=== PATIENT | female | born 1965 | race Caucasian/White ===

== ENCOUNTER 2024-07-15 13:50 | Emergency (ER) | payer OTHER, SELFPAY ==
[2024-07-15 14:19] VITALS: BP 167/54; PULSE 87; RESP 18; TEMP 36.5; O2SAT 97; BMI 36.9
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
--- OUTSIDE RECORDS SUMMARY | 2024-07-15 15:35 | XMS_ITS | Continuity of Care Document ---
Author Organization [facility] Address [address] [place] [address]- Care Team Providers Care Director Database Name Role Phone Santi James MD Primary Care Physician Encounter [facility] Date(s): 09/27/22 - 10/27/22 [facility] [address] [place], [place] [address] Allergies, Adverse Reactions, Alerts Substance Reaction Severity Status doxycycline Hives Active nitrofurantoin Pruritus Rash Active morphine Active benzonatate Speech impediment Active Percocet Active Demerol Active Lopid Muscle cramps Myalgia and myositis unspecified Active Biaxin Upset stomach Active Lipitor Myalgia unspecified Muscle cramps Active Levaquin Hives Active Immunizations Given and Recorded Vaccine Date Status Refusal Reason influenza virus vaccine, inactivated 08/01/22 Nitin rded influenza virus vaccine, inactivated 08/09/21 Nitin rded influenza virus vaccine, inactivated 07/11/20 Nitin rded influenza virus vaccine, inactivated 08/01/17 Nitin rded influenza virus vaccine, inactivated 07/23/17 Nitin rded influenza virus vaccine, inactivated 1 06/24/16 Gi cristel influenza virus vaccine, inactivated 2 07/31/15 Re corded influenza virus vaccine, inactivated 3 07/01/14 Gi cristel influenza virus vaccine, inactivated 4 07/02/12 Gi cristel influenza virus vaccine, inactivated 5 08/03/11 Gi cristel influenza virus vaccine, inactivated 6 07/08/10 Gi cristel influenza virus vaccine, inactivated 7 08/22/08 Gi cristel Measles/Mumps/Rubella Virus Vaccine 05/10/22 Recor ded Measles/Mumps/Rubella Virus Vaccine 04/12/22 Recor ded SARS-CoV-2 (COVID-19) mRNA-1273 vaccine 04/15/22 R ecorded SARS-CoV-2 (COVID-19) mRNA-1273 vaccine 06/30/21 R ecorded SARS-CoV-2 (COVID-19) mRNA BNT-162b2 vac 12/11/20 Recorded SARS-CoV-2 (COVID-19) mRNA BNT-162b2 vac 11/13/20 Recorded pneumococcal 13-valent vaccine 07/11/20 Recorded pneumococcal 13-valent vaccine 06/19/19 Recorded pneumococcal 13-valent vaccine 8 06/24/16 Given zoster vaccine, inactivated 08/20/19 Recorded zoster vaccine, inactivated 06/19/19 Recorded Influenza Virus Vaccine (oldterm) 08/03/19 Recorde d Influenza Virus Vaccine (oldterm) 9 07/11/09 Given Influenza Virus Vaccine (oldterm) 10 12/07/07 Give n tetanus/diphtheria/pertussis, acel(Tdap) 11 01/25/19 Given tetanus/diphtheria/pertussis, acel(Tdap) 11/12/17 Recorded pneumococcal 23-valent vaccine 12 08/31/18 Given pneumococcal 23-valent vaccine 13 08/24/15 Given Human Papillomavirus Vaccine 07/05/11 Given influ virus vac, H1N1, inactive(oldterm) 14 12/05/09 Given tetanus-diphtheria toxoids (Td) 15 05/12/07 Given tetanus-diphtheria toxoids (Td) 11/03/99 Given 1Admin Note: done @ [facility],form received 2Result Comment: [07/31/2015] [facility] 3Admin Note: done @ [facility] 4Admin Note: vis sheet given. 5Admin Note: work 6Admin Note: given at [facility] in [place] 7Admin Note: per pt, done at [facility] 8Admin Note: done @ [facility], form received 9Admin Note: given at work 10Admin Note: given in the fall 11Result Comment: [id number] 12Result Comment: [08/31/2018] [id number] 13Result Comment: [08/24/2015] given w/out incident 14Admin Note: per pt 15Admin Note: [facility] [employer] Medications acetaminophen 650 mg oral tablet, extended release 1 tablet, By Mouth, Every 8 hours, PRN NEEDED FOR PAIN, # 90 tablet, 3 Refills, [facility],156, cm, 04/04/22 7:36:00 EDT, Height, 78.9, kg, 04/04/22 7:36:00 EDT, Dry Weight Start Date: 04/08/22 Status: Ordered Albuterol (Eqv-ProAir HFA) 90 mcg/inh inhalation aerosol 2 puffs, Inhalation, Every 6 hours, PRN Wheezing/Shortness of Breath, # 6.7 Gm, 11 Refills, Maintenance, 08/29/22 9:07:00 EDT, [facility]/pharmacy #[id number], Partial fill upon patient request if the prescription is for a schedule II opioid drug., 2 puffs Inhalat... Start Date: 08/29/22 Status: Ordered aspirin 81 mg oral tablet 1 tablet = 81 mg, By Mouth, Daily, # 30 tablet, 10 Refills, Maintenance, 12/09/19 10:24:00 EST, Tablet Start Date: 12/09/19 Stop Date: 11/03/20 Status: Ordered azelastine nasal 0.15% spray 1 sprays, Nares, Both, 2 times a day, PRN for allergy symptoms, # 1 each, 4 Refills, Maintenance, 02/07/22 12:08:00 EDT, [place], [facility]/pharmacy #[id number], Partial fill upon patient request if the prescription is for a schedule II opioid drug., 1 sprays Nares... Start Date: 02/07/22 Stop Date: 07/07/22 Status: Ordered cetirizine 10 mg oral tablet 1 tablet, By Mouth, Daily, # 90 tablet, 3 Refills, [id number], 156, cm, 03/18/22 8:26:00 EDT, Height Start Date: 03/29/22 Status: Ordered CPAP at 8mmHg CPAP at 8mmHg, See Instructions, # 1 each, Refills 0, Tot. Refills 0, Maintenance, DX: sleep apnea length of need 99 months, 01/20/18 15:26:44, Compound Start Date: 01/20/18 Status: Ordered CPAP supplies (Mask, tubing, filter, water, cushion, water chamber) CPAP supplies (Mask, tubing, filter, water, cushion, water chamber), See Instructions, # 1 each, Refills 0, Tot. Refills 0, Maintenance, use with CPAP daily at bedtime for GARCIA G47.33, 04/13/21 11:11:00 EDT, Supply Start Date: 04/13/21 Status: Ordered fluticasone 50 mcg/inh nasal spray See Instructions, USE 1 SPRAY IN EACH NOSTRL 2 TIMES A DAY X 5 DAYS, AND THEN DAILY THEREAFTER, # 16 Gm, 11 Refills, 08/29/22 9:07:00 EDT, [facility]/pharmacy #[id number], USE 1 SPRAY IN EACH NOSTRL 2 TIMES A DAYX 5 DAYS, AND THEN DAILY THEREAFTER, 156.15, cm, 10... Start Date: 08/29/22 Status: Ordered levothyroxine 0.05 mg oral tablet See Instructions, TAKE 1 TABLET BY MOUTH EVERY DAY, # 90 tablet, 1 Refills, 09/01/22 19:54:00 EDT, [facility]/pharmacy #[id number], 156.15, cm, 08/29/22 8:44:00 EDT, Height, 79.5, kg, 06/06/22 11:17:00 EDT, Dry Weight Start Date: 09/01/22 Status: Ordered loratadine 10 mg oral tablet 10 mg, 1, tablet, By Mouth, Daily, # 30 tablet, Refills 11, Tot. Refills 11, Maintenance, 08/29/22 9:07:00 EDT, Route to Pharmacy Electronically, [facility]/pharmacy #[id number], Partial fill upon patient requestif the prescription is for a schedule II opioid lauro... Start Date: 08/29/22 Status: Ordered meloxicam 15 mg oral tablet 1 tablet = 15 mg, By Mouth, Daily, # 30 tablet, 2 Refills, Maintenance, 10/08/22 9:48:00 EST, Tablet, [facility]/pharmacy #[id number], replaces diclofenac, 156.15, cm, 08/29/22 8:44:00 EDT, Height, 79.5, kg, 06/06/22 11:17:00 EDT, Dry Weight Start Date: 10/08/22 Stop Date: 01/06/23 Status: Ordered multivitamin Multiple Vitamins oral tablet, chewable 1 tablet, By Mouth, Daily, # 30 tablet, 0 Refills, Maintenance, 12/09/19 10:30:00 EST Start Date: 12/09/19 Stop Date: 01/08/20 Status: Ordered Nucala Prefilled Autoinjector 100 mg/mL subcutaneous solution = 100 mg, Subcutaneous Infusion, Every 28 days, j45.40, # 1 each, 11 Refills, Maintenance, 03/25/2215:51:00 EDT, Partial fill upon patient request if the prescription is for a schedule II opioid drug. Start Date: 03/25/22 Status: Ordered omeprazole 20 mg oral enteric coated capsule 1 capsule = 20 mg, By Mouth, Daily, # 30 capsule, 6 Refills, Maintenance, 02/07/22 11:49:00 EDT, [facility], Partial fill upon patient request if the prescription is for a schedule II opioid drug. Start Date: 02/07/22 Stop Date: 03/09/22 Status: Ordered Paxlovid 150 mg-100 mg oral tablet See Instructions, 300mg nirmatrelvir (two 150mg tablets) with 100mg ritonavir (one tablet). All three tablets taken together twice daily for 5 days with or without food. Dispense 30 tablets, # 30 tablet, 0 Refills, Maintenance, 06/06/22 11:39:00 EDT,... Start Date: 06/06/22 Status: Ordered Singulair 10 mg oral tablet 10 mg, 1, tablet, By Mouth, Daily, # 30 tablet, Refills 11, Tot. Refills 11, Maintenance, 08/29/22 9:07:00 EDT, Route to Pharmacy Electronically, [facility]/pharmacy #[id number], Partial fill upon patient requestif the prescription is for a schedule II opioid lauro... Start Date: 08/29/22 Status: Ordered Symbicort 160mcg/4.5mcg Inhaler 2, puffs, Inhalation, 2 times a day, in the morning and the evening use with spacer chamber rinse mouth and throat after use, # 1 each, Refills 5, Tot. Refills 5, Maintenance, 10/17/22 10:03:00 EST, Aerosol, Route to Pharmacy Electronically, [id number]... Start Date: 10/17/22 Status: Ordered Vitamin D3 1000 intl units oral tablet 1 tablet = 25 mcg, By Mouth, Daily, 0 Refills, Maintenance, 02/07/22 12:14:00 EDT, Partial fill upon patient request if the prescription is for a schedule II opioid drug. Start Date: 02/07/22 Status: Ordered Problem List Condition Confirmation Course Effective Dates Status Health Status Informant Anxiety disorder Confirmed Active Asthma Confirmed Stable Active COVID-19 1 Confirmed 06/06/22 Active Carpal tunnel syndrome, mild Right Confirmed 06/2007 Active Family history of atrial fibrillation (mom) Confirmed Active FH: Diabetes mellitus Confirmed Active FH: premature coronary heart disease (dad) Confirmed Active Family history of thyroid disease in mother Confirmed Active Fibromyalgia Confirmed Active Fracture of finger of left hand Confirmed 01/16/15 Active Generalized osteoarthritis Confirmed Active History of pulmonary embolism Confirmed 02/14/19 Active Hypercholesterolemia Confirmed Active Hysterectomy - for endometriosis and fibroids Confirmed Active 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 Irritable bowel syndrome (IBS) Confirmed 01/27/12 Active Migraine Confirmed Active Obese class I Confirmed Active Obesity Confirmed Active GARCIA (obstructive sleep apnea) Confirmed 03/16/10 Active Recurrent sinusitis Confirmed Active Repair of hernia of abdominal wall Confirmed Active 1Problem added by Discern Expert Social History Social History Type Response Smoking Status Never smoker entered on: 10/12/14 Sex Patient Care team information Care Team Personnel Name: Justa HARRIS, Geni [place] Position: [facility] Associate Professional Member Role: Primary Care Nurse Address: Address: [address] [place] [address]- Name: Santi James MD Position: [facility] Primary Care Physician Member Role: PCP Address: Address: [address] [place], [place] [address] Care Team Related Persons Name: PITER BAILEY Address: [address] [place] [address] Name: DELMIS ADAMS Address: [place] [address] Name: RUPERT PALMER Address: [address] [place] [address] Name: DESIRAE CHAUDHARY Address: home [address] [place], [place]
--- OUTSIDE RECORDS SUMMARY | 2024-07-15 15:35 | XMS_ITS | Continuity of Care Document ---
Author Organization [facility] Address [address] [place] [address]- Care Team Providers Care Air Bag Buffer Name Role Phone Santi James MD Primary Care Physician [facility] Date[facility]): 05/27/22 - 06/26/22 [facility] [address] [place], [place] [address] Allergies, Adverse Reactions, Alerts Substance Reaction Severity Status doxycycline Hives Active nitrofurantoin Pruritus Rash Active morphine Active benzonatate Speech impediment Active Lopid Muscle cramps Myalgia and myositis unspecified Active Percocet Active Biaxin Upset stomach Active Lipitor Myalgia unspecified Muscle cramps Active Levaquin Hives Active Demerol Active Immunizations Given and Recorded Vaccine Date Status Refusal Reason SARS-CoV-2 (COVID-19) mRNA-1273 vaccine 04/15/22 R ecorded SARS-CoV-2 (COVID-19) mRNA-1273 vaccine 06/30/21 R ecorded influenza virus vaccine, inactivated 08/09/21 Nitin rded [...] virus vaccine, inactivated 7 08/22/08 Gi cristel SARS-CoV-2 (COVID-19) mRNA BNT-162b2 vac 12/11/20 Recorded [...] (Td) 11/03/99 Given 1Admin Note: done @ [facility],form received 2Result Comment: [07/31/2015] [facility] 3Admin Note: done @ [facility] 4Admin Note: vis sheet given. 5Admin Note: work 6Admin Note: given at [facility] in [place] 7Admin Note: per pt, done at [facility] 8Admin Note: done @ [facility], form received 9Admin Note: given at work 10Admin Note: given in the fall 11Result Comment: [id number] 12Result Comment: [08/31/2018] [id number] 13Result Comment: [08/24/2015] given w/out incident 14Admin Note: per pt 15Admin Note: [facility] Medications acetaminophen 650 mg oral tablet, extended release 1 tablet, By Mouth, Every 8 hours, PRN NEEDED FOR PAIN, # 90 tablet, 3 Refills, [facility] [id number],156, cm, 04/04/22 7:36:00 EDT, Height, 78.9, kg, 04/04/22 7:36:00 EDT, Dry Weight Start Date: 04/08/22 Status: Ordered Albuterol (Eqv-ProAir HFA) 90 mcg/inh inhalation aerosol 2 puffs, Inhalation, Every 6 hours, PRN Wheezing/Shortness of Breath, # 6.7 Gm, 11 Refills, Maintenance, 02/26/22 9:18:00 EDT, [facility]/pharmacy #[id number], Partial fill upon patient request if the prescription is for a schedule II opioid drug., 2 puffs Inhalat... Start Date: 02/26/22 Status: Ordered aspirin 81 mg oral tablet 1 tablet = 81 mg, By Mouth, Daily, # 30 tablet, 10 Refills, Maintenance, 12/09/19 10:24:00 EST, Tablet Start Date: 12/09/19 Stop Date: 11/03/20 Status: Ordered azelastine nasal 0.15% spray 1 sprays, Nares, Both, 2 times a day, PRN for allergy symptoms, # 1 each, 4 Refills, Maintenance, 02/07/22 12:08:00 EDT, [place], [facility]/pharmacy #[id number], Partial fill upon patient request if the prescription is for a schedule II opioid drug., 1 sprays Nares... Start Date: 02/07/22 Stop Date: 07/07/22 Status: Ordered cetirizine 10 mg oral tablet 1 tablet, By Mouth, Daily, # 90 tablet, 3 Refills, [facility] [id number], 156, cm, 03/18/22 8:26:00 EDT, Height Start [...] EDT, Supply Start Date: 04/13/21 Status: Ordered Diflucan 150 mg oral tablet 1 tablet = 150 mg, By Mouth, Once, # 1 tablet, 0 Refills, Soft Stop, 06/20/22 13:59:00 EDT, Table[place],[facility]/pharmacy #[id number], Partial fill upon patient request if the prescription is for a schedule II opioid drug., 155, cm, 06/06/22 11:17:00 EDT, Height, 79... Start Date: 06/20/22 Status: Ordered fluticasone 50 mcg/inh nasal spray See Instructions, USE 1 SPRAY IN EACH NOSTRL 2 TIMES A DAY X 5 DAYS, AND THEN DAILY THEREAFTER, # 48 mL, 1 Refills, [id number], 90, USE 1 SPRAY IN EACH NOSTRL 2 TIMES A DAY X 5 DAYS, AND THEN DAILY THEREAFTER, 156, cm, 04/04/22 7:36:00 EDT, Heigh... Start Date: 04/30/22 Status: Ordered levothyroxine 0.05 mg oral tablet See Instructions, TAKE 1 TABLET BY MOUTH EVERY DAY, # 90 tablet, 1 Refills, [id number], 156, cm, 02/07/22 11:31:00 EDT, Height Start Date: 02/19/22 Status: Ordered loratadine 10 mg oral tablet 10 mg, 1, tablet, By Mouth, Daily, # 30 tablet, Refills 11, Tot. Refills 11, Maintenance, 02/26/22 9:18:00 EDT, Route to Pharmacy Electronically, [facility]/pharmacy #[id number], Partial fill upon patient requestif the prescription is for a schedule II opioid lauro... Start Date: 02/26/22 Status: Ordered multivitamin Multiple Vitamins oral tablet, [...] By Mouth, Daily, # 30 tablet, Refills 12, Tot. Refills 12, Maintenance, 02/26/22 9:18:00 EDT, Route to Pharmacy Electronically, [facility]/pharmacy #[id number], Partial fill upon patient requestif the prescription is for a schedule II opioid lauro... Start Date: 02/26/22 Status: Ordered Symbicort 160mcg/4.5mcg Inhaler 2, puffs, Inhalation, 2 times a day, in the morning and the evening use with spacer chamber rinse mouth and throat after use, # 54 Gm, Refills 12, Tot. Refills 12, Maintenance, 02/26/22 9:18:00 EDT, Aerosol, Route to Pharmacy Electronically, [id number]... Start Date: 02/26/22 Status: Ordered Vitamin D3 1000 intl units oral tablet 1 tablet = 25 mcg, By Mouth, Daily, 0 Refills, Maintenance, 02/07/22 12:14:00 EDT, Partial fill upon patient request if the prescription is for a schedule II opioid drug. Start Date: 02/07/22 Status: Ordered Zithromax Z-Tramaine 250 mg oral tablet See Instructions, as directed on package labeling, # 1 pack/packet, 0 Refills, Maintenance, 06/17/22 17:01:00 EDT, [facility]/pharmacy #[id number], Partial fill upon patient request if the prescription is for a schedule II opioid drug., 155, cm, 06/06/22 11:17:00... Start Date: 06/17/22 Status: Ordered Problem List Condition Effective Dates Status Health Status Inform ant Anxiety disorder(Confirmed) Active Asthma(Confirmed)(Stable) Active COVID-19(Confirmed) 1 06/06/22 Active Carpal tunnel syndrome, mild Right(Confirmed) 06/2007 Active Family history of atrial fib rillation (mom)(Confirmed) Active FH: Diabetes mellitus(Confirmed) Active FH: premature coronary heart disease (dad)(Confirmed) Active Family history of thyroid di sease in mother(Confirmed) Active Fibromyalgia(Confirmed) Active Fracture of finger of left hand(Confirmed) 01/16/15 Active Generalized osteoarthritis(Confirmed) Active History of pulmonary embolism(Confirmed) 02/14/19 Active Hypercholesterolemia(Confirmed) Active Hysterectomy - for endometri osis and fibroids(Confirmed) Active IgA deficiency(Confirmed) 08/12/18 Active Irritable bowel syndrome (IBS)(Confirmed) 01/27/12 Active Migraine(Confirmed) Active Obese class I(Confirmed) Active Obesity(Confirmed) Active GARCIA (obstructive sleep apnea)(Confirmed) 03/16/10 Active Recurrent sinusitis(Confirmed) Active Repair of hernia of abdomina l wall(Confirmed) Active 1Problem added by Discern Expert Social History Social History Type Response Smoking Status Never smoker entered on: 10/12/14 Sex
--- OUTSIDE RECORDS SUMMARY | 2024-07-15 15:35 | XMS_ITS | Continuity of Care Document ---
Author Organization [facility] Address [address] [place] [address]- Care Team Providers Care Asphalt Heater Tender Name Role Phone Santi James MD Primary Care Physician [facility] Date[facility]): 10/16[facility]21 - 11/15/21 [facility] [address] [place], [place] [address] Allergies, Adverse Reactions, Alerts Substance Reaction Severity Status doxycycline Hives Active nitrofurantoin Pruritus Rash Active morphine Active benzonatate Speech impediment Active Zithromax gi upset Active Lopid Muscle cramps Myalgia and myositis unspecified Active Percocet Active Biaxin Upset stomach Active Augmentin 1 hives Active Lipitor Myalgia unspecified Muscle cramps Active Levaquin Hives Active Bactrim DS Stomach cramps Active 1may take cephalexin Immunizations Given and Recorded Vaccine Date Status Refusal Reason influenza virus vaccine, inactivated 08/09/21 Nitin rded [...] inactivated 7 08/22/08 Gi cristel SARS-CoV-2 (COVID-19) mRNA-1273 vaccine 06/30/21 R ecorded [...] (Td) 11/03/99 Given 1Admin Note: done @ [facility],form received 2Result Comment: [07/31/2015] [facility] 3Admin Note: done @ [facility] 4Admin Note: vis sheet given. 5Admin Note: work 6Admin Note: given at [facility] in [place] 7Admin Note: per pt, done at [facility] 8Admin Note: done @ [facility], form received 9Admin Note: given at work 10Admin Note: given in the fall 11Result Comment: [id number] 12Result Comment: [08/31/2018] [id number] 13Result Comment: [08/24/2015] given w/out incident 14Admin Note: per pt 15Admin Note: [facility] Medications aspirin 81 mg oral tablet 1 tablet = 81 mg, By Mouth, Daily, # 30 tablet, 10 Refills, Maintenance, 12/09/19 10:24:00 EST, Tablet Start Date: 12/09/19 Stop Date: 11/03/20 Status: Ordered Azelastine Nasal 2 times a day, 0 Refills, Maintenance, 03/13/20 10:33:00 EDT Start Date: 03/13/20 Status: Ordered cetirizine 10 mg oral tablet 1 tablet = 10 mg, By Mouth, Daily, # 90 tablet, 3 Refills, Maintenance, 03/13/21 8:26:00 EDT, Tablet, [facility] #[id number], 156, cm, 03/13/21 8:16:00 EDT, Height, 78.8, kg, 12/20/19 10:35:00 EST, Dry Weight Start Date: 03/13/21 Stop Date: 03/08/22 Status: Ordered CPAP at 8mmHg CPAP at [...] # 1 tablet, 0 Refills, Soft Stop, 10/16/21 9:58:00 EST, Tablet, [facility] #[id number], Partial fill upon patient request if the prescription is for a schedule II opioid drug., 156, cm, 09/04/21 8:41:00 EDT, Height, 78.8... Start Date: 10/16/21 Status: Ordered Flonase 50 mcg/inh nasal spray 1 sprays, Nares, Both, 2 times a day, in each nostril X 5 Days, and then daily thereafter, # 16 Gm,6 Refills, Maintenance, 11/06/21 10:21:00 EST, [place], [id number], Partial fill upon patientrequest if the prescription is for a schedule II op... Start Date: 11/06/21 Status: Ordered FLUoxetine 10 mg oral capsule 1, capsule, By Mouth, Daily, # 30 capsule, Refills 5, Route to Pharmacy Electronically, [id number], 156, cm, 09/04/21 8:41:00 EDT, Height, 78.8, kg, 12/20/19 10:35:00 EST, Dry Weight Start Date: 10/22/21 Status: Ordered ipratropium nasal 21 mcg/inh spray 2 sprays, Nares, Both, 2 times a day, # 30 mL, 0 Refills, Maintenance, 07/25/20 16:52:00 EDT, [place], [facility]/pharmacy #[id number], 2 sprays Nares, Both 2 times a day, 156, cm, 03/13/20 10:31:00 EDT, Height, 78.8, kg, 12/20/19 10:35:00 EST, Dry Weight Start Date: 07/25/20 Status: Ordered levothyroxine 0.05 mg oral tablet 1 tablet = 50 mcg, By Mouth, Daily, # 90 tablet, 3 Refills, Maintenance, 03/13/21 8:24:00 EDT, Tablet, [facility] #[id number], 156, cm, 03/13/21 8:16:00 EDT, Height, 78.8, kg, 12/20/19 10:35:00 EST, Dry Weight Start Date: 03/13/21 Stop Date: 03/08/22 Status: Ordered montelukast 10 mg oral tablet See Instructions, TAKE 1 TABLET BY MOUTH DAILY, # 90 tablet, Refills 1, Instructions Replace Required Details, Route to Pharmacy Electronically, [facility] #[id number], 156, cm, 03/13/21 8:35:00EDT, Height, 78.8, kg, 12/20/19 10:35:00 EST, Dry W... Start Date: 06/26/21 Status: Ordered multivitamin Multiple Vitamins oral tablet, chewable 1 tablet, By Mouth, Daily, # 30 tablet, 0 Refills, Maintenance, 12/09/19 10:30:00 EST Start Date: 12/09/19 Stop Date: 01/08/20 Status: Ordered Omeprazole By Mouth, Daily, 0 Refills, Maintenance, 08/23/19 8:18:58 EDT Start Date: 08/23/19 Status: Ordered ProAir HFA 90 mcg/inh inhalation aerosol with adapter 2, puffs, Inhalation, Every 4 hours, PRN, # 8.5 each, Refills 4, Route to Pharmacy Electronically, [id number], [id number], 156, cm, 09/04/21 8:41:00 EDT, Height, 78.8, kg, 12/20/19 10:35:00 EST, Dry Weight Start Date: 10/08/21 Status: Ordered Symbicort 160mcg/4.5mcg Inhaler 2, puffs, Inhalation, 2 times a day, in the morning and the evening use with spacer chamber rinse mouth and throat after use, # 54 Gm, Refills 12, Tot. Refills 12, Maintenance, 09/04/21 9:38:00 EDT, Aerosol, Route to Pharmacy Electronically, [id number]... Start Date: 09/04/21 Status: Ordered Zithromax Z-Tramaine 250 mg oral tablet See Instructions, as directed on package labeling, # 1 pack/packet, 0 Refills, Maintenance, 10/11/21 17:06:00 EST, [facility]/pharmacy #[id number], Partial fill upon patient request if the prescription is for a schedule II opioid drug., 156, cm, 09/04/21 8:41:00 E... Start Date: 10/11/21 Status: Ordered Problem List Condition Effective Dates Status Health Status Inform ant Anxiety disorder(Confirmed) Active Asthma(Confirmed)(Stable) Active Carpal tunnel syndrome, mild Right(Confirmed) 06/2007 [...] bowel syndrome (IBS)(Confirmed) 01/27/12 Active Migraine(Confirmed) Active Obesity(Confirmed) Active GARCIA (obstructive sleep apnea)(Confirmed) 03/16/10 Active Recurrent sinusitis(Confirmed) Active Repair of hernia of abdomina l wall(Confirmed) Active Social History Social History Type Response Smoking Status Never smoker entered on: 10/12/14 Sex
--- OUTSIDE RECORDS SUMMARY | 2024-07-15 15:35 | XMS_ITS | Continuity of Care Document ---
Author Organization [facility] Address [address] [place] [address]- Care Team Providers Care In Flight Technician Name Role Phone Santi James MD Primary Care Physician [facility] Date[facility]): 02/26[facility]21 - 03/28/21 [facility] [address] [place], [place] [address] Allergies, Adverse Reactions, Alerts Substance Reaction Severity [...] Vaccine Date Status Refusal Reason SARS-CoV-2 (COVID-19) mRNA BNT-162b2 vac 12/11/20 Recorded SARS-CoV-2 (COVID-19) mRNA BNT-162b2 vac 11/13/20 Recorded pneumococcal 13-valent vaccine 07/11/20 Recorded pneumococcal 13-valent vaccine 06/19/19 Recorded pneumococcal 13-valent vaccine 1 06/24/16 Given influenza virus vaccine, inactivated 07/11/20 Nitin rded influenza virus vaccine, inactivated 08/01/17 Nitin rded influenza virus vaccine, inactivated 07/23/17 Nitin rded influenza virus vaccine, inactivated 2 06/24/16 Gi cristel influenza virus vaccine, inactivated 3 07/31/15 Re corded influenza virus vaccine, inactivated 4 07/01/14 Gi cristel influenza virus vaccine, inactivated 5 07/02/12 Gi cristel influenza virus vaccine, inactivated 6 08/03/11 Gi cristel influenza virus vaccine, inactivated 7 07/08/10 Gi cristel influenza virus vaccine, inactivated 8 08/22/08 Gi cristel zoster vaccine, inactivated 08/20/19 Recorded zoster vaccine, [...] (Td) 11/03/99 Given 1Admin Note: done @ [facility], form received 2Admin Note: done @ [facility],form received 3Result Comment: [07/31/2015] [facility] 4Admin Note: done @ [facility] 5Admin Note: vis sheet given. 6Admin Note: work 7Admin Note: given at [facility] in [place] 8Admin Note: per pt, done at [facility] 9Admin Note: given at work 10Admin Note: given in the fall 11Result Comment: [id number] 12Result Comment: [08/31/2018] [id number] 13Result Comment: [08/24/2015] given w/out incident 14Admin Note: per pt 15Admin Note: [facility] Medications acetaminophen 650 mg oral tablet, extended release 1 tablet = 650 mg, By Mouth, Every 8 hours, PRN Pain , Moderate, for 30 days, # 90 tablet, 7 Refills, Acute 10/24/21 12:47:00 EST, 02/26/21 12:47:00 EDT, ER Tablet, [facility] #[id number], 156, cm, 03/13/20 10:31:00 EDT, Height, 78.8, kg, 02/17/2... Start Date: 02/26/21 Stop Date: 10/24/21 Status: Ordered albuterol 0.083% inhalation solution 3 mL = 2.5 mg, Inhalation, Every 6 hours, PRN for wheezing, Dx: asthma, # 100 each, 4 Refills, Maintenance, 12/01/19 12:54:00 EST, Solution, [facility]/pharmacy #[id number], 156, cm, 12/01/19 12:40:00 EST, Height, 79.6, kg, 03/10/19 14:10:00 EDT, Dry Weight Start Date: 12/01/19 Stop Date: 04/29/20 Status: Ordered albuterol CFC free 90 mcg/inh inhalation aerosol 2, puffs, Inhalation, Every 4 hours, PRN, # 1 each, Refills 3, Tot. Refills 3, Maintenance, 03/13/21 8:25:00 EDT, Aerosol, Route to Pharmacy Electronically, [id number], [facility] #[id number], 156, cm, 03/13/21 8:16:00 E... Start Date: 03/13/21 Status: Ordered aspirin 81 mg oral tablet [...] 3 Refills, Maintenance, 03/13/21 8:26:00 EDT, Tablet, [facility] #[id number], 156, cm, 03/13/21 8:16:00 EDT, Height, 78.8, kg, 12/20/19 10:35:00 EST, Dry Weight Start Date: 03/13/21 Stop Date: 03/08/22 Status: Ordered CPAP at 8mmHg CPAP at 8mmHg, See Instructions, # 1 each, Refills 0, Tot. Refills 0, Maintenance, DX: sleep apnea length of need 99 months, 01/20/18 15:26:44, Compound Start Date: 01/20/18 Status: Ordered ipratropium nasal 21 mcg/inh spray 2 sprays, Nares, Both, 2 times a day, # 30 mL, 0 Refills, Maintenance, 07/25/20 16:52:00 EDT, [place], [facility]/pharmacy #[id number], 2 sprays Nares, Both 2 times a day, 156, cm, 03/13/20 10:31:00 EDT, Height, 78.8, kg, 12/20/19 10:35:00 EST, Dry Weight Start Date: 07/25/20 Status: Ordered levothyroxine 0.05 mg oral tablet 1 tablet = 50 mcg, By Mouth, Daily, # 90 tablet, 3 Refills, Maintenance, 03/13/21 8:24:00 EDT, Tablet, [facility] #[id number], 156, cm, 03/13/21 8:16:00 EDT, Height, 78.8, kg, 12/20/19 10:35:00 EST, Dry Weight Start Date: 03/13/21 Stop Date: 03/08/22 Status: Ordered montelukast 10 mg oral tablet 1, tablet, By Mouth, Daily, # 90 tablet, Refills 2, Tot. Refills 0, Maintenance, 10/05/20 15:45:00 EST, Route to Pharmacy Electronically, [id number], 156, cm, 03/13/20 10:31:00 EDT, Height, 78.8, kg, 12/20/19 10:35:00 EST, Dry Weight Start Date: 10/05/20 Status: Ordered multivitamin Multiple Vitamins oral tablet, chewable 1 tablet, By Mouth, Daily, # 30 tablet, 0 Refills, Maintenance, 12/09/19 10:30:00 EST Start Date: 12/09/19 Stop Date: 01/08/20 Status: Ordered Omeprazole By Mouth, Daily, 0 Refills, Maintenance, 08/23/19 8:18:58 EDT Start Date: 08/23/19 Status: Ordered Qvar Redihaler 40 mcg/inh inhalation aerosol 1 puffs, Inhalation, 2 times a day, rinse mouth and throat after use, # 1 each, 0 Refills, Maintenance, 09/14/20 8:47:00 EST, [id number], 1 puffs Inhalation 2 times a day,x30 days,Instr:rinsemouth and throat after use, 156, cm, 03/13/20 10:31... Start Date: 09/14/20 Stop Date: 10/14/20 Status: Ordered Problem List Condition Effective Dates [...]
--- OUTSIDE RECORDS SUMMARY | 2024-07-15 15:35 | XMS_ITS | Continuity of Care Document ---
Author Organization [facility] Address [address] [place] [address]- Care Team Providers Care Manager Control Name Role Phone Santi James MD Primary Care Physician Encounter [facility] Date(s): 06/01/24 - 07/01/24 [facility] [address] [place] [address]- Allergies, Adverse Reactions, Alerts Substance Reaction Severity Status doxycycline Hives Active morphine Active Percocet Active nitrofurantoin Pruritus Rash Active predniSONE Anaphylaxis Active benzonatate Speech impediment Active Lopid Muscle cramps Myalgia and myositis unspecified Active Biaxin Upset stomach Active Topamax Skin rash Active ezetimibe Breast painful Active Lipitor Myalgia unspecified Muscle cramps Active Levaquin Hives Active Demerol Active tiZANidine Anaphylaxis Active Immunizations Given and Recorded Vaccine Date Status Refusal Reason influenza virus vaccine, inactivated 07/24/23 Nitin rded influenza virus vaccine, inactivated 08/01/22 Nitin rded [...] virus vaccine, inactivated 7 08/22/08 Gi cristel pneumococcal 20-valent conjugate vaccine 06/30/23 Recorded Measles/Mumps/Rubella Virus Vaccine 05/10/22 Recor ded Measles/Mumps/Rubella [...] (Td) 11/03/99 Given 1Admin Note: done @ [facility],form received 2Result Comment: [07/31/2015] [facility] 3Admin Note: done @ [facility] 4Admin Note: vis sheet given. 5Admin Note: work 6Admin Note: given at [facility] [place] 7Admin Note: per pt, done at [facility] 8Admin Note: done @ [facility], form received 9Admin Note: given at work 10Admin Note: given in the fall 11Result Comment: [id number] 12Result Comment: [08/31/2018] [id number] 13Result Comment: [08/24/2015] given w/out incident 14Admin Note: per pt 15Admin Note: [facility] Medications RAVINDRA bandage 4 inch width RAVINDRA bandage 4 inch width, See Instructions, # 2 each, Refills 0, Tot. Refills 0, Maintenance, applyas demonstrated once daily Dx: right gastrocnemius strain, 08/12/23 15:25:00 EDT, Supply Start Date: 08/12/23 Status: Ordered acetaminophen 650 mg oral tablet, extended release 1 tablet, By Mouth, Every 8 hours, PRN NEEDED FOR PAIN, # 90 tablet, 3 Refills, Maintenance, 01/17/23 12:44:00 EDT, [id number], 156.15, cm, 11/29/22 14:40:00 EST, Height, 79.5, kg, 06/06/22 11:17:00 EDT, Dry Weight Start Date: 01/17/23 Status: Ordered aspirin 81 mg oral tablet 1 tablet = 81 mg, By Mouth, Daily, # 30 tablet, 10 Refills, Maintenance, 12/09/19 10:24:00 EST, Tablet Start Date: 12/09/19 Stop Date: 11/03/20 Status: Ordered azelastine 137 mcg/inh (0.1%) nasal spray See Instructions, USE 1 SPRAY IN BOTH NOSTRILS 2 TIMES A DAY NEEDED FOR ALLERGIES, # 90 Unknown,1 Refills, Maintenance, 06/10/23 8:18:00 EDT, [id number], 90, USE 1 SPRAY IN BOTH NOSTRILS 2 TIMES A DAY NEEDED FOR ALLERGIES, 155, cm, ... Start Date: 06/10/23 Status: Ordered CPAP Machine See Instructions, # 1 each, Maintenance, AutoCPAP 8-14 cm H20, use Daily when sleeping, 01/16/23 16:48:00 EDT, Supply Start Date: 01/16/23 Status: Ordered Diflucan 150 mg oral tablet See Instructions, 1 tablet By Mouth Once, repeat in 72 hours if no resolution of discharge., # 2 tablet, 0 Refills, Maintenance, 05/20/24 13:48:00 EDT, Tablet, [facility]/pharmacy #[id number], Partial fill upon patient request if the prescription is for a schedule... Start Date: 05/20/24 Status: Ordered EpiPen 2-Tramaine 0.3 mg injectable kit = 0.3 mg, Intramuscular, Once, PRN Anaphylactic Reaction, may repeat if necessary, # 1 each, 11 Refills, Soft Stop, 03/14/23 15:31:00 EDT, [facility]/pharmacy #[id number], Partial fill upon patient request if theprescription is for a schedule II opioid drug., 155... Start Date: 03/14/23 Status: Ordered fexofenadine 180 mg oral tablet 1 tablet = 180 mg, By Mouth, Daily, PRN for allergy symptoms, # 90 tablet, 4 Refills, Maintenance, 09/02/23 11:04:00 EDT, Tablet, [facility]/pharmacy #[id number], Partial fill upon patient request if the prescription is for a schedule II opioid drug., 155, cm, ... Start Date: 09/02/23 Stop Date: 11/25/24 Status: Ordered ibuprofen 800 mg oral tablet See Instructions, PLEASE SEE ATTACHED FOR DETAILED DIRECTIONS, # 90 tablet, Refills 2, Maintenance,06/25/24 16:54:00 EDT, Instructions Replace Required Details, [facility] to Pharm[facility]ically[id number], 155, cm, 05/24/24 13:16:00 EDT, Height... Start Date: 06/25/24 Status: Ordered levothyroxine 0.05 mg oral tablet 1 tablet, By Mouth, Daily, # 90 tablet, 3 Refills, Maintenance, 08/12/23 15:31:00 EDT, [facility]/pharmacy#[id number], 155, cm, 08/12/23 15:09:00 EDT, Height, 83.9, kg, 03/13/23 4:46:00 EDT, Dry Weight Start Date: 08/12/23 Stop Date: 08/06/24 Status: Ordered montelukast 10 mg oral tablet 1, tablet, By Mouth, Daily, # 90 tablet, Refills 3, Maintenance, 11/23/23 8:40:00 EST, Route to Pharmacy Electronically, [id number], 155, cm, 11/18/23 16:29:00 EST, Height, 83.7, kg, 11/06/23 9:08:00 EST, Dry Weight Start Date: 11/23/23 Status: Ordered multivitamin Multiple Vitamins oral tablet, chewable 1 tablet, By Mouth, Daily, # 30 tablet, 0 Refills, Maintenance, 12/09/19 10:30:00 EST Start Date: 12/09/19 Stop Date: 01/08/20 Status: Ordered Ventolin HFA 108 mcg/inh inhalation aerosol with adapter 2 puffs, Inhalation, 4 times a day, PRN for wheezing, # 8.5 Gm, 3 Refills, Maintenance, 05/24/24 13:19:00 EDT, Aerosol, [id number], 155, cm, 05/24/24 13:16:00 EDT, Height, 83.7, kg, 11/06/23 9:08:00 EST, Dry Weight Start Date: 05/24/24 Stop Date: 09/21/24 Status: Ordered Vitamin D3 1000 intl units oral tablet 1 tablet = 25 mcg, By Mouth, Daily, # 90 tablet, 2 Refills, Maintenance, 01/27/24 14:50:00 EDT, Tablet, [id number], may use OTC formulation, 155, cm, 01/23/24 16:41:00 EDT, Height, 83.7, kg, 11/06/23 9:08:00 EST, Dry Weight Start Date: 01/27/24 Stop Date: 10/23/24 Status: Ordered Problem List Condition Confirmation Course Effective Dates Status Health Status Informant Anxiety disorder Confirmed Active Back pain Confirmed Active Carpal tunnel syndrome, mild Right Confirmed 06/2007 Active Family history of atrial fibrillation (mom) Confirmed Active FH: Diabetes mellitus Confirmed Active FH: premature coronary heart disease (dad) Confirmed Active Family history of thyroid disease in mother Confirmed Active Fibromyalgia Confirmed Active Fracture of finger of left hand Confirmed 01/16/15 Active Generalized osteoarthritis Confirmed Active History of pulmonary embolism Confirmed 02/14/19 Active History of COVID-19 1 Confirmed 06/06/22 Active Hyperglycemia Confirmed 04/03/22 Active Hypercholesterolemia Confirmed Active Hypothyroidism Confirmed Active Hysterectomy - for endometriosis and fibroids Confirmed Active 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 Irritable bowel syndrome (IBS) Confirmed 01/27/12 Active Migraine Confirmed Active Asthma, mild intermittent Confirmed Stable Active Obese class I Confirmed Active GARCIA (obstructive sleep apnea) Confirmed 03/16/10 Active Osteoporosis Confirmed 01/10/23 Active Recurrent sinusitis Confirmed Active Repair of hernia of abdominal wall Confirmed Active 1Problem added by Discern Expert Social History Social History Type Response Smoking Status Never smoker entered on: 10/12/14 Sex Patient Care team information Care Team Personnel Name: Justa VULCANIZED FIBER UNIT OPERATOR, Geni Orlando Position: [facility] Associate Professional Member Role: Primary Care Nurse Name: Talia Matute RN Position: [facility] RN Member Role: Primary Care Nurse Name: Darshan Benz RN Position: [facility] Outreach Member Role: Primary Care Nurse Name: Santi James MD Position: [facility] Physician - Primary Care Member Role: PCP Address: Address: [address] [place] [address] Adult [place] [address]- Care Team Related Persons Name: PITER BAILEY Address: home [address] [place] [address] Name: DELMIS ADAMS Address: [place] [address] Name: RUPERT PALMER Address: [address] [place] [address] Name: DESIRAE CHAUDHARY Address: home [address] [place], [place]
--- OUTSIDE RECORDS SUMMARY | 2024-07-15 15:36 | XMS_ITS | Continuity of Care Document ---
Author Organization [facility] Address [address] [place] [address]- Care Team Providers Care Journalism Internship Name Role Phone Santi James MD Primary Care Physician Encounter [facility] Date(s): 08/12/23 - 08/19/23 [facility] [address] [place], [place] [address] Encounter Diagnosis Tightness of right gastrocnemius muscle(Discharge Diagnosis) - 08/12/23 Attending Physician: Santi James MD Allergies, Adverse Reactions, Alerts Substance Reaction Severity Status doxycycline Hives Active nitrofurantoin Pruritus Rash Active morphine Active benzonatate Speech impediment Active Percocet Active Biaxin Upset stomach Active Topamax Skin rash Active Levaquin Hives Active tiZANidine Anaphylaxis Active predniSONE Anaphylaxis Active Lopid Muscle cramps Myalgia and myositis unspecified Active Lipitor Myalgia unspecified Muscle cramps Active Demerol Active Immunizations Given and Recorded [...] (Td) 11/03/99 Given 1Admin Note: done @ [facility],form received 2Result Comment: [07/31/2015] [facility] 3Admin Note: done @ [facility] 4Admin Note: vis sheet given. 5Admin Note: work 6Admin Note: given at [facility] [place] 7Admin Note: per pt, done at [facility] 8Admin Note: done @ [facility], form received 9Admin Note: given at work 10Admin Note: given in the fall 11Result Comment: [id number] 12Result Comment: [08/31/2018] [id number] 13Result Comment: [08/24/2015] given w/out incident 14Admin [...] tablet, 3 Refills, Maintenance, 01/17/23 12:44:00 EDT, [id number], 156.15, cm, 11/29/22 14:40:00 EST, Height, 79.5, [...] 90 Unknown,1 Refills, Maintenance, 06/10/23 8:18:00 EDT, [facility], 90, USE 1 SPRAY IN BOTH NOSTRILS 2 TIMES A DAY NEEDED FOR ALLERGIES, 155, cm, ... Start Date: 06/10/23 Status: Ordered CeleBREX 100 mg oral capsule 1 capsule = 100 mg, By Mouth, 2 times a day, PRN for pain, # 60 capsule, 4 Refills, Maintenance, 08/12/23 15:29:00 EDT, Capsule, [id number], replaces ibuprofen, 155, cm, 08/12/23 15:09:00 EDT, Height, 83.9, kg, 03/13/23 4:46:00 EDT, Dry Weight Start Date: 08/12/23 Stop Date: 01/09/24 Status: Ordered CPAP Machine See Instructions, # 1 each, Maintenance, AutoCPAP 9-12 cm H20, use Daily when sleeping, 01/16/23 16:48:00 EDT, Supply Start Date: 01/16/23 Status: Ordered EpiPen 2-Tramaine 0.3 mg injectable kit = 0.3 mg, Intramuscular, Once, PRN Anaphylactic Reaction, may repeat if necessary, # 1 each, 11 Refills, Soft Stop, 03/14/23 15:31:00 EDT, [facility]/pharmacy #[id number], Partial fill upon patient request if theprescription is for a schedule II opioid drug., 155... Start Date: 03/14/23 Status: Ordered ergocalciferol 88820 iu oral capsule 50,000 International_Units, 1, capsule, By Mouth, Every week, # 12 capsule, Refills 0, Tot. Refills0, Maintenance, 06/12/23 7:24:00 EDT, Route to Pharmacy Electronically, [facility]/pharmacy #[id number], Partialfill upon patient request if the prescription is fo... Start Date: 06/12/23 Stop Date: 09/04/23 Status: Ordered fexofenadine 180 mg oral tablet 1 tablet = 180 mg, By Mouth, Daily, # 30 tablet, 0 Refills, Maintenance, 03/14/23 15:41:00 EDT, Tablet, Partial fill upon patient request if the prescription is for a schedule II opioid drug. Start Date: 03/14/23 Status: Ordered levothyroxine 0.05 mg oral tablet 1 tablet, By Mouth, Daily, # 90 tablet, 3 Refills, Maintenance, 08/12/23 15:31:00 EDT, [facility]/pharmacy#[id number], 155, cm, 08/12/23 15:09:00 EDT, Height, 83.9, kg, 03/13/23 4:46:00 EDT, Dry Weight Start Date: 08/12/23 Stop Date: 08/06/24 Status: Ordered montelukast 10 mg oral tablet 10 mg, 1, tablet, By Mouth, Daily, Refills 0, Maintenance, 03/14/23 15:42:00 EDT, Partial fill uponpatient request if the prescription is for a schedule II opioid drug. Start Date: 03/14/23 Status: Ordered multivitamin Multiple Vitamins oral tablet, chewable 1 tablet, By Mouth, Daily, # 30 tablet, 0 Refills, Maintenance, 12/09/19 10:30:00 EST Start Date: 12/09/19 Stop Date: 01/08/20 Status: Ordered omeprazole 20 mg oral enteric coated capsule 1 capsule = 20 mg, By Mouth, 2 times a day, # 30 capsule, 6 Refills, Maintenance, 02/07/22 11:49:00EDT, [facility], Partial fill upon patient request if the prescription is for a schedule II opioid drug. Start Date: 02/07/22 Stop Date: 03/09/22 Status: Ordered Ventolin HFA 108 mcg/inh inhalation aerosol with adapter 2 puffs, Inhalation, 4 times a day, PRN for wheezing, # 18 Gm, 4 Refills, Maintenance, 03/28/23 13:04:00 EDT, Aerosol, [id number], replaced Proventil that is not available, 155, cm, 03/13/23 11:02:00 EDT, Height, 83.9, kg, 03/13/23 4:46:00 EDT... Start Date: 03/28/23 Stop Date: 08/25/23 Status: Ordered Vitamin D3 50,000 intl units oral capsule 1 capsule = 50,000 International_Units, By Mouth, Every 7 days, # 4 capsule, 3 Refills, Maintenance, 04/21/23 10:20:00 EDT, Capsule, Partial fill upon patient request if the prescription is for a schedule II opioid drug. Start Date: 04/21/23 Stop Date: 08/11/23 Status: Ordered Problem List Condition Confirmation Course [...] Active Asthma, mild intermittent Confirmed Stable Active GARCIA (obstructive sleep apnea) Confirmed 03/16/10 Active Osteoporosis Confirmed 01/10/23 Active Recurrent sinusitis Confirmed Active Repair of hernia of abdominal wall Confirmed Active Severe obesity (BMI 35.0-39.9) with comorbidity Confirmed Active 1Problem added by Discern Expert Diagnosis Diagnosis Type Effective Dates Health Status Clinical Service Informant Tightness of right gastrocnemius muscle Discharge Diagnosis 08/12/23 Vital Signs Most recent to oldest [Reference Range]: 1 Height 155 cm (08/12/23 3:09 PM) Weight 84.9 kg (08/12/23 3:09 PM) Oxygen Saturation [94-100 %] 98 % (08/12/23 3:09 PM) Pulse Rate [55-90 bpm] 98 bpm *H* (08/12/23 3:09 PM) Body Mass Index [18.5-24.99 kg/m2] 35.34 kg/m2 *>HHI* (08/12/23 3:09 PM) Blood Pressure [90-138/55-84 mm Hg] 134/ 72mm Hg (08/12/23 3:09 PM) Mode of Delivery (Oxygen) Room air (08/12/23 3:09 PM) Blood pressure sites Arm, left (08/12/23 3:09 PM) Social History Social History Type Response Smoking Status Never smoker entered on: 10/12/14 Sex Note * Rosanna Hernandez: PERFORM, SIGN, VERIFY Event Display: Patient Education/Instruction Authored Date: [id number] [facility] *[facility] Clinical Summary Name IAN BAILEY Age 58 Years 1965 PCP Jacob DORAN, Santi PCP Visit Date 08/12/2023 14:43:00 Patient Instructions 1. you may apply the RAVINDRA bandage like I demonstrated today 2. I am glad you signed up for physical therapy 3. may apply heat to affected areas 4. use Celebrex 100mg twice a day as needed for inflammation and pain. Additional Instructions: Scheduled Appointments?? Future Appointments ?*[facility] ?[address],??[place],??[address] ?Phone:??--?Fax:??-- ?Appt. Date:??11/07/2023?4:20 PM ?Scheduled Provider:??aSnti James MD ?*[facility] ?[address],??[place],??[address] ?Phone:??--?Fax:??-- ?Appt. Date:??11/10/2023?6:40 PM ?Scheduled Provider:??Santi James MD Follow-Up Instructions ?? Diagnosis Other specified disorders of muscle Medications: Please continue your medications until treatment is completed or stopped by your provider. Discuss any questions related to medications with your provider. New Medications [id number], [address], [place] [id number], [phone] Celecoxib (CeleBREX 100 mg oral capsule) 1 capsule Oral twice a day as needed for pain for 30 Days.Refills: 4. Next Dose: - Durable Medical Equipment (RAVINDRA bandage 4 inch width) apply as demonstrated once daily Dx: right gastrocnemius strain. Refills: 0. Next Dose: Medications to Continue Taking That Have Changed [facility]/pharmacy #[id number], [address], [place] [id number], [phone] - Levothyroxine (levothyroxine 0.05 mg oral tablet) 1 tab(s) Oral Daily for 90 Days. Refills: 3. Next Dose: Medications to Continue with No Changes These medications were not printed or sent to your pharmacy Acetaminophen (acetaminophen 650 mg oral tablet, extended release) 1 tab(s) Oral every 8 hours as needed NEEDED FOR PAIN. Refills: 3. Next Dose: Albuterol (Ventolin HFA 108 mcg/inh inhalation aerosol with adapter) 2 puff(s) Inhalation 4 times aday as needed for wheezing for 30 Days. Refills: 4. Next Dose: Aspirin (aspirin 81 mg oral tablet) 1 tab(s) Oral Daily for 30 Days. Refills: 10. Next Dose: Azelastine Nasal (azelastine 137 mcg/inh (0.1%) nasal spray) USE 1 SPRAY IN BOTH NOSTRILS 2 TIMES ADAY NEEDED FOR ALLERGIES. Refills: 1. Next Dose: Cholecalciferol (Vitamin D3 50,000 intl units oral capsule) 1 capsule Oral every 7 days for 28 Days. Refills: 3. Next Dose: Durable Medical Equipment (CPAP Machine) AutoCPAP 9-12 cm H20, use Daily when sleeping. Refills: 0. Next Dose: EPINEPHrine (EpiPen 2-Tramaine 0.3 mg injectable kit) 0.3 Milligram Intramuscular once as needed Anaphylactic Reaction. may repeat if necessary. Refills: 11. Next Dose: Ergocalciferol (ergocalciferol 88442 iu oral capsule) 1 capsule Oral every week for 12 week(s). Refills: 0. Next Dose: Fexofenadine (fexofenadine 180 mg oral tablet) 1 tab(s) Oral Daily. Next Dose: Montelukast (montelukast 10 mg oral tablet) 1 tab(s) Oral Daily. Next Dose: Multivitamin (multivitamin Multiple Vitamins oral tablet, chewable) 1 tab(s) Oral Daily for 30 Days. Refills: 0. Next Dose: Omeprazole (omeprazole 20 mg oral enteric coated capsule) 1 capsule Oral twice a day for 30 Days. Next Dose: Allergy Info:?? tiZANidine; Demerol; Levaquin; Topamax; Lipitor; Biaxin; Percocet; Lopid; benzonatate; predniSONE; morphine; nitrofurantoin; doxycycline Medications Given This Visit Future Orders ?No future orders Vital Signs Height 155 cm Weight 84.9 kg BMI 35.34 kg/m2 Blood Pressure 134 mm Hg/72 mm Hg Temperature Pulse Rate 98 bpm Respiratory Rate 02 Sat Mode of Delivery 98 %/Room air You can now view a summary of your hospital visit from the comfort of your home through a free online portal called [employer]. [employer] is a website that allows you to securely view your medical information including discharge summary, medications and follow-up visits. ??You can alsosend a secure electronic message to your doctor???s office to request appointments, renew medications or just ask a question. You can enroll at [email or web address] or register during your next office visit. Disclaimer:?? The information provided is of a general nature and is intended to be used in conjunction with the recommendations and advice of your health care practitioner. ??Every effort has been made to ensure that the information provided is accurate and complete at the time it is provided to you however, as your needs change, or, as new ??information becomes available, different or additional instructions may be required. If you have questions, please consult with your primary care provider or pharmacist, as appropriate. ??This information is not intended to serve as substitution for assessment and evaluation by a qualified health care provider. If you do not have a primary care provider, you may find a [facility] provider by calling [facility] [employer] Link at [phone]. [facility], in keeping with [facility] guidance, no longer requires face masks for staff, patientsor visitors in most situations. Similar to time spent indoors at other locations, there is the chance that you were exposed to respiratory viruses during your time with us (such as flu or COVID-19).? If you develop symptoms concerning for a viral respiratory infection, please seek testing (and treatment if indicated) from your medical provider or home test kit. For information about the plan of care including goals and instructions for your diagnosis, please see the patient education orders section of this document. Patient Education Materials?? The content of this educational material or handout may have been modified, supplemented, or adapted from its original content and format to support your individualized medical care. Additional Provider Instructions: 1. you may apply the RAVINDRA bandage like I demonstrated today 2. I am glad you signed up for physical therapy 3. may apply heat to affected areas 4. use Celebrex 100mg twice a day as needed for inflammation and pain. Patient Care team information Care Team Personnel Name: Justa HARRIS, Geni Orlando Position: [facility] Associate Professional Member Role: Primary Care Nurse Address: Address: [address] [place] [address]- [place] Name: Talia Matute RN Position: [facility] RN Member Role: Primary Care Nurse Name: Santi James MD Position: [facility] Physician - Primary Care Member Role: PCP Address: Address: [address] [place] [address]- Care Team Related Persons Name: PITER BAILEY Address: home [address] [place] [address] Name: DELMIS ADAMS Address: [place] [address] Name: RUPERT PALMER Address: [address] [place] [address] Name: DESIRAE CHAUDHARY Address: [address] [place] [address]
--- OUTSIDE RECORDS SUMMARY | 2024-07-15 15:36 | XMS_ITS | Continuity of Care Document ---
Author Organization [facility] Address [address] [place] [address]- Care Team Providers Care Lab Analyst Name Role Phone Santi James MD Primary Care Physician [facility] Date[facility]): 02/09/24 - 03/10/24 [facility] [address] [place], [place] [address] Allergies, Adverse Reactions, Alerts Substance Reaction Severity Status morphine Active Percocet Active doxycycline Hives Active nitrofurantoin Pruritus Rash Active predniSONE Anaphylaxis Active benzonatate Speech impediment Active Lopid Muscle cramps Myalgia and myositis unspecified Active Biaxin Upset stomach Active Levaquin Hives Active Demerol Active ezetimibe Breast painful Active Lipitor Myalgia unspecified Muscle cramps Active Topamax Skin rash Active tiZANidine Anaphylaxis Active Immunizations Given and [...] (Td) 11/03/99 Given 1Admin Note: done @ [facility],form received 2Result Comment: [07/31/2015] [facility] 3Admin Note: done @ [facility] 4Admin Note: vis sheet given. 5Admin Note: work 6Admin Note: given at [facility] in [place] 7Admin Note: per pt, done at [facility] 8Admin Note: done @ [facility], form received 9Admin Note: given at work 10Admin Note: given in the fall 11Result Comment: [id number] 12Result Comment: [08/31/2018] [id number] 13Result Comment: [08/24/2015] given w/out incident 14Admin [...] tablet, 3 Refills, Maintenance, 01/17/23 12:44:00 EDT, [facility] STORE 57157, 156.15, cm, 11/29/22 14:40:00 EST, Height, 79.5, [...] 90 Unknown,1 Refills, Maintenance, 06/10/23 8:18:00 EDT, [facility] STORE 10298, 90, USE 1 SPRAY IN BOTH NOSTRILS [...] discharge., # 2 tablet, 0 Refills, Maintenance, 03/10/24 12:10:00 EDT, Tablet, [id number], Partial fill upon patient request if the prescription is for a schedule... Start Date: 03/10/24 Status: Ordered EpiPen 2-Tramaine 0.3 mg injectable kit = 0.3 mg, Intramuscular, Once, PRN Anaphylactic Reaction, may repeat if necessary, # 1 each, 11 Refills, Soft Stop, 03/14/23 15:31:00 EDT, [facility]/pharmacy #[id number], Partial fill upon patient request if theprescription is for a schedule II opioid drug., 155... Start Date: 03/14/23 Status: Ordered fexofenadine 180 mg oral tablet 1 tablet = 180 mg, By Mouth, Daily, PRN for allergy symptoms, # 90 tablet, 4 Refills, Maintenance, 09/02/23 11:04:00 EDT, Tablet, [facility]/pharmacy #[id number], Partial fill upon patient request if the prescription is for a schedule II opioid drug., 155, cm, ... Start Date: 09/02/23 Stop Date: 11/25/24 Status: Ordered ibuprofen 800 mg oral tablet 1, tablet, By Mouth, 3 times a day, X30 DAYS, STOP ASPIRIN WHILE TAKING THIS., # 90 tablet, Refills1, Maintenance, 12/04/23 7:25:00 EST, Route to Pharmacy Electronically, [facility] STORE 99230, 155, cm, 11/18/23 16:29:00 EST, Height, 83.7, kg, 11/06/23 9:0... Start Date: 12/04/23 Status: Ordered levothyroxine 0.05 mg oral tablet 1 tablet, By Mouth, Daily, # 90 tablet, 3 Refills, Maintenance, 08/12/23 15:31:00 EDT, [facility]/pharmacy#[id number], 155, cm, 08/12/23 15:09:00 EDT, Height, 83.9, kg, 03/13/23 4:46:00 EDT, Dry Weight Start Date: 08/12/23 Stop Date: 08/06/24 Status: Ordered montelukast 10 mg oral tablet 1, tablet, By Mouth, Daily, # 90 tablet, Refills 3, Maintenance, 11/23/23 8:40:00 EST, Route to Pharmacy Electronically, [facility] STORE 67919, 155, cm, 11/18/23 16:29:00 EST, Height, 83.7, [...] Stop Date: 08/25/23 Status: Ordered Vitamin D3 1000 intl units [...] Personnel Name: Justa HARRIS, Geni Orlando Position: [facility] Associate Professional Member Role: Primary Care Nurse Address: Address: [address] [place] [address]- Name: Talia Matute RN Position: [facility] RN Member Role: Primary Care Nurse Name: Darshan Benz RN Position: [facility] Outreach Member Role: Primary Care Nurse Name: Santi James MD Position: [facility] Physician - Primary Care Member Role: PCP Address: Address: [address] [place] [address] Adult [facility] [place] [address]- Care Team Related Persons Name: PITER BAILEY Address: home [address] [place] [address] Name: DELMIS ADAMS Address: home [place], [place] Name: RUPERT PALMER Address: home [address] [place], [place] Name: DESIRAE CHAUDHARY Address: home [address] [place], [place]
--- OUTSIDE RECORDS SUMMARY | 2024-07-15 15:36 | XMS_ITS | Continuity of Care Document ---
Author Organization [facility] Address [address] [place] [address]- Care Team Providers Care Registered Nurse Cardiovascular Icu Name Role Phone Jacob DORAN, Santi Primary Care Physician [facility]): 10[facility]22 - 11/28/22 [facility] [address] [place], [place] [address] Allergies, Adverse Reactions, Alerts Substance Reaction [...] (Td) 11/03/99 Given 1Admin Note: done @ [facility],form received 2Result Comment: [07/31/2015] [facility] 3Admin Note: done @ [facility] 4Admin Note: vis sheet given. 5Admin Note: work 6Admin Note: given at [facility] in [place] 7Admin Note: per pt, done at [facility] 8Admin Note: done @ [facility], form received 9Admin Note: given at work 10Admin Note: given in the fall 11Result Comment: [id number] 12Result Comment: [08/31/2018] [id number] 13Result Comment: [08/24/2015] given w/out incident 14Admin Note: per pt 15Admin Note: [facility] Medications acetaminophen 650 mg oral tablet, extended release 1 tablet, By Mouth, Every 8 hours, PRN NEEDED FOR PAIN, # 90 tablet, 3 Refills, [id number], cm, 04/04/22 7:36:00 EDT, Height, 78.9, kg, 04/04/22 7:36:00 EDT, Dry Weight Start Date: 04/08/22 Status: Ordered Albuterol (Eqv-ProAir HFA) 90 mcg/inh inhalation aerosol 2 puffs, Inhalation, Every 6 hours, PRN Wheezing/Shortness of Breath, # 6.7 Gm, 11 Refills, Maintenance, 08/29/22 9:07:00 EDT, [id number], Partial fill upon patient request if the prescription is for a schedule II opioid drug., 2 puffs Inhalat... Start Date: 08/29/22 Status: Ordered aspirin 81 mg oral tablet 1 tablet = 81 mg, By Mouth, Daily, # 30 tablet, 10 Refills, Maintenance, 12/09/19 10:24:00 EST, Tablet Start Date: 12/09/19 Stop Date: 11/03/20 Status: Ordered azelastine 137 mcg/inh (0.1%) nasal spray 1 sprays, Nares, Both, 2 times a day, PRN Other Allergies, # 1 each, 10 Refills, Maintenance, 11/25/22 15:18:00 EST, [place], [id number], replaces 0.15% dose, 1 sprays Nares, Both 2 times a day,x30 days,PRN:Other Allergies, 156.15, cm, 08/29... Start Date: 11/25/22 Stop Date: 10/21/23 Status: Ordered azelastine nasal 0.15% spray 1 sprays, Nares, Both, 2 times a day, PRN for allergy symptoms, # 1 each, 6 Refills, Maintenance, 11/25/22 13:48:00 EST, [place], [id number], Partial fill upon patient request if the prescription is for a schedule II opioid drug., 1 sprays Nares... Start Date: 11/25/22 Stop Date: 06/23/23 Status: Ordered cetirizine 10 mg oral tablet 1 tablet, By Mouth, Daily, # 90 tablet, 3 Refills, [facility], 156, cm, 03/18/22 8:26:00 EDT, Height Start [...] 16 Gm, 11 Refills, 08/29/22 9:07:00 EDT, [facility]/pharmacy #[id number], USE 1 SPRAY IN EACH NOSTRL 2 TIMES A DAYX 5 DAYS, AND THEN DAILY THEREAFTER, 156.15, cm, 10... Start Date: 08/29/22 Status: Ordered levothyroxine 0.05 mg oral tablet See Instructions, TAKE 1 TABLET BY MOUTH EVERY DAY, # 90 tablet, 1 Refills, 09/01/22 19:54:00 EDT, [facility]/pharmacy #[id number], 156.15, cm, 08/29/22 8:44:00 EDT, Height, 79.5, kg, 06/06/22 11:17:00 EDT, Dry Weight Start Date: 09/01/22 Status: Ordered loratadine 10 mg oral tablet 10 mg, 1, tablet, By Mouth, Daily, # 30 tablet, Refills 11, Tot. Refills 11, Maintenance, 08/29/22 9:07:00 EDT, Route to Pharmacy Electronically, [facility]/pharmacy #[id number], Partial fill upon patient requestif the prescription is for a schedule II opioid lauro... Start Date: 08/29/22 Status: Ordered meloxicam 15 mg oral tablet 1 tablet = 15 mg, By Mouth, Daily, # 30 tablet, 2 Refills, Maintenance, 10/08/22 9:48:00 EST, Tablet, [facility]/pharmacy #[id number], replaces diclofenac, 156.15, cm, 08/29/22 8:44:00 [...] j45.40, # 1 each, 11 Refills, Maintenance, 11/28/2314:07:00 EST, [facility], Partial fill upon patient request if the prescription isfor a schedule II opioid drug., 156.15, cm, ... Start Date: 11/28/22 Status: Ordered omeprazole 20 mg oral enteric coated capsule 1 capsule = 20 mg, By Mouth, Daily, # 30 capsule, 6 Refills, Maintenance, 02/07/22 11:49:00 EDT, [facility], Partial fill upon patient request if the prescription is for a schedule II opioid drug. Start Date: 02/07/22 Stop Date: 03/09/22 Status: Ordered Singulair 10 mg oral tablet 10 mg, 1, tablet, By Mouth, Daily, # 30 tablet, Refills 11, Tot. Refills 11, Maintenance, 08/29/22 9:07:00 EDT, Route to Pharmacy Electronically, [facility]/pharmacy #[id number], Partial fill upon patient requestif [...] 10:03:00 EST, Aerosol, Route to Pharmacy Electronically, [id number]... Start Date: 10/17/22 Status: Ordered Vitamin D3 [...] Personnel Name: Justa HARRIS, Geni Orlando Position: [facility] Associate Professional Member Role: Primary Care Nurse Address: Address: [address] [place], [place] [address] Name: Santi James MD Position: [facility] Primary Care Physician Member Role: PCP Address: Address: [address] [place] [address] Adult & Pediatric [place], [place] [address] Care Team Related Persons Name: PITER BAILEY Address: home [address] [place] [address] Name: DELMIS ADAMS Address: home [place], [place] Name: RUPERT PALMER Address: home [address] [place], [place] Name: DESIRAE CHAUDHARY Address: home [address] [place], [place]
--- OUTSIDE RECORDS SUMMARY | 2024-07-15 15:36 | XMS_ITS | Continuity of Care Document ---
Author Organization [facility] Address [address] [place] [address]- Care Team Providers Care Marketing Communications Leader Name Role Phone Jacob DORAN, Santi Primary Care Physician [facility]): 12[facility]11[facility]23 - 01/10/24 [facility] [address] [place], [place] [address] Allergies, Adverse Reactions, Alerts Substance Reaction Severity Status nitrofurantoin Pruritus Rash Active morphine Active Percocet Active doxycycline Hives Active predniSONE Anaphylaxis Active benzonatate Speech impediment Active Lopid Muscle cramps Myalgia and myositis unspecified Active Biaxin Upset stomach Active Topamax Skin rash Active tiZANidine Anaphylaxis Active Lipitor Myalgia unspecified Muscle cramps Active [...] (Td) 11/03/99 Given 1Admin Note: done @ [facility],form received 2Result Comment: [07/31/2015] [facility] 3Admin Note: [facility] 4Admin Note: vis sheet given. 5Admin Note: work 6Admin Note: given at [facility] in [place] 7Admin Note: per pt, done at [facility] 8Admin Note: done @ [facility], form received 9Admin Note: given at work 10Admin Note: given in the fall 11Result Comment: [id number] 12Result Comment: [08/31/2018] [id number] 13Result Comment: [08/24/2015] given w/out incident 14Admin [...] tablet, 3 Refills, Maintenance, 01/17/23 12:44:00 EDT, [facility] 74730, 156.15, cm, 11/29/22 14:40:00 EST, Height, 79.5, [...] 90 Unknown,1 Refills, Maintenance, 06/10/23 8:18:00 EDT, [facility] STORE 75276, 90, USE 1 SPRAY IN BOTH NOSTRILS 2 TIMES A DAY NEEDED FOR ALLERGIES, 155, cm, 2... Start Date: 06/10/23 Status: Ordered CPAP Machine See Instructions, # 1 each, Maintenance, AutoCPAP 9-12 cm H20, use Daily when sleeping, 01/16/23 16:48:00 EDT, Supply Start Date: 01/16/23 Status: Ordered Diflucan 150 mg oral tablet 1 tablet = 150 mg, By Mouth, Once, # 1 tablet, 0 Refills, Soft Stop, 11/06/23 9:46:00 EST, Tablet, [facility]/pharmacy #[id number], Partial fill upon patient request if the prescription is for a schedule II opioid drug., 155, cm, 11/06/23 9:08:00 EST, Height, 83.7... Start Date: 11/06/23 Status: Ordered EpiPen 2-Tramaine 0.3 mg injectable kit = 0.3 mg, Intramuscular, Once, PRN Anaphylactic Reaction, may repeat if necessary, # 1 each, 11 Refills, Soft Stop, 03/14/23 15:31:00 EDT, [facility]/pharmacy #[id number], Partial fill upon patient request if theprescription is for a schedule II opioid drug., 155... Start Date: 03/14/23 Status: Ordered fexofenadine 180 mg oral tablet 1 tablet = 180 mg, By Mouth, Daily, PRN for allergy symptoms, # 90 tablet, 4 Refills, Maintenance, 09/02/23 11:04:00 EDT, Tablet, [facility]/pharmacy #[id number], Partial fill upon patient request if the prescription is for a schedule II opioid drug., 155, cm, ... Start Date: 09/02/23 Stop Date: 11/25/24 Status: Ordered fluconazole 150 mg oral tablet 1 tablet = 150 mg, By Mouth, Once, repeat dose if still having symptoms in 72 hours, # 2 tablet, 0 Refills, Soft Stop, 12/22/23 13:26:00 EST, Tablet, [facility]/pharmacy #[id number], Partial fill upon patient request if the prescription is for a schedule II opioid... Start Date: 12/22/23 Status: Ordered ibuprofen 800 mg oral tablet 1, tablet, By Mouth, 3 times a day, X30 DAYS, STOP ASPIRIN WHILE TAKING THIS., # 90 tablet, Refills1, Maintenance, 12/04/23 7:25:00 EST, Route to Pharmacy Electronically, [facility] STORE 18439, 155, cm, 11/18/23 16:29:00 EST, Height, 83.7, kg, 11/06/23 9:0... Start Date: 12/04/23 Status: Ordered levothyroxine 0.05 mg oral tablet 1 tablet, By Mouth, Daily, # 90 tablet, 3 Refills, Maintenance, 08/12/23 15:31:00 EDT, [facility]/pharmacy#2476, 155, cm, 08/12/23 15:09:00 EDT, Height, 83.9, kg, 03/13/23 4:46:00 EDT, Dry Weight Start Date: 08/12/23 Stop Date: 08/06/24 Status: Ordered montelukast 10 mg oral tablet 1, tablet, By Mouth, Daily, # 90 tablet, Refills 3, Maintenance, 11/23/23 8:40:00 EST, Route to Pharmacy Electronically, [facility] STORE 17299, 155, cm, 11/18/23 16:29:00 EST, Height, 83.7, [...] 4 Refills, Maintenance, 03/28/23 13:04:00 EDT, Aerosol, [facility]/pharmacy #2476, replaced Proventil that is not available, 155, cm, 03/13/23 11:02:00 EDT, Height, 83.9, kg, 03/13/23 4:46:00 EDT... Start Date: 03/28/23 Stop Date: 08/25/23 Status: Ordered Zetia 10 mg oral tablet 1 tablet = 10 mg, By Mouth, Daily, # 30 tablet, 1 Refills, Maintenance, 10/28/23 10:28:00 EST, Tablet, [facility]/pharmacy #[id number], Partial fill upon patient request if the prescription is for a schedule II opioid drug., 155, cm, 10/28/23 10:07:00 EST, Height,... Start Date: 10/28/23 Stop Date: 12/27/23 Status: Ordered Problem List Condition Confirmation Course [...] Personnel Name: Justa HARRIS, Geni Orlando Position: [facility] Associate Professional Member Role: Primary Care Nurse Address: Address: [address] [place] [id number]- Name: Talia Matute RN Position: [facility] RN Member Role: Primary Care Nurse Name: Santi James MD Position: [facility] Physician - Primary Care Member Role: PCP Address: Address: [address] [place] [address] Adult & [place] [address]- Care Team Related Persons Name: PITER ABILEY Address: home [address] [place] [address] Name: DELMIS ADAMS Address: home [place], [place] Name: RUPERT PALMER Address: home [address] [place], [place] Name: DESIRAE CHAUDHARY Address: home [address] [place], [place]
--- OUTSIDE RECORDS SUMMARY | 2024-07-15 15:36 | XMS_ITS | Continuity of Care Document ---
Author Organization [facility] Address [address] [place] [address]- Care Team Providers Care Senior Portfolio Analyst Name Role Phone Santi James MD Primary Care Physician [facility] 03[facility]12[facility]23 - 04/11/23 [facility] [address] [place], [place] [address] Allergies, Adverse Reactions, Alerts Substance Reaction Severity Status doxycycline Hives Active nitrofurantoin Pruritus Rash Active morphine Active predniSONE Anaphylaxis Active benzonatate Speech impediment Active Lopid Muscle cramps Myalgia and myositis unspecified Active Percocet Active Biaxin Upset stomach Active Lipitor Myalgia unspecified Muscle cramps Active Topamax Skin rash Active Levaquin Hives Active Demerol Active tiZANidine [...] (Td) 11/03/99 Given 1Admin Note: done @ [facility],form received 2Result Comment: [07/31/2015] [facility] 3Admin Note: done @ [facility] 4Admin Note: vis sheet given. 5Admin Note: work 6Admin Note: given at [facility] in [place] 7Admin Note: per pt, done at [facility] 8Admin Note: done @ [facility], form received 9Admin Note: given at work 10Admin Note: given in the fall 11Result Comment: [id number] 12Result Comment: [08/31/2018] [id number] 13Result Comment: [08/24/2015] given w/out incident 14Admin Note: per pt 15Admin Note: [facility] Medications acetaminophen 650 mg oral tablet, extended release 1 tablet, By Mouth, Every 8 hours, PRN NEEDED FOR PAIN, # 90 tablet, 3 Refills, Maintenance, 01/17/23 12:44:00 EDT, [facility], 156.15, cm, 11/29/22 14:40:00 EST, Height, 79.5, [...] each, 10 Refills, Maintenance, 11/25/22 15:18:00 EST, [place], [facility]/pharmacy #2476, replaces 0.15% dose, 1 sprays Nares, Both 2 times a day,x30 days,PRN:Other Allergies, 156.15, cm, 08/29... Start Date: 11/25/22 Stop Date: 10/21/23 Status: Ordered CPAP Machine See Instructions, # 1 each, Maintenance, AutoCPAP 9-12 cm H20, use Daily when sleeping, 01/16/23 16:48:00 EDT, Supply Start Date: 01/16/23 Status: Ordered EpiPen 2-Tramaine 0.3 mg injectable kit = 0.3 mg, Intramuscular, Once, PRN Anaphylactic Reaction, may repeat if necessary, # 1 each, 11 Refills, Soft Stop, 03/14/23 15:31:00 EDT, [facility]/pharmacy #[id number], Partial fill upon patient request if theprescription is for a schedule II opioid drug., 155... Start Date: 03/14/23 Status: Ordered ergocalciferol 32607 iu oral capsule 50,000 International_Units, 1, capsule, By Mouth, Every week, # 12 capsule, Refills 0, Tot. Refills0, Maintenance, 04/10/23 9:13:00 EDT, Route to Pharmacy Electronically, [facility]/pharmacy #[id number], Partialfill upon patient request if the prescription is fo... Start Date: 04/10/23 Stop Date: 07/03/23 Status: Ordered fexofenadine 180 mg oral tablet 1 tablet = 180 mg, By Mouth, Daily, # 30 tablet, 0 Refills, Maintenance, 03/14/23 15:41:00 EDT, Tablet, Partial fill upon patient request if the prescription is for a schedule II opioid drug. Start Date: 03/14/23 Status: Ordered levothyroxine 0.05 mg oral tablet 1 tablet, By Mouth, Daily, # 90 tablet, 1 Refills, Maintenance, 03/01/23 14:21:00 EDT, [facility] STORE 11026, 156.15, cm, 11/29/22 14:40:00 EST, Height, 79.5, kg, 06/06/22 11:17:00 EDT, Dry Weight Start Date: 03/01/23 Status: Ordered montelukast 10 mg oral tablet [...] 4 Refills, Maintenance, 03/28/23 13:04:00 EDT, Aerosol, [facility]/pharmacy #0738, replaced Proventil that is not available, 155, cm, 03/13/23 11:02:00 EDT, Height, 83.9, kg, 03/13/23 4:46:00 EDT... Start Date: 03/28/23 Stop Date: 08/25/23 Status: Ordered Problem List Condition Confirmation Course Effective Dates Status Health Status Informant Anxiety disorder Confirmed Active Back pain Confirmed Active COVID-19 1 Confirmed 06/06/22 Active Carpal [...] History of pulmonary embolism Confirmed 02/14/19 Active Hyperglycemia Confirmed 04/03/22 Active Hypercholesterolemia Confirmed [...] Personnel Name: Justa HARRIS, Geni Orlando Position: [facility] Associate Professional Member Role: Primary Care Nurse Address: Address: [address] [facility] [place] [address]- Name: Talia Matute RN Position: [facility] RN Member Role: Primary Care Nurse Name: Santi James MD Position: [facility] Physician - Primary Care Member Role: PCP Address: Address: [address] [place] [address] Adult & [place] [address]- Care Team Related Persons Name: PITER BAILEY Address: home [address] [place] [address] Name: DELMIS ADAMS Address: home [place], [place] Name: RUPERT PALMER Address: [address] [place], [place] Name: DESIRAE CHAUDHARY Address: home [address] [place], [place]
--- OUTSIDE RECORDS SUMMARY | 2024-07-15 15:36 | XMS_ITS | Continuity of Care Document ---
Author Organization [facility] Address [address] [place] [address]- Care Team Providers Care Sanitary Landfill Operator Name Role Phone Jacob DORAN, Santi Primary Care Physician [facility] Date[facility]): 10/20/23 - 11/19/23 [facility] [address] [place], [place] [address] Allergies, Adverse Reactions, Alerts Substance [...] (Td) 11/03/99 Given 1Admin Note: done @ [facility],form received 2Result Comment: [07/31/2015] [facility] 3Admin Note: [facility] @ [facility] 4Admin Note: vis sheet given. 5Admin Note: work 6Admin Note: given at [facility] in [place] 7Admin Note: per pt, done at [facility] 8Admin Note: done @ [facility], form received 9Admin Note: given at work 10Admin Note: given in the fall 11Result Comment: [id number] 12Result Comment: [08/31/2018] [id number] 13Result Comment: [08/24/2015] given w/out incident 14Admin [...] tablet, 3 Refills, Maintenance, 01/17/23 12:44:00 EDT, [facility] STORE 06241, 156.15, cm, 11/29/22 14:40:00 EST, Height, 79.5, kg, 06/06/22 11:17:00 EDT, Dry Weight Start Date: 01/17/23 Status: Ordered aspirin 81 mg oral tablet 1 tablet = 81 mg, By Mouth, Daily, # 30 tablet, 10 Refills, Maintenance, 12/09/19 10:24:00 EST, Tablet Start Date: 12/09/19 Stop Date: 11/03/20 Status: Ordered Augmentin 875 mg-125 mg oral tablet 1 tablet, By Mouth, 2 times a day, for 10 days, # 20 tablet, 0 Refills, Acute 11/28/23 16:51:00 EST, 11/18/23 16:51:00 EST, [facility]/pharmacy #8127, Partial fill upon patient request if the prescription is for a schedule II opioid drug., 155, cm, 11/18/23... Start Date: 11/18/23 Stop Date: 11/28/23 Status: Ordered azelastine 137 mcg/inh (0.1%) nasal spray See Instructions, USE 1 SPRAY IN BOTH NOSTRILS 2 TIMES A DAY NEEDED FOR ALLERGIES, # 90 Unknown,1 Refills, Maintenance, 06/10/23 8:18:00 EDT, [facility]ORE [facility]2938, 90, USE 1 SPRAY IN BOTH NOSTRILS [...] Refills, Soft Stop, 11/06/23 9:46:00 EST, Tablet, [facility]/pharmacy #2476, Partial fill upon patient request if the prescription is for a schedule II opioid drug., 155, cm, 11/06/23 9:08:00 EST, Height, 83.7... Start Date: 11/06/23 Status: Ordered EpiPen 2-Tramaine 0.3 mg injectable kit = 0.3 mg, Intramuscular, Once, PRN Anaphylactic Reaction, may repeat if necessary, # 1 each, 11 Refills, Soft Stop, 03/14/23 15:31:00 EDT, [facility]/pharmacy #2476, Partial fill upon patient request if theprescription is for a schedule II opioid drug., 155... Start Date: 03/14/23 Status: Ordered fexofenadine 180 mg oral tablet 1 tablet = 180 mg, By Mouth, Daily, PRN for allergy symptoms, # 90 tablet, 4 Refills, Maintenance, 09/02/23 11:04:00 EDT, Tablet, [facility]/pharmacy #2476, Partial fill upon patient request if the prescription is for a schedule II opioid drug., 155, cm, 10... Start Date: 09/02/23 Stop Date: 11/25/24 Status: Ordered levothyroxine 0.05 mg oral tablet 1 tablet, By Mouth, Daily, # 90 tablet, 3 Refills, Maintenance, 08/12/23 15:31:00 EDT, [facility], 155, cm, 08/12/23 15:09:00 EDT, Height, 83.9, [...] 1 Refills, Maintenance, 10/28/23 10:28:00 EST, Tablet, [facility], Partial fill upon [...] team information Care Team Personnel Name: Justa PRINCIPAL SYSTEM SOFTWARE ENGINEER, Geni Orlando Position: [facility] Associate Professional Member Role: Primary Care Nurse Address: Address: [address] [facility] [place] [address]- Name: Talia Matute RN Position: [facility] RN Member Role: Primary Care Nurse Name: Santi James MD Position: [facility] Physician - Primary Care Member Role: PCP Address: Address: [address] [place] [address] Adult & [place] [address]- Care Team Related Persons Name: PITER BAILEY Address: home [address] [place] [address] Name: DELMIS ADAMS Address: [place] [address] Name: RUPERT PALMER Address: home [address] [place], [place] Name: DESIRAE CHAUDHARY Address: home [address] [place], [place]
--- OUTSIDE RECORDS SUMMARY | 2024-07-15 15:36 | XMS_ITS | Continuity of Care Document ---
Author Organization [facility] Address [address] [place] [address]- Care Team Providers Care Property Insurance Agent Name Role Phone Jacob DORAN, Santi Primary Care Physician [facility] Date(s): 03/24/24 - 04/23/24 [facility] [address] [place], [place] [address] Allergies, Adverse Reactions, Alerts Substance Reaction Severity Status doxycycline Hives Active nitrofurantoin Pruritus Rash Active morphine Active predniSONE Anaphylaxis Active benzonatate Speech impediment Active Lopid Muscle cramps Myalgia and myositis unspecified Active Percocet Active Biaxin Upset stomach Active Levaquin Hives [...] (Td) 11/03/99 Given 1Admin Note: done @ [facility],form received 2Result Comment: [07/31/2015] [facility] 3Admin Note: done @ [facility] 4Admin Note: vis sheet given. 5Admin Note: work 6Admin Note: given at [facility] in [place] 7Admin Note: per pt, done at [facility] 8Admin Note: done @ [facility], form received 9Admin Note: given at work 10Admin Note: given in the fall 11Result Comment: [id number] 12Result Comment: [08/31/2018] [id number] 13Result Comment: [08/24/2015] given w/out incident 14Admin [...] tablet, 3 Refills, Maintenance, 01/17/23 12:44:00 EDT, [facility] 46026, 156.15, cm, 11/29/22 14:40:00 EST, Height, 79.5, [...] 90 Unknown,1 Refills, Maintenance, 06/10/23 8:18:00 EDT, [facility] 40197, 90, USE 1 SPRAY IN BOTH NOSTRILS [...] 0 Refills, Maintenance, 03/10/24 12:10:00 EDT, Tablet, [facility]/pharmacy #5689, Partial fill upon patient request if the prescription is for a schedule... Start Date: 03/10/24 Status: Ordered EpiPen 2-Tramaine 0.3 mg injectable kit = 0.3 mg, Intramuscular, Once, PRN Anaphylactic Reaction, may repeat if necessary, # 1 each, 11 Refills, Soft Stop, 03/14/23 15:31:00 EDT, [facility]/pharmacy #2476, Partial fill upon patient request if theprescription is for a schedule II opioid drug., 155... Start Date: 03/14/23 Status: Ordered fexofenadine 180 mg oral tablet 1 tablet = 180 mg, By Mouth, Daily, PRN for allergy symptoms, # 90 tablet, 4 Refills, Maintenance, 09/02/23 11:04:00 EDT, Tablet, [facility]/pharmacy #2476, Partial fill upon patient request if the prescription is for a schedule II opioid drug., 155, cm, ... Start Date: 09/02/23 Stop Date: 11/25/24 Status: Ordered ibuprofen 800 mg oral tablet 1, tablet, By Mouth, 3 times a day, X30 DAYS, STOP ASPIRIN WHILE TAKING THIS., # 90 tablet, Refills1, Maintenance, 12/04/23 7:25:00 EST, Route to Pharmacy Electronically, [facility] STORE [address]4544, 155, cm, 11/18/23 16:29:00 EST, Height, 83.7, kg, 11/06/23 9:0... Start Date: 12/04/23 Status: Ordered ibuprofen 800 mg oral tablet 1, tablet, By Mouth, 3 times a day, PRN, X30 DAYS, STOP ASPIRIN WHILE TAKING THIS. Take with food and/or milk, # 90 tablet, Refills 2, Tot. Refills 2, Maintenance, Pain , Moderate, 04/05/24 15:20:00 EDT, Route to Pharmacy Electronically, [facility]/pharmacy... Start Date: 04/05/24 Stop Date: 07/04/24 Status: Ordered levothyroxine 0.05 mg oral tablet 1 tablet, By Mouth, Daily, # 90 tablet, 3 Refills, Maintenance, 08/12/23 15:31:00 EDT, [facility]/pharmacy#2476, 155, cm, 08/12/23 15:09:00 EDT, Height, 83.9, kg, 03/13/23 4:46:00 EDT, Dry Weight Start Date: 08/12/23 Stop Date: 08/06/24 Status: Ordered montelukast 10 mg oral tablet 1, tablet, By Mouth, Daily, # 90 tablet, Refills 3, Maintenance, 11/23/23 8:40:00 EST, Route to Pharmacy Electronically, [facility] STORE 40175, 155, cm, 11/18/23 16:29:00 EST, Height, 83.7, [...] 4 Refills, Maintenance, 03/28/23 13:04:00 EDT, Aerosol, [facility]/pharmacy #2476, replaced Proventil that is not available, 155, cm, 03/13/23 11:02:00 EDT, Height, 83.9, kg, 03/13/23 4:46:00 EDT... Start Date: 03/28/23 Stop Date: 08/25/23 Status: Ordered Vitamin D3 1000 intl units oral tablet 1 tablet = 25 mcg, By Mouth, Daily, # 90 tablet, 2 Refills, Maintenance, 01/27/24 14:50:00 EDT, Tablet, [facility]/pharmacy #2476, may use OTC formulation, 155, cm, [...] Care Nurse Name: Talia Matute RN Position: [facility] RN Member Role: Primary Care Nurse Name: Darshan Benz RN Position: [facility] Outreach Member Role: Primary Care Nurse Name: Santi James MD Position: [facility] Physician - Primary Care Member Role: PCP Address: Address: [address] [place] [address] Adult & [place] [address]- Care Team Related Persons Name: PITER BAILEY Address: home [address] [place] [address] Name: DELMIS ADAMS Address: [place] [address] Name: RUPERT PALMER Address: [address] [place] [address] Name: DESIRAE CHAUDHARY Address: home [address] [place] [address]
--- OUTSIDE RECORDS SUMMARY | 2024-07-15 15:36 | XMS_ITS | Continuity of Care Document ---
Author Organization [facility] Address [address] [place] [address]- Care Team Providers Care Cinder Crew Worker Name Role Phone Jacob DORAN, Santi Primary Care Physician Encounter [facility] Date(s): 02/27/22 - 03/29/22 [facility] [address] [place] [address]- Attending Physician: Ken Galarza Admitting Physician: AdmKen hwang Referring Physician: AdmtrKen Allergies, Adverse Reactions, Alerts Substance Reaction Severity [...] 11/03/99 Given 1Admin Note: done @ [facility],form received 2Result Comment: [07/31/2015] [facility] 3Admin Note: done @ [facility] 4Admin Note: vis sheet given. 5Admin Note: work 6Admin Note: given at [facility] in [place] 7Admin Note: per pt, done at [facility] 8Admin Note: done @ [facility], form received 9Admin Note: given at work 10Admin Note: given in the fall 11Result Comment: [id number] 12Result Comment: [08/31/2018] [id number] 13Result Comment: [08/24/2015] given w/out incident 14Admin Note: per pt 15Admin Note: [facility] Medications Albuterol (Eqv-ProAir HFA) 90 mcg/inh inhalation aerosol 2 puffs, Inhalation, Every 6 hours, PRN Wheezing/Shortness of Breath, # 6.7 Gm, 11 Refills, Maintenance, 02/26/22 9:18:00 EDT, [facility]/pharmacy #2476, Partial fill upon patient request [...] each, 4 Refills, Maintenance, 02/07/22 12:08:00 EDT, [place], [facility]/pharmacy #2476, Partial fill upon patient request if the prescription is for a schedule II opioid drug., 1 sprays Nares... Start Date: 02/07/22 Stop Date: 07/07/22 Status: Ordered cetirizine 10 mg oral tablet 1 tablet, By Mouth, Daily, # 90 tablet, 3 Refills, [facility] STORE 48455, 156, cm, 03/18/22 8:26:00 EDT, Height Start [...] EDT, Supply Start Date: 04/13/21 Status: Ordered Flonase 50 mcg/inh nasal spray 1 sprays, Nares, Both, 2 times a day, in each nostril X 5 Days, and then daily thereafter, # 16 Gm,6 Refills, Maintenance, 11/06/21 10:21:00 EST, [place], [facility]/pharmacy #2476, Partial fill upon patientrequest if the prescription is for a schedule II op... Start Date: 11/06/21 Status: Ordered levothyroxine 0.05 mg oral tablet See Instructions, TAKE 1 TABLET BY MOUTH EVERY DAY, # 90 tablet, 1 Refills, [facility] STORE 14639, 156, cm, 02/07/22 11:31:00 EDT, Height Start Date: 02/19/22 Status: Ordered loratadine 10 mg oral tablet 10 mg, 1, tablet, By Mouth, Daily, # 30 tablet, Refills 11, Tot. Refills 11, Maintenance, 02/26/22 9:18:00 EDT, Route to Pharmacy Electronically, [facility]/pharmacy #2476, Partial fill upon patient requestif the [...] 02/26/22 9:18:00 EDT, Route to Pharmacy Electronically, [facility]/pharmacy #5816, Partial fill upon patient requestif the prescription is for a schedule II opioid lauro... Start Date: 02/26/22 Status: Ordered Symbicort 160mcg/4.5mcg Inhaler 2, puffs, Inhalation, 2 times a day, in the morning and the evening use with spacer chamber rinse mouth and throat after use, # 54 Gm, Refills 12, Tot. Refills 12, Maintenance, 02/26/22 9:18:00 EDT, Aerosol, Route to Pharmacy Electronically, [id number]... Start Date: 02/26/22 Status: Ordered Vitamin D3 1000 intl units oral tablet 1 tablet = 25 mcg, By Mouth, Daily, 0 Refills, Maintenance, 02/07/22 12:14:00 EDT, Partial fill upon patient request if the prescription is for a schedule II opioid drug. Start Date: 02/07/22 Status: Ordered Problem List Condition Effective Dates [...]
--- OUTSIDE RECORDS SUMMARY | 2024-07-15 15:36 | XMS_ITS | Continuity of Care Document ---
Author Organization [facility] Address [address] [place] [address]- Care Team Providers Care Sales Outfitter Name Role Phone Santi James MD Primary Care Physician [facility] Date(s): 09/02/23 - 10/02/23 [facility] [address] [place], [place] [address] Allergies, Adverse Reactions, Alerts Substance Reaction Severity Status doxycycline Hives Active morphine Active Percocet Active Topamax Skin rash Active Levaquin Hives Active Demerol Active nitrofurantoin Pruritus Rash Active predniSONE Anaphylaxis Active benzonatate Speech impediment Active Lopid Muscle cramps Myalgia and myositis unspecified Active Biaxin Upset stomach Active Lipitor Myalgia unspecified Muscle cramps Active tiZANidine Anaphylaxis Active Immunizations Given and [...] Given 1Admin Note: done @ [facility],form received 2Result Comment: [07/31/2015] [facility] 3Admin Note: done @ [facility] 4Admin Note: vis sheet given. 5Admin Note: work 6Admin Note: given at [facility] 7Admin Note: per pt, done at [facility] 8Admin Note: done @ [facility], form received 9Admin Note: given at work 10Admin Note: given in the fall 11Result Comment: [id number] 12Result Comment: [08/31/2018] [id number] 13Result Comment: [08/24/2015] given w/out incident 14Admin [...] tablet, 3 Refills, Maintenance, 01/17/23 12:44:00 EDT, [facility] STORE 77752, 156.15, cm, 11/29/22 14:40:00 EST, Height, 79.5, [...] 90 Unknown,1 Refills, Maintenance, 06/10/23 8:18:00 EDT, [facility] STORE 87284, 90, USE 1 SPRAY IN BOTH NOSTRILS [...] 11 Refills, Soft Stop, 03/14/23 15:31:00 EDT, [facility]/pharmacy #9992, Partial fill upon patient request if theprescription is for a schedule II opioid drug., 155... Start Date: 03/14/23 Status: Ordered ergocalciferol 69561 iu oral capsule 50,000 International_Units, 1, capsule, By Mouth, Every week, # 12 capsule, Refills 0, Tot. Refills0, Maintenance, 06/12/23 7:24:00 EDT, [facility] Partial[facility] upon patient request if the prescription is fo... Start Date: 06/12/23 Stop Date: 09/04/23 Status: Ordered fexofenadine 180 mg oral tablet 1 tablet = 180 mg, By Mouth, Daily, PRN for allergy symptoms, # 90 tablet, 4 Refills, Maintenance, 09/02/23 11:04:00 EDT, Tablet, [facility] Partial fill upon patient request if the prescription is for a schedule II opioid drug., 155, cm, .. Start Date: 09/02/23 Stop Date: 11/25/24 Status: Ordered levothyroxine 0.05 mg oral tablet 1 tablet, By Mouth, Daily, # 90 tablet, 3 Refills, Maintenance, 08/12/23 15:31:00 EDT, [facility]/pharmacy#2476, 155, cm, 08/12/23 15:09:00 EDT, Height, [...] Date: 04/21/23 Stop Date: 08/11/23 Status: Ordered Zithromax Z-Tramaine 250 mg oral tablet 1 pack/packet, By Mouth, Once, # 6 tablet, 0 Refills, Soft Stop, 09/30/23 11:01:00 EST, Tablet, [facility], pt has taken t his medication in the past without issues, 155, cm, 09/30/23 10:06:00 EST, Height, 83.9, kg, 03/13/23 4:46:00 EDT,... Start Date: 09/30/23 Status: Ordered Problem List Condition Confirmation Course [...] Personnel Name: Justa HARRIS, Geni Orlando Position: [facility] Associate Professional Member Role: Primary Care Nurse Address: Address: [address] [place] [address]- Name: Talia Matute RN Position: [facility] RN Member Role: Primary Care Nurse Name: Santi James MD Position: [facility] Physician - Primary Care Member Role: PCP Address: Address: [address] [place] [address] Adult & [place] [address]- Care Team Related Persons Name: PITER BAILEY Address: home [address] [place] [address] Name: DELMIS ADAMS Address: [address] [place], [place] Name: RUPERT PALMER Address: home [address] [facility] [place] [address] Name: DESIRAE CHAUDHARY Address: home [address] [place], [place]
--- OUTSIDE RECORDS SUMMARY | 2024-07-15 15:36 | XMS_ITS | Continuity of Care Document ---
Author Organization [facility] Address [address] [place] [address]- Care Team Providers Care Head Up Operator Helper Name Role Phone Santi James MD Primary Care Physician [facility] Date[facility]s): 10/31/21 - 11/30/21 [facility] [address] [place], [place] [address] Allergies, Adverse Reactions, Alerts Substance Reaction [...] (Td) 11/03/99 Given 1Admin Note: done @ [facility],form received 2Result Comment: [07/31/2015] [facility] 3Admin Note: done @ [facility] 4Admin Note: vis sheet given. 5Admin Note: work 6Admin Note: given at [facility] in [place] 7Admin Note: per pt, done at [facility] 8Admin Note: done @ [facility], form received 9Admin Note: given at work 10Admin Note: given in the fall 11Result Comment: [id number] 12Result Comment: [08/31/2018] [id number] 13Result Comment: [08/24/2015] given w/out incident 14Admin [...] 3 Refills, Maintenance, 03/13/21 8:26:00 EDT, Tablet, [facility] #11905, 156, cm, 03/13/21 8:16:00 EDT, Height, 78.8, [...] 16 Gm,6 Refills, Maintenance, 11/06/21 10:21:00 EST, [place], [facility], Partial fill upon patientrequest if the prescription is for a schedule II op... Start Date: 11/06/21 Status: Ordered FLUoxetine 10 mg oral capsule 1, capsule, By Mouth, Daily, # 30 capsule, Refills 5, Route to Pharmacy Electronically, [facility] 33312, 156, cm, 09/04/21 8:41:00 EDT, Height, 78.8, kg, 12/20/19 10:35:00 EST, Dry Weight Start Date: 10/22/21 Status: Ordered ipratropium nasal 21 mcg/inh spray 2 sprays, Nares, Both, 2 times a day, # 30 mL, 0 Refills, Maintenance, 07/25/20 16:52:00 EDT, [place], [facility]/pharmacy #2476, 2 sprays Nares, Both 2 times a day, 156, cm, 03/13/20 10:31:00 EDT, Height, 78.8, kg, 12/20/19 10:35:00 EST, Dry Weight Start Date: 07/25/20 Status: Ordered levothyroxine 0.05 mg oral tablet 1 tablet = 50 mcg, By Mouth, Daily, # 90 tablet, 3 Refills, Maintenance, 03/13/21 8:24:00 EDT, Tablet, [facility] #68556, 156, cm, 03/13/21 8:16:00 EDT, Height, 78.8, kg, 12/20/19 10:35:00 EST, Dry Weight Start Date: 03/13/21 Stop Date: 03/08/22 Status: Ordered montelukast 10 mg oral tablet See Instructions, TAKE 1 TABLET BY MOUTH EVERY DAY, # 90 tablet, Refills 1, Instructions Replace Required Details, Route to Pharmacy Electronically, [facility] 29770, 156, cm, 09/04/21 8:41:00 EDT, Height, 78.8, kg, 12/20/19 10:35:00 EST, Dry Weight Start Date: 11/21/21 Status: Ordered multivitamin Multiple Vitamins oral tablet, [...] each, Refills 4, Route to Pharmacy Electronically, [id number], [facility], 156, cm, 09/04/21 8:41:00 EDT, Height, 78.8, kg, 12/20/19 10:35:00 EST, Dry Weight Start Date: 10/08/21 Status: Ordered Symbicort 160mcg/4.5mcg Inhaler 2, puffs, Inhalation, 2 times a day, in the morning and the evening use with spacer chamber rinse mouth and throat after use, # 54 Gm, Refills 12, Tot. Refills 12, Maintenance, 09/04/21 9:38:00 EDT, Aerosol, Route to Pharmacy Electronically, [id number]... Start Date: 09/04/21 Status: Ordered Zithromax Z-Tramaine 250 mg oral tablet See Instructions, as directed on package labeling, # 1 pack/packet, 0 Refills, Maintenance, 10/11/21 17:06:00 EST, [facility]/pharmacy #2476, Partial fill upon patient request [...]
--- OUTSIDE RECORDS SUMMARY | 2024-07-15 15:36 | XMS_ITS | Continuity of Care Document ---
Author Organization [facility] Address [address] [place] [address]- Care Team Providers Care Hot Stone Setter Name Role Phone Jacob DORAN, Santi Primary Care Physician [facility] Date[facility]): 04/13/21 - 05/13/21 [facility] [address] [place], [place] [address] Allergies, Adverse [...] (Td) 11/03/99 Given 1Admin Note: done @ [facility], form received 2Admin Note: done @ [facility],form received 3Result Comment: [07/31/2015] [facility] 4Admin Note: done @ [facility] 5Admin Note: vis sheet given. 6Admin Note: work 7Admin Note: given at [facility] in [place] 8Admin Note: per pt, done at [facility] 9Admin Note: given at work 10Admin Note: given in the fall 11Result Comment: [id number] 12Result Comment: [08/31/2018] [id number] 13Result Comment: [08/24/2015] given w/out incident 14Admin Note: per pt 15Admin Note: [facility] Medications acetaminophen 650 mg oral tablet, extended release 1 tablet = 650 mg, By Mouth, Every 8 hours, PRN Pain , Moderate, for 30 days, # 90 tablet, 7 Refills, Acute 10/24/21 12:47:00 EST, 02/26/21 12:47:00 EDT, ER Tablet, [facility] #71636, 156, cm, 03/13/20 10:31:00 EDT, Height, 78.8, kg, ... Start Date: 02/26/21 Stop Date: 10/24/21 Status: Ordered albuterol 0.083% inhalation solution 3 mL = 2.5 mg, Inhalation, Every 6 hours, PRN for wheezing, Dx: asthma, # 100 each, 4 Refills, Maintenance, 12/01/19 12:54:00 EST, Solution, [facility]/pharmacy #2476, 156, cm, 12/01/19 12:40:00 EST, Height, 79.6, kg, 03/10/19 14:10:00 EDT, Dry Weight Start Date: 12/01/19 Stop Date: 04/29/20 Status: Ordered albuterol CFC free 90 mcg/inh inhalation aerosol 2, puffs, Inhalation, Every 4 hours, PRN, # 1 each, Refills 3, Tot. Refills 3, Maintenance, 03/13/21 8:25:00 EDT, Aerosol, Route to Pharmacy Electronically, [id number], [facility] #49819, 156, cm, 03/13/21 8:16:00 E... Start Date: [...] 3 Refills, Maintenance, 03/13/21 8:26:00 EDT, Tablet, [facility] #85431, 156, cm, 03/13/21 8:16:00 EDT, Height, 78.8, [...] EDT, Supply Start Date: 04/13/21 Status: Ordered ipratropium nasal 21 mcg/inh spray 2 sprays, Nares, Both, 2 times a day, # 30 mL, 0 Refills, Maintenance, 07/25/20 16:52:00 EDT, [place], [facility]/pharmacy #6346, 2 sprays Nares, Both 2 times a day, 156, cm, 03/13/20 10:31:00 EDT, Height, 78.8, kg, 12/20/19 10:35:00 EST, Dry Weight Start Date: 07/25/20 Status: Ordered levothyroxine 0.05 mg oral tablet 1 tablet = 50 mcg, By Mouth, Daily, # 90 tablet, 3 Refills, Maintenance, 03/13/21 8:24:00 EDT, Tablet, [facility] #98550, 156, cm, 03/13/21 8:16:00 EDT, Height, 78.8, kg, 12/20/19 10:35:00 EST, Dry Weight Start Date: 03/13/21 Stop Date: 03/08/22 Status: Ordered montelukast 10 mg oral tablet 1, tablet, By Mouth, Daily, # 90 tablet, Refills 2, Tot. Refills 0, Maintenance, 10/05/20 15:45:00 EST, Route to Pharmacy Electronically, [facility]257, 156, cm, 03/13/20 10:31:00 EDT, Height, 78.8, [...]
--- OUTSIDE RECORDS SUMMARY | 2024-07-15 15:36 | XMS_ITS | Continuity of Care Document ---
Author Organization [facility] Address [address] [place] [address]- Care Team Providers Care Optical Lab Technician Name Role Phone Jacob DORAN, Santi Primary Care Physician [facility]): [facility]20 - 12/17/20 [facility] [address] [place], [place] [address] Allergies, Adverse Reactions, Alerts Substance Reaction Severity Status morphine Active Percocet Active doxycycline Hives Active nitrofurantoin Pruritus Rash Active benzonatate Speech impediment Active Zithromax gi upset Active Lopid Muscle cramps Myalgia and myositis unspecified Active Biaxin Upset stomach Active Augmentin 1 hives Active Lipitor Myalgia unspecified Muscle cramps Active Levaquin Hives Active Bactrim DS Stomach cramps Active 1may take cephalexin Immunizations Given and Recorded Vaccine Date Status Refusal Reason Influenza Virus Vaccine (oldterm) 08/03/19 Recorde d Influenza Virus Vaccine (oldterm) 1 07/11/09 Given Influenza Virus Vaccine (oldterm) 2 12/07/07 Given zoster vaccine, inactivated 06/19/19 Recorded pneumococcal 13-valent vaccine 06/19/19 Recorded pneumococcal 13-valent vaccine 3 06/24/16 Given tetanus/diphtheria/pertussis, acel(Tdap) 4 01/25/19 Given pneumococcal 23-valent vaccine 5 08/31/18 Given pneumococcal 23-valent vaccine 6 08/24/15 Given influenza virus vaccine, inactivated 07/23/17 Nitin rded influenza virus vaccine, inactivated 7 06/24/16 Gi cristel influenza virus vaccine, inactivated 8 07/31/15 Re corded influenza virus vaccine, inactivated 9 8/29/14 Gi cristel influenza virus vaccine, inactivated 10 07/02/12 G iven influenza virus vaccine, inactivated 11 08/03/11 G iven influenza virus vaccine, inactivated 12 07/08/10 G iven influenza virus vaccine, inactivated 13 08/22/08 G iven Human Papillomavirus Vaccine 07/05/11 Given influ virus vac, H1N1, inactive(oldterm) 14 12/05/09 Given tetanus-diphtheria toxoids (Td) 15 05/12/07 Given tetanus-diphtheria toxoids (Td) 11/03/99 Given 1Admin Note: given at work 2Admin Note: given in the fall 3Admin Note: done @ [facility], form received 4Result Comment: [id number] 5Result Comment: [08/31/2018] [id number] 6Result Comment: [08/24/2015] given w/out incident 7Admin Note: done @ [facility],form received 8Result Comment: [07/31/2015] [facility] 9Admin Note: done @ [facility] 10Admin Note: vis sheet given. 11Admin Note: work 12Admin Note: given at [facility] 13Admin Note: per pt, done at [facility] 14Admin Note: per pt 15Admin Note: [facility] Medications albuterol 0.083% inhalation solution 3 mL = 2.5 mg, Inhalation, Every 6 hours, PRN for wheezing, Dx: asthma, # 100 each, 4 Refills, Maintenance, 12/01/19 12:54:00 EST, Solution, [facility]/pharmacy #[id number], 156, cm, 12/01/19 12:40:00 EST, Height, 79.6, kg, 03/10/19 14:10:00 EDT, Dry Weight Start Date: 12/01/19 Stop Date: 04/29/20 Status: Ordered albuterol CFC free 90 mcg/inh inhalation aerosol 2, puffs, Inhalation, Every 4 hours, PRN, # 9 Gm, Refills 0, Tot. Refills 0, Maintenance, 10/28/17 14:12:34, Aerosol, Route to Pharmacy Electronically, [id number], [facility]/pharmacy #[id number], Compound Start Date: 10/28/17 Status: Ordered aspirin 81 mg oral tablet [...] mg, By Mouth, Daily, # 30 tablet, 5 Refills, Maintenance, 10/10/20 12:10:00 EST, Tablet, [facility]/pharmacy #[id number], 156, cm, 03/13/20 10:31:00 EDT, Height, 78.8, kg, 12/20/19 10:35:00 EST, DryWeight Start Date: 10/10/20 Stop Date: 04/08/21 Status: Ordered CPAP at 8mmHg CPAP at 8mmHg, See Instructions, # 1 each, Refills 0, Tot. Refills 0, Maintenance, DX: sleep apnea length of need 99 months, 01/20/18 15:26:44, Compound Start Date: 01/20/18 Status: Ordered FLUoxetine 20 mg oral capsule 1, capsule, By Mouth, Daily, # 90 capsule, Refills 2, Tot. Refills 0, Maintenance, 10/05/20 15:45:00 EST, Route to Pharmacy Electronically, [facility] STORE 61860, 156, cm, 03/13/20 10:31:00 EDT, Height, 78.8, kg, 12/20/19 10:35:00 EST, Dry Weight Start Date: 10/05/20 Status: Ordered ipratropium nasal 21 mcg/inh spray 2 sprays, Nares, Both, 2 times a day, # 30 mL, 0 Refills, Maintenance, 07/25/20 16:52:00 EDT, [place], [facility]/pharmacy #[id number], 2 sprays Nares, Both 2 times a day, 156, cm, 03/13/20 10:31:00 EDT, Height, 78.8, kg, 12/20/19 10:35:00 EST, Dry Weight Start Date: 07/25/20 Status: Ordered levothyroxine 0.05 mg oral tablet 1 tablet = 50 mcg, By Mouth, Daily, # 90 tablet, 3 Refills, Maintenance, 03/13/20 11:08:00 EDT, Tablet, [facility]/pharmacy #[id number], 156, cm, 03/13/20 10:31:00 EDT, Height, 78.8, kg, 12/20/19 10:35:00 EST, Dry Weight Start Date: 03/13/20 Stop Date: 03/08/21 Status: Ordered montelukast 10 mg oral tablet 1, tablet, By Mouth, Daily, # 90 tablet, Refills 2, Tot. Refills 0, Maintenance, 10/05/20 15:45:00 EST, Route to Pharmacy Electronically, [facility] STORE 06027, 156, cm, 03/13/20 10:31:00 EDT, Height, 78.8, kg, 12/20/19 10:35:00 EST, Dry Weight Start Date: 10/05/20 Status: Ordered multivitamin Multiple Vitamins oral tablet, chewable 1 tablet, By Mouth, Daily, # 30 tablet, 0 Refills, Maintenance, 12/09/19 10:30:00 EST Start Date: 12/09/19 Stop Date: 01/08/20 Status: Ordered Omeprazole By Mouth, Daily, 0 Refills, Maintenance, 08/23/19 8:18:58 EDT Start Date: 08/23/19 Status: Ordered predniSONE 10 mg oral tablet See Instructions, 4 tablets by mouth today, then 3 tab/day x 3 days, then 2 tabs/day x 4 day, 1 tab/day x 6d, # 37 tablet, 0 Refills, Soft Stop, 09/14/20 8:46:00 EST, Tablet, [facility]/pharmacy #[id number], 156,cm, 03/13/20 10:31:00 EDT, Height, 78.8, kg, ... Start Date: 09/14/20 Status: Ordered Qvar Redihaler 40 mcg/inh inhalation aerosol 1 puffs, Inhalation, 2 times a day, rinse mouth and throat after use, # 1 each, 0 Refills, Maintenance, 09/14/20 8:47:00 EST, [facility]/pharmacy #[id number], 1 puffs Inhalation 2 times a [...]
--- OUTSIDE RECORDS SUMMARY | 2024-07-15 15:36 | XMS_ITS | Continuity of Care Document ---
Author Organization [facility] Address [address] [place] [address]- Care Team Providers Care Hospital Clinic Assistant Name Role Phone Santi James MD Primary Care Physician [facility] Date[facility]s): 02/10/24 - 02/17/24 [facility] [address] [place], [place] [address] Attending Physician: Santi James MD Allergies, Adverse Reactions, Alerts Substance Reaction Severity Status doxycycline Hives Active nitrofurantoin Pruritus Rash Active morphine Active predniSONE Anaphylaxis Active benzonatate Speech impediment Active Lopid Muscle cramps Myalgia and myositis unspecified Active Percocet Active Biaxin Upset stomach Active Lipitor Myalgia unspecified Muscle cramps Active Topamax Skin rash Active Levaquin Hives Active Demerol Active ezetimibe Breast painful Active tiZANidine Anaphylaxis Active Immunizations Given and [...] influenza virus vaccine, inactivated 5 08/03/11 Gi crsitel influenza virus vaccine, inactivated 6 07/08/10 Gi [...] 5Admin Note: work 6Admin Note: given at [facility] [place] 7Admin Note: per pt, done at [facility] 8Admin Note: done @ [facility], form received 9Admin Note: given at work 10Admin Note: given in the fall 11Result Comment: [id number] 12Result Comment: [08/31/2018] [id number] 13Result Comment: [08/24/2015] given w/out incident 14Admin [...] Refills, Maintenance, 01/17/23 12:44:00 EDT, [facility], 156.15, cm, 11/29/22 14:40:00 EST, Height, 79.5, [...] 90 Unknown,1 Refills, Maintenance, 06/10/23 8:18:00 EDT, [facility] [id number], 90, USE 1 SPRAY IN BOTH NOSTRILS [...] 11 Refills, Soft Stop, 03/14/23 15:31:00 EDT, [facility], Partial fill upon patient request if theprescription is for a schedule II opioid drug., 155... Start Date: 03/14/23 Status: Ordered fexofenadine 180 mg oral tablet 1 tablet = 180 mg, By Mouth, Daily, PRN for allergy symptoms, # 90 tablet, 4 Refills, Maintenance, 09/02/23 11:04:00 EDT, Tablet, [facility]/pharmacy #2476, Partial fill upon patient request if the prescription is for a schedule II opioid drug., 155, cm, ... Start Date: 09/02/23 Stop Date: 11/25/24 Status: Ordered fluconazole 150 mg oral tablet 1 tablet = 150 mg, By Mouth, Once, repeat dose if still having symptoms in 72 hours, # 2 tablet, 0 Refills, Soft Stop, 12/22/23 13:26:00 EST, Tablet, [facility]/pharmacy #2476, Partial fill upon patient request if the prescription is for a schedule II opioid... Start Date: 12/22/23 Status: Ordered ibuprofen 800 mg oral tablet 1, tablet, By Mouth, 3 times a day, X30 DAYS, STOP ASPIRIN WHILE TAKING THIS., # 90 tablet, Refills1, Maintenance, 12/04/23 7:25:00 EST, Route to Pharmacy Electronically, [facility] 69905, 155, cm, 11/18/23 16:29:00 EST, Height, 83.7, kg, 11/06/23 9:0... Start Date: 12/04/23 Status: Ordered levothyroxine 0.05 mg oral tablet 1 tablet, By Mouth, Daily, # 90 tablet, 3 Refills, Maintenance, 08/12/23 15:31:00 EDT, [facility]/pharmacy#2476, 155, cm, 08/12/23 15:09:00 EDT, Height, 83.9, kg, 03/13/23 4:46:00 EDT, Dry Weight Start Date: 08/12/23 Stop Date: 08/06/24 Status: Ordered montelukast 10 mg oral tablet 1, tablet, By Mouth, Daily, # 90 tablet, Refills 3, Maintenance, 11/23/23 8:40:00 EST, Route to Pharmacy Electronically, [facility] 50241, 155, cm, 11/18/23 16:29:00 EST, Height, 83.7, [...] Care team information Care Team Personnel Name: Geni Marr NP Position: [facility] Associate Professional Member Role: Primary Care Nurse Address: Address: [address] [place] [id number]- Name: Talia Matute RN Position: [facility] RN Member Role: Primary Care Nurse Name: Darshan Benz RN Position: [facility] Outreach Member Role: Primary Care Nurse Name: Santi James MD Position: [facility] Physician - Primary Care Member Role: PCP Address: Address: [address] [place] [address] Adult & [place] [address]- Care Team Related Persons Name: PITER BAILEY Address: home [address] [place] [address] Name: DELMIS ADAMS Address: home [address] [place], [place] Name: RUPERT PALMER Address: home [address] [place], [place] Name: DESIRAE CHAUDHARY Address: home [address] [place], [place]
--- OUTSIDE RECORDS SUMMARY | 2024-07-15 15:36 | XMS_ITS | Continuity of Care Document ---
Author Organization [facility] Address [address] [place] [address]- Care Team Providers Care Livestock Feeder Name Role Phone Jacob DORAN, Santi Primary Care Physician [facility]): 02[facility]03[facility]23 - 03/05/23 [facility] [address] [place], [place] [address] Allergies, Adverse Reactions, Alerts Substance [...] influenza virus vaccine, inactivated 3 07/01/14 Gi crisetl influenza virus vaccine, inactivated 4 07/02/12 Gi [...] (Td) 11/03/99 Given 1Admin Note: [facility] 2Result Comment: [07/31/2015] [facility] 3Admin Note: done @ [facility] 4Admin Note: vis sheet given. 5Admin Note: work 6Admin Note: given at [facility] 7Admin Note: per pt, done at [facility] 8Admin Note: done @ [facility], form received 9Admin Note: given at work 10Admin Note: given in the fall 11Result Comment: [id number] 12Result Comment: [08/31/2018] [id number] 13Result Comment: [08/24/2015] given w/out incident 14Admin Note: per pt 15Admin Note: [facility] Medications acetaminophen 650 mg oral tablet, extended release 1 tablet, By Mouth, Every 8 hours, PRN NEEDED FOR PAIN, # 90 tablet, 3 Refills, Maintenance, 01/17/23 12:44:00 EDT, [facility] STORE 66583, 156.15, cm, 11/29/22 14:40:00 EST, Height, 79.5, kg, 06/06/22 11:17:00 EDT, Dry Weight Start Date: 01/17/23 Status: Ordered Albuterol (Eqv-ProAir HFA) 90 mcg/inh inhalation aerosol 2 puffs, Inhalation, Every 6 hours, PRN Wheezing/Shortness of Breath, # 6.7 Gm, 11 Refills, Maintenance, 08/29/22 9:07:00 EDT, [facility]/pharmacy #2476, Partial fill upon patient [...] each, 10 Refills, Maintenance, 11/25/22 15:18:00 EST, [place], [facility]/pharmacy #2476, replaces 0.15% dose, 1 sprays Nares, Both 2 times a day,x30 days,PRN:Other Allergies, 156.15, cm, 08/29... Start Date: 11/25/22 Stop Date: 10/21/23 Status: Ordered CPAP Machine See Instructions, # 1 each, Maintenance, AutoCPAP 9-12 cm H20, use Daily when sleeping, 01/16/23 16:48:00 EDT, Supply Start Date: 01/16/23 Status: Ordered CPAP at 8mmHg CPAP at 8mmHg, See Instructions, # 1 each, Refills 0, Tot. Refills 0, Maintenance, DX: sleep apnea length of need 99 months, 01/20/18 15:26:44, Compound Start Date: 01/20/18 Status: Ordered fluticasone 50 mcg/inh nasal spray See Instructions, USE 1 SPRAY IN EACH NOSTRL 2 TIMES A DAY X 5 DAYS, AND THEN DAILY THEREAFTER, # 16 Gm, 11 Refills, 08/29/22 9:07:00 EDT, [facility]/pharmacy #2476, USE 1 SPRAY IN EACH NOSTRL 2 TIMES A DAYX 5 DAYS, AND THEN DAILY THEREAFTER, 156.15, cm, 10... Start Date: 08/29/22 Status: Ordered levothyroxine 0.05 mg oral tablet 1 tablet, By Mouth, Daily, # 90 tablet, 1 Refills, Maintenance, 03/01/23 14:21:00 EDT, [facility] STORE 85062, 156.15, cm, 11/29/22 14:40:00 EST, Height, 79.5, kg, 06/06/22 11:17:00 EDT, Dry Weight Start Date: 03/01/23 Status: Ordered loratadine 10 mg oral tablet 10 mg, 1, tablet, By Mouth, Daily, # 30 tablet, Refills 11, Tot. Refills 11, Maintenance, 08/29/22 9:07:00 EDT, Route to Pharmacy Electronically, [facility]/pharmacy #2476, Partial fill upon patient requestif the prescription is for a schedule II opioid lauro... Start Date: 08/29/22 Status: Ordered multivitamin Multiple Vitamins oral tablet, chewable 1 tablet, By Mouth, Daily, # 30 tablet, 0 Refills, Maintenance, 12/09/19 10:30:00 EST Start Date: 12/09/19 Stop Date: 01/08/20 Status: Ordered Nucala Prefilled Autoinjector 100 mg/mL subcutaneous solution = 100 mg, Subcutaneous Infusion, Every 28 days, [id number], # 1 each, 11 Refills, Maintenance, 11/28/2314:07:00 EST, [facility], Partial fill upon patient request [...] 08/29/22 9:07:00 EDT, Route to Pharmacy Electronically, [facility]/pharmacy #[id number], Partial fill upon patient requestif the prescription is for a schedule II opioid lauro... Start Date: 08/29/22 Status: Ordered Symbicort 160mcg/4.5mcg Inhaler 2, puffs, Inhalation, 2 times a day, in the morning and the evening use with spacer chamber rinse mouth and throat after use, # 1 each, Refills 5, Tot. Refills 5, Maintenance, 10/17/22 10:03:00 EST, Aerosol, Route to Pharmacy Electronically, [id number]... Start Date: 10/17/22 Status: Ordered Vitamin D3 1000 intl units oral tablet 1 tablet = 25 mcg, By Mouth, Daily, 0 Refills, Maintenance, 02/07/22 12:14:00 EDT, Partial fill upon patient request if the prescription is for a schedule II opioid drug. Start Date: 02/07/22 Status: Ordered Problem List Condition Confirmation Course Effective Dates Status Health Status Informant Anxiety disorder Confirmed Active COVID-19 1 Confirmed 06/06/22 Active [...] Personnel Name: Justa [place], Geni [place] Position: [facility] Associate Professional Member Role: Primary Care Nurse Address: Address: [address] [place] [address]- [place] Name: Santi James MD Position: [facility] Primary Care Physician Member Role: PCP Address: Address: [address] [facility] [place] [address]- Care Team Related Persons Name: PITER BAILEY Address: home [address] [place] [address] Name: DELMIS ADAMS Address: home [address] [place], [place] Name: RUPERT PALMER Address: home [address] [place], [place] Name: DESIRAE CHAUDHARY Address: home [address] [place], [place]
--- OUTSIDE RECORDS SUMMARY | 2024-07-15 15:36 | XMS_ITS | Continuity of Care Document ---
Author Organization [facility] Address [address] [place] [address]- Care Team Providers Care Head Usher Name Role Phone Santi James MD Primary Care Physician [facility]): 07/13/21 - 08/12/21 [facility] [address] [place], [place] [address] Allergies, Adverse Reactions, Alerts Substance Reaction [...] Status Refusal Reason SARS-CoV-2 (COVID-19) mRNA-1273 vaccine 06/30/21 R ecorded [...] 11/03/99 Given 1Admin Note: done @ [facility], form received 2Admin Note: done @ [facility],form received 3Result Comment: [07/31/2015] [facility] 4Admin Note: done @ [facility] 5Admin Note: vis sheet given. 6Admin Note: work 7Admin Note: given at [facility] [place] 8Admin Note: per pt, done at [facility] 9Admin Note: given at work 10Admin Note: given in the fall 11Result Comment: [id number] 12Result Comment: [08/31/2018] [id number] 13Result Comment: [08/24/2015] given w/out incident 14Admin Note: per pt 15Admin Note: [facility] Medications acetaminophen 650 mg oral tablet, extended release 1 tablet = 650 mg, By Mouth, Every 8 hours, PRN Pain , Moderate, for 30 days, # 90 tablet, 7 Refills, Acute 10/24/21 12:47:00 EST, 02/26/21 12:47:00 EDT, ER Tablet, [facility] #[id number], 156, cm, 03/13/20 10:31:00 EDT, Height, 78.8, kg, ... Start Date: 02/26/21 Stop Date: 10/24/21 Status: Ordered albuterol 0.083% inhalation solution 3 mL = 2.5 mg, Inhalation, Every 6 hours, PRN for wheezing, Dx: asthma, # 100 each, 4 Refills, Maintenance, 12/01/19 12:54:00 EST, Solution, [facility]/pharmacy #[id number], 156, cm, 12/01/19 12:40:00 EST, Height, 79.6, kg, 03/10/19 14:10:00 EDT, Dry Weight Start Date: 12/01/19 Stop Date: 04/29/20 Status: Ordered albuterol CFC free 90 mcg/inh inhalation aerosol 2, puffs, Inhalation, Every 4 hours, PRN, # 1 each, Refills 3, Tot. Refills 3, Maintenance, 03/13/21 8:25:00 EDT, Aerosol, Route to Pharmacy Electronically, [id number], [facility] #[id number], 156, cm, 03/13/21 8:16:00 E... Start Date: [...] 3 Refills, Maintenance, 03/13/21 8:26:00 EDT, Tablet, [facility] STORE #[id number], 156, cm, 03/13/21 8:16:00 EDT, Height, 78.8, [...] Days, and then daily thereafter, # 16 Gm,0 Refills, Maintenance, 08/02/21 11:22:00 EDT, [place], [facility] #[id number], Partial fill upon patient request if the prescription is for a sched... Start Date: 08/02/21 Status: Ordered ipratropium nasal 21 mcg/inh spray 2 sprays, Nares, Both, 2 times a day, # 30 mL, 0 Refills, Maintenance, 07/25/20 16:52:00 EDT, [place], [facility]/pharmacy #4366, 2 sprays Nares, Both 2 times a day, 156, cm, 03/13/20 10:31:00 EDT, Height, 78.8, kg, 12/20/19 10:35:00 EST, Dry Weight Start Date: 07/25/20 Status: Ordered levothyroxine 0.05 mg oral tablet 1 tablet = 50 mcg, By Mouth, Daily, # 90 tablet, 3 Refills, Maintenance, 03/13/21 8:24:00 EDT, Tablet, [facility] #[id number], 156, cm, 03/13/21 8:16:00 EDT, Height, 78.8, kg, 12/20/19 10:35:00 EST, Dry Weight Start Date: 03/13/21 Stop Date: 03/08/22 Status: Ordered montelukast 10 mg oral tablet See Instructions, TAKE 1 TABLET BY MOUTH DAILY, # 90 tablet, Refills 1, Instructions Replace Required Details, Route to Pharmacy Electronically, [facility] #[id number], 156, cm, 03/13/21 8:35:00EDT, Height, 78.8, kg, [...] each, 0 Refills, Maintenance, 09/14/20 8:47:00 EST, [facility]/pharmacy #8526, 1 puffs Inhalation 2 times a day,x30 [...] Active Obesity(Confirmed) Active GARCIA (obstructive sleep apnea)(Confirmed) 5/14/10 Active Recurrent sinusitis(Confirmed) Active Repair of hernia of abdomina l wall(Confirmed) Active Social History Social History Type Response Smoking Status Never smoker entered on: 10/12/14 Sex
--- OUTSIDE RECORDS SUMMARY | 2024-07-15 15:36 | XMS_ITS | Continuity of Care Document ---
Author Organization [facility] Address [address] [place] [address]- Care Team Providers Care Technology Resource Teacher Name Role Phone Jacob DORAN, Santi Primary Care Physician [facility] Date[facility]s): 11/06/23 - 12/06/23 [facility] [address] [place], [place] [address] Allergies, Adverse Reactions, Alerts Substance Reaction Severity Status morphine Active Percocet Active doxycycline Hives Active nitrofurantoin Pruritus Rash Active predniSONE Anaphylaxis Active benzonatate Speech impediment Active Lopid Muscle cramps Myalgia and myositis unspecified Active Biaxin Upset stomach Active Topamax Skin rash Active Levaquin Hives Active tiZANidine Anaphylaxis Active Lipitor Myalgia unspecified [...] (Td) 11/03/99 Given 1Admin Note: done @ [facility],form received 2Result Comment: [07/31/2015] [facility] 3Admin Note: [facility] 4Admin Note: vis sheet given. 5Admin Note: work 6Admin Note: given at [facility] [place] 7Admin Note: per pt, done at [facility] 8Admin Note: done @ [facility] [place], form received 9Admin Note: given at work 10Admin Note: given in the fall 11Result Comment: [id number] 12Result Comment: [08/31/2018] [id number] 13Result Comment: [08/24/2015] given w/out incident 14Admin [...] tablet, 3 Refills, Maintenance, 01/17/23 12:44:00 EDT, [facility], 156.15, cm, 11/29/22 14:40:00 EST, Height, 79.5, [...] 90 Unknown,1 Refills, Maintenance, 06/10/23 8:18:00 EDT, [facility], 90, USE 1 SPRAY IN BOTH NOSTRILS [...] Refills, Soft Stop, 11/06/23 9:46:00 EST, Tablet, [facility]/pharmacy #[id number], Partial fill upon patient request if the prescription is for a schedule II opioid drug., 155, cm, 11/06/23 9:08:00 EST, Height, 83.7... Start Date: 11/06/23 Status: Ordered EpiPen 2-Tramaine 0.3 mg injectable kit = 0.3 mg, Intramuscular, Once, PRN Anaphylactic Reaction, may repeat if necessary, # 1 each, 11 Refills, Soft Stop, 03/14/23 15:31:00 EDT, [facility]/pharmacy #2476, Partial fill upon patient request if theprescription is for a schedule II opioid drug., 155... Start Date: 03/14/23 Status: Ordered fexofenadine 180 mg oral tablet 1 tablet = 180 mg, By Mouth, Daily, PRN for allergy symptoms, # 90 tablet, 4 Refills, Maintenance, 09/02/23 11:04:00 EDT, Tablet, [facility]/pharmacy #2476, Partial fill upon patient request if the prescription is for a schedule II opioid drug., 155, cm, ... Start Date: 09/02/23 Stop Date: 11/25/24 Status: Ordered fluconazole 150 mg oral tablet 1 tablet = 150 mg, By Mouth, Once, repeat dose if still having symptoms in 72 hours, # 2 tablet, 0 Refills, Soft Stop, 11/28/23 12:38:00 EST, Tablet, [facility]/pharmacy #[id number], Partial fill upon patient request if the prescription is for a schedule II opioid... Start Date: 11/28/23 Status: Ordered ibuprofen 800 mg oral tablet 1, tablet, By Mouth, 3 times a day, X30 DAYS, STOP ASPIRIN WHILE TAKING THIS., # 90 tablet, Refills1, Maintenance, 12/04/23 7:25:00 EST, Route to Pharmacy Electronically, [facility] STORE 13473, 155, cm, 11/18/23 16:29:00 EST, Height, 83.7, kg, 11/06/23 9:0... Start Date: 12/04/23 Status: Ordered levothyroxine 0.05 mg oral tablet 1 tablet, By Mouth, Daily, # 90 tablet, 3 Refills, Maintenance, 08/12/23 15:31:00 EDT, [facility]/pharmacy#2476, 155, cm, 08/12/23 15:09:00 EDT, Height, 83.9, kg, 03/13/23 4:46:00 EDT, Dry Weight Start Date: 08/12/23 Stop Date: 08/06/24 Status: Ordered montelukast 10 mg oral tablet 1, tablet, By Mouth, Daily, # 90 tablet, Refills 3, Maintenance, 11/23/23 8:40:00 EST, Route to Pharmacy Electronically, [facility] STORE 15624, 155, cm, 11/18/23 16:29:00 EST, Height, 83.7, [...] 4 Refills, Maintenance, 03/28/23 13:04:00 EDT, Aerosol, [facility]/pharmacy #2476, replaced Proventil that is not available, 155, cm, 03/13/23 11:02:00 EDT, Height, 83.9, kg, 03/13/23 4:46:00 EDT... Start Date: 03/28/23 Stop Date: 08/25/23 Status: Ordered Zetia 10 mg oral tablet 1 tablet = 10 mg, By Mouth, Daily, # 30 tablet, 1 Refills, Maintenance, 10/28/23 10:28:00 EST, Tablet, [facility]/pharmacy #2476, Partial fill upon patient request [...] Member Role: Primary Care Nurse Address: Address: [address] [place] [address]- Name: Talia Matute RN Position: [facility] RN Member Role: Primary Care Nurse Name: Santi James MD Position: [facility] Physician - Primary Care Member Role: PCP Address: Address: [address] [place] [address] Adult [facility] [place] [address]- Care Team Related Persons Name: PITER BAILEY Address: home [address] [place] [address] Name: DELMIS ADAMS Address: home [place], [place] Name: RUPERT PALMER Address: home [address] [place], [place] Name: DESIRAE CHAUDHARY Address: home [address] [place], [place]
--- OUTSIDE RECORDS SUMMARY | 2024-07-15 15:37 | XMS_ITS | Continuity of Care Document ---
Author Organization [facility] Address [address] [place] [address]- Care Team Providers Care Glass Vial Bending Conveyor Feeder Name Role Phone Santi James MD Primary Care Physician Encounter [facility] Date(s): 03/13/21 - 03/20/21 [facility] [address] [place], [place] [address] Attending Physician: Santi James MD Allergies, Adverse Reactions, Alerts Substance Reaction Severity Status doxycycline Hives Active nitrofurantoin Pruritus Rash Active morphine Active Zithromax gi upset Active Percocet Active Biaxin Upset stomach Active Augmentin 1 hives Active Bactrim DS Stomach cramps Active Levaquin Hives Active benzonatate Speech impediment Active Lopid Muscle cramps Myalgia and myositis unspecified Active Lipitor Myalgia unspecified Muscle cramps Active 1may take cephalexin Immunizations Given [...] 1Admin Note: done @ [facility], form received 2Admin Note: done @ [facility],form received 3Result Comment: [07/31/2015] [facility] 4Admin Note: done @ [facility] 5Admin Note: vis sheet given. 6Admin Note: work 7Admin Note: given at [facility] [place] 8Admin Note: per pt, done at [facility] 9Admin Note: given at work 10Admin Note: given in the fall 11Result Comment: [id number] 12Result Comment: [08/31/2018] [id number] 13Result Comment: [08/24/2015] given w/out incident 14Admin Note: per pt 15Admin Note: [facility] Medications acetaminophen 650 mg oral tablet, extended release 1 tablet = 650 mg, By Mouth, Every 8 hours, PRN Pain , Moderate, for 30 days, # 90 tablet, 7 Refills, Acute 10/24/21 12:47:00 EST, 02/26/21 12:47:00 EDT, ER Tablet, [facility] #[id number], 156, cm, 03/13/20 10:31:00 EDT, Height, 78.8, kg, 2... Start Date: 02/26/21 Stop Date: 10/24/21 Status: Ordered albuterol 0.083% inhalation solution 3 mL = 2.5 mg, Inhalation, Every 6 hours, PRN for wheezing, Dx: asthma, # 100 each, 4 Refills, Maintenance, 12/01/19 12:54:00 EST, Solution, [facility]/pharmacy #2476, 156, cm, 12/01/19 12:40:00 EST, Height, 79.6, kg, 03/10/19 14:10:00 EDT, Dry Weight Start Date: 12/01/19 Stop Date: 04/29/20 Status: Ordered albuterol CFC free 90 mcg/inh inhalation aerosol 2, puffs, Inhalation, Every 4 hours, PRN, # 1 each, Refills 3, Tot. Refills 3, Maintenance, 03/13/21 8:25:00 EDT, Aerosol, Route to Pharmacy Electronically, [id number], [facility] #[id number], 156, cm, 03/13/21 8:16:00 E... Start Date: [...] 3 Refills, Maintenance, 03/13/21 8:26:00 EDT, Tablet, [facility] #[id number], 156, cm, 03/13/21 8:16:00 EDT, Height, 78.8, [...] mL, 0 Refills, Maintenance, 07/25/20 16:52:00 EDT, [place], [facility]/pharmacy #5706, 2 sprays Nares, Both 2 times a day, 156, cm, 03/13/20 10:31:00 EDT, Height, 78.8, kg, 12/20/19 10:35:00 EST, Dry Weight Start Date: 07/25/20 Status: Ordered levothyroxine 0.05 mg oral tablet 1 tablet = 50 mcg, By Mouth, Daily, # 90 tablet, 3 Refills, Maintenance, 03/13/21 8:24:00 EDT, Tablet, [facility] #[id number], 156, cm, 03/13/21 8:16:00 EDT, Height, 78.8, kg, 12/20/19 10:35:00 EST, Dry Weight Start Date: 03/13/21 Stop Date: 03/08/22 Status: Ordered montelukast 10 mg oral tablet 1, tablet, By Mouth, Daily, # 90 tablet, Refills 2, Tot. Refills 0, Maintenance, 10/05/20 15:45:00 EST, Route to Pharmacy Electronically, [facility], 156, cm, 03/13/20 10:31:00 EDT, Height, 78.8, [...] each, 0 Refills, Maintenance, 09/14/20 8:47:00 EST, [facility]/pharmacy #5756, 1 puffs Inhalation 2 times a day,x30 [...] of hernia of abdomina l wall(Confirmed) Active Vital Signs Most recent to oldest [Reference Range]: 1 2 Height 156 cm (03/13/21 8:35 AM) 156 cm (03/13/21 8:16 AM) Weight 82.2 kg (03/13/21 8:16 AM) Oxygen Saturation [94-100 %] 98 % (03/13/21 8:16 AM) Pulse Rate [55-90 bpm] 64 bpm (03/13/21 8:16 AM) Body Mass Index [18.5-24.99] 33.78 *>HHI* (03/13/21 8:16 AM) Blood Pressure [90-138/55-84 mm Hg] 114/ 60mm Hg (03/13/21 8:35 AM) 132/78mm Hg (03/13/21 8:16 AM) Temperature [96.8-100.4 DegF] 98.3 DegF (03/13/21 8:16 AM) Mode of Delivery (Oxygen) Room air (03/13/21 8:16 AM) Blood pressure sites Arm, left (03/13/21 8:16 AM) Temperature Route Temporal (03/13/21 8:16 AM) Social History Social History Type Response Smoking Status Never smoker entered on: 10/12/14 Sex
--- OUTSIDE RECORDS SUMMARY | 2024-07-15 15:37 | XMS_ITS | Continuity of Care Document ---
Author Organization [facility] Address [address] [place] [address]- Care Team Providers Care Health Safety Specialist Name Role Phone Jacob DORAN, Santi Primary Care Physician [facility] Date[facility]s): 02/03/23 - 03/05/23 [facility] [address] [place], [place] [address] Allergies, Adverse Reactions, Alerts Substance [...] (Td) 11/03/99 Given 1Admin Note: done @ [facility],form received 2Result Comment: [07/31/2015] [facility] 3Admin Note: done @ [facility] 4Admin Note: vis sheet given. 5Admin Note: work 6Admin Note: given at [facility] 7Admin Note: per pt, done at [facility] 8Admin Note: done @ [facility], form received 9Admin Note: given at work 10Admin Note: given in the fall 11Result Comment: [id number] 12Result Comment: [08/31/2018] [id number] 13Result Comment: [08/24/2015] given w/out incident 14Admin Note: per pt 15Admin Note: [facility] Medications acetaminophen 650 mg oral tablet, extended release 1 tablet, By Mouth, Every 8 hours, PRN NEEDED FOR PAIN, # 90 tablet, 3 Refills, Maintenance, 01/17/23 12:44:00 EDT, [facility] STORE 61308, 156.15, cm, 11/29/22 14:40:00 EST, Height, 79.5, kg, 06/06/22 11:17:00 EDT, Dry Weight Start Date: 01/17/23 Status: Ordered Albuterol (Eqv-ProAir HFA) 90 mcg/inh inhalation aerosol 2 puffs, Inhalation, Every 6 hours, PRN Wheezing/Shortness of Breath, # 6.7 Gm, 11 Refills, Maintenance, 08/29/22 9:07:00 EDT, [facility]/pharmacy #[id number], Partial fill [...] each, 10 Refills, Maintenance, 11/25/22 15:18:00 EST, [place], [facility]/pharmacy #2476, replaces 0.15% dose, 1 sprays [...] 16 Gm, 11 Refills, 08/29/22 9:07:00 EDT, [facility]/pharmacy #[id number], USE 1 SPRAY IN EACH NOSTRL 2 TIMES A DAYX 5 DAYS, AND THEN DAILY THEREAFTER, 156.15, cm, 10... Start Date: 08/29/22 Status: Ordered levothyroxine 0.05 mg oral tablet 1 tablet, By Mouth, Daily, # 90 tablet, 1 Refills, Maintenance, 03/01/23 14:21:00 EDT, [facility] ST[facility] 09013, 156.15, cm, 11/29/22 14:40:00 EST, Height, 79.5, kg, 06/06/22 11:17:00 EDT, Dry Weight Start Date: 03/01/23 Status: Ordered loratadine 10 mg oral tablet 10 mg, 1, tablet, By Mouth, Daily, # 30 tablet, Refills 11, Tot. Refills 11, Maintenance, 08/29/22 9:07:00 EDT, Route to Pharmacy Electronically, [facility]/pharmacy #[id number], Partial fill upon patient requestif [...] 1 each, 11 Refills, Maintenance, 11/28/2314:07:00 EST, [facility], Partial fill upon patient [...] 08/29/22 9:07:00 EDT, Route to Pharmacy Electronically, [facility]/pharmacy #[id number], Partial fill upon patient requestif the prescription is for a schedule II opioid lauro... Start Date: 08/29/22 Status: Ordered Symbicort 160mcg/4.5mcg Inhaler 2, puffs, Inhalation, 2 times a day, in the morning and the evening use with spacer chamber rinse mouth and throat after use, # 1 each, Refills 5, Tot. Refills 5, Maintenance, 10/17/22 10:03:00 EST, Aerosol, Route to Pharmacy Electronically, [id number]... Start Date: 10/17/22 Status: Ordered Vitamin D3 [...] Personnel Name: Justa HARRIS, Geni Orlando Position: [facility] Associate Professional Member Role: Primary Care Nurse Address: Address: [address] [place] [address]- [place] Name: Santi James MD Position: [facility] Primary Care Physician Member Role: PCP Address: Address: [address] [facility] [place] [address]- Care Team Related Persons Name: PITER BAILEY Address: home [address] [place] [address] Name: DELMIS ADAMS Address: home [place], [place] Name: RUPERT PALMER Address: home [address] [place], [place] Name: DESIRAE CHAUDHARY Address: home [address] [place], [place]
--- OUTSIDE RECORDS SUMMARY | 2024-07-15 15:37 | XMS_ITS | Continuity of Care Document ---
Author Organization [facility] Address [address] [place] [address]- Care Team Providers Care Surgical Clinical Reviewer Name Role Phone Santi James MD Primary Care Physician [facility] Date[facility]s): 10/03/23 - 11/02/23 [facility] [address] [place], [place] [address] All[facility]ies, Adverse Reactions, Alerts Substance Reaction Severity [...] Given 1Admin Note: done @ [facility],form received 2Result Comment: [07/31/2015] [facility] 3Admin Note: [facility] @ [facility] 4Admin Note: vis sheet given. 5Admin Note: work 6Admin Note: given at [facility] in [place] 7Admin Note: per pt, done at [facility] 8Admin Note: done @ [facility], form received 9Admin Note: given at work 10Admin Note: given in the fall 11Result Comment: [id number] 12Result Comment: [08/31/2018] [id number] 13Result Comment: [08/24/2015] given w/out incident 14Admin [...] Refills, Maintenance, 01/17/23 12:44:00 EDT, [facility], 156.15, cm, 11/29/22 14:40:00 EST, Height, 79.5, [...] 90 Unknown,1 Refills, Maintenance, 06/10/23 8:18:00 EDT, [facility], 90, USE 1 SPRAY IN BOTH NOSTRILS [...] Refills, Soft Stop, 03/14/23 15:31:00 EDT, [facility], Partial fill upon patient request if theprescription is for a schedule II opioid drug., 155... Start Date: 03/14/23 Status: Ordered fexofenadine 180 mg oral tablet 1 tablet = 180 mg, By Mouth, Daily, PRN for allergy symptoms, # 90 tablet, 4 Refills, Maintenance, 09/02/23 11:04:00 EDT, Tablet, [facility]/pharmacy #2476, Partial fill upon [...] Refills, Maintenance, 10/28/23 10:28:00 EST, Tablet, [facility], Partial fill upon patient request if the [...] Personnel Name: Justa HARRIS, Geni Orlando Position: [facility] Associate Professional Member Role: Primary Care Nurse Address: Address: [address] [place] [address]- Name: Talia Matute RN Position: [facility] RN Member Role: Primary Care Nurse Name: Santi James MD Position: [facility] Physician - Primary Care Member Role: PCP Address: Address: [address] [place] [address] Adult & [place] [address]- Care Team Related Persons Name: PITER BAILEY Address: home [address] [place] [address] Name: DELMIS ADAMS Address: home [address] [place], [place] Name: RUPERT PALMER Address: home [address] [place], [place] Name: DESIRAE CHAUDHARY Address: [address] [address]
--- OUTSIDE RECORDS SUMMARY | 2024-07-15 15:37 | XMS_ITS | Continuity of Care Document ---
Author Organization [facility]] [facility] Address [address] [place] [address]- Care Team Providers Care Floor Trader Name Role Phone Santi James MD Primary Care Physician [place] [facility] [place] 06/17/22 - 06/24/22 [facility] [address] [place] [place] [address] Encounter Diagnosis COVID-19 virus infection(Discharge Diagnosis) - 06/17/22 Sinus congestion(Discharge Diagnosis) - 06/17/22 Attending Physician: Billie Hayden DO Allergies, Adverse Reactions, Alerts Substance Reaction Severity Status doxycycline Hives Active nitrofurantoin Pruritus Rash Active morphine Active benzonatate Speech impediment Active Lopid Muscle cramps Myalgia and myositis unspecified Active Percocet Active Biaxin Upset stomach Active Levaquin Hives Active Demerol Active Lipitor Myalgia unspecified Muscle cramps Active Immunizations Given and Recorded Vaccine Date [...] (Td) 11/03/99 Given 1Admin Note: done @ [facility],form received 2Result Comment: [07/31/2015] [facility] 3Admin Note: done @ [facility] 4Admin Note: vis sheet given. 5Admin Note: work 6Admin Note: given at [facility] in [place] 7Admin Note: per pt, done at [facility] 8Admin Note: done @ [facility], form received 9Admin Note: given at work 10Admin Note: given in the fall 11Result Comment: [id number] 12Result Comment: [08/31/2018] [id number] 13Result Comment: [08/24/2015] given w/out incident 14Admin Note: per pt 15Admin Note: [facility] Medications acetaminophen 650 mg oral tablet, extended release 1 tablet, By Mouth, Every 8 hours, PRN NEEDED FOR PAIN, # 90 tablet, 3 Refills, [facility] 22907,156, cm, 04/04/22 7:36:00 EDT, Height, 78.9, kg, 04/04/22 7:36:00 EDT, Dry Weight Start Date: 04/08/22 Status: Ordered Albuterol (Eqv-ProAir HFA) 90 mcg/inh inhalation aerosol 2 puffs, Inhalation, Every 6 hours, PRN Wheezing/Shortness of Breath, # 6.7 Gm, 11 Refills, Maintenance, 02/26/22 9:18:00 EDT, [facility]/pharmacy #[id number], Partial fill upon patient request if [...] each, 4 Refills, Maintenance, 02/07/22 12:08:00 EDT, [place], [facility]/pharmacy #2476, Partial fill upon patient request if the prescription is for a schedule II opioid drug., 1 sprays Nares... Start Date: 02/07/22 Stop Date: 07/07/22 Status: Ordered cetirizine 10 mg oral tablet 1 tablet, By Mouth, Daily, # 90 tablet, 3 Refills, [facility] 87919, 156, cm, 03/18/22 8:26:00 EDT, Height Start [...] 0 Refills, Soft Stop, 06/20/22 13:59:00 EDT, Tablet,[facility]/pharmacy #2476, Partial fill upon patient request if the prescription is for a schedule II opioid drug., 155, cm, 06/06/22 11:17:00 EDT, Height, 79... Start Date: 06/20/22 Status: Ordered fluticasone 50 mcg/inh nasal spray See Instructions, USE 1 SPRAY IN EACH NOSTRL 2 TIMES A DAY X 5 DAYS, AND THEN DAILY THEREAFTER, # 48 mL, 1 Refills, [facility] 23972, 90, USE 1 SPRAY IN EACH NOSTRL 2 TIMES A DAY X 5 DAYS, AND THEN DAILY THEREAFTER, 156, cm, 04/04/22 7:36:00 EDT, Heigh... Start Date: 04/30/22 Status: Ordered levothyroxine 0.05 mg oral tablet See Instructions, TAKE 1 TABLET BY MOUTH EVERY DAY, # 90 tablet, 1 Refills, [facility] 52723, 156, cm, 02/07/22 11:31:00 EDT, Height Start Date: 02/19/22 Status: Ordered loratadine 10 mg oral tablet 10 mg, 1, tablet, By Mouth, Daily, # 30 tablet, Refills 11, Tot. Refills 11, Maintenance, 02/26/22 9:18:00 EDT, Route to Pharmacy Electronically, [facility]/pharmacy #2476, Partial fill upon patient requestif the [...] 02/26/22 9:18:00 EDT, Route to Pharmacy Electronically, [facility]/pharmacy #3436, Partial fill upon patient requestif the prescription is for a schedule II opioid lauro... Start Date: 02/26/22 Status: Ordered Symbicort 160mcg/4.5mcg Inhaler 2, puffs, Inhalation, 2 times a day, in the morning and the evening use with spacer chamber rinse mouth and throat after use, # 54 Gm, Refills 12, Tot. Refills 12, Maintenance, 02/26/22 9:18:00 EDT, Aerosol, Route to Pharmacy Electronically, [id number]... Start Date: 02/26/22 Status: Ordered Vitamin D3 [...] pack/packet, 0 Refills, Maintenance, 06/17/22 17:01:00 EDT, [facility], Partial fill upon patient [...] wall(Confirmed) Active 1Problem added by Discern Expert Diagnosis Diagnosis Type Effective Dates Health Status Clinical Service Informant COVID-19 virus infection Discharge Diagnosis 06/17/22 Sinus congestion Discharge Diagnosis 06/17/22 Social History Social History Type Response Smoking Status Never smoker entered on: 10/12/14 Sex
--- OUTSIDE RECORDS SUMMARY | 2024-07-15 15:37 | XMS_ITS | Continuity of Care Document ---
Author Organization [facility] Address [address] [place] [address]- Care Team Providers Care Local Sales Manager Name Role Phone Jacob DORAN, Santi Primary Care Physician [facility] Date[facility]): 12[facility]23[facility]19 - 01/02/20 [facility] [address] [place] [address]- [facility] Attending Physician: Admtr, Ar8 Allergies, Adverse Reactions, Alerts Substance Reaction Severity Status doxycycline Hives Active nitrofurantoin Pruritus Rash Active morphine Active benzonatate Speech impediment Active Zithromax gi upset Active Lopid Muscle cramps Myalgia and myositis unspecified Active Percocet Active Biaxin Upset stomach Active Augmentin hives Active Lipitor Myalgia unspecified Muscle cramps Active Levaquin Hives Active Bactrim DS Stomach cramps Active Immunizations Given and Recorded Vaccine [...] Re corded influenza virus vaccine, inactivated 9 07/01/14 Gi cristel influenza virus vaccine, inactivated 10 [...] in the fall 3Admin Note: done @ [facility], form received 4Result Comment: [id number] 5Result Comment: [08/31/2018] [id number] 6Result Comment: [08/24/2015] given w/out incident 7Admin Note: done @ [facility],form received 8Result Comment: [07/31/2015] [facility] 9Admin Note: done @ [facility] 10Admin Note: vis sheet given. 11Admin Note: work 12Admin Note: given at [facility] 13Admin Note: per pt, done at [facility] 14Admin Note: per pt 15Admin Note: [facility] Medications acetaminophen 650 mg oral tablet, extended release 1 tablet = 650 mg, By Mouth, Every 8 hours, PRN as needed for pain, for 30 days, # 100 tablet, 1 Refills, Acute 02/01/20 11:16:00 EDT, 12/03/19 11:16:00 EST, ER Tablet, [facility]/pharmacy #[id number], 156, cm, 12/03/19 8:37:00 EST, Height, 79.6, kg, 03/10/19 14:1... Start Date: 12/03/19 Stop Date: 02/01/20 Status: Ordered Aerochamber See Instructions, # 1 units, Refills 0, Tot. Refills 0, Maintenance, use with your inhalers Dx: asthma, 10/28/17 13:45:11, Compound Start Date: 10/28/17 Status: Ordered albuterol 0.083% inhalation solution 3 mL = 2.5 mg, Inhalation, Every 6 hours, PRN for wheezing, Dx: asthma, # 100 each, 4 Refills, Maintenance, 12/01/19 12:54:00 EST, Solution, [facility]/pharmacy #[id number], 156, cm, 12/01/19 12:40:00 EST, Height, 79.6, kg, 03/10/19 14:10:00 EDT, Dry Weight Start Date: 12/01/19 Stop Date: 04/29/20 Status: Ordered albuterol CFC free 90 mcg/inh inhalation aerosol 2, puffs, Inhalation, Every 4 hours, PRN, # 9 Gm, Refills 0, Tot. Refills 0, Maintenance, 10/28/17 14:12:34, Aerosol, Route to Pharmacy Electronically, [id number], [facility]/pharmacy #[id number], Compound Start Date: 10/28/17 Status: Ordered aspirin 81 mg oral tablet 1 tablet = 81 mg, By Mouth, Daily, # 30 tablet, 10 Refills, Maintenance, 12/09/19 10:24:00 EST, Tablet Start Date: 12/09/19 Stop Date: 11/03/20 Status: Ordered cetirizine 10 mg oral tablet 1 tablet = 10 mg, By Mouth, Daily, # 30 tablet, 0 Refills, Maintenance, 08/16/19 14:37:53 EDT, Tablet Start Date: 08/16/19 Stop Date: 09/15/19 Status: Ordered CPAP at 8mmHg CPAP at 8mmHg, See Instructions, # 1 each, Refills 0, Tot. Refills 0, Maintenance, DX: sleep apnea length of need 99 months, 01/20/18 15:26:44, Compound Start Date: 01/20/18 Status: Ordered Excedrin Aspirin Free 500 mg-65 mg oral tablet 1 tablet, By Mouth, Every 6 hours, PRN for pain, # 50 tablet, 0 Refills, Acute 01/07/20 10:26:00 EST, 12/09/19 10:25:00 EST, Tablet Start Date: 12/09/19 Stop Date: 01/07/20 Status: Ordered Flonase 50 mcg/inh nasal spray 2 sprays, Nares, Both, Daily, # 16 Gm, 2 Refills, Maintenance, 12/03/19 8:45:00 EST Start Date: 12/03/19 Status: Ordered FLUoxetine 20 mg oral capsule 20 mg, 1, capsule, By Mouth, Daily, # 30 capsule, Refills 5, Tot. Refills 5, Maintenance, 08/16/19 14:35:23 EDT, Route to Pharmacy Electronically, [id number], [facility]/pharmacy #[id number], increase in dose Start Date: 08/16/19 Stop Date: 02/12/20 Status: Ordered levothyroxine 0.05 mg oral tablet 1 tablet = 50 mcg, By Mouth, Daily, # 30 tablet, 11 Refills, Maintenance, 02/19/19 15:18:33 EDT, Tablet Start Date: 02/19/19 Stop Date: 02/14/20 Status: Ordered mask, tubing,filters, head gear, chin strap and water chamber mask, tubing,filters, head gear, chin strap and water chamber, See Instructions, # 1 each, Refills 11, Tot. Refills 11, Maintenance, DX: sleep apnea length of need 99 months, 08/27/18 7:49:32 EDT, [facility] Start Date: 08/27/18 Status: Ordered Massage Therapy Massage Therapy, See Instructions, # 1 each, Refills 0, Tot. Refills 0, Maintenance, get massages for myalgia and joint pains, 12/09/19 10:31:00 EST, Compound Start Date: 12/09/19 Status: Ordered montelukast 10 mg oral tablet 10 mg, 1, tablet, By Mouth, Daily, # 30 tablet, Refills 7, Tot. Refills 7, Maintenance, 09/13/19 13:49:27 EST, Route to Pharmacy Electronically, [id number], [facility]/pharmacy #[id number] Start Date: 09/13/19 Stop Date: 05/10/20 Status: Ordered Mucinex 600 mg oral tablet, extended release 1 tablet = 600 mg, By Mouth, Every 12 hours, PRN Cough, for 30 days, # 60 tablet, 0 Refills, Acute 01/08/20 10:29:00 EST, 12/09/19 10:29:00 EST, ER Tablet Start Date: 12/09/19 Stop Date: 01/08/20 Status: Ordered multivitamin Multiple Vitamins oral tablet, chewable 1 tablet, By Mouth, Daily, # 30 tablet, 0 Refills, Maintenance, 12/09/19 10:30:00 EST Start Date: 12/09/19 Stop Date: 01/08/20 Status: Ordered nebulizer machine nebulizer machine, See Instructions, # 1 each, Refills 0, Tot. Refills 0, Maintenance, use as directed in home diagnosis: asthmatic bronchitis with bronchospasm and cough urgent, 05/21/18 17:01:06 EDT, urgent, Compound Start Date: 05/21/18 Status: Ordered Omeprazole By Mouth, Daily, 0 Refills, Maintenance, 08/23/19 8:18:58 EDT Start Date: 08/23/19 Status: Ordered Problem List Condition Effective Dates [...] recent to oldest [Reference Range]: 1 Height 157.48 cm (11/18/08 8:51 AM) Weight 74.540 kg (11/18/08 8:51 AM) Pulse Rate [55-90 bpm] 72 bpm (11/18/08 8:51 AM) Body Mass Index [18.50-24.99] 30.06 *>HHI* (11/18/08 8:51 AM) Blood Pressure [90-138/55-84 mm Hg] 132/ 74mm Hg (11/18/08 8:51 AM) Respiratory Rate [16-30 br/min] 16 br/mi n (11/18/08 8:51 AM) Blood pressure sites Arm, right (11/18/08 8:51 AM) Social History Social History Type Response Smoking Status Never smoker entered on: 10/12/14 Sex
--- OUTSIDE RECORDS SUMMARY | 2024-07-15 15:37 | XMS_ITS | Continuity of Care Document ---
Author Organization [facility] ter Address [address] [place] [address]- Care Team Providers Care Coil Repair Technician Name Role Phone Santi James MD Primary Care Physician Encounter [facility] Date(s): 12/10/19 - 12/10/[address] [address]- [place] States Encounter Diagnosis Sinus infection(Final) - 12/10/19 Anxiety(Final) - 12/10/19 Headache(Final) - 12/10/19 Anxiety(Final) - 12/10/19 Sinus infection(Final) - 12/10/19 Headache(Final) - 12/10/19 Discharge Disposition: A-D/C Home Attending Physician: Kiko Orr MD Admitting Physician: Kiko Orr MD Referring Physician: Not on Staff, Referring MD Allergies, Adverse Reactions, Alerts Substance Reaction [...] in the fall 3Admin Note: done @ [facility], form received 4Result Comment: [id number] 5Result Comment: [08/31/2018] [id number] 6Result Comment: [08/24/2015] given w/out incident 7Admin Note: done @ [facility],form received 8Result Comment: [07/31/2015] [facility] 9Admin Note: done @ [facility] 10Admin Note: vis sheet given. 11Admin Note: work 12Admin Note: given at [facility] 13Admin Note: per pt, done at [facility] 14Admin Note: per pt 15Admin Note: [facility] Medications acetaminophen 650 mg oral tablet, extended release 1 tablet = 650 mg, By Mouth, Every 8 hours, PRN as needed for pain, for 30 days, # 100 tablet, 1 Refills, Acute 02/01/20 11:16:00 EDT, 12/03/19 11:16:00 EST, ER Tablet, [facility]/pharmacy #[id number], 156, cm, 12/03/19 8:37:00 EST, Height, 79.6, kg, 03/10/19 14:1... Start Date: 12/03/19 Stop Date: 02/01/20 Status: Ordered Advil Cold & Sinus 200 mg-30 mg oral tablet 1 tablet, By Mouth, Every 4 hours, PRN for cold symptoms, for 30 days, # 40 tablet, 0 Refills, Acute 01/08/20 10:25:00 EST, 12/09/19 10:25:00 EST, Tablet Start Date: 12/09/19 Stop Date: 01/08/20 Status: Ordered Aerochamber See Instructions, # 1 units, Refills 0, Tot. Refills 0, Maintenance, use with your inhalers Dx: asthma, 10/28/17 13:45:11, Compound Start Date: 10/28/17 Status: Ordered albuterol 0.083% inhalation solution 3 mL = 2.5 mg, Inhalation, Every 6 hours, PRN for wheezing, Dx: asthma, # 100 each, 4 Refills, Maintenance, 12/01/19 12:54:00 EST, Solution, [facility]/pharmacy #[id number], 156, cm, 12/01/19 12:40:00 EST, Height, 79.6, kg, 03/10/19 14:10:00 EDT, Dry Weight Start Date: 12/01/19 Stop Date: 04/29/20 Status: Ordered albuterol CFC free 90 mcg/inh inhalation aerosol 2, puffs, Inhalation, Every 4 hours, PRN, # 9 Gm, Refills 0, Tot. Refills 0, Maintenance, 10/28/17 14:12:34, Aerosol, Route to Pharmacy Electronically, [id number], [facility]/pharmacy #1972, Compound Start Date: 10/28/17 Status: [...] Date: 08/16/19 Stop Date: 09/15/19 Status: Ordered Cipro 250 mg oral tablet 1 tablet = 250 mg, By Mouth, Every 12 hours, for 10 days, # 20 tablet, 0 Refills, Acute 12/11/19 12:54:00 EST, 12/01/19 12:54:00 EST, Tablet, [facility]/pharmacy #[id number], replaces doxycycline which gave her hives, 156, cm, 12/01/19 12:40:00 EST, Height, 79.6,... Start Date: 12/01/19 Stop Date: 12/11/19 Status: Ordered CPAP at 8mmHg CPAP at [...] 08/16/19 14:35:23 EDT, Route to Pharmacy Electronically, [id number], [facility]/pharmacy #[id number], increase in dose Start Date: [...] 09/13/19 13:49:27 EST, Route to Pharmacy Electronically, [id number], [facility]/pharmacy #[id number] Start Date: 09/13/19 Stop Date: 05/10/20 Status: [...] of hernia of abdomina l wall(Confirmed) Active Results Radiology Reports * Exam Date Time Procedure Performing Provider Status 12/10/19 9:02 AM Chest 2 Views Frontal and Lat Bobo Chong; Lupe (Verified) Notes: (Chest 2 Views Frontal and Lat) Reason For Exam: chest discomfort;Other: RESULT: Chest 2 Views Frontal and Lat Chest 2 Views Frontal and Lat INDICATION: Chest tightness. COMPARISON: Multiple priors, most recent 02/23/2019. FINDINGS: LINES AND TUBES: None. LUNGS AND PLEURA: Prominent pulmonary vasculature without overt edema. No focal consolidation. No pleural effusion orpneumothorax. HEART, MEDIASTINUM AND OMARI: Heart is normal in size. Normal mediastinal and hilar contour. BONES AND SOFT TISSUES: No acute abnormality. IMPRESSION: Prominent pulmonary vasculature without overt edema. Otherwise, the lungs are clear. I have personally reviewed the images and I agree with this report. WSN: [id number] Dictated By: Caio Raines MD Dictated Date/Time: 12/10/19 9:08 am Reviewed By: Ludin Preciado MD Signed By: Ludin Preciado MD Signed Date/Time: 12/10/19 9:13 am Transcribed By: SARI Transcribed Date/Time: 12/10/19 9:05 am Vital Signs Most recent to oldest [Reference Range]: 1 2 3 Oxygen Saturation [94-100 %] 98 % (12/10/19 10:26 AM) 99 % (12/10/19 8:36 AM) 99 % (12/10/19 7:01 AM) Pulse Rate [55-90 bpm] 60 bpm (12/10/19 10:26 AM) 67 bpm (12/10/19 8:36 AM) 63 bpm (12/10/19 7:01 AM) Blood Pressure [90-138/55-84 mm Hg] 129/47mm Hg (12/10/19 10:26 AM) 127/69mm Hg (12/10/19 8:36 AM) 110/85mm Hg (12/10/19 7:01 AM) Respiratory Rate [16-30 br/min] 18 br/min (12/10/19 10:26 AM) 19 br/min (12/10/19 8:36 AM) 17 br/min (12/10/19 7:01 AM) Temperature [96.8-100.4 DegF] 97.7 DegF (12/10/19 7:01 AM) Mode of Delivery (Oxygen) Room air (12/10/19 10:26 AM) Room air (12/10/19 8:36 AM) Room air (12/10/19 7:01 AM) Blood pressure sites Arm, left (12/10/19 8:36 AM) Temperature Route Oral (12/10/19 7:01 AM) Social History Social History Type Response Smoking Status Never smoker entered on: 10/12/14 Sex
--- OUTSIDE RECORDS SUMMARY | 2024-07-15 15:37 | XMS_ITS | Continuity of Care Document ---
Author Organization [facility] Address [address] [place] [address]- Care Team Providers Care Sand Technician Name Role Phone Santi James MD Primary Care Physician [facility] Date(s): 12/25/22 - 01/24/23 [facility] [address] [place], [place] [address] Allergies, Adverse Reactions, Alerts Substance Reaction Severity Status doxycycline Hives Active nitrofurantoin Pruritus Rash Active morphine Active benzonatate Speech impediment Active Percocet Active Levaquin Hives Active Demerol Active Lopid Muscle cramps Myalgia [...] [facility] 3Admin Note: done @ [facility] 4Admin Note: vis sheet given. 5Admin Note: work 6Admin Note: given at [facility] [place] 7Admin Note: per pt, done at [facility] 8Admin Note: done @ [facility], form received 9Admin Note: given at work 10Admin Note: given in the fall 11Result Comment: [id number] 12Result Comment: [08/31/2018] [id number] 13Result Comment: [08/24/2015] given w/out incident 14Admin Note: per pt 15Admin Note: [facility] Medications acetaminophen 650 mg oral tablet, extended release 1 tablet, By Mouth, Every 8 hours, PRN NEEDED FOR PAIN, # 90 tablet, 3 Refills, Maintenance, 01/17/23 12:44:00 EDT, [facility], 156.15, cm, 11/29/22 14:40:00 EST, Height, 79.5, kg, 06/06/22 11:17:00 EDT, Dry Weight Start Date: 01/17/23 Status: Ordered Albuterol (Eqv-ProAir HFA) 90 mcg/inh inhalation aerosol 2 puffs, Inhalation, Every 6 hours, PRN Wheezing/Shortness of Breath, # 6.7 Gm, 11 Refills, Maintenance, 08/29/22 9:07:00 EDT, [facility]/pharmacy #[id number], Partial fill upon patient request if [...] each, 10 Refills, Maintenance, 11/25/22 15:18:00 EST, [place], [facility]/pharmacy #[id number], replaces 0.15% dose, 1 sprays Nares, [...] 16 Gm, 11 Refills, 08/29/22 9:07:00 EDT, [facility]/pharmacy #[id number], USE 1 SPRAY IN EACH NOSTRL 2 TIMES A DAYX 5 DAYS, AND THEN DAILY THEREAFTER, 156.15, cm, 10... Start Date: 08/29/22 Status: Ordered levothyroxine 0.05 mg oral tablet See Instructions, TAKE 1 TABLET BY MOUTH EVERY DAY, # 90 tablet, 1 Refills, 09/01/22 19:54:00 EDT, [facility]/pharmacy #[id number], 156.15, cm, 08/29/22 8:44:00 EDT, Height, 79.5, kg, 06/06/22 11:17:00 EDT, Dry Weight Start Date: 09/01/22 Status: Ordered loratadine 10 mg oral tablet 10 mg, 1, tablet, By Mouth, Daily, # 30 tablet, Refills 11, Tot. Refills 11, Maintenance, 08/29/22 9:07:00 EDT, Route to Pharmacy Electronically, [facility]/pharmacy #[id number], Partial fill upon patient requestif the [...] 1 each, 11 Refills, Maintenance, 11/28/2314:07:00 EST, [facility], Partial fill upon patient request if the prescription isfor a schedule II opioid drug., 156.15, cm, 2... Start Date: 11/28/22 Status: Ordered omeprazole 20 [...] 08/29/22 9:07:00 EDT, Route to Pharmacy Electronically, [facility]/pharmacy #[id number], Partial fill upon patient requestif the prescription is for a schedule II opioid lauro... Start Date: 08/29/22 Status: Ordered Symbicort 160mcg/4.5mcg Inhaler 2, puffs, Inhalation, 2 times a day, in the morning and the evening use with spacer chamber rinse mouth and throat after use, # 1 each, Refills 5, Tot. Refills 5, Maintenance, 10/17/22 10:03:00 EST, Aerosol, Route to Pharmacy Electronically, [id number]... Start Date: 10/17/22 Status: Ordered Vitamin D3 [...] Response Smoking Status Never smoker entered on: 12/10/14 Sex Patient Care team information Care Team Personnel Name: Justa HARRIS, Geni Orlando Position: [facility] Associate Professional Member Role: Primary Care Nurse Address: Address: [address] [place] [address]- Name: Santi James MD Position: [facility] Primary Care Physician Member Role: PCP Address: Address: [address] [place] [address]- Care Team Related Persons Name: PITER BAILEY Address: home [address] [place] [address] Name: DELMIS ADAMS Address: [place] [address] Name: RUPERT PALMER Address: [address] [place] [address] Name: DESIRAE CHAUDHARY Address: home [address] [place], [place]
--- OUTSIDE RECORDS SUMMARY | 2024-07-15 15:37 | XMS_ITS | Continuity of Care Document ---
Author Organization [facility] Address [address] [place] [address]- Care Team Providers Care Student Name Role Phone Santi James MD Primary Care Physician [facility] 06[facility]23 - 07/05/23 [facility] [address] [place], [place] [address] Attending Physician: Admtr, Ar8 Allergies, Adverse Reactions, [...] 5Admin Note: work 6Admin Note: given at [facility] in [place] 7Admin Note: per pt, done at [facility] 8Admin Note: done @ [facility], form received 9Admin Note: given at work 10Admin Note: given in the fall 11Result Comment: [id number] 12Result Comment: [08/31/2018] [id number] 13Result Comment: [08/24/2015] given w/out incident 14Admin Note: per pt 15Admin Note: [facility] Medications acetaminophen 650 mg oral tablet, extended release 1 tablet, By Mouth, Every 8 hours, PRN NEEDED FOR PAIN, # 90 tablet, 3 Refills, Maintenance, 01/17/23 12:44:00 EDT, [facility], 156.15, cm, 11/29/22 14:40:00 EST, Height, 79.5, [...] 90 Unknown,1 Refills, Maintenance, 06/10/23 8:18:00 EDT, [facility], 90, USE 1 SPRAY IN BOTH NOSTRILS [...] 11 Refills, Soft Stop, 03/14/23 15:31:00 EDT, [facility]/pharmacy #[id number], Partial fill upon patient request if theprescription is for a schedule II opioid drug., 155... Start Date: 03/14/23 Status: Ordered ergocalciferol 51965 iu oral capsule 50,000 International_Units, 1, capsule, By Mouth, Every week, # 12 capsule, Refills 0, Tot. Refills0, Maintenance, 06/12/23 7:24:00 EDT, Route to Pharmacy Electronically, [facility]/pharmacy #[id number], Partialfill upon patient request if the [...] tablet, 1 Refills, Maintenance, 03/01/23 14:21:00 EDT, [facility] STORE [facility], 156.15, cm, 11/29/22 14:40:00 EST, Height, 79.5, [...] 4 Refills, Maintenance, 03/28/23 13:04:00 EDT, Aerosol, [facility]/pharmacy #7381, replaced Proventil that is not available, 155, [...] Confirmed Active 1Problem added by Discern Expert Procedures Procedure Date Related Diagnosis Body Site Status Colonoscopy 1 06/17/23 Completed 1repeat in 5 -10 years Vital Signs Most recent to oldest [Reference [...] Status Never smoker entered on: 10/12/14 Sex Laboratory * Event Display: Non BH Lab Results Authored Date: * Event Display: Non BH Lab Results Authored Date: * Event Display: Non BH Lab Results Authored Date: * Event Display: Non BH Lab Results Authored Date: * Event Display: RESIDENTIAL LIVING ASSISTANT Pap Test, Non-BH Authored Date: EKG study * Event Display: EKG Authored Date: Cardiology * Colon , Lhea: PERFORM Event Display: Cardiovascular Results Scanned Authored Date: [id number] Radiology * Cristine Alvarado: PERFORM Event Display: Radiology Results Scanned Authored Date: * Syeda Morton: PERFORM Event Display: Radiology Results Scanned Authored Date: [id number] * Colon , Lhea: PERFORM Event Display: Radiology Results Scanned Authored Date: Patient Care team information Care Team Personnel Name: Justa CARROTING MACHINE OPERATOR, Geni Orlando Position: [facility] Associate Professional Member Role: Primary Care Nurse Address: Address: [address] [place] [id number]- Name: Talia Matute RN Position: [facility] RN Member Role: Primary Care Nurse Name: Santi James MD Position: [facility] Physician - Primary Care Member Role: PCP Address: Address: [address] [place] [address] Adult & [place] [address]- Care Team Related Persons Name: PITER BAILEY Address: home [address] [place] [address] Name: DELMIS [place]ADMS Address: [place] [address] Name: RUPERT PALMER Address: [address] [place] [address] Name: DESIRAE CHAUDHARY Address: home [address] [place] [address]
--- OUTSIDE RECORDS SUMMARY | 2024-07-15 15:37 | XMS_ITS | Continuity of Care Document ---
Author Organization [facility] Address [address] [place] [address]- Care Team Providers Care Information Technology Analyst Name Role Phone Santi James MD Primary Care Physician [facility]counter [facility] Date(s): 05/09/23 - 06/08/23 [facility] [address] [place], [place] [address] Allergies, Adverse Reactions, Alerts Substance Reaction Severity Status doxycycline Hives Active morphine Active predniSONE Anaphylaxis Active Percocet Active Lipitor Myalgia unspecified Muscle cramps Active nitrofurantoin Pruritus Rash Active benzonatate Speech impediment Active Lopid Muscle cramps Myalgia and myositis unspecified Active Biaxin Upset stomach Active Topamax Skin rash Active tiZANidine Anaphylaxis Active Levaquin Hives Active Demerol Active Immunizations [...] (Td) 11/03/99 Given 1Admin Note: done @ [facility],form received 2Result Comment: [07/31/2015] [facility] 3Admin Note: done @ [facility] 4Admin Note: vis sheet given. 5Admin Note: work 6Admin Note: given at [facility] in [place] 7Admin Note: per pt, done at [facility] 8Admin Note: done @ [facility], form received 9Admin Note: given at work 10Admin Note: given in the fall 11Result Comment: [id number] 12Result Comment: [08/31/2018] [id number] 13Result Comment: [08/24/2015] given w/out incident 14Admin Note: per pt 15Admin Note: [facility] Medications acetaminophen 650 mg oral tablet, extended release 1 tablet, By Mouth, Every 8 hours, PRN NEEDED FOR PAIN, # 90 tablet, 3 Refills, Maintenance, 01/17/23 12:44:00 EDT, [facility], 156.15, cm, 11/29/22 14:40:00 EST, Height, 79.5, [...] each, 10 Refills, Maintenance, 11/25/22 15:18:00 EST, [place], [facility]/pharmacy #[id number], replaces 0.15% dose, 1 sprays Nares, [...] 11 Refills, Soft Stop, 03/14/23 15:31:00 EDT, [facility]/pharmacy #[id number], Partial fill upon patient request if theprescription is for a schedule II opioid drug., 155... Start Date: 03/14/23 Status: Ordered ergocalciferol 95346 iu oral capsule 50,000 International_Units, 1, capsule, By Mouth, Every week, # 12 capsule, Refills 0, Tot. Refills0, Maintenance, 04/10/23 9:13:00 EDT, Route to Pharmacy Electronically, [facility]/pharmacy #[id number], Partialfill upon patient request if the [...] tablet, 1 Refills, Maintenance, 03/01/23 14:21:00 EDT, [facility], 156.15, cm, 11/29/22 14:40:00 EST, Height, 79.5, [...] 4 Refills, Maintenance, 03/28/23 13:04:00 EDT, Aerosol, [facility]/pharmacy #[id number], replaced Proventil that is not available, [...] Personnel Name: Justa HARRIS, Geni Orlando Position: [facility] Associate Professional Member Role: Primary Care Nurse Address: Address: [address] [place] [address]- [place] Name: Talia Matute RN Position: [facility] RN Member Role: Primary Care Nurse Name: Santi James MD Position: [facility] Physician - Primary Care Member Role: PCP Address: Address: [address] [place] [address] Adult [facility] [place] [address]- Care Team Related Persons Name: PITER BAILEY Address: home [address] [place] [id number] Name: DELMIS ADAMS Address: home [address] [place], [place] Name: RUPERT PALMER Address: home [address] [place], [place] Name: DESIRAE CHAUDHARY Address: home [address] [place], [place]
--- OUTSIDE RECORDS SUMMARY | 2024-07-15 15:37 | XMS_ITS | Continuity of Care Document ---
Author Organization [facility] Address [address] [place] [address]- Care Team Providers Care Oil Analyst Name Role Phone Santi James MD Primary Care Physician Encounter [facility] Date(s): 10/02/20 - 11/01/20 [facility] [address] [place], [place] [address] Attending Physician: Admtr, Ar8 Allergies, Adverse Reactions, Alerts Substance Reaction Severity Status doxycycline Hives Active morphine Active benzonatate Speech impediment Active Percocet Active Levaquin Hives Active Bactrim DS Stomach cramps Active nitrofurantoin Pruritus Rash Active Zithromax gi upset Active Lopid Muscle [...] in the fall 3Admin Note: done @ [facility], form received 4Result Comment: [id number] 5Result Comment: [08/31/2018] [id number] 6Result Comment: [08/24/2015] given w/out incident 7Admin Note: done @ [facility],form received 8Result Comment: [07/31/2015] [facility] 9Admin Note: done @ [facility] 10Admin Note: vis sheet given. 11Admin Note: work 12Admin Note: given at [facility] 13Admin Note: per pt, done at [facility] 14Admin Note: per pt 15Admin Note: [facility] Medications acetaminophen 650 mg oral tablet, extended release 1 tablet = 650 mg, By Mouth, Every 8 hours, PRN Pain , Moderate, for 30 days, # 90 tablet, 7 Refills, Acute 11/08/20 11:12:00 EST, 03/13/20 11:12:00 EDT, ER Tablet, [facility]/pharmacy #[id number], 156, cm, 03/13/20 10:31:00 EDT, Height, 78.8, kg, 12/20/19 10:35:0... Start Date: 03/13/20 Stop Date: 11/08/20 Status: Ordered albuterol 0.083% inhalation solution 3 [...] 10/28/17 14:12:34, Aerosol, Route to Pharmacy Electronically, [id number], [facility]/pharmacy #1972, Compound Start Date: 10/28/17 Status: Ordered [...] 5 Refills, Maintenance, 10/10/20 12:10:00 EST, Tablet, [facility]/pharmacy #2476, 156, cm, 03/13/20 10:31:00 EDT, Height, [...] Electronically, [facility] STORE 12324, 156, cm, 03/13/20 10:31:00 EDT, Height, 78.8, kg, 12/20/19 10:35:00 EST, Dry Weight Start Date: 10/05/20 Status: Ordered ipratropium nasal 21 mcg/inh spray 2 sprays, Nares, Both, 2 times a day, # 30 mL, 0 Refills, Maintenance, 07/25/20 16:52:00 EDT, [place], [facility]/pharmacy #[id number], 2 sprays Nares, Both 2 times a day, 156, cm, 03/13/20 10:31:00 EDT, Height, 78.8, kg, 12/20/19 10:35:00 EST, Dry Weight Start Date: 07/25/20 Status: Ordered levothyroxine 0.05 mg oral tablet 1 tablet = 50 mcg, By Mouth, Daily, # 90 tablet, 3 Refills, Maintenance, 03/13/20 11:08:00 EDT, [facility], cm, 03/13/20 10:31:00 EDT, Height, 78.8, kg, 12/20/19 10:35:00 EST, Dry Weight Start Date: 03/13/20 Stop Date: 03/08/21 Status: Ordered montelukast 10 mg oral tablet 1, tablet, By Mouth, Daily, # 90 tablet, Refills 2, Tot. Refills 0, Maintenance, 10/05/20 15:45:00 EST, Route to Pharmacy Electronically, [facility] STORE 85114, 156, cm, 03/13/20 10:31:00 EDT, Height, 78.8, [...] Refills, Soft Stop, 09/14/20 8:46:00 EST, Tablet, [facility]/pharmacy #2476, 156,cm, 03/13/20 10:31:00 EDT, Height, 78.8, kg, 12/20/... Start Date: 09/14/20 Status: Ordered Qvar Redihaler 40 mcg/inh inhalation aerosol 1 puffs, Inhalation, 2 times a day, rinse mouth and throat after use, # 1 each, 0 Refills, Maintenance, 09/14/20 8:47:00 EST, [facility]/pharmacy #[id number], 1 puffs Inhalation 2 times a [...]
--- OUTSIDE RECORDS SUMMARY | 2024-07-15 15:37 | XMS_ITS | Continuity of Care Document ---
Author Organization [facility] Address [address] [place] [address]- Care Team Providers Care Representative Personal Service Name Role Phone Santi James MD Primary Care Physician Encounter [facility] Date(s): 10/17/22 - 10/24/22 [facility] [address] [place] [address]- Encounter Diagnosis Sinusitis(Discharge Diagnosis) - 10/17/22 Irritation of eyelid(Discharge Diagnosis) - 10/17/22 Attending Physician: Malik Santos Referring Physician: Santi James MD Allergies, Adverse Reactions, Alerts Substance Reaction Severity Status doxycycline Hives Active morphine Active Percocet Active Levaquin Hives Active Demerol Active nitrofurantoin Pruritus Rash Active benzonatate Speech [...] (Td) 11/03/99 Given 1Admin Note: [facility] 2Result Comment: [07/31/2015] [facility] 3Admin Note: [facility] 4Admin Note: vis sheet given. 5Admin Note: work 6Admin Note: given at [facility] in [place] 7Admin Note: per pt, done at [facility] 8Admin Note: done @ [facility], form received 9Admin Note: given at work 10Admin Note: given in the fall 11Result Comment: [id number] 12Result Comment: [08/31/2018] [id number] 13Result Comment: [08/24/2015] given w/out incident 14Admin Note: per pt 15Admin Note: [facility] Medications acetaminophen 650 mg oral tablet, extended release 1 tablet, By Mouth, Every 8 hours, PRN NEEDED FOR PAIN, # 90 tablet, 3 Refills, [facility],156, cm, 04/04/22 7:36:00 EDT, Height, 78.9, kg, [...] each, 4 Refills, Maintenance, 02/07/22 12:08:00 EDT, [place], Partial fill upon patient request if the prescription is for a schedule II opioid drug., 1 sprays Nares... Start Date: 02/07/22 Stop Date: 07/07/22 Status: Ordered cetirizine 10 mg oral tablet 1 tablet, By Mouth, Daily, # 90 tablet, 3 Refills, [facility], 156, cm, 03/18/22 8:26:00 EDT, Height Start [...] Gm, 11 Refills, 08/29/22 9:07:00 EDT, [facility]/pharmacy #2476, USE 1 SPRAY IN EACH NOSTRL 2 TIMES A DAYX 5 DAYS, AND THEN DAILY THEREAFTER, 156.15, cm, 10... Start Date: 08/29/22 Status: Ordered levothyroxine 0.05 mg oral tablet See Instructions, TAKE 1 TABLET BY MOUTH EVERY DAY, # 90 tablet, 1 Refills, 09/01/22 19:54:00 EDT, [facility]/pharmacy #2476, 156.15, cm, 08/29/22 8:44:00 EDT, Height, 79.5, kg, 06/06/22 11:17:00 EDT, Dry Weight Start Date: 09/01/22 Status: Ordered loratadine 10 mg oral tablet 10 mg, 1, tablet, By Mouth, Daily, # 30 tablet, Refills 11, Tot. Refills 11, Maintenance, 08/29/22 9:07:00 EDT, Route to Pharmacy Electronically, [facility]/pharmacy #2476, Partial fill upon patient requestif the prescription is for a schedule II opioid lauro... Start Date: 08/29/22 Status: Ordered meloxicam 15 mg oral tablet 1 tablet = 15 mg, By Mouth, Daily, # 30 tablet, 2 Refills, Maintenance, 10/08/22 9:48:00 EST, Tablet, [facility]/pharmacy #2476, replaces diclofenac, 156.15, cm, 08/29/22 8:44:00 [...] 9:07:00 EDT, Route to Pharmacy Electronically, [facility]/pharmacy #[id number], Partial fill upon patient requestif the prescription is for a schedule II opioid lauro... Start Date: 08/29/22 Status: Ordered Symbicort 160mcg/4.5mcg Inhaler 2, puffs, Inhalation, 2 times a day, in the morning and the evening use with spacer chamber rinse mouth and throat after use, # 1 each, Refills 5, Tot. Refills 5, Maintenance, 10/17/22 10:03:00 EST, Aerosol, Route to Pharmacy Electronically, [id number]... Start Date: 10/17/22 Status: Ordered Vitamin D3 [...] Effective Dates Health Status Clinical Service Informant Sinusitis Discharge Diagnosis 10/17/22 Irritation of eyelid Discharge Diagnosis 10/17/22 Social History Social History Type Response Smoking Status Never smoker entered on: 10/12/14 Sex Patient Care team information Care Team Personnel Name: Justa HARRIS, Geni Orlando Position: [facility] Associate Professional Member Role: Primary Care Nurse Address: Address: [address] [place] [address]- Name: Santi James MD Position: [facility] Primary Care Physician Member Role: PCP Address: Address: [address] [place], [place] [address] Care Team Related Persons Name: PITER BAILEY Address: home [address] [place] [address] Name: DELMIS ADAMS Address: [place] [address] Name: RUPERT PALMER Address: [address] [place] [address] Name: DESIRAE CHAUDHARY Address: [address] [place] [address]
--- OUTSIDE RECORDS SUMMARY | 2024-07-15 15:37 | XMS_ITS | Continuity of Care Document ---
Author Organization [facility] Address [address] [place] [address]- Care Team Providers Care Fish Inspector Name Role Phone Jacob DORAN, Santi Primary Care Physician [facility]counter [facility] Date(s): 01/26/24 - 02/25/24 [facility] [address] [place], [place] [address] Allergies, Adverse Reactions, Alerts Substance Reaction Severity Status doxycycline Hives Active nitrofurantoin Pruritus Rash Active morphine Active predniSONE Anaphylaxis Active Percocet Active Biaxin Upset stomach Active benzonatate Speech impediment Active Lopid Muscle cramps Myalgia and myositis unspecified Active Levaquin Hives Active Demerol Active ezetimibe [...] (Td) 11/03/99 Given 1Admin Note: done @ [facility],form received 2Result Comment: [07/31/2015] [facility] 3Admin Note: done @ [facility] 4Admin Note: vis sheet given. 5Admin Note: work 6Admin Note: given at [facility] in [place] 7Admin Note: per pt, done at [facility] 8Admin Note: done @ [facility], form received 9Admin Note: given at work 10Admin Note: given in the fall 11Result Comment: [id number] 12Result Comment: [08/31/2018] [id number] 13Result Comment: [08/24/2015] given w/out incident 14Admin [...] tablet, 3 Refills, Maintenance, 01/17/23 12:44:00 EDT, [facility], 156.15, cm, 11/29/22 14:40:00 EST, Height, 79.5, [...] 90 Unknown,1 Refills, Maintenance, 06/10/23 8:18:00 EDT, [facility], 90, USE 1 SPRAY IN BOTH NOSTRILS [...] Refills, Soft Stop, 03/14/23 15:31:00 EDT, [facility], Partial fill upon patient request if theprescription is for a schedule II opioid drug., 155... Start Date: 03/14/23 Status: Ordered fexofenadine 180 mg oral tablet 1 tablet = 180 mg, By Mouth, Daily, PRN for allergy symptoms, # 90 tablet, 4 Refills, Maintenance, 09/02/23 11:04:00 EDT, Tablet, [facility]/pharmacy #2476, Partial fill upon patient request if the prescription is for a schedule II opioid drug., 155, cm, ... Start Date: 09/02/23 Stop Date: 11/25/24 Status: Ordered fluconazole 150 mg oral tablet 1 tablet = 150 mg, By Mouth, Once, repeat dose if still having symptoms in 72 hours, # 2 tablet, 0 Refills, Soft Stop, 12/22/23 13:26:00 EST, Tablet, [facility]/pharmacy #2476, Partial fill upon patient request if the prescription is for a schedule II opioid... Start Date: 12/22/23 Status: Ordered ibuprofen 800 mg oral tablet 1, tablet, By Mouth, 3 times a day, X30 DAYS, STOP ASPIRIN WHILE TAKING THIS., # 90 tablet, Refills1, Maintenance, 12/04/23 7:25:00 EST, Route to Pharmacy Electronically, [facility], 155, cm, 11/18/23 16:29:00 EST, Height, 83.7, kg, 11/06/23 9:0... Start Date: 12/04/23 Status: Ordered levothyroxine 0.05 mg oral tablet 1 tablet, By Mouth, Daily, # 90 tablet, 3 Refills, Maintenance, 08/12/23 15:31:00 EDT, [facility]/pharmacy#2476, 155, cm, 08/12/23 15:09:00 EDT, Height, 83.9, kg, 03/13/23 4:46:00 EDT, Dry Weight Start Date: 08/12/23 Stop Date: 08/06/24 Status: Ordered montelukast 10 mg oral tablet 1, tablet, By Mouth, Daily, # 90 tablet, Refills 3, Maintenance, 11/23/23 8:40:00 EST, Route to Pharmacy Electronically, [facility], 155, cm, 11/18/23 16:29:00 EST, Height, 83.7, [...] 4 Refills, Maintenance, 03/28/23 13:04:00 EDT, Aerosol, [facility]/pharmacy #2476, replaced Proventil that is not [...] Personnel Name: Justa HARRIS, Geni Orlando Position: [facility] Associate Professional Member Role: Primary Care Nurse Address: Address: [address] [facility] [place] [address]- Name: Talia Matute RN Position: [facility] RN Member Role: Primary Care Nurse Name: Darshan Benz RN Position: [facility] Outreach Member Role: Primary Care Nurse Name: Santi James MD Position: [facility] Physician - Primary Care Member Role: PCP Address: Address: [address] [place] [address] Adult [place] [address]- Care Team Related Persons Name: PITER BAILEY Address: home [address] [place] [address] Name: DELMIS ADAMS Address: [place], [place] Name: RUPERT PALMER Address: home [address] [place], [place] Name: DESIRAE CHAUDHARY Address: home [address] [place], [place]
--- OUTSIDE RECORDS SUMMARY | 2024-07-15 15:37 | XMS_ITS | Continuity of Care Document ---
Author Organization [facility] Address [address] [place] [address]- Care Team Providers Care Arc Trimmer Name Role Phone Santi James MD Primary Care Physician Encounter [facility] Date(s): 01/09/21 - 02/08/21 [facility] [address] [place], [place] [address] Attending Physician: Admtr, Ar8 Allergies, Adverse Reactions, Alerts Substance Reaction Severity Status morphine Active Percocet Active Bactrim DS Stomach cramps Active doxycycline Hives Active nitrofurantoin Pruritus Rash Active benzonatate Speech impediment Active Zithromax gi upset Active Lopid Muscle cramps Myalgia and myositis unspecified Active Biaxin Upset stomach Active Augmentin 1 hives Active Lipitor Myalgia unspecified Muscle cramps Active Levaquin Hives Active 1may take cephalexin Immunizations Given and Recorded Vaccine Date Status Refusal Reason SARS-CoV-2 (COVID-19) mRNA BNT-162b2 vac 12/11/20 Recorded SARS-CoV-2 (COVID-19) mRNA BNT-162b2 vac 11/13/20 Recorded Influenza Virus Vaccine (oldterm) 08/03/19 Recorde d Influenza Virus Vaccine (oldterm) 1 07/11/09 Given Influenza Virus Vaccine (oldterm) 2 12/07/07 Given zoster vaccine, inactivated 06/19/19 Recorded pneumococcal 13-valent vaccine 06/19/19 Recorded pneumococcal 13-valent vaccine 3 06/24/16 Given tetanus/diphtheria/pertussis, acel(Tdap) 4 01/25/19 Given pneumococcal 23-valent vaccine 5 10/29/18 Given pneumococcal 23-valent vaccine 6 08/24/15 Given [...] in the fall 3Admin Note: [facility], [facility] 4Result Comment: [id number] 5Result Comment: [08/31/2018] [id number] 6Result Comment: [08/24/2015] given w/out incident 7Admin Note: [facility],form received 8Result Comment: [07/31/2015] [facility] 9Admin Note: [facility] 10Admin Note: vis sheet given. 11Admin Note: work 12Admin Note: given at [facility] 13Admin Note: per pt, done at [facility] 14Admin Note: per pt 15Admin Note: [facility] Medications albuterol 0.083% inhalation solution 3 mL = 2.5 mg, Inhalation, Every 6 hours, PRN for wheezing, Dx: asthma, # 100 each, 4 Refills, Maintenance, 12/01/19 12:54:00 EST, Solution, [facility]/pharmacy #2476, 156, cm, 12/01/19 12:40:00 EST, Height, 79.6, kg, 03/10/19 14:10:00 EDT, Dry Weight Start Date: 12/01/19 Stop Date: 04/29/20 Status: Ordered albuterol CFC free 90 mcg/inh inhalation aerosol 2, puffs, Inhalation, Every 4 hours, PRN, # 9 Gm, Refills 0, Tot. Refills 0, Maintenance, 10/28/17 14:12:34, Aerosol, Route to Pharmacy Electronically, [id number], [facility]/pharmacy #1972, Compound Start Date: 10/28/17 Status: [...] 5 Refills, Maintenance, 10/10/20 12:10:00 EST, Tablet, [facility]/pharmacy #2476, 156, cm, 03/13/20 10:31:00 EDT, [...] 10/05/20 15:45:00 EST, Route to Pharmacy Electronically, [facility] ST[facility] 50027, 156, cm, 03/13/20 10:31:00 EDT, Height, 78.8, kg, 12/20/19 10:35:00 EST, Dry Weight Start Date: 10/05/20 Status: Ordered ipratropium nasal 21 mcg/inh spray 2 sprays, Nares, Both, 2 times a day, # 30 mL, 0 Refills, Maintenance, 07/25/20 16:52:00 EDT, [place], [facility]/pharmacy #2476, 2 sprays Nares, Both 2 times a day, 156, cm, 03/13/20 10:31:00 EDT, Height, 78.8, kg, 12/20/19 10:35:00 EST, Dry Weight Start Date: 07/25/20 Status: Ordered levothyroxine 0.05 mg oral tablet 1 tablet = 50 mcg, By Mouth, Daily, # 90 tablet, 3 Refills, Maintenance, 03/13/20 11:08:00 EDT, Tablet, [facility]/pharmacy #2476, 156, cm, 03/13/20 10:31:00 EDT, Height, 78.8, kg, 12/20/19 10:35:00 EST, Dry Weight Start Date: 03/13/20 Stop Date: 03/08/21 Status: Ordered montelukast 10 mg oral tablet 1, tablet, By Mouth, Daily, # 90 tablet, Refills 2, Tot. Refills 0, Maintenance, 10/05/20 15:45:00 EST, Route to Pharmacy Electronically, [facility] 15477, 156, cm, 03/13/20 10:31:00 EDT, Height, 78.8, [...] each, 0 Refills, Maintenance, 09/14/20 8:47:00 EST, [facility]/pharmacy #2476, 1 puffs Inhalation 2 times a [...]
--- OUTSIDE RECORDS SUMMARY | 2024-07-15 15:37 | XMS_ITS | Continuity of Care Document ---
Author Organization [facility] Address [address] [place] [address]- Care Team Providers Care Ironworker Foreman Name Role Phone Santi James MD Primary Care Physician [place] [facility] [place] [facility] [address] [place], [place] [address] Attending Physician: Billie Hayden DO Allergies, Adverse [...] (Td) 11/03/99 Given 1Admin Note: done @ [facility],form received 2Result Comment: [07/31/2015] [facility] 3Admin Note: done @ [facility] 4Admin Note: vis sheet given. 5Admin Note: work 6Admin Note: given at [facility] 7Admin Note: per pt, done at [facility] 8Admin Note: done @ [facility], form received 9Admin Note: given at work 10Admin Note: given in the fall 11Result Comment: [id number] 12Result Comment: [08/31/2018] [id number] 13Result Comment: [08/24/2015] given w/out incident 14Admin Note: per pt 15Admin Note: [facility] Medications acetaminophen 650 mg oral tablet, extended release 1 tablet, By Mouth, Every 8 hours, PRN NEEDED FOR PAIN, # 90 tablet, 3 Refills, [facility] 59252,156, cm, 04/04/22 7:36:00 EDT, Height, 78.9, kg, 04/04/22 7:36:00 EDT, Dry Weight Start Date: 04/08/22 Status: Ordered Albuterol (Eqv-ProAir HFA) 90 mcg/inh inhalation aerosol 2 puffs, Inhalation, Every 6 hours, PRN Wheezing/Shortness of Breath, # 6.7 Gm, 11 Refills, Maintenance, 02/26/22 9:18:00 EDT, [facility]/pharmacy #[id number], Partial fill upon patient [...] each, 4 Refills, Maintenance, 02/07/22 12:08:00 EDT, [place], [facility]/pharmacy #[id number], Partial fill upon patient request if the prescription is for a schedule II opioid drug., 1 sprays Nares... Start Date: 02/07/22 Stop Date: 07/07/22 Status: Ordered cetirizine 10 mg oral tablet 1 tablet, By Mouth, Daily, # 90 tablet, 3 Refills, [facility] 73145, 156, cm, 03/18/22 8:26:00 EDT, Height Start [...] 0 Refills, Soft Stop, 06/20/22 13:59:00 EDT, Tablet,[facility]/pharmacy #[id number], Partial fill upon patient request if the prescription is for a schedule II opioid drug., 155, cm, 06/06/22 11:17:00 EDT, Height, 79... Start Date: 06/20/22 Status: Ordered fluticasone 50 mcg/inh nasal spray See Instructions, USE 1 SPRAY IN EACH NOSTRL 2 TIMES A DAY X 5 DAYS, AND THEN DAILY THEREAFTER, # 48 mL, 1 Refills, [facility] 04693, 90, USE 1 SPRAY IN EACH NOSTRL 2 TIMES A DAY X 5 DAYS, AND THEN DAILY THEREAFTER, 156, cm, 04/04/22 7:36:00 EDT, Heigh... Start Date: 04/30/22 Status: Ordered levothyroxine 0.05 mg oral tablet See Instructions, TAKE 1 TABLET BY MOUTH EVERY DAY, # 90 tablet, 1 Refills, [facility] 37251, 156, cm, 02/07/22 11:31:00 EDT, Height Start Date: 02/19/22 Status: Ordered loratadine 10 mg oral tablet 10 mg, 1, tablet, By Mouth, Daily, # 30 tablet, Refills 11, Tot. Refills 11, Maintenance, 02/26/22 9:18:00 EDT, Route to Pharmacy Electronically, [facility]/pharmacy #[id number], Partial fill upon patient requestif [...] 02/26/22 9:18:00 EDT, Route to Pharmacy Electronically, [facility]/pharmacy #[id number], Partial fill upon patient requestif [...] 9:18:00 EDT, Aerosol, Route to Pharmacy Electronically, [id number]... Start Date: 02/26/22 Status: Ordered Vitamin D3 [...] pack/packet, 0 Refills, Maintenance, 06/17/22 17:01:00 EDT, [facility]/pharmacy #[id number], Partial fill upon patient [...] Status Never smoker entered on: 10/12/14 Sex Care Team Personnel Name: Santi James MD Address: [address] [place] [address] Adult & Pediatric Medicine [address]
--- OUTSIDE RECORDS SUMMARY | 2024-07-15 15:37 | XMS_ITS | Continuity of Care Document ---
Author Organization [facility] Address [address] [place] [address]- Care Team Providers Care Body Mechanic Apprentice Name Role Phone Santi James MD Primary Care Physician Encounter [facility] Date(s): 05/28/24 - 06/27/24 [facility] [address] [place] [address]- Allergies, Adverse Reactions, Alerts Substance Reaction Severity [...] Refusal Reason influenza virus vaccine, inactivated 07/24/23 Intin rded influenza virus vaccine, inactivated 08/01/22 Nitin [...] (Td) 11/03/99 Given 1Admin Note: done @ [facility],form received 2Result Comment: [07/31/2015] [facility] 3Admin Note: done @ [facility] 4Admin Note: vis sheet given. 5Admin Note: work 6Admin Note: given at [facility] [place] 7Admin Note: per pt, done at [facility] 8Admin Note: done @ [facility], form received 9Admin Note: given at work 10Admin Note: given in the fall 11Result Comment: [id number] 12Result Comment: [08/31/2018] [id number] 13Result Comment: [08/24/2015] given w/out incident 14Admin [...] tablet, 3 Refills, Maintenance, 01/17/23 12:44:00 EDT, [facility] 69153, 156.15, cm, 11/29/22 14:40:00 EST, Height, 79.5, [...] 90 Unknown,1 Refills, Maintenance, 06/10/23 8:18:00 EDT, [facility] 50272, 90, USE 1 SPRAY IN BOTH NOSTRILS [...] 0 Refills, Maintenance, 05/20/24 13:48:00 EDT, Tablet, [facility]/pharmacy #[id number], Partial fill upon patient request if the prescription is for a schedule... Start Date: 05/20/24 Status: Ordered EpiPen 2-Tramaine 0.3 mg injectable kit = 0.3 mg, Intramuscular, Once, PRN Anaphylactic Reaction, may repeat if necessary, # 1 each, 11 Refills, Soft Stop, 03/14/23 15:31:00 EDT, [facility]/pharmacy #[id number], Partial fill upon patient request if theprescription is for a schedule II opioid drug., 155... Start Date: 03/14/23 Status: Ordered fexofenadine 180 mg oral tablet 1 tablet = 180 mg, By Mouth, Daily, PRN for allergy symptoms, # 90 tablet, 4 Refills, Maintenance, 09/02/23 11:04:00 EDT, Tablet, [facility]/pharmacy #2476, Partial fill upon patient request if the prescription is for a schedule II opioid drug., 155, cm, ... Start Date: 09/02/23 Stop Date: 11/25/24 Status: Ordered ibuprofen 800 mg oral tablet See Instructions, PLEASE SEE ATTACHED FOR DETAILED DIRECTIONS, # 90 tablet, Refills 2, Maintenance,06/25/24 16:54:00 EDT, Instructions Replace Required Details, [facility], 155, cm, 05/24/24 13:16:00 EDT, Height... Start Date: 06/25/24 Status: Ordered levothyroxine 0.05 mg oral tablet 1 tablet, By Mouth, Daily, # 90 tablet, 3 Refills, Maintenance, 08/12/23 15:31:00 EDT, [facility]/pharmacy#2476, 155, cm, 08/12/23 15:09:00 EDT, Height, 83.9, kg, 03/13/23 4:46:00 EDT, Dry Weight Start Date: 08/12/23 Stop Date: 08/06/24 Status: Ordered montelukast 10 mg oral tablet 1, tablet, By Mouth, Daily, # 90 tablet, Refills 3, Maintenance, 11/23/23 8:40:00 EST, Route to Pharmacy Electronically, [facility], 155, cm, 11/18/23 16:29:00 EST, Height, 83.7, [...] team information Care Team Personnel Name: Justa RECEIVING OPERATOR, Geni Orlando Position: [facility] Associate Professional Member Role: Primary Care Nurse Name: Talia Matute RN Position: [facility] RN Member Role: Primary Care Nurse Name: Darshan Benz RN Position: [facility] Outreach Member Role: Primary Care Nurse Name: Santi James MD Position: [facility] Physician - Primary Care Member Role: PCP Address: Address: [address] [place] [address] Adult & [place] [address]- Care Team Related Persons Name: PITER BAILEY Address: home [address] [place] [address] Name: DELMIS ADAMS Address: [place] [address] Name: RUPERT PALMER Address: [address] [place] [address] Name: DESIRAE CHAUDHARY Address: home [address] [place], [place]
--- OUTSIDE RECORDS SUMMARY | 2024-07-15 15:37 | XMS_ITS | Continuity of Care Document ---
Author Organization [facility] Address [address] [place] [address]- Care Team Providers Care Animal Breeder Name Role Phone Santi James MD Primary Care Physician [place] [facility] [place] 04[place]04/22 [facility] [address] [place] [id number] Allergies, Adverse Reactions, Alerts Substance Reaction [...] (Td) 11/03/99 Given 1Admin Note: done @ [facility],form received 2Result Comment: [07/31/2015] [facility] 3Admin Note: done @ [facility] 4Admin Note: vis sheet given. 5Admin Note: work 6Admin Note: given at [facility] [place] 7Admin Note: per pt, done at [facility] 8Admin Note: done @ [facility], form received 9Admin Note: given at work 10Admin Note: given in the fall 11Result Comment: [id number] 12Result Comment: [08/31/2018] [id number] 13Result Comment: [08/24/2015] given w/out incident 14Admin Note: per pt 15Admin Note: [facility] Medications Albuterol (Eqv-ProAir HFA) 90 mcg/inh inhalation aerosol 2 puffs, Inhalation, Every 6 hours, PRN Wheezing/Shortness of Breath, # 6.7 Gm, 11 Refills, Maintenance, 02/26/22 9:18:00 EDT, [facility]/pharmacy #[id number], Partial fill upon patient request if the [...] each, 4 Refills, Maintenance, 02/07/22 12:08:00 EDT, [place], [facility]/pharmacy #2476, Partial fill upon patient request if the prescription is for a schedule II opioid drug., 1 sprays Nares... Start Date: 02/07/22 Stop Date: 07/07/22 Status: Ordered cetirizine 10 mg oral tablet 1 tablet, By Mouth, Daily, # 90 tablet, 3 Refills, [facility], 156, cm, 03/18/22 8:26:00 EDT, Height Start [...] 16 Gm,6 Refills, Maintenance, 11/06/21 10:21:00 EST, [place], [facility], Partial fill upon patientrequest if the prescription is for a schedule II op... Start Date: 11/06/21 Status: Ordered levothyroxine 0.05 mg oral tablet See Instructions, TAKE 1 TABLET BY MOUTH EVERY DAY, # 90 tablet, 1 Refills, [facility] 26122, 156, cm, 02/07/22 11:31:00 EDT, Height Start Date: 02/19/22 Status: Ordered loratadine 10 mg oral tablet 10 mg, 1, tablet, By Mouth, Daily, # 30 tablet, Refills 11, Tot. Refills 11, Maintenance, 02/26/22 9:18:00 EDT, Route to Pharmacy Electronically, [facility]/pharmacy #2476, Partial fill upon patient [...] 02/26/22 9:18:00 EDT, Route to Pharmacy Electronically, [facility]/pharmacy #[id number], Partial fill upon patient requestif the prescription is for a schedule II opioid lauro... Start Date: 02/26/22 Status: Ordered Symbicort 160mcg/4.5mcg Inhaler 2, puffs, Inhalation, 2 times a day, in the morning and the evening use with spacer chamber rinse mouth and throat after use, # 54 Gm, Refills 12, Tot. Refills 12, Maintenance, 02/26/22 9:18:00 EDT, Aerosol, Route to Pharmacy Electronically, [id number]... Start Date: 02/26/22 Status: Ordered Vitamin D3 [...]
--- OUTSIDE RECORDS SUMMARY | 2024-07-15 15:38 | XMS_ITS | Continuity of Care Document ---
Author Organization [facility] Address [address] [place] [address]- Care Team Providers Care Mold Shifter Name Role Phone Santi James MD Primary Care Physician Encounter [facility] Date(s): 06/20/22 - 07/20/22 [facility] [address] [place], [place] [address] Allergies, Adverse Reactions, Alerts Substance [...] (Td) 11/03/99 Given 1Admin Note: done @ [facility],form received 2Result Comment: [07/31/2015] [facility] 3Admin Note: done @ [facility] 4Admin Note: vis sheet given. 5Admin Note: work 6Admin Note: given at [facility] [place] 7Admin Note: per pt, done at [facility] 8Admin Note: done @ [facility], form received 9Admin Note: given at work 10Admin Note: given in the fall 11Result Comment: [id number] 12Result Comment: [08/31/2018] [id number] 13Result Comment: [08/24/2015] given w/out incident 14Admin Note: per pt 15Admin Note: [facility] Medications acetaminophen 650 mg oral tablet, extended release 1 tablet, By Mouth, Every 8 hours, PRN NEEDED FOR PAIN, # 90 tablet, 3 Refills, [facility] ST[facility] 03184,156, cm, 04/04/22 7:36:00 EDT, Height, 78.9, kg, 04/04/22 7:36:00 EDT, Dry Weight Start Date: 04/08/22 Status: Ordered Albuterol (Eqv-ProAir HFA) 90 mcg/inh inhalation aerosol 2 puffs, Inhalation, Every 6 hours, PRN Wheezing/Shortness of Breath, # 6.7 Gm, 11 Refills, Maintenance, 02/26/22 9:18:00 EDT, [facility]/pharmacy #2476, Partial fill upon patient [...] each, 4 Refills, Maintenance, 02/07/22 12:08:00 EDT, [place], [facility]/pharmacy #2476, Partial fill upon patient request if the prescription is for a schedule II opioid drug., 1 sprays Nares... Start Date: 02/07/22 Stop Date: 07/07/22 Status: Ordered cetirizine 10 mg oral tablet 1 tablet, By Mouth, Daily, # 90 tablet, 3 Refills, [facility] 41905, 156, cm, 03/18/22 8:26:00 EDT, Height Start [...] 0 Refills, Soft Stop, 06/20/22 13:59:00 EDT, Tablet,[facility]/pharmacy #2066, Partial fill upon patient request if the prescription is for a schedule II opioid drug., 155, cm, 06/06/22 11:17:00 EDT, Height, 79... Start Date: 06/20/22 Status: Ordered fluticasone 50 mcg/inh nasal spray See Instructions, USE 1 SPRAY IN EACH NOSTRL 2 TIMES A DAY X 5 DAYS, AND THEN DAILY THEREAFTER, # 48 mL, 1 Refills, [facility] 05590, 90, USE 1 SPRAY IN EACH NOSTRL 2 TIMES A DAY X 5 DAYS, AND THEN DAILY THEREAFTER, 156, cm, 04/04/22 7:36:00 EDT, Heigh... Start Date: 04/30/22 Status: Ordered levothyroxine 0.05 mg oral tablet See Instructions, TAKE 1 TABLET BY MOUTH EVERY DAY, # 90 tablet, 1 Refills, [facility] 77599, 156, cm, 02/07/22 11:31:00 EDT, Height Start Date: 02/19/22 Status: Ordered loratadine 10 mg oral tablet 10 mg, 1, tablet, By Mouth, Daily, # 30 tablet, Refills 11, Tot. Refills 11, Maintenance, 02/26/22 9:18:00 EDT, Route to Pharmacy Electronically, [facility]/pharmacy #2476, Partial fill upon patient [...] 02/26/22 9:18:00 EDT, Route to Pharmacy Electronically, [facility]/pharmacy #2476, Partial fill upon patient [...] 9:18:00 EDT, Aerosol, Route to Pharmacy Electronically, [id number]... Start Date: 02/26/22 Status: Ordered Vitamin D3 [...] Team Personnel Name: Santi James MD Address: [address] [place] [address] Adult & Pediatric Medicine [address]
--- OUTSIDE RECORDS SUMMARY | 2024-07-15 15:38 | XMS_ITS | Continuity of Care Document ---
Author Organization [facility] Address [address] [place] [address]- Care Team Providers Care Customer Support Specialist Name Role Phone Santi James MD Primary Care Physician [facility]counter [facility] Date(s): 06/15/21 - 06/22/21 [facility] [address] [place], [place] [address] Attending Physician: Santi James MD Allergies, Adverse [...] (Td) 11/03/99 Given 1Admin Note: done @ [facility], form received 2Admin Note: done @ [facility],form received 3Result Comment: [07/31/2015] [facility] 4Admin Note: done @ [facility] 5Admin Note: vis sheet given. 6Admin Note: work 7Admin Note: given at [facility] in [place] 8Admin Note: per pt, done at [facility] 9Admin Note: given at work 10Admin Note: given in the fall 11Result Comment: [id number] 12Result Comment: [08/31/2018] [id number] 13Result Comment: [08/24/2015] given w/out incident 14Admin Note: per pt 15Admin Note: [facility] Medications acetaminophen 650 mg oral tablet, extended release 1 tablet = 650 mg, By Mouth, Every 8 hours, PRN Pain , Moderate, for 30 days, # 90 tablet, 7 Refills, Acute 10/24/21 12:47:00 EST, 02/26/21 12:47:00 EDT, ER Tablet, [facility] #[id number], 156, cm, 03/13/20 10:31:00 EDT, Height, 78.8, kg, ... Start Date: 02/26/21 Stop Date: 10/24/21 Status: Ordered albuterol 0.083% inhalation solution 3 mL = 2.5 mg, Inhalation, Every 6 hours, PRN for wheezing, Dx: asthma, # 100 each, 4 Refills, Maintenance, 12/01/19 12:54:00 EST, Solution, [facility]/pharmacy #2476, 156, cm, 12/01/19 12:40:00 EST, Height, 79.6, kg, 03/10/19 14:10:00 EDT, Dry Weight Start Date: 12/01/19 Stop Date: 04/29/20 Status: Ordered albuterol CFC free 90 mcg/inh inhalation aerosol 2, puffs, Inhalation, Every 4 hours, PRN, # 1 each, Refills 3, Tot. Refills 3, Maintenance, 03/13/21 8:25:00 EDT, Aerosol, Route to Pharmacy Electronically, [id number], [facility] #[id number], 156, cm, 03/13/21 8:16:00 E... Start Date: [...] 3 Refills, Maintenance, 03/13/21 8:26:00 EDT, Tablet, [facility] #[id number], 156, cm, 03/13/21 8:16:00 EDT, Height, 78.8, [...] mL, 0 Refills, Maintenance, 07/25/20 16:52:00 EDT, [place], [facility]/pharmacy #2306, 2 sprays Nares, Both 2 times a day, 156, cm, 03/13/20 10:31:00 EDT, Height, 78.8, kg, 12/20/19 10:35:00 EST, Dry Weight Start Date: 07/25/20 Status: Ordered levothyroxine 0.05 mg oral tablet 1 tablet = 50 mcg, By Mouth, Daily, # 90 tablet, 3 Refills, Maintenance, 03/13/21 8:24:00 EDT, Tablet, [facility] #55727, 156, cm, 03/13/21 8:16:00 EDT, Height, 78.8, kg, 12/20/19 10:35:00 EST, Dry Weight Start Date: 03/13/21 Stop Date: 03/08/22 Status: Ordered montelukast 10 mg oral tablet 1, tablet, By Mouth, Daily, # 90 tablet, Refills 2, Tot. Refills 0, Maintenance, 10/05/20 15:45:00 EST, Route to Pharmacy Electronically, [facility] 20075, 156, cm, 03/13/20 10:31:00 EDT, Height, 78.8, [...]
--- OUTSIDE RECORDS SUMMARY | 2024-07-15 15:38 | XMS_ITS | Continuity of Care Document ---
Author Organization [facility] Address [address] [place] [address]- Care Team Providers Care Hardboard Press Operator Name Role Phone Jacob DORAN, Santi Primary Care Physician [facility]counter [facility] Date(s): 11/25/22 - 12/25/22 [facility] [address] [place], [place] [address] Allergies, [...] 11/03/99 Given 1Admin Note: done @ [facility],form received 2Result Comment: [07/31/2015] [facility] 3Admin Note: done @ [facility] 4Admin Note: vis sheet given. 5Admin Note: work 6Admin Note: given at [facility] [place] 7Admin Note: per pt, done at [facility] 8Admin Note: done @ [facility], form received 9Admin Note: given at work 10Admin Note: given in the fall 11Result Comment: [id number] 12Result Comment: [08/31/2018] [id number] 13Result Comment: [08/24/2015] given w/out incident 14Admin Note: per pt 15Admin Note: [facility] Medications acetaminophen 650 mg oral tablet, extended release 1 tablet, By Mouth, Every 8 hours, PRN NEEDED FOR PAIN, # 90 tablet, 3 Refills, [facility]ORE 91898,156, cm, 04/04/22 7:36:00 EDT, Height, 78.9, kg, 04/04/22 7:36:00 EDT, Dry Weight Start Date: 04/08/22 Status: Ordered Albuterol (Eqv-ProAir HFA) 90 mcg/inh inhalation aerosol 2 puffs, Inhalation, Every 6 hours, PRN Wheezing/Shortness of Breath, # 6.7 Gm, 11 Refills, Maintenance, 08/29/22 9:07:00 EDT, [facility]/pharmacy #[id number], Partial fill upon patient [...] each, 10 Refills, Maintenance, 11/25/22 15:18:00 EST, [place], [facility]/pharmacy #[id number], replaces 0.15% dose, 1 sprays Nares, Both 2 times a day,x30 days,PRN:Other Allergies, 156.15, cm, 08/29... Start Date: 11/25/22 Stop Date: 10/21/23 Status: Ordered CPAP at 8mmHg CPAP at [...] 16 Gm, 11 Refills, 08/29/22 9:07:00 EDT, [facility]/pharmacy #[id number], USE 1 SPRAY IN EACH NOSTRL 2 TIMES A DAYX 5 DAYS, AND THEN DAILY THEREAFTER, 156.15, cm, 10... Start Date: 08/29/22 Status: Ordered levothyroxine 0.05 mg oral tablet See Instructions, TAKE 1 TABLET BY MOUTH EVERY DAY, # 90 tablet, 1 Refills, 09/01/22 19:54:00 EDT, [facility]/pharmacy #2476, 156.15, cm, 08/29/22 8:44:00 EDT, Height, 79.5, kg, 06/06/22 11:17:00 EDT, Dry Weight Start Date: 09/01/22 Status: Ordered loratadine 10 mg oral tablet 10 mg, 1, tablet, By Mouth, Daily, # 30 tablet, Refills 11, Tot. Refills 11, Maintenance, 08/29/22 9:07:00 EDT, Route to Pharmacy Electronically, [facility]/pharmacy #[id number], Partial fill upon patient [...] 1 each, 11 Refills, Maintenance, 11/28/2314:07:00 EST, [facility], Partial fill upon patient [...] 08/29/22 9:07:00 EDT, Route to Pharmacy Electronically, [facility]/pharmacy #[id number], Partial fill upon patient requestif the prescription is for a schedule II opioid lauro... Start Date: 08/29/22 Status: Ordered Symbicort 160mcg/4.5mcg Inhaler 2, puffs, Inhalation, 2 times a day, in the morning and the evening use with spacer chamber rinse mouth and throat after use, # 1 each, Refills 5, Tot. Refills 5, Maintenance, 10/17/22 10:03:00 EST, Aerosol, Route to Pharmacy Electronically, [id number]... Start Date: 10/17/22 Status: Ordered Vitamin D3 [...] Hyperglycemia Confirmed 04/03/22 Active Hypercholesterolemia Confirmed Active Hysterectomy - for [...] Team Personnel Name: Geni Marr NP Position: [facility] Associate Professional Member Role: Primary Care Nurse Address: Address: [address] [place] [address]- Name: Santi James MD Position: [facility] Primary Care Physician Member Role: PCP Address: Address: [address] [place] [address]- Care Team Related Persons Name: PITER BAILEY Address: home [address] [place] [address] Name: DELMIS ADAMS Address: [address] [place], [place] Name: RUPERT PALMER Address: home [address] [place], [place] Name: DESIRAE CHAUDHARY Address: home [address] [place], [place]
--- OUTSIDE RECORDS SUMMARY | 2024-07-15 15:38 | XMS_ITS | Continuity of Care Document ---
Author Organization [facility][1] Adult and Pedi Address [address] [place] [address]- Care Team Providers Care Internal Medicine Hospitalist Name Role Phone Santi James MD Primary Care Physician Encounter [facility] Date(s): 02/05/22 - 03/07/22 [facility][1] Adult and Pedi [address] [place], [place] [address] Attending Physician: George Luong MD Referring Physician: Santi James MD Allergies, Adverse [...] 11/03/99 Given 1Admin Note: done @ [facility],form received 2Result Comment: [07/31/2015] [facility] 3Admin Note: done @ [facility] 4Admin Note: vis sheet given. 5Admin Note: work 6Admin Note: given at [facility] in [place] 7Admin Note: per pt, done at [facility] 8Admin Note: done @ [facility], form received 9Admin Note: given at work 10Admin Note: given in the fall 11Result Comment: [id number] 12Result Comment: [08/31/2018] [id number] 13Result Comment: [08/24/2015] given w/out incident 14Admin Note: per pt 15Admin Note: [facility] Medications Albuterol (Eqv-ProAir HFA) 90 mcg/inh inhalation aerosol 2 puffs, Inhalation, Every 6 hours, PRN Wheezing/Shortness of Breath, # 6.7 Gm, 11 Refills, Maintenance, 02/26/22 9:18:00 EDT, [facility]/pharmacy #[id number], Partial fill upon patient request if the [...] each, 4 Refills, Maintenance, 02/07/22 12:08:00 EDT, [place], [facility]/pharmacy #[id number], Partial fill upon patient request if the prescription is for a schedule II opioid drug., 1 sprays Nares... Start Date: 02/07/22 Stop Date: 07/07/22 Status: Ordered CPAP at 8mmHg CPAP at [...] 16 Gm,6 Refills, Maintenance, 11/06/21 10:21:00 EST, [place], [facility]/pharmacy #[id number], Partial fill upon patientrequest if the prescription is for a schedule II op... Start Date: 11/06/21 Status: Ordered levothyroxine 0.05 mg oral tablet See Instructions, TAKE 1 TABLET BY MOUTH EVERY DAY, # 90 tablet, 1 Refills, [facility] STORE 47860, 156, cm, 02/07/22 11:31:00 EDT, Height Start Date: 02/19/22 Status: Ordered loratadine 10 mg oral tablet 10 mg, 1, tablet, By Mouth, Daily, # 30 tablet, Refills 11, Tot. Refills 11, Maintenance, 02/26/22 9:18:00 EDT, Route to Pharmacy Electronically, [facility]/pharmacy #[id number], Partial fill upon patient requestif the prescription is for a schedule II opioid lauro... Start Date: 02/26/22 Status: Ordered mepolizumab 100 mg subcutaneous injection See Instructions, 100 mg Subcutaneous Infusion. Once monthly, # 1 each, 11 Refills, Maintenance, 03/05/22 14:06:00 EDT, [facility], Partial fill upon patient request if the prescription is for a schedule II opioid drug., 156, cm, .. Start Date: 03/05/22 Status: Ordered multivitamin Multiple Vitamins oral tablet, [...] Date: 02/07/22 Stop Date: 03/09/22 Status: Ordered ProAir HFA 90 mcg/inh inhalation aerosol with adapter 2, puffs, Inhalation, Every 4 hours, PRN, # 8.5 each, Refills 4, Route to Pharmacy Electronically, [id number], [facility] STORE 52085, 156, cm, 09/04/21 8:41:00 EDT, Height, 78.8, kg, 12/20/19 10:35:00 EST, Dry Weight Start Date: 10/08/21 Status: Ordered Singulair 10 mg oral tablet 10 mg, 1, tablet, By Mouth, Daily, # 30 tablet, Refills 12, Tot. Refills 12, Maintenance, 02/26/22 9:18:00 EDT, Route to Pharmacy Electronically, [facility]/pharmacy #[id number], Partial fill upon patient requestif the prescription is for a schedule II opioid lauro... Start Date: 02/26/22 Status: Ordered Symbicort 160mcg/4.5mcg Inhaler 2, puffs, Inhalation, 2 times a day, in the morning and the evening use with spacer chamber rinse mouth and throat after use, # 54 Gm, Refills 12, Tot. Refills 12, Maintenance, 02/26/22 9:18:00 EDT, Aerosol, Route to Pharmacy Electronically, [id number]... Start Date: 02/26/22 Status: Ordered Vitamin D3 [...]
--- OUTSIDE RECORDS SUMMARY | 2024-07-15 15:38 | XMS_ITS | Continuity of Care Document ---
Author Organization [facility] Adult and Ped[facility] Address [address] [place] [address]- Care Team Providers Care Remelt Worker Name Role Phone Santi James MD Primary Care Physician Encounter [facility] Date(s): 04/05/22 - 05/05/22 [facility] [address] [place], [place] [address] Allergies, Adverse Reactions, Alerts Substance Reaction Severity Status morphine Active Lopid Muscle cramps Myalgia and myositis unspecified Active Percocet Active Lipitor Myalgia unspecified Muscle cramps Active Levaquin Hives Active Demerol Active doxycycline Hives Active nitrofurantoin Pruritus Rash Active benzonatate Speech impediment Active Biaxin Upset stomach Active Immunizations Given and Recorded Vaccine Date Status Refusal Reason SARS-CoV-2 (COVID-19) mRNA-1273 vaccine 04/15/22 R ecorded SARS-CoV-2 (COVID-19) mRNA-1273 vaccine 06/30/21 R ecorded influenza virus vaccine, inactivated 08/09/21 Niitn rded influenza virus vaccine, inactivated 07/11/20 Nitin [...] (Td) 11/03/99 Given 1Admin Note: done @ [facility],form received 2Result Comment: [07/31/2015] [facility] 3Admin Note: done @ [facility] 4Admin Note: vis sheet given. 5Admin Note: work 6Admin Note: given at [facility] [place] 7Admin Note: per pt, done at [facility] 8Admin Note: done @ [facility], form received 9Admin Note: given at work 10Admin Note: given in the fall 11Result Comment: [id number] 12Result Comment: [08/31/2018] [id number] 13Result Comment: [08/24/2015] given w/out incident 14Admin Note: per pt 15Admin Note: [facility] Medications acetaminophen 650 mg oral tablet, extended release 1 tablet, By Mouth, Every 8 hours, PRN NEEDED FOR PAIN, # 90 tablet, 3 Refills, [facility] STORE 52124,156, cm, 04/04/22 7:36:00 EDT, Height, 78.9, kg, 04/04/22 7:36:00 EDT, Dry Weight Start Date: 04/08/22 Status: Ordered Albuterol (Eqv-ProAir HFA) 90 mcg/inh inhalation aerosol 2 puffs, Inhalation, Every 6 hours, PRN Wheezing/Shortness of Breath, # 6.7 Gm, 11 Refills, Maintenance, 02/26/22 9:18:00 EDT, [facility]/pharmacy #[id number], Partial fill upon patient request [...] each, 4 Refills, Maintenance, 02/07/22 12:08:00 EDT, [place], [facility]/pharmacy #2476, Partial fill upon patient request if the prescription is for a schedule II opioid drug., 1 sprays Nares... Start Date: 02/07/22 Stop Date: 07/07/22 Status: Ordered cetirizine 10 mg oral tablet 1 tablet, By Mouth, Daily, # 90 tablet, 3 Refills, [facility] STORE 54555, 156, cm, 03/18/22 8:26:00 EDT, Height Start [...] # 1 tablet, 0 Refills, Soft Stop, 04/08/22 13:39:00 EDT, Tablet,[facility]/pharmacy #[id number], Partial fill upon patient request if the prescription is for a schedule II opioid drug., 156, cm, 04/04/22 7:36:00 EDT, Height, 78.... Start Date: 04/08/22 Status: Ordered fluticasone 50 mcg/inh nasal spray See Instructions, USE 1 SPRAY IN EACH NOSTRL 2 TIMES A DAY X 5 DAYS, AND THEN DAILY THEREAFTER, # 48 mL, 1 Refills, [facility] STORE 46649, 90, USE 1 SPRAY IN EACH NOSTRL 2 TIMES A DAY X 5 DAYS, AND THEN DAILY THEREAFTER, 156, cm, 04/04/22 7:36:00 EDT, Heigh... Start Date: 04/30/22 Status: Ordered levothyroxine 0.05 mg oral tablet See Instructions, TAKE 1 TABLET BY MOUTH EVERY DAY, # 90 tablet, 1 Refills, [facility] STORE 32025, 156, cm, 02/07/22 11:31:00 EDT, Height Start Date: 02/19/22 Status: Ordered loratadine 10 mg oral tablet 10 mg, 1, tablet, By Mouth, Daily, # 30 tablet, Refills 11, Tot. Refills 11, Maintenance, 02/26/22 9:18:00 EDT, Route to Pharmacy Electronically, [facility]/pharmacy #[id number], Partial fill upon patient requestif [...] 02/26/22 9:18:00 EDT, Route to Pharmacy Electronically, [facility]/pharmacy #[id number], Partial fill upon patient requestif [...] 9:18:00 EDT, Aerosol, Route to Pharmacy Electronically, [id number]... Start Date: 02/26/22 Status: Ordered Vitamin D3 [...] labeling, # 1 pack/packet, 0 Refills, Maintenance, 04/08/22 12:19:00 EDT, [facility]/pharmacy #[id number], Partial fill upon patient request if the prescription is for a schedule II opioid drug., 156, cm, 04/04/22 7:36:00 E... Start Date: 04/08/22 Status: Ordered Problem List Condition Effective Dates [...]
--- OUTSIDE RECORDS SUMMARY | 2024-07-15 15:38 | XMS_ITS | Continuity of Care Document ---
Author Organization [facility] Adult and Pedi Address [address] [place] [address]- Care Team Providers Care Radiopharmacist Name Role Phone Jacob DORAN, Santi Primary Care Physician [place] [facility] [place] 05/20/24 - 05/27/24 [facility] [address] [place], [place] [address] Encounter Diagnosis Sinusitis(Discharge Diagnosis) - 05/20/24 Attending Physician: Refugio Rider MD Allergies, Adverse Reactions, Alerts Substance Reaction [...] Note: given at [facility] in [place] 7Admin Note: per pt, done at [facility] 8Admin Note: done @ [facility], form received 9Admin Note: given at work 10Admin Note: given in the fall 11Result Comment: [id number] 12Result Comment: [08/31/2018] [id number] 13Result Comment: [08/24/2015] given w/out incident 14Admin [...] Refills, Maintenance, 01/17/23 12:44:00 EDT, [facility], 156.15, cm, 11/29/22 14:40:00 EST, Height, 79.5, [...] By Mouth, 2 times a day, for 7 days, with food or milk, # 14 tablet, 0 Refills, Acute 05/31/24 13:35:00 EDT, 05/24/24 13:35:00 EDT, [facility]/pharmacy #2425, Partial fill upon patient request if the prescription is for a schedule II opioid drug.,... Start Date: 05/24/24 Stop Date: 05/31/24 Status: Ordered azelastine 137 mcg/inh (0.1%) nasal spray See Instructions, USE 1 SPRAY IN BOTH NOSTRILS 2 TIMES A DAY NEEDED FOR ALLERGIES, # 90 Unknown,1 Refills, Maintenance, 06/10/23 8:18:00 EDT, [facility] STORE 24829, 90, USE 1 SPRAY IN BOTH NOSTRILS [...] 0 Refills, Maintenance, 05/20/24 13:48:00 EDT, Tablet, [id number], Partial fill upon patient request if the prescription is for a schedule... Start Date: 05/20/24 Status: Ordered EpiPen 2-Tramaine 0.3 mg injectable kit = 0.3 mg, Intramuscular, Once, PRN Anaphylactic Reaction, may repeat if necessary, # 1 each, 11 Refills, Soft Stop, 03/14/23 15:31:00 EDT, [id number], Partial fill upon patient request if theprescription is for a schedule II opioid drug., 155... Start Date: 03/14/23 Status: Ordered fexofenadine 180 mg oral tablet 1 tablet = 180 mg, By Mouth, Daily, PRN for allergy symptoms, # 90 tablet, 4 Refills, Maintenance, 09/02/23 11:04:00 EDT, Tablet, [id number], Partial fill upon patient [...] 04/05/24 15:20:00 EDT, [facility] to Pharmacy Electronically, [facility] Start Date: 04/05/24 Stop Date: 07/04/24 Status: [...] 11/23/23 8:40:00 EST, Route to Pharmacy Electronically, [facility] STORE 19407, 155, cm, 11/18/23 16:29:00 EST, Height, 83.7, [...] 3 Refills, Maintenance, 05/24/24 13:19:00 EDT, Aerosol, [facility]/pharmacy #2476, 155, cm, 05/24/24 13:16:00 EDT, Height, 83.7, kg, 11/06/23 9:08:00 EST, Dry Weight Start Date: 05/24/24 Stop Date: 09/21/24 Status: Ordered Vitamin D3 1000 intl units oral tablet 1 tablet = 25 mcg, By Mouth, Daily, # 90 tablet, 2 Refills, Maintenance, 01/27/24 14:50:00 EDT, Tablet, [facility]/pharmacy #2476, may use OTC formulation, 155, cm, [...] Diagnosis Diagnosis Type Effective Dates Health Status Clini sophia Service Informant Sinusitis Discharge Diagnosis 05/20/24 Social History Social History Type Response Smoking Status Never smoker entered on: 10/12/14 Sex Patient Care team information Care Team Personnel Name: Justa HARRIS, Geni [place] Position: [facility] Associate Professional Member Role: Primary Care Nurse Name: Talia Matute RN Position: [facility] RN Member Role: Primary Care Nurse Name: Darshan Benz RN Position: [facility] Outreach Member Role: Primary Care Nurse Name: Santi James MD Position: [facility] Physician - Primary Care Member Role: PCP Address: Address: [address] [place] [address] Adult [place] [address]- Care Team Related Persons Name: PITER BAILEY Address: home [address] [place] [address] Name: DELMIS ADAMS Address: [place] [address] Name: RUPERT PALMER Address: [address] [place] [address] Name: DESIRAE CHAUDHARY Address: home [address] [place], [place]
--- OUTSIDE RECORDS SUMMARY | 2024-07-15 15:38 | XMS_ITS | Continuity of Care Document ---
Author Organization [facility] Address [address] [place] [address]- Care Team Providers Care Organizational Effectiveness Consultant Name Role Phone Jacob DORAN, Santi Primary Care Physician Encounter [facility] Date(s): 08/01/23 - 08/31/23 [facility] [address] [place], [place] [address] Allergies, Adverse Reactions, Alerts Substance Reaction Severity Status morphine Active predniSONE Anaphylaxis Active Percocet Active Biaxin Upset stomach Active doxycycline Hives Active nitrofurantoin Pruritus Rash Active benzonatate Speech impediment Active Lopid Muscle cramps Myalgia and myositis unspecified Active tiZANidine Anaphylaxis Active Lipitor Myalgia unspecified Muscle cramps Active Topamax Skin rash Active Levaquin Hives Active Demerol Active Immunizations [...] 11/03/99 Given 1Admin Note: done @ [facility],form received 2Result Comment: [07/31/2015] [facility] 3Admin Note: done @ [facility] 4Admin Note: vis sheet given. 5Admin Note: work 6Admin Note: given at [facility] in [place] 7Admin Note: per pt, done at [facility] 8Admin Note: done @ [facility], form received 9Admin Note: given at work 10Admin Note: given in the fall 11Result Comment: [id number] 12Result Comment: [08/31/2018] [id number] 13Result Comment: [08/24/2015] given w/out incident 14Admin [...] Refills, Maintenance, 01/17/23 12:44:00 EDT, [facility], 156.15, cm, 11/29/22 14:40:00 EST, Height, 79.5, [...] Refills, Maintenance, 06/10/23 8:18:00 EDT, [facility], 90, USE 1 SPRAY IN BOTH NOSTRILS 2 TIMES A DAY NEEDED FOR ALLERGIES, 155, cm, ... Start Date: 06/10/23 Status: Ordered CeleBREX 100 mg oral capsule 1 capsule = 100 mg, By Mouth, 2 times a day, PRN for pain, # 60 capsule, 4 Refills, Maintenance, 08/12/23 15:29:00 EDT, Capsule, [facility]/pharmacy #6106, replaces ibuprofen, 155, cm, 08/12/23 15:09:00 EDT, [...] 11 Refills, Soft Stop, 03/14/23 15:31:00 EDT, [facility]/pharmacy #2476, Partial fill upon patient request if theprescription is for a schedule II opioid drug., 155... Start Date: 03/14/23 Status: Ordered ergocalciferol 51604 iu oral capsule 50,000 International_Units, 1, capsule, By Mouth, Every week, # 12 capsule, Refills 0, Tot. Refills0, Maintenance, 06/12/23 7:24:00 EDT, Route to Pharmacy Electronically, [facility]/pharmacy #[id number], Partialfill upon patient request [...] tablet, 3 Refills, Maintenance, 08/12/23 15:31:00 EDT, [facility]/pharmacy#2476, 155, cm, 08/12/23 15:09:00 EDT, [...] Personnel Name: Justa HARRIS, Geni [place] Position: [facility] Associate Professional Member Role: Primary Care Nurse Address: Address: [address] [place] [address] [address]- Name: Juju QIU, Talia Position: [facility] RN Member Role: Primary Care Nurse Name: Santi James MD Position: [facility] Physician - Primary Care Member Role: PCP Address: Address: [address] [place] [address] Adult & [place] [address]- Care Team Related Persons Name: PITER BAILEY Address: home [address] [place] [address] Name: DELMIS ADAMS Address: [place] [address] Name: RUPERT PALMER Address: home [address] [place] [address] Name: DESIRAE CHAUDHARY Address: home [address] [place] [address]
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
--- OUTSIDE RECORDS SUMMARY | 2024-07-15 15:38 | XMS_ITS | Continuity of Care Document ---
Author Organization [facility] Address [address] [place] [address]- Care Team Providers Care Buffer Operator Name Role Phone Santi James MD Primary Care Physician [facility] Date[facility]): 05/12/23 - 06/11/23 [facility] [address] [place], [place] [address] Allergies, Adverse Reactions, Alerts Substance Reaction Severity Status nitrofurantoin Pruritus Rash Active morphine Active Percocet Active Biaxin Upset stomach Active doxycycline Hives Active predniSONE Anaphylaxis Active benzonatate Speech impediment Active Lopid Muscle cramps Myalgia and myositis unspecified Active Topamax Skin rash Active tiZANidine Anaphylaxis [...] 11/03/99 Given 1Admin Note: done @ [facility],form received 2Result Comment: [07/31/2015] [facility] 3Admin Note: done @ [facility] 4Admin Note: vis sheet given. 5Admin Note: work 6Admin Note: given at [facility] [place] 7Admin Note: per pt, done at [facility] 8Admin Note: done @ [facility], form received 9Admin Note: given at work 10Admin Note: given in the fall 11Result Comment: [id number] 12Result Comment: [08/31/2018] [id number] 13Result Comment: [08/24/2015] given w/out incident 14Admin Note: per pt 15Admin Note: [facility] Medications acetaminophen 650 mg oral tablet, extended release 1 tablet, By Mouth, Every 8 hours, PRN NEEDED FOR PAIN, # 90 tablet, 3 Refills, Maintenance, 01/17/23 12:44:00 EDT, [facility], 156.15, cm, 11/29/22 14:40:00 EST, Height, 79.5, [...] Refills, Maintenance, 06/10/23 8:18:00 EDT, [facility], 90, USE 1 SPRAY IN BOTH NOSTRILS [...] 11 Refills, Soft Stop, 03/14/23 15:31:00 EDT, [facility]/pharmacy #2476, Partial fill upon patient request if theprescription is for a schedule II opioid drug., 155... Start Date: 03/14/23 Status: Ordered ergocalciferol 24516 iu oral capsule 50,000 International_Units, 1, capsule, By Mouth, Every week, # 12 capsule, Refills 0, Tot. Refills0, Maintenance, 04/10/23 9:13:00 EDT, Route to Pharmacy Electronically, [facility]/pharmacy #2476, Partialfill upon patient request if [...] tablet, 1 Refills, Maintenance, 03/01/23 14:21:00 EDT, [facility] STORE 76912, 156.15, cm, 11/29/22 14:40:00 EST, Height, 79.5, [...] 4 Refills, Maintenance, 03/28/23 13:04:00 EDT, Aerosol, [facility]/pharmacy #5539, replaced Proventil that is not available, 155, [...] Role: Primary Care Nurse Address: Address: [address] [place] [address]- [place] Name: Talia Matute RN Position: [facility] RN Member Role: Primary Care Nurse Name: Santi James MD Position: [facility] Physician - Primary Care Member Role: PCP Address: Address: [address] [place] [address] Adult & [place] [address]- Care Team Related Persons Name: LEO PITER Address: home [address] [place] [id number] Name: DELMIS ADAMS Address: [place] [address] Name: RUPERT PALMER Address: home [address] [place] [address] Name: DESIRAE CHAUDHARY Address: [address] [place] [address]
--- OUTSIDE RECORDS SUMMARY | 2024-07-15 15:38 | XMS_ITS | Continuity of Care Document ---
Author Organization [facility] Address [address] [place] [address]- Care Team Providers Care Field Staff Manager Name Role Phone Santi James MD Primary Care Physician [facility] Date[facility]s): 10/11/21 - 11/10/21 [facility] [address] [place], [place] [address] Allergies, Adverse Reactions, Alerts Substance [...] (Td) 11/03/99 Given 1Admin Note: done @ [facility],form received 2Result Comment: [07/31/2015] [facility] 3Admin Note: done @ [facility] 4Admin Note: vis sheet given. 5Admin Note: work 6Admin Note: given at [facility] in [place] 7Admin Note: per pt, done at [facility] 8Admin Note: done @ [facility], form received 9Admin Note: given at work 10Admin Note: given in the fall 11Result Comment: [id number] 12Result Comment: [08/31/2018] [id number] 13Result Comment: [08/24/2015] given w/out incident 14Admin [...] 3 Refills, Maintenance, 03/13/21 8:26:00 EDT, Tablet, [facility][id number], 156, cm, 03/13/21 8:16:00 EDT, Height, 78.8, [...] 16 Gm,6 Refills, Maintenance, 11/06/21 10:21:00 EST, [place], [facility], Partial fill upon patientrequest if the prescription is for a schedule II op... Start Date: 11/06/21 Status: Ordered FLUoxetine 10 mg oral capsule 1, capsule, By Mouth, Daily, # 30 capsule, Refills 5, Route to Pharmacy Electronically, [facility], 156, cm, 09/04/21 8:41:00 EDT, Height, 78.8, kg, 12/20/19 10:35:00 EST, Dry Weight Start Date: 10/22/21 Status: Ordered ipratropium nasal 21 mcg/inh spray 2 sprays, Nares, Both, 2 times a day, # 30 mL, 0 Refills, Maintenance, 07/25/20 16:52:00 EDT, [place], [facility]/pharmacy #2476, 2 sprays Nares, Both 2 times a day, 156, cm, 03/13/20 10:31:00 EDT, Height, 78.8, kg, 12/20/19 10:35:00 EST, Dry Weight Start Date: 07/25/20 Status: Ordered levothyroxine 0.05 mg oral tablet 1 tablet = 50 mcg, By Mouth, Daily, # 90 tablet, 3 Refills, Maintenance, 03/13/21 8:24:00 EDT, Tablet, [facility] #92377, 156, cm, 03/13/21 8:16:00 EDT, Height, 78.8, kg, 12/20/19 10:35:00 EST, Dry Weight Start Date: 03/13/21 Stop Date: 03/08/22 Status: Ordered montelukast 10 mg oral tablet See Instructions, TAKE 1 TABLET BY MOUTH DAILY, # 90 tablet, Refills 1, Instructions Replace Required Details, Route to Pharmacy Electronically, [facility] #36513, 156, cm, 03/13/21 8:35:00EDT, Height, 78.8, kg, [...] each, Refills 4, Route to Pharmacy Electronically, [id number], [facility], 156, cm, 09/04/21 8:41:00 EDT, Height, 78.8, kg, 12/20/19 10:35:00 EST, Dry Weight Start Date: 10/08/21 Status: Ordered Symbicort 160mcg/4.5mcg Inhaler 2, puffs, Inhalation, 2 times a day, in the morning and the evening use with spacer chamber rinse mouth and throat after use, # 54 Gm, Refills 12, Tot. Refills 12, Maintenance, 09/04/21 9:38:00 EDT, Aerosol, Route to Pharmacy Electronically, [id number]... Start Date: 09/04/21 Status: Ordered Zithromax Z-Tramaine 250 mg oral tablet See Instructions, as directed on package labeling, # 1 pack/packet, 0 Refills, Maintenance, 10/11/21 17:06:00 EST, [facility]/pharmacy #2476, Partial fill upon patient request if [...]
--- OUTSIDE RECORDS SUMMARY | 2024-07-15 15:38 | XMS_ITS | Continuity of Care Document ---
Author Organization [facility] Address [address] [place] [address]- Care Team Providers Care Picking Supervisor Name Role Phone Santi James MD Primary Care Physician [facility] Date[facility]s): 04/05/22 - 05/05/22 [facility] [address] [place], [place] [address] Attending Physician: Admtr, Ar8 Allergies, [...] 11/03/99 Given 1Admin Note: done @ [facility],form received 2Result Comment: [07/31/2015] [facility] 3Admin Note: done @ [facility] 4Admin Note: vis sheet given. 5Admin Note: work 6Admin Note: given at [facility] 7Admin Note: per pt, done at [facility] 8Admin Note: done @ [facility], form received 9Admin Note: given at work 10Admin Note: given in the fall 11Result Comment: [id number] 12Result Comment: [08/31/2018] [id number] 13Result Comment: [08/24/2015] given w/out incident 14Admin Note: per pt 15Admin Note: [facility] Medications acetaminophen 650 mg oral tablet, extended release 1 tablet, By Mouth, Every 8 hours, PRN NEEDED FOR PAIN, # 90 tablet, 3 Refills, [facility] 90626,156, cm, 04/04/22 7:36:00 EDT, Height, 78.9, kg, 04/04/22 7:36:00 EDT, Dry Weight Start Date: 04/08/22 Status: Ordered Albuterol (Eqv-ProAir HFA) 90 mcg/inh inhalation aerosol 2 puffs, Inhalation, Every 6 hours, PRN Wheezing/Shortness of Breath, # 6.7 Gm, 11 Refills, Maintenance, 02/26/22 9:18:00 EDT, [facility]/pharmacy #2476, Partial fill upon patient request if [...] each, 4 Refills, Maintenance, 02/07/22 12:08:00 EDT, [place], [facility]/pharmacy #2476, Partial fill upon patient request if the prescription is for a schedule II opioid drug., 1 sprays Nares... Start Date: 02/07/22 Stop Date: 07/07/22 Status: Ordered cetirizine 10 mg oral tablet 1 tablet, By Mouth, Daily, # 90 tablet, 3 Refills, [facility] 10956, 156, cm, 03/18/22 8:26:00 EDT, Height Start [...] 0 Refills, Soft Stop, 04/08/22 13:39:00 EDT, Tablet,[facility]/pharmacy #2476, Partial fill upon patient request if the prescription is for a schedule II opioid drug., 156, cm, 04/04/22 7:36:00 EDT, Height, 78.... Start Date: 04/08/22 Status: Ordered fluticasone 50 mcg/inh nasal spray See Instructions, USE 1 SPRAY IN EACH NOSTRL 2 TIMES A DAY X 5 DAYS, AND THEN DAILY THEREAFTER, # 48 mL, 1 Refills, [facility] 67844, 90, USE 1 SPRAY IN EACH NOSTRL 2 TIMES A DAY X 5 DAYS, AND THEN DAILY THEREAFTER, 156, cm, 04/04/22 7:36:00 EDT, [place]... Start Date: 04/30/22 Status: Ordered levothyroxine 0.05 mg oral tablet See Instructions, TAKE 1 TABLET BY MOUTH EVERY DAY, # 90 tablet, 1 Refills, [facility] 38383, 156, cm, 02/07/22 11:31:00 EDT, Height Start Date: 02/19/22 Status: Ordered loratadine 10 mg oral tablet 10 mg, 1, tablet, By Mouth, Daily, # 30 tablet, Refills 11, Tot. Refills 11, Maintenance, 02/26/22 9:18:00 EDT, Route to Pharmacy Electronically, [facility]/pharmacy #2476, Partial fill upon patient requestif the [...] 9:18:00 EDT, Route to Pharmacy Electronically, [facility]/pharmacy #2476, Partial fill upon patient requestif the prescription is for a schedule II opioid lauro... Start Date: 02/26/22 Status: Ordered Symbicort 160mcg/4.5mcg Inhaler 2, puffs, Inhalation, 2 times a day, in the morning and the evening use with spacer chamber rinse mouth and throat after use, # 54 Gm, Refills 12, Tot. Refills 12, Maintenance, 02/26/22 9:18:00 EDT, Aerosol, Route to Pharmacy Electronically, [id number]... Start Date: 02/26/22 Status: Ordered Vitamin D3 [...] pack/packet, 0 Refills, Maintenance, 04/08/22 12:19:00 EDT, [facility]/pharmacy #2476, Partial fill upon patient request if [...]
--- OUTSIDE RECORDS SUMMARY | 2024-07-15 15:38 | XMS_ITS | Continuity of Care Document ---
Author Organization [facility] Address [address] [place] [address] [address] [place] [address]- Care Team Providers Care Business Services Clerk Name Role Phone Santi James MD Primary Care Physician [facility]counter [facility] Date(s): 01/01/23 - 03/29/[address] [place] [address]- Attending Physician: Samir Ledezma MD Referring Physician: Santi James MD Allergies, [...] 11/03/99 Given 1Admin Note: done @ [facility],form received 2Result Comment: [07/31/2015] [facility] 3Admin Note: done @ [facility] 4Admin Note: vis sheet given. 5Admin Note: work 6Admin Note: given at [facility] in [place] 7Admin Note: per pt, done at [facility] 8Admin Note: done @ [facility], form received 9Admin Note: given at work 10Admin Note: given in the fall 11Result Comment: [id number] 12Result Comment: [08/31/2018] [id number] 13Result Comment: [08/24/2015] given w/out incident 14Admin Note: per pt 15Admin Note: [facility] Medications acetaminophen 650 mg oral tablet, extended release 1 tablet, By Mouth, Every 8 hours, PRN NEEDED FOR PAIN, # 90 tablet, 3 Refills, Maintenance, 01/17/23 12:44:00 EDT, [facility], 156.15, cm, 11/29/22 14:40:00 EST, Height, 79.5, [...] each, 10 Refills, Maintenance, 11/25/22 15:18:00 EST, [place], [facility]/pharmacy #2476, replaces 0.15% dose, 1 sprays [...] tablet, 1 Refills, Maintenance, 03/01/23 14:21:00 EDT, [facility] STORE 24430, 156.15, cm, 11/29/22 14:40:00 EST, Height, 79.5, [...] 4 Refills, Maintenance, 03/28/23 13:04:00 EDT, Aeros[place], [facility]/pharmacy #9106, replaced Proventil that is not available, 155, [...] Personnel Name: Justa HARRIS, Geni Orlando Position: [facility] Associate Professional Member Role: Primary Care Nurse Address: Address: [address] [place] [address] [place] [address]- Name: Talia Matute RN Position: [facility] ED RN W/OE and Tasks Member Role: Primary Care Nurse Name: Santi James MD Position: [facility] Physician - Primary Care Member Role: PCP Address: Address: [address] [place] [address] Adult & [place] [address]- Care Team Related Persons Name: PITER BAILEY Address: home [address] [place] [address] Name: DELMIS ADAMS Address: home [place], [place] Name: RUPERT PALMER Address: home [address] [place], [place] Name: DESIRAE CHAUDHARY Address: home [address] [place], [place]
--- OUTSIDE RECORDS SUMMARY | 2024-07-15 15:38 | XMS_ITS | Continuity of Care Document ---
Author Organization [facility] Address [address] [place] [address]- Care Team Providers Care Insolvency Consultant Name Role Phone Jacob DORAN, Santi Primary Care Physician Encounter [facility] Date(s): 03/11/22 - 04/10/22 [facility] [address] [place], [place] [address] Allergies, Adverse Reactions, Alerts Substance Reaction [...] 11/03/99 Given 1Admin Note: done @ [facility],form received 2Result Comment: [07/31/2015] [facility] 3Admin Note: done @ [facility] 4Admin Note: vis sheet given. 5Admin Note: work 6Admin Note: given at [facility] in [place] 7Admin Note: per pt, done at [facility] 8Admin Note: done @ [facility], form received 9Admin Note: given at work 10Admin Note: given in the fall 11Result Comment: [id number] 12Result Comment: [08/31/2018] [id number] 13Result Comment: [08/24/2015] given w/out incident 14Admin Note: per pt 15Admin Note: mass [employer] Medications acetaminophen 650 mg oral tablet, extended release 1 tablet, By Mouth, Every 8 hours, PRN NEEDED FOR PAIN, # 90 tablet, 3 Refills, [facility] 36460,156, cm, 04/04/22 7:36:00 EDT, Height, 78.9, kg, 04/04/22 7:36:00 EDT, Dry Weight Start Date: 04/08/22 Status: Ordered Albuterol (Eqv-ProAir HFA) 90 mcg/inh inhalation aerosol 2 puffs, Inhalation, Every 6 hours, PRN Wheezing/Shortness of Breath, # 6.7 Gm, 11 Refills, Maintenance, 02/26/22 9:18:00 EDT, [facility]/pharmacy #2476, Partial fill upon patient request if [...] each, 4 Refills, Maintenance, 02/07/22 12:08:00 EDT, [place], [facility]/pharmacy #2476, Partial fill upon patient request if the prescription is for a schedule II opioid drug., 1 sprays Nares... Start Date: 02/07/22 Stop Date: 07/07/22 Status: Ordered cetirizine 10 mg oral tablet 1 tablet, By Mouth, Daily, # 90 tablet, 3 Refills, [facility] 66175, 156, cm, 03/18/22 8:26:00 EDT, Height Start [...] 0 Refills, Soft Stop, 04/08/22 13:39:00 EDT, Tablet,[facility]/pharmacy #2476, Partial fill upon patient request if the prescription is for a schedule II opioid drug., 156, cm, 04/04/22 7:36:00 EDT, Height, 78.... Start Date: 04/08/22 Status: Ordered Flonase 50 mcg/inh nasal spray 1 sprays, Nares, Both, 2 times a day, in each nostril X 5 Days, and then daily thereafter, # 16 Gm,6 Refills, Maintenance, 11/06/21 10:21:00 EST, [place], [facility]/pharmacy #2476, Partial fill upon patientrequest if the prescription is for a schedule II op... Start Date: 11/06/21 Status: Ordered levothyroxine 0.05 mg oral tablet See Instructions, TAKE 1 TABLET BY MOUTH EVERY DAY, # 90 tablet, 1 Refills, [facility], 156, cm, 02/07/22 11:31:00 EDT, Height Start Date: 02/19/22 Status: Ordered loratadine 10 mg oral tablet 10 mg, 1, tablet, By Mouth, Daily, # 30 tablet, Refills 11, Tot. Refills 11, Maintenance, 02/26/22 9:18:00 EDT, Route to Pharmacy Electronically, [facility]/pharmacy #2476, Partial fill upon patient requestif the [...] 02/26/22 9:18:00 EDT, Route to Pharmacy Electronically, [facility]/pharmacy #2476, Partial fill upon patient requestif the prescription is for a schedule II opioid lauro... Start Date: 02/26/22 Status: Ordered Symbicort 160mcg/4.5mcg Inhaler 2, puffs, Inhalation, 2 times a day, in the morning and the evening use with spacer chamber rinse mouth and throat after use, # 54 Gm, Refills 12, Tot. Refills 12, Maintenance, 02/26/22 9:18:00 EDT, Aeros[place], Route to Pharmacy Electronically, [id number]... Start Date: 02/26/22 Status: Ordered Vitamin D3 [...] pack/packet, 0 Refills, Maintenance, 04/08/22 12:19:00 EDT, [facility], Partial fill upon patient [...] Active Fracture of finger of left hand(Confirmed) 3/16/15 Active Generalized osteoarthritis(Confirmed) Active History of pulmonary [...]
--- OUTSIDE RECORDS SUMMARY | 2024-07-15 15:38 | XMS_ITS | Continuity of Care Document ---
Author Organization [facility] Address [address] [place] [address]- Care Team Providers Care Mental Health Practitioner Name Role Phone Santi James MD Primary Care Physician Encounter [facility] Date(s): 11/05/19 - 02/19/[address] [facility] [address] [address]- [facility] Attending Physician: Oz Arriaga MD Admitting Physician: Oz Arriaga MD Referring Physician: Santi James MD Allergies, [...] in the fall 3Admin Note: done @ [facility], form received 4Result Comment: [id number] 5Result Comment: [08/31/2018] [id number] 6Result Comment: [08/24/2015] given w/out incident 7Admin Note: done @ [facility],form received 8Result Comment: [07/31/2015] [facility] 9Admin Note: done @ [facility] 10Admin Note: vis sheet given. 11Admin Note: work 12Admin Note: given at [facility] 13Admin Note: per pt, done at [facility] 14Admin Note: per pt 15Admin Note: [facility] Medications Aerochamber See Instructions, # 1 units, Refills 0, Tot. Refills 0, Maintenance, use with your inhalers Dx: asthma, 10/28/17 13:45:11, Compound Start Date: 10/28/17 Status: Ordered albuterol 0.083% inhalation solution 3 mL = 2.5 mg, Inhalation, Every 6 hours, PRN for wheezing, Dx: asthma, # 100 each, 4 Refills, Maintenance, 12/01/19 12:54:00 EST, [place], 156, cm, 12/01/19 12:40:00 EST, Height, 79.6, kg, 03/10/19 14:10:00 EDT, Dry Weight Start Date: 12/01/19 Stop Date: 04/29/20 Status: Ordered albuterol CFC free 90 mcg/inh inhalation aerosol 2, puffs, Inhalation, Every 4 hours, PRN, # 9 Gm, Refills 0, Tot. Refills 0, Maintenance, 10/28/17 14:12:34, Aerosol, Route to Pharmacy Electronically, [id number], [facility]/pharmacy #1972, Compound Start Date: 10/28/17 [...] 15:26:44, Compound Start Date: 01/20/18 Status: Ordered Flonase 50 mcg/inh nasal spray 2 sprays, Nares, Both, Daily, # 16 Gm, 2 Refills, Maintenance, 12/03/19 8:45:00 EST Start Date: 12/03/19 Status: Ordered FLUoxetine 20 mg oral capsule 20 mg, 1, capsule, By Mouth, Daily, # 90 capsule, Refills 1, Tot. Refills 1, Maintenance, 02/14/20 8:39:00 EDT, Route to Pharmacy Electronically, [facility]/pharmacy #[id number], increase in dose, 156, cm, 12/23/19 13:03:00 EST, Height, 78.8, kg, 12/20/19 10:35:00... Start Date: 02/14/20 Stop Date: 04/14/20 Status: Ordered levothyroxine 0.05 mg oral tablet [...] 09/13/19 13:49:27 EST, Route to Pharmacy Electronically, [id number], [facility]/pharmacy #2476 Start Date: 09/13/19 Stop Date: 05/10/20 Status: Ordered multivitamin Multiple Vitamins oral tablet, [...]
--- OUTSIDE RECORDS SUMMARY | 2024-07-15 15:38 | XMS_ITS | Continuity of Care Document ---
Author Organization [facility] Address [address] [place] [address]- Care Team Providers Care Door Hanger Name Role Phone Santi James MD Primary Care Physician [facility] Date[facility]s): 04/21/23 - 05/21/23 [facility] [address] [place], [place] [address] Allergies, Adverse Reactions, Alerts Substance [...] (Td) 11/03/99 Given 1Admin Note: done @ [facility],form received 2Result Comment: [07/31/2015] [facility] 3Admin Note: done @ [facility] 4Admin Note: vis sheet given. 5Admin Note: work 6Admin Note: given at [facility] [place] 7Admin Note: per pt, done at [facility] 8Admin Note: done @ [facility], form received 9Admin Note: given at work 10Admin Note: given in the fall 11Result Comment: [id number] 12Result Comment: [08/31/2018] [id number] 13Result Comment: [08/24/2015] given w/out incident 14Admin Note: per pt 15Admin Note: [facility] Medications acetaminophen 650 mg oral tablet, extended release 1 tablet, By Mouth, Every 8 hours, PRN NEEDED FOR PAIN, # 90 tablet, 3 Refills, Maintenance, 01/17/23 12:44:00 EDT, [facility], 156.15, cm, 11/29/22 14:40:00 EST, Height, 79.5, [...] each, 10 Refills, Maintenance, 11/25/22 15:18:00 EST, [place], [facility]/pharmacy #2476, replaces 0.15% dose, 1 sprays Nares, [...] Refills, Soft Stop, 03/14/23 15:31:00 EDT, [facility]/pharmacy #2476, Partial fill upon patient request if theprescription is for a schedule II opioid drug., 155... Start Date: 03/14/23 Status: Ordered ergocalciferol 84212 iu oral capsule 50,000 International_Units, 1, capsule, By Mouth, Every week, # 12 capsule, Refills 0, Tot. Refills0, Maintenance, 04/10/23 9:13:00 EDT, Route to Pharmacy Electronically, [facility]/pharmacy #2476, Partialfill upon patient request if the [...] Refills, Maintenance, 03/01/23 14:21:00 EDT, [facility], 156.15, cm, 11/29/22 14:40:00 EST, Height, 79.5, [...] 4 Refills, Maintenance, 03/28/23 13:04:00 EDT, Aerosol, [facility]/pharmacy #2476, replaced Proventil that is not available, [...] Member Role: Primary Care Nurse Address: Address: [address] [place] [address]- [place] Name: Talia Matute RN Position: [facility] RN Member Role: Primary Care Nurse Name: Santi James MD Position: [facility] Physician - Primary Care Member Role: PCP Address: Address: [address] [place] [address] Adult & [place] [address]- Care Team Related Persons Name: PITER BAILEY Address: home [address] [place] [address] Name: DELMIS ADAMS Address: home [place], [place] Name: RUPERT PALMER Address: home [address] [place], [place] Name: DESIRAE CHAUDHARY Address: home [address] [place], [place]
--- OUTSIDE RECORDS SUMMARY | 2024-07-15 15:39 | XMS_ITS | Continuity of Care Document ---
Author Organization [facility] Address [address] [place] [address]- Care Team Providers Care Sole Painter Name Role Phone Santi James MD Primary Care Physician [place] [facility] [place] 07/01/20 - 07/31/20 [facility] [address] [place] [address]- [facility] Allergies, Adverse Reactions, Alerts Substance Reaction Severity Status doxycycline Hives Active nitrofurantoin Pruritus Rash Active morphine Active benzonatate Speech impediment Active Zithromax gi upset Active Lopid Muscle cramps Myalgia and myositis unspecified Active Percocet Active Biaxin Upset stomach Active Lipitor Myalgia unspecified Muscle cramps Active Bactrim DS Stomach cramps Active Levaquin Hives Active Augmentin hives Active Immunizations Given and Recorded Vaccine Date [...] in the fall 3Admin Note: done @ [facility], form received 4Result Comment: [id number] 5Result Comment: [08/31/2018] [id number] 6Result Comment: [08/24/2015] given w/out incident 7Admin Note: done @ [facility],form received 8Result Comment: [07/31/2015] [facility] 9Admin Note: done @ [facility] 10Admin Note: vis sheet given. 11Admin [...] 11:12:00 EST, 03/13/20 11:12:00 EDT, ER Tablet, [facility]/pharmacy #[id number], 156, cm, 03/13/20 10:31:00 EDT, Height, 78.8, kg, 12/20/19 10:35:0... Start Date: 03/13/20 Stop Date: 11/08/20 Status: Ordered albuterol 0.083% inhalation solution 3 mL = 2.5 mg, Inhalation, Every 6 hours, PRN for wheezing, Dx: asthma, # 100 each, 4 Refills, Maintenance, 12/01/19 12:54:00 EST, Solution, [facility]/pharmacy #[id number], 156, cm, 12/01/19 12:40:00 EST, Height, 79.6, kg, 03/10/19 14:10:00 EDT, Dry Weight Start Date: 12/01/19 Stop Date: 04/29/20 Status: Ordered albuterol CFC free 90 mcg/inh inhalation aerosol 2, puffs, Inhalation, Every 4 hours, PRN, # 9 Gm, Refills 0, Tot. Refills 0, Maintenance, 10/28/17 14:12:34, Aerosol, Route to Pharmacy Electronically, [id number], [facility]/pharmacy #1972, Compound Start Date: 10/28/17 [...] 02/14/20 8:39:00 EDT, Route to Pharmacy Electronically, [facility]/pharmacy #[id number], increase in dose, 156, cm, 12/23/19 13:03:00 EST, Height, 78.8, kg, 12/20/19 10:35:00... Start Date: 02/14/20 Stop Date: 04/14/20 Status: Ordered ipratropium nasal 21 mcg/inh spray 2 sprays, Nares, Both, 2 times a day, # 30 mL, 0 Refills, Maintenance, 07/25/20 16:52:00 EDT, [place], [facility]/pharmacy #[id number], 2 sprays Nares, Both 2 times a day, 156, cm, 03/13/20 10:31:00 EDT, Height, 78.8, kg, 12/20/19 10:35:00 EST, Dry Weight Start Date: 07/25/20 Status: Ordered levothyroxine 0.05 mg oral tablet 1 tablet = 50 mcg, By Mouth, Daily, # 90 tablet, 3 Refills, Maintenance, 03/13/20 11:08:00 EDT, Tablet, [facility]/pharmacy #[id number], 156, cm, 03/13/20 10:31:00 EDT, Height, 78.8, kg, 12/20/19 10:35:00 EST, Dry Weight Start Date: 03/13/20 Stop Date: 03/08/21 Status: Ordered montelukast 10 mg oral tablet 10 mg, 1, tablet, By Mouth, Daily, # 90 tablet, Refills 1, Tot. Refills 1, Maintenance, 03/08/20 9:54:00 EDT, Route to Pharmacy Electronically, [facility]/pharmacy #[id number], 156, cm, 12/23/19 13:03:00 EST, Height, 78.8, kg, 12/20/19 10:35:00 EST, Dry Weight Start Date: 03/08/20 Stop Date: 11/03/20 Status: Ordered multivitamin Multiple Vitamins oral tablet, [...]
--- OUTSIDE RECORDS SUMMARY | 2024-07-15 15:39 | XMS_ITS | Continuity of Care Document ---
Author Organization [facility] Address [address] [place] [address]- Care Team Providers Care Contract Runner Name Role Phone Santi James MD Primary Care Physician Encounter [facility] Date(s): 12/02/23 - 01/01/24 [facility] [address] [place], [place] [address] [place] Allergies, Adverse Reactions, Alerts Substance Reaction Severity [...] (Td) 11/03/99 Given 1Admin Note: done @ [facility],form received 2Result Comment: [07/31/2015] [facility] 3Admin Note: done @ [facility] 4Admin Note: vis sheet given. 5Admin Note: work 6Admin Note: given at [facility] [place] 7Admin Note: per pt, done at [facility] 8Admin Note: done @ [facility], form received 9Admin Note: given at work 10Admin Note: given in the fall 11Result Comment: [id number] 12Result Comment: [08/31/2018] [id number] 13Result Comment: [08/24/2015] given w/out incident 14Admin [...] tablet, 3 Refills, Maintenance, 01/17/23 12:44:00 EDT, [facility], 156.15, cm, 11/29/22 14:40:00 EST, Height, 79.5, [...] 90 Unknown,1 Refills, Maintenance, 06/10/23 8:18:00 EDT, [facility] 89898, 90, USE 1 SPRAY IN BOTH NOSTRILS [...] Refills, Soft Stop, 11/06/23 9:46:00 EST, Tablet, [facility]/pharmacy #[id number], Partial fill upon patient request if the prescription is for a schedule II opioid drug., 155, cm, 11/06/23 9:08:00 EST, Height, 83.7... Start Date: 11/06/23 Status: Ordered EpiPen 2-Tramaine 0.3 mg injectable kit = 0.3 mg, Intramuscular, Once, PRN Anaphylactic Reaction, may repeat if necessary, # 1 each, 11 Refills, Soft Stop, 03/14/23 15:31:00 EDT, [facility]/pharmacy #2476, Partial fill upon patient request if theprescription is for a schedule II opioid drug., 155... Start Date: 03/14/23 Status: Ordered fexofenadine 180 mg oral tablet 1 tablet = 180 mg, By Mouth, Daily, PRN for allergy symptoms, # 90 tablet, 4 Refills, Maintenance, 09/02/23 11:04:00 EDT, Tablet, [facility]/pharmacy #[id number], Partial fill upon patient request if the prescription is for a schedule II opioid drug., 155, cm, ... Start Date: 09/02/23 Stop Date: 11/25/24 Status: Ordered fluconazole 150 mg oral tablet 1 tablet = 150 mg, By Mouth, Once, repeat dose if still having symptoms in 72 hours, # 2 tablet, 0 Refills, Soft Stop, 12/22/23 13:26:00 EST, Tablet, [facility]/pharmacy #[id number], Partial fill upon patient request if the prescription is for a schedule II opioid... Start Date: 12/22/23 Status: Ordered ibuprofen 800 mg oral tablet 1, tablet, By Mouth, 3 times a day, X30 DAYS, STOP ASPIRIN WHILE TAKING THIS., # 90 tablet, Refills1, Maintenance, 12/04/23 7:25:00 EST, Route to Pharmacy Electronically, [facility] STORE 39656, 155, cm, 11/18/23 16:29:00 EST, Height, 83.7, kg, 11/06/23 9:0... Start Date: 12/04/23 Status: Ordered levothyroxine 0.05 mg oral tablet 1 tablet, By Mouth, Daily, # 90 tablet, 3 Refills, Maintenance, 08/12/23 15:31:00 EDT, [facility]/pharmacy#2476, 155, cm, 08/12/23 15:09:00 EDT, Height, 83.9, kg, 03/13/23 4:46:00 EDT, Dry Weight Start Date: 08/12/23 Stop Date: 08/06/24 Status: Ordered montelukast 10 mg oral tablet 1, tablet, By Mouth, Daily, # 90 tablet, Refills 3, Maintenance, 11/23/23 8:40:00 EST, Route to Pharmacy Electronically, [facility] STORE 55962, 155, cm, 11/18/23 16:29:00 EST, Height, 83.7, [...] Refills, Maintenance, 03/28/23 13:04:00 EDT, Aerosol, [facility]/pharmacy #2476, replaced Proventil that is not available, 155, cm, 03/13/23 11:02:00 EDT, Height, 83.9, kg, 03/13/23 4:46:00 EDT... Start Date: 03/28/23 Stop Date: 08/25/23 Status: Ordered Zetia 10 mg oral tablet 1 tablet = 10 mg, By Mouth, Daily, # 30 tablet, 1 Refills, Maintenance, 10/28/23 10:28:00 EST, Tablet, [facility]/pharmacy #[id number], Partial fill upon patient request [...] Member Role: Primary Care Nurse Address: Address: [address] [place] [address]- Name: Talia Matute RN Position: [facility] RN Member Role: Primary Care Nurse Name: Santi James MD Position: [facility] Physician - Primary Care Member Role: PCP Address: Address: [address] [place] [address] Adult & [place] [address]- Care Team Related Persons Name: PITER BAILEY Address: home [address] [place] [address] Name: DELMIS ADAMS Address: home [place], [place] Name: RUPERT PALMER Address: home [address] [place], [place] Name: DESIRAE CHAUDHARY Address: home [address] [place], [place]
--- OUTSIDE RECORDS SUMMARY | 2024-07-15 15:39 | XMS_ITS | Continuity of Care Document ---
Author Organization [facility] Address [address] [place] [address]- Care Team Providers Care Corporate Travel Coordinator Name Role Phone Santi James MD Primary Care Physician Encounter [facility] [place] Date(s): 01/23/24 - 01/30/24 [facility] [address] [place], [place] [address] Attending Physician: Santi James MD Allergies, Adverse Reactions, Alerts Substance Reaction Severity Status morphine Active Percocet Active doxycycline Hives Active nitrofurantoin Pruritus Rash Active predniSONE Anaphylaxis Active benzonatate Speech impediment Active Lopid Muscle cramps Myalgia and myositis unspecified Active Biaxin Upset stomach Active tiZANidine Anaphylaxis Active Lipitor Myalgia unspecified [...] influenza virus vaccine, inactivated 7 08/22/08 Gi crsitel pneumococcal 20-valent conjugate vaccine 8/28/23 Recorded Measles/Mumps/Rubella Virus Vaccine 05/10/22 Recor ded [...] 5Admin Note: work 6Admin Note: given at [facility] in [place] 7Admin Note: per pt, done at [facility] 8Admin Note: done @ [facility], form received 9Admin Note: given at work 10Admin Note: given in the fall 11Result Comment: [id number] 12Result Comment: [08/31/2018] [id number] 13Result Comment: [08/24/2015] given w/out incident 14Admin [...] tablet, 3 Refills, Maintenance, 01/17/23 12:44:00 EDT, [facility] 26[facility], 156.15, cm, 11/29/22 14:40:00 EST, Height, 79.5, [...] 90 Unknown,1 Refills, Maintenance, 06/10/23 8:18:00 EDT, [facility], 90, USE 1 SPRAY IN BOTH NOSTRILS [...] Refills, Soft Stop, 11/06/23 9:46:00 EST, Tablet, [facility]/pharmacy #9962, Partial fill upon patient request if the prescription is for a schedule II opioid drug., 155, cm, 11/06/23 9:08:00 EST, Height, 83.7... Start Date: 11/06/23 Status: Ordered EpiPen 2-Tramaine 0.3 mg injectable kit = 0.3 mg, Intramuscular, Once, PRN Anaphylactic Reaction, may repeat if necessary, # 1 each, 11 Refills, Soft Stop, 03/14/23 15:31:00 EDT, [facility]/pharmacy #[id number], Partial fill upon patient request if theprescription is for a schedule II opioid drug., 155... Start Date: 03/14/23 Status: Ordered fexofenadine 180 mg oral tablet 1 tablet = 180 mg, By Mouth, Daily, PRN for allergy symptoms, # 90 tablet, 4 Refills, Maintenance, 09/02/23 11:04:00 EDT, Tablet, [facility]/pharmacy #[id number], Partial fill upon patient request if the prescription is for a schedule II opioid drug., 155, cm, ... Start Date: 09/02/23 Stop Date: 11/25/24 Status: Ordered fluconazole 150 mg oral tablet 1 tablet = 150 mg, By Mouth, Once, repeat dose if still having symptoms in 72 hours, # 2 tablet, 0 Refills, Soft Stop, 12/22/23 13:26:00 EST, Tablet, [facility]/pharmacy #[id number], Partial fill upon patient request if the prescription is for a schedule II opioid... Start Date: 12/22/23 Status: Ordered ibuprofen 800 mg oral tablet 1, tablet, By Mouth, 3 times a day, X30 DAYS, STOP ASPIRIN WHILE TAKING THIS., # 90 tablet, Refills1, Maintenance, 12/04/23 7:25:00 EST, Route to Pharmacy Electronically, [facility] STORE 52182, 155, cm, 11/18/23 16:29:00 EST, Height, 83.7, kg, 11/06/23 9:0... Start Date: 12/04/23 Status: Ordered levothyroxine 0.05 mg oral tablet 1 tablet, By Mouth, Daily, # 90 tablet, 3 Refills, Maintenance, 08/12/23 15:31:00 EDT, [facility]/pharmacy#2476, 155, cm, 08/12/23 15:09:00 EDT, Height, 83.9, kg, 03/13/23 4:46:00 EDT, Dry Weight Start Date: 08/12/23 Stop Date: 08/06/24 Status: Ordered montelukast 10 mg oral tablet 1, tablet, By Mouth, Daily, # 90 tablet, Refills 3, Maintenance, 11/23/23 8:40:00 EST, Route to Pharmacy Electronically, [facility] STORE 72355, 155, cm, 11/18/23 16:29:00 EST, Height, 83.7, [...] 4 Refills, Maintenance, 03/28/23 13:04:00 EDT, Aerosol, [facility]/pharmacy #2476, replaced Proventil that is not available, 155, cm, 03/13/23 11:02:00 EDT, Height, 83.9, kg, 03/13/23 4:46:00 EDT... Start Date: 03/28/23 Stop Date: 08/25/23 Status: Ordered Vitamin D3 1000 intl units oral tablet 1 tablet = 25 mcg, By Mouth, Daily, # 90 tablet, 2 Refills, Maintenance, 01/27/24 14:50:00 EDT, Tablet, [facility]/pharmacy #2476, may use OTC formulation, 155, cm, 01/23/24 16:41:00 EDT, Height, 83.7, kg, 11/06/23 9:08:00 EST, Dry Weight Start Date: 01/27/24 Stop Date: 10/23/24 Status: Ordered Zetia 10 mg oral tablet 1 tablet = 10 mg, By Mouth, Daily, # 30 tablet, 1 Refills, Maintenance, 10/28/23 10:28:00 EST, Tablet, [facility]/pharmacy #[id number], Partial fill upon patient request [...] Confirmed Active 1Problem added by Discern Expert Vital Signs Most recent to oldest [Reference Range]: 1 2 Height 155 cm (01/23/24 4:41 PM) 155 cm (01/23/24 4:06 PM) Weight 83 kg (01/23/24 4:06 PM) Oxygen Saturation [94-100 %] 98 % (01/23/24 4:06 PM) Pulse Rate [55-90 bpm] 64 bpm (01/23/24 4:06 PM) Body Mass Index [18.5-24.99 kg/m2] 34.55 kg/m2 *>HHI* (01/23/24 4:06 PM) Blood Pressure [90-138/55-84 mm Hg] 152/ 80mm Hg *H* (01/23/24 4:41 PM) 133/66mm Hg (01/23/24 4:06 PM) Temperature [96.8-100.4 DegF] 99.1 DegF (01/23/24 4:06 PM) Mode of Delivery (Oxygen) Room air (01/23/24 4:06 PM) Blood pressure sites Arm, left (01/23/24 4:41 PM) Arm, left (01/23/24 4:06 PM) Temperature Route Temporal (3/22/24 4:06 PM) Weight Obtained Via Standing scale (01/23/24 4:06 PM) Social History Social History Type Response Smoking Status Never smoker entered on: 10/12/14 Sex Note * Mallorie Santillan: PERFORM, SIGN, VERIFY Event Display: Patient Education/Instruction Authored Date: [id number] [facility] *No [facility] Adult Ped Clinical Summary Name INA BAILEY Age 58 Years 1965 PCP Jacob DORAN, Santi PCP Visit Date 01/23/2024 16:01:00 Additional Instructions: Scheduled Appointments?? Future Appointments ?No Future Appointments Scheduled Follow-Up Instructions ?? Diagnosis Obstructive sleep apnea (adult) (pediatric); Mild intermittent asthma, uncomplicated Medications: Please continue your medications until treatment is completed or stopped by your provider. Discuss any questions related to medications with your provider. Medications to Continue Taking That Have Changed These medications were not printed or sent to your pharmacy - Durable Medical Equipment (RAVINDRA bandage 4 inch width) apply as demonstrated once daily Dx: right gastrocnemius strain. Refills: 0. Next Dose: - Durable Medical Equipment (CPAP Machine) AutoCPAP 8-14 cm H20, use Daily when sleeping. Refills: 0. Next Dose: Medications to Continue with No [...] NEEDED FOR ALLERGIES. Refills: 1. Next Dose: EPINEPHrine (EpiPen 2-Tramaine 0.3 mg injectable kit) 0.3 Milligram Intramuscular once as needed Anaphylactic Reaction. may repeat if necessary. Refills: 11. Next Dose: Ezetimibe (Zetia 10 mg oral tablet) 1 tab(s) Oral Daily for 30 Days. Refills: 1. Next Dose: Fexofenadine (fexofenadine 180 mg oral tablet) 1 tab(s) Oral Daily as needed for allergy symptoms for 90 Days. Refills: 4. Next Dose: Fluconazole (Diflucan 150 mg oral tablet) 1 tab(s) Oral once. Refills: 0. Next Dose: Fluconazole (fluconazole 150 mg oral tablet) 1 tab(s) Oral once. repeat dose if still having symptoms in 72 hours. Refills: 0. Next Dose: Ibuprofen (ibuprofen 800 mg oral tablet) 1 tab(s) Oral 3 times a day. X30 DAYS, STOP ASPIRIN WHILE TAKING THIS.. Refills: 1. Next Dose: Levothyroxine (levothyroxine 0.05 mg oral tablet) 1 tab(s) Oral Daily for 90 Days. Refills: 3. Next Dose: Montelukast (montelukast 10 mg oral tablet) 1 tab(s) Oral Daily. Refills: 3. Next Dose: Multivitamin (multivitamin Multiple Vitamins oral tablet, chewable) 1 tab(s) Oral Daily for 30 Days. Refills: 0. Next Dose: Allergy Info:?? tiZANidine; Demerol; Levaquin; Topamax; Lipitor; Biaxin; Percocet; Lopid; benzonatate; predniSONE; morphine; nitrofurantoin; doxycycline Medications Given This Visit Future Orders ?No future orders Future Orders ?Lipid Panel? Order Date:01/23/24?- Complete within?ALT? Order Date:01/23/24?- Complete within?AST? Order Date:01/23/24?- Complete within?Thyroid Panel? Order Date:01/23/24?- Complete within?Hemoglobin A1C (Monitoring)? Order Date:01/23/24?- Complete within?Basic Metabolic Panel? Order Date:01/23/24?- Complete within?Vitamin D 25 Hydroxy Level? Order Date:01/23/24?- Complete within? Vital Signs Height 155 cm Weight 83 kg BMI 34.55 kg/m2 Blood Pressure 152 mm Hg/80 mm Hg Temperature 99.1 DegF Pulse Rate 64 bpm Respiratory Rate 02 Sat Mode of Delivery 98 %/Room air You can now view a summary of your hospital visit from the comfort of your home through a free online portal called Th[employer]ve. [employer]ve is a website that allows you to securely view your medical information including discharge summary, medications and follow-up visits. ??You can alsosend a secure electronic message to your doctor???s office to request appointments, renew medications or just ask a question. You can enroll at [email or web address] or register during your next office [...] primary care provider, you may find a [facility] provider by calling [facility] Link at [phone]. [facility], in keeping with [facility] guidance, no longer requires face [...] individualized medical care. Additional Provider Instructions: 1. monitor your BP to make sure it is less than 120/80. 2. limit your salt consumption also. 3. keep well hydrated 4. since you continue not sleep well, even with the increased pressures, then call the sleep clinicagain. 5. Patient Care team information Care Team Personnel Name: Justa HARRIS, Geni Orlando Position: [facility] Associate Professional Member Role: Primary Care Nurse Address: Address: [address] [facility] [place] [address]- [place] Name: Talia Matute RN Position: [facility] RN Member Role: Primary Care Nurse Name: Darshan Benz RN Position: [facility] Outreach Member Role: Primary Care Nurse Name: Santi James MD Position: [facility] Physician - Primary Care Member Role: PCP Address: Address: [address] [place] [address]- [place] Care Team Related Persons Name: PITER BAILEY Address: home [address] [place] [address] Name: DELMIS ADAMS Address: [place] [address] Name: RUPERT PALMER Address: [address] [place] [address] Name: DESIRAE CHAUDHARY Address: home [address] [place], [place]
--- OUTSIDE RECORDS SUMMARY | 2024-07-15 15:39 | XMS_ITS | Continuity of Care Document ---
Author Organization [facility] Address [address] [place] [address]- Care Team Providers Care Wildland Fire Fighter Name Role Phone Santi James MD Primary Care Physician [place] [facility] [place] - 08/04/20 [facility] [address] [place] [address]- [facility] Allergies, Adverse Reactions, Alerts Substance Reaction Severity Status doxycycline Hives Active nitrofurantoin Pruritus Rash Active morphine Active benzonatate Speech impediment Active Lopid Muscle cramps Myalgia and myositis unspecified Active Percocet Active Biaxin Upset stomach Active Augmentin hives Active Levaquin Hives Active Bactrim DS Stomach cramps Active Lipitor Myalgia unspecified Muscle cramps Active Zithromax gi upset Active Immunizations Given and Recorded Vaccine Date [...] in the fall 3Admin Note: done @ [facility], form received 4Result Comment: [id number] 5Result Comment: [08/31/2018] [id number] 6Result Comment: [08/24/2015] given w/out incident 7Admin Note: done @ [facility],form received 8Result Comment: [07/31/2015] [facility] 9Admin Note: done @ [facility] 10Admin Note: vis sheet given. 11Admin Note: work 12Admin Note: given at [facility] 13Admin Note: per pt, done at [facility] 14Admin Note: per pt 15Admin Note: [employer] Medications acetaminophen 650 mg oral tablet, extended release 1 tablet = 650 mg, By Mouth, Every 8 hours, PRN Pain , Moderate, for 30 days, # 90 tablet, 7 Refills, Acute 11/08/20 11:12:00 EST, 03/13/20 11:12:00 EDT, ER Tablet, [facility]/pharmacy #[id number], 156, cm, 03/13/20 10:31:00 EDT, Height, 78.8, kg, 12/20/19 10:35:0... Start Date: 03/13/20 Stop Date: 11/08/20 Status: Ordered albuterol 0.083% inhalation solution 3 mL = 2.5 mg, Inhalation, Every 6 hours, PRN for wheezing, Dx: asthma, # 100 each, 4 Refills, Maintenance, 12/01/19 12:54:00 EST, Solution, [facility]/pharmacy #[id number], 156, cm, 12/01/19 12:40:00 EST, Height, 79.6, kg, 03/10/19 14:10:00 EDT, Dry Weight Start Date: 12/01/19 Stop Date: 04/29/20 Status: Ordered albuterol CFC free 90 mcg/inh inhalation aerosol 2, puffs, Inhalation, Every 4 hours, PRN, # 9 Gm, Refills 0, Tot. Refills 0, Maintenance, 10/28/17 14:12:34, Aerosol, Route to Pharmacy Electronically, [id number], [facility]/pharmacy #1972, Compound Start Date: 10/28/17 [...] 02/14/20 8:39:00 EDT, Route to Pharmacy Electronically, [facility]/pharmacy #[id number], increase in dose, 156, cm, 12/23/19 13:03:00 EST, Height, 78.8, kg, 12/20/19 10:35:00... Start Date: 02/14/20 Stop Date: 04/14/20 Status: Ordered ipratropium nasal 21 mcg/inh spray 2 sprays, Nares, Both, 2 times a day, # 30 mL, 0 Refills, Maintenance, 07/25/20 16:52:00 EDT, [facility], [facility]/pharmacy #[id number], 2 sprays Nares, Both 2 times a day, 156, cm, 03/13/20 10:31:00 EDT, Height, 78.8, kg, 12/20/19 10:35:00 EST, Dry Weight Start Date: 07/25/20 Status: Ordered levothyroxine 0.05 mg oral tablet 1 tablet = 50 mcg, By Mouth, Daily, # 90 tablet, 3 Refills, Maintenance, 03/13/20 11:08:00 EDT, Tablet, [facility]/pharmacy #[id number], 156, cm, 03/13/20 10:31:00 EDT, Height, 78.8, kg, 12/20/19 10:35:00 EST, Dry Weight Start Date: 03/13/20 Stop Date: 03/08/21 Status: Ordered montelukast 10 mg oral tablet 10 mg, 1, tablet, By Mouth, Daily, # 90 tablet, Refills 1, Tot. Refills 1, Maintenance, 03/08/20 9:54:00 EDT, Route to Pharmacy Electronically, [facility]/pharmacy #[id number], 156, cm, 12/23/19 13:03:00 EST, Height, [...]
--- OUTSIDE RECORDS SUMMARY | 2024-07-15 15:39 | XMS_ITS | Continuity of Care Document ---
Author Organization [facility] Address [address] [place] [address]- Care Team Providers Care Field Seismologist Name Role Phone Santi James MD Primary Care Physician Encounter [facility] Date(s): 03/18/22 - 03/25/22 [facility] [address] [place], [place] [address] Encounter Diagnosis GARCIA (obstructive sleep apnea)(Discharge Diagnosis) - 03/18/22 Obese class I(Discharge Diagnosis) - 03/18/22 Recurrent sinusitis(Discharge Diagnosis) - 03/18/22 IgA deficiency(Discharge Diagnosis) - 03/18/22 Hypercholesterolemia(Discharge Diagnosis) - 03/18/22 Asthma(Discharge Diagnosis) - 03/18/22 Attending Physician: Santi James MD Allergies, Adverse Reactions, Alerts Substance Reaction Severity Status morphine Active Percocet Active Lipitor Myalgia unspecified Muscle cramps Active doxycycline Hives Active nitrofurantoin Pruritus Rash Active benzonatate Speech impediment Active Lopid Muscle cramps Myalgia and myositis unspecified Active Biaxin Upset stomach Active Levaquin Hives Active Immunizations Given and [...] 5Admin Note: work 6Admin Note: given at [facility] 7Admin Note: per pt, done at [facility] 8Admin Note: done @ [facility], form received 9Admin Note: given at work 10Admin Note: given in the fall 11Result Comment: [id number] 12Result Comment: [08/31/2018] [id number] 13Result Comment: [08/24/2015] given w/out incident 14Admin Note: per pt 15Admin Note: [facility] Medications Albuterol (Eqv-ProAir HFA) 90 mcg/inh inhalation aerosol 2 puffs, Inhalation, Every 6 hours, PRN Wheezing/Shortness of Breath, # 6.7 Gm, 11 Refills, Maintenance, 02/26/22 9:18:00 EDT, [facility]/pharmacy #[id number], Partial fill upon patient [...] each, 4 Refills, Maintenance, 02/07/22 12:08:00 EDT, [place], [facility]/pharmacy #[id number], Partial fill upon patient [...] 16 Gm,6 Refills, Maintenance, 11/06/21 10:21:00 EST, [place], [facility]/pharmacy #[id number], Partial fill upon patientrequest if the prescription is for a schedule II op... Start Date: 11/06/21 Status: Ordered levothyroxine 0.05 mg oral tablet See Instructions, TAKE 1 TABLET BY MOUTH EVERY DAY, # 90 tablet, 1 Refills, [facility] STORE [id number], 156, cm, 02/07/22 11:31:00 EDT, Height Start Date: 02/19/22 Status: Ordered loratadine 10 mg oral tablet 10 mg, 1, tablet, By Mouth, Daily, # 30 tablet, Refills 11, Tot. Refills 11, Maintenance, 02/26/22 9:18:00 EDT, Route to Pharmacy Electronically, [facility]/pharmacy #[id number], Partial fill upon patient [...] 9:18:00 EDT, Route to Pharmacy Electronically, [facility]/pharmacy #[id number], Partial fill upon patient requestif the prescription is for a schedule II opioid lauro... Start Date: 02/26/22 Status: Ordered Symbicort 160mcg/4.5mcg Inhaler 2, puffs, Inhalation, 2 times a day, in the morning and the evening use with spacer chamber rinse mouth and throat after use, # 54 Gm, Refills 12, Tot. Refills 12, Maintenance, 02/26/22 9:18:00 EDT, Aerosol, Route to Pharmacy Electronically, [id number]... Start Date: 02/26/22 Status: Ordered Vitamin D3 [...] of hernia of abdomina l wall(Confirmed) Active Diagnosis Diagnosis Type Effective Dates Health Status Clinical Service Informant GARCIA (obstructive sleep apnea) Discharge Diagnosis 03/18/22 Obese class I Discharge Diagnosis 03/18/22 Recurrent sinusitis Discharge Diagnosis 03/18/22 IgA deficiency Discharge Diagnosis 03/18/22 Hypercholesterolemia Discharge Diagnosis 03/18/22 Asthma Discharge Diagnosis 03/18/22 Vital Signs Most recent to oldest [Reference Range]: 1 2 Height 156 cm (03/18/22 8:26 AM) 156 cm (03/18/22 8:12 AM) Weight 78.1 kg (03/18/22 8:12 AM) Oxygen Saturation [94-100 %] 98 % (03/18/22 8:12 AM) Pulse Rate [55-90 bpm] 78 bpm (03/18/22 8:12 AM) Body Mass Index [18.5-24.99] 32.09 *>HHI* (03/18/22 8:12 AM) Blood Pressure [90-138/55-84 mm Hg] 126/ 62mm Hg (03/18/22 8:26 AM) 132/74mm Hg (03/18/22 8:12 AM) Mode of Delivery (Oxygen) Room air (03/18/22 8:12 AM) Blood pressure sites Arm, left (03/18/22 8:12 AM) Social History Social History Type Response Smoking Status Never smoker entered on: 10/12/14 Sex
--- OUTSIDE RECORDS SUMMARY | 2024-07-15 15:39 | XMS_ITS | Continuity of Care Document ---
Author Organization [facility] Address [address] [place] [address]- Care Team Providers Care Front End Developer Name Role Phone Santi James MD Primary Care Physician Encounter [facility] Date(s): 06/13/22 - 07/13/22 [facility] [address] [place], [place] [address] Allergies, Adverse Reactions, Alerts Substance Reaction [...] (Td) 11/03/99 Given 1Admin Note: done @ [facility],form received 2Result Comment: [07/31/2015] [facility] 3Admin Note: done @ [facility] 4Admin Note: vis sheet given. 5Admin Note: work 6Admin Note: given at [facility] in [place] 7Admin Note: per pt, done at [facility] 8Admin Note: done @ [facility], form received 9Admin Note: given at work 10Admin Note: given in the fall 11Result Comment: [id number] 12Result Comment: [08/31/2018] [id number] 13Result Comment: [08/24/2015] given w/out incident 14Admin Note: per pt 15Admin Note: [facility] Medications acetaminophen 650 mg oral tablet, extended release 1 tablet, By Mouth, Every 8 hours, PRN NEEDED FOR PAIN, # 90 tablet, 3 Refills, [facility] STORE 82510,156, cm, 04/04/22 7:36:00 EDT, Height, 78.9, kg, 04/04/22 7:36:00 EDT, Dry Weight Start Date: 04/08/22 Status: Ordered Albuterol (Eqv-ProAir HFA) 90 mcg/inh inhalation aerosol 2 puffs, Inhalation, Every 6 hours, PRN Wheezing/Shortness of Breath, # 6.7 Gm, 11 Refills, Maintenance, 02/26/22 9:18:00 EDT, [facility]/pharmacy #[id number], Partial fill upon patient request [...] each, 4 Refills, Maintenance, 02/07/22 12:08:00 EDT, [place], [facility]/pharmacy #[id number], Partial fill upon patient request if the prescription is for a schedule II opioid drug., 1 sprays Nares... Start Date: 02/07/22 Stop Date: 07/07/22 Status: Ordered cetirizine 10 mg oral tablet 1 tablet, By Mouth, Daily, # 90 tablet, 3 Refills, [facility] 09101, 156, cm, 03/18/22 8:26:00 EDT, Height Start [...] 0 Refills, Soft Stop, 06/20/22 13:59:00 EDT, Tablet,[facility]/pharmacy #[id number], Partial fill upon patient request if the prescription is for a schedule II opioid drug., 155, cm, 06/06/22 11:17:00 EDT, Height, 79... Start Date: 06/20/22 Status: Ordered fluticasone 50 mcg/inh nasal spray See Instructions, USE 1 SPRAY IN EACH NOSTRL 2 TIMES A DAY X 5 DAYS, AND THEN DAILY THEREAFTER, # 48 mL, 1 Refills, [facility] STORE 40864, 90, USE 1 SPRAY IN EACH NOSTRL 2 TIMES A DAY X 5 DAYS, AND THEN DAILY THEREAFTER, 156, cm, 04/04/22 7:36:00 EDT, Heigh... Start Date: 04/30/22 Status: Ordered levothyroxine 0.05 mg oral tablet See Instructions, TAKE 1 TABLET BY MOUTH EVERY DAY, # 90 tablet, 1 Refills, [facility] 80627, 156, cm, 02/07/22 11:31:00 EDT, Height Start Date: 02/19/22 Status: Ordered loratadine 10 mg oral tablet 10 mg, 1, tablet, By Mouth, Daily, # 30 tablet, Refills 11, Tot. Refills 11, Maintenance, 02/26/22 9:18:00 EDT, Route to Pharmacy Electronically, [facility]/pharmacy #[id number], Partial fill upon patient requestif [...] 9:18:00 EDT, Route to Pharmacy Electronically, [facility]/pharmacy #[id number], Partial fill upon patient requestif [...] 9:18:00 EDT, Aerosol, Route to Pharmacy Electronically, [id number]... Start Date: 02/26/22 Status: Ordered Vitamin D3 [...] pack/packet, 0 Refills, Maintenance, 06/17/22 17:01:00 EDT, [facility]/pharmacy #[id number], Partial fill upon patient request [...] Team Personnel Name: Santi James MD Address: [address] [place] [address] [facility] [address]
--- OUTSIDE RECORDS SUMMARY | 2024-07-15 15:39 | XMS_ITS | Continuity of Care Document ---
Author Organization [facility] Address [address] [place] [address]- Care Team Providers Care Distribution Technician Name Role Phone Santi James MD Primary Care Physician Encounter [facility] Date(s): 06/06/22 - 07/06/22 [facility] [address] [place], [place] [address] Allergies, Adverse Reactions, Alerts Substance Reaction [...] (Td) 11/03/99 Given 1Admin Note: done @ [facility],form received 2Result Comment: [07/31/2015] [facility] 3Admin Note: done @ [facility] 4Admin Note: vis sheet given. 5Admin Note: work 6Admin Note: given at [facility] in [place] 7Admin Note: per pt, done at [facility] 8Admin Note: done @ [facility], form received 9Admin Note: given at work 10Admin Note: given in the fall 11Result Comment: [id number] 12Result Comment: [08/31/2018] [id number] 13Result Comment: [08/24/2015] given w/out incident 14Admin Note: per pt 15Admin Note: [facility] Medications acetaminophen 650 mg oral tablet, extended release 1 tablet, By Mouth, Every 8 hours, PRN NEEDED FOR PAIN, # 90 tablet, 3 Refills, [facility] STORE 17094,156, cm, 04/04/22 7:36:00 EDT, Height, 78.9, kg, 04/04/22 7:36:00 EDT, Dry Weight Start Date: 04/08/22 Status: Ordered Albuterol (Eqv-ProAir HFA) 90 mcg/inh inhalation aerosol 2 puffs, Inhalation, Every 6 hours, PRN Wheezing/Shortness of Breath, # 6.7 Gm, 11 Refills, Maintenance, 02/26/22 9:18:00 EDT, [facility]/pharmacy #[id number], Partial [...] each, 4 Refills, Maintenance, 02/07/22 12:08:00 EDT, [place], [facility]/pharmacy #[id number], Partial fill upon patient request if the prescription is for a schedule II opioid drug., 1 sprays Nares... Start Date: 02/07/22 Stop Date: 07/07/22 Status: Ordered cetirizine 10 mg oral tablet 1 tablet, By Mouth, Daily, # 90 tablet, 3 Refills, [facility] ST[facility] 14655, 156, cm, 03/18/22 8:26:00 EDT, Height Start [...] 0 Refills, Soft Stop, 06/20/22 13:59:00 EDT, Tablet,[facility]/pharmacy #[id number], Partial fill upon patient request if the prescription is for a schedule II opioid drug., 155, cm, 06/06/22 11:17:00 EDT, Height, 79... Start Date: 06/20/22 Status: Ordered fluticasone 50 mcg/inh nasal spray See Instructions, USE 1 SPRAY IN EACH NOSTRL 2 TIMES A DAY X 5 DAYS, AND THEN DAILY THEREAFTER, # 48 mL, 1 Refills, [facility] STORE 77854, 90, USE 1 SPRAY IN EACH NOSTRL 2 TIMES A DAY X 5 DAYS, AND THEN DAILY THEREAFTER, 156, cm, 04/04/22 7:36:00 EDT, Heigh... Start Date: 04/30/22 Status: Ordered levothyroxine 0.05 mg oral tablet See Instructions, TAKE 1 TABLET BY MOUTH EVERY DAY, # 90 tablet, 1 Refills, [facility] ST[facility] 35976, 156, cm, 02/07/22 11:31:00 EDT, Height Start Date: 02/19/22 Status: Ordered loratadine 10 mg oral tablet 10 mg, 1, tablet, By Mouth, Daily, # 30 tablet, Refills 11, Tot. Refills 11, Maintenance, 02/26/22 9:18:00 EDT, Route to Pharmacy Electronically, [facility]/pharmacy #[id number], Partial fill upon patient requestif [...] 02/26/22 9:18:00 EDT, Route to Pharmacy Electronically, [facility]/pharmacy #[id number], Partial fill upon patient requestif [...] 9:18:00 EDT, Aerosol, Route to Pharmacy Electronically, [id number]... Start Date: 02/26/22 Status: Ordered Vitamin D3 [...] pack/packet, 0 Refills, Maintenance, 06/17/22 17:01:00 EDT, [facility]/pharmacy #[id number], Partial [...] Team Personnel Name: Santi James MD Address: [address] [place] [address] [facility] [address]
--- OUTSIDE RECORDS SUMMARY | 2024-07-15 15:39 | XMS_ITS | Continuity of Care Document ---
Author Organization [facility] Address [address] [place] [address]- Care Team Providers Care Molder Hand Name Role Phone Santi James MD Primary Care Physician Encounter [facility] Date(s): 08/12/23 - 12/10/23 [facility] [address] [place], [place] [address] Attending Physician: Santi James MD Allergies, Adverse [...] Nitin rded influenza virus vaccine, inactivated 07/23/17 Nitni rded influenza virus vaccine, inactivated 1 06/24/16 [...] 11/03/99 Given 1Admin Note: done @ [facility],form received 2Result Comment: [07/31/2015] [facility] 3Admin Note: done @ [facility] 4Admin Note: vis sheet given. 5Admin Note: work 6Admin Note: given at [facility] in [place] 7Admin Note: per pt, done at [facility] 8Admin Note: done @ [facility], form received 9Admin Note: given at work 10Admin Note: given in the fall 11Result Comment: [id number] 12Result Comment: [08/31/2018] [id number] 13Result Comment: [08/24/2015] given w/out incident 14Admin [...] tablet, 3 Refills, Maintenance, 01/17/23 12:44:00 EDT, [facility] 81927, 156.15, cm, 11/29/22 14:40:00 EST, Height, 79.5, [...] 90 Unknown,1 Refills, Maintenance, 06/10/23 8:18:00 EDT, [facility] 20881, 90, USE 1 SPRAY IN BOTH NOSTRILS [...] Refills, Soft Stop, 11/06/23 9:46:00 EST, Tablet, [facility]/pharmacy #[id number], Partial fill upon patient request if the prescription is for a schedule II opioid drug., 155, cm, 11/06/23 9:08:00 EST, Height, 83.7... Start Date: 11/06/23 Status: Ordered EpiPen 2-Tramaine 0.3 mg injectable kit = 0.3 mg, Intramuscular, Once, PRN Anaphylactic Reaction, may repeat if necessary, # 1 each, 11 Refills, Soft Stop, 03/14/23 15:31:00 EDT, [facility]/pharmacy #[id number], Partial fill upon patient request if theprescription is for a schedule II opioid drug., 155... Start Date: 03/14/23 Status: Ordered fexofenadine 180 mg oral tablet 1 tablet = 180 mg, By Mouth, Daily, PRN for allergy symptoms, # 90 tablet, 4 Refills, Maintenance, 09/02/23 11:04:00 EDT, Tablet, [facility]/pharmacy #[id number], Partial [...] Refills, Soft Stop, 11/28/23 12:38:00 EST, Tablet, [facility]/pharmacy #[id number], Partial fill upon patient request if the prescription is for a schedule II opioid... Start Date: 11/28/23 Status: Ordered ibuprofen 800 mg oral tablet 1, tablet, By Mouth, 3 times a day, X30 DAYS, STOP ASPIRIN WHILE TAKING THIS., # 90 tablet, Refills1, Maintenance, 12/04/23 7:25:00 EST, Route to Pharmacy Electronically, [facility] ST[facility] 08133, 155, cm, 11/18/23 16:29:00 EST, Height, 83.7, kg, 11/06/23 9:0... Start Date: 12/04/23 Status: Ordered levothyroxine 0.05 mg oral tablet 1 tablet, By Mouth, Daily, # 90 tablet, 3 Refills, Maintenance, 08/12/23 15:31:00 EDT, [facility]/pharmacy#2476, 155, cm, 08/12/23 15:09:00 EDT, Height, 83.9, kg, 03/13/23 4:46:00 EDT, Dry Weight Start Date: 08/12/23 Stop Date: 08/06/24 Status: Ordered montelukast 10 mg oral tablet 1, tablet, By Mouth, Daily, # 90 tablet, Refills 3, Maintenance, 11/23/23 8:40:00 EST, Route to Pharmacy Electronically, [facility] ST[facility] 32269, 155, cm, 11/18/23 16:29:00 EST, Height, 83.7, [...] Refills, Maintenance, 03/28/23 13:04:00 EDT, Aerosol, [facility]/pharmacy #[id number], replaced Proventil that is not available, 155, cm, 03/13/23 11:02:00 EDT, Height, 83.9, kg, 03/13/23 4:46:00 EDT... Start Date: 03/28/23 Stop Date: 08/25/23 Status: Ordered Zetia 10 mg oral tablet 1 tablet = 10 mg, By Mouth, Daily, # 30 tablet, 1 Refills, Maintenance, 10/28/23 10:28:00 EST, Tablet, [facility]/pharmacy #[id number], Partial [...] Personnel Name: Justa HARRIS, Geni [place] Position: [facility] Associate Professional Member Role: Primary Care Nurse Address: Address: [address] [place] [address]- Name: Talia Matute RN Position: [facility] RN Member Role: Primary Care Nurse Name: Santi James MD Position: [facility] Physician - Primary Care Member Role: PCP Address: Address: [address] [place] [address] Adult [place] [address]- Care Team Related Persons Name: PITER BAILEY Address: home [address] [place] [address] Name: DELMIS ADAMS Address: [place] [address] Name: RUPERT PALMER Address: [address] [place] [address] Name: DESIRAE CHAUDHARY Address: home [address] [place], [place]
--- OUTSIDE RECORDS SUMMARY | 2024-07-15 15:39 | XMS_ITS | Continuity of Care Document ---
Author Organization [facility] Address [address] [place] [address]- Care Team Providers Care Narcotics Detective Name Role Phone Santi James MD Primary Care Physician Encounter [facility] Date(s): 11/30/20 - 12/30/20 [facility] [address] [place], [place] [address] Allergies, Adverse Reactions, Alerts Substance Reaction Severity Status doxycycline Hives Active morphine Active Percocet Active Lipitor Myalgia unspecified Muscle cramps Active Levaquin Hives Active nitrofurantoin Pruritus Rash Active benzonatate Speech impediment Active Zithromax gi upset Active Lopid Muscle cramps Myalgia and myositis unspecified Active Biaxin Upset stomach Active Augmentin 1 hives Active Bactrim DS Stomach cramps Active 1may [...] the fall 3Admin Note: done @ [facility], form received 4Result Comment: [id number] 5Result Comment: [08/31/2018] [id number] 6Result Comment: [08/24/2015] given w/out incident 7Admin Note: done @ [facility],form received 8Result Comment: [07/31/2015] [facility] 9Admin Note: done @ [facility] 10Admin Note: vis sheet given. 11Admin Note: work 12Admin Note: given at [facility] in [place] 13Admin Note: per pt, done at [facility] 14Admin Note: per pt 15Admin Note: [facility] Medications albuterol 0.083% inhalation solution 3 mL = 2.5 mg, Inhalation, Every 6 hours, PRN for wheezing, Dx: asthma, # 100 each, 4 Refills, Maintenance, 12/01/19 12:54:00 EST, Solution, [facility]/pharmacy #[id number], 156, cm, 12/01/19 12:40:00 EST, Height, 79.6, kg, 03/10/19 14:10:00 EDT, Dry Weight Start Date: 12/01/19 Stop Date: 04/29/20 Status: Ordered albuterol CFC free 90 mcg/inh inhalation aerosol 2, puffs, Inhalation, Every 4 hours, PRN, # 9 Gm, Refills 0, Tot. Refills 0, Maintenance, 10/28/17 14:12:34, Aerosol, Route to Pharmacy Electronically, [id number], [facility]/pharmacy #[id number], Compound Start Date: 10/28/17 Status: Ordered [...] 5 Refills, Maintenance, 10/10/20 12:10:00 EST, Tablet, [facility]/pharmacy #[id number], 156, cm, 03/13/20 10:31:00 EDT, Height, [...] 10/05/20 15:45:00 EST, Route to Pharmacy Electronically, [facility] STORE [id number], 156, cm, 03/13/20 10:31:00 EDT, Height, 78.8, kg, 12/20/19 10:35:00 EST, Dry Weight Start Date: 10/05/20 Status: Ordered ipratropium nasal 21 mcg/inh spray 2 sprays, Nares, Both, 2 times a day, # 30 mL, 0 Refills, Maintenance, 07/25/20 16:52:00 EDT, [place], [facility]/pharmacy #[id number], 2 sprays Nares, Both 2 times a day, 156, cm, 03/13/20 10:31:00 EDT, Height, 78.8, kg, 12/20/19 10:35:00 EST, Dry Weight Start Date: 07/25/20 Status: Ordered levothyroxine 0.05 mg oral tablet 1 tablet = 50 mcg, By Mouth, Daily, # 90 tablet, 3 Refills, Maintenance, 03/13/20 11:08:00 EDT, Tablet, [facility]/pharmacy #[id number], 156, cm, 03/13/20 10:31:00 EDT, Height, 78.8, kg, 12/20/19 10:35:00 EST, Dry Weight Start Date: 03/13/20 Stop Date: 03/08/21 Status: Ordered montelukast 10 mg oral tablet 1, tablet, By Mouth, Daily, # 90 tablet, Refills 2, Tot. Refills 0, Maintenance, 10/05/20 15:45:00 EST, Route to Pharmacy Electronically, [facility] STORE 04640, 156, cm, 03/13/20 10:31:00 EDT, Height, 78.8, [...] Refills, Soft Stop, 09/14/20 8:46:00 EST, Tablet, [facility]/pharmacy #[id number], 156,cm, 03/13/20 10:31:00 EDT, Height, 78.8, kg, 12/20/... Start Date: 09/14/20 Status: Ordered Qvar Redihaler 40 mcg/inh inhalation aerosol 1 puffs, Inhalation, 2 times a day, rinse mouth and throat after use, # 1 each, 0 Refills, Maintenance, 09/14/20 8:47:00 EST, [facility]/pharmacy #[id number], 1 puffs Inhalation 2 times a [...]
--- OUTSIDE RECORDS SUMMARY | 2024-07-15 15:39 | XMS_ITS | Continuity of Care Document ---
Author Organization [facility] Address [address] [place] [address]- Care Team Providers Care Modeler Name Role Phone Jacob DORAN, Santi Primary Care Physician [facility] Date[facility]): 03/18/22 - 05/05/22 [facility] [address] [place], [place] [address] Attending Physician: Gary Adrian MD Allergies, Adverse Reactions, Alerts Substance Reaction Severity Status morphine Active Percocet Active doxycycline Hives Active nitrofurantoin Pruritus Rash Active benzonatate Speech impediment Active Lopid Muscle cramps Myalgia and myositis unspecified Active Biaxin Upset stomach Active Levaquin Hives Active Lipitor Myalgia unspecified Muscle cramps Active [...] (Td) 11/03/99 Given 1Admin Note: done @ [facility],form received 2Result Comment: [07/31/2015] [facility] 3Admin Note: done @ [facility] 4Admin Note: vis sheet given. 5Admin Note: work 6Admin Note: given at [facility] 7Admin Note: per pt, done at [facility] 8Admin Note: done @ [facility], form received 9Admin Note: given at work 10Admin Note: given in the fall 11Result Comment: [id number] 12Result Comment: [08/31/2018] [id number] 13Result Comment: [08/24/2015] given w/out incident 14Admin Note: per pt 15Admin Note: [facility] Medications acetaminophen 650 mg oral tablet, extended release 1 tablet, By Mouth, Every 8 hours, PRN NEEDED FOR PAIN, # 90 tablet, 3 Refills, [facility] STORE 95506,156, cm, 04/04/22 7:36:00 EDT, Height, 78.9, kg, 04/04/22 7:36:00 EDT, Dry Weight Start Date: 04/08/22 Status: Ordered Albuterol (Eqv-ProAir HFA) 90 mcg/inh inhalation aerosol 2 puffs, Inhalation, Every 6 hours, PRN Wheezing/Shortness of Breath, # 6.7 Gm, 11 Refills, Maintenance, 02/26/22 9:18:00 EDT, [facility]/pharmacy #[id number], Partial fill upon patient [...] each, 4 Refills, Maintenance, 02/07/22 12:08:00 EDT, [place], [facility]/pharmacy #[id number], Partial fill upon patient request if the prescription is for a schedule II opioid drug., 1 sprays Nares... Start Date: 02/07/22 Stop Date: 07/07/22 Status: Ordered cetirizine 10 mg oral tablet 1 tablet, By Mouth, Daily, # 90 tablet, 3 Refills, [facility] STORE [id number], 156, cm, 03/18/22 8:26:00 EDT, Height Start [...] Refills, Soft Stop, 04/08/22 13:39:00 EDT, Tablet,[facility]/pharmacy #[id number], Partial fill upon patient request if the prescription is for a schedule II opioid drug., 156, cm, 04/04/22 7:36:00 EDT, Height, 78.... Start Date: 04/08/22 Status: Ordered fluticasone 50 mcg/inh nasal spray See Instructions, USE 1 SPRAY IN EACH NOSTRL 2 TIMES A DAY X 5 DAYS, AND THEN DAILY THEREAFTER, # 48 mL, 1 Refills, [facility] STORE 37433, 90, USE 1 SPRAY IN EACH NOSTRL 2 TIMES A DAY X 5 DAYS, AND THEN DAILY THEREAFTER, 156, cm, 04/04/22 7:36:00 EDT, Heigh... Start Date: 04/30/22 Status: Ordered levothyroxine 0.05 mg oral tablet See Instructions, TAKE 1 TABLET BY MOUTH EVERY DAY, # 90 tablet, 1 Refills, [facility] STORE 85665, 156, cm, 02/07/22 11:31:00 EDT, Height Start Date: 02/19/22 Status: Ordered loratadine 10 mg oral tablet 10 mg, 1, tablet, By Mouth, Daily, # 30 tablet, Refills 11, Tot. Refills 11, Maintenance, 02/26/22 9:18:00 EDT, Route to Pharmacy Electronically, [facility]/pharmacy #[id number], Partial fill upon patient [...] 9:18:00 EDT, Route to Pharmacy Electronically, [facility]/pharmacy #[id number], Partial fill upon patient [...] 9:18:00 EDT, Aerosol, Route to Pharmacy Electronically, [id number]... Start Date: 02/26/22 Status: Ordered Vitamin D3 [...] 0 Refills, Maintenance, 04/08/22 12:19:00 EDT, [facility]/pharmacy #[id number], Partial fill upon patient [...]
--- OUTSIDE RECORDS SUMMARY | 2024-07-15 15:39 | XMS_ITS | Continuity of Care Document ---
Author Organization [facility] Address [address] [place] [address]- Care Team Providers Care Packing Inspector Name Role Phone Santi James MD Primary Care Physician [facility] Date(s): 12/02/22 - 01/01/23 [facility] [address] [place], [place] [address] All[facility]ies, Adverse Reactions, Alerts [...] given at [facility] 7Admin Note: per pt, done at [facility] 8Admin Note: done @ [facility], form received 9Admin Note: given at work 10Admin Note: given in the fall 11Result Comment: [id number] 12Result Comment: [08/31/2018] [id number] 13Result Comment: [08/24/2015] given w/out incident 14Admin Note: per pt 15Admin Note: [facility] Medications acetaminophen 650 mg oral tablet, extended release 1 tablet, By Mouth, Every 8 hours, PRN NEEDED FOR PAIN, # 90 tablet, 3 Refills, [facility] 20619,156, cm, 04/04/22 7:36:00 EDT, Height, 78.9, kg, 04/04/22 7:36:00 EDT, Dry Weight Start Date: 04/08/22 Status: Ordered Albuterol (Eqv-ProAir HFA) 90 mcg/inh inhalation aerosol 2 puffs, Inhalation, Every 6 hours, PRN Wheezing/Shortness of Breath, # 6.7 Gm, 11 Refills, Maintenance, 08/29/22 9:07:00 EDT, [facility]/pharmacy #[id number], Partial fill upon patient request if [...] each, 10 Refills, Maintenance, 11/25/22 15:18:00 EST, [place], [facility]/pharmacy #[id number], replaces 0.15% dose, 1 sprays Nares, [...] Gm, 11 Refills, 08/29/22 9:07:00 EDT, [facility]/pharmacy #[id number], USE 1 SPRAY IN EACH NOSTRL 2 TIMES A DAYX 5 DAYS, AND THEN DAILY THEREAFTER, 156.15, cm, 10... Start Date: 08/29/22 Status: Ordered levothyroxine 0.05 mg oral tablet See Instructions, TAKE 1 TABLET BY MOUTH EVERY DAY, # 90 tablet, 1 Refills, 09/01/22 19:54:00 EDT, [facility]/pharmacy #[id number], 156.15, cm, 08/29/22 8:44:00 EDT, Height, 79.5, kg, 06/06/22 11:17:00 EDT, Dry Weight Start Date: 09/01/22 Status: Ordered loratadine 10 mg oral tablet 10 mg, 1, tablet, By Mouth, Daily, # 30 tablet, Refills 11, Tot. Refills 11, Maintenance, 08/29/22 9:07:00 EDT, Route to Pharmacy Electronically, [facility]/pharmacy #[id number], Partial fill upon patient requestif the [...] 1 each, 11 Refills, Maintenance, 11/28/2314:07:00 EST, [facility], Partial fill upon [...] 9:07:00 EDT, Route to Pharmacy Electronically, [facility]/pharmacy #[id number], Partial fill upon patient requestif the prescription is for a schedule II opioid lauro... Start Date: 08/29/22 Status: Ordered Symbicort 160mcg/4.5mcg Inhaler 2, puffs, Inhalation, 2 times a day, in the morning and the evening use with spacer chamber rinse mouth and throat after use, # 1 each, Refills 5, Tot. Refills 5, Maintenance, 10/17/22 10:03:00 EST, Aerosol, Route to Pharmacy Electronically, [id number]... Start Date: 10/17/22 Status: Ordered Vitamin D3 [...] Personnel Name: Justa HARRIS, Geni Orlando Position: [facility] Associate Professional Member Role: Primary Care Nurse Address: Address: [address] [place] [address]- Name: Santi James MD Position: [facility] Primary Care Physician Member Role: PCP Address: Address: [address] [place] [address]- Care Team Related Persons Name: PITER BAILEY Address: home [address] [place] [address] Name: DELMIS ADAMS Address: home [address] [place], [place] Name: RUPERT PALMER Address: home [address] [place], [place] Name: DESIRAE CHAUDHARY Address: home [address] [place], [place]
--- OUTSIDE RECORDS SUMMARY | 2024-07-15 15:39 | XMS_ITS | Continuity of Care Document ---
Author Organization [facility] Address [address] [place] [address]- Care Team Providers Care Credit Historian Name Role Phone Jacob DORAN, Santi Primary Care Physician [facility] Date[facility]s): 11/15/22 - 12/15/22 [facility] [address] [place], [place] [address] Allergies, Adverse Reactions, Alerts Substance Reaction Severity Status doxycycline Hives Active nitrofurantoin Pruritus Rash Active morphine Active Percocet Active Lipitor Myalgia unspecified Muscle cramps Active Levaquin Hives Active Demerol Active benzonatate Speech impediment Active Lopid Muscle cramps Myalgia and myositis unspecified Active Biaxin Upset stomach Active Immunizations Given [...] (Td) 11/03/99 Given 1Admin Note: done @ [facility],form received 2Result Comment: [07/31/2015] [facility] 3Admin Note: done @ [facility] 4Admin Note: vis sheet given. 5Admin Note: work 6Admin Note: given at [facility] 7Admin Note: per pt, done at [facility] 8Admin Note: done @ [facility], form received 9Admin Note: given at work 10Admin Note: given in the fall 11Result Comment: [id number] 12Result Comment: [08/31/2018] [id number] 13Result Comment: [08/24/2015] given w/out incident 14Admin Note: per pt 15Admin Note: [facility] Medications acetaminophen 650 mg oral tablet, extended release 1 tablet, By Mouth, Every 8 hours, PRN NEEDED FOR PAIN, # 90 tablet, 3 Refills, [facility],156, cm, 04/04/22 7:36:00 EDT, Height, 78.9, kg, 04/04/22 7:36:00 EDT, Dry Weight Start Date: 04/08/22 Status: Ordered Albuterol (Eqv-ProAir HFA) 90 mcg/inh inhalation aerosol 2 puffs, Inhalation, Every 6 hours, PRN Wheezing/Shortness of Breath, # 6.7 Gm, 11 Refills, Maintenance, 08/29/22 9:07:00 EDT, [facility]/pharmacy #[id number], Partial fill upon patient request if [...] each, 10 Refills, Maintenance, 11/25/22 15:18:00 EST, [place], [facility]/pharmacy #2476, replaces 0.15% dose, 1 sprays Nares, [...] 16 Gm, 11 Refills, 08/29/22 9:07:00 EDT, [facility]/pharmacy #[id number], USE 1 SPRAY IN EACH NOSTRL 2 TIMES A DAYX 5 DAYS, AND THEN DAILY THEREAFTER, 156.15, cm, 10... Start Date: 08/29/22 Status: Ordered levothyroxine 0.05 mg oral tablet See Instructions, TAKE 1 TABLET BY MOUTH EVERY DAY, # 90 tablet, 1 Refills, 09/01/22 19:54:00 EDT, [facility]/pharmacy #2476, 156.15, cm, 08/29/22 8:44:00 EDT, Height, 79.5, kg, 06/06/22 11:17:00 EDT, Dry Weight Start Date: 09/01/22 Status: Ordered loratadine 10 mg oral tablet 10 mg, 1, tablet, By Mouth, Daily, # 30 tablet, Refills 11, Tot. Refills 11, Maintenance, 08/29/22 9:07:00 EDT, Route to Pharmacy Electronically, [facility]/pharmacy #[id number], Partial fill upon patient requestif the [...] 1 each, 11 Refills, Maintenance, 11/28/2314:07:00 EST, [facility], Partial fill upon patient [...] 08/29/22 9:07:00 EDT, Route to Pharmacy Electronically, [facility]/pharmacy #2926, Partial fill upon patient requestif the prescription is for a schedule II opioid lauro... Start Date: 08/29/22 Status: Ordered Symbicort 160mcg/4.5mcg Inhaler 2, puffs, Inhalation, 2 times a day, in the morning and the evening use with spacer chamber rinse mouth and throat after use, # 1 each, Refills 5, Tot. Refills 5, Maintenance, 10/17/22 10:03:00 EST, Aerosol, Route to Pharmacy Electronically, [id number]... Start Date: 10/17/22 Status: Ordered Vitamin D3 [...] Personnel Name: Justa HARRIS, Geni Orlando Position: [facility] Associate Professional Member Role: Primary Care Nurse Address: Address: [address] [place] [address]- Name: Santi James MD Position: [facility] Primary Care Physician Member Role: PCP Address: Address: [address] [place] [address]- Care Team Related Persons Name: PITER BAILEY Address: home [address] [place] [address] Name: DELMIS ADAMS Address: home [address] [place], [place] Name: RUPERT PALMER Address: home [address] [place], [place] Name: DESIRAE CHAUDHARY Address: home [address] [place], [place]
--- OUTSIDE RECORDS SUMMARY | 2024-07-15 15:39 | XMS_ITS | Continuity of Care Document ---
Author Organization [facility] Address [address] [place] [address]- Care Team Providers Care Creative Services Director Name Role Phone Jacob DORAN, Santi Primary Care Physician Encounter [facility] [place] [place] Date(s): 03/10/23 - 04/09/23 [facility] [address] [place], [place] [address] Attending Physician: Jair Chandra MD Referring Physician: Santi James MD Allergies, [...] Given 1Admin Note: done @ [facility],form received 2Result Comment: [07/31/2015] [facility] 3Admin Note: done @ [facility] 4Admin Note: vis sheet given. 5Admin Note: work 6Admin Note: given at [facility] 7Admin Note: per pt, done at [facility] 8Admin Note: done @ [facility], form received 9Admin Note: given at work 10Admin Note: given in the fall 11Result Comment: [id number] 12Result Comment: [08/31/2018] [id number] 13Result Comment: [08/24/2015] given w/out incident 14Admin Note: per pt 15Admin Note: [facility] Medications acetaminophen 650 mg oral tablet, extended release 1 tablet, By Mouth, Every 8 hours, PRN NEEDED FOR PAIN, # 90 tablet, 3 Refills, Maintenance, 01/17/23 12:44:00 EDT, [facility], 156.15, cm, 11/29/22 14:40:00 EST, Height, 79.5, [...] each, 10 Refills, Maintenance, 11/25/22 15:18:00 EST, [place], [facility]/pharmacy #2476, replaces 0.15% dose, [...] tablet, 1 Refills, Maintenance, 03/01/23 14:21:00 EDT, [facility] ST[facility] 78925, 156.15, cm, 11/29/22 14:40:00 EST, Height, 79.5, [...] 4 Refills, Maintenance, 03/28/23 13:04:00 EDT, Aerosol, [facility]/pharmacy #2176, replaced Proventil that is not available, 155, [...] Personnel Name: Justa HARRIS, Geni Orlando Position: [facility] Associate Professional Member Role: Primary Care Nurse Address: Address: [address] [place] [address]- Name: Talia Matute RN Position: [facility] RN Member Role: Primary Care Nurse Name: Santi James MD Position: [facility] Physician - Primary Care Member Role: PCP Address: Address: [address] [place] [address] Adult & [place] [address]- Care Team Related Persons Name: PITER BAILEY Address: home [address] [place] [address] Name: DELMIS ADAMS Address: home [address] [place], [place] Name: RUPERT PALMER Address: [address] [place] [address] Name: DESIRAE CHAUDHARY Address: home [address] [place], [place]
--- OUTSIDE RECORDS SUMMARY | 2024-07-15 15:39 | XMS_ITS | Continuity of Care Document ---
Author Organization [facility] Address [address] [place] [address]- Care Team Providers Care Broadcast Operations Director Name Role Phone Jacob DORAN, Santi Primary Care Physician [facility] Date[facility]s): 11/18/23 - 11/25/23 [facility] [address] [place], [place] [address] Attending Physician: eGorge Luong MD Allergies, Adverse Reactions, Alerts Substance Reaction [...] influenza virus vaccine, inactivated 3 07/01/14 Gi crsitel influenza virus vaccine, inactivated 4 07/02/12 Gi [...] 6Admin Note: given at [facility] [place] 7Admin Note: per pt, done at [facility] 8Admin Note: done @ [facility], form received 9Admin Note: given at work 10Admin Note: given in the fall 11Result Comment: [id number] 12Result Comment: [08/31/2018] [id number] 13Result Comment: [08/24/2015] given w/out incident 14Admin [...] Refills, Maintenance, 01/17/23 12:44:00 EDT, [facility], 156.15, cm, 11/29/22 14:40:00 EST, Height, 79.5, [...] Acute 11/28/23 16:51:00 EST, 11/18/23 16:51:00 EST, [facility]/pharmacy #5749, Partial fill upon patient request if the prescription is for a schedule II opioid drug., 155, cm, 11/18/23... Start Date: 11/18/23 Stop Date: 11/28/23 Status: Ordered azelastine 137 mcg/inh (0.1%) nasal spray See Instructions, USE 1 SPRAY IN BOTH NOSTRILS 2 TIMES A DAY NEEDED FOR ALLERGIES, # 90 Unknown,1 Refills, Maintenance, 06/10/23 8:18:00 EDT, [facility], 90, USE 1 SPRAY IN BOTH NOSTRILS [...] Refills, Soft Stop, 11/06/23 9:46:00 EST, Tablet, [facility]/pharmacy #2476, Partial fill upon patient request if the prescription is for a schedule II opioid drug., 155, cm, 11/06/23 9:08:00 EST, Height, 83.7... Start Date: 11/06/23 Status: Ordered EpiPen 2-Tramaine 0.3 mg injectable kit = 0.3 mg, Intramuscular, Once, PRN Anaphylactic Reaction, may repeat if necessary, # 1 each, 11 Refills, Soft Stop, 03/14/23 15:31:00 EDT, [facility]/pharmacy #2476, Partial fill upon patient request if theprescription is for a schedule II opioid drug., 155... Start Date: 03/14/23 Status: Ordered fexofenadine 180 mg oral tablet 1 tablet = 180 mg, By Mouth, Daily, PRN for allergy symptoms, # 90 tablet, 4 Refills, Maintenance, 09/02/23 11:04:00 EDT, Tablet, [facility]/pharmacy #2476, Partial fill upon patient request if the prescription is for a schedule II opioid drug., 155, cm, 10/... Start Date: 09/02/23 Stop Date: 11/25/24 Status: Ordered levothyroxine 0.05 mg oral tablet 1 tablet, By Mouth, Daily, # 90 tablet, 3 Refills, Maintenance, 08/12/23 15:31:00 EDT, [facility]/pharmacy#2476, 155, cm, 08/12/23 15:09:00 EDT, Height, 83.9, kg, 03/13/23 4:46:00 EDT, Dry Weight Start Date: 08/12/23 Stop Date: 08/06/24 Status: Ordered montelukast 10 mg oral tablet 1, tablet, By Mouth, Daily, # 90 tablet, Refills 3, Maintenance, 11/23/23 8:40:00 EST, Route to Pharmacy Electronically, [facility] STORE 24380, 155, cm, 11/18/23 16:29:00 EST, Height, 83.7, [...] oldest [Reference Range]: 1 Height 155 cm (11/18/23 4:29 PM) Weight 83.2 kg (11/18/23 4:29 PM) Oxygen Saturation [94-100 %] 97 % (11/18/23 4:29 PM) Pulse Rate [55-90 bpm] 68 bpm (11/18/23 4:29 PM) Body Mass Index [18.5-24.99 kg/m2] 34.63 kg/m2 *>HHI* (11/18/23 4:29 PM) Blood Pressure [90-138/55-84 mm Hg] 156/ 72mm Hg *H* (11/18/23 4:29 PM) Temperature [96.8-100.4 DegF] 97.0 DegF (11/18/23 4:29 PM) Mode of Delivery (Oxygen) Room air (11/18/23 4:29 PM) Blood pressure sites Arm, left (11/18/23 4:29 PM) Temperature Route Temporal (11/18/23 4:29 PM) Weight Obtained Via Standing scale (11/18/23 4:29 PM) Social History Social History Type Response Smoking Status Never smoker entered on: 10/12/14 Sex Patient Care team information Care Team Personnel Name: Justa HARRIS, Geni Orlando Position: [facility] Associate Professional Member Role: Primary Care Nurse Address: Address: [address] [facility] [place] [address]- Name: Talia Matute RN Position: [facility] RN Member Role: Primary Care Nurse Name: Santi James MD Position: [facility] Physician - Primary Care Member Role: PCP Address: Address: [address] [place] [address]- Care Team Related Persons Name: PITER BAILEY Address: home [address] [place] [address] Name: DELMIS ADAMS Address: home [address] [place], [place] Name: RUPERT PALMER Address: home [address] [place], [place] Name: JET, DESIRAE Address: home [address] [place] [id number]
--- OUTSIDE RECORDS SUMMARY | 2024-07-15 15:39 | XMS_ITS | Continuity of Care Document ---
Author Organization [facility] Address [address] [place] [address]- Care Team Providers Care Manager Mission Name Role Phone Santi James MD Primary Care Physician [place] [facility] [place]21 [place] 08/23/21 [facility] [address] [place] [address]- Encounter Diagnosis Acute asthma exacerbation(Discharge Diagnosis) - 08/16/21 Attending Physician: Santi James MD Allergies, Adverse Reactions, Alerts Substance Reaction Severity Status morphine Active Percocet Active Biaxin Upset stomach Active Levaquin Hives Active doxycycline Hives Active nitrofurantoin Pruritus Rash Active benzonatate Speech impediment Active Zithromax gi upset Active Lopid Muscle cramps Myalgia and myositis unspecified Active Augmentin 1 hives Active Lipitor Myalgia unspecified Muscle cramps Active Bactrim DS Stomach cramps Active 1may [...] (Td) 11/03/99 Given 1Admin Note: done @ [facility],form received 2Result Comment: [07/31/2015] [facility] 3Admin Note: done @ [facility] 4Admin Note: vis sheet given. 5Admin Note: work 6Admin Note: given at [facility] 7Admin Note: per pt, done at [facility] 8Admin Note: done @ [facility], form received 9Admin Note: given at work 10Admin Note: given in the fall 11Result Comment: [id number] 12Result Comment: [08/31/2018] [id number] 13Result Comment: [08/24/2015] given w/out incident 14Admin Note: per pt 15Admin Note: [facility] Medications acetaminophen 650 mg oral tablet, extended release 1 tablet = 650 mg, By Mouth, Every 8 hours, PRN Pain , Moderate, for 30 days, # 90 tablet, 7 Refills, Acute 10/24/21 12:47:00 EST, 02/26/21 12:47:00 EDT, ER Tablet, [facility] #[id number], 156, cm, 03/13/20 10:31:00 EDT, Height, 78.8, kg, ... Start Date: 02/26/21 Stop Date: 10/24/21 Status: Ordered albuterol 0.083% inhalation solution 3 mL = 2.5 mg, Inhalation, Every 6 hours, PRN for wheezing, Dx: asthma, # 100 each, 4 Refills, Maintenance, 12/01/19 12:54:00 EST, Solution, [facility]/pharmacy #[id number], 156, cm, 12/01/19 12:40:00 EST, Height, 79.6, kg, 03/10/19 14:10:00 EDT, Dry Weight Start Date: 12/01/19 Stop Date: 04/29/20 Status: Ordered albuterol CFC free 90 mcg/inh inhalation aerosol 2, puffs, Inhalation, Every 4 hours, PRN, # 1 each, Refills 3, Tot. Refills 3, Maintenance, 03/13/21 8:25:00 EDT, Aerosol, Route to Pharmacy Electronically, [id number], [facility] #[id number], 156, cm, 03/13/21 8:16:00 E... Start Date: [...] 3 Refills, Maintenance, 03/13/21 8:26:00 EDT, Tablet, [facility] #[id number], 156, cm, 03/13/21 8:16:00 EDT, Height, 78.8, [...] 16 Gm,0 Refills, Maintenance, 08/02/21 11:22:00 EDT, [place], [facility] #[id number], Partial fill upon patient request if the prescription is for a sched... Start Date: 08/02/21 Status: Ordered ipratropium nasal 21 mcg/inh spray 2 sprays, Nares, Both, 2 times a day, # 30 mL, 0 Refills, Maintenance, 07/25/20 16:52:00 EDT, [place], [facility]/pharmacy #[id number], 2 sprays Nares, Both 2 times a day, 156, cm, 03/13/20 10:31:00 EDT, Height, 78.8, kg, 12/20/19 10:35:00 EST, Dry Weight Start Date: 07/25/20 Status: Ordered levothyroxine 0.05 mg oral tablet 1 tablet = 50 mcg, By Mouth, Daily, # 90 tablet, 3 Refills, Maintenance, 03/13/21 8:24:00 EDT, Tablet, [facility] #[id number], 156, cm, 03/13/21 8:16:00 EDT, Height, 78.8, kg, 12/20/19 10:35:00 EST, Dry Weight Start Date: 03/13/21 Stop Date: 03/08/22 Status: Ordered montelukast 10 mg oral tablet See Instructions, TAKE 1 TABLET BY MOUTH DAILY, # 90 tablet, Refills 1, Instructions Replace Required Details, [id number], 156, cm, 03/13/21 8:35:00EDT, Height, 78.8, kg, [...] # 37 tablet, 0 Refills, Soft Stop, 08/16/21 16:24:00 EDT, Tablet, [facility]/pharmacy #[id number], 156, cm, 08/16/21 15:58:00 EDT, Height, 78.8, kg, 12/20... Start Date: 08/16/21 Status: Ordered Qvar Redihaler 40 mcg/inh inhalation aerosol 1 puffs, Inhalation, 2 times a day, rinse mouth and throat after use, # 1 each, 0 Refills, Maintenance, 09/14/20 8:47:00 EST, [id number], 1 puffs Inhalation 2 times a day,x30 days,Instr:rinsemouth and throat after use, 156, cm, 03/13/20 10:31... Start Date: 09/14/20 Stop Date: 10/14/20 Status: Ordered Zithromax Z-Tramaine 250 mg oral tablet See Instructions, as directed on package labeling, # 1 pack/packet, 0 Refills, Maintenance, 08/16/21 16:24:00 EDT, [id number], Partial fill upon patient request if the prescription is for a schedule II opioid drug., 156, cm, 08/16/21 15:58:00... Start Date: 08/16/21 Status: Ordered Problem List Condition Effective Dates [...] Effective Dates Health Status Clinical Service Informant Acute asthma exacerbation Discharge Diagnosis 08/16/21 Vital Signs Most recent to oldest [Reference Range]: 1 Height 156 cm (08/16/21 3:58 PM) Weight 75.9 kg (08/16/21 3:58 PM) Oxygen Saturation [94-100 %] 98 % (08/16/21 3:58 PM) Pulse Rate [55-90 bpm] 74 bpm (08/16/21 3:58 PM) Body Mass Index [18.5-24.99] 31.19 *>HHI* (08/16/21 3:58 PM) Blood Pressure [90-138/55-84 mm Hg] 138/ 82mm Hg (08/16/21 3:58 PM) Temperature [96.8-100.4 DegF] 98.7 DegF (08/16/21 3:58 PM) Mode of Delivery (Oxygen) Room air (08/16/21 3:58 PM) Blood pressure sites Arm, left (08/16/21 3:58 PM) Temperature Route Temporal (08/16/21 3:58 PM) Social History Social History Type Response Smoking Status Never smoker entered on: 10/12/14 Sex
--- OUTSIDE RECORDS SUMMARY | 2024-07-15 15:40 | XMS_ITS | Continuity of Care Document ---
Author Organization [facility] Address [address] [place] [address]- Care Team Providers Care Elevator Constructor Name Role Phone Santi James MD Primary Care Physician Encounter [facility] [place] Date(s): 08/08/22 - 08/15/22 [facility] [address] [place], [place] [address] Encounter Diagnosis Recurrent sinusitis(Discharge Diagnosis) - 08/08/22 Attending Physician: Santi James MD Allergies, Adverse Reactions, Alerts Substance Reaction Severity Status morphine Active Percocet Active Levaquin Hives Active Demerol Active doxycycline [...] (Td) 11/03/99 Given 1Admin Note: done @ [facility],form received 2Result Comment: [07/31/2015] [facility] 3Admin Note: done @ [facility] 4Admin Note: vis sheet given. 5Admin Note: work 6Admin Note: given at [facility] [place] 7Admin Note: per pt, done at [facility] 8Admin Note: done @ [facility], form received 9Admin Note: given at work 10Admin Note: given in the fall 11Result Comment: [id number] 12Result Comment: [08/31/2018] [id number] 13Result Comment: [08/24/2015] given w/out incident 14Admin Note: per pt 15Admin Note: [facility] Medications acetaminophen 650 mg oral tablet, extended release 1 tablet, By Mouth, Every 8 hours, PRN NEEDED FOR PAIN, # 90 tablet, 3 Refills, [facility],156, cm, 04/04/22 7:36:00 EDT, Height, 78.9, kg, 04/04/22 7:36:00 EDT, Dry Weight Start Date: 04/08/22 Status: Ordered Albuterol (Eqv-ProAir HFA) 90 mcg/inh inhalation aerosol 2 puffs, Inhalation, Every 6 hours, PRN Wheezing/Shortness of Breath, # 6.7 Gm, 11 Refills, Maintenance, 02/26/22 9:18:00 EDT, [facility]/pharmacy #[id number], [...] each, 4 Refills, Maintenance, 02/07/22 12:08:00 EDT, [place], [facility]/pharmacy #[id number], Partial fill upon patient request if the prescription is for a schedule II opioid drug., 1 sprays Nares... Start Date: 02/07/22 Stop Date: 07/07/22 Status: Ordered cetirizine 10 mg oral tablet 1 tablet, By Mouth, Daily, # 90 tablet, 3 Refills, [id number], 156, cm, 03/18/22 8:26:00 EDT, Height Start [...] use with CPAP daily at bedtime for GARCAI G47.33, 04/13/21 11:11:00 EDT, Supply Start Date: 04/13/21 Status: Ordered Diflucan 150 mg oral tablet 1 tablet = 150 mg, By Mouth, Once, # 1 tablet, 0 Refills, Soft Stop, 08/08/22 13:22:00 EDT, Tablet,[facility]/pharmacy #4496, Partial fill upon patient request if the prescription is for a schedule II opioid drug., 155, cm, 06/06/22 11:17:00 EDT, Height, 79... Start Date: 08/08/22 Status: Ordered fluticasone 50 mcg/inh nasal spray See Instructions, USE 1 SPRAY IN EACH NOSTRL 2 TIMES A DAY X 5 DAYS, AND THEN DAILY THEREAFTER, # 48 mL, 1 Refills, [facility] STORE 05410, 90, USE 1 SPRAY IN EACH NOSTRL 2 TIMES A DAY X 5 DAYS, AND THEN DAILY THEREAFTER, 156, cm, 04/04/22 7:36:00 EDT, Heigh... Start Date: 04/30/22 Status: Ordered levothyroxine 0.05 mg oral tablet See Instructions, TAKE 1 TABLET BY MOUTH EVERY DAY, # 90 tablet, 1 Refills, [facility] 03491, 156, cm, 02/07/22 11:31:00 EDT, Height Start Date: 02/19/22 Status: Ordered loratadine 10 mg oral tablet 10 mg, 1, tablet, By Mouth, Daily, # 30 tablet, Refills 11, Tot. Refills 11, Maintenance, 02/26/22 9:18:00 EDT, Route to Pharmacy Electronically, [facility]/pharmacy #[id number], Partial fill upon patient requestif the prescription [...] 02/26/22 9:18:00 EDT, Route to Pharmacy Electronically, [facility]/pharmacy #[id number], Partial fill upon patient requestif the prescription is for a schedule II opioid lauro... Start Date: 02/26/22 Status: Ordered Symbicort 160mcg/4.5mcg Inhaler 2, puffs, Inhalation, 2 times a day, in the morning and the evening use with spacer chamber rinse mouth and throat after use, # 54 Gm, Refills 12, Tot. Refills 12, Maintenance, 02/26/22 9:18:00 EDT, Aerosol, Route to Pharmacy Electronically, [id number]... Start Date: 02/26/22 Status: Ordered Vitamin D3 [...] labeling, # 1 pack/packet, 0 Refills, Maintenance, 08/08/22 13:22:00 EDT, [facility]/pharmacy #[id number], Partial fill upon patient request if the prescription is for a schedule II opioid drug., 155, cm, 06/06/22 11:17:00... Start Date: 08/08/22 Status: Ordered Problem List Condition Confirmation Course [...] Dates Health Status Cl inical Service Informant Recurrent sinusitis Discharge Diagnosis 08/08/22 Social History Social History Type Response Smoking Status Never smoker entered on: 10/12/14 Sex Patient Care team information Personnel Name: Santi James MD Address: Address: [address] [place] [address] [facility] [address]
--- OUTSIDE RECORDS SUMMARY | 2024-07-15 15:40 | XMS_ITS | Continuity of Care Document ---
Author Organization [facility] Address [address] [place] [address]- Care Team Providers Care Printer Slotter Helper Name Role Phone Santi James MD Primary Care Physician Encounter [facility] Date(s): 07/31/23 - 08/30/23 [facility] [address] [place], [place] [address] Allergies, Adverse Reactions, Alerts Substance Reaction Severity Status morphine Active predniSONE Anaphylaxis Active Percocet Active Lipitor Myalgia unspecified Muscle cramps Active doxycycline Hives Active nitrofurantoin Pruritus Rash Active benzonatate Speech impediment Active Lopid Muscle cramps Myalgia and myositis unspecified Active Biaxin Upset stomach Active tiZANidine Anaphylaxis Active Topamax Skin rash Active Levaquin Hives [...] (Td) 11/03/99 Given 1Admin Note: done @ [facility],form received 2Result Comment: [07/31/2015] [facility] 3Admin Note: done @ [facility] 4Admin Note: vis sheet given. 5Admin Note: work 6Admin Note: given at [facility] [place] 7Admin Note: per pt, done at [facility] 8Admin Note: done @ [facility], form received 9Admin Note: given at work 10Admin Note: given in the fall 11Result Comment: [id number] 12Result Comment: [08/31/2018] [id number] 13Result Comment: [08/24/2015] given w/out incident 14Admin [...] Refills, Maintenance, 01/17/23 12:44:00 EDT, [facility], 156.15, cm, 11/29/22 14:40:00 EST, Height, 79.5, [...] Refills, Maintenance, 06/10/23 8:18:00 EDT, [facility], 90, USE 1 SPRAY IN BOTH NOSTRILS 2 TIMES A DAY NEEDED FOR ALLERGIES, 155, cm, ... Start Date: 06/10/23 Status: Ordered CeleBREX 100 mg oral capsule 1 capsule = 100 mg, By Mouth, 2 times a day, PRN for pain, # 60 capsule, 4 Refills, Maintenance, 08/12/23 15:29:00 EDT, Capsule, [facility]/pharmacy #[id number], replaces ibuprofen, 155, cm, 08/12/23 15:09:00 EDT, [...] 11 Refills, Soft Stop, 03/14/23 15:31:00 EDT, [facility]/pharmacy #[id number], Partial fill upon patient request if theprescription is for a schedule II opioid drug., 155... Start Date: 03/14/23 Status: Ordered ergocalciferol 01342 iu oral capsule 50,000 International_Units, 1, capsule, By Mouth, Every week, # 12 capsule, Refills 0, Tot. Refills0, Maintenance, 06/12/23 7:24:00 EDT, Route to Pharmacy Electronically, [facility]/pharmacy #[id number], Partialfill upon patient request [...] tablet, 3 Refills, Maintenance, 08/12/23 15:31:00 EDT, [facility]/pharmacy#[id number], 155, cm, 08/12/23 15:09:00 EDT, [...] Personnel Name: Justa HARRIS, Geni Orlando [facility]: [facility] Associate Professional Member Role: Primary Care Nurse Address: Address: [address] [place] [address] [address]- Name: Juju QIU, Talia Position: [facility] RN Member Role: Primary Care Nurse Name: Santi James MD Position: [facility] Physician - Primary Care Member Role: PCP Address: Address: [address] [place] [address] Adult & [place] [address]- Care Team Related Persons Name: PITER BAILEY Address: home [address] [place] [address] Name: DELMIS ADAMS Address: [place] [address] Name: RUPERT PALMER Address: [address] [place] [address] Name: DESIRAE CHAUDHARY Address: [address] [place] [address]
--- OUTSIDE RECORDS SUMMARY | 2024-07-15 15:40 | XMS_ITS | Continuity of Care Document ---
Author Organization [facility] Address [address] [place] [address]- Care Team Providers Care Clinical Documentation Improvement Specialist Name Role Phone Santi James MD Primary Care Physician Encounter [facility] Date(s): 07/02/21 - 08/01/21 [facility] [address] [place], [place] [address] Allergies, Adverse Reactions, Alerts [...] Given 1Admin Note: done @ [facility], form received 2Admin Note: done @ [facility],form received 3Result Comment: [07/31/2015] [facility] 4Admin Note: done @ [facility] 5Admin Note: vis sheet given. 6Admin Note: work 7Admin Note: given at [facility] in [place] 8Admin Note: per pt, done at [facility] 9Admin Note: given at work 10Admin Note: given in the fall 11Result Comment: [id number] 12Result Comment: [08/31/2018] [id number] 13Result Comment: [08/24/2015] given w/out incident 14Admin Note: per pt 15Admin Note: [facility] Medications acetaminophen 650 mg oral tablet, extended release 1 tablet = 650 mg, By Mouth, Every 8 hours, PRN Pain , Moderate, for 30 days, # 90 tablet, 7 Refills, Acute 10/24/21 12:47:00 EST, 02/26/21 12:47:00 EDT, ER Tablet, [facility] #[id number], 156, cm, 03/13/20 10:31:00 EDT, Height, 78.8, kg, ... Start Date: 02/26/21 Stop Date: 10/24/21 Status: Ordered albuterol 0.083% inhalation solution 3 mL = 2.5 mg, Inhalation, Every 6 hours, PRN for wheezing, Dx: asthma, # 100 each, 4 Refills, Maintenance, 12/01/19 12:54:00 EST, Solution, [facility]/pharmacy #2476, 156, cm, 12/01/19 12:40:00 EST, Height, 79.6, kg, 03/10/19 14:10:00 EDT, Dry Weight Start Date: 12/01/19 Stop Date: 04/29/20 Status: Ordered albuterol CFC free 90 mcg/inh inhalation aerosol 2, puffs, Inhalation, Every 4 hours, PRN, # 1 each, Refills 3, Tot. Refills 3, Maintenance, 03/13/21 8:25:00 EDT, Aerosol, Route to Pharmacy Electronically, [id number], [facility] #[id number], 156, cm, 03/13/21 8:16:00 E... Start Date: [...] 3 Refills, Maintenance, 03/13/21 8:26:00 EDT, Tablet, [facility] #[id number], 156, cm, 03/13/21 8:16:00 EDT, Height, 78.8, [...] mL, 0 Refills, Maintenance, 07/25/20 16:52:00 EDT, [place], [facility]/pharmacy #8736, 2 sprays Nares, Both 2 times a day, 156, cm, 03/13/20 10:31:00 EDT, Height, 78.8, kg, 12/20/19 10:35:00 EST, Dry Weight Start Date: 07/25/20 Status: Ordered levothyroxine 0.05 mg oral tablet 1 tablet = 50 mcg, By Mouth, Daily, # 90 tablet, 3 Refills, Maintenance, 03/13/21 8:24:00 EDT, Tablet, [facility] #[id number], 156, cm, 03/13/21 8:16:00 EDT, Height, 78.8, kg, 12/20/19 10:35:00 EST, Dry Weight Start Date: 03/13/21 Stop Date: 03/08/22 Status: Ordered montelukast 10 mg oral tablet See Instructions, TAKE 1 TABLET BY MOUTH DAILY, # 90 tablet, Refills 1, Instructions Replace Required Details, Route to Pharmacy Electronically, [facility] #[id number], 156, cm, 03/13/21 8:35:00EDT, Height, 78.8, kg, [...]
--- OUTSIDE RECORDS SUMMARY | 2024-07-15 15:40 | XMS_ITS | Continuity of Care Document ---
Author Organization [facility] Address [address] [place] [address]- Care Team Providers Care Launching Pad Mechanic Name Role Phone Santi James MD Primary Care Physician Encounter [facility] Date(s): 06/20/22 - 07/20/22 [facility] [address] [place], [place] [address] Attending Physician: Admtr, Ar8 [...] 5Admin Note: work 6Admin Note: given at [facility] 7Admin Note: per pt, done at [facility] 8Admin Note: done @ [facility], form received 9Admin Note: given at work 10Admin Note: given in the fall 11Result Comment: [id number] 12Result Comment: [08/31/2018] [id number] 13Result Comment: [08/24/2015] given w/out incident 14Admin Note: per pt 15Admin Note: [facility] Medications acetaminophen 650 mg oral tablet, extended release 1 tablet, By Mouth, Every 8 hours, PRN NEEDED FOR PAIN, # 90 tablet, 3 Refills, [facility]ORE 43651,156, cm, 04/04/22 7:36:00 EDT, Height, 78.9, kg, 04/04/22 7:36:00 EDT, Dry Weight Start Date: 04/08/22 Status: Ordered Albuterol (Eqv-ProAir HFA) 90 mcg/inh inhalation aerosol 2 puffs, Inhalation, Every 6 hours, PRN Wheezing/Shortness of Breath, # 6.7 Gm, 11 Refills, Maintenance, 02/26/22 9:18:00 EDT, [facility]/pharmacy #[id number], Partial fill upon patient [...] each, 4 Refills, Maintenance, 02/07/22 12:08:00 EDT, [place], [facility]/pharmacy #[id number], Partial fill upon patient request if the prescription is for a schedule II opioid drug., 1 sprays Nares... Start Date: 02/07/22 Stop Date: 07/07/22 Status: Ordered cetirizine 10 mg oral tablet 1 tablet, By Mouth, Daily, # 90 tablet, 3 Refills, [facility] 38316, 156, cm, 03/18/22 8:26:00 EDT, Height Start [...] 0 Refills, Soft Stop, 06/20/22 13:59:00 EDT, Tablet,[facility]/pharmacy #[id number], Partial fill upon patient request if the prescription is for a schedule II opioid drug., 155, cm, 06/06/22 11:17:00 EDT, Height, 79... Start Date: 06/20/22 Status: Ordered fluticasone 50 mcg/inh nasal spray See Instructions, USE 1 SPRAY IN EACH NOSTRL 2 TIMES A DAY X 5 DAYS, AND THEN DAILY THEREAFTER, # 48 mL, 1 Refills, [facility] 49623, 90, USE 1 SPRAY IN EACH NOSTRL 2 TIMES A DAY X 5 DAYS, AND THEN DAILY THEREAFTER, 156, cm, 04/04/22 7:36:00 EDT, Heigh... Start Date: 04/30/22 Status: Ordered levothyroxine 0.05 mg oral tablet See Instructions, TAKE 1 TABLET BY MOUTH EVERY DAY, # 90 tablet, 1 Refills, [facility] 91855, 156, cm, 02/07/22 11:31:00 EDT, Height Start Date: 02/19/22 Status: Ordered loratadine 10 mg oral tablet 10 mg, 1, tablet, By Mouth, Daily, # 30 tablet, Refills 11, Tot. Refills 11, Maintenance, 02/26/22 9:18:00 EDT, Route to Pharmacy Electronically, [facility]/pharmacy #[id number], Partial fill upon patient [...] 02/26/22 9:18:00 EDT, Route to Pharmacy Electronically, [facility]/pharmacy #[id number], Partial fill upon patient [...] 9:18:00 EDT, Aerosol, Route to Pharmacy Electronically, [id number]... Start Date: 02/26/22 Status: Ordered Vitamin D3 [...] pack/packet, 0 Refills, Maintenance, 06/17/22 17:01:00 EDT, [facility]/pharmacy #[id number], Partial fill upon patient [...] wall(Confirmed) Active 1Problem added by Discern Expert Vital [...] Team Personnel Name: Santi James MD Address: [address] [facility] [place] [address]- [place]
--- OUTSIDE RECORDS SUMMARY | 2024-07-15 15:40 | XMS_ITS | Continuity of Care Document ---
Author Organization [facility] Address [address] [place] [address]- Care Team Providers Care Lcpc Name Role Phone Jacob DORAN, Santi Primary Care Physician [facility]): 10[facility]22 - 11/30/22 [facility] [address] [place], [place] [address] Allergies, Adverse Reactions, Alerts Substance Reaction Severity Status morphine Active Percocet Active Lipitor Myalgia unspecified Muscle cramps Active doxycycline Hives Active nitrofurantoin Pruritus Rash Active benzonatate Speech impediment Active Lopid Muscle cramps Myalgia and myositis unspecified Active Biaxin Upset stomach Active Demerol Active Levaquin Hives Active Immunizations Given and [...] 11/03/99 Given 1Admin Note: done @ [facility],form received 2Result Comment: [07/31/2015] [facility] 3Admin Note: done @ [facility] 4Admin Note: vis sheet given. 5Admin Note: work 6Admin Note: given at [facility] [place] 7Admin Note: per pt, done at [facility] 8Admin Note: done @ [facility], form received 9Admin Note: given at work 10Admin Note: given in the fall 11Result Comment: [id number] 12Result Comment: [08/31/2018] [id number] 13Result Comment: [08/24/2015] given w/out incident 14Admin Note: per pt 15Admin Note: [facility] Medications acetaminophen 650 mg oral tablet, extended release 1 tablet, By Mouth, Every 8 hours, PRN NEEDED FOR PAIN, # 90 tablet, 3 Refills, [facility], cm, 04/04/22 7:36:00 EDT, Height, 78.9, kg, 04/04/22 7:36:00 EDT, Dry Weight Start Date: 04/08/22 Status: Ordered Albuterol (Eqv-ProAir HFA) 90 mcg/inh inhalation aerosol 2 puffs, Inhalation, Every 6 hours, PRN Wheezing/Shortness of Breath, # 6.7 Gm, 11 Refills, Maintenance, 08/29/22 9:07:00 EDT, [facility]/pharmacy [...] each, 10 Refills, Maintenance, 11/25/22 15:18:00 EST, [place], [facility]/pharmacy #[id number], replaces 0.15% dose, 1 sprays [...] 16 Gm, 11 Refills, 08/29/22 9:07:00 EDT, [facility]/pharmacy #[id number], USE 1 SPRAY IN EACH NOSTRL 2 TIMES A DAYX 5 DAYS, AND THEN DAILY THEREAFTER, 156.15, cm, 10... Start Date: 08/29/22 Status: Ordered levothyroxine 0.05 mg oral tablet See Instructions, TAKE 1 TABLET BY MOUTH EVERY DAY, # 90 tablet, 1 Refills, 09/01/22 19:54:00 EDT, [facility]/pharmacy #[id number], 156.15, cm, 08/29/22 8:44:00 EDT, Height, 79.5, kg, 06/06/22 11:17:00 EDT, Dry Weight Start Date: 09/01/22 Status: Ordered loratadine 10 mg oral tablet 10 mg, 1, tablet, By Mouth, Daily, # 30 tablet, Refills 11, Tot. Refills 11, Maintenance, 08/29/22 9:07:00 EDT, Route to Pharmacy Electronically, [facility]/pharmacy #[id number], Partial fill upon patient requestif [...] 1 each, 11 Refills, Maintenance, 11/28/2314:07:00 EST, [facility], Partial fill upon patient [...] 08/29/22 9:07:00 EDT, Route to Pharmacy Electronically, [facility]/pharmacy #[id number], Partial fill upon patient requestif the prescription is for a schedule II opioid lauro... Start Date: 08/29/22 Status: Ordered Symbicort 160mcg/4.5mcg Inhaler 2, puffs, Inhalation, 2 times a day, in the morning and the evening use with spacer chamber rinse mouth and throat after use, # 1 each, Refills 5, Tot. Refills 5, Maintenance, 10/17/22 10:03:00 EST, Aerosol, Route to Pharmacy Electronically, [id number]... Start Date: 10/17/22 Status: Ordered Vitamin D3 [...] Personnel Name: Justa HARRIS, Geni Orlando Position: [facility] Associate Professional Member Role: Primary Care Nurse Address: Address: [address] [place] [address]- Name: Santi James MD Position: [facility] Primary Care Physician Member Role: PCP Address: Address: [address] [place] [address]- Care Team Related Persons Name: PITER BAILEY Address: home [address] [place] [address] Name: DELMIS ADAMS Address: home [place], [place] Name: RUPERT PALMER Address: home [address] [place], [place] Name: DESIRAE CHAUDHARY Address: home [address] [employer], [place]
--- OUTSIDE RECORDS SUMMARY | 2024-07-15 15:40 | XMS_ITS | Continuity of Care Document ---
Author Organization [facility] Address [address] [place] [address]- Care Team Providers Care Technical Education Teacher Name Role Phone Jacob DORAN, Santi Primary Care Physician [facility] Date[facility]s): 02/04/23 - 03/06/23 [facility] [address] [place], [place] [address] Allergies, Adverse Reactions, Alerts Substance Reaction Severity Status morphine Active Lopid Muscle cramps Myalgia and myositis unspecified Active Percocet Active doxycycline Hives Active nitrofurantoin Pruritus Rash Active benzonatate Speech impediment Active Biaxin Upset stomach Active Lipitor Myalgia [...] 11/03/99 Given 1Admin Note: done @ [facility],form received 2Result Comment: [07/31/2015] [facility] 3Admin Note: done @ [facility] 4Admin Note: vis sheet given. 5Admin Note: work 6Admin Note: given at [facility] 7Admin Note: per pt, done at [facility] 8Admin Note: done @ [facility], form received 9Admin Note: given at work 10Admin Note: given in the fall 11Result Comment: [id number] 12Result Comment: [08/31/2018] [id number] 13Result Comment: [08/24/2015] given w/out incident 14Admin Note: per pt 15Admin Note: [facility] Medications acetaminophen 650 mg oral tablet, extended release 1 tablet, By Mouth, Every 8 hours, PRN NEEDED FOR PAIN, # 90 tablet, 3 Refills, Maintenance, 01/17/23 12:44:00 EDT, [facility] STORE 63694, 156.15, cm, 11/29/22 14:40:00 EST, Height, 79.5, kg, 06/06/22 11:17:00 EDT, Dry Weight Start Date: 01/17/23 Status: Ordered Albuterol (Eqv-ProAir HFA) 90 mcg/inh inhalation aerosol 2 puffs, Inhalation, Every 6 hours, PRN Wheezing/Shortness of Breath, # 6.7 Gm, 11 Refills, Maintenance, 08/29/22 9:07:00 EDT, [facility]/pharmacy #[id number], Partial fill upon patient [...] each, 10 Refills, Maintenance, 11/25/22 15:18:00 EST, [place], [facility]/pharmacy #[id number], replaces 0.15% dose, 1 sprays [...] 16 Gm, 11 Refills, 08/29/22 9:07:00 EDT, [facility]/pharmacy #[id number], USE 1 SPRAY IN EACH NOSTRL 2 TIMES A DAYX 5 DAYS, AND THEN DAILY THEREAFTER, 156.15, cm, 10... Start Date: 08/29/22 Status: Ordered levothyroxine 0.05 mg oral tablet 1 tablet, By Mouth, Daily, # 90 tablet, 1 Refills, Maintenance, 03/01/23 14:21:00 EDT, [facility] STORE 69426, 156.15, cm, 11/29/22 14:40:00 EST, Height, 79.5, kg, 06/06/22 11:17:00 EDT, Dry Weight Start Date: 03/01/23 Status: Ordered loratadine 10 mg oral tablet 10 mg, 1, tablet, By Mouth, Daily, # 30 tablet, Refills 11, Tot. Refills 11, Maintenance, 08/29/22 9:07:00 EDT, Route to Pharmacy Electronically, [facility]/pharmacy #[id number], Partial fill upon patient [...] 1 each, 11 Refills, Maintenance, 11/28/2314:07:00 EST, [facility], Partial fill upon patient request [...] 08/29/22 9:07:00 EDT, Route to Pharmacy Electronically, [facility]/pharmacy #[id number], Partial fill upon patient requestif the prescription is for a schedule II opioid lauro... Start Date: 08/29/22 Status: Ordered Symbicort 160mcg/4.5mcg Inhaler 2, puffs, Inhalation, 2 times a day, in the morning and the evening use with spacer chamber rinse mouth and throat after use, # 1 each, Refills 5, Tot. Refills 5, Maintenance, 10/17/22 10:03:00 EST, Aerosol, Route to Pharmacy Electronically, [id number]... Start Date: 10/17/22 Status: Ordered Vitamin D3 [...] Role: Primary Care Nurse Address: Address: [address] [place] [address]- [place] Name: Santi James MD Position: [facility] Primary Care Physician Member Role: PCP Address: Address: [address] [facility] [place] [address]- Care Team Related Persons Name: PITER BAILEY Address: home [address] [place] [address] Name: DELMIS ADAMS Address: home [place] [place], [place] Name: RUPERT PALMER Address: home [address] [place], [place] Name: DESIRAE CHAUDHARY Address: home [address] [place], [place]
--- OUTSIDE RECORDS SUMMARY | 2024-07-15 15:40 | XMS_ITS | Continuity of Care Document ---
Author Organization [facility] Address [address] [place] [address]- Care Team Providers Care Sales Representative [employer] Name Role Phone Jacob DORAN, Santi Primary Care Physician [facility] Date[facility]s): 01/28/24 - 02/27/24 [facility] [address] [place], [place] [address] Allergies, Adverse Reactions, Alerts Substance Reaction Severity Status morphine Active Percocet Active doxycycline Hives Active nitrofurantoin Pruritus Rash Active predniSONE Anaphylaxis Active benzonatate Speech impediment Active Lopid Muscle cramps Myalgia and myositis unspecified Active Biaxin Upset stomach Active Topamax Skin rash Active Demerol Active ezetimibe Breast painful Active Lipitor Myalgia unspecified Muscle cramps Active Levaquin Hives Active tiZANidine Anaphylaxis Active Immunizations Given and [...] 08/22/08 Gi cristel pneumococcal 20-valent conjugate vaccine 8/28/23 Recorded Measles/Mumps/Rubella [...] 11/03/99 Given 1Admin Note: done @ [facility],form received 2Result Comment: [07/31/2015] [facility] 3Admin Note: done @ [facility] 4Admin Note: vis sheet given. 5Admin Note: work 6Admin Note: given at [facility] [place] 7Admin Note: per pt, done at [facility] 8Admin Note: done @ [facility], form received 9Admin Note: given at work 10Admin Note: given in the fall 11Result Comment: [id number] 12Result Comment: [08/31/2018] [id number] 13Result Comment: [08/24/2015] given w/out incident 14Admin [...] tablet, 3 Refills, Maintenance, 01/17/23 12:44:00 EDT, [facility], 156.15, cm, 11/29/22 14:40:00 EST, Height, 79.5, [...] 90 Unknown,1 Refills, Maintenance, 06/10/23 8:18:00 EDT, [facility] 384[facility], 90, USE 1 SPRAY IN BOTH NOSTRILS [...] Refills, Soft Stop, 03/14/23 15:31:00 EDT, [id number], Partial fill upon patient request if theprescription is for a schedule II opioid drug., 155... Start Date: 03/14/23 Status: Ordered fexofenadine 180 mg oral tablet 1 tablet = 180 mg, By Mouth, Daily, PRN for allergy symptoms, # 90 tablet, 4 Refills, Maintenance, 09/02/23 11:04:00 EDT, Tablet, [facility]/pharmacy #[id number], Partial fill upon patient request if the prescription is for a schedule II opioid drug., 155, cm, ... Start Date: 09/02/23 Stop Date: 11/25/24 Status: Ordered fluconazole 150 mg oral tablet 1 tablet = 150 mg, By Mouth, Once, repeat dose if still having symptoms in 72 hours, # 2 tablet, 0 Refills, Soft Stop, 12/22/23 13:26:00 EST, Tablet, [facility]/pharmacy #[id number], Partial fill upon patient request if the prescription is for a schedule II opioid... Start Date: 12/22/23 Status: Ordered ibuprofen 800 mg oral tablet 1, tablet, By Mouth, 3 times a day, X30 DAYS, STOP ASPIRIN WHILE TAKING THIS., # 90 tablet, Refills1, Maintenance, 12/04/23 7:25:00 EST, Route to Pharmacy Electronically, [facility], 155, cm, 11/18/23 16:29:00 EST, Height, 83.7, kg, 11/06/23 9:0... Start Date: 12/04/23 Status: Ordered levothyroxine 0.05 mg oral tablet 1 tablet, By Mouth, Daily, # 90 tablet, 3 Refills, Maintenance, 08/12/23 15:31:00 EDT, [facility]/pharmacy#[id number], 155, cm, 08/12/23 15:09:00 EDT, Height, 83.9, kg, 03/13/23 4:46:00 EDT, Dry Weight Start Date: 08/12/23 Stop Date: 08/06/24 Status: Ordered montelukast 10 mg oral tablet 1, tablet, By Mouth, Daily, # 90 tablet, Refills 3, Maintenance, 11/23/23 8:40:00 EST, Route to Pharmacy Electronically, [facility], 155, cm, 11/18/23 16:29:00 EST, Height, 83.7, [...] Member Role: Primary Care Nurse Address: Address: [address] [place] [address] [address]- Name: Talia Matute RN Position: [facility] RN Member Role: Primary Care Nurse Name: Darshan Benz RN Position: [facility] Outreach Member Role: Primary Care Nurse Name: Santi James MD Position: [facility] Physician - Primary Care Member Role: PCP Address: Address: [address] [place] [address] Adult & [place] [address]- Care Team Related Persons Name: PITER BAILEY Address: home [address] [place] [address] Name: DELMIS ADAMS Address: home [place] [place], [place] Name: RUPERT PALMER Address: home [address] [place], [place] Name: DESIRAE CHAUDHARY Address: home [address] [place], [place]
--- OUTSIDE RECORDS SUMMARY | 2024-07-15 15:40 | XMS_ITS | Continuity of Care Document ---
Author Organization [facility] Address [address] [place] [address]- Care Team Providers Care Manager Consumer Insights Name Role Phone Jacob DORAN, Santi Primary Care Physician [facility] Date[facility]s): 04/08/22 - 05/08/22 [facility] [address] [place], [place] [address] [place] Allergies, Adverse Reactions, Alerts [...] (Td) 11/03/99 Given 1Admin Note: done @ [facility],form received 2Result Comment: [07/31/2015] [facility] 3Admin Note: done @ [facility] 4Admin Note: vis sheet given. 5Admin Note: work 6Admin Note: given at [facility] [place] 7Admin Note: per pt, done at [facility] 8Admin Note: done @ [facility], form received 9Admin Note: given at work 10Admin Note: given in the fall 11Result Comment: [id number] 12Result Comment: [08/31/2018] [id number] 13Result Comment: [08/24/2015] given w/out incident 14Admin Note: per pt 15Admin Note: [facility] Medications acetaminophen 650 mg oral tablet, extended release 1 tablet, By Mouth, Every 8 hours, PRN NEEDED FOR PAIN, # 90 tablet, 3 Refills, [facility] STORE 98474,156, cm, 04/04/22 7:36:00 EDT, Height, 78.9, kg, 04/04/22 7:36:00 EDT, Dry Weight Start Date: 04/08/22 Status: Ordered Albuterol (Eqv-ProAir HFA) 90 mcg/inh inhalation aerosol 2 puffs, Inhalation, Every 6 hours, PRN Wheezing/Shortness of Breath, # 6.7 Gm, 11 Refills, Maintenance, 02/26/22 9:18:00 EDT, [facility]/pharmacy #[id number], Partial fill upon patient [...] each, 4 Refills, Maintenance, 02/07/22 12:08:00 EDT, [place], [facility]/pharmacy #2476, Partial fill upon patient request if the prescription is for a schedule II opioid drug., 1 sprays Nares... Start Date: 02/07/22 Stop Date: 07/07/22 Status: Ordered cetirizine 10 mg oral tablet 1 tablet, By Mouth, Daily, # 90 tablet, 3 Refills, [facility] STORE 21820, 156, cm, 03/18/22 8:26:00 EDT, Height Start [...] 0 Refills, Soft Stop, 04/08/22 13:39:00 EDT, Tablet,[facility]/pharmacy #2956, Partial fill upon patient request if the prescription is for a schedule II opioid drug., 156, cm, 04/04/22 7:36:00 EDT, Height, 78.... Start Date: 04/08/22 Status: Ordered fluticasone 50 mcg/inh nasal spray See Instructions, USE 1 SPRAY IN EACH NOSTRL 2 TIMES A DAY X 5 DAYS, AND THEN DAILY THEREAFTER, # 48 mL, 1 Refills, [facility] STORE 42565, 90, USE 1 SPRAY IN EACH NOSTRL 2 TIMES A DAY X 5 DAYS, AND THEN DAILY THEREAFTER, 156, cm, 04/04/22 7:36:00 EDT, [place]... Start Date: 04/30/22 Status: Ordered levothyroxine 0.05 mg oral tablet See Instructions, TAKE 1 TABLET BY MOUTH EVERY DAY, # 90 tablet, 1 Refills, [facility] STORE 27885, 156, cm, 02/07/22 11:31:00 EDT, Height Start Date: 02/19/22 Status: Ordered loratadine 10 mg oral tablet 10 mg, 1, tablet, By Mouth, Daily, # 30 tablet, Refills 11, Tot. Refills 11, Maintenance, 02/26/22 9:18:00 EDT, Route to Pharmacy Electronically, [facility]/pharmacy #[id number], Partial fill upon patient [...] EDT, Route to Pharmacy Electronically, [facility]/pharmacy #[id number], Partial fill upon patient [...] 9:18:00 EDT, Aerosol, Route to Pharmacy Electronically, [id number]... Start Date: 02/26/22 Status: Ordered Vitamin D3 [...] pack/packet, 0 Refills, Maintenance, 04/08/22 12:19:00 EDT, [facility]/pharmacy #[id number], Partial fill upon patient [...]
--- OUTSIDE RECORDS SUMMARY | 2024-07-15 15:40 | XMS_ITS | Continuity of Care Document ---
Author Organization [facility] Address [address] [place] [address]- Care Team Providers Care Sand Bobber Name Role Phone Santi James MD Primary Care Physician [place] [facility]s): 08/02/21 - 08/09/21 [facility] [address] [place] [address]- Encounter Diagnosis Sinus congestion(Discharge Diagnosis) - 08/02/21 Attending Physician: Gabby PROPERTY FIELD INSPECTOR, Jo Ann Allergies, Adverse Reactions, Alerts Substance Reaction Severity Status morphine Active Percocet Active Levaquin Hives Active doxycycline Hives Active [...] 11/03/99 Given 1Admin Note: done @ [facility], form received 2Admin Note: done @ [facility],form received 3Result Comment: [07/31/2015] [facility] 4Admin Note: done @ [facility] 5Admin Note: vis sheet given. 6Admin Note: work 7Admin Note: given at [facility] [place] 8Admin Note: per pt, done at [facility] 9Admin Note: given at work 10Admin Note: given in the fall 11Result Comment: [id number] 12Result Comment: [08/31/2018] [id number] 13Result Comment: [08/24/2015] given w/out incident 14Admin Note: per pt 15Admin Note: [facility] Medications acetaminophen 650 mg oral tablet, extended release 1 tablet = 650 mg, By Mouth, Every 8 hours, PRN Pain , Moderate, for 30 days, # 90 tablet, 7 Refills, Acute 10/24/21 12:47:00 EST, 02/26/21 12:47:00 EDT, ER Tablet, [facility] #[id number], 156, cm, 03/13/20 10:31:00 EDT, Height, 78.8, kg, ... Start Date: 02/26/21 Stop Date: 10/24/21 Status: Ordered albuterol 0.083% inhalation solution 3 mL = 2.5 mg, Inhalation, Every 6 hours, PRN for wheezing, Dx: asthma, # 100 each, 4 Refills, Maintenance, 12/01/19 12:54:00 EST, Solution, [facility]/pharmacy #[id number], 156, cm, 12/01/19 12:40:00 EST, Height, 79.6, kg, 03/10/19 14:10:00 EDT, Dry Weight Start Date: 12/01/19 Stop Date: 04/29/20 Status: Ordered albuterol CFC free 90 mcg/inh inhalation aerosol 2, puffs, Inhalation, Every 4 hours, PRN, # 1 each, Refills 3, Tot. Refills 3, Maintenance, 03/13/21 8:25:00 EDT, Aerosol, Route to Pharmacy Electronically, [id number], [facility] #[id number], 156, cm, 03/13/21 8:16:00 E... Start Date: [...] 3 Refills, Maintenance, 03/13/21 8:26:00 EDT, Tablet, [facility] #[id number], 156, cm, 03/13/21 8:16:00 EDT, Height, 78.8, [...] use with CPAP daily at bedtime for GRACIA G47.33, 04/13/21 11:11:00 EDT, Supply Start Date: 04/13/21 Status: Ordered Flonase 50 mcg/inh nasal spray 1 sprays, Nares, Both, 2 times a day, in each nostril X 5 Days, and then daily thereafter, # 16 Gm,0 Refills, Maintenance, 08/02/21 11:22:00 EDT, [place], [facility] #[id number], Partial fill upon patient request if the prescription is for a sched... Start Date: 08/02/21 Status: Ordered ipratropium nasal 21 mcg/inh spray 2 sprays, Nares, Both, 2 times a day, # 30 mL, 0 Refills, Maintenance, 07/25/20 16:52:00 EDT, [place], [facility]/pharmacy #7516, 2 sprays Nares, Both 2 times a day, 156, cm, 03/13/20 10:31:00 EDT, Height, 78.8, kg, 12/20/19 10:35:00 EST, Dry Weight Start Date: 07/25/20 Status: Ordered levothyroxine 0.05 mg oral tablet 1 tablet = 50 mcg, By Mouth, Daily, # 90 tablet, 3 Refills, Maintenance, 03/13/21 8:24:00 EDT, Tablet, [facility] #[id number], 156, cm, 03/13/21 8:16:00 EDT, Height, 78.8, kg, 12/20/19 10:35:00 EST, Dry Weight Start Date: 03/13/21 Stop Date: 03/08/22 Status: Ordered montelukast 10 mg oral tablet See Instructions, TAKE 1 TABLET BY MOUTH DAILY, # 90 tablet, Refills 1, Instructions Replace Required Details, [id number] 156, cm, 03/13/21 8:35:00EDT, Height, 78.8, kg, [...] 0 Refills, Maintenance, 09/14/20 8:47:00 EST, [facility], 1 puffs Inhalation 2 times a day,x30 [...] Effective Dates Health Status Clinical Service Informant Sinus congestion Discharge Diagnosis 08/02/21 Social History Social History Type Response Smoking Status Never smoker entered on: 10/12/14 Sex
--- OUTSIDE RECORDS SUMMARY | 2024-07-15 15:40 | XMS_ITS | Continuity of Care Document ---
Author Organization [facility] Address [address] [place] [address]- Care Team Providers Care Dust Puller Name Role Phone Santi James MD Primary Care Physician [facility]): 05/26/24 - 06/25/24 [facility] [address] [place] [address]- Allergies, Adverse Reactions, Alerts Substance Reaction Severity [...] (Td) 11/03/99 Given 1Admin Note: done @ [facility],form received 2Result Comment: [07/31/2015] [facility] 3Admin Note: done @ [facility] 4Admin Note: vis sheet given. 5Admin Note: work 6Admin Note: given at [facility] in [place] 7Admin Note: per pt, done at [facility] 8Admin Note: done @ [facility], form received 9Admin Note: given at work 10Admin Note: given in the fall 11Result Comment: [id number] 12Result Comment: [08/31/2018] [id number] 13Result Comment: [08/24/2015] given w/out incident 14Admin [...] tablet, 3 Refills, Maintenance, 01/17/23 12:44:00 EDT, [facility], 156.15, cm, 11/29/22 14:40:00 EST, Height, 79.5, [...] 90 Unknown,1 Refills, Maintenance, 06/10/23 8:18:00 EDT, [facility], 90, USE 1 SPRAY IN BOTH NOSTRILS [...] 0 Refills, Maintenance, 05/20/24 13:48:00 EDT, Tablet, [facility]/pharmacy #[id number], Partial fill upon patient request if the prescription is for a schedule... Start Date: 05/20/24 Status: Ordered EpiPen 2-Tramaine 0.3 mg injectable kit = 0.3 mg, Intramuscular, Once, PRN Anaphylactic Reaction, may repeat if necessary, # 1 each, 11 Refills, Soft Stop, 03/14/23 15:31:00 EDT, [facility]/pharmacy #[id number], Partial fill upon patient request if theprescription is for a schedule II opioid drug., 155... Start Date: 03/14/23 Status: Ordered fexofenadine 180 mg oral tablet 1 tablet = 180 mg, By Mouth, Daily, PRN for allergy symptoms, # 90 tablet, 4 Refills, Maintenance, 09/02/23 11:04:00 EDT, Tablet, [facility]/pharmacy #[id number], Partial fill upon patient request if the prescription is for a schedule II opioid drug., 155, cm, ... Start Date: 09/02/23 Stop Date: 11/25/24 Status: Ordered ibuprofen 800 mg oral tablet See Instructions, PLEASE SEE ATTACHED FOR DETAILED DIRECTIONS, # 90 tablet, Refills 2, Maintenance,06/25/24 16:54:00 EDT, Instructions Replace Required Details, [facility]ically[facility], 155, cm, 05/24/24 13:16:00 EDT, Height... Start Date: 06/25/24 Status: Ordered levothyroxine 0.05 mg oral tablet 1 tablet, By Mouth, Daily, # 90 tablet, 3 Refills, Maintenance, 08/12/23 15:31:00 EDT, [facility]/pharmacy#[id number], 155, cm, 08/12/23 15:09:00 EDT, Height, 83.9, kg, 03/13/23 4:46:00 EDT, Dry Weight Start Date: 08/12/23 Stop Date: 08/06/24 Status: Ordered montelukast 10 mg oral tablet 1, tablet, By Mouth, Daily, # 90 tablet, Refills 3, Maintenance, 11/23/23 8:40:00 EST, Route to Pharmacy Electronically, [facility], 155, cm, 11/18/23 16:29:00 EST, Height, 83.7, [...] team information Care Team Personnel Name: Justa PIPE ROLLER, Geni Orlando Position: [facility] Associate Professional Member Role: Primary Care Nurse Name: Talia Matute RN Position: [facility] RN Member Role: Primary Care Nurse Name: Darshan Benz RN Position: [facility] Outreach Member Role: Primary Care Nurse Name: Santi James MD Position: [facility] Physician - Primary Care Member Role: PCP Address: Address: [address] [place] [address] Adult [place] [address]- Care Team Related Persons Name: PITER BAILEY Address: home [address] [place] [address] Name: DELMIS ADAMS Address: [place] [address] Name: RUPERT PALMER Address: [address] [place] [address] Name: DESIRAE CHAUDHARY Address: home [address] [place], [place]
--- OUTSIDE RECORDS SUMMARY | 2024-07-15 15:40 | XMS_ITS | Continuity of Care Document ---
Author Organization [facility] Address [address] [place] [address]- Care Team Providers Care Cell Coverer Name Role Phone Santi James MD Primary Care Physician [facility] Date[facility]s): 11/[facility]/22 - 12/05/22 [facility] [address] [place], [place] [address] [...] 1Admin Note: done @ [facility],form received 2Result Comment: [07/31/2015] [facility] 3Admin Note: done @ [facility] 4Admin Note: vis sheet given. 5Admin Note: work 6Admin Note: given at [facility] in [place] 7Admin Note: per pt, done at [facility] 8Admin Note: done @ [facility], form received 9Admin Note: given at work 10Admin Note: given in the fall 11Result Comment: [id number] 12Result Comment: [08/31/2018] [id number] 13Result Comment: [08/24/2015] given w/out incident 14Admin Note: per pt 15Admin Note: [facility] Medications acetaminophen 650 mg oral tablet, extended release 1 tablet, By Mouth, Every 8 hours, PRN NEEDED FOR PAIN, # 90 tablet, 3 Refills, [facility],156, cm, 04/04/22 7:36:00 EDT, Height, 78.9, kg, 04/04/22 7:36:00 EDT, Dry Weight Start Date: 04/08/22 Status: Ordered Albuterol (Eqv-ProAir HFA) 90 mcg/inh inhalation aerosol 2 puffs, Inhalation, Every 6 hours, PRN Wheezing/Shortness of Breath, # 6.7 Gm, 11 Refills, Maintenance, 08/29/22 9:07:00 EDT, [facility]/pharmacy #[id number], Partial fill upon patient [...] each, 10 Refills, Maintenance, 11/25/22 15:18:00 EST, [place], [facility]/pharmacy #[id number], replaces 0.15% dose, 1 [...] 16 Gm, 11 Refills, 08/29/22 9:07:00 EDT, [facility]/pharmacy #[id number], USE 1 SPRAY IN EACH NOSTRL 2 TIMES A DAYX 5 DAYS, AND THEN DAILY THEREAFTER, 156.15, cm, 10... Start Date: 08/29/22 Status: Ordered levothyroxine 0.05 mg oral tablet See Instructions, TAKE 1 TABLET BY MOUTH EVERY DAY, # 90 tablet, 1 Refills, 09/01/22 19:54:00 EDT, [facility]/pharmacy #[id number], 156.15, cm, 08/29/22 8:44:00 EDT, Height, 79.5, kg, 06/06/22 11:17:00 EDT, Dry Weight Start Date: 09/01/22 Status: Ordered loratadine 10 mg oral tablet 10 mg, 1, tablet, By Mouth, Daily, # 30 tablet, Refills 11, Tot. Refills 11, Maintenance, 08/29/22 9:07:00 EDT, Route to Pharmacy Electronically, [facility]/pharmacy #[id number], Partial fill upon patient [...] 1 each, 11 Refills, Maintenance, 11/28/2314:07:00 EST, [facility], Partial fill upon patient [...] 08/29/22 9:07:00 EDT, Route to Pharmacy Electronically, [facility]/pharmacy #[id number], Partial fill upon patient requestif the prescription is for a schedule II opioid lauro... Start Date: 08/29/22 Status: Ordered Symbicort 160mcg/4.5mcg Inhaler 2, puffs, Inhalation, 2 times a day, in the morning and the evening use with spacer chamber rinse mouth and throat after use, # 1 each, Refills 5, Tot. Refills 5, Maintenance, 10/17/22 10:03:00 EST, Aerosol, Route to Pharmacy Electronically, [id number]... Start Date: 10/17/22 Status: Ordered Vitamin D3 [...] Personnel Name: Justa HARRIS, Geni Orlando Position: [facility] Associate Professional Member Role: Primary Care Nurse Address: Address: [address] [place] [address]- Name: Santi James MD Position: [facility] Primary Care Physician Member Role: PCP Address: Address: [address] [place] [address]- Care Team Related Persons Name: PITER BAILEY Address: home [address] [place] [address] Name: DELMIS ADAMS Address: home [place], [place] Name: RUPERT PALMER Address: home [address] [place], [place] Name: DESIRAE CHAUDHARY Address: home [address] [place], [place]
--- OUTSIDE RECORDS SUMMARY | 2024-07-15 15:40 | XMS_ITS | Continuity of Care Document ---
Author Organization [facility] Address [address] [place] [address]- Care Team Providers Care Home Health Provider Name Role Phone Jacob DORAN, Santi Primary Care Physician [facility]): 08/16/21 - 09/15/21 [facility] [address] [place], [place] [address] Allergies, Adverse Reactions, Alerts Substance [...] 5Admin Note: work 6Admin Note: given at [facility] in [place] 7Admin Note: per pt, done at [facility] 8Admin Note: done @ [facility], form received 9Admin Note: given at work 10Admin Note: given in the fall 11Result Comment: [id number] 12Result Comment: [08/31/2018] [id number] 13Result Comment: [08/24/2015] given w/out incident 14Admin Note: per pt 15Admin Note: [facility] Medications acetaminophen 650 mg oral tablet, extended release 1 tablet = 650 mg, By Mouth, Every 8 hours, PRN Pain , Moderate, for 30 days, # 90 tablet, 7 Refills, Acute 10/24/21 12:47:00 EST, 02/26/21 12:47:00 EDT, ER Tablet, [facility] #[id number], 156, cm, 03/13/20 10:31:00 EDT, Height, 78.8, kg, ... Start Date: 02/26/21 Stop Date: 10/24/21 Status: Ordered albuterol 0.083% inhalation solution 3 mL = 2.5 mg, Inhalation, Every 6 hours, PRN for wheezing, Dx: asthma, # 100 each, 4 Refills, Maintenance, 12/01/19 12:54:00 EST, Solution, [facility]/pharmacy #2476, 156, cm, 12/01/19 12:40:00 EST, Height, 79.6, kg, 03/10/19 14:10:00 EDT, Dry Weight Start Date: 12/01/19 Stop Date: 04/29/20 Status: Ordered albuterol CFC free 90 mcg/inh inhalation aerosol 2, puffs, Inhalation, Every 4 hours, PRN, # 1 each, Refills 3, Tot. Refills 3, Maintenance, 03/13/21 8:25:00 EDT, Aerosol, Route to Pharmacy Electronically, [id number], [facility] #[id number], 156, cm, 03/13/21 8:16:00 E... Start Date: [...] 3 Refills, Maintenance, 03/13/21 8:26:00 EDT, Tablet, [facility] #[id number], 156, cm, 03/13/21 8:16:00 EDT, Height, 78.8, [...] 16 Gm,0 Refills, Maintenance, 08/02/21 11:22:00 EDT, [place], [facility] #[id number], Partial fill upon patient request if the prescription is for a sched... Start Date: 08/02/21 Status: Ordered ipratropium nasal 21 mcg/inh spray 2 sprays, Nares, Both, 2 times a day, # 30 mL, 0 Refills, Maintenance, 07/25/20 16:52:00 EDT, [place], [facility]/pharmacy #[id number], 2 sprays Nares, Both 2 times a day, 156, cm, 03/13/20 10:31:00 EDT, Height, 78.8, kg, 12/20/19 10:35:00 EST, Dry Weight Start Date: 07/25/20 Status: Ordered levothyroxine 0.05 mg oral tablet 1 tablet = 50 mcg, By Mouth, Daily, # 90 tablet, 3 Refills, Maintenance, 03/13/21 8:24:00 EDT, Tablet, [facility] #66092, 156, cm, 03/13/21 8:16:00 EDT, Height, 78.8, kg, 12/20/19 10:35:00 EST, Dry Weight Start Date: 03/13/21 Stop Date: 03/08/22 Status: Ordered montelukast 10 mg oral tablet See Instructions, TAKE 1 TABLET BY MOUTH DAILY, # 90 tablet, Refills 1, Instructions Replace Required Details, Route to Pharmacy Electronically, [facility] #[id number], 156, cm, 03/13/21 8:35:00EDT, Height, 78.8, kg, 12/20/19 10:35:00 EST, Dry W... Start Date: 06/26/21 Status: Ordered multivitamin Multiple Vitamins oral tablet, chewable 1 tablet, By Mouth, Daily, # 30 tablet, 0 Refills, Maintenance, 12/09/19 10:30:00 EST Start Date: 12/09/19 Stop Date: 01/08/20 Status: Ordered Omeprazole By Mouth, Daily, 0 Refills, Maintenance, 08/23/19 8:18:58 EDT Start Date: 08/23/19 Status: Ordered Symbicort 160mcg/4.5mcg Inhaler 2, puffs, Inhalation, 2 times a day, in the morning and the evening use with spacer chamber rinse mouth and throat after use, # 54 Gm, Refills 12, Tot. Refills 12, Maintenance, 09/04/21 9:38:00 EDT, Aerosol, Route to Pharmacy Electronically, [id number]... Start Date: 09/04/21 Status: Ordered Zithromax Z-Tramaine 250 mg oral tablet See Instructions, as directed on package labeling, # 1 pack/packet, 0 Refills, Maintenance, 08/16/21 16:24:00 EDT, [facility]/pharmacy #[id number], Partial fill upon patient request if the [...]
--- OUTSIDE RECORDS SUMMARY | 2024-07-15 15:40 | XMS_ITS | Continuity of Care Document ---
Author Organization [facility] Address [address] [place] [address]- Care Team Providers Care Price Analyst Name Role Phone Santi James MD Primary Care Physician [facility]s): 06/06/22 - 07/06/22 [facility] [address] [place], [place] [address] Allergies, Adverse Reactions, Alerts [...] (Td) 11/03/99 Given 1Admin Note: done @ [facility],form received 2Result Comment: [07/31/2015] [facility] 3Admin Note: done @ [facility] 4Admin Note: vis sheet given. 5Admin Note: work 6Admin Note: given at [facility] in [place] 7Admin Note: per pt, done at [facility] 8Admin Note: done @ [facility], form received 9Admin Note: given at work 10Admin Note: given in the fall 11Result Comment: [id number] 12Result Comment: [08/31/2018] [id number] 13Result Comment: [08/24/2015] given w/out incident 14Admin Note: per pt 15Admin Note: [facility] Medications acetaminophen 650 mg oral tablet, extended release 1 tablet, By Mouth, Every 8 hours, PRN NEEDED FOR PAIN, # 90 tablet, 3 Refills, [facility] 614[facility],156, cm, 04/04/22 7:36:00 EDT, Height, 78.9, kg, 04/04/22 7:36:00 EDT, Dry Weight Start Date: 04/08/22 Status: Ordered Albuterol (Eqv-ProAir HFA) 90 mcg/inh inhalation aerosol 2 puffs, Inhalation, Every 6 hours, PRN Wheezing/Shortness of Breath, # 6.7 Gm, 11 Refills, Maintenance, 02/26/22 9:18:00 EDT, [facility]/pharmacy #[id number], Partial fill upon patient request [...] each, 4 Refills, Maintenance, 02/07/22 12:08:00 EDT, [place], [facility]/pharmacy #[id number], Partial fill upon patient request if the prescription is for a schedule II opioid drug., 1 sprays Nares... Start Date: 02/07/22 Stop Date: 07/07/22 Status: Ordered cetirizine 10 mg oral tablet 1 tablet, By Mouth, Daily, # 90 tablet, 3 Refills, [facility], 156, cm, 03/18/22 8:26:00 EDT, Height Start [...] 0 Refills, Soft Stop, 06/20/22 13:59:00 EDT, Tablet,[facility]/pharmacy #3536, Partial fill upon patient request if the prescription is for a schedule II opioid drug., 155, cm, 06/06/22 11:17:00 EDT, Height, 79... Start Date: 06/20/22 Status: Ordered fluticasone 50 mcg/inh nasal spray See Instructions, USE 1 SPRAY IN EACH NOSTRL 2 TIMES A DAY X 5 DAYS, AND THEN DAILY THEREAFTER, # 48 mL, 1 Refills, [facility] 23319, 90, USE 1 SPRAY IN EACH NOSTRL 2 TIMES A DAY X 5 DAYS, AND THEN DAILY THEREAFTER, 156, cm, 04/04/22 7:36:00 EDT, [place]... Start Date: 04/30/22 Status: Ordered levothyroxine 0.05 mg oral tablet See Instructions, TAKE 1 TABLET BY MOUTH EVERY DAY, # 90 tablet, 1 Refills, [facility]26, 156, cm, 02/07/22 11:31:00 EDT, Height Start Date: 02/19/22 Status: Ordered loratadine 10 mg oral tablet 10 mg, 1, tablet, By Mouth, Daily, # 30 tablet, Refills 11, Tot. Refills 11, Maintenance, 02/26/22 9:18:00 EDT, Route to Pharmacy Electronically, [facility]/pharmacy #[id number], Partial fill upon patient requestif [...] 02/26/22 9:18:00 EDT, Route to Pharmacy Electronically, [facility]/pharmacy #[id number], Partial fill upon patient requestif [...] 9:18:00 EDT, Aerosol, Route to Pharmacy Electronically, [id number]... Start Date: 02/26/22 Status: Ordered Vitamin D3 [...] pack/packet, 0 Refills, Maintenance, 06/17/22 17:01:00 EDT, [facility]/pharmacy #[id number], Partial fill upon patient request [...] Team Personnel Name: Santi James MD Address: [address] [place] [address] Adult & Pediatric Medicine [address]
--- OUTSIDE RECORDS SUMMARY | 2024-07-15 15:40 | XMS_ITS | Continuity of Care Document ---
Author Organization [facility] Address [address] [place] [address]- Care Team Providers Care Artificial Stone Setter Name Role Phone Santi James MD Primary Care Physician [facility] - 12/06/22 [facility] [address] [place], [place] [address] Attending Physician: Santi James MD Allergies, [...] (Td) 11/03/99 Given 1Admin Note: done @ [facility],form received 2Result Comment: [07/31/2015] [facility] 3Admin Note: done @ [facility] 4Admin Note: vis sheet given. 5Admin Note: work 6Admin Note: given at [facility] in [place] 7Admin Note: per pt, done at [facility] 8Admin Note: done @ [facility], form received 9Admin Note: given at work 10Admin Note: given in the fall 11Result Comment: [id number] 12Result Comment: [08/31/2018] [id number] 13Result Comment: [08/24/2015] given w/out incident 14Admin Note: per pt 15Admin Note: [facility] Medications acetaminophen 650 mg oral tablet, extended release 1 tablet, By Mouth, Every 8 hours, PRN NEEDED FOR PAIN, # 90 tablet, 3 Refills, [facility] STORE 10458,156, cm, 04/04/22 7:36:00 EDT, Height, 78.9, kg, 04/04/22 7:36:00 EDT, Dry Weight Start Date: 04/08/22 Status: Ordered Albuterol (Eqv-ProAir HFA) 90 mcg/inh inhalation aerosol 2 puffs, Inhalation, Every 6 hours, PRN Wheezing/Shortness of Breath, # 6.7 Gm, 11 Refills, Maintenance, 08/29/22 9:07:00 EDT, [facility]/pharmacy #[id number], Partial fill upon patient request [...] each, 10 Refills, Maintenance, 11/25/22 15:18:00 EST, Trade, [facility]/pharmacy #[id number], replaces 0.15% dose, 1 sprays [...] 16 Gm, 11 Refills, 08/29/22 9:07:00 EDT, [facility]/pharmacy #[id number], USE 1 SPRAY IN EACH NOSTRL 2 TIMES A DAYX 5 DAYS, AND THEN DAILY THEREAFTER, 156.15, cm, 10... Start Date: 08/29/22 Status: Ordered levothyroxine 0.05 mg oral tablet See Instructions, TAKE 1 TABLET BY MOUTH EVERY DAY, # 90 tablet, 1 Refills, 09/01/22 19:54:00 EDT, [facility]/pharmacy #[id number], 156.15, cm, 08/29/22 8:44:00 EDT, Height, 79.5, kg, 06/06/22 11:17:00 EDT, Dry Weight Start Date: 09/01/22 Status: Ordered loratadine 10 mg oral tablet 10 mg, 1, tablet, By Mouth, Daily, # 30 tablet, Refills 11, Tot. Refills 11, Maintenance, 08/29/22 9:07:00 EDT, Route to Pharmacy Electronically, [facility]/pharmacy #[id number], Partial fill upon patient requestif [...] each, 11 Refills, Maintenance, 11/28/2314:07:00 EST, [facility], Partial fill upon patient request [...] 08/29/22 9:07:00 EDT, Route to Pharmacy Electronically, [facility]/pharmacy #[id number], Partial fill upon patient requestif the prescription is for a schedule II opioid lauro... Start Date: 08/29/22 Status: Ordered Symbicort 160mcg/4.5mcg Inhaler 2, puffs, Inhalation, 2 times a day, in the morning and the evening use with spacer chamber rinse mouth and throat after use, # 1 each, Refills 5, Tot. Refills 5, Maintenance, 10/17/22 10:03:00 EST, Aerosol, Route to Pharmacy Electronically, [id number]... Start Date: 10/17/22 Status: Ordered Vitamin D3 [...] to oldest [Reference Range]: 1 2 Height 156.15 cm (11/29/22 2:40 PM) 156.15 cm (11/29/22 2:26 PM) Weight 83.1 kg (11/29/22 2:26 PM) Oxygen Saturation [94-100 %] 99 % (11/29/22 2:26 PM) Pulse Rate [55-90 bpm] 74 bpm (11/29/22 2:26 PM) Body Mass Index [18.5-24.99 kg/m2] 34.08 kg/m2 *>HHI* (11/29/22 2:26 PM) Blood Pressure [90-138/55-84 mm Hg] 122/ 64mm Hg (11/29/22 2:40 PM) 132/74mm Hg (11/29/22 2:26 PM) Mode of Delivery (Oxygen) Room air (11/29/22 2:26 PM) Blood pressure sites Arm, left (11/29/22 2:40 PM) Arm, left (11/29/22 2:26 PM) Social History Social History Type Response Smoking Status Never smoker entered on: 10/12/14 Sex Note * Mary Porter: PERFORM, SIGN, VERIFY Event Display: Patient Education/Instruction Authored Date: [id number] [facility] Clinical Summary Name IAN BAILEY Age 57 Years 1965 PCP Jacob DORAN, Santi PCP Visit Date 11/29/2022 14:12:00 Patient Instructions 1. repeat fasting lab work 2. you may start by cutting out your sugars and starches (e.g. cookies, chips, potatoes etc.) 3. regular exercise is also important.?? 4. please call Dr. Lai to get your colonoscopy 5. discuss with your lung specialist your recent symptoms of numbness at the injection sites for Nucala to see if they see it often with other patients they have on this med. Additional Instructions: Scheduled Appointments?? Future Appointments ?[facility] ?[address]??[place],??[place],??[address] ?Phone:??[phone]?Fax:??-- ?Appt. Date:??04/07/2023?4:15 PM ?Scheduled Provider:??[facility] 3D Mammo Rm 2 Follow-Up Instructions ?? 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 Discuss any questions related to medications with your provider. Medications to Continue Taking That Have Changed These medications were not printed or sent to your pharmacy - Azelastine Nasal (azelastine 137 mcg/inh (0.1%) nasal spray) 1 spray(s) Nares, Both twice a day as needed Other Allergies for 30 Days. Refills: 10. Next Dose: Medications to Continue with No Changes These medications were not printed or sent to your pharmacy Acetaminophen (acetaminophen 650 mg oral tablet, extended release) 1 tab(s) Oral every 8 hours as needed NEEDED FOR PAIN. Refills: 3. Next Dose: Albuterol (Albuterol (Eqv-ProAir HFA) 90 mcg/inh inhalation aerosol) 2 puff(s) Inhalation every 6 hours as needed Wheezing/Shortness of Breath. Refills: 11. Next Dose: Aspirin (aspirin 81 mg oral tablet) 1 tab(s) Oral Daily for 30 Days. Refills: 10. Next Dose: Budesonide-Formoterol (Symbicort 160mcg/4.5mcg Inhaler) 2 puff(s) Inhalation twice a day. in the morning and the evening use with spacer chamber rinse mouth and throat after use. Refills: 5. Next Dose: Cholecalciferol (Vitamin D3 1000 intl units oral tablet) 1 tab(s) Oral Daily. Next Dose: Durable Medical Equipment (CPAP supplies (Mask, tubing, filter, water, cushion, water chamber)) usewith CPAP daily at bedtime for GARCIA G47.33. Refills: 0. Next Dose: Fluticasone Nasal (fluticasone 50 mcg/inh nasal spray) USE 1 SPRAY IN EACH NOSTRL 2 TIMES A DAY X 5DAYS, AND THEN DAILY THEREAFTER. Refills: 11. Next Dose: Levothyroxine (levothyroxine 0.05 mg oral tablet) TAKE 1 TABLET BY MOUTH EVERY DAY. Refills: 1. Next Dose: Loratadine (loratadine 10 mg oral tablet) 1 tab(s) Oral Daily. Refills: 11. Next Dose: Mepolizumab (Nucala Prefilled Autoinjector 100 mg/mL subcutaneous solution) 100 Milligram Subcutaneous Infusion Every 28 days. j45.40. Refills: 11. Next Dose: Miscellaneous Rx (CPAP at 8mmHg) DX: sleep apnea length of need 99 months. Refills: 0. Next Dose: Montelukast (Singulair 10 mg oral tablet) 1 tab(s) Oral Daily. Refills: 11. Next Dose: Multivitamin (multivitamin Multiple Vitamins oral tablet, chewable) 1 tab(s) Oral Daily for 30 Days. Refills: 0. Next Dose: Omeprazole (omeprazole 20 mg oral enteric coated capsule) 1 capsule Oral Daily for 30 Days. Next Dose: Allergy Info:?? Demerol; Levaquin; Lipitor; Biaxin; Percocet; Lopid; benzonatate; morphine; nitrofurantoin; doxycycline Medications Given This Visit Future Orders ?Hemoglobin A1C (Monitoring)? Order Date:11/29/22?- Complete on or after?11/29/22 ?Lipid Panel? Order Date:11/29/22?- Complete on or after?11/29/22 ?Glucose Level? Order Date:11/29/22?- Complete on or after?11/29/22 ?Thyroid Panel? Order Date:11/29/22?- Complete on or after?11/29/22 ?Vitamin D 25 Hydroxy Level? Order Date:11/29/22?- Complete on or after?11/29/22 ?Iron + Iron Binding Capacity? Order Date:11/29/22?- Complete on or after?11/29/22 ?Vitamin B12 Level? Order Date:11/29/22?- Complete on or after?11/29/22 Vital Signs Height 156.15 cm Weight 83.1 kg BMI 34.08 kg/m2 Blood Pressure 122 mm Hg/64 mm Hg Temperature Pulse Rate 74 bpm Respiratory Rate 02 Sat Mode of Delivery 99 %/Room air You can now view a summary of your hospital visit from the comfort of your home through a free online portal called [employer]. [employer] is a website that allows you to securely view your medical information including discharge summary, medications and follow-up visits. ??You can alsosend a secure electronic message to your doctor???s office to request appointments, renew medications or just ask a question. You can enroll at [email or web address] or register during your next office visit. [...] primary care provider, you may find a [facility] provider by calling [facility] Link at [phone]. For information about the plan of care including goals and instructions for your diagnosis, please see the patient education orders section of this document. Patient Education Materials?? The content of this educational material or handout may have been modified, supplemented, or adapted from its original content and format to support your individualized medical care. Additional Provider Instructions: 1. repeat fasting lab work 2. you may start by cutting out your sugars and starches (e.g. cookies, chips, potatoes etc.) 3. regular exercise is also important. 4. please call Dr. Lai to get your colonoscopy 5. discuss with your lung specialist your recent symptoms of numbness at the injection sites for Nucala to see if they see it often with other patients they have on this med. Patient Care team information Care Team Personnel Name: Justa HARRIS, Geni Orlando Position: [facility] Associate Professional Member Role: Primary Care Nurse Address: Address: [address] [place] [address]- Name: Santi James MD Position: [facility] Primary Care Physician Member Role: PCP Address: Address: [address] [facility] [place] [address]- Care Team Related Persons Name: LEOPITER Address: home [address] [place] [address] Name: DELMIS ADAMS Address: home [place], [place] Name: RUPERT PALMER Address: home [address] [place], [place] Name: DESIREA CHAUDHARY Address: home [address] [place], [place]
--- OUTSIDE RECORDS SUMMARY | 2024-07-15 15:40 | XMS_ITS | Continuity of Care Document ---
Author Organization [facility] Address [address] [place] [address]- Care Team Providers Care Circus Rider Name Role Phone Jacob DORAN, Santi Primary Care Physician [facility]): 01[facility]24 - 02/29/24 [facility] [address] [place], [place] [address] Allergies, Adverse Reactions, Alerts [...] (Td) 11/03/99 Given 1Admin Note: done @ [facility],form received 2Result Comment: [07/31/2015] [facility] 3Admin Note: done @ [facility] 4Admin Note: vis sheet given. 5Admin Note: work 6Admin Note: given at [facility] in [place] 7Admin Note: per pt, done at [facility] 8Admin Note: done @ [facility], form received 9Admin Note: given at work 10Admin Note: given in the fall 11Result Comment: [id number] 12Result Comment: [08/31/2018] [id number] 13Result Comment: [08/24/2015] given w/out incident 14Admin [...] tablet, 3 Refills, Maintenance, 01/17/23 12:44:00 EDT, [facility] 04841, 156.15, cm, 11/29/22 14:40:00 EST, Height, 79.5, [...] 90 Unknown,1 Refills, Maintenance, 06/10/23 8:18:00 EDT, [facility]ORE 05604, 90, USE 1 SPRAY IN BOTH NOSTRILS [...] Refills, Soft Stop, 03/14/23 15:31:00 EDT, [facility], Partial fill upon patient request if theprescription is for a schedule II opioid drug., 155... Start Date: 03/14/23 Status: Ordered fexofenadine 180 mg oral tablet 1 tablet = 180 mg, By Mouth, Daily, PRN for allergy symptoms, # 90 tablet, 4 Refills, Maintenance, 09/02/23 11:04:00 EDT, Tablet, [facility]/pharmacy #2476, Partial fill upon patient request if the prescription is for a schedule II opioid drug., 155, cm, ... Start Date: 09/02/23 Stop Date: 11/25/24 Status: Ordered fluconazole 150 mg oral tablet 1 tablet = 150 mg, By Mouth, Once, repeat dose if still having symptoms in 72 hours, # 2 tablet, 0 Refills, Soft Stop, 12/22/23 13:26:00 EST, Tablet, [facility]/pharmacy #2476, Partial fill upon patient request if the prescription is for a schedule II opioid... Start Date: 12/22/23 Status: Ordered ibuprofen 800 mg oral tablet 1, tablet, By Mouth, 3 times a day, X30 DAYS, STOP ASPIRIN WHILE TAKING THIS., # 90 tablet, Refills1, Maintenance, 12/04/23 7:25:00 EST, Route to Pharmacy Electronically, [facility], 155, cm, 11/18/23 16:29:00 EST, Height, 83.7, kg, 11/06/23 9:0... Start Date: 12/04/23 Status: Ordered levothyroxine 0.05 mg oral tablet 1 tablet, By Mouth, Daily, # 90 tablet, 3 Refills, Maintenance, 08/12/23 15:31:00 EDT, [facility]/pharmacy#2476, 155, cm, 08/12/23 15:09:00 EDT, Height, 83.9, kg, 03/13/23 4:46:00 EDT, Dry Weight Start Date: 08/12/23 Stop Date: 08/06/24 Status: Ordered montelukast 10 mg oral tablet 1, tablet, By Mouth, Daily, # 90 tablet, Refills 3, Maintenance, 11/23/23 8:40:00 EST, Route to Pharmacy Electronically, [facility] 601[facility], 155, cm, 11/18/23 16:29:00 EST, Height, 83.7, [...] 4 Refills, Maintenance, 03/28/23 13:04:00 EDT, Aerosol, [facility]/pharmacy #2476, replaced Proventil that is not [...] Role: Primary Care Nurse Address: Address: [address] [facility] [place] [address]- Name: Talia Matute RN [facility] RN Member Role: Primary Care Nurse Name: Darshan Benz RN Position: [facility] Outreach Member Role: Primary Care Nurse Name: Santi James MD Position: [facility] Physician - Primary Care Member Role: PCP Address: Address: [address] [place] [address] Adult & [place] [address]- Care Team Related Persons Name: PITER BAILEY Address: home [address] [place] [address] Name: DELMIS ADAMS Address: home [place] [place], [place] Name: RUPERT PALMER Address: home [address] [place], [place] Name: DESIRAE CHAUDHARY Address: home [address] [place], [place]
--- OUTSIDE RECORDS SUMMARY | 2024-07-15 15:41 | XMS_ITS | Continuity of Care Document ---
Author Organization [facility] Address [address] [place] [address]- Care Team Providers Care Sole Splitter Name Role Phone Santi James MD Primary Care Physician [facility] 03[facility]04[facility]23 - 07/02/23 [facility] [address] [place], [place] [address] Attending Physician: Santi James MD Allergies, Adverse Reactions, Alerts Substance Reaction Severity Status doxycycline Hives Active morphine Active predniSONE Anaphylaxis Active Percocet Active nitrofurantoin Pruritus Rash Active benzonatate Speech [...] (Td) 11/03/99 Given 1Admin Note: done @ [facility],form received 2Result Comment: [07/31/2015] [facility] 3Admin Note: done @ [facility] 4Admin Note: vis sheet given. 5Admin Note: work 6Admin Note: given at [facility] in [place] 7Admin Note: per pt, done at [facility] 8Admin Note: done @ [facility], form received 9Admin Note: given at work 10Admin Note: given in the fall 11Result Comment: [id number] 12Result Comment: [08/31/2018] [id number] 13Result Comment: [08/24/2015] given w/out incident 14Admin Note: per pt 15Admin Note: [facility] Medications acetaminophen 650 mg oral tablet, extended release 1 tablet, By Mouth, Every 8 hours, PRN NEEDED FOR PAIN, # 90 tablet, 3 Refills, Maintenance, 01/17/23 12:44:00 EDT, [facility], 156.15, cm, 11/29/22 14:40:00 EST, Height, 79.5, [...] Refills, Maintenance, 06/10/23 8:18:00 EDT, [facility], 90, USE 1 SPRAY IN BOTH NOSTRILS [...] 155... Start Date: 03/14/23 Status: Ordered ergocalciferol 71583 iu oral capsule 50,000 International_Units, 1, capsule, By Mouth, Every week, # 12 capsule, Refills 0, Tot. Refills0, Maintenance, 06/12/23 7:24:00 EDT, Route to Pharmacy Electronically, [facility]/pharmacy #2476, Partialfill upon patient request if [...] tablet, 1 Refills, Maintenance, 03/01/23 14:21:00 EDT, [facility] STORE 20558, 156.15, cm, 11/29/22 14:40:00 EST, Height, 79.5, [...] 4 Refills, Maintenance, 03/28/23 13:04:00 EDT, Aerosol, [facility]/pharmacy #1499, replaced Proventil that is not available, 155, [...] Personnel Name: Justa HARRIS, Geni Orlando Position: [facility] Associate Professional Member Role: Primary Care Nurse Address: Address: [address] [place] [address]- [place] Name: Talia Matute RN Position: [facility] RN Member Role: Primary Care Nurse Name: Santi James MD Position: [facility] Physician - Primary Care Member Role: PCP Address: Address: [address] [place] [address] Adult & [place] [address]- Care Team Related Persons Name: LEO PITER Address: home [address] [place] [address] Name: DELMIS ADAMS Address: [place] [address] Name: RUPERT PALMER Address: [address] [place] [address] Name: DESIRAE CHAUDHARY Address: [address] [place] [address]
--- OUTSIDE RECORDS SUMMARY | 2024-07-15 15:41 | XMS_ITS | Continuity of Care Document ---
Author Organization [facility] Address [address] [place] [address]- Care Team Providers Care Channel Man Name Role Phone Jacob DORAN, Santi Primary Care Physician [facility]): [facility] - 07/09/23 [facility] [address] [place] [address] [...] work 6Admin Note: given at [facility] 7Admin Note: per pt, done at [facility] 8Admin Note: done @ [facility], form received 9Admin Note: given at work 10Admin Note: given in the fall 11Result Comment: [id number] 12Result Comment: [08/31/2018] [id number] 13Result Comment: [08/24/2015] given w/out incident 14Admin Note: per pt 15Admin Note: [facility] Medications acetaminophen 650 mg oral tablet, extended release 1 tablet, By Mouth, Every 8 hours, PRN NEEDED FOR PAIN, # 90 tablet, 3 Refills, Maintenance, 01/17/23 12:44:00 EDT, [facility], 156.15, cm, 11/29/22 14:40:00 EST, Height, 79.5, [...] Refills, Maintenance, 06/10/23 8:18:00 EDT, [facility], 90, USE 1 SPRAY IN BOTH NOSTRILS [...] 11 Refills, Soft Stop, 03/14/23 15:31:00 EDT, [facility]/pharmacy #2476, Partial fill upon patient request if theprescription is for a schedule II opioid drug., 155... Start Date: 03/14/23 Status: Ordered ergocalciferol 21553 iu oral capsule 50,000 International_Units, 1, capsule, By Mouth, Every week, # 12 capsule, Refills 0, Tot. Refills0, Maintenance, 06/12/23 7:24:00 EDT, Route to Pharmacy Electronically, [facility]/pharmacy #2476, Partialfill upon patient request if the [...] tablet, 1 Refills, Maintenance, 03/01/23 14:21:00 EDT, [facility] STORE 00004, 156.15, cm, 11/29/22 14:40:00 EST, Height, 79.5, [...] 4 Refills, Maintenance, 03/28/23 13:04:00 EDT, Aerosol, [facility]/pharmacy #2560, replaced Proventil that is not available, 155, [...] Personnel Name: Justa HARRIS, Geni Orlando Position: [facility] Associate Professional Member Role: Primary Care Nurse Address: Address: [address] [facility] [place] [address]- [place] Name: Talia Matute RN Position: [facility] RN Member Role: Primary Care Nurse Name: Santi James MD Position: [facility] Physician - Primary Care Member Role: PCP Address: Address: [address] & [place] [address]- Care Team Related Persons Name: PITER BAILEY Address: home [address] [place] [address] Name: DELMIS ADAMS Address: [place] [address] Name: RUPERT PALMER Address: [address] [place] [address] Name: DESIRAE CHAUDHARY Address: [address] [place] [address]
--- OUTSIDE RECORDS SUMMARY | 2024-07-15 15:41 | XMS_ITS | Continuity of Care Document ---
Author Organization [facility] Address [address] [place] [address] [address] [place] [address]- Care Team Providers Care Grounds And Nursery Specialist Name Role Phone Santi James MD Primary Care Physician [facility]s): 02/27/23 - 03/29/[address] [place] [address]- Attending Physician: Admjaiden, Ken Admitting Physician: AdmtrKen Referring Physician: Admtr, Ar8 Allergies, Adverse Reactions, Alerts [...] (Td) 11/03/99 Given 1Admin Note: done @ [facility],form received 2Result Comment: [07/31/2015] [facility] 3Admin Note: done @ [facility] 4Admin Note: vis sheet given. 5Admin Note: work 6Admin Note: given at [facility] in [place] 7Admin Note: per pt, done at [facility] 8Admin Note: done @ [facility], form received 9Admin Note: given at work 10Admin Note: given in the fall 11Result Comment: [id number] 12Result Comment: [08/31/2018] [id number] 13Result Comment: [08/24/2015] given w/out incident 14Admin Note: per pt 15Admin Note: [facility] Medications acetaminophen 650 mg oral tablet, extended release 1 tablet, By Mouth, Every 8 hours, PRN NEEDED FOR PAIN, # 90 tablet, 3 Refills, Maintenance, 01/17/23 12:44:00 EDT, [facility], 156.15, cm, 11/29/22 14:40:00 EST, Height, 79.5, [...] each, 10 Refills, Maintenance, 11/25/22 15:18:00 EST, [place], [facility]/pharmacy #2476, replaces 0.15% dose, 1 [...] Refills, Maintenance, 03/01/23 14:21:00 EDT, [facility], 156.15, cm, 11/29/22 14:40:00 EST, Height, 79.5, [...] 4 Refills, Maintenance, 03/28/23 13:04:00 EDT, Aerosol, [facility]/pharmacy #5246, replaced Proventil that is not available, 155, [...] Personnel Name: Justa HARRIS, Geni Orlando Position: [facility] Associate Professional Member Role: Primary Care Nurse Address: Address: [address] [place] [address]- Name: Talia Matute RN Position: [facility] ED RN W/OE and Tasks Member Role: Primary Care Nurse Name: Santi James MD Position: [facility] Physician - Primary Care Member Role: PCP Address: Address: [address] [place] [address] Adult & [place] [address]- Care Team Related Persons Name: PITER BAILEY Address: home [address] [place] [address] Name: DELMIS ADAMS Address: home [place], [place] Name: RUPERT PALMER Address: home [address] [place], [place] Name: DESIRAE CHAUDHARY Address: home [address] [place], [place]
--- OUTSIDE RECORDS SUMMARY | 2024-07-15 15:41 | XMS_ITS | Continuity of Care Document ---
Author Organization [facility] Address [address] [place] [address]- Care Team Providers Care Is Analyst Name Role Phone Santi James MD Primary Care Physician [facility]): [facility]22 - 01/26/23 [facility] [address] [place], [place] [address] Attending Physician: Admtr, Ar8 Allergies, Adverse [...] (Td) 11/03/99 Given 1Admin Note: done @ [facility],form received 2Result Comment: [07/31/2015] [facility] 3Admin Note: done @ [facility] 4Admin Note: vis sheet given. 5Admin Note: work 6Admin Note: given at [facility] [place] 7Admin Note: per pt, done at [facility] 8Admin Note: done @ [facility], form received 9Admin Note: given at work 10Admin Note: given in the fall 11Result Comment: [id number] 12Result Comment: [08/31/2018] [id number] 13Result Comment: [08/24/2015] given w/out incident 14Admin Note: per pt 15Admin Note: [facility] Medications acetaminophen 650 mg oral tablet, extended release 1 tablet, By Mouth, Every 8 hours, PRN NEEDED FOR PAIN, # 90 tablet, 3 Refills, Maintenance, 01/17/23 12:44:00 EDT, [facility] STORE 76834, 156.15, cm, 11/29/22 14:40:00 EST, Height, 79.5, kg, 06/06/22 11:17:00 EDT, Dry Weight Start Date: 01/17/23 Status: Ordered Albuterol (Eqv-ProAir HFA) 90 mcg/inh inhalation aerosol 2 puffs, Inhalation, Every 6 hours, PRN Wheezing/Shortness of Breath, # 6.7 Gm, 11 Refills, Maintenance, 08/29/22 9:07:00 EDT, [facility]/pharmacy #[id number], Partial fill upon patient [...] each, 10 Refills, Maintenance, 11/25/22 15:18:00 EST, [place], [facility]/pharmacy #[id number], replaces 0.15% dose, 1 [...] 16 Gm, 11 Refills, 08/29/22 9:07:00 EDT, [facility]/pharmacy #[id number], USE 1 SPRAY IN EACH NOSTRL 2 TIMES A DAYX 5 DAYS, AND THEN DAILY THEREAFTER, 156.15, cm, 10... Start Date: 08/29/22 Status: Ordered levothyroxine 0.05 mg oral tablet See Instructions, TAKE 1 TABLET BY MOUTH EVERY DAY, # 90 tablet, 1 Refills, 09/01/22 19:54:00 EDT, [facility]/pharmacy #[id number], 156.15, cm, 08/29/22 8:44:00 EDT, Height, 79.5, kg, 06/06/22 11:17:00 EDT, Dry Weight Start Date: 09/01/22 Status: Ordered loratadine 10 mg oral tablet 10 mg, 1, tablet, By Mouth, Daily, # 30 tablet, Refills 11, Tot. Refills 11, Maintenance, 08/29/22 9:07:00 EDT, Route to Pharmacy Electronically, [facility]/pharmacy #[id number], Partial fill upon patient [...] 1 each, 11 Refills, Maintenance, 11/28/2314:07:00 EST, [facility], Partial fill upon patient [...] 08/29/22 9:07:00 EDT, Route to Pharmacy Electronically, [facility]/pharmacy #2946, Partial fill upon patient requestif the prescription is for a schedule II opioid lauro... Start Date: 08/29/22 Status: Ordered Symbicort 160mcg/4.5mcg Inhaler 2, puffs, Inhalation, 2 times a day, in the morning and the evening use with spacer chamber rinse mouth and throat after use, # 1 each, Refills 5, Tot. Refills 5, Maintenance, 10/17/22 10:03:00 EST, Aerosol, Route to Pharmacy Electronically, [id number]... Start Date: 10/17/22 Status: Ordered Vitamin D3 [...] Status Never smoker entered on: 10/12/14 Sex Cytology report of Cervical or vaginal smear or scraping Cyto stain * Event Display: ENVIRONMENTAL MARKETING REPRESENTATIVE Pap Test, Non-BH Authored Date: EKG study * Event Display: EKG Authored Date: Note * Event Display: Non BH Lab Results Authored Date: * Event Display: Non BH Lab Results Authored Date: * Event Display: Non BH Lab Results Authored Date: * Event Display: Non BH Lab Results Authored Date: * Cristine Alvarado: PERFORM Event Display: Radiology Results Scanned Authored Date: [id number] * Syeda [facility]: PERFORM Event Display: Radiology Results Scanned Authored Date: [id number] * Colon , Lhea: PERFORM Event Display: Radiology Results Scanned Authored Date: * Colon , Lhea: PERFORM Event Display: Cardiovascular Results Scanned Authored Date: [id number] Patient Care team information Care Team Personnel Name: Justa HARRIS, Geni Orlando Position: [facility] Associate Professional Member Role: Primary Care Nurse Address: Address: [address] [place] [address]- [place] Name: Santi James MD Position: [facility] Primary Care Physician Member Role: PCP Address: Address: [address] [place] [address] Adult [facility] [place] [address]- Care Team Related Persons Name: DONNAMECHEPITER NASH Address: home [address] [place] [address] Name: DELMIS ADAMS Address: [place] [address] Name: RUPERT PALMER Address: home [address] [place], [place] Name: DESIRAE CHAUDHARY Address: home [address] [place], [place]
--- OUTSIDE RECORDS SUMMARY | 2024-07-15 15:41 | XMS_ITS | Continuity of Care Document ---
Author Organization [facility] Address [address] [place] [address]- Care Team Providers Care Serologist Name Role Phone Santi James MD Primary Care Physician [facility] 12/20/19 - 12/27/19 [facility] [address] [place] [address]- [facility] Attending Physician: Marisol Cowan MD Referring Physician: Santi James MD Allergies, [...] in the fall 3Admin Note: done @ [facility], form received 4Result Comment: [id number] 5Result Comment: [08/31/2018] [id number] 6Result Comment: [08/24/2015] given w/out incident 7Admin Note: done @ [facility],form received 8Result Comment: [07/31/2015] [facility] 9Admin Note: done @ [facility] 10Admin Note: vis sheet given. 11Admin Note: work 12Admin Note: given at [facility] in [place] 13Admin Note: per pt, done at [facility] 14Admin Note: per pt 15Admin Note: [facility] Medications acetaminophen 650 mg oral tablet, extended release 1 tablet = 650 mg, By Mouth, Every 8 hours, PRN as needed for pain, for 30 days, # 100 tablet, 1 Refills, Acute 02/01/20 11:16:00 EDT, 12/03/19 11:16:00 EST, ER Tablet, [facility]/pharmacy #2476, 156, cm, 12/03/19 8:37:00 EST, Height, [...] 4 Refills, Maintenance, 12/01/19 12:54:00 EST, Solution, [facility]/pharmacy #2476, 156, cm, 12/01/19 12:40:00 EST, Height, 79.6, kg, 03/10/19 14:10:00 EDT, Dry Weight Start Date: 12/01/19 Stop Date: 04/29/20 Status: Ordered albuterol CFC free 90 mcg/inh inhalation aerosol 2, puffs, Inhalation, Every 4 hours, PRN, # 9 Gm, Refills 0, Tot. Refills 0, Maintenance, 10/28/17 14:12:34, Aerosol, Route to Pharmacy Electronically, [id number], [facility]/pharmacy #1972, Compound Start Date: 10/28/17 Status: Ordered [...] 08/16/19 14:35:23 EDT, Route to Pharmacy Electronically, [id number], [facility]/pharmacy #2476, increase in dose Start Date: 08/16/19 [...] 09/13/19 13:49:27 EST, Route to Pharmacy Electronically, [id number], [facility]/pharmacy #2476 Start Date: 09/13/19 Stop Date: 05/10/20 [...] oldest [Reference Range]: 1 Height 156 cm (12/20/19 10:35 AM) Weight 78.8 kg (12/20/19 10:35 AM) Oxygen Saturation [94-100 %] 99 % (12/20/19 10:35 AM) Pulse Rate [55-90 bpm] 59 bpm (12/20/19 10:35 AM) Body Mass Index [18.5-24.99] 32.38 *>HHI* (12/20/19 10:35 AM) Blood Pressure [90-138/55-84 mm Hg] 129/ 63mm Hg (12/20/19 10:35 AM) Respiratory Rate [16-30 br/min] 18 br/mi n (12/20/19 10:35 AM) Temperature [96.8-100.4 DegF] 98.9 DegF (12/20/19 10:35 AM) Mode of Delivery (Oxygen) Room air (12/20/19 10:35 AM) Blood pressure sites Arm, right (12/20/19 10:35 AM) Temperature Route Oral (12/20/19 10:35 AM) Dry Weight 78.8 kg (12/20/19 10:35 AM) Weight Obtained Via Standing scale (12/20/19 10:35 AM) Dry Weight Obtained Via Standing scale (12/20/19 10:35 AM) Social History Social History Type Response Smoking Status Never smoker entered on: 10/12/14 Sex
--- OUTSIDE RECORDS SUMMARY | 2024-07-15 15:41 | XMS_ITS | Continuity of Care Document ---
Author Organization [facility] Address [address] [place] [address]- Care Team Providers Care Sign Hanger Name Role Phone Santi James MD Primary Care Physician [facility] 10[facility]12[facility]23 - 11/11/23 [facility] [address] [place], [place] [address] Allergies, Adverse Reactions, Alerts Substance Reaction Severity Status morphine Active Percocet Active doxycycline Hives Active nitrofurantoin Pruritus Rash Active predniSONE Anaphylaxis Active benzonatate Speech impediment Active Lopid Muscle cramps Myalgia and myositis unspecified Active Biaxin Upset stomach Active Demerol Active tiZANidine Anaphylaxis Active Lipitor Myalgia unspecified Muscle cramps Active Topamax Skin rash Active Levaquin Hives Active Immunizations Given and [...] (Td) 11/03/99 Given 1Admin Note: done @ [facility],form received 2Result Comment: [07/31/2015] [facility] 3Admin Note: [facility] @ [facility] 4Admin Note: vis sheet given. 5Admin Note: work 6Admin Note: given at [facility] in [place] 7Admin Note: per pt, done at [facility] 8Admin Note: done @ [facility], form received 9Admin Note: given at work 10Admin Note: given in the fall 11Result Comment: [id number] 12Result Comment: [08/31/2018] [id number] 13Result Comment: [08/24/2015] given w/out incident 14Admin [...] tablet, 3 Refills, Maintenance, 01/17/23 12:44:00 EDT, [facility] 55225, 156.15, cm, 11/29/22 14:40:00 EST, Height, 79.5, [...] 90 Unknown,1 Refills, Maintenance, 06/10/23 8:18:00 EDT, [facility] 28043, 90, USE 1 SPRAY IN BOTH NOSTRILS [...] Refills, Soft Stop, 11/06/23 9:46:00 EST, Tablet, [facility]/pharmacy #4158, Partial fill upon patient request if the prescription is for a schedule II opioid drug., 155, cm, 11/06/23 9:08:00 EST, Height, 83.7... Start Date: 11/06/23 Status: Ordered EpiPen 2-Tramaine 0.3 mg injectable kit = 0.3 mg, Intramuscular, Once, PRN Anaphylactic Reaction, may repeat if necessary, # 1 each, 11 Refills, Soft Stop, 03/14/23 15:31:00 EDT, [facility]/pharmacy #2476, Partial fill upon patient request if theprescription is for a schedule II opioid drug., 155... Start Date: 03/14/23 Status: Ordered fexofenadine 180 mg oral tablet 1 tablet = 180 mg, By Mouth, Daily, PRN for allergy symptoms, # 90 tablet, 4 Refills, Maintenance, 09/02/23 11:04:00 EDT, Tablet, [facility]/pharmacy #2476, Partial fill upon patient request if the prescription is for a schedule II opioid drug., 155, cm, ... Start Date: 09/02/23 Stop Date: 11/25/24 Status: Ordered gentamicin 0.3% ophthalmic solution 1 drops, Eyes, Both, 4 times a day, for 7 days, # 5 mL, 0 Refills, Acute 11/18/23 17:15:00 EST, 11/11/23 17:15:00 EST, Solution, [facility]/pharmacy #2476, Partial fill upon patient request if the prescription is for a schedule II opioid drug., 1 drops Eyes,... Start Date: 11/11/23 Stop Date: 11/18/23 Status: Ordered levothyroxine 0.05 mg oral tablet 1 tablet, By Mouth, Daily, # 90 tablet, 3 Refills, Maintenance, 08/12/23 15:31:00 EDT, [facility]/pharmacy#2476, 155, cm, 08/12/23 15:09:00 [...] Date: 12/09/19 Stop Date: 01/08/20 Status: Ordered polymyxin B-trimethoprim ophthalmic 43104 u-1 mg/ml solution 1 drops, Eyes, Both, 4 times a day, for 7 days, # 10 mL, 0 Refills, Acute 11/13/23 9:46:00 EST, 11/06/23 9:46:00 EST, Solution, [facility]acy [facility], genatmicin not effective, 1 drops Eyes, Both 4 times a day,x7 days, 155, cm, 11/06/23 9:08:00 EST, [facility]... Start Date: 11/06/23 Stop Date: 11/13/23 Status: Ordered Ventolin HFA 108 mcg/inh inhalation [...] Personnel Name: Justa HARRIS, Geni Orlando Position: [facility] Associate Professional Member Role: Primary Care Nurse Address: Address: [address] [place] [address]- Name: Talia Matute RN Position: [facility] RN Member Role: Primary Care Nurse Name: Santi James MD Position: [facility] Physician - Primary Care Member Role: PCP Address: Address: [address] [place] [address] Adult & [place] [address]- Care Team Related Persons Name: PITER BAILEY Address: home [address] [place] [address] Name: DELMIS ADAMS Address: home [place], [place] Name: RUPERT PALMER Address: home [address] [place], [place] Name: DESIRAE CHAUDHARY Address: home [address] [place], [place]
--- OUTSIDE RECORDS SUMMARY | 2024-07-15 15:41 | XMS_ITS | Continuity of Care Document ---
Author Organization [facility] Address [address] [place] [address]- Care Team Providers Care Construction Sales Representative Name Role Phone Jacob DORAN, Santi Primary Care Physician [facility] 12[facility]11[facility]23 - 01/10/24 [facility] [address] [place], [place] [address] Allergies, Adverse Reactions, Alerts Substance [...] (Td) 11/03/99 Given 1Admin Note: done @ [facility],form received 2Result Comment: [07/31/2015] [facility] 3[facility] Note: [facility] 4Admin Note: vis sheet given. 5Admin Note: work 6Admin Note: given at [facility] in [place] 7Admin Note: per pt, done at [facility] 8Admin Note: done @ [facility], form received 9Admin Note: given at work 10Admin Note: given in the fall 11Result Comment: [id number] 12Result Comment: [08/31/2018] [id number] 13Result Comment: [08/24/2015] given w/out incident 14Admin [...] tablet, 3 Refills, Maintenance, 01/17/23 12:44:00 EDT, [facility] [address]97, 156.15, cm, 11/29/22 14:40:00 EST, Height, 79.5, [...] 90 Unknown,1 Refills, Maintenance, 06/10/23 8:18:00 EDT, [facility] ST[facility] [address]409, 90, USE 1 SPRAY IN BOTH NOSTRILS [...] Refills, Soft Stop, 11/06/23 9:46:00 EST, Tablet, [facility]/pharmacy #5569, Partial fill upon patient request if the [...] Refills, Soft Stop, 12/22/23 13:26:00 EST, Tablet, [facility]/pharmacy #2476, Partial fill upon patient request if the prescription is for a schedule II opioid... Start Date: 12/22/23 Status: Ordered ibuprofen 800 mg oral tablet 1, tablet, By Mouth, 3 times a day, X30 DAYS, STOP ASPIRIN WHILE TAKING THIS., # 90 tablet, Refills1, Maintenance, 12/04/23 7:25:00 EST, Route to Pharmacy Electronically, [facility] ST[facility] [address]32, 155, cm, 11/18/23 16:29:00 EST, Height, 83.7, [...] 11/23/23 8:40:00 EST, Route to Pharmacy Electronically, [facility] STORE [address]8264, 155, cm, 11/18/23 16:29:00 EST, Height, 83.7, [...] 4 Refills, Maintenance, 03/28/23 13:04:00 EDT, Aerosol, [facility]/pharmacy #2476, replaced Proventil that is not available, 155, cm, 03/13/23 11:02:00 EDT, Height, 83.9, kg, 03/13/23 4:46:00 EDT... Start Date: 03/28/23 Stop Date: 08/25/23 Status: Ordered Zetia 10 mg oral tablet 1 tablet = 10 mg, By Mouth, Daily, # 30 tablet, 1 Refills, Maintenance, 10/28/23 10:28:00 EST, Tablet, [facility]/pharmacy #2476, Partial [...] Personnel Name: Justa HARRIS, Geni Orlando Position: [facility] Associate Professional Member Role: Primary Care Nurse Address: Address: [address] [place] [address]- Name: Talia Matute RN Position: [facility] RN Member Role: Primary Care Nurse Name: Santi James MD Position: [facility] Physician - Primary Care Member Role: PCP Address: Address: [address] [place] [address] Adult & [place] [address]- Care Team Related Persons Name: PITER BAILEY Address: home [address] [place] [address] Name: DELMIS ADAMS Address: home [place], [place] Name: RUPERT PALMER Address: home [address] [place], [place] Name: DESIRAE CHAUDHARY Address: home [address] [place], [place]
--- OUTSIDE RECORDS SUMMARY | 2024-07-15 15:41 | XMS_ITS | Continuity of Care Document ---
Author Organization [facility] Address [address] [place] [address]- Care Team Providers Care Technical Support Internship Name Role Phone Santi James MD Primary Care Physician [facility] 07/19/23 - 08/18/23 [facility] [address] [place], [place] [address] Allergies, Adverse Reactions, Alerts Substance Reaction Severity Status doxycycline Hives Active nitrofurantoin Pruritus Rash Active morphine Active benzonatate Speech impediment Active Percocet Active Biaxin Upset stomach Active Levaquin Hives Active Demerol Active predniSONE Anaphylaxis Active Lopid Muscle cramps [...] (Td) 11/03/99 Given 1Admin Note: done @ [facility],form received 2Result Comment: [07/31/2015] [facility] 3Admin Note: done @ [facility] 4Admin Note: vis sheet given. 5Admin Note: work 6Admin Note: given at [facility] in [place] 7Admin Note: per pt, done at [facility] 8Admin Note: done @ [facility], form received 9Admin Note: given at work 10Admin Note: given in the fall 11Result Comment: [id number] 12Result Comment: [08/31/2018] [id number] 13Result Comment: [08/24/2015] given w/out incident 14Admin [...] tablet, 3 Refills, Maintenance, 01/17/23 12:44:00 EDT, [facility] 66306, 156.15, cm, 11/29/22 14:40:00 EST, Height, 79.5, [...] 90 Unknown,1 Refills, Maintenance, 06/10/23 8:18:00 EDT, [facility] ST[facility] 54795, 90, USE 1 SPRAY IN BOTH NOSTRILS 2 TIMES A DAY NEEDED FOR ALLERGIES, 155, cm, ... Start Date: 06/10/23 Status: Ordered CeleBREX 100 mg oral capsule 1 capsule = 100 mg, By Mouth, 2 times a day, PRN for pain, # 60 capsule, 4 Refills, Maintenance, 08/12/23 15:29:00 EDT, Capsule, [facility]/pharmacy #1626, replaces ibuprofen, 155, cm, 08/12/23 15:09:00 EDT, [...] 155... Start Date: 03/14/23 Status: Ordered ergocalciferol 13056 iu oral capsule 50,000 International_[employer]its, 1, capsule, By Mouth, Every week, # 12 capsule, Refills 0, Tot. Refills0, Maintenance, 06/12/23 7:24:00 EDT, Route to Pharmacy Electronically, [facility]/pharmacy #2476, Partialfill upon patient request if [...] Justa HARRIS, Geni Orlando Position: [facility] Associate Professional Member Role: Primary Care Nurse Address: Address: [address] [place] [address] [address]- Name: Juju QIU, Talia Position: [facility] RN Member Role: Primary Care Nurse Name: Santi James MD Position: [facility] Physician - Primary Care Member Role: PCP Address: Address: [address] [place] [address] Adult & [place] [address]- Care Team Related Persons Name: PITER BAILEY Address: home [address] [place] [address] Name: DELMIS ADAMS Address: [place] [address] Name: RUPERT PALMER Address: [address] [place] [address] Name: DESIRAE CHAUDHARY Address: home [address] [place], [place]
--- OUTSIDE RECORDS SUMMARY | 2024-07-15 15:41 | XMS_ITS | Continuity of Care Document ---
Author Organization [facility] Address [address] [place] [address]- Care Team Providers Care Oil Recovery Unit Operator Name Role Phone Jacob DORAN, Santi Primary Care Physician [facility] 04[facility]13[facility]21 - 05/13/21 [facility] [address] [place], [place] [address] Allergies, Adverse Reactions, Alerts [...] 11/03/99 Given 1Admin Note: done @ [facility], form received 2Admin Note: done @ [facility],form received 3Result Comment: [07/31/2015] [facility] 4Admin Note: done @ [facility] 5Admin Note: vis sheet given. 6Admin Note: work 7Admin Note: given at [facility] in [place] 8Admin Note: per pt, done at [facility] 9Admin Note: given at work 10Admin Note: given in the fall 11Result Comment: [id number] 12Result Comment: [08/31/2018] [id number] 13Result Comment: [08/24/2015] given w/out incident 14Admin Note: per pt 15Admin Note: [facility] Medications acetaminophen 650 mg oral tablet, extended release 1 tablet = 650 mg, By Mouth, Every 8 hours, PRN Pain , Moderate, for 30 days, # 90 tablet, 7 Refills, Acute 10/24/21 12:47:00 EST, 02/26/21 12:47:00 EDT, ER Tablet, [facility] #[id number], 156, cm, 03/13/20 10:31:00 EDT, Height, 78.8, kg, ... Start Date: 02/26/21 Stop Date: 10/24/21 Status: Ordered albuterol 0.083% inhalation solution 3 mL = 2.5 mg, Inhalation, Every 6 hours, PRN for wheezing, Dx: asthma, # 100 each, 4 Refills, Maintenance, 12/01/19 12:54:00 EST, Solution, [facility]/pharmacy #2476, 156, cm, 12/01/19 12:40:00 EST, Height, 79.6, kg, 03/10/19 14:10:00 EDT, Dry Weight Start Date: 12/01/19 Stop Date: 04/29/20 Status: Ordered albuterol CFC free 90 mcg/inh inhalation aerosol 2, puffs, Inhalation, Every 4 hours, PRN, # 1 each, Refills 3, Tot. Refills 3, Maintenance, 03/13/21 8:25:00 EDT, Aerosol, Route to Pharmacy Electronically, [id number], [facility] #[id number], 156, cm, 03/13/21 8:16:00 E... Start Date: [...] 3 Refills, Maintenance, 03/13/21 8:26:00 EDT, Tablet, [facility] #81329, 156, cm, 03/13/21 8:16:00 EDT, Height, 78.8, [...] mL, 0 Refills, Maintenance, 07/25/20 16:52:00 EDT, [place], [facility]/pharmacy #0716, 2 sprays Nares, Both 2 times a day, 156, cm, 03/13/20 10:31:00 EDT, Height, 78.8, kg, 12/20/19 10:35:00 EST, Dry Weight Start Date: 07/25/20 Status: Ordered levothyroxine 0.05 mg oral tablet 1 tablet = 50 mcg, By Mouth, Daily, # 90 tablet, 3 Refills, Maintenance, 03/13/21 8:24:00 EDT, Tablet, [facility] #28341, 156, cm, 03/13/21 8:16:00 EDT, Height, 78.8, kg, 12/20/19 10:35:00 EST, Dry Weight Start Date: 03/13/21 Stop Date: 03/08/22 Status: Ordered montelukast 10 mg oral tablet 1, tablet, By Mouth, Daily, # 90 tablet, Refills 2, Tot. Refills 0, Maintenance, 10/05/20 15:45:00 EST, Route to Pharmacy Electronically, [facility]85, 156, cm, 03/13/20 10:31:00 EDT, Height, 78.8, [...]
--- OUTSIDE RECORDS SUMMARY | 2024-07-15 15:41 | XMS_ITS | Continuity of Care Document ---
Author Organization [facility] Address [address] [place] [address]- Care Team Providers Care Training And Development Rep Name Role Phone Santi James MD Primary Care Physician [facility]counter [facility] Date(s): 01/16/23 - 02/15/23 [facility] [address] [place] [address]- Attending Physician: Kne Galarza Admitting Physician: Ken Galarza Referring Physician: AdmtrKen Allergies, Adverse Reactions, Alerts [...] 11/03/99 Given 1Admin Note: done @ [facility],form received 2Result Comment: [07/31/2015] [facility] 3Admin Note: done @ [facility] 4Admin Note: vis sheet given. 5Admin Note: work 6Admin Note: given at [facility] [place] 7Admin Note: per pt, done at [facility] 8Admin Note: done @ [facility], form received 9Admin Note: given at work 10Admin Note: given in the fall 11Result Comment: [id number] 12Result Comment: [08/31/2018] [id number] 13Result Comment: [08/24/2015] given w/out incident 14Admin Note: per pt 15Admin Note: [facility] Medications acetaminophen 650 mg oral tablet, extended release 1 tablet, By Mouth, Every 8 hours, PRN NEEDED FOR PAIN, # 90 tablet, 3 Refills, Maintenance, 01/17/23 12:44:00 EDT, [facility] STORE 76943, 156.15, cm, 11/29/22 14:40:00 EST, Height, 79.5, kg, 06/06/22 11:17:00 EDT, Dry Weight Start Date: 01/17/23 Status: Ordered Albuterol (Eqv-ProAir HFA) 90 mcg/inh inhalation aerosol 2 puffs, Inhalation, Every 6 hours, PRN Wheezing/Shortness of Breath, # 6.7 Gm, 11 Refills, Maintenance, 08/29/22 9:07:00 EDT, [facility]/pharmacy #2476, [...] each, 10 Refills, Maintenance, 11/25/22 15:18:00 EST, Center, [facility]/pharmacy #2476, replaces 0.15% dose, 1 [...] 16 Gm, 11 Refills, 08/29/22 9:07:00 EDT, [facility]/pharmacy #2476, USE 1 SPRAY IN EACH NOSTRL 2 TIMES A DAYX 5 DAYS, AND THEN DAILY THEREAFTER, 156.15, cm, 10... Start Date: 08/29/22 Status: Ordered levothyroxine 0.05 mg oral tablet See Instructions, TAKE 1 TABLET BY MOUTH EVERY DAY, # 90 tablet, 1 Refills, 09/01/22 19:54:00 EDT, [facility]/pharmacy #2476, 156.15, cm, 08/29/22 8:44:00 EDT, Height, 79.5, kg, 06/06/22 11:17:00 EDT, Dry Weight Start Date: 09/01/22 Status: Ordered loratadine 10 mg oral tablet 10 mg, 1, tablet, By Mouth, Daily, # 30 tablet, Refills 11, Tot. Refills 11, Maintenance, 08/29/22 9:07:00 EDT, [place] Pharm[facility] [place], [facility] 1 each, 11 Refills, Maintenance, 11/28/2314:07:00 EST, [facility], Partial fill upon patient [...] 08/29/22 9:07:00 EDT, Route to Pharmacy Electronically, [facility]/pharmacy #9406, Partial fill upon patient requestif the prescription is for a schedule II opioid lauro... Start Date: 08/29/22 Status: Ordered Symbicort 160mcg/4.5mcg Inhaler 2, puffs, Inhalation, 2 times a day, in the morning and the evening use with spacer chamber rinse mouth and throat after use, # 1 each, Refills 5, Tot. Refills 5, Maintenance, 10/17/22 10:03:00 EST, Aerosol, Route to Pharmacy Electronically, [id number]... Start Date: 10/17/22 Status: Ordered Vitamin D3 [...] smoker entered on: 10/12/14 Sex Note * Event Display: X-Ray Chest, Non- Authored Date: Patient Care team information Care Team Personnel Name: Justa HARRIS, Geni [place] Position: [facility] Associate Professional Member Role: Primary Care Nurse Address: Address: [address] [place] [address]- Name: Santi James MD Position: [facility] Primary Care Physician Member Role: PCP Address: Address: [address] [place] [address] Adult & Pediatric [place], [place] [address] Care Team Related Persons Name: PITER BAILEY Address: home [address] [place] [address] Name: DELMIS ADAMS Address: home [address] [place], [place] Name: RUPERT PALMER Address: home [address] [place], [place] Name: DESIRAE CHAUDHARY Address: home [address] [place], [place]
--- OUTSIDE RECORDS SUMMARY | 2024-07-15 15:41 | XMS_ITS | Continuity of Care Document ---
Author Organization [facility] Address [address] [place] [address]- Care Team Providers Care Jig Fitter Name Role Phone Santi James MD Primary Care Physician [facility]counter [facility] Date[facility]s): 04/03/23 - 05/03/23 [facility] [address] [place], [place] [address] Allergies, Adverse Reactions, Alerts Substance Reaction [...] Given 1Admin Note: done @ [facility],form received 2Result Comment: [07/31/2015] [facility] 3Admin Note: done @ [facility] 4Admin Note: vis sheet given. 5Admin Note: work 6Admin Note: given at [facility] in [place] 7Admin Note: per pt, done at [facility] 8Admin Note: done @ [facility], form received 9Admin Note: given at work 10Admin Note: given in the fall 11Result Comment: [id number] 12Result Comment: [08/31/2018] [id number] 13Result Comment: [08/24/2015] given w/out incident 14Admin Note: per pt 15Admin Note: [facility] Medications acetaminophen 650 mg oral tablet, extended release 1 tablet, By Mouth, Every 8 hours, PRN NEEDED FOR PAIN, # 90 tablet, 3 Refills, Maintenance, 01/17/23 12:44:00 EDT, [facility], 156.15, cm, 11/29/22 14:40:00 EST, Height, 79.5, [...] each, 10 Refills, Maintenance, 11/25/22 15:18:00 EST, [place], [facility]/pharmacy #2476, replaces 0.15% dose, 1 [...] Soft Stop, 03/14/23 15:31:00 EDT, [facility]/pharmacy #2476, Partial fill upon patient request if theprescription is for a schedule II opioid drug., 155... Start Date: 03/14/23 Status: Ordered ergocalciferol 96639 iu oral capsule 50,000 International_Units, 1, capsule, By Mouth, Every week, # 12 capsule, Refills 0, Tot. Refills0, Maintenance, 04/10/23 9:13:00 EDT, Route to Pharmacy Electronically, [facility]/pharmacy #2476, Partialfill upon patient request if [...] Refills, Maintenance, 03/01/23 14:21:00 EDT, [facility], 156.15, cm, 11/29/22 14:40:00 EST, Height, 79.5, [...] Refills, Maintenance, 03/28/23 13:04:00 EDT, Aerosol, [facility]/pharmacy #2476, replaced Proventil that is [...] Personnel Name: Justa HARRIS, Geni [place] Position: [facility] Associate Professional Member Role: Primary Care Nurse Address: Address: [address] [place] [address]- [place] Name: Talia Matute RN Position: [facility] RN Member Role: Primary Care Nurse Name: Santi James MD Position: [facility] Physician - Primary Care Member Role: PCP Address: Address: [address] [place] [address] Adult [place] [address]- Care Team Related Persons Name: PITER BAILEY Address: home [address] [place] [address] Name: DELMIS ADAMS Address: home [place] [place], [place] Name: RUPERT PALMER Address: home [address] [place], [place] Name: DESIRAE CHAUDHARY Address: home [address] [place], [place]
--- OUTSIDE RECORDS SUMMARY | 2024-07-15 15:41 | XMS_ITS | Continuity of Care Document ---
Author Organization [facility] Address [address] [place] [address]- Care Team Providers Care Dredge Pipeman Name Role Phone Santi James MD Primary Care Physician [facility]counter [facility] Date(s): 02/11/24 - 03/12/24 [facility] [address] [place], [place] [address] [...] (Td) 11/03/99 Given 1Admin Note: done @ [facility],form received 2Result Comment: [07/31/2015] [facility] 3Admin Note: done @ [facility] 4Admin Note: vis sheet given. 5Admin Note: work 6Admin Note: given at [facility] in [place] 7Admin Note: per pt, done at [facility] 8Admin Note: done @ [facility], form received 9Admin Note: given at work 10Admin Note: given in the fall 11Result Comment: [id number] 12Result Comment: [08/31/2018] [id number] 13Result Comment: [08/24/2015] given w/out incident 14Admin [...] tablet, 3 Refills, Maintenance, 01/17/23 12:44:00 EDT, [facility]20, 156.15, cm, 11/29/22 14:40:00 EST, Height, 79.5, [...] 90 Unknown,1 Refills, Maintenance, 06/10/23 8:18:00 EDT, [facility] STORE 15817, 90, USE 1 SPRAY IN BOTH NOSTRILS [...] Refills, Maintenance, 03/10/24 12:10:00 EDT, Tablet, [facility], Partial fill upon patient request if the [...] 4 Refills, Maintenance, 09/02/23 11:04:00 EDT, Tablet, [facility] [...] 12/04/23 7:25:00 EST, Route to Pharmacy Electronically, [facility] STORE 02038, 155, cm, 11/18/23 16:29:00 EST, Height, 83.7, kg, 11/06/23 9:0... Start Date: 12/04/23 Status: Ordered levothyroxine 0.05 mg oral tablet 1 tablet, By Mouth, Daily, # 90 tablet, 3 Refills, Maintenance, 08/12/23 15:31:00 EDT, [facility]/pharmacy#2476, 155, cm, 08/12/23 15:09:00 EDT, Height, 83.9, kg, 03/13/23 4:46:00 EDT, Dry Weight Start Date: 08/12/23 Stop Date: 08/06/24 Status: Ordered montelukast 10 mg oral tablet 1, tablet, By Mouth, Daily, # 90 tablet, Refills 3, Maintenance, 11/23/23 8:40:00 EST, Route to Pharmacy Electronically, [facility] 130[facility], 155, cm, 11/18/23 16:29:00 EST, Height, 83.7, [...] Professional Member Role: Primary Care Nurse Name: Juju QIU, Talia Position: [facility] RN Member Role: Primary Care Nurse Name: Darshan Benz RN Position: [facility] Outreach Member Role: Primary Care Nurse Name: Santi James MD Position: [facility] Physician - Primary Care Member Role: PCP Address: Address: [address] [place] [address] Adult & [place] [address]- Care Team Related Persons Name: PITER BAILEY Address: home [address] [place] [address] Name: DELMIS ADAMS Address: home [address] [place], [place] Name: RUPERT PALMER Address: home [address] [place], [place] Name: DESIRAE CHAUDHARY Address: home [address] [place], [place]
--- OUTSIDE RECORDS SUMMARY | 2024-07-15 15:41 | XMS_ITS | Continuity of Care Document ---
Author Organization [facility] Address [address] [place] [address]- Care Team Providers Care University Administrator Name Role Phone Santi James MD Primary Care Physician Encounter [facility] Date(s): 01/06/24 - 02/05/[address] [address]- Allergies, Adverse Reactions, Alerts Substance Reaction Severity Status doxycycline Hives Active nitrofurantoin Pruritus Rash Active morphine Active predniSONE Anaphylaxis Active benzonatate Speech impediment Active Lopid Muscle cramps Myalgia and myositis unspecified Active Percocet Active Biaxin Upset stomach Active Lipitor Myalgia unspecified Muscle cramps Active Topamax Skin rash Active Levaquin Hives Active Demerol Active ezetimibe-simvastatin Active tiZANidine Anaphylaxis Active Immunizations Given and [...] 5Admin Note: work 6Admin Note: given at [facility] in [place] 7Admin Note: per pt, done at [facility] 8Admin Note: done @ [facility], form received 9Admin Note: given at work 10Admin Note: given in the fall 11Result Comment: [id number] 12Result Comment: [08/31/2018] [id number] 13Result Comment: [08/24/2015] given w/out incident 14Admin [...] tablet, 3 Refills, Maintenance, 01/17/23 12:44:00 EDT, [facility] STORE [address]6669, 156.15, cm, 11/29/22 14:40:00 EST, Height, 79.5, [...] 90 Unknown,1 Refills, Maintenance, 06/10/23 8:18:00 EDT, [facility] STORE 49734, 90, USE 1 SPRAY IN BOTH NOSTRILS 2 TIMES A DAY NEEDED FOR ALLERGIES, 155, cm, ... Start Date: 06/10/23 Status: Ordered azithromycin 250 mg oral tablet 1 tablet = 250 mg, By Mouth, Daily, 2 tablets on first day, then one tablet daily for 4 days, # 6 tablet, 0 Refills, Acute 02/26/24 9:19:00 EDT, 02/05/24 9:19:00 EDT, Tablet, [facility]/pharmacy #6548, Partial fill upon patient request if the prescription is... Start Date: 02/05/24 Stop Date: 02/26/24 Status: Ordered CPAP Machine See Instructions, # 1 each, Maintenance, AutoCPAP 8-14 cm H20, use Daily when sleeping, 01/16/23 16:48:00 EDT, Supply Start Date: 01/16/23 Status: Ordered Diflucan 150 mg oral tablet 1 tablet = 150 mg, By Mouth, Once, # 1 tablet, 0 Refills, Soft Stop, 11/06/23 9:46:00 EST, Tablet, [facility]/pharmacy #2476, Partial fill upon patient request if the prescription is for a schedule II opioid drug., 155, cm, 11/06/23 9:08:00 EST, Height, 83.7... Start Date: 11/06/23 Status: Ordered EpiPen 2-Tramaine 0.3 mg injectable kit = 0.3 mg, Intramuscular, Once, PRN Anaphylactic Reaction, may repeat if necessary, # 1 each, 11 Refills, Soft Stop, 03/14/23 15:31:00 EDT, [facility]/pharmacy #2476, Partial fill upon patient [...] 12/04/23 7:25:00 EST, Route to Pharmacy Electronically, [facility] STORE 49403, 155, cm, 11/18/23 16:29:00 EST, Height, 83.7, [...] 11/23/23 8:40:00 EST, Route to Pharmacy Electronically, [facility] STORE 06717, 155, cm, 11/18/23 16:29:00 EST, Height, 83.7, [...] 4 Refills, Maintenance, 03/28/23 13:04:00 EDT, Aerosol, [facility]/pharmacy #2476, replaced Proventil that is not [...] Refills, Maintenance, 10/28/23 10:28:00 EST, Tablet, [facility], Partial fill upon patient request if the [...] Personnel Name: Justa HARRIS, Geni [place] Position: [facility] Associate Professional Member Role: Primary Care Nurse Address: Address: [address] [facility] [place] [address]- Name: Talia Matute RN Position: [facility] RN Member Role: Primary Care Nurse Name: Darshan Benz RN Position: [facility] Outreach Member Role: Primary Care Nurse Name: Santi James MD Position: [facility] Physician - Primary Care Member Role: PCP Address: Address: [address] [place] [address] Adult & [place] [address]- Care Team Related Persons Name: ALISSONPITER NASH Address: home [address] [place] [address] Name: DELMIS ADAMS Address: home [place], [place] Name: RUPERT PALMER Address: home [address] [place], [place] Name: DESIRAE CHAUDHARY Address: home [address] [place], [place]
--- OUTSIDE RECORDS SUMMARY | 2024-07-15 15:41 | XMS_ITS | Continuity of Care Document ---
Author Organization [facility] Address [address] [place] [address]- Care Team Providers Care Knitting Machine Operator Automatic Name Role Phone Santi James MD Primary Care Physician [facility] [facility] Date(s): 07/14/20 - 08/13/20 [facility] [address] [place] [address]- [facility] Allergies, Adverse Reactions, Alerts Substance Reaction Severity Status doxycycline Hives Active nitrofurantoin Pruritus Rash Active morphine Active benzonatate Speech impediment Active Lopid Muscle cramps Myalgia and myositis unspecified Active Percocet Active Biaxin Upset stomach Active Levaquin Hives Active Bactrim DS Stomach cramps Active Lipitor Myalgia unspecified Muscle cramps Active Zithromax gi upset Active Augmentin hives Active Immunizations Given and [...] the fall 3Admin Note: done @ [facility], form received 4Result Comment: [id number] 5Result Comment: [08/31/2018] [id number] 6Result Comment: [08/24/2015] given w/out incident 7Admin Note: done @ [facility],form received 8Result Comment: [07/31/2015] [facility] 9Admin Note: done @ [facility] 10Admin Note: vis sheet given. 11Admin Note: work 12Admin Note: given at [facility] in [place] 13Admin Note: per pt, done at [facility] 14Admin Note: per pt 15Admin Note: [facility] Medications acetaminophen 650 mg oral tablet, extended release 1 tablet = 650 mg, By Mouth, Every 8 hours, PRN Pain , Moderate, for 30 days, # 90 tablet, 7 Refills, Acute 11/08/20 11:12:00 EST, 03/13/20 11:12:00 EDT, ER Tablet, [facility]/pharmacy #2476, 156, cm, 03/13/20 10:31:00 EDT, Height, 78.8, kg, 12/20/19 10:35:0... Start Date: 03/13/20 Stop Date: 11/08/20 Status: Ordered albuterol 0.083% inhalation solution 3 mL = 2.5 mg, Inhalation, Every 6 hours, PRN for wheezing, Dx: asthma, # 100 each, 4 Refills, Maintenance, 12/01/19 12:54:00 EST, Solution, [facility]/pharmacy #2476, 156, cm, 12/01/19 12:40:00 EST, Height, 79.6, kg, 03/10/19 14:10:00 EDT, Dry Weight Start Date: 12/01/19 Stop Date: 04/29/20 Status: Ordered albuterol CFC free 90 mcg/inh inhalation aerosol 2, puffs, Inhalation, Every 4 hours, PRN, # 9 Gm, Refills 0, Tot. Refills 0, Maintenance, 10/28/17 14:12:34, Aerosol, Route to Pharmacy Electronically, [id number], [facility]/pharmacy #1972, Compound Start Date: 10/28/17 Status: [...] 02/14/20 8:39:00 EDT, Route to Pharmacy Electronically, [facility]/pharmacy #7446, increase in dose, 156, cm, 12/23/19 13:03:00 EST, Height, 78.8, kg, 12/20/19 10:35:00... Start Date: 02/14/20 Stop Date: 04/14/20 Status: Ordered ipratropium nasal 21 mcg/inh spray 2 sprays, Nares, Both, 2 times a day, # 30 mL, 0 Refills, Maintenance, 07/25/20 16:52:00 EDT, [place], [facility]/pharmacy #2476, 2 sprays Nares, Both 2 times a day, 156, cm, 03/13/20 10:31:00 EDT, Height, 78.8, kg, 12/20/19 10:35:00 EST, Dry Weight Start Date: 07/25/20 Status: Ordered levothyroxine 0.05 mg oral tablet 1 tablet = 50 mcg, By Mouth, Daily, # 90 tablet, 3 Refills, Maintenance, 03/13/20 11:08:00 EDT, Tablet, [facility]/pharmacy #2476, 156, cm, 03/13/20 10:31:00 EDT, Height, 78.8, kg, 12/20/19 10:35:00 EST, Dry Weight Start Date: 03/13/20 Stop Date: 03/08/21 Status: Ordered montelukast 10 mg oral tablet 10 mg, 1, tablet, By Mouth, Daily, # 90 tablet, Refills 1, Tot. Refills 1, Maintenance, 03/08/20 9:54:00 EDT, Route to Pharmacy Electronically, [facility]/pharmacy #2476, 156, cm, 12/23/19 13:03:00 EST, Height, [...]
[2024-07-15 15:42] VITALS: BP 134/87; PULSE 89; RESP 16; TEMP 36.9; O2SAT 98
--- OUTSIDE RECORDS SUMMARY | 2024-07-15 15:42 | XMS_ITS | Continuity of Care Document ---
Author Organization [facility] Address [address] [place] [address]- Care Team Providers Care Electronic Engineering Draftsperson Name Role Phone Santi James MD Primary Care Physician Encounter [facility] Date(s): 07/25/20 - 08/24/20 [facility] [address] [place] [address]- [facility] Attending Physician: Admtr, Ar8 Allergies, Adverse Reactions, [...] 07/02/12 G iven influenza virus vaccine, inactivated 08/03/11 G iven influenza virus vaccine, inactivated 12 07/08/10 G iven influenza virus vaccine, inactivated 13 08/22/08 G iven Human Papillomavirus Vaccine 07/05/11 Given influ virus vac, H1N1, inactive(oldterm) 14 12/05/09 Given tetanus-diphtheria toxoids (Td) 15 05/12/07 Given tetanus-diphtheria toxoids (Td) 11/03/99 Given 1Admin Note: given at work 2Admin Note: given in the fall 3Admin Note: done @ [facility], form received 4Result Comment: [id number] 5Result Comment: [08/31/2018] [id number] 6Result Comment: [08/24/2015] given w/out incident 7Admin Note: done @ [facility],form received 8Result Comment: [07/31/2015] [facility] 9Admin Note: done @ [facility] 10Admin Note: vis sheet given. 11Admin Note: work 12Admin Note: given at [facility] 13Admin Note: per pt, done at [facility] 14Admin Note: per pt 15Admin Note: [facility] Medications acetaminophen 650 mg oral tablet, extended release 1 tablet = 650 mg, By Mouth, Every 8 hours, PRN Pain , Moderate, for 30 days, # 90 tablet, 7 Refills, Acute 11/08/20 11:12:00 EST, 03/13/20 11:12:00 EDT, ER Tablet, [facility]/pharmacy #2476, 156, cm, 03/13/20 10:31:00 EDT, Height, 78.8, kg, 12/20/19 10:35:0... Start Date: 03/13/20 Stop Date: 11/08/20 Status: Ordered albuterol 0.083% inhalation solution 3 mL = 2.5 mg, Inhalation, Every 6 hours, PRN for wheezing, Dx: asthma, # 100 each, 4 Refills, Maintenance, 12/01/19 12:54:00 EST, Solution, [facility]/pharmacy #2476, 156, cm, 12/01/19 12:40:00 EST, Height, 79.6, kg, 03/10/19 14:10:00 EDT, Dry Weight Start Date: 12/01/19 Stop Date: 04/29/20 Status: Ordered albuterol CFC free 90 mcg/inh inhalation aerosol 2, puffs, Inhalation, Every 4 hours, PRN, # 9 Gm, Refills 0, Tot. Refills 0, Maintenance, 10/28/17 14:12:34, Aerosol, Route to Pharmacy Electronically, [id number], [facility]/pharmacy #1972, Compound Start Date: 10/28/17 Status: [...] 02/14/20 8:39:00 EDT, Route to Pharmacy Electronically, [facility]/pharmacy #9876, increase in dose, 156, cm, 12/23/19 13:03:00 EST, Height, 78.8, kg, 12/20/19 10:35:00... Start Date: 02/14/20 Stop Date: 04/14/20 Status: Ordered ipratropium nasal 21 mcg/inh spray 2 sprays, Nares, Both, 2 times a day, # 30 mL, 0 Refills, Maintenance, 07/25/20 16:52:00 EDT, [place], [facility]/pharmacy #2476, 2 sprays Nares, Both 2 times a day, 156, cm, 03/13/20 10:31:00 EDT, Height, 78.8, kg, 12/20/19 10:35:00 EST, Dry Weight Start Date: 07/25/20 Status: Ordered levothyroxine 0.05 mg oral tablet 1 tablet = 50 mcg, By Mouth, Daily, # 90 tablet, 3 Refills, Maintenance, 03/13/20 11:08:00 EDT, Tablet, [facility]/pharmacy #2476, 156, cm, 03/13/20 10:31:00 EDT, Height, 78.8, kg, 12/20/19 10:35:00 EST, Dry Weight Start Date: 03/13/20 Stop Date: 03/08/21 Status: Ordered montelukast 10 mg oral tablet 10 mg, 1, tablet, By Mouth, Daily, # 90 tablet, Refills 1, Tot. Refills 1, Maintenance, 03/08/20 9:54:00 EDT, Route to Pharmacy Electronically, [facility]/pharmacy #2476, 156, cm, 12/23/19 13:03:00 EST, [...]
--- OUTSIDE RECORDS SUMMARY | 2024-07-15 15:42 | XMS_ITS | Continuity of Care Document ---
Author Organization [facility] Address [address] [place] [address]- Care Team Providers Care Shirt Operator Name Role Phone Jacob DORAN, Santi Primary Care Physician [facility] Date(s): 11/26/21 - 12/26/21 [facility] [address] [place], [place] [address] Allergies, Adverse Reactions, Alerts Substance [...] (Td) 11/03/99 Given 1Admin Note: done @ [facility],form received 2Result Comment: [07/31/2015] [facility] 3Admin Note: done @ [facility] 4Admin Note: vis sheet given. 5Admin Note: work 6Admin Note: given at [facility] in [place] 7Admin Note: per pt, done at [facility] 8Admin Note: done @ [facility], form received 9Admin Note: given at work 10Admin Note: given in the fall 11Result Comment: [id number] 12Result Comment: [08/31/2018] [id number] 13Result Comment: [08/24/2015] given w/out incident 14Admin [...] 3 Refills, Maintenance, 03/13/21 8:26:00 EDT, Tablet, [id number], 156, cm, 03/13/21 8:16:00 EDT, Height, 78.8, [...] 16 Gm,6 Refills, Maintenance, 11/06/21 10:21:00 EST, [place], [id number], Partial fill upon patientrequest if the prescription is for a schedule II op... Start Date: 11/06/21 Status: Ordered FLUoxetine 10 mg oral capsule 1, capsule, By Mouth, Daily, # 30 capsule, Refills 5, Route to Pharmacy Electronically, [facility], 156, cm, 09/04/21 8:41:00 EDT, Height, 78.8, kg, 12/20/19 10:35:00 EST, Dry Weight Start Date: 10/22/21 Status: Ordered ipratropium nasal 21 mcg/inh spray 2 sprays, Nares, Both, 2 times a day, # 30 mL, 0 Refills, Maintenance, 07/25/20 16:52:00 EDT, [place], [facility]/pharm[facility] #[id number], 2 sprays Nares, Both 2 times a day, 156, cm, 03/13/20 10:31:00 EDT, Height, 78.8, kg, 12/20/19 10:35:00 EST, Dry Weight Start Date: 07/25/20 Status: Ordered levothyroxine 0.05 mg oral tablet 1 tablet = 50 mcg, By Mouth, Daily, # 90 tablet, 3 Refills, Maintenance, 03/13/21 8:24:00 EDT, Tablet, [facility] #[id number], 156, cm, 03/13/21 8:16:00 EDT, Height, 78.8, kg, 12/20/19 10:35:00 EST, Dry Weight Start Date: 03/13/21 Stop Date: 03/08/22 Status: Ordered montelukast 10 mg oral tablet See Instructions, TAKE 1 TABLET BY MOUTH EVERY DAY, # 90 tablet, Refills 1, Instructions Replace Required Details, Route to Pharmacy Electronically, [facility], 156, cm, 09/04/21 8:41:00 EDT, Height, 78.8, [...] each, Refills 4, Route to Pharmacy Electronically, [id number], [facility] 10835, 156, cm, 09/04/21 8:41:00 EDT, Height, 78.8, kg, 12/20/19 10:35:00 EST, Dry Weight Start Date: 10/08/21 Status: Ordered Symbicort 160mcg/4.5mcg Inhaler 2, puffs, Inhalation, 2 times a day, in the morning and the evening use with spacer chamber rinse mouth and throat after use, # 54 Gm, Refills 12, Tot. Refills 12, Maintenance, 09/04/21 9:38:00 EDT, Aerosol, Route to Pharmacy Electronically, [id number]... Start Date: 09/04/21 Status: Ordered Zithromax Z-Tramaine 250 mg oral tablet See Instructions, as directed on package labeling, # 1 pack/packet, 0 Refills, Maintenance, 10/11/21 17:06:00 EST, [facility]/pharmacy #[id number], Partial fill upon patient request if the [...]
--- OUTSIDE RECORDS SUMMARY | 2024-07-15 15:42 | XMS_ITS | Continuity of Care Document ---
Author Organization [facility] Address [address] [place] [address]- Care Team Providers Care Financial Services Technician Name Role Phone Jacob DORAN, Santi Primary Care Physician [facility] Date(s): 01/27/24 - 02/26/24 [facility] [address] [place], [place] [address] Allergies, Adverse Reactions, Alerts Substance Reaction Severity Status doxycycline Hives Active nitrofurantoin Pruritus Rash Active morphine Active Percocet Active Biaxin Upset stomach Active predniSONE Anaphylaxis Active benzonatate Speech impediment Active Lopid Muscle cramps Myalgia and myositis unspecified Active ezetimibe Breast painful Active Lipitor Myalgia [...] (Td) 11/03/99 Given 1Admin Note: done @ [facility],form received 2Result Comment: [07/31/2015] [facility] 3Admin Note: done @ [facility] 4Admin Note: vis sheet given. 5Admin Note: work 6Admin Note: given at [facility] in [place] 7Admin Note: per pt, done at [facility] 8Admin Note: done @ [facility], form received 9Admin Note: given at work 10Admin Note: given in the fall 11Result Comment: [id number] 12Result Comment: [08/31/2018] [id number] 13Result Comment: [08/24/2015] given w/out incident 14Admin [...] tablet, 3 Refills, Maintenance, 01/17/23 12:44:00 EDT, [facility] 559[facility], 156.15, cm, 11/29/22 14:40:00 EST, Height, 79.5, [...] 90 Unknown,1 Refills, Maintenance, 06/10/23 8:18:00 EDT, [facility], 90, USE 1 SPRAY IN BOTH NOSTRILS [...] Refills, Soft Stop, 03/14/23 15:31:00 EDT, [id number], Partial fill upon patient request if theprescription is for a schedule II opioid drug., 155... Start Date: 03/14/23 Status: Ordered fexofenadine 180 mg oral tablet 1 tablet = 180 mg, By Mouth, Daily, PRN for allergy symptoms, # 90 tablet, 4 Refills, Maintenance, 09/02/23 11:04:00 EDT, Tablet, [facility]/pharmacy #2476, Partial fill upon patient request if the prescription is for a schedule II opioid drug., 155, cm, ... Start Date: 09/02/23 Stop Date: 11/25/24 Status: Ordered fluconazole 150 mg oral tablet 1 tablet = 150 mg, By Mouth, Once, repeat dose if still having symptoms in 72 hours, # 2 tablet, 0 Refills, Soft Stop, 12/22/23 13:26:00 EST, Tablet, [facility]/pharmacy #2476, Partial fill upon patient request if the prescription is for a schedule II opioid... Start Date: 12/22/23 Status: Ordered ibuprofen 800 mg oral tablet 1, tablet, By Mouth, 3 times a day, X30 DAYS, STOP ASPIRIN WHILE TAKING THIS., # 90 tablet, Refills1, Maintenance, 12/04/23 7:25:00 EST, [facility], 155, cm, 11/18/23 16:29:00 EST, Height, 83.7, kg, 11/06/23 9:0... Start Date: 12/04/23 Status: Ordered levothyroxine 0.05 mg oral tablet 1 tablet, By Mouth, Daily, # 90 tablet, 3 Refills, Maintenance, 08/12/23 15:31:00 EDT, [facility]/pharmacy#2476, 155, cm, 08/12/23 15:09:00 EDT, Height, 83.9, kg, 03/13/23 4:46:00 EDT, Dry Weight Start Date: 08/12/23 Stop Date: 08/06/24 Status: Ordered montelukast 10 mg oral tablet 1, tablet, By Mouth, Daily, # 90 tablet, Refills 3, Maintenance, 11/23/23 8:40:00 EST, Route to Pharmacy Electronically, [facility], 155, cm, 11/18/23 16:29:00 EST, Height, 83.7, [...] 4 Refills, Maintenance, 03/28/23 13:04:00 EDT, Aerosol, [facility]/pharmacy #2476, replaced Proventil that is [...] Personnel Name: Justa HARRIS, Geni Orlando Position: [facility] Associate Professional Member Role: Primary Care Nurse Address: Address: [address] [place] [address]- Name: Talia Matute RN Position: [facility] RN Member Role: Primary Care Nurse Name: Darshan Benz RN Position: [facility] Outreach Member Role: Primary Care Nurse Name: Santi James MD Position: [facility] Physician - Primary Care Member Role: PCP Address: Address: [address] [place] [address] Adult [place] [address]- Care Team Related Persons Name: PITER BAILEY Address: home [address] [place] [address] Name: DELMIS ADAMS Address: home [address] [place], [place] Name: RUPERT PALMER Address: home [address] [place], [place] Name: DESIRAE CHAUDHARY Address: home [address] [place], [place]
--- OUTSIDE RECORDS SUMMARY | 2024-07-15 15:42 | XMS_ITS | Continuity of Care Document ---
Author Organization [facility] Address [address] [place] [address]- Care Team Providers Care American Indian Policy Specialist Name Role Phone Santi James MD Primary Care Physician Encounter [facility] Date(s): 05/24/24 - 05/31/24 [facility] [address] [place] [address]- Encounter Diagnosis Sinusitis(Discharge Diagnosis) - 05/24/24 Attending Physician: Santi James MD Allergies, Adverse Reactions, Alerts Substance Reaction Severity Status morphine Active Percocet Active doxycycline Hives Active nitrofurantoin Pruritus Rash Active predniSONE Anaphylaxis Active benzonatate Speech impediment Active Lopid Muscle cramps Myalgia and myositis unspecified Active Biaxin Upset stomach Active ezetimibe Breast painful Active Lipitor Myalgia [...] Note: given at [facility] in [place] 7Admin Note: per pt, done at [facility] 8Admin Note: [facility], form received 9Admin Note: given at work 10Admin Note: given in the fall 11Result Comment: [id number] 12Result Comment: [08/31/2018] [id number] 13Result Comment: [08/24/2015] given w/out incident 14Admin [...] tablet, 3 Refills, Maintenance, 01/17/23 12:44:00 EDT, [facility], 156.15, cm, 11/29/22 14:40:00 EST, Height, 79.5, [...] 90 Unknown,1 Refills, Maintenance, 06/10/23 8:18:00 EDT, [facility], 90, USE 1 SPRAY IN BOTH NOSTRILS [...] Refills, Maintenance, 05/20/24 13:48:00 EDT, Tablet, [facility], Partial fill upon patient request if the prescription is for a schedule... Start Date: 05/20/24 Status: Ordered EpiPen 2-Tramaine 0.3 mg injectable kit = 0.3 mg, Intramuscular, Once, PRN Anaphylactic Reaction, may repeat if necessary, # 1 each, 11 Refills, Soft Stop, 03/14/23 15:31:00 EDT, [facility]/pharmacy #2476, Partial fill [...] 04/05/24 15:20:00 EDT, Route to Pharmacy Electronically, [facility]/pharmacy... Start Date: 04/05/24 Stop Date: 07/04/24 Status: [...] 11/23/23 8:40:00 EST, Route to Pharmacy Electronically, [facility] 45478, 155, cm, 11/18/23 16:29:00 EST, Height, 83.7, [...] 3 Refills, Maintenance, 05/24/24 13:19:00 EDT, Aerosol, [facility]/pharmacy #2476, 155, cm, 05/24/24 13:16:00 EDT, Height, 83.7, kg, 11/06/23 9:08:00 EST, Dry Weight Start Date: 05/24/24 Stop Date: 09/21/24 Status: Ordered Vitamin D3 1000 intl units oral tablet 1 tablet = 25 mcg, By Mouth, Daily, # 90 tablet, 2 Refills, Maintenance, 01/27/24 14:50:00 EDT, Tablet, [facility]/pharmacy #2476, may use OTC formulation, 155, [...] Clini sophia Service Informant Sinusitis Discharge Diagnosis 05/24/24 Vital Signs Most recent to oldest [Reference Range]: 1 Height 155 cm (05/24/24 1:16 PM) Weight 84.0 kg (05/24/24 1:16 PM) Oxygen Saturation [94-100 %] 96 % (05/24/24 1:16 PM) Pulse Rate [55-90 bpm] 85 bpm (05/24/24 1:16 PM) Body Mass Index [18.5-24.99 kg/m2] 34.96 kg/m2 *>HHI* (05/24/24 1:16 PM) Blood Pressure [90-138/55-84 mm Hg] 132/ 74mm Hg (05/24/24 1:16 PM) Temperature [96.8-100.4 DegF] 99.8 DegF (05/24/24 1:16 PM) Mode of Delivery (Oxygen) Room air (05/24/24 1:16 PM) Blood pressure sites Arm, left (05/24/24 1:16 PM) Temperature Route Temporal (05/24/24 1:16 PM) Social History Social History Type Response Smoking Status Never smoker entered on: 10/12/14 Sex Note * Courtney Almendarez: PERFORM Event Display: Patient Education/Instruction Authored Date: [id number] Ambulatory Adult Visit Summary [facility] [address] [place] [address] Name: IAN THOMPSONKEVWILBERT : 1965?? Visit: 05/24/2024 13:03?? Ambulatory Visit Instructions ?? Your Care Team Primary Care Provider Santi James MD? This Visit Provider Santi James MD Your Diagnosis Colicky RUQ abdominal pain Sinusitis Vitals Signs Temperature: 99.8 DegF Height: 155 cm Pulse Rate: 85 bpm Weight: 84 kg Systolic Blood Pressure: 132 mm Hg Body Mass Index:??34.96 kg/m2??Critical Diastolic Blood Pressure: 74 mm Hg Body surface area: 1.9 Oxygen Saturation: 96 % ?? What to do next Instructions From Your Provider 1. get lab work to check your liver today. 2. will also arrange for ultrasound of the right upper quadrant of your abdomen 3. I renewed your albuterol inhaler as the one you have may already be . 4. may use OTC Coricidin HBP for nasal congestion. 5. replace azithromycin with Augmentin. Take this twice a day for 1 week only 6. keep well hydrated. Scheduled Follow-Up Appointments Friday 12:15 PM EDT ?? [facility] [address] [place] [address]- Status: Pending Friday 4:20 PM EDT ?? With: Santi James MD Where: [facility] [address] [place] [address]- Status: Pending Friday 1:00 PM EDT ?? With: Lucho DORAN, Jonna Valencia Where: [facility] [address] [address]- Status: Pending Future Orders US RUQ, Routine, Reason for Exam: Cholecystitis, Once, *Est. 06/01/24 Hepatic Function Panel (Liver Function Panel) - Routine, Once, 05/24/24 13:28:00 EDT, Future Order,[facility], Blood?? CBC - Routine, Once, 05/24/24 13:28:00 EDT, Future Order, [facility], Blood?? Lipase - Routine, Once, 05/24/24 13:33:00 EDT, Future Order, [facility], Blood?? Medications The list below reflects the information in our records and provided by you today along with any changes made during this visit. Please continue your medications until treatment is completed or stopped by your provider. If this is different from the information you have or there are other questions,please contact the prescribing provider. What How Much When Why Instructions New Amoxicillin-Clavulanate (Augmentin 875 mg-125 mg oral tablet) 1 tab(s) Oral Twice a day Duration: 7 Days with food or milk ?? Pickup at [facility]/pharmacy #[id number] Changed Ibuprofen (ibuprofen 800 mg oral tablet) 1 tab(s) Oral 3 times a day as needed for Pain , Moderate Duration: 30 Days X30 DAYS, STOP ASPIRIN WHILE TAKING THIS. Take with food and/ or milk ?? Unchanged Acetaminophen (acetaminophen 650 mg oral tablet, extended release) 1 tab(s) Oral Every 8 hours as needed for NEEDED FOR PAIN Unchanged Albuterol (Ventolin HFA 108 mcg/ inh inhalation aerosol with adapter) 2 puff(s) Inhalation 4 times a day as needed for for wheezing Duration: 30 Days Pickup at [facility]/pharmacy #8043 Unchanged Aspirin (aspirin 81 mg oral tablet) 1 tab(s) Oral Daily Duration: 30 Days Unchanged Azelastine Nasal (azelastine 137 mcg/ inh (0.1%) nasal spray) See instructions USE 1 SPRAY IN BOTH NOSTRILS 2 TIMES A DAY NEEDED FOR ALLERGIES ?? Unchanged Cholecalciferol (Vitamin D3 1000 intl units oral tablet) 1 tab(s) Oral Daily Duration: 90 Days Unchanged Durable Medical Equipment (RAVINDRA bandage 4 inch width) See instructions apply as demonstrated once daily Dx: right gastrocnemius strain ?? Unchanged Durable Medical Equipment (CPAP Machine) See instructions AutoCPAP 8-14 cm H20, use Daily when sleeping ?? Unchanged EPINEPHrine (EpiPen 2-Tramaine 0.3 mg injectable kit) 0.3 Milligram Intramuscular Once as needed for Anaphylactic Reaction Anaphylaxis may repeat if necessary ?? Unchanged Fexofenadine (fexofenadine 180 mg oral tablet) 1 tab(s) Oral Daily as needed for for allergy symptoms Duration: 90 Days Unchanged Fluconazole (Diflucan 150 mg oral tablet) See instructions 1 tablet By Mouth Once, repeat in 72 hours if no resolution of discharge. ?? Unchanged Levothyroxine (levothyroxine 0.05 mg oral tablet) 1 tab(s) Oral Daily Duration: 90 Days Unchanged Montelukast (montelukast 10 mg oral tablet) 1 tab(s) Oral Daily Unchanged Multivitamin (multivitamin Multiple Vitamins oral tablet, chewable) 1 tab(s) Oral Daily Duration: 30 Days Pharmacy Information [facility]/pharmacy #[id number]: [address], [place] [id number] [phone] Test Performed Below is a partial list of the tests performed during your Visit. You may have had other tests and procedures not included in this list. Please discuss all test results with your provider. CBC?-- Results Pending -- Lipase?-- Results Pending -- Liver Function Panel?-- Results Pending -- You will be contacted within 72 hours with your results. Medications and Immunizations Administered Medications Given During Visit No medications given during this visit.?? Allergies (NKA means No Known Allergies) Biaxin??(Upset stomach) Demerol Levaquin??(Hives) Lipitor??(Myalgia unspecified, Muscle cramps) Lopid??(Muscle cramps, Myalgia and myositis unspecified) Percocet Topamax??(Skin rash) benzonatate??(Speech impediment) doxycycline??(Hives) ezetimibe??(Breast painful) morphine nitrofurantoin??(Pruritus, Rash) predniSONE??(Anaphylaxis) tiZANidine??(Anaphylaxis) Common Emergency Awareness Tips IS IT A STROKE? Act FAST and Check for these signs: FACE Does the face look uneven? ARM Does one arm drift down? SPEECH Does their speech sound strange? TIME Call at any sign of stroke ?? Heart Attack Signs Chest discomfort: Most heart attacks involve discomfort in the center of the chest and lasts more than a few minutes, or goes away and comes back. It can feel like uncomfortable pressure, squeezing, fullness or pain. Discomfort in upper body: Symptoms can include pain or discomfort in one or both arms, back, neck, jaw or stomach. Shortness of breath: With or without discomfort. Other signs: Breaking out in a cold sweat, nausea, or lightheaded. Remember, MINUTES DO MATTER. If you experience any of these heart attack warning signs, call to get immediate medical attention! ?? Smoking can increase your chances of developing chronic health problems and can cause harmful effects to other family members in your house. If you smoke, you are strongly encouraged to quit. Please call [employer] Link at [phone] or 3-618-879Browsercast.com (7442) or log in to [email or web address] for referrals to smoking cessation programs. ?? The National Suicide Prevention Hotline is available 26/05 if you or someone you know needs to find a reason to keep living. By calling 3-397-962422-528-hknd (4295) you'll be connected to a skilled, trained counselor at a crisis center in your area. [facility] You can view and manage your care through the patient portal or by using a health care oleg of your choosing. [employer] is a website that allows you to securely view your medical information including your hospital discharge summary, office visit summaries, medications and follow-up visits. You can also request appointments, renew medications, and request access to your medical information using a health care oleg of your choosing, or just ask a question. You can enroll at [email or web address] or register during your next office visit. [facility], in keeping with [facility] guidance, no longer requires face masks for staff, patientsor visitors in most situations. Similiar to time spent indoors at other locations, there is the chance that you were exposed to repiratory viruses during your time with us (such as flu or COVID-19). If you develop symptoms concerning for a viral respiratory infection, please seek testing (and treatment if indicated) from your medical provider or home test kit. ?? Disclaimer: The information provided is of a general nature and is intended to be used in conjunction with the recommendations and advice of your health care practitioner. Every effort has been made to ensure that the information provided is accurate and complete at the time it is provided to you however, as your needs change, or, as new information becomes available, different or additional instructions may be required. ?? If you have questions, please consult with your primary care provider or pharmacist, as appropriate. This information is not intended to serve as substitution for assessment and evaluation by a qualified health care provider. If you do not have a primary care provider, you may find a [facility] provider by calling [facility] at [phone]. Patient Care team information Care Team Personnel Name: Geni Marr NP Position: [facility] Associate Professional Member Role: Primary Care Nurse Name: Talia Matute RN Position: [facility] RN Member Role: Primary Care Nurse Name: Darshan Benz RN Position: [facility] Outreach Member Role: Primary Care Nurse Name: Santi James MD Position: [facility] Physician - Primary Care Member Role: PCP Address: Address: [address] [place] [address] Adult [facility] Pediatric Medicine [address] Care Team Related Persons Name: ALISSONPITER NASH Address: home [address] [place] [address] Name: DELMIS ADAMS Address: home [address] [place], [place] Name: RUPERT PALMER Address: home [address] [place], [place] Name: DESIRAE CHAUDHARY Address: home [address] [place], [place]
--- OUTSIDE RECORDS SUMMARY | 2024-07-15 15:42 | XMS_ITS | Continuity of Care Document ---
Author Organization [facility] Address [address] [place] [address]- Care Team Providers Care Trestle Mainternance Laborer Name Role Phone Santi James MD Primary Care Physician [facility] Date(s): 07/18/23 - 08/17/23 [facility] [address] [place], [place] [address] Allergies, Adverse Reactions, Alerts Substance Reaction Severity Status nitrofurantoin Pruritus Rash Active morphine Active predniSONE Anaphylaxis Active Percocet Active doxycycline Hives Active benzonatate Speech impediment Active Lopid [...] (Td) 11/03/99 Given 1Admin Note: done @ [facility],form received 2Result Comment: [07/31/2015] [facility] 3Admin Note: done @ [facility] 4Admin Note: vis sheet given. 5Admin Note: work 6Admin Note: given at [facility] [place] 7Admin Note: per pt, done at [facility] 8Admin Note: done @ [facility], form received 9Admin Note: given at work 10Admin Note: given in the fall 11Result Comment: [id number] 12Result Comment: [08/31/2018] [id number] 13Result Comment: [08/24/2015] given w/out incident 14Admin [...] tablet, 3 Refills, Maintenance, 01/17/23 12:44:00 EDT, [facility], 156.15, cm, 11/29/22 14:40:00 EST, Height, 79.5, [...] 90 Unknown,1 Refills, Maintenance, 06/10/23 8:18:00 EDT, [facility], 90, USE 1 SPRAY IN BOTH NOSTRILS 2 TIMES A DAY NEEDED FOR ALLERGIES, 155, cm, ... Start Date: 06/10/23 Status: Ordered CeleBREX 100 mg oral capsule 1 capsule = 100 mg, By Mouth, 2 times a day, PRN for pain, # 60 capsule, 4 Refills, Maintenance, 08/12/23 15:29:00 EDT, Capsule, [facility]/pharmacy #[id number], replaces ibuprofen, 155, cm, 08/12/23 15:09:00 EDT, [...] 155... Start Date: 03/14/23 Status: Ordered ergocalciferol 90246 iu oral capsule 50,000 International_Units, 1, capsule, [...] HARRIS, Geni Orlando Position: [facility] Associate Professional Member Role: Primary Care Nurse Address: Address: [address] [place] [address] [address]- Name: Juju QIU, Talia Position: [facility] RN Member Role: Primary Care Nurse Name: Santi James MD Position: [facility] Physician - Primary Care Member Role: PCP Address: Address: [address] [place] [address] Adult & [place] [address]- Care Team Related Persons Name: PITER BAILEY Address: home [address] [place] [address] Name: DELMIS ADAMS Address: [place] [address] Name: RUPERT PALMER Address: [address] [place] [address] Name: DESIRAE CHAUDHARY Address: home [address] [place], [place]
--- OUTSIDE RECORDS SUMMARY | 2024-07-15 15:42 | XMS_ITS | Continuity of Care Document ---
Author Organization [facility] Address [address] [place] [address]- Care Team Providers Care Power Driven Brush Maker Name Role Phone Santi James MD Primary Care Physician [place] [facility] [place]): [place] 08/17/23 [facility] [address] [place], [place] [address] Attending Physician: Ken Galarza Admitting Physician: AdmKen [...] Given 1Admin Note: done @ [facility],form received 2Result Comment: [07/31/2015] [facility] 3Admin Note: done @ [facility] 4Admin Note: vis sheet given. 5Admin Note: work 6Admin Note: given at [facility] [place] 7Admin Note: per pt, done at [facility] 8Admin Note: done @ [facility], form received 9Admin Note: given at work 10Admin Note: given in the fall 11Result Comment: [id number] 12Result Comment: [08/31/2018] [id number] 13Result Comment: [08/24/2015] given w/out incident 14Admin [...] tablet, 3 Refills, Maintenance, 01/17/23 12:44:00 EDT, [facility] [id number], 156.15, cm, 11/29/22 14:40:00 EST, Height, 79.5, [...] 90 Unknown,1 Refills, Maintenance, 06/10/23 8:18:00 EDT, [facility] [id number], 90, USE 1 SPRAY IN BOTH NOSTRILS 2 TIMES A DAY NEEDED FOR ALLERGIES, 155, cm, ... Start Date: 06/10/23 Status: Ordered CeleBREX 100 mg oral capsule 1 capsule = 100 mg, By Mouth, 2 times a day, PRN for pain, # 60 capsule, 4 Refills, Maintenance, 08/12/23 15:29:00 EDT, Capsule, [id number], replaces ibuprofen, 155, cm, 08/12/23 15:09:00 EDT, [...] 155... Start Date: 03/14/23 Status: Ordered ergocalciferol 79679 iu oral capsule 50,000 International_Units, 1, capsule, [...] Personnel Name: Justa HARRIS, Geni Orlando Position: [facility] Associate Professional Member Role: Primary Care Nurse Address: Address: [address] [place] [address]- Name: Juju QIU, Talia Position: [facility] RN Member Role: Primary Care Nurse Name: Jacob DORAN, Santi Position: [facility] Physician - Primary Care Member Role: PCP Address: Address: [address] [place] [address] Adult [facility] [place] [address]- Care Team Related Persons Name: PITER BAILEY Address: home [address] [place] [address] Name: DELMIS ADAMS Address: home [place], [place] Name: RUPERT PALMER Address: home [address] [place], [place] Name: DESIRAE CHAUDHARY Address: home [address] [place], [place]
--- OUTSIDE RECORDS SUMMARY | 2024-07-15 15:42 | XMS_ITS | Continuity of Care Document ---
Author Organization [facility] Address [address] [place] [address]- Care Team Providers Care Engineering Design Manager Name Role Phone Santi James MD Primary Care Physician [facility]): [facility]22 - 04/24/23 [facility] [address] [place] [address] Attending Physician: Raffy Mayo MD Admitting Physician: Raffy Mayo MD Referring Physician: Santi James MD Allergies, [...] [facility] [place] 7Admin Note: per pt, done at [facility] 8Admin Note: done @ [facility], form received 9Admin Note: given at work 10Admin Note: given in the fall 11Result Comment: [id number] 12Result Comment: [08/31/2018] [id number] 13Result Comment: [08/24/2015] given w/out incident 14Admin Note: per pt 15Admin Note: [facility] Medications acetaminophen 650 mg oral tablet, extended release 1 tablet, By Mouth, Every 8 hours, PRN NEEDED FOR PAIN, # 90 tablet, 3 Refills, Maintenance, 01/17/23 12:44:00 EDT, [facility], 156.15, cm, 11/29/22 14:40:00 EST, Height, 79.5, [...] 10 Refills, Maintenance, 11/25/22 15:18:00 EST, [place], [facility]/pharmacy #2476, replaces 0.15% dose, 1 sprays Nares, [...] 155... Start Date: 03/14/23 Status: Ordered ergocalciferol 05825 iu oral capsule 50,000 International_Units, 1, capsule, By Mouth, Every week, # 12 capsule, Refills 0, Tot. Refills0, Maintenance, 04/10/23 9:13:00 EDT, Route to Pharmacy Electronically, [facility]/pharmacy #2476, Partialfill upon patient request [...] Refills, Maintenance, 03/01/23 14:21:00 EDT, [facility], 156.15, cm, 11/29/22 14:40:00 EST, Height, 79.5, [...] Refills, Maintenance, 03/28/23 13:04:00 EDT, Aerosol, [facility]/pharmacy #2476, replaced Proventil that is not available, [...] Team Personnel Name: Geni Marr NP Position: [facility] Associate Professional Member Role: Primary Care Nurse Address: Address: [address] [place] [address] [place] [address]- Name: Talia Matute RN Position: [facility] RN Member Role: Primary Care Nurse Name: Santi James MD Position: S Physician - Primary Care Member Role: PCP Address: Address: [address] [place] [address] Adult & [place] [address]- Care Team Related Persons Name: PITER BAILEY Address: home [address] [place] [address] Name: DELMIS ADAMS Address: home [place], [place] Name: RUPERT PALMER Address: home [address] [place], [place] Name: DESIRAE CHAUDHARY Address: home [address] [place], [place]
--- OUTSIDE RECORDS SUMMARY | 2024-07-15 15:42 | XMS_ITS | Continuity of Care Document ---
Author Organization [facility] Address [address] [place] [address]- Care Team Providers Care Wardrobe Mistress Name Role Phone Santi James MD Primary Care Physician [facility] Date[facility]s): 08/09/23 - 12/07/23 [facility] [address] [place], [place] [address] Attending Physician: Santi James MD Allergies, [...] 6Admin Note: given at [facility] in [place] 7Admin Note: per pt, done at [facility] 8Admin Note: done @ [facility], form received 9Admin Note: given at work 10Admin Note: given in the fall 11Result Comment: [id number] 12Result Comment: [08/31/2018] [id number] 13Result Comment: [08/24/2015] given w/out incident 14Admin [...] tablet, 3 Refills, Maintenance, 01/17/23 12:44:00 EDT, [facility] 06643, 156.15, cm, 11/29/22 14:40:00 EST, Height, 79.5, [...] 90 Unknown,1 Refills, Maintenance, 06/10/23 8:18:00 EDT, [facility] 35596, 90, USE 1 SPRAY IN BOTH NOSTRILS [...] Soft Stop, 11/06/23 9:46:00 EST, Tablet, [facility]/pharmacy #8581, Partial fill upon patient request if the prescription is for a schedule II opioid drug., 155, cm, 11/06/23 9:08:00 EST, Height, 83.7... Start Date: 11/06/23 Status: Ordered EpiPen 2-Tramaine 0.3 mg injectable kit = 0.3 mg, Intramuscular, Once, PRN Anaphylactic Reaction, may repeat if necessary, # 1 each, 11 Refills, Soft Stop, 03/14/23 15:31:00 EDT, [facility]/pharmacy #2476, Partial fill upon patient request if theprescription is for a schedule II opioid drug., 155... Start Date: 03/14/23 Status: Ordered fexofenadine 180 mg oral tablet 1 tablet = 180 mg, By Mouth, Daily, PRN for allergy symptoms, # 90 tablet, 4 Refills, Maintenance, 09/02/23 11:04:00 EDT, Tablet, [facility]/pharmacy #2476, Partial fill upon patient request if the prescription is for a schedule II opioid drug., 155, cm, ... Start Date: 09/02/23 Stop Date: 11/25/24 Status: Ordered fluconazole 150 mg oral tablet 1 tablet = 150 mg, By Mouth, Once, repeat dose if still having symptoms in 72 hours, # 2 tablet, 0 Refills, Soft Stop, 11/28/23 12:38:00 EST, Tablet, [facility]/pharmacy #2476, Partial fill upon patient request if the prescription is for a schedule II opioid... Start Date: 11/28/23 Status: Ordered ibuprofen 800 mg oral tablet 1, tablet, By Mouth, 3 times a day, X30 DAYS, STOP ASPIRIN WHILE TAKING THIS., # 90 tablet, Refills1, Maintenance, 12/04/23 7:25:00 EST, Route to Pharmacy Electronically, [facility] STORE 05128, 155, cm, 11/18/23 16:29:00 EST, Height, 83.7, kg, 11/06/23 9:0... Start Date: 12/04/23 Status: Ordered levothyroxine 0.05 mg oral tablet 1 tablet, By Mouth, Daily, # 90 tablet, 3 Refills, Maintenance, 08/12/23 15:31:00 EDT, [facility]/pharmacy#2476, 155, cm, 08/12/23 15:09:00 EDT, Height, 83.9, kg, 03/13/23 4:46:00 EDT, Dry Weight Start Date: 08/12/23 Stop Date: 08/06/24 Status: Ordered montelukast 10 mg oral tablet 1, tablet, By Mouth, Daily, # 90 tablet, Refills 3, Maintenance, 11/23/23 8:40:00 EST, Route to Pharmacy Electronically, [facility] STORE [id number], 155, cm, 11/18/23 16:29:00 EST, Height, 83.7, [...] Refills, Maintenance, 03/28/23 13:04:00 EDT, Aerosol, [facility]/pharmacy #2476, replaced Proventil that is not available, 155, cm, 03/13/23 11:02:00 EDT, Height, 83.9, kg, 03/13/23 4:46:00 EDT... Start Date: 03/28/23 Stop Date: 08/25/23 Status: Ordered Zetia 10 mg oral tablet 1 tablet = 10 mg, By Mouth, Daily, # 30 tablet, 1 Refills, Maintenance, 10/28/23 10:28:00 EST, Tablet, [facility]/pharmacy #2476, Partial fill upon patient request [...] Personnel Name: Justa HARRIS, Geni Orlando Position: [facility] Associate Professional Member Role: Primary Care Nurse Address: Address: [address] [place] [address]- Name: Talia Matute RN Position: [facility] RN Member Role: Primary Care Nurse Name: Santi James MD Position: [facility] Physician - Primary Care Member Role: PCP Address: Address: [address] [place] [address] Adult & [place] [address]- Care Team Related Persons Name: PITER BAILEY Address: home [address] [place] [address] Name: DELMIS ADAMS Address: [place] [address] Name: RUPERT PALMER Address: home [address] [place] [address] Name: DESIRAE CHAUDHARY Address: home [address] [place], [place]
--- OUTSIDE RECORDS SUMMARY | 2024-07-15 15:42 | XMS_ITS | Continuity of Care Document ---
Author Organization [facility] Address [address] [place] [address]- Care Team Providers Care Infant Toddler Lead Teacher Name Role Phone Jacob DORAN, Santi Primary Care Physician [facility] Date[facility]s): 03[facility]22 - 04/04/22 [facility] [address] [place], [place] [address] Allergies, Adverse [...] (Td) 11/03/99 Given 1Admin Note: done @ [facility],form received 2Result Comment: [07/31/2015] [facility] 3Admin Note: done @ [facility] 4Admin Note: vis sheet given. 5Admin Note: work 6Admin Note: given at [facility] in [place] 7Admin Note: per pt, done at [facility] 8Admin Note: done @ [facility], form received 9Admin Note: given at work 10Admin Note: given in the fall 11Result Comment: [id number] 12Result Comment: [08/31/2018] [id number] 13Result Comment: [08/24/2015] given w/out incident 14Admin Note: per pt 15Admin Note: [facility] Medic[facility] Albuterol (Eqv-ProAir HFA) 90 mcg/inh inhalation aerosol 2 puffs, Inhalation, Every 6 hours, PRN Wheezing/Shortness of Breath, # 6.7 Gm, 11 Refills, Maintenance, 02/26/22 9:18:00 EDT, [facility]/pharmacy #8297, Partial fill upon patient request if the [...] each, 4 Refills, Maintenance, 02/07/22 12:08:00 EDT, [place], [facility]/pharmacy #2476, Partial fill upon patient request if the prescription is for a schedule II opioid drug., 1 sprays Nares... Start Date: 02/07/22 Stop Date: 07/07/22 Status: Ordered cetirizine 10 mg oral tablet 1 tablet, By Mouth, Daily, # 90 tablet, 3 [facility]ills, [facility], 156, cm, 03/18/22 8:26:00 EDT, Height Start [...] 16 Gm,6 Refills, Maintenance, 11/06/21 10:21:00 EST, [place], [facility], Partial fill upon patientrequest if the prescription is for a schedule II op... Start Date: 11/06/21 Status: Ordered levothyroxine 0.05 mg oral tablet See Instructions, TAKE 1 TABLET BY MOUTH EVERY DAY, # 90 tablet, 1 Refills, [facility] STORE 37318, 156, cm, 02/07/22 11:31:00 EDT, Height Start Date: 02/19/22 Status: Ordered loratadine 10 mg oral tablet 10 mg, 1, tablet, By Mouth, Daily, # 30 tablet, Refills 11, Tot. Refills 11, Maintenance, 02/26/22 9:18:00 EDT, Route to Pharmacy Electronically, [facility]/pharmacy #2476, Partial fill [...] 02/26/22 9:18:00 EDT, Route to Pharmacy Electronically, [facility]/pharmacy #0556, Partial fill upon patient requestif the prescription is for a schedule II opioid lauro... Start Date: 02/26/22 Status: Ordered Symbicort 160mcg/4.5mcg Inhaler 2, puffs, Inhalation, 2 times a day, in the morning and the evening use with spacer chamber rinse mouth and throat after use, # 54 Gm, Refills 12, Tot. Refills 12, Maintenance, 02/26/22 9:18:00 EDT, Aerosol, Route to Pharmacy Electronically, [id number]... Start Date: 02/26/22 Status: Ordered Vitamin D3 [...]
--- OUTSIDE RECORDS SUMMARY | 2024-07-15 15:42 | XMS_ITS | Continuity of Care Document ---
Author Organization [facility] Address [address] [place] [address]- Care Team Providers Care Innersole Maker Name Role Phone Santi James MD Primary Care Physician [facility]): 04/11/23 - 05/11/23 [facility] [address] [place], [place] [address] Allergies, Adverse Reactions, Alerts Substance Reaction [...] 6Admin Note: given at [facility] in [place] 7Admin Note: per pt, done at [facility] 8Admin Note: done @ [facility], form received 9Admin Note: given at work 10Admin Note: given in the fall 11Result Comment: [id number] 12Result Comment: [08/31/2018] [id number] 13Result Comment: [08/24/2015] given w/out incident 14Admin Note: per pt 15Admin Note: [facility] Medications acetaminophen 650 mg oral tablet, extended release 1 tablet, By Mouth, Every 8 hours, PRN NEEDED FOR PAIN, # 90 tablet, 3 Refills, Maintenance, 01/17/23 12:44:00 EDT, [facility], 156.15, cm, 11/29/22 14:40:00 EST, Height, 79.5, [...] each, 10 Refills, Maintenance, 11/25/22 15:18:00 EST, [place], [facility]/pharmacy #2476, replaces 0.15% dose, [...] 11 Refills, Soft Stop, 03/14/23 15:31:00 EDT, [facility]/pharmacy #2476, Partial fill upon patient request if theprescription is for a schedule II opioid drug., 155... Start Date: 03/14/23 Status: Ordered ergocalciferol 90239 iu oral capsule 50,000 International_Units, 1, capsule, By Mouth, Every week, # 12 capsule, Refills 0, Tot. Refills0, Maintenance, 04/10/23 9:13:00 EDT, Route to Pharmacy Electronically, [facility]/pharmacy #2476, Partialfill upon patient [...] Refills, Maintenance, 03/01/23 14:21:00 EDT, [facility], 156.15, cm, 11/29/22 14:40:00 EST, Height, 79.5, [...] 4 Refills, Maintenance, 03/28/23 13:04:00 EDT, Aerosol, [facility]/pharmacy #2476, replaced Proventil that [...] Name: Justa HARRIS, Geni Orlando Position: [facility] Associate Professional Member Role: Primary Care Nurse Address: Address: [address] [place] [address]- [place] Name: Talia Matute RN Position: [facility] RN Member Role: Primary Care Nurse Name: Santi James MD Position: [facility] Physician - Primary Care Member Role: PCP Address: Address: [address] [place] [address] Adult [place] [address]- Care Team Related Persons Name: PITER BAILEY Address: home [address] [place] [address] Name: DELMIS ADAMS Address: home [place] [place], [place] Name: RUPERT PALMER Address: home [address] [place], [place] Name: DESIRAE CHAUDHARY Address: home [address] [place] [employer], [place]
--- OUTSIDE RECORDS SUMMARY | 2024-07-15 15:42 | XMS_ITS | Continuity of Care Document ---
Author Organization [facility] Address [address] [place] [address]- Care Team Providers Care Operating Room Specialist Name Role Phone Santi James MD Primary Care Physician [facility]): 02/27/23 - 03/29/23 [facility] [address] [place], [place] [address] Allergies, Adverse Reactions, Alerts Substance Reaction [...] at [facility] [place] 7Admin Note: per pt, done at [facility] 8Admin Note: done @ [facility], form received 9Admin Note: given at work 10Admin Note: given in the fall 11Result Comment: [id number] 12Result Comment: [08/31/2018] [id number] 13Result Comment: [08/24/2015] given w/out incident 14Admin Note: per pt 15Admin Note: [facility] Medications acetaminophen 650 mg oral tablet, extended release 1 tablet, By Mouth, Every 8 hours, PRN NEEDED FOR PAIN, # 90 tablet, 3 Refills, Maintenance, 01/17/23 12:44:00 EDT, [facility], 156.15, cm, 11/29/22 14:40:00 EST, Height, 79.5, [...] each, 10 Refills, Maintenance, 11/25/22 15:18:00 EST, [place], [facility]/pharmacy #2476, replaces 0.15% dose, 1 [...] tablet, 1 Refills, Maintenance, 03/01/23 14:21:00 EDT, [facility] STORE 03336, 156.15, cm, 11/29/22 14:40:00 EST, Height, 79.5, [...] 4 Refills, Maintenance, 03/28/23 13:04:00 EDT, Aerosol, [facility]/pharmacy #4736, replaced Proventil that is not available, 155, [...] Role: Primary Care Nurse Address: Address: [address] [place] [address]- Name: Talia Matute RN Position: [facility] ED RN W/OE and Tasks Member Role: Primary Care Nurse Name: Santi James MD Position: [facility] Physician - Primary Care Member Role: PCP Address: Address: [address] [place] [address] Adult & [place] [address]- Care Team Related Persons Name: PITER BAILEY Address: home [address] [place] [address] Name: DELMIS ADAMS Address: home [place], [place] Name: RUPERT PALMER Address: home [address] [place], [place] Name: DESIRAE CHAUDHARY Address: home [address] [place], [place]
--- OUTSIDE RECORDS SUMMARY | 2024-07-15 15:42 | XMS_ITS | Continuity of Care Document ---
Author Organization [facility] Address [address] [place] [address]- Care Team Providers Care Automotive Technician Instructor Name Role Phone Jacob DORAN, Santi Primary Care Physician [facility]): 07[facility]24[facility]22 - 08/23/22 [facility] [address] [place], [place] [address] Allergies, Adverse Reactions, Alerts Substance [...] (Td) 11/03/99 Given 1Admin Note: done @ [facility],form received 2Result Comment: [07/31/2015] [facility] 3Admin Note: done @ [facility] 4Admin Note: vis sheet given. 5Admin Note: work 6Admin Note: given at [facility] in [place] 7Admin Note: per pt, done at [facility] 8Admin Note: done @ [facility], form received 9Admin Note: given at work 10Admin Note: given in the fall 11Result Comment: [id number] 12Result Comment: [08/31/2018] [id number] 13Result Comment: [08/24/2015] given w/out incident 14Admin Note: per pt 15Admin Note: [facility] Medications acetaminophen 650 mg oral tablet, extended release 1 tablet, By Mouth, Every 8 hours, PRN NEEDED FOR PAIN, # 90 tablet, 3 Refills, [facility] STORE 66102,156, cm, 04/04/22 7:36:00 EDT, Height, 78.9, kg, [...] each, 4 Refills, Maintenance, 02/07/22 12:08:00 EDT, [place], [facility]/pharmacy #2476, Partial fill upon patient request if the prescription is for a schedule II opioid drug., 1 sprays Nares... Start Date: 02/07/22 Stop Date: 07/07/22 Status: Ordered cetirizine 10 mg oral tablet 1 tablet, By Mouth, Daily, # 90 tablet, 3 Refills, [facility] STORE 87470, 156, cm, 03/18/22 8:26:00 EDT, Height Start [...] 0 Refills, Soft Stop, 08/08/22 13:22:00 EDT, Tablet,[facility]/pharmacy #2476, Partial fill [...] mL, 1 Refills, [facility] STORE 67244, 90, USE 1 SPRAY IN EACH NOSTRL 2 TIMES A DAY X 5 DAYS, AND THEN DAILY THEREAFTER, 156, cm, 04/04/22 7:36:00 EDT, [place]... Start Date: 04/30/22 Status: Ordered levothyroxine 0.05 mg oral tablet See Instructions, TAKE 1 TABLET BY MOUTH EVERY DAY, # 90 tablet, 1 Refills, [facility] STORE 58520, 156, cm, 02/07/22 11:31:00 EDT, Height Start [...] Route to Pharmacy Electronically, [facility]/pharmacy #3666, Partial fill upon patient requestif the prescription is for a schedule II opioid lauro... Start Date: 02/26/22 Status: Ordered Symbicort 160mcg/4.5mcg Inhaler 2, puffs, Inhalation, 2 times a day, in the morning and the evening use with spacer chamber rinse mouth and throat after use, # 54 Gm, Refills 12, Tot. Refills 12, Maintenance, 02/26/22 9:18:00 EDT, Aerosol, Route to Pharmacy Electronically, [id number]... Start Date: 02/26/22 Status: Ordered Vitamin D3 [...] pack/packet, 0 Refills, Maintenance, 08/08/22 13:22:00 EDT, [facility]/pharmacy #2196, Partial fill upon patient request if the [...] Personnel Name: Santi James MD Address: Address: [address] [place] [address] Adult & Pediatric Medicine [address]
--- OUTSIDE RECORDS SUMMARY | 2024-07-15 15:42 | XMS_ITS | Continuity of Care Document ---
Author Organization [facility] Address [address] [place] [address]- Care Team Providers Care Principal Clerk Typist Name Role Phone Santi James MD Primary Care Physician [facility]): [facility]23 - 12/11/23 [facility] [address] [place], [place] [address] Allergies, Adverse Reactions, Alerts Substance Reaction Severity [...] given at [facility] in [place] 7Admin Note: per pt, done at [facility] 8Admin Note: [facility], [facility] 9Admin Note: given at work 10Admin Note: given in the fall 11Result Comment: [id number] 12Result Comment: [08/31/2018] [id number] 13Result Comment: [08/24/2015] given w/out incident 14Admin [...] tablet, 3 Refills, Maintenance, 01/17/23 12:44:00 EDT, [facility] STORE 84387, 156.15, cm, 11/29/22 14:40:00 EST, Height, 79.5, [...] 90 Unknown,1 Refills, Maintenance, 06/10/23 8:18:00 EDT, [facility] STORE 16959, 90, USE 1 SPRAY IN BOTH NOSTRILS [...] Refills, Soft Stop, 11/06/23 9:46:00 EST, Tablet, [facility]/pharmacy #7400, Partial fill upon patient request if the prescription is for a schedule II opioid drug., 155, cm, 11/06/23 9:08:00 EST, Height, 83.7... Start Date: 11/06/23 Status: Ordered EpiPen 2-Tramaine 0.3 mg injectable kit = 0.3 mg, Intramuscular, Once, PRN Anaphylactic Reaction, may repeat if necessary, # 1 each, 11 Refills, Soft Stop, 03/14/23 15:31:00 EDT, [facility]/pharmacy #[id number], Partial fill upon patient request if theprescription is for a schedule II opioid drug., 155... Start Date: 03/14/23 Status: Ordered fexofenadine 180 mg oral tablet 1 tablet = 180 mg, By Mouth, Daily, PRN for allergy symptoms, # 90 tablet, 4 Refills, Maintenance, 09/02/23 11:04:00 EDT, Tablet, [facility]/pharmacy #2476, Partial fill upon patient request if the prescription is for a schedule II opioid drug., 155, cm, ... Start Date: 09/02/23 Stop Date: 11/25/24 Status: Ordered fluconazole 150 mg oral tablet 1 tablet = 150 mg, By Mouth, Once, repeat dose if still having symptoms in 72 hours, # 2 tablet, 0 Refills, Soft Stop, 11/28/23 12:38:00 EST, Tablet, [facility]/pharmacy #2476, Partial fill upon patient request if the prescription is for a schedule II opioid... Start Date: 11/28/23 Status: Ordered ibuprofen 800 mg oral tablet 1, tablet, By Mouth, 3 times a day, X30 DAYS, STOP ASPIRIN WHILE TAKING THIS., # 90 tablet, Refills1, Maintenance, 12/04/23 7:25:00 EST, Route to Pharmacy Electronically, [facility] STORE 08154, 155, cm, 11/18/23 16:29:00 EST, Height, 83.7, kg, 11/06/23 9:0... Start Date: 12/04/23 Status: Ordered levothyroxine 0.05 mg oral tablet 1 tablet, By Mouth, Daily, # 90 tablet, 3 Refills, Maintenance, 08/12/23 15:31:00 EDT, [facility]/pharmacy#2476, 155, cm, 08/12/23 15:09:00 EDT, Height, 83.9, kg, 03/13/23 4:46:00 EDT, Dry Weight Start Date: 08/12/23 Stop Date: 08/06/24 Status: Ordered montelukast 10 mg oral tablet 1, tablet, By Mouth, Daily, # 90 tablet, Refills 3, Maintenance, 11/23/23 8:40:00 EST, Route to Pharmacy Electronically, [facility], 155, cm, 11/18/23 16:29:00 EST, Height, 83.7, [...] 4 Refills, Maintenance, 03/28/23 13:04:00 EDT, Aerosol, [facility]/pharmacy #2476, replaced Proventil that is not available, 155, cm, 03/13/23 11:02:00 EDT, Height, 83.9, kg, 03/13/23 4:46:00 EDT... Start Date: 03/28/23 Stop Date: 08/25/23 Status: Ordered Zetia 10 mg oral tablet 1 tablet = 10 mg, By Mouth, Daily, # 30 tablet, 1 Refills, Maintenance, 10/28/23 10:28:00 EST, Tablet, [facility]/pharmacy #2476, Partial fill upon patient request [...] Member Role: Primary Care Nurse Address: Address: [address] [place] [address]- Name: Talia Matute RN Position: [facility] RN Member Role: Primary Care Nurse Name: Santi James MD Position: [facility] Physician - Primary Care Member Role: PCP Address: Address: [address] [place] [address] Adult [place] [address]- Care Team Related Persons Name: PITER BAILEY Address: home [address] [place] [address] Name: DELMIS ADAMS Address: home [place], [place] Name: RUPERT PALMER Address: home [address] [facility], [place] Name: DESIRAE CHAUDHARY Address: home [address] [place], [place]
--- OUTSIDE RECORDS SUMMARY | 2024-07-15 15:42 | XMS_ITS | Continuity of Care Document ---
Author Organization [facility] Address [address] [place] [address]- Care Team Providers Care Truck Service Technician Name Role Phone Santi James MD Primary Care Physician Encounter [facility] Date(s): 05/09/22 - 06/08/22 [facility] [address] [address] Attending Physician: Ken Galarza Admitting Physician: AdmKen hwang Referring Physician: AdmtrKen Allergies, Adverse Reactions, Alerts Substance Reaction Severity Status nitrofurantoin Pruritus Rash Active morphine Active Lopid Muscle cramps Myalgia and myositis unspecified Active Percocet Active Lipitor Myalgia unspecified Muscle cramps Active doxycycline Hives Active benzonatate Speech impediment Active Biaxin Upset stomach Active Demerol Active [...] (Td) 11/03/99 Given 1Admin Note: done @ [facility],form received 2Result Comment: [07/31/2015] [facility] 3Admin Note: done @ [facility] 4Admin Note: vis sheet given. 5Admin Note: work 6Admin Note: given at [facility] 7Admin Note: per pt, done at [facility] 8Admin Note: done @ [facility], form received 9Admin Note: given at work 10Admin Note: given in the fall 11Result Comment: [id number] 12Result Comment: [08/31/2018] [id number] 13Result Comment: [08/24/2015] given w/out incident 14Admin Note: per pt 15Admin Note: [facility] Medications acetaminophen 650 mg oral tablet, extended release 1 tablet, By Mouth, Every 8 hours, PRN NEEDED FOR PAIN, # 90 tablet, 3 Refills, [facility] STORE 31375,156, cm, 04/04/22 7:36:00 EDT, Height, 78.9, kg, 04/04/22 7:36:00 EDT, Dry Weight Start Date: 04/08/22 Status: Ordered Albuterol (Eqv-ProAir HFA) 90 mcg/inh inhalation aerosol 2 puffs, Inhalation, Every 6 hours, PRN Wheezing/Shortness of Breath, # 6.7 Gm, 11 Refills, Maintenance, 02/26/22 9:18:00 EDT, [facility]/pharmacy #2476, Partial fill upon [...] each, 4 Refills, Maintenance, 02/07/22 12:08:00 EDT, [place], [facility]/pharmacy #2476, Partial fill upon patient request if the prescription is for a schedule II opioid drug., 1 sprays Nares... Start Date: 02/07/22 Stop Date: 07/07/22 Status: Ordered cetirizine 10 mg oral tablet 1 tablet, By Mouth, Daily, # 90 tablet, 3 Refills, [facility] STORE 92051, 156, cm, 03/18/22 8:26:00 EDT, Height Start [...] 0 Refills, Soft Stop, 04/08/22 13:39:00 EDT, Tablet,[facility]/pharmacy #2476, Partial fill upon patient request if the prescription is for a schedule II opioid drug., 156, cm, 04/04/22 7:36:00 EDT, Height, 78.... Start Date: 04/08/22 Status: Ordered fluticasone 50 mcg/inh nasal spray See Instructions, USE 1 SPRAY IN EACH NOSTRL 2 TIMES A DAY X 5 DAYS, AND THEN DAILY THEREAFTER, # 48 mL, 1 Refills, [facility] STORE 81597, 90, USE 1 SPRAY IN EACH NOSTRL 2 TIMES A DAY X 5 DAYS, AND THEN DAILY THEREAFTER, 156, cm, 04/04/22 7:36:00 EDT, Heigh... Start Date: 04/30/22 Status: Ordered levothyroxine 0.05 mg oral tablet See Instructions, TAKE 1 TABLET BY MOUTH EVERY DAY, # 90 tablet, 1 Refills, [facility] STORE 73542, 156, cm, 02/07/22 11:31:00 EDT, Height Start Date: 02/19/22 Status: Ordered loratadine 10 mg oral tablet 10 mg, 1, tablet, By Mouth, Daily, # 30 tablet, Refills 11, Tot. Refills 11, Maintenance, 02/26/22 9:18:00 EDT, Route to Pharmacy Electronically, [facility]/pharmacy #5346, Partial fill upon patient requestif the prescription [...] 02/26/22 9:18:00 EDT, Route to Pharmacy Electronically, [facility]/pharmacy #8256, Partial fill upon patient requestif the prescription is for a schedule II opioid lauro... Start Date: 02/26/22 Status: Ordered Symbicort 160mcg/4.5mcg Inhaler 2, puffs, Inhalation, 2 times a day, in the morning and the evening use with spacer chamber rinse mouth and throat after use, # 54 Gm, Refills 12, Tot. Refills 12, Maintenance, 02/26/22 9:18:00 EDT, Aerosol, Route to Pharmacy Electronically, [id number]... Start Date: 02/26/22 Status: Ordered Vitamin D3 [...] 0 Refills, Maintenance, 04/08/22 12:19:00 EDT, [facility], Partial fill upon patient request if the [...]
--- OUTSIDE RECORDS SUMMARY | 2024-07-15 15:43 | XMS_ITS | Continuity of Care Document ---
Author Organization [facility] Address [address] [place] [address]- Care Team Providers Care Licensed Sales Assistant Name Role Phone Santi James MD Primary Care Physician [facility] Date[facility]): 06/10/22 - 07/10/22 [facility] [address] [place], [place] [email or web address] Allergies, Adverse Reactions, Alerts Substance Reaction Severity [...] 6Admin Note: given at [facility] in [place] 7Admin Note: per pt, done at [facility] 8Admin Note: done @ [facility], form received 9Admin Note: given at work 10Admin Note: given in the fall 11Result Comment: [id number] 12Result Comment: [08/31/2018] [id number] 13Result Comment: [08/24/2015] given w/out incident 14Admin Note: per pt 15Admin Note: [facility] Medications acetaminophen 650 mg oral tablet, extended release 1 tablet, By Mouth, Every 8 hours, PRN NEEDED FOR PAIN, # 90 tablet, 3 Refills, [facility] STORE 39379,156, cm, 04/04/22 7:36:00 EDT, Height, 78.9, kg, 04/04/22 7:36:00 EDT, Dry Weight Start Date: 04/08/22 Status: Ordered Albuterol (Eqv-ProAir HFA) 90 mcg/inh inhalation aerosol 2 puffs, Inhalation, Every 6 hours, PRN Wheezing/Shortness of Breath, # 6.7 Gm, 11 Refills, Maintenance, 02/26/22 9:18:00 EDT, [facility]/pharmacy #2476, Partial fill upon patient [...] each, 4 Refills, Maintenance, 02/07/22 12:08:00 EDT, [place], [facility]/pharmacy #2476, Partial fill upon patient request if the prescription is for a schedule II opioid drug., 1 sprays Nares... Start Date: 02/07/22 Stop Date: 07/07/22 Status: Ordered cetirizine 10 mg oral tablet 1 tablet, By Mouth, Daily, # 90 tablet, 3 Refills, [facility] STORE 05179, 156, cm, 03/18/22 8:26:00 EDT, Height Start [...] 0 Refills, Soft Stop, 06/20/22 13:59:00 EDT, Tablet,[facility]/pharmacy #2276, Partial fill upon patient request if the prescription is for a schedule II opioid drug., 155, cm, 06/06/22 11:17:00 EDT, Height, 79... Start Date: 06/20/22 Status: Ordered fluticasone 50 mcg/inh nasal spray See Instructions, USE 1 SPRAY IN EACH NOSTRL 2 TIMES A DAY X 5 DAYS, AND THEN DAILY THEREAFTER, # 48 mL, 1 Refills, [facility] STORE 90583, 90, USE 1 SPRAY IN EACH NOSTRL 2 TIMES A DAY X 5 DAYS, AND THEN DAILY THEREAFTER, 156, cm, 04/04/22 7:36:00 EDT, Heigh... Start Date: 04/30/22 Status: Ordered levothyroxine 0.05 mg oral tablet See Instructions, TAKE 1 TABLET BY MOUTH EVERY DAY, # 90 tablet, 1 Refills, [facility] STORE 08155, 156, cm, 02/07/22 11:31:00 EDT, Height Start Date: 02/19/22 Status: Ordered loratadine 10 mg oral tablet 10 mg, 1, tablet, By Mouth, Daily, # 30 tablet, Refills 11, Tot. Refills 11, Maintenance, 02/26/22 9:18:00 EDT, Route to Pharmacy Electronically, [facility]/pharmacy #[id number], Partial fill upon patient [...] 02/26/22 9:18:00 EDT, Route to Pharmacy Electronically, [facility]/pharmacy #2476, Partial fill upon patient [...] 9:18:00 EDT, Aerosol, Route to Pharmacy Electronically, [id number]... Start Date: 02/26/22 Status: Ordered Vitamin D3 [...] pack/packet, 0 Refills, Maintenance, 06/17/22 17:01:00 EDT, [facility]/pharmacy #2476, Partial fill upon patient [...] Team Personnel Name: Santi James MD Address: [address] [place] [address] Adult & Pediatric Medicine [address]
--- OUTSIDE RECORDS SUMMARY | 2024-07-15 15:43 | XMS_ITS | Continuity of Care Document ---
Author Organization [facility] Address [address] [place] [address]- Care Team Providers Care Animal Park Code Enforcement Officer Name Role Phone Jacob DORAN, Santi Primary Care Physician [facility] Date(s): 01/20/23 - 02/19/23 [facility] [address] [place], [place] [address] Allergies, Adverse Reactions, Alerts Substance Reaction [...] (Td) 11/03/99 Given 1Admin Note: done @ [facility],form received 2Result Comment: [07/31/2015] [facility] 3Admin Note: done @ [facility] 4Admin Note: vis sheet given. 5Admin Note: work 6Admin Note: given at [facility] 7Admin Note: per pt, done at [facility] 8Admin Note: done @ [facility], form received 9Admin Note: given at work 10Admin Note: given in the fall 11Result Comment: [id number] 12Result Comment: [08/31/2018] [id number] 13Result Comment: [08/24/2015] given w/out incident 14Admin Note: per pt 15Admin Note: [facility] Medications acetaminophen 650 mg oral tablet, extended release 1 tablet, By Mouth, Every 8 hours, PRN NEEDED FOR PAIN, # 90 tablet, 3 Refills, Maintenance, 01/17/23 12:44:00 EDT, [facility] STORE 81712, 156.15, cm, 11/29/22 14:40:00 EST, Height, 79.5, kg, 06/06/22 11:17:00 EDT, Dry Weight Start Date: 01/17/23 Status: Ordered Albuterol (Eqv-ProAir HFA) 90 mcg/inh inhalation aerosol 2 puffs, Inhalation, Every 6 hours, PRN Wheezing/Shortness of Breath, # 6.7 Gm, 11 Refills, Maintenance, 08/29/22 9:07:00 EDT, [facility]/pharmacy #2476, Partial fill upon patient [...] each, 10 Refills, Maintenance, 11/25/22 15:18:00 EST, [place], [facility]/pharmacy #2476, replaces 0.15% dose, 1 [...] 16 Gm, 11 Refills, 08/29/22 9:07:00 EDT, [facility]/pharmacy #2476, USE 1 SPRAY IN EACH NOSTRL 2 TIMES A DAYX 5 DAYS, AND THEN DAILY THEREAFTER, 156.15, cm, 10... Start Date: 08/29/22 Status: Ordered levothyroxine 0.05 mg oral tablet See Instructions, TAKE 1 TABLET BY MOUTH EVERY DAY, # 90 tablet, 1 Refills, 09/01/22 19:54:00 EDT, [facility]/pharmacy #2476, 156.15, cm, 08/29/22 8:44:00 EDT, Height, 79.5, kg, 06/06/22 11:17:00 EDT, Dry Weight Start Date: 09/01/22 Status: Ordered loratadine 10 mg oral tablet 10 mg, 1, tablet, By Mouth, Daily, # 30 tablet, Refills 11, Tot. Refills 11, Maintenance, 08/29/22 9:07:00 EDT, Route to Pharmacy Electronically, [facility]/pharmacy #2476, Partial fill upon patient [...] 08/29/22 9:07:00 EDT, Route to Pharmacy Electronically, [facility]/pharmacy #7796, Partial fill upon patient requestif the prescription is for a schedule II opioid lauro... Start Date: 08/29/22 Status: Ordered Symbicort 160mcg/4.5mcg Inhaler 2, puffs, Inhalation, 2 times a day, in the morning and the evening use with spacer chamber rinse mouth and throat after use, # 1 each, Refills 5, Tot. Refills 5, Maintenance, 10/17/22 10:03:00 EST, Aerosol, Route to Pharmacy Electronically, [id number]... Start Date: 10/17/22 Status: Ordered Vitamin D3 [...] Role: Primary Care Nurse Address: Address: [address] [place] [address]- Name: Santi James MD Position: [facility] Primary Care Physician Member Role: PCP Address: Address: [address] [place] [address]- Care Team Related Persons Name: PITER BAILEY Address: home [address] [place] [address] Name: DELMIS ADAMS Address: home [place], [place] Name: RUPERT PALMER Address: home [address] [place], [place] Name: DESIRAE CHAUDHARY Address: home [address] [place], [place]
--- OUTSIDE RECORDS SUMMARY | 2024-07-15 15:43 | XMS_ITS | Continuity of Care Document ---
Author Organization [facility] Address [address] [place] [address]- Care Team Providers Care Banker Mason Name Role Phone Santi James MD Primary Care Physician [facility]): 04[facility]11/23 - 05/11/23 [facility] [address] [place], [place] [address] Allergies, Adverse Reactions, Alerts Substance [...] Note: given at [facility] in [place] 7Admin Note: per pt, done at [facility] 8Admin Note: done @ [facility], form received 9Admin Note: given at work 10Admin Note: given in the fall 11Result Comment: [id number] 12Result Comment: [08/31/2018] [id number] 13Result Comment: [08/24/2015] given w/out incident 14Admin Note: per pt 15Admin Note: [facility] Medications acetaminophen 650 mg oral tablet, extended release 1 tablet, By Mouth, Every 8 hours, PRN NEEDED FOR PAIN, # 90 tablet, 3 Refills, Maintenance, 01/17/23 12:44:00 EDT, [facility], 156.15, cm, 11/29/22 14:40:00 EST, Height, 79.5, [...] each, 10 Refills, Maintenance, 11/25/22 15:18:00 EST, [place], [facility]/pharmacy #2476, replaces 0.15% dose, [...] 11 Refills, Soft Stop, 03/14/23 15:31:00 EDT, [facility]/pharmacy #2476, Partial fill upon patient request if theprescription is for a schedule II opioid drug., 155... Start Date: 03/14/23 Status: Ordered ergocalciferol 66764 iu oral capsule 50,000 International_Units, 1, capsule, By Mouth, Every week, # 12 capsule, Refills 0, Tot. Refills0, Maintenance, 04/10/23 9:13:00 EDT, Route to Pharmacy Electronically, [facility]/pharmacy #2476, Partialfill upon patient request [...] Refills, Maintenance, 03/01/23 14:21:00 EDT, [facility], 156.15, cm, 11/29/22 14:40:00 EST, Height, 79.5, [...] 4 Refills, Maintenance, 03/28/23 13:04:00 EDT, Aerosol, [facility]/pharmacy #2476, replaced Proventil that is [...] Role: Primary Care Nurse Address: Address: [address] [place] [address]- [place] Name: Talia Matute RN Position: [facility] RN Member Role: Primary Care Nurse Name: Santi James MD Position: [facility] Physician - Primary Care Member Role: PCP Address: Address: [address] [place] [address] Adult & [place] [address]- Care Team Related Persons Name: PITER BAILEY Address: home [address] [place] [id number] Name: DELMIS DAAMS Address: [place], [place] Name: RUPERT PALMER Address: home [address] [place], [place] Name: DESIRAE CHAUDHARY Address: home [address] [place], [place]
--- OUTSIDE RECORDS SUMMARY | 2024-07-15 15:43 | XMS_ITS | Continuity of Care Document ---
Author Organization [facility] Address [address] [place] [address]- Care Team Providers Care Tobacco Prevention Health Educator Name Role Phone Jacob DORAN, Santi Primary Care Physician [facility]): 12[facility]03[facility]19 - 12/10/19 [facility] [address] [place] [address]- [facility] Attending Physician: George Luong MD Allergies, Adverse Reactions, Alerts Substance [...] in the fall 3Admin Note: done @ [facility], form received 4Result Comment: [id number] 5Result Comment: [08/31/2018] [id number] 6Result Comment: [08/24/2015] given w/out incident 7Admin Note: done @ [facility],form received 8Result Comment: [07/31/2015] [facility] 9Admin Note: done @ [facility] 10Admin Note: vis sheet given. 11Admin [...] 11:16:00 EDT, 12/03/19 11:16:00 EST, ER Tablet, [facility]/pharmacy #2476, 156, cm, 12/03/19 8:37:00 EST, Height, [...] 4 Refills, Maintenance, 12/01/19 12:54:00 EST, [place], [facility]/pharmacy #2476, 156, cm, 12/01/19 12:40:00 EST, Height, 79.6, kg, 03/10/19 14:10:00 EDT, Dry Weight Start Date: 12/01/19 Stop Date: 04/29/20 Status: Ordered albuterol CFC free 90 mcg/inh inhalation aerosol 2, puffs, Inhalation, Every 4 hours, PRN, # 9 Gm, Refills 0, Tot. Refills 0, Maintenance, 10/28/17 14:12:34, Aerosol, Route to Pharmacy Electronically, [id number], [facility]/pharmacy #1972, Compound Start Date: 10/28/17 Status: Ordered [...] 12/11/19 12:54:00 EST, 12/01/19 12:54:00 EST, Tablet, [facility]/pharmacy #2476, replaces doxycycline which gave her hives, 156, [...] 08/16/19 14:35:23 EDT, Route to Pharmacy Electronically, [id number], [facility]/pharmacy #0716, increase in dose Start Date: 08/16/19 Stop [...] 09/13/19 13:49:27 EST, Route to Pharmacy Electronically, [id number], [facility]/pharmacy #2476 Start Date: 09/13/19 Stop Date: 05/10/20 [...] oldest [Reference Range]: 1 Height 156 cm (12/03/19 8:37 AM) Weight 79.0 kg (12/03/19 8:37 AM) Oxygen Saturation [94-100 %] 99 % (12/03/19 8:37 AM) Pulse Rate [55-90 bpm] 84 bpm (12/03/19 8:37 AM) Body Mass Index [18.5-24.99] 32.46 *>HHI* (12/03/19 8:37 AM) Blood Pressure [90-138/55-84 mm Hg] 122/ 78mm Hg (12/03/19 8:37 AM) Temperature [96.8-100.4 DegF] 98.1 DegF (12/03/19 8:37 AM) Mode of Delivery (Oxygen) Room air (12/03/19 8:37 AM) Blood pressure sites Arm, left (12/03/19 8:37 AM) Temperature Route Oral (12/03/19 8:37 AM) Social History Social History Type Response Smoking Status Never smoker entered on: 10/12/14 Sex
--- OUTSIDE RECORDS SUMMARY | 2024-07-15 15:43 | XMS_ITS | Continuity of Care Document ---
Author Organization [facility] Address [address] [place] [address]- Care Team Providers Care Manager Grocery Name Role Phone Santi James MD Primary Care Physician [facility]): [facility]21 - 08/29/21 [facility] [address] [place], [place] [address] Allergies, Adverse Reactions, [...] (Td) 11/03/99 Given 1Admin Note: done @ [facility],form received 2Result Comment: [07/31/2015] [facility] 3Admin Note: done @ [facility] 4Admin Note: vis sheet given. 5Admin Note: work 6Admin Note: given at [facility] in [place] 7Admin Note: per pt, done at [facility] 8Admin Note: done @ [facility], form received 9Admin Note: given at work 10Admin Note: given in the fall 11Result Comment: [id number] 12Result Comment: [08/31/2018] [id number] 13Result Comment: [08/24/2015] given w/out incident 14Admin Note: per pt 15Admin Note: [facility] Medications acetaminophen 650 mg oral tablet, extended release 1 tablet = 650 mg, By Mouth, Every 8 hours, PRN Pain , Moderate, for 30 days, # 90 tablet, 7 Refills, Acute 10/24/21 12:47:00 EST, 02/26/21 12:47:00 EDT, ER Tablet, [facility] #[id number], 156, cm, 03/13/20 10:31:00 EDT, Height, 78.8, kg, ... Start Date: 02/26/21 Stop Date: 10/24/21 Status: Ordered albuterol 0.083% inhalation solution 3 mL = 2.5 mg, Inhalation, Every 6 hours, PRN for wheezing, Dx: asthma, # 100 each, 4 Refills, Maintenance, 12/01/19 12:54:00 EST, Solution, [facility]/pharmacy #[id number], 156, cm, 12/01/19 12:40:00 EST, Height, 79.6, kg, 03/10/19 14:10:00 EDT, Dry Weight Start Date: 12/01/19 Stop Date: 04/29/20 Status: Ordered albuterol CFC free 90 mcg/inh inhalation aerosol 2, puffs, Inhalation, Every 4 hours, PRN, # 1 each, Refills 3, Tot. Refills 3, Maintenance, 03/13/21 8:25:00 EDT, Aerosol, Route to Pharmacy Electronically, [id number], [facility] #[id number], 156, cm, 03/13/21 8:16:00 E... Start Date: [...] 3 Refills, Maintenance, 03/13/21 8:26:00 EDT, Tablet, [facility] #[id number], 156, cm, 03/13/21 8:16:00 EDT, Height, 78.8, [...] 16 Gm,0 Refills, Maintenance, 08/02/21 11:22:00 EDT, [place], [facility] #[id number], Partial fill upon patient request if the prescription is for a sched... Start Date: 08/02/21 Status: Ordered ipratropium nasal 21 mcg/inh spray 2 sprays, Nares, Both, 2 times a day, # 30 mL, 0 Refills, Maintenance, 07/25/20 16:52:00 EDT, [place], [facility]/pharmacy #[id number], 2 sprays Nares, Both 2 times a day, 156, cm, 03/13/20 10:31:00 EDT, Height, 78.8, kg, 12/20/19 10:35:00 EST, Dry Weight Start Date: 07/25/20 Status: Ordered levothyroxine 0.05 mg oral tablet 1 tablet = 50 mcg, By Mouth, Daily, # 90 tablet, 3 Refills, Maintenance, 03/13/21 8:24:00 EDT, Tablet, [facility] #[id number], 156, cm, 03/13/21 8:16:00 EDT, Height, 78.8, kg, 12/20/19 10:35:00 EST, Dry Weight Start Date: 03/13/21 Stop Date: 03/08/22 Status: Ordered montelukast 10 mg oral tablet See Instructions, TAKE 1 TABLET BY MOUTH DAILY, # 90 tablet, Refills 1, Instructions Replace Required Details, [facility][id number], 156, cm, 03/13/21 8:35:00EDT, Height, 78.8, kg, [...] Refills, Soft Stop, 08/16/21 16:24:00 EDT, Tablet, [facility]/pharmacy #[id number], 156, cm, 08/16/21 15:58:00 EDT, Height, 78.8, kg, 12/20... Start Date: 08/16/21 Status: Ordered Qvar Redihaler 40 mcg/inh inhalation aerosol 1 puffs, Inhalation, 2 times a day, rinse mouth and throat after use, # 1 each, 0 Refills, Maintenance, 09/14/20 8:47:00 EST, [facility]/pharmacy #[id number], 1 puffs Inhalation 2 times a day,x30 days,Instr:rinsemouth and throat after use, 156, cm, 03/13/20 10:31... Start Date: 09/14/20 Stop Date: 10/14/20 Status: Ordered Zithromax Z-Tramaine 250 mg oral tablet See Instructions, as directed on package labeling, # 1 pack/packet, 0 Refills, Maintenance, 08/16/21 16:24:00 EDT, [id number], Partial fill upon patient [...]
--- OUTSIDE RECORDS SUMMARY | 2024-07-15 15:43 | XMS_ITS | Continuity of Care Document ---
Author Organization [facility] Address [address] [place] [address]- Care Team Providers Care Silk Brusher Name Role Phone Santi James MD Primary Care Physician [facility] Date[facility]s): 06/17/22 - 07/17/22 [facility] [address] [place], [place] [address] Allergies, Adverse Reactions, Alerts Substance [...] (Td) 11/03/99 Given 1Admin Note: done @ [facility],form received 2Result Comment: [07/31/2015] [facility] 3Admin Note: done @ [facility] 4Admin Note: vis sheet given. 5Admin Note: work 6Admin Note: given at [facility] in [place] 7Admin Note: per pt, done at [facility] 8Admin Note: done @ [facility], form received 9Admin Note: given at work 10Admin Note: given in the fall 11Result Comment: [id number] 12Result Comment: [08/31/2018] [id number] 13Result Comment: [08/24/2015] given w/out incident 14Admin Note: per pt 15Admin Note: [facility] Medications acetaminophen 650 mg oral tablet, extended release 1 tablet, By Mouth, Every 8 hours, PRN NEEDED FOR PAIN, # 90 tablet, 3 Refills, [facility] STORE 72045,156, cm, 04/04/22 7:36:00 EDT, Height, 78.9, kg, 04/04/22 7:36:00 EDT, Dry Weight Start Date: 04/08/22 Status: Ordered Albuterol (Eqv-ProAir HFA) 90 mcg/inh inhalation aerosol 2 puffs, Inhalation, Every 6 hours, PRN Wheezing/Shortness of Breath, # 6.7 Gm, 11 Refills, Maintenance, 02/26/22 9:18:00 EDT, [facility]/pharmacy #[id number], Partial fill upon patient [...] each, 4 Refills, Maintenance, 02/07/22 12:08:00 EDT, [place], [facility]/pharmacy #[id number], Partial fill upon patient request if the prescription is for a schedule II opioid drug., 1 sprays Nares... Start Date: 02/07/22 Stop Date: 07/07/22 Status: Ordered cetirizine 10 mg oral tablet 1 tablet, By Mouth, Daily, # 90 tablet, 3 Refills, [facility] ST[facility] 70730, 156, cm, 03/18/22 8:26:00 EDT, Height Start [...] 0 Refills, Soft Stop, 06/20/22 13:59:00 EDT, Tablet,[facility]/pharmacy #4476, Partial fill upon patient request if the prescription is for a schedule II opioid drug., 155, cm, 06/06/22 11:17:00 EDT, Height, 79... Start Date: 06/20/22 Status: Ordered fluticasone 50 mcg/inh nasal spray See Instructions, USE 1 SPRAY IN EACH NOSTRL 2 TIMES A DAY X 5 DAYS, AND THEN DAILY THEREAFTER, # 48 mL, 1 Refills, [facility] STORE 24665, 90, USE 1 SPRAY IN EACH NOSTRL 2 TIMES A DAY X 5 DAYS, AND THEN DAILY THEREAFTER, 156, cm, 04/04/22 7:36:00 EDT, [place]... Start Date: 04/30/22 Status: Ordered levothyroxine 0.05 mg oral tablet See Instructions, TAKE 1 TABLET BY MOUTH EVERY DAY, # 90 tablet, 1 Refills, [facility]ORE 36779, 156, cm, 02/07/22 11:31:00 EDT, Height Start Date: 02/19/22 Status: Ordered loratadine 10 mg oral tablet 10 mg, 1, tablet, By Mouth, Daily, # 30 tablet, Refills 11, Tot. Refills 11, Maintenance, 02/26/22 9:18:00 EDT, Route to Pharmacy Electronically, [facility]/pharmacy #[id number], Partial fill upon patient [...] 02/26/22 9:18:00 EDT, Route to Pharmacy Electronically, [facility]/pharmacy #2476, Partial fill upon patient [...] 9:18:00 EDT, Aerosol, Route to Pharmacy Electronically, [id number]... Start Date: 02/26/22 Status: Ordered Vitamin D3 [...] pack/packet, 0 Refills, Maintenance, 06/17/22 17:01:00 EDT, [facility]/pharmacy #2476, Partial fill upon patient [...] Team Personnel Name: Santi James MD Address: [address] [place] [address] Adult & Pediatric Medicine [address]
--- OUTSIDE RECORDS SUMMARY | 2024-07-15 15:43 | XMS_ITS | Continuity of Care Document ---
Author Organization [facility] Address [address] [place] [address]- Care Team Providers Care Payroll Benefits Clerk Name Role Phone Jacob DORAN, Santi Primary Care Physician [facility]): 10/28/23 - 11/27/23 [facility] [address] [place], [place] [address] Allergies, Adverse Reactions, Alerts Substance Reaction Severity Status morphine Active Percocet Active doxycycline Hives Active nitrofurantoin Pruritus Rash Active predniSONE Anaphylaxis Active benzonatate Speech impediment Active Lopid Muscle cramps Myalgia and myositis unspecified Active Biaxin Upset stomach Active Levaquin Hives Active Lipitor Myalgia unspecified Muscle cramps Active Topamax Skin rash Active Demerol Active tiZANidine Anaphylaxis Active Immunizations [...] (Td) 11/03/99 Given 1Admin Note: done @ [facility],form received 2Result Comment: [07/31/2015] [facility] 3Admin Note: done @ [facility] 4Admin Note: vis sheet given. 5Admin Note: work 6Admin Note: given at [facility] in [place] 7Admin Note: per pt, done at [facility] 8Admin Note: done @ [facility], form received 9Admin Note: given at work 10Admin Note: given in the fall 11Result Comment: [id number] 12Result Comment: [08/31/2018] [id number] 13Result Comment: [08/24/2015] given w/out incident 14Admin [...] tablet, 3 Refills, Maintenance, 01/17/23 12:44:00 EDT, [facility] 95559, 156.15, cm, 11/29/22 14:40:00 EST, Height, 79.5, [...] Acute 11/28/23 16:51:00 EST, 11/18/23 16:51:00 EST, [facility]/pharmacy #4560, Partial fill upon patient request if the prescription is for a schedule II opioid drug., 155, cm, 11/18/23... Start Date: 11/18/23 Stop Date: 11/28/23 Status: Ordered azelastine 137 mcg/inh (0.1%) nasal spray See Instructions, USE 1 SPRAY IN BOTH NOSTRILS 2 TIMES A DAY NEEDED FOR ALLERGIES, # 90 Unknown,1 Refills, Maintenance, 06/10/23 8:18:00 EDT, [facility] 47465, 90, USE 1 SPRAY IN BOTH NOSTRILS [...] Refills, Soft Stop, 11/06/23 9:46:00 EST, Tablet, [facility]/pharmacy #2476, Partial fill upon patient request if the prescription is for a schedule II opioid drug., 155, cm, 11/06/23 9:08:00 EST, Height, 83.7... Start Date: 11/06/23 Status: Ordered EpiPen 2-Tramaine 0.3 mg injectable kit = 0.3 mg, Intramuscular, Once, PRN Anaphylactic Reaction, may repeat if necessary, # 1 each, 11 Refills, Soft Stop, 03/14/23 15:31:00 EDT, [facility]/pharmacy #2476, Partial fill upon patient request if theprescription is for a schedule II opioid drug., 155... Start Date: 03/14/23 Status: Ordered fexofenadine 180 mg oral tablet 1 tablet = 180 mg, By Mouth, Daily, PRN for allergy symptoms, # 90 tablet, 4 Refills, Maintenance, 09/02/23 11:04:00 EDT, Tablet, [facility]/pharmacy #2476, Partial fill upon patient request if the prescription is for a schedule II opioid drug., 155, cm, ... Start Date: 09/02/23 Stop Date: 11/25/24 Status: Ordered levothyroxine 0.05 mg oral tablet 1 tablet, By Mouth, Daily, # 90 tablet, 3 Refills, Maintenance, 08/12/23 15:31:00 EDT, [facility]/pharmacy#2476, 155, cm, 08/12/23 15:09:00 EDT, Height, 83.9, kg, 03/13/23 4:46:00 EDT, Dry Weight Start Date: 08/12/23 Stop Date: 08/06/24 Status: Ordered montelukast 10 mg oral tablet 1, tablet, By Mouth, Daily, # 90 tablet, Refills 3, Maintenance, 11/23/23 8:40:00 EST, Route to Pharmacy Electronically, [facility] 30916, 155, cm, 11/18/23 16:29:00 EST, Height, 83.7, [...] 4 Refills, Maintenance, 03/28/23 13:04:00 EDT, [place]eros[place], [facility]/pharmacy #2476, replaced Proventil that is not available, 155, cm, 03/13/23 11:02:00 EDT, Height, 83.9, kg, 03/13/23 4:46:00 EDT... Start Date: 03/28/23 Stop Date: 08/25/23 Status: Ordered Zetia 10 mg oral tablet 1 tablet = 10 mg, By Mouth, Daily, # 30 tablet, 1 Refills, Maintenance, 10/28/23 10:28:00 EST, Tablet, [facility]/pharmacy #2476, Partial fill upon patient request if [...] Personnel Name: Justa HARRIS, Geni Orlando Position: [facility] Associate Professional Member Role: Primary Care Nurse Address: Address: [address] [place] [address]- Name: Talia Matute RN Position: [facility] RN Member Role: Primary Care Nurse Name: Santi James MD Position: [facility] Physician - Primary Care Member Role: PCP Address: Address: [address] [place] [address] Adult & [place] [address]- Care Team Related Persons Name: PITER BAILYE Address: home [address] [place] [address] Name: DELMIS ADAMS Address: [place] [address] Name: RUPERT PALMER Address: home [address] [place], [place] Name: DESIRAE CHAUDHARY Address: home [address] [place], [place]
--- OUTSIDE RECORDS SUMMARY | 2024-07-15 15:43 | XMS_ITS | Continuity of Care Document ---
Author Organization [facility] Address [address] [place] [address]- Care Team Providers Care Auto Damage Insurance Appraiser Name Role Phone Santi James MD Primary Care Physician [facility]23 - 04/12/23 [facility] [address] [place], [place] [address] Allergies, Adverse Reactions, Alerts [...] given at [facility] in [place] 7Admin Note: per pt, done at [facility] 8Admin Note: done @ [facility], form received 9Admin Note: given at work 10Admin Note: given in the fall 11Result Comment: [id number] 12Result Comment: [08/31/2018] [id number] 13Result Comment: [08/24/2015] given w/out incident 14Admin Note: per pt 15Admin Note: [facility] Medications acetaminophen 650 mg oral tablet, extended release 1 tablet, By Mouth, Every 8 hours, PRN NEEDED FOR PAIN, # 90 tablet, 3 Refills, Maintenance, 01/17/23 12:44:00 EDT, [facility], 156.15, cm, 11/29/22 14:40:00 EST, Height, 79.5, [...] each, 10 Refills, Maintenance, 11/25/22 15:18:00 EST, [place], [facility]/pharmacy #2476, replaces 0.15% dose, [...] 155... Start Date: 03/14/23 Status: Ordered ergocalciferol 94835 iu oral capsule 50,000 International_Units, 1, capsule, By Mouth, Every week, # 12 capsule, Refills 0, Tot. Refills0, Maintenance, 04/10/23 9:13:00 EDT, Route to Pharmacy Electronically, [facility] [...] tablet, 1 Refills, Maintenance, 03/01/23 14:21:00 EDT, [facility] STORE 94849, 156.15, cm, 11/29/22 14:40:00 EST, Height, 79.5, [...] 4 Refills, Maintenance, 03/28/23 13:04:00 EDT, [place], [facility]/pharmacy #5330, replaced Proventil that is not available, 155, [...] Personnel Name: Justa HARRIS, Geni Orlando Position: [facility] Associate Professional Member Role: Primary Care Nurse Address: Address: [address] [place] [address]- Name: Talia Mtaute RN Position: [facility] RN Member Role: Primary Care Nurse Name: Santi James MD Position: [facility] Physician - Primary Care Member Role: PCP Address: Address: [address] [place] [address] Adult [place] [address]- Care Team Related Persons Name: PITER BAILEY Address: home [address] [place] [address] Name: DELMIS ADAMS Address: home [place], [place] Name: RUPERT PALMER Address: home [address] [place], [place] Name: DESIRAE CHAUDHARY Address: home [address] [place], [place]
--- OUTSIDE RECORDS SUMMARY | 2024-07-15 15:43 | XMS_ITS | Continuity of Care Document ---
Author Organization [facility] Address [address] [place] [address]- Care Team Providers Care Accounts Receivable Associate Name Role Phone Santi James MD Primary Care Physician [place] [facility]07[place]22 - 02/14/22 [facility] [address] [place] [address]- Encounter Diagnosis Asthma(Discharge Diagnosis) - 02/07/22 Anxiety disorder(Discharge Diagnosis) - 02/07/22 IgA deficiency(Discharge Diagnosis) - 02/07/22 Obese class I(Discharge Diagnosis) - 02/07/22 GARCIA (obstructive sleep apnea)(Discharge Diagnosis) - 02/07/22 Attending Physician: Santi James MD Allergies, Adverse Reactions, Alerts Substance Reaction Severity Status nitrofurantoin Pruritus Rash Active morphine Active benzonatate Speech impediment Active Percocet Active Levaquin Hives Active doxycycline Hives Active Lopid Muscle cramps Myalgia and myositis [...] (Td) 11/03/99 Given 1Admin Note: done @ [facility],form received 2Result Comment: [07/31/2015] [facility] 3Admin Note: done @ [facility] 4Admin Note: vis sheet given. 5Admin Note: work 6Admin Note: given at [facility] in [place] 7Admin Note: per pt, done at [facility] 8Admin Note: done @ [facility], form received 9Admin Note: given at work 10Admin Note: given in the fall 11Result Comment: [id number] 12Result Comment: [08/31/2018] [id number] 13Result Comment: [08/24/2015] given w/out incident 14Admin Note: per pt 15Admin Note: [facility] Medications aspirin 81 mg oral tablet 1 tablet = 81 mg, By Mouth, Daily, # 30 tablet, 10 Refills, Maintenance, 12/09/19 10:24:00 EST, Tablet Start Date: 12/09/19 Stop Date: 11/03/20 Status: Ordered Augmentin 875 mg-125 mg oral tablet 1 tablet, By Mouth, Every 12 hours, for 10 days, with food or milk, # 20 tablet, 0 Refills, Acute 02/17/22 12:10:00 EDT, 02/07/22 12:10:00 EDT, Tablet, [facility]/pharmacy #1766, Partial fill upon patient request if the prescription is for a schedule II opio... Start Date: 02/07/22 Stop Date: 02/17/22 Status: Ordered azelastine nasal 0.15% spray 1 sprays, Nares, Both, 2 times a day, PRN for allergy symptoms, # 1 each, 4 Refills, Maintenance, 02/07/22 12:08:00 EDT, [place], [facility], Partial fill upon patient request if the prescription is for a schedule II opioid drug., 1 sprays Nares... Start Date: 02/07/22 Stop Date: 07/07/22 Status: Ordered cetirizine 10 mg oral tablet 1 tablet = 10 mg, By Mouth, Daily, # 90 tablet, 3 Refills, Maintenance, 03/13/21 8:26:00 EDT, Tablet, [facility] #[id number], 156, cm, 03/13/21 8:16:00 EDT, Height, 78.8, [...] 16 Gm,6 Refills, Maintenance, 11/06/21 10:21:00 EST, [place], [facility]/pharmacy #2476, Partial fill upon patientrequest if the prescription is for a schedule II op... Start Date: 11/06/21 Status: Ordered levothyroxine 0.05 mg oral tablet 1 tablet = 50 mcg, By Mouth, Daily, # 90 tablet, 3 Refills, Maintenance, 03/13/21 8:24:00 EDT, Tablet, [facility] #96397, 156, cm, 03/13/21 8:16:00 EDT, Height, 78.8, kg, 12/20/19 10:35:00 EST, Dry Weight Start Date: 03/13/21 Stop Date: 03/08/22 Status: Ordered montelukast 10 mg oral tablet See Instructions, TAKE 1 TABLET BY MOUTH EVERY DAY, # 90 tablet, Refills 1, Instructions Replace Required Details, Route to Pharmacy Electronically, [facility], 156, cm, 09/04/21 8:41:00 EDT, Height, 78.8, [...] each, Refills 4, Route to Pharmacy Electronically, [id number], [facility], 156, cm, 09/04/21 8:41:00 EDT, Height, 78.8, kg, 12/20/19 10:35:00 EST, Dry Weight Start Date: 10/08/21 Status: Ordered Symbicort 160mcg/4.5mcg Inhaler 2, puffs, Inhalation, 2 times a day, in the morning and the evening use with spacer chamber rinse mouth and throat after use, # 54 Gm, Refills 12, Tot. Refills 12, Maintenance, 09/04/21 9:38:00 EDT, Aerosol, Route to Pharmacy Electronically, [id number]... Start Date: 09/04/21 Status: Ordered Vitamin D3 1000 intl units [...] Effective Dates Health Status Clinical Service Informant Asthma Discharge Diagnosis 02/07/22 Anxiety disorder Discharge Diagnosis 02/07/22 IgA deficiency Discharge Diagnosis 02/07/22 Obese class I Discharge Diagnosis 02/07/22 GARCIA (obstructive sleep apnea) Discharge Diagnosis 02/07/22 Vital Signs Most recent to oldest [Reference Range]: 1 Height 156 cm (02/07/22 11:31 AM) Weight 77.7 kg (02/07/22 11:31 AM) Oxygen Saturation [94-100 %] 68 % *L* (02/07/22 11:31 AM) Pulse Rate [55-90 bpm] 68 bpm (02/07/22 11:31 AM) Body Mass Index [18.5-24.99] 31.93 *>HHI* (02/07/22 11:31 AM) Blood Pressure [90-138/55-84 mm Hg] 120/ 60mm Hg (02/07/22 11:31 AM) Mode of Delivery (Oxygen) Room air (02/07/22 11:31 AM) Blood pressure sites Arm, left (02/07/22 11:31 AM) Weight Obtained Via Standing scale (02/07/22 11:31 AM) Social History Social History Type Response Smoking Status Never smoker entered on: 10/12/14 Sex
--- OUTSIDE RECORDS SUMMARY | 2024-07-15 15:43 | XMS_ITS | Continuity of Care Document ---
Author Organization [facility] Address [address] [place] [address]- Care Team Providers Care Bench Inspector Name Role Phone Santi James MD Primary Care Physician [facility]): 02/27[facility]23 - 05/07/23 [facility] [address] [place], [place] [address] Attending Physician: Santi James MD Allergies, Adverse Reactions, Alerts Substance Reaction Severity Status doxycycline Hives Active morphine Active predniSONE Anaphylaxis Active benzonatate Speech impediment Active Percocet Active Lipitor Myalgia unspecified Muscle cramps Active nitrofurantoin Pruritus Rash Active Lopid Muscle cramps Myalgia and myositis [...] at [facility] in [place] 7Admin Note: per pt, done at [facility] 8Admin Note: done @ [facility], form received 9Admin Note: given at work 10Admin Note: given in the fall 11Result Comment: [id number] 12Result Comment: [08/31/2018] [id number] 13Result Comment: [08/24/2015] given w/out incident 14Admin Note: per pt 15Admin Note: [facility] Medications acetaminophen 650 mg oral tablet, extended release 1 tablet, By Mouth, Every 8 hours, PRN NEEDED FOR PAIN, # 90 tablet, 3 Refills, Maintenance, 01/17/23 12:44:00 EDT, [facility], 156.15, cm, 11/29/22 14:40:00 EST, Height, 79.5, [...] each, 10 Refills, Maintenance, 11/25/22 15:18:00 EST, [place], [facility]/pharmacy #2476, replaces 0.15% dose, 1 sprays Nares, [...] 155... Start Date: 03/14/23 Status: Ordered ergocalciferol 41417 iu oral capsule 50,000 International_Units, 1, capsule, By Mouth, Every week, # 12 capsule, Refills 0, Tot. Refills0, Maintenance, 04/10/23 9:13:00 EDT, Route to Pharmacy Electronically, [facility]/pharmacy #2476, Partialfill upon patient request if the [...] Refills, Maintenance, 03/01/23 14:21:00 EDT, [facility], 156.15, cm, 11/29/22 14:40:00 EST, Height, 79.5, [...] 4 Refills, Maintenance, 03/28/23 13:04:00 EDT, [place], [facility]/pharmacy #2476, replaced Proventil that is not available, [...] Personnel Name: Justa HARRIS, Geni Orlando Position: [facility] Associate Professional Member Role: Primary Care Nurse Address: Address: [address] [place] [address] [place] [address]- Name: Talia Matute RN Position: [facility] RN Member Role: Primary Care Nurse Name: Santi James MD Position: [facility] Physician - Primary Care Member Role: PCP Address: Address: [address] [place] [address] Adult & [place] [address]- Care Team Related Persons Name: PITER BAILEY Address: home [address] [place] [address] Name: DELMIS ADAMS Address: home [place], [place] Name: RUPERT PALMER Address: home [address] [place], [place] Name: DESIRAE CHAUDHARY Address: home [address] [place], [place]
--- OUTSIDE RECORDS SUMMARY | 2024-07-15 15:43 | XMS_ITS | Continuity of Care Document ---
Author Organization [facility] Address [address] [place] [address]- Care Team Providers Care Drilling Assistant Name Role Phone Santi James MD Primary Care Physician [facility]22 - 12/05/22 [facility] [address] [place], [place] [address] Allergies, Adverse Reactions, Alerts Substance [...] 6Admin Note: given at [facility] [place] 7Admin Note: per pt, done at [facility] 8Admin Note: done @ [facility], form received 9Admin Note: given at work 10Admin Note: given in the fall 11Result Comment: [id number] 12Result Comment: [08/31/2018] [id number] 13Result Comment: [08/24/2015] given w/out incident 14Admin Note: per pt 15Admin Note: [facility] Medications acetaminophen 650 mg oral tablet, extended release 1 tablet, By Mouth, Every 8 hours, PRN NEEDED FOR PAIN, # 90 tablet, 3 Refills, [facility], cm, 04/04/22 7:36:00 EDT, Height, 78.9, kg, 04/04/22 7:36:00 EDT, Dry Weight Start Date: 04/08/22 Status: Ordered Albuterol (Eqv-ProAir HFA) 90 mcg/inh inhalation aerosol 2 puffs, Inhalation, Every 6 hours, PRN Wheezing/Shortness of Breath, # 6.7 Gm, 11 Refills, Maintenance, 08/29/22 9:07:00 EDT, [facility]/pharmacy #2476, [...] each, 10 Refills, Maintenance, 11/25/22 15:18:00 EST, [place], [facility]/pharmacy #2476, replaces 0.15% dose, 1 sprays Nares, [...] 16 Gm, 11 Refills, 08/29/22 9:07:00 EDT, [facility]/pharmacy #[id number], USE 1 SPRAY IN EACH NOSTRL 2 TIMES A DAYX 5 DAYS, AND THEN DAILY THEREAFTER, 156.15, cm, 10... Start Date: 08/29/22 Status: Ordered levothyroxine 0.05 mg oral tablet See Instructions, TAKE 1 TABLET BY MOUTH EVERY DAY, # 90 tablet, 1 Refills, 09/01/22 19:54:00 EDT, [facility]/pharmacy #2476, 156.15, cm, 08/29/22 8:44:00 EDT, Height, 79.5, kg, 06/06/22 11:17:00 EDT, Dry Weight Start Date: 09/01/22 Status: Ordered loratadine 10 mg oral tablet 10 mg, 1, tablet, By Mouth, Daily, # 30 tablet, Refills 11, Tot. Refills 11, Maintenance, 08/29/22 9:07:00 EDT, [facility], [facility] each, 11 Refills, Maintenance, 11/28/2314:07:00 EST, [facility], Partial fill upon patient [...] 08/29/22 9:07:00 EDT, Route to Pharmacy Electronically, [facility]/pharmacy #0096, Partial fill upon patient requestif the prescription is for a schedule II opioid lauro... Start Date: 08/29/22 Status: Ordered Symbicort 160mcg/4.5mcg Inhaler 2, puffs, Inhalation, 2 times a day, in the morning and the evening use with spacer chamber rinse mouth and throat after use, # 1 each, Refills 5, Tot. Refills 5, Maintenance, 10/17/22 10:03:00 EST, Aerosol, Route to Pharmacy Electronically, [id number]... Start Date: 10/17/22 Status: Ordered Vitamin D3 [...] Personnel Name: Justa HARRIS, Geni Orlando Position: [facility] Associate Professional Member Role: Primary Care Nurse Address: Address: [address] [place] [address]- Name: Santi James MD Position: [facility] Primary Care Physician Member Role: PCP Address: Address: [address] [place] [address]- Care Team Related Persons Name: PITER BAILEY Address: home [address] [place] [address] Name: DELMIS ADAMS Address: home [address] [place], [place] Name: RUPERT PALMER Address: home [address] [place], [place] Name: DESIRAE CHAUDHARY Address: home [address] [place], [place]
--- OUTSIDE RECORDS SUMMARY | 2024-07-15 15:43 | XMS_ITS | Continuity of Care Document ---
Author Organization [facility] Address [address] [place] [address]- Care Team Providers Care Chiller Operator Name Role Phone Santi James MD Primary Care Physician [facility]): 06/20/22 - 07/20/22 [facility] [address] [place], [place] [address] Allergies, Adverse Reactions, Alerts Substance [...] 6Admin Note: given at [facility] [place] 7Admin Note: per pt, done at [facility] 8Admin Note: done @ [facility], form received 9Admin Note: given at work 10Admin Note: given in the fall 11Result Comment: [id number] 12Result Comment: [08/31/2018] [id number] 13Result Comment: [08/24/2015] given w/out incident 14Admin Note: per pt 15Admin Note: [facility] [employer] Medications acetaminophen 650 mg oral tablet, extended release 1 tablet, By Mouth, Every 8 hours, PRN NEEDED FOR PAIN, # 90 tablet, 3 Refills, [facility] 154[facility],156, cm, 04/04/22 7:36:00 EDT, Height, 78.9, kg, 04/04/22 7:36:00 EDT, Dry Weight Start Date: 04/08/22 Status: Ordered Albuterol (Eqv-ProAir HFA) 90 mcg/inh inhalation aerosol 2 puffs, Inhalation, Every 6 hours, PRN Wheezing/Shortness of Breath, # 6.7 Gm, 11 Refills, Maintenance, 02/26/22 9:18:00 EDT, [facility]/pharmacy #2476, Partial fill upon patient request [...] each, 4 Refills, Maintenance, 02/07/22 12:08:00 EDT, [place], [facility]/pharmacy #2476, Partial fill upon patient request if the prescription is for a schedule II opioid drug., 1 sprays Nares... Start Date: 02/07/22 Stop Date: 07/07/22 Status: Ordered cetirizine 10 mg oral tablet 1 tablet, By Mouth, Daily, # 90 tablet, 3 Refills, [facility] 156[facility], 156, cm, 03/18/22 8:26:00 EDT, Height Start [...] 0 Refills, Soft Stop, 06/20/22 13:59:00 EDT, [place],[facility]/pharmacy #5746, Partial fill upon patient request if the prescription is for a schedule II opioid drug., 155, cm, 06/06/22 11:17:00 EDT, Height, 79... Start Date: 06/20/22 Status: Ordered fluticasone 50 mcg/inh nasal spray See Instructions, USE 1 SPRAY IN EACH NOSTRL 2 TIMES A DAY X 5 DAYS, AND THEN DAILY THEREAFTER, # 48 mL, 1 Refills, [facility] 59275, 90, USE 1 SPRAY IN EACH NOSTRL 2 TIMES A DAY X 5 DAYS, AND THEN DAILY THEREAFTER, 156, cm, 04/04/22 7:36:00 EDT, [place]... Start Date: 04/30/22 Status: Ordered levothyroxine 0.05 mg oral tablet See Instructions, TAKE 1 TABLET BY MOUTH EVERY DAY, # 90 tablet, 1 Refills, [facility], 156, cm, 02/07/22 11:31:00 EDT, Height Start Date: 02/19/22 Status: Ordered loratadine 10 mg oral tablet 10 mg, 1, tablet, By Mouth, Daily, # 30 tablet, Refills 11, Tot. Refills 11, Maintenance, 02/26/22 9:18:00 EDT, Route to Pharmacy Electronically, [facility]/pharmacy #2476, Partial fill upon patient requestif [...] 02/26/22 9:18:00 EDT, Route to Pharmacy Electronically, [facility]/pharmacy #2476, Partial fill upon patient requestif [...] 9:18:00 EDT, Aerosol, Route to Pharmacy Electronically, [id number]... Start Date: 02/26/22 Status: Ordered Vitamin D3 [...] Team Personnel Name: Santi James MD Address: [address] [place] [address] Adult & Pediatric Medicine [address]
--- OUTSIDE RECORDS SUMMARY | 2024-07-15 15:43 | XMS_ITS | Continuity of Care Document ---
Author Organization [facility] Address [address] [place] [address]- Care Team Providers Care Postal Service Clerk Name Role Phone aJcob DORAN, Santi Primary Care Physician [facility]): 09/17/21 - 10/17/21 [facility] [address] [place], [place] [address] Allergies, Adverse Reactions, Alerts Substance [...] R ecorded SARS-CoV-2 (COVID-19) mRNA BNT-162b2 vac 2/8/21 Recorded SARS-CoV-2 (COVID-19) mRNA BNT-162b2 vac 11/13/20 [...] 11/03/99 Given 1Admin Note: done @ [facility],form received 2Result Comment: [07/31/2015] [facility] 3Admin Note: done @ [facility] 4Admin Note: vis sheet given. 5Admin Note: work 6Admin Note: given at [facility] [place] 7Admin Note: per pt, done at [facility] 8Admin Note: done @ [facility], form received 9Admin Note: given at work 10Admin Note: given in the fall 11Result Comment: [id number] 12Result Comment: [08/31/2018] [id number] 13Result Comment: [08/24/2015] given w/out incident 14Admin Note: per pt 15Admin Note: [facility] [employer] Medications acetaminophen 650 mg oral tablet, extended release 1 tablet = 650 mg, By Mouth, Every 8 hours, PRN Pain , Moderate, for 30 days, # 90 tablet, 7 Refills, Acute 10/24/21 12:47:00 EST, 02/26/21 12:47:00 EDT, ER Tablet, [facility] #[id number], 156, cm, 03/13/20 10:31:00 EDT, Height, 78.8, kg, ... Start Date: 02/26/21 Stop Date: 10/24/21 Status: Ordered aspirin 81 mg oral tablet [...] 3 Refills, Maintenance, 03/13/21 8:26:00 EDT, [facility], 156, cm, 03/13/21 8:16:00 EDT, Height, 78.8, [...] Refills, Soft Stop, 10/16/21 9:58:00 EST, Tablet, [facility]/pharmacy #1790, Partial fill upon patient request if the prescription is for a schedule II opioid drug., 156, cm, 09/04/21 8:41:00 EDT, Height, 78.8... Start Date: 10/16/21 Status: Ordered Flonase 50 mcg/inh nasal spray 1 sprays, Nares, Both, 2 times a day, in each nostril X 5 Days, and then daily thereafter, # 16 Gm,0 Refills, Maintenance, 08/02/21 11:22:00 EDT, [place], [facility] #03161, Partial fill upon patient request if the prescription is for a sched... Start Date: 08/02/21 Status: Ordered FLUoxetine 10 mg oral capsule 10 mg, 1, capsule, By Mouth, Daily, # 30 capsule, Refills 0, Tot. Refills 0, Maintenance, 09/20/21 14:58:00 EST, [facility] Partial fill upon patient request if the prescription is for a schedule II opioid dr... Start Date: 09/20/21 Stop Date: 10/20/21 Status: Ordered ipratropium nasal 21 mcg/inh spray 2 sprays, Nares, Both, 2 times a day, # 30 mL, 0 Refills, Maintenance, 07/25/20 16:52:00 EDT, [place], [facility]/pharmacy #2476, 2 sprays Nares, Both 2 times a day, 156, cm, 03/13/20 10:31:00 EDT, Height, 78.8, kg, 12/20/19 10:35:00 EST, Dry Weight Start Date: 07/25/20 Status: Ordered levothyroxine 0.05 mg oral tablet 1 tablet = 50 mcg, By Mouth, Daily, # 90 tablet, 3 Refills, Maintenance, 03/13/21 8:24:00 EDT, Tablet, [facility] #64043, 156, cm, 03/13/21 8:16:00 EDT, Height, 78.8, kg, 12/20/19 10:35:00 EST, Dry Weight Start Date: 03/13/21 Stop Date: 03/08/22 Status: Ordered montelukast 10 mg oral tablet See Instructions, TAKE 1 TABLET BY MOUTH DAILY, # 90 tablet, Refills 1, Instructions Replace Required Details, Route to Pharmacy Electronically, [facility] #[id number], 156, cm, 03/13/21 8:35:00EDT, Height, 78.8, kg, [...] each, Refills 4, Route to Pharmacy Electronically, [id number], [facility] 527[facility], 156, cm, 09/04/21 8:41:00 EDT, Height, 78.8, kg, 12/20/19 10:35:00 EST, Dry Weight Start Date: 10/08/21 Status: Ordered Symbicort 160mcg/4.5mcg Inhaler 2, puffs, Inhalation, 2 times a day, in the morning and the evening use with spacer chamber rinse mouth and throat after use, # 54 Gm, Refills 12, Tot. Refills 12, Maintenance, 09/04/21 9:38:00 EDT, Aerosol, Route to Pharmacy Electronically, [id number]... Start Date: 09/04/21 Status: Ordered Zithromax Z-Tramaine 250 mg oral tablet See Instructions, as directed on package labeling, # 1 pack/packet, 0 Refills, Maintenance, 10/11/21 17:06:00 EST, [facility]/pharmacy #7056, Partial fill upon patient request if the [...]
--- OUTSIDE RECORDS SUMMARY | 2024-07-15 15:43 | XMS_ITS | Continuity of Care Document ---
Author Organization [facility] Address [address] [place] [address]- Care Team Providers Care Wet Machine Operator Name Role Phone Jacob DORAN, Santi Primary Care Physician [facility]): 06/08/21 - 07/08/21 [facility] [address] [place], [place] [address] Allergies, Adverse Reactions, Alerts [...] Given 1Admin Note: done @ [facility], form received 2Admin Note: done @ [facility],form received 3Result Comment: [07/31/2015] [facility] 4Admin Note: done @ [facility] 5Admin Note: vis sheet given. 6Admin Note: work 7Admin Note: given at [facility] in [place] 8Admin Note: per pt, done at [facility] 9Admin Note: given at work 10Admin Note: given in the fall 11Result Comment: [id number] 12Result Comment: [08/31/2018] [id number] 13Result Comment: [08/24/2015] given w/out incident 14Admin Note: per pt 15Admin Note: [facility] Medications acetaminophen 650 mg oral tablet, extended release 1 tablet = 650 mg, By Mouth, Every 8 hours, PRN Pain , Moderate, for 30 days, # 90 tablet, 7 Refills, Acute 10/24/21 12:47:00 EST, 02/26/21 12:47:00 EDT, ER Tablet, [facility] #59813, 156, cm, 03/13/20 10:31:00 EDT, Height, 78.8, kg, 2... Start Date: 02/26/21 Stop Date: 10/24/21 Status: Ordered albuterol 0.083% inhalation solution 3 mL = 2.5 mg, Inhalation, Every 6 hours, PRN for wheezing, Dx: asthma, # 100 each, 4 Refills, Maintenance, 12/01/19 12:54:00 EST, Solution, [facility]/pharmacy #2476, 156, cm, 12/01/19 12:40:00 EST, Height, 79.6, kg, 03/10/19 14:10:00 EDT, Dry Weight Start Date: 12/01/19 Stop Date: 04/29/20 Status: Ordered albuterol CFC free 90 mcg/inh inhalation aerosol 2, puffs, Inhalation, Every 4 hours, PRN, # 1 each, Refills 3, Tot. Refills 3, Maintenance, 03/13/21 8:25:00 EDT, Aerosol, Route to Pharmacy Electronically, [id number], [facility] #85706, 156, cm, 03/13/21 8:16:00 E... Start Date: [...] 3 Refills, Maintenance, 03/13/21 8:26:00 EDT, Tablet, [facility] #84894, 156, cm, 03/13/21 8:16:00 EDT, Height, 78.8, [...] mL, 0 Refills, Maintenance, 07/25/20 16:52:00 EDT, [place], [facility]/pharmacy #3296, 2 sprays Nares, Both 2 times a day, 156, cm, 03/13/20 10:31:00 EDT, Height, 78.8, kg, 12/20/19 10:35:00 EST, Dry Weight Start Date: 07/25/20 Status: Ordered levothyroxine 0.05 mg oral tablet 1 tablet = 50 mcg, By Mouth, Daily, # 90 tablet, 3 Refills, Maintenance, 03/13/21 8:24:00 EDT, Tablet, [facility] #19653, 156, cm, 03/13/21 8:16:00 EDT, Height, 78.8, kg, 12/20/19 10:35:00 EST, Dry Weight Start Date: 03/13/21 Stop Date: 03/08/22 Status: Ordered montelukast 10 mg oral tablet See Instructions, TAKE 1 TABLET BY MOUTH DAILY, # 90 tablet, Refills 1, Instructions Replace Required Details, Route to Pharmacy Electronically, [facility] #[id number], 156, cm, 03/13/21 8:35:00EDT, Height, 78.8, kg, [...]
--- OUTSIDE RECORDS SUMMARY | 2024-07-15 15:43 | XMS_ITS | Continuity of Care Document ---
Author Organization [facility] Address [address] [place] [address]- Care Team Providers Care Container Finisher Name Role Phone Jacob DORAN, Santi Primary Care Physician [facility]): 04/01/24 - 05/01/24 [facility] [address] [place], [place] [address] Allergies, Adverse Reactions, Alerts Substance Reaction Severity Status doxycycline Hives Active nitrofurantoin Pruritus Rash Active morphine Active Percocet Active predniSONE Anaphylaxis Active benzonatate Speech impediment [...] Note: given at [facility] in [place] 7Admin Note: per pt, done at [facility] 8Admin Note: done @ [facility], form received 9Admin Note: given at work 10Admin Note: given in the fall 11Result Comment: [id number] 12Result Comment: [08/31/2018] [id number] 13Result Comment: [08/24/2015] given w/out incident 14Admin [...] tablet, 3 Refills, Maintenance, 01/17/23 12:44:00 EDT, [facility] 522[facility], 156.15, cm, 11/29/22 14:40:00 EST, Height, 79.5, [...] 90 Unknown,1 Refills, Maintenance, 06/10/23 8:18:00 EDT, [facility] 06[facility], 90, USE 1 SPRAY IN BOTH NOSTRILS [...] 0 Refills, Maintenance, 03/10/24 12:10:00 EDT, Tablet, [facility]/pharmacy #2960, Partial fill upon patient request if the prescription is for a schedule... Start Date: 03/10/24 Status: Ordered EpiPen 2-Tramaine 0.3 mg injectable kit = 0.3 mg, Intramuscular, Once, PRN Anaphylactic Reaction, may repeat if necessary, # 1 each, 11 Refills, Soft Stop, 03/14/23 15:31:00 EDT, [facility]/pharmacy #2476, Partial fill upon patient request if theprescription is for a schedule II opioid drug., 155... Start Date: 03/14/23 Status: Ordered fexofenadine 180 mg oral tablet 1 tablet = 180 mg, By Mouth, Daily, PRN for allergy symptoms, # 90 tablet, 4 Refills, Maintenance, 09/02/23 11:04:00 EDT, Tablet, [facility]/pharmacy #2476, Partial fill upon patient request if the prescription is for a schedule II opioid drug., 155, cm, ... Start Date: 09/02/23 Stop Date: 11/25/24 Status: Ordered ibuprofen 800 mg oral tablet 1, tablet, By Mouth, 3 times a day, X30 DAYS, STOP ASPIRIN WHILE TAKING THIS., # 90 tablet, Refills1, Maintenance, 12/04/23 7:25:00 EST, Route to Pharmacy Electronically, [facility] STORE 13186, 155, cm, 11/18/23 16:29:00 EST, Height, 83.7, kg, 11/06/23 9:0... Start Date: 12/04/23 Status: Ordered ibuprofen 800 mg oral tablet 1, tablet, By Mouth, 3 times a day, PRN, X30 DAYS, STOP ASPIRIN WHILE TAKING THIS. Take with food and/or milk, # 90 tablet, Refills 2, Tot. Refills 2, Maintenance, Pain , Moderate, 04/05/24 15:20:00 EDT, Route to Pharmacy Electronically, [facility]/pharmacy... Start Date: 04/05/24 Stop Date: 07/04/24 Status: Ordered levothyroxine 0.05 mg oral tablet 1 tablet, By Mouth, Daily, # 90 tablet, 3 Refills, Maintenance, 08/12/23 15:31:00 EDT, [facility]/pharmacy#2476, 155, cm, 08/12/23 15:09:00 EDT, Height, 83.9, kg, 03/13/23 4:46:00 EDT, Dry Weight Start Date: 08/12/23 Stop Date: 08/06/24 Status: Ordered montelukast 10 mg oral tablet 1, tablet, By Mouth, Daily, # 90 tablet, Refills 3, Maintenance, 11/23/23 8:40:00 EST, Route to Pharmacy Electronically, [facility] 24463, 155, cm, 11/18/23 16:29:00 EST, Height, 83.7, [...] 4 Refills, Maintenance, 03/28/23 13:04:00 EDT, Aerosol, [facility]/pharmacy #2476, replaced Proventil that is not available, 155, cm, 03/13/23 11:02:00 EDT, Height, 83.9, kg, 03/13/23 4:46:00 EDT... Start Date: 03/28/23 Stop Date: 08/25/23 Status: Ordered Vitamin D3 1000 intl units oral tablet 1 tablet = 25 mcg, By Mouth, Daily, # 90 tablet, 2 Refills, Maintenance, 01/27/24 14:50:00 EDT, Tablet, [facility]/pharmacy #2476, may use OTC formulation, [...] Personnel Name: Justa HARRIS, Geni Orlando Position: [facility] Associate Professional Member Role: Primary Care Nurse Name: Talia Matute RN Position: [facility] RN Member Role: Primary Care Nurse Name: Darshan Benz RN Position: [facility] Outreach Member Role: Primary Care Nurse Name: Santi James MD Position: [facility] Physician - Primary Care Member Role: PCP Address: Address: [address] [place] [address] Adult [place] [address]- Care Team Related Persons Name: PITER BAILEY Address: home [address] [place] [address] Name: DELMIS ADAMS Address: [place] [address] Name: RUPERT PALMER Address: home [address] [place] [address] Name: DESIRAE CHAUDHARY Address: home [address] [place] [address]
--- OUTSIDE RECORDS SUMMARY | 2024-07-15 15:43 | XMS_ITS | Continuity of Care Document ---
Author Organization [facility] Address [address] [place] [address]- Care Team Providers Care Auto Bumper Mechanic Name Role Phone Santi James MD Primary Care Physician Encounter [facility] Date(s): 01/04/21 - 02/03/21 [facility] [address] [place], [place] [address] Allergies, Adverse Reactions, Alerts Substance Reaction Severity Status doxycycline Hives Active nitrofurantoin Pruritus Rash Active morphine Active benzonatate Speech impediment Active Zithromax gi upset Active Lopid Muscle cramps Myalgia and myositis unspecified Active Percocet Active Biaxin Upset stomach Active Augmentin 1 hives Active Levaquin Hives Active Bactrim DS [...] 5 08/31/18 Given pneumococcal 23-valent vaccine 6 10/22/15 Given influenza virus vaccine, inactivated 07/23/17 Nitin [...] [facility], [facility] 4Result Comment: [id number] 5Result Comment: [08/31/2018] [id number] 6Result Comment: [08/24/2015] given w/out incident 7Admin Note: done @ [facility],form received 8Result Comment: [07/31/2015] [facility] 9Admin Note: done @ [facility] 10Admin Note: vis sheet given. 11Admin Note: work 12Admin Note: given at [facility] in [place] 13Admin Note: per pt, done at [facility] 14Admin Note: per pt 15Admin Note: [facility] Medications albuterol 0.083% inhalation solution 3 mL = 2.5 mg, Inhalation, Every 6 hours, PRN for wheezing, Dx: asthma, # 100 each, 4 Refills, Maintenance, 12/01/19 12:54:00 EST, Solution, [facility]/pharmacy #2476, 156, cm, 12/01/19 12:40:00 EST, Height, 79.6, kg, 03/10/19 14:10:00 EDT, Dry Weight Start Date: 12/01/19 Stop Date: 04/29/20 Status: Ordered albuterol CFC free 90 mcg/inh inhalation aerosol 2, puffs, Inhalation, Every 4 hours, PRN, # 9 Gm, Refills 0, Tot. Refills 0, Maintenance, 10/28/17 14:12:34, Aerosol, Route to Pharmacy Electronically, [id number], [facility]/pharmacy #1972, Compound Start Date: 10/28/17 Status: [...] 5 Refills, Maintenance, 10/10/20 12:10:00 EST, Tablet, [facility]/pharmacy #2476, 156, cm, 03/13/20 10:31:00 EDT, [...] 10/05/20 15:45:00 EST, Route to Pharmacy Electronically, [facility] 70290, 156, cm, 03/13/20 10:31:00 EDT, Height, 78.8, kg, 12/20/19 10:35:00 EST, Dry Weight Start Date: 10/05/20 Status: Ordered ipratropium nasal 21 mcg/inh spray 2 sprays, Nares, Both, 2 times a day, # 30 mL, 0 Refills, Maintenance, 07/25/20 16:52:00 EDT, [place], [facility]/pharmacy #2476, 2 sprays Nares, Both 2 times a day, 156, cm, 03/13/20 10:31:00 EDT, Height, 78.8, kg, 12/20/19 10:35:00 EST, Dry Weight Start Date: 07/25/20 Status: Ordered levothyroxine 0.05 mg oral tablet 1 tablet = 50 mcg, By Mouth, Daily, # 90 tablet, 3 Refills, Maintenance, 03/13/20 11:08:00 EDT, Tablet, [facility]/pharmacy #2476, 156, cm, 03/13/20 10:31:00 EDT, Height, 78.8, kg, 12/20/19 10:35:00 EST, Dry Weight Start Date: 03/13/20 Stop Date: 03/08/21 Status: Ordered montelukast 10 mg oral tablet 1, tablet, By Mouth, Daily, # 90 tablet, Refills 2, Tot. Refills 0, Maintenance, 10/05/20 15:45:00 EST, Route to Pharmacy Electronically, [facility]ORE 76533, 156, cm, 03/13/20 10:31:00 EDT, Height, 78.8, [...] each, 0 Refills, Maintenance, 09/14/20 8:47:00 EST, [facility]/pharmacy #2476, 1 puffs Inhalation 2 times [...]
--- OUTSIDE RECORDS SUMMARY | 2024-07-15 15:44 | XMS_ITS | Continuity of Care Document ---
Author Organization [facility] Address [address] [place] [address]- Care Team Providers Care Rail Car Repairman Name Role Phone Santi James MD Primary Care Physician [facility] Date(s): 05/27/24 - 06/26/24 [facility] [address] [place] [address]- Allergies, Adverse Reactions, Alerts Substance Reaction Severity [...] at [facility] [place] 7Admin Note: per pt, done at [facility] 8Admin Note: done @ [facility], form received 9Admin Note: given at work 10Admin Note: given in the fall 11Result Comment: [id number] 12Result Comment: [08/31/2018] [id number] 13Result Comment: [08/24/2015] given w/out incident 14Admin [...] tablet, 3 Refills, Maintenance, 01/17/23 12:44:00 EDT, [facility] ST[facility] 62294, 156.15, cm, 11/29/22 14:40:00 EST, Height, 79.5, [...] 90 Unknown,1 Refills, Maintenance, 06/10/23 8:18:00 EDT, [facility] ST[facility] 57513, 90, USE 1 SPRAY IN BOTH NOSTRILS [...] 0 Refills, Maintenance, 05/20/24 13:48:00 EDT, Tablet, [facility]/pharmacy #1813, Partial fill upon patient request if the prescription is for a schedule... Start Date: 05/20/24 Status: Ordered EpiPen 2-Tramaine 0.3 mg injectable kit = 0.3 mg, Intramuscular, Once, PRN Anaphylactic Reaction, may repeat if necessary, # 1 each, 11 Refills, Soft Stop, 03/14/23 15:31:00 EDT, [facility]/pharmacy #2476, Partial fill upon [...] Replace Required Details, [facility], 155, cm, 05/24/24 13:16:00 EDT, Height... Start [...] EST, Route to Pharmacy Electronically, [facility], 155, cm, 11/18/23 16:29:00 EST, Height, 83.7, [...] team information Care Team Personnel Name: Justa PLASTIC ROLLER, Geni Orlando Position: [facility] Associate Professional Member Role: Primary Care Nurse Name: Talia Matute RN Position: [facility] RN Member Role: Primary Care Nurse Name: Darshan Benz RN Position: [facility] Outreach Member Role: Primary Care Nurse Name: Santi aJmes MD Position: [facility] Physician - Primary Care Member Role: PCP Address: Address: [address] [place] [address] Adult [facility] [place] [address]- Care Team Related Persons Name: PITER BAILEY Address: home [address] [place] [address] Name: DELMIS ADAMS Address: [place] [address] Name: RUPERT PALMER Address: home [address] [place] [address] Name: DESIRAE CHAUDHARY Address: home [address] [place], [place]
--- OUTSIDE RECORDS SUMMARY | 2024-07-15 15:44 | XMS_ITS | Continuity of Care Document ---
Author Organization [facility] Address [address] [place] [address]- Care Team Providers Care Digestion Operator Name Role Phone Jacob DORAN, Santi Primary Care Physician [facility] Date[facility]s): 03/11/22 - 04/10/22 [facility] [address] [place], [place] [address] Allergies, Adverse Reactions, Alerts Substance [...] (Td) 11/03/99 Given 1Admin Note: done @ [facility],form received 2Result Comment: [07/31/2015] [facility] 3Admin Note: done @ [facility] 4Admin Note: vis sheet given. 5Admin Note: work 6Admin Note: given at [facility] [place] 7Admin Note: per pt, done at [facility] 8Admin Note: done @ [facility], form received 9Admin Note: given at work 10Admin Note: given in the fall 11Result Comment: [id number] 12Result Comment: [08/31/2018] [id number] 13Result Comment: [08/24/2015] given w/out incident 14Admin Note: per pt 15Admin Note: [facility] Medications acetaminophen 650 mg oral tablet, extended release 1 tablet, By Mouth, Every 8 hours, PRN NEEDED FOR PAIN, # 90 tablet, 3 Refills, [facility] STORE 25213,156, cm, 04/04/22 7:36:00 EDT, Height, 78.9, kg, 04/04/22 7:36:00 EDT, Dry Weight Start Date: 04/08/22 Status: Ordered Albuterol (Eqv-ProAir HFA) 90 mcg/inh inhalation aerosol 2 puffs, Inhalation, Every 6 hours, PRN Wheezing/Shortness of Breath, # 6.7 Gm, 11 Refills, Maintenance, 02/26/22 9:18:00 EDT, [facility]/pharmacy #2476, Partial [...] each, 4 Refills, Maintenance, 02/07/22 12:08:00 EDT, [place], [facility]/pharmacy #2476, Partial fill upon patient request if the prescription is for a schedule II opioid drug., 1 sprays Nares... Start Date: 02/07/22 Stop Date: 07/07/22 Status: Ordered cetirizine 10 mg oral tablet 1 tablet, By Mouth, Daily, # 90 tablet, 3 Refills, [facility] STORE 94423, 156, cm, 03/18/22 8:26:00 EDT, Height Start [...] Refills, Soft Stop, 04/08/22 13:39:00 EDT, Tablet,[facility]/pharmacy #2476, Partial fill upon patient request if the prescription is for a schedule II opioid drug., 156, cm, 04/04/22 7:36:00 EDT, Height, 78.... Start Date: 04/08/22 Status: Ordered Flonase 50 mcg/inh nasal spray 1 sprays, Nares, Both, 2 times a day, in each nostril X 5 Days, and then daily thereafter, # 16 Gm,6 Refills, Maintenance, 11/06/21 10:21:00 EST, [place], [facility]/pharmacy #2476, Partial fill upon patientrequest if the prescription is for a schedule II op... Start Date: 11/06/21 Status: Ordered levothyroxine 0.05 mg oral tablet See Instructions, TAKE 1 TABLET BY MOUTH EVERY DAY, # 90 tablet, 1 Refills, [facility] STORE 99670, 156, cm, 02/07/22 11:31:00 EDT, Height Start Date: 02/19/22 Status: Ordered loratadine 10 mg oral tablet 10 mg, 1, tablet, By Mouth, Daily, # 30 tablet, Refills 11, Tot. Refills 11, Maintenance, 02/26/22 9:18:00 EDT, Route to Pharmacy Electronically, [facility]/pharmacy #2476, Partial fill upon patient requestif the [...] 9:18:00 EDT, Route to Pharmacy Electronically, [facility]/pharmacy #2476, Partial fill upon patient requestif the prescription is for a schedule II opioid lauro... Start Date: 02/26/22 Status: Ordered Symbicort 160mcg/4.5mcg Inhaler 2, puffs, Inhalation, 2 times a day, in the morning and the evening use with spacer chamber rinse mouth and throat after use, # 54 Gm, Refills 12, Tot. Refills 12, Maintenance, 02/26/22 9:18:00 EDT, Aerosol, Route to Pharmacy Electronically, [id number]... Start Date: 02/26/22 Status: Ordered Vitamin D3 [...] Active Obese class I(Confirmed) Active Obesity(Confirmed) Active GARCAI (obstructive sleep apnea)(Confirmed) 03/16/10 Active Recurrent sinusitis(Confirmed) Active Repair of hernia of abdomina l wall(Confirmed) Active Social History Social History Type Response Smoking Status Never smoker entered on: 10/12/14 Sex
--- OUTSIDE RECORDS SUMMARY | 2024-07-15 15:44 | XMS_ITS | Continuity of Care Document ---
Author Organization [facility] Address [address] [place] [address]- Care Team Providers Care Trial Consultant Name Role Phone Santi James MD Primary Care Physician Encounter [facility] Date(s): 10/05/20 - 11/04/20 [facility] [address] [place], [place] [address] Allergies, Adverse Reactions, Alerts Substance [...] in the fall 3Admin Note: done @ [facility], form received 4Result Comment: [id number] 5Result Comment: [08/31/2018] [id number] 6Result Comment: [08/24/2015] given w/out incident 7Admin Note: done @ [facility],form received 8Result Comment: [07/31/2015] [facility] 9Admin Note: done @ [facility] 10Admin Note: vis sheet given. 11Admin Note: work 12Admin Note: given at [facility] [place] 13Admin Note: per pt, done at [facility] 14Admin Note: per pt 15Admin Note: [facility] Medications acetaminophen 650 mg oral tablet, extended release 1 tablet = 650 mg, By Mouth, Every 8 hours, PRN Pain , Moderate, for 30 days, # 90 tablet, 7 Refills, Acute 11/08/20 11:12:00 EST, 03/13/20 11:12:00 EDT, ER Tablet, [facility]/pharmacy #2476, 156, cm, 03/13/20 10:31:00 EDT, Height, 78.8, kg, 12/20/19 10:35:0... Start Date: 03/13/20 Stop Date: 11/08/20 Status: Ordered albuterol 0.083% inhalation solution 3 mL = 2.5 mg, Inhalation, Every 6 hours, PRN for wheezing, Dx: asthma, # 100 each, 4 Refills, Maintenance, 12/01/19 12:54:00 EST, Solution, [facility]/pharmacy #2476, 156, cm, 12/01/19 12:40:00 EST, Height, 79.6, kg, 03/10/19 14:10:00 EDT, Dry Weight Start Date: 12/01/19 Stop Date: 04/29/20 Status: Ordered albuterol CFC free 90 mcg/inh inhalation aerosol 2, puffs, Inhalation, Every 4 hours, PRN, # 9 Gm, Refills 0, Tot. Refills 0, Maintenance, 10/28/17 14:12:34, Aerosol, Route to Pharmacy Electronically, [id number], [facility]/pharmacy #1972, Compound Start Date: 10/28/17 Status: [...] 5 Refills, Maintenance, 10/10/20 12:10:00 EST, Tablet, [facility]/pharmacy #2476, 156, cm, 03/13/20 10:31:00 EDT, [...] 10/05/20 15:45:00 EST, Route to Pharmacy Electronically, [facility] STORE 57403, 156, cm, 03/13/20 10:31:00 EDT, Height, 78.8, kg, 12/20/19 10:35:00 EST, Dry Weight Start Date: 10/05/20 Status: Ordered ipratropium nasal 21 mcg/inh spray 2 sprays, Nares, Both, 2 times a day, # 30 mL, 0 Refills, Maintenance, 07/25/20 16:52:00 EDT, [place], [facility]/pharmacy #2476, 2 sprays Nares, Both 2 times a day, 156, cm, 03/13/20 10:31:00 EDT, Height, 78.8, kg, 12/20/19 10:35:00 EST, Dry Weight Start Date: 07/25/20 Status: Ordered levothyroxine 0.05 mg oral tablet 1 tablet = 50 mcg, By Mouth, Daily, # 90 tablet, 3 Refills, Maintenance, 03/13/20 11:08:00 EDT, Tablet, [facility], cm, 03/13/20 10:31:00 EDT, Height, 78.8, kg, 12/20/19 10:35:00 EST, Dry Weight Start Date: 03/13/20 Stop Date: 03/08/21 Status: Ordered montelukast 10 mg oral tablet 1, tablet, By Mouth, Daily, # 90 tablet, Refills 2, Tot. Refills 0, Maintenance, 10/05/20 15:45:00 EST, Route to Pharmacy Electronically, [facility] STORE 45800, 156, cm, 03/13/20 10:31:00 EDT, Height, 78.8, [...] Refills, Soft Stop, 09/14/20 8:46:00 EST, Tablet, [facility]pharmacy #2476, 156,cm, 03/13/20 10:31:00 EDT, Height, 78.8, [...]
--- OUTSIDE RECORDS SUMMARY | 2024-07-15 15:44 | XMS_ITS | Continuity of Care Document ---
Author Organization [facility] Address [address] [place] [address]- Care Team Providers Care Code Enforcement Officer Name Role Phone Jacob DORAN, Santi Primary Care Physician [facility] Date(s): 10/20/23 - 11/19/23 [facility] [address] [place], [place] [address] Allergies, Adverse Reactions, [...] influenza virus vaccine, inactivated 3 07/01/14 Gi critsel influenza virus vaccine, inactivated 4 07/02/12 Gi [...] 11/03/99 Given 1Admin Note: done @ [facility],form received 2Result Comment: [07/31/2015] [facility] 3Admin Note: [facility] 4Admin Note: vis sheet given. 5Admin Note: work 6Admin Note: given at [facility] in [place] 7Admin Note: per pt, done at [facility] 8Admin Note: done @ [facility], form received 9Admin Note: given at work 10Admin Note: given in the fall 11Result Comment: [id number] 12Result Comment: [08/31/2018] [id number] 13Result Comment: [08/24/2015] given w/out incident 14Admin [...] tablet, 3 Refills, Maintenance, 01/17/23 12:44:00 EDT, [facility] 04905, 156.15, cm, 11/29/22 14:40:00 EST, Height, 79.5, [...] Acute 11/28/23 16:51:00 EST, 11/18/23 16:51:00 EST, [facility]/pharmacy #1187, Partial fill upon patient request if the prescription is for a schedule II opioid drug., 155, cm, 11/18/23... Start Date: 11/18/23 Stop Date: 11/28/23 Status: Ordered azelastine 137 mcg/inh (0.1%) nasal spray See Instructions, USE 1 SPRAY IN BOTH NOSTRILS 2 TIMES A DAY NEEDED FOR ALLERGIES, # 90 Unknown,1 Refills, Maintenance, 06/10/23 8:18:00 EDT, [facility] 08169, 90, USE 1 SPRAY IN BOTH NOSTRILS [...] Refills, Soft Stop, 11/06/23 9:46:00 EST, Tablet, [facility]/pharmacy #2476, Partial fill upon patient request if the prescription is for a schedule II opioid drug., 155, cm, 11/06/23 9:08:00 EST, Height, 83.7... Start Date: 11/06/23 Status: Ordered EpiPen 2-Tramaine 0.3 mg injectable kit = 0.3 mg, Intramuscular, Once, PRN Anaphylactic Reaction, may repeat if necessary, # 1 each, 11 Refills, Soft Stop, 03/14/23 15:31:00 EDT, [facility]/pharmacy #2476, Partial fill upon patient request if theprescription is for a schedule II opioid drug., 155... Start Date: 03/14/23 Status: Ordered fexofenadine 180 mg oral tablet 1 tablet = 180 mg, By Mouth, Daily, PRN for allergy symptoms, # 90 tablet, 4 Refills, Maintenance, 09/02/23 11:04:00 EDT, Tablet, [facility]/pharmacy #2476, Partial fill upon patient request [...] Team Personnel Name: Geni Marr NP Position: [facility] Associate Professional Member Role: Primary Care Nurse Address: Address: [address] [facility] [place] [address]- Name: Talia Matute RN Position: [facility] RN Member Role: Primary Care Nurse Name: Santi James MD Position: [facility] Physician - Primary Care Member Role: PCP Address: Address: [address] [place] [address] Adult & [place] [address]- Care Team Related Persons Name: PITER BAILEY Address: home [address] [place] [address] Name: DELMIS ADAMS Address: [place] [address] Name: RUPERT PALMER Address: home [address] [place], [place] Name: DESIRAE CHAUDHARY Address: home [address] [place], [place]
--- OUTSIDE RECORDS SUMMARY | 2024-07-15 15:44 | XMS_ITS | Continuity of Care Document ---
Author Organization [facility] Address [address] [place] [address]- Care Team Providers Care Jewelry Store Manager Name Role Phone Santi James MD Primary Care Physician [facility] Date[facility]s): 07/16/23 - 08/15/23 [facility] [address] [place], [place] [address] Allergies, Adverse Reactions, Alerts Substance Reaction Severity Status morphine Active Percocet Active Lipitor Myalgia unspecified Muscle cramps Active doxycycline Hives Active nitrofurantoin Pruritus Rash Active predniSONE Anaphylaxis Active benzonatate Speech impediment Active Lopid Muscle cramps Myalgia and myositis unspecified Active Biaxin Upset stomach Active Topamax Skin rash Active Demerol Active tiZANidine Anaphylaxis Active Levaquin Hives Active Immunizations Given and [...] 6Admin Note: given at [facility] [place] 7Admin Note: per pt, done at [facility] 8Admin Note: done @ [facility], form received 9Admin Note: given at work 10Admin Note: given in the fall 11Result Comment: [id number] 12Result Comment: [08/31/2018] [id number] 13Result Comment: [08/24/2015] given w/out incident 14Admin [...] tablet, 3 Refills, Maintenance, 01/17/23 12:44:00 EDT, [facility] STORE 68133, 156.15, cm, 11/29/22 14:40:00 EST, Height, 79.5, [...] 90 Unknown,1 Refills, Maintenance, 06/10/23 8:18:00 EDT, [facility] STORE 91029, 90, USE 1 SPRAY IN BOTH NOSTRILS 2 TIMES A DAY NEEDED FOR ALLERGIES, 155, cm, ... Start Date: 06/10/23 Status: Ordered CeleBREX 100 mg oral capsule 1 capsule = 100 mg, By Mouth, 2 times a day, PRN for pain, # 60 capsule, 4 Refills, Maintenance, 08/12/23 15:29:00 EDT, [place], [facility]/pharmacy #4846, replaces ibuprofen, 155, cm, 08/12/23 15:09:00 EDT, [...] 11 Refills, Soft Stop, 03/14/23 15:31:00 EDT, [facility]/pharmacy #2476, Partial fill upon patient request if theprescription is for a schedule II opioid drug., 155... Start Date: 03/14/23 Status: Ordered ergocalciferol 10214 iu oral capsule 50,000 International_Units, 1, capsule, By Mouth, Every week, # 12 capsule, Refills 0, Tot. Refills0, Maintenance, 06/12/23 7:24:00 EDT, Route to Pharmacy Electronically, [facility]/pharmacy #2476, Partialfill upon patient request if [...] tablet, 3 Refills, Maintenance, 08/12/23 15:31:00 EDT, [facility]/pharmacy#2476, 155, cm, 08/12/23 15:09:00 EDT, Height, 83.9, [...] Name: Justa HARRIS, Geni Orlando Position: [facility] Associate Professional Member Role: Primary Care Nurse Address: Address: [address] [place] [address] [address]- Name: Juju QIU, Talia Position: [facility] RN Member Role: Primary Care Nurse Name: Santi James MD Position: [facility] Physician - Primary Care Member Role: PCP Address: Address: [address] [place] [address] Adult [place] [address]- Care Team Related Persons Name: PITER BAILEY Address: home [address] [place] [address] Name: DELMIS ADAMS Address: [place] [address] Name: RUPERT PALMER Address: home [address] [place] [address] Name: DESIRAE CHAUDHARY Address: home [address] [place], [place]
--- OUTSIDE RECORDS SUMMARY | 2024-07-15 15:44 | XMS_ITS | Continuity of Care Document ---
Author Organization [facility] Address [address] [place] [address]- Care Team Providers Care Customer Service Specialist Name Role Phone Jacob DORAN, Santi Primary Care Physician [facility]): 02/20/22 - 03/22/22 [facility] [address] [place], [place] [address] Allergies, Adverse Reactions, Alerts Substance [...] 5Admin Note: work 6Admin Note: given at [facility] 7Admin Note: per pt, done at [facility] 8Admin Note: done @ [facility], form received 9Admin Note: given at work 10Admin Note: given in the fall 11Result Comment: [id number] 12Result Comment: [08/31/2018] [id number] 13Result Comment: [08/24/2015] given w/out incident 14Admin Note: per pt 15Admin Note: [facility] Medications Albuterol (Eqv-ProAir HFA) 90 mcg/inh inhalation aerosol 2 puffs, Inhalation, Every 6 hours, PRN Wheezing/Shortness of Breath, # 6.7 Gm, 11 Refills, Maintenance, 02/26/22 9:18:00 EDT, [facility]/pharmacy #9577, Partial fill upon patient request if the [...] each, 4 Refills, Maintenance, 02/07/22 12:08:00 EDT, [place], [facility]/pharmacy #2476, Partial fill upon [...] 16 Gm,6 Refills, Maintenance, 11/06/21 10:21:00 EST, [place], [facility]/pharmacy #2476, Partial fill upon patientrequest if the prescription is for a schedule II op... Start Date: 11/06/21 Status: Ordered levothyroxine 0.05 mg oral tablet See Instructions, TAKE 1 TABLET BY MOUTH EVERY DAY, # 90 tablet, 1 Refills, [facility] STORE 40156, 156, cm, 02/07/22 11:31:00 EDT, Height Start Date: 02/19/22 Status: Ordered loratadine 10 mg oral tablet 10 mg, 1, tablet, By Mouth, Daily, # 30 tablet, Refills 11, Tot. Refills 11, Maintenance, 02/26/22 9:18:00 EDT, Route to Pharmacy Electronically, [facility]/pharmacy #0416, Partial fill upon patient requestif the prescription is for a schedule II opioid lauro... Start Date: 02/26/22 Status: Ordered multivitamin Multiple Vitamins oral tablet, chewable 1 tablet, By Mouth, Daily, # 30 tablet, 0 Refills, Maintenance, 12/09/19 10:30:00 EST Start Date: 12/09/19 Stop Date: 01/08/20 Status: Ordered Nucala Prefilled Autoinjector 100 mg/mL subcutaneous solution = 100 mg, Subcutaneous Infusion, Every 28 days, # 1 each, 11 Refills, Maintenance, 03/21/22 15:54:00 EDT, Partial fill upon patient request if the prescription is for a schedule II opioid drug., 156,cm, 03/18/22 8:26:00 EDT, Height Start Date: 03/21/22 Status: Ordered omeprazole 20 mg oral enteric [...] 9:18:00 EDT, Aerosol, Route to Pharmacy Electronically, [id number]... Start Date: 02/26/22 Status: Ordered Vitamin D3 [...]
--- OUTSIDE RECORDS SUMMARY | 2024-07-15 15:44 | XMS_ITS | Continuity of Care Document ---
Author Organization [facility] Address [address] [place] [address]- Care Team Providers Care Leaf Conditioner Name Role Phone Santi James MD Primary Care Physician [facility] 02[facility]26[facility]23 - 03/28/23 [facility] [address] [place], [place] [address] Allergies, Adverse Reactions, Alerts Substance Reaction Severity Status doxycycline Hives Active morphine Active predniSONE Anaphylaxis Active benzonatate Speech impediment Active Percocet Active Topamax Skin rash Active nitrofurantoin Pruritus Rash Active Lopid Muscle [...] 11/03/99 Given 1Admin Note: done @ [facility],form received 2Result Comment: [07/31/2015] [facility] 3Admin Note: done @ [facility] 4Admin Note: vis sheet given. 5Admin Note: work 6Admin Note: given at [facility] [place] 7Admin Note: per pt, done at [facility] 8Admin Note: done @ [facility], form received 9Admin Note: given at work 10Admin Note: given in the fall 11Result Comment: [id number] 12Result Comment: [08/31/2018] [id number] 13Result Comment: [08/24/2015] given w/out incident 14Admin Note: per pt 15Admin Note: [facility] Medications acetaminophen 650 mg oral tablet, extended release 1 tablet, By Mouth, Every 8 hours, PRN NEEDED FOR PAIN, # 90 tablet, 3 Refills, Maintenance, 01/17/23 12:44:00 EDT, [facility], 156.15, cm, 11/29/22 14:40:00 EST, Height, 79.5, [...] each, 10 Refills, Maintenance, 11/25/22 15:18:00 EST, [place], [facility]/pharmacy #2476, replaces 0.15% dose, 1 sprays Nares, [...] tablet, 1 Refills, Maintenance, 03/01/23 14:21:00 EDT, [facility] STORE 25435, 156.15, cm, 11/29/22 14:40:00 EST, Height, 79.5, [...] 4 Refills, Maintenance, 03/28/23 13:04:00 EDT, Aerosol, [facility]/pharmacy #3906, replaced Proventil that is not available, 155, [...] Role: Primary Care Nurse Address: Address: [address] [place] [address]- Name: Talia Matute RN Position: [facility] ED RN W/OE and Tasks Member Role: Primary Care Nurse Name: Santi James MD Position: [facility] Physician - Primary Care Member Role: PCP Address: Address: [address] [place] [address] Adult & [place] [address]- Care Team Related Persons Name: PITER BAILEY Address: home [address] [place] [address] Name: DELMIS ADAMS Address: home [address] [place], [place] Name: RUPERT PALMER Address: [address] [place], [place] Name: DESIRAE CHAUDHARY Address: home [address] [place], [place]
--- OUTSIDE RECORDS SUMMARY | 2024-07-15 15:44 | XMS_ITS | Continuity of Care Document ---
Author Organization [facility] Address [address] [place] [address]- Care Team Providers Care Manager Strategic Partnerships Name Role Phone Jacob DORAN, Santi Primary Care Physician [facility] Date(s): 01/22/22 - 02/21/22 [facility] [address] [place], [place] [address] Allergies, Adverse Reactions, [...] influenza virus vaccine, inactivated 5 08/03/11 Gi crisetl influenza virus vaccine, inactivated 6 07/08/10 Gi [...] 11/03/99 Given 1Admin Note: done @ [facility],form received 2Result Comment: [07/31/2015] [facility] 3Admin Note: done @ [facility] 4Admin Note: vis sheet given. 5Admin Note: work 6Admin Note: given at [facility] 7Admin Note: per pt, done at [facility] 8Admin Note: done @ [facility], form received 9Admin Note: given at work 10Admin Note: given in the fall 11Result Comment: [id number] 12Result Comment: [08/31/2018] [id number] 13Result Comment: [08/24/2015] given w/out incident 14Admin [...] each, 4 Refills, Maintenance, 02/07/22 12:08:00 EDT, [place], [facility]/pharmacy #7596, Partial fill upon patient request if the prescription is for a schedule II opioid drug., 1 sprays Nares... Start Date: 02/07/22 Stop Date: 07/07/22 Status: Ordered cetirizine 10 mg oral tablet 1 tablet = 10 mg, By Mouth, Daily, # 90 tablet, 3 Refills, Maintenance, 03/13/21 8:26:00 EDT, Tablet, [facility] #[id number], 156, cm, 03/13/21 8:16:00 EDT, Height, 78.8, [...] 16 Gm,6 Refills, Maintenance, 11/06/21 10:21:00 EST, [place], [facility]/pharmacy #[id number], Partial fill upon patientrequest if the prescription is for a schedule II op... Start Date: 11/06/21 Status: Ordered fluconazole 100 mg oral tablet 1 tablet, By Mouth, Daily, for 3 days, # 3 tablet, 0 Refills, Physician Stop, [facility], 156,cm, 02/07/22 11:31:00 EDT, Height Start Date: 02/21/22 Stop Date: 02/24/22 Status: Ordered levothyroxine 0.05 mg oral tablet See Instructions, TAKE 1 TABLET BY MOUTH EVERY DAY, # 90 tablet, 1 Refills, [facility], 156, cm, 02/07/22 11:31:00 EDT, Height Start Date: 02/19/22 Status: Ordered montelukast 10 mg oral tablet See Instructions, TAKE 1 TABLET BY MOUTH EVERY DAY, # 90 tablet, Refills 1, Instructions Replace Required Details, Route to Pharmacy Electronically, [facility], 156, cm, 09/04/21 8:41:00 EDT, Height, 78.8, [...] each, Refills 4, Route to Pharmacy Electronically, [id number], [facility] 00693, 156, cm, 09/04/21 8:41:00 EDT, Height, 78.8, kg, 12/20/19 10:35:00 EST, Dry Weight Start Date: 10/08/21 Status: Ordered Symbicort 160mcg/4.5mcg Inhaler 2, puffs, Inhalation, 2 times a day, in the morning and the evening use with spacer chamber rinse mouth and throat after use, # 54 Gm, Refills 12, Tot. Refills 12, Maintenance, 09/04/21 9:38:00 EDT, Aerosol, Route to Pharmacy Electronically, [id number]... Start Date: 09/04/21 Status: Ordered Vitamin D3 [...]
--- OUTSIDE RECORDS SUMMARY | 2024-07-15 15:44 | XMS_ITS | Continuity of Care Document ---
Author Organization [facility] Address [address] [place] [address]- Care Team Providers Care Complaints Coordinator Name Role Phone Santi James MD Primary Care Physician [facility] Date[facility]s): 12/20/19 - 12/30/19 [facility] [address] [place] [address]- [facility] Attending Physician: Ken Galarza Admitting Physician: Ken Galarza Referring Physician: [...] in the fall 3Admin Note: done @ [facility], form received 4Result Comment: [id number] 5Result Comment: [08/31/2018] [id number] 6Result Comment: [08/24/2015] given w/out incident 7Admin Note: done @ [facility],form received 8Result Comment: [07/31/2015] [facility] 9Admin Note: done @ [facility] 10Admin Note: vis sheet given. 11Admin Note: [...] 11:16:00 EDT, 12/03/19 11:16:00 EST, ER Tablet, [facility]/pharmacy #[id number], 156, cm, 12/03/19 8:37:00 EST, Height, [...] 4 Refills, Maintenance, 12/01/19 12:54:00 EST, Solution, [facility]/pharmacy #2476, 156, cm, 12/01/19 12:40:00 EST, Height, 79.6, kg, 03/10/19 14:10:00 EDT, Dry Weight Start Date: 12/01/19 Stop Date: 04/29/20 Status: Ordered albuterol CFC free 90 mcg/inh inhalation aerosol 2, puffs, Inhalation, Every 4 hours, PRN, # 9 Gm, Refills 0, Tot. Refills 0, Maintenance, 10/28/17 14:12:34, Aerosol, Route to Pharmacy Electronically, [id number], [facility]/pharmacy #1972, Compound Start Date: 10/28/17 [...] 08/16/19 14:35:23 EDT, Route to Pharmacy Electronically, [id number], [facility]/pharmacy #2476, increase in dose Start Date: 08/16/19 [...] 09/13/19 13:49:27 EST, Route to Pharmacy Electronically, [id number], [facility]/pharmacy #2476 Start Date: 09/13/19 Stop Date: 05/10/20 [...]
--- OUTSIDE RECORDS SUMMARY | 2024-07-15 15:44 | XMS_ITS | Continuity of Care Document ---
Author Organization [facility] Address [address] [place] [address]- Care Team Providers Care Machinist Name Role Phone Jacob DORAN, Santi Primary Care Physician [facility] Date(s): 01/27/24 - 02/26/24 [facility] [address] [place], [place] [address] Allergies, Adverse Reactions, Alerts Substance Reaction Severity [...] (Td) 11/03/99 Given 1Admin Note: done @ [facility],form received 2Result Comment: [07/31/2015] [facility] 3Admin Note: done @ [facility] 4Admin Note: vis sheet given. 5Admin Note: work 6Admin Note: given at [facility] [place] 7Admin Note: per pt, done at [facility] 8Admin Note: done @ [facility], form received 9Admin Note: given at work 10Admin Note: given in the fall 11Result Comment: [id number] 12Result Comment: [08/31/2018] [id number] 13Result Comment: [08/24/2015] given w/out incident 14Admin [...] tablet, 3 Refills, Maintenance, 01/17/23 12:44:00 EDT, [facility], 156.15, cm, 11/29/22 14:40:00 EST, Height, 79.5, [...] 90 Unknown,1 Refills, Maintenance, 06/10/23 8:18:00 EDT, [facility], 90, USE 1 SPRAY IN BOTH NOSTRILS [...] Refills, Soft Stop, 03/14/23 15:31:00 EDT, [facility], Partial fill upon patient request if theprescription is for a schedule II opioid drug., 155... Start Date: 03/14/23 Status: Ordered fexofenadine 180 mg oral tablet 1 tablet = 180 mg, By Mouth, Daily, PRN for allergy symptoms, # 90 tablet, 4 Refills, Maintenance, 09/02/23 11:04:00 EDT, Tablet, [facility]/pharmacy #2476, Partial fill upon patient request if the prescription is for a schedule II opioid drug., 155, cm, ... Start Date: 09/02/23 Stop Date: 11/25/24 Status: Ordered fluconazole 150 mg oral tablet 1 tablet = 150 mg, By Mouth, Once, repeat dose if still having symptoms in 72 hours, # 2 tablet, 0 Refills, Soft Stop, 12/22/23 13:26:00 EST, Tablet, [facility]/pharmacy #2476, Partial fill upon patient request if the prescription is for a schedule II opioid... Start Date: 12/22/23 Status: Ordered ibuprofen 800 mg oral tablet 1, tablet, By Mouth, 3 times a day, X30 DAYS, STOP ASPIRIN WHILE TAKING THIS., # 90 tablet, Refills1, Maintenance, 12/04/23 7:25:00 EST, Route to Pharmacy Electronically, [facility], 155, cm, 11/18/23 16:29:00 EST, Height, 83.7, kg, 11/06/23 9:0... Start Date: 12/04/23 Status: Ordered levothyroxine 0.05 mg oral tablet 1 tablet, By Mouth, Daily, # 90 tablet, 3 Refills, Maintenance, 08/12/23 15:31:00 EDT, [facility]/pharmacy#2476, 155, cm, 08/12/23 15:09:00 EDT, Height, 83.9, kg, 03/13/23 4:46:00 EDT, Dry Weight Start Date: 08/12/23 Stop Date: 08/06/24 Status: Ordered montelukast 10 mg oral tablet 1, tablet, By Mouth, Daily, # 90 tablet, Refills 3, Maintenance, 11/23/23 8:40:00 EST, Route to Pharmacy Electronically, [facility], 155, cm, 11/18/23 16:29:00 EST, Height, 83.7, [...] Personnel Name: Justa HARRIS, Geni Orlando Position: [facility] Associate Professional Member Role: Primary Care Nurse Address: Address: [address] [place] [address] [address]- Name: Talia Matute RN Position: [facility] RN Member Role: Primary Care Nurse Name: Darshan Benz RN Position: [facility] Outreach Member Role: Primary Care Nurse Name: Santi James MD Position: [facility] Physician - Primary Care Member Role: PCP Address: Address: [address] [place] [address] Adult [facility] [place] [address]- Care Team Related Persons Name: PITER BAILEY Address: home [address] [place] [address] Name: DELMIS ADAMS Address: home [place], [place] Name: RUPERT PALMER Address: home [address] [place], [place] Name: DESIRAE CHAUDHARY Address: home [address] [place], [place]
--- OUTSIDE RECORDS SUMMARY | 2024-07-15 15:44 | XMS_ITS | Continuity of Care Document ---
Author Organization [facility] Address [address] [place] [address]- Care Team Providers Care Tuckpointer Cleaner Caulker Name Role Phone Jacob DORAN, Santi Primary Care Physician [facility] Date[facility]s): 11/05/23 - 12/05/23 [facility] [address] [place], [place] [address] Allergies, Adverse Reactions, [...] 6Admin Note: given at [facility] [place] 7Admin Note: per pt, done at [facility] 8Admin Note: done @ [facility], form received 9Admin Note: given at work 10Admin Note: given in the fall 11Result Comment: [id number] 12Result Comment: [08/31/2018] [id number] 13Result Comment: [08/24/2015] given w/out incident 14Admin [...] tablet, 3 Refills, Maintenance, 01/17/23 12:44:00 EDT, [facility] 78[facility], 156.15, cm, 11/29/22 14:40:00 EST, Height, 79.5, [...] 90 Unknown,1 Refills, Maintenance, 06/10/23 8:18:00 EDT, [facility] 00[facility], 90, USE 1 SPRAY IN BOTH NOSTRILS [...] Refills, Soft Stop, 11/06/23 9:46:00 EST, Tablet, [facility]/pharmacy #0735, Partial fill upon patient request if the prescription is for a schedule II opioid drug., 155, cm, 11/06/23 9:08:00 EST, Height, 83.7... Start Date: 11/06/23 Status: Ordered EpiPen 2-Tramaine 0.3 mg injectable kit = 0.3 mg, Intramuscular, Once, PRN Anaphylactic Reaction, may repeat if necessary, # 1 each, 11 Refills, Soft Stop, 03/14/23 15:31:00 EDT, [facility]/pharmacy #2476, Partial fill upon patient request if theprescription is for a schedule II opioid drug., 155... Start Date: 03/14/23 Status: Ordered fexofenadine 180 mg oral tablet 1 tablet = 180 mg, By Mouth, Daily, PRN for allergy symptoms, # 90 tablet, 4 Refills, Maintenance, 09/02/23 11:04:00 EDT, Tablet, [facility]/pharmacy #2476, Partial fill upon patient request if the prescription is for a schedule II opioid drug., 155, cm, ... Start Date: 09/02/23 Stop Date: 11/25/24 Status: Ordered fluconazole 150 mg oral tablet 1 tablet = 150 mg, By Mouth, Once, repeat dose if still having symptoms in 72 hours, # 2 tablet, 0 Refills, Soft Stop, 11/28/23 12:38:00 EST, Tablet, [facility]/pharmacy #2476, Partial fill upon patient request if the prescription is for a schedule II opioid... Start Date: 11/28/23 Status: Ordered ibuprofen 800 mg oral tablet 1, tablet, By Mouth, 3 times a day, X30 DAYS, STOP ASPIRIN WHILE TAKING THIS., # 90 tablet, Refills1, Maintenance, 12/04/23 7:25:00 EST, Route to Pharmacy Electronically, [facility] ST[facility] 07581, 155, cm, 11/18/23 16:29:00 EST, Height, 83.7, kg, 11/06/23 9:0... Start Date: 12/04/23 Status: Ordered levothyroxine 0.05 mg oral tablet 1 tablet, By Mouth, Daily, # 90 tablet, 3 Refills, Maintenance, 08/12/23 15:31:00 EDT, [facility]/pharmacy#2476, 155, cm, 08/12/23 15:09:00 EDT, Height, 83.9, kg, 03/13/23 4:46:00 EDT, Dry Weight Start Date: 08/12/23 Stop Date: 08/06/24 Status: Ordered montelukast 10 mg oral tablet 1, tablet, By Mouth, Daily, # 90 tablet, Refills 3, Maintenance, 11/23/23 8:40:00 EST, Route to Pharmacy Electronically, [facility] STORE 93114, 155, cm, 11/18/23 16:29:00 EST, Height, 83.7, [...] 4 Refills, Maintenance, 03/28/23 13:04:00 EDT, Aerosol, [facility]/pharmacy #2476, replaced Proventil that is not available, 155, cm, 03/13/23 11:02:00 EDT, Height, 83.9, kg, 03/13/23 4:46:00 EDT... Start Date: 03/28/23 Stop Date: 08/25/23 Status: Ordered Zetia 10 mg oral tablet 1 tablet = 10 mg, By Mouth, Daily, # 30 tablet, 1 Refills, Maintenance, 10/28/23 10:28:00 EST, Tablet, [facility]/pharmacy #2476, Partial fill upon patient request if [...] Personnel Name: Justa HARRIS, Geni Orlando Position: [facility] Associate Professional Member Role: Primary Care Nurse Address: Address: [address] [place] [address]- Name: Talia Matute RN Position: [facility] RN Member Role: Primary Care Nurse Name: Santi James MD Position: [facility] Physician - Primary Care Member Role: PCP Address: Address: [address] [place] [address] Adult [place] [address]- Care Team Related Persons Name: PITER BAILEY Address: home [address] [place] [address] Name: DELMIS ADAMS Address: home [place], [place] Name: RUPERT PALMER Address: home [address] [place], [place] Name: DESIRAE CHAUDHARY Address: home [address] [place], [place]
--- OUTSIDE RECORDS SUMMARY | 2024-07-15 15:44 | XMS_ITS | Continuity of Care Document ---
Author Organization [facility] Address [address] [place] [address]- Care Team Providers Care Aircrewman Name Role Phone Santi James MD Primary Care Physician Encounter [facility] Date(s): 08/05/23 - 08/12/23 [facility] [address] [place], [place] [address] Encounter Diagnosis Pain of right calf(Discharge Diagnosis) - 08/05/23 Attending Physician: Santi James MD Allergies, Adverse [...] (Td) 11/03/99 Given 1Admin Note: done @ [facility],form received 2Result Comment: [07/31/2015] [facility] 3Admin Note: done @ [facility] 4Admin Note: vis sheet given. 5Admin Note: work 6Admin Note: given at [facility] in [place] 7Admin Note: per pt, done at [facility] 8Admin Note: done @ [facility], form received 9Admin Note: given at work 10Admin Note: given in the fall 11Result Comment: [id number] 12Result Comment: [08/31/2018] [id number] 13Result Comment: [08/24/2015] given w/out incident 14Admin [...] tablet, 3 Refills, Maintenance, 01/17/23 12:44:00 EDT, [facility] 73[facility], 156.15, cm, 11/29/22 14:40:00 EST, Height, 79.5, [...] 90 Unknown,1 Refills, Maintenance, 06/10/23 8:18:00 EDT, [facility] 30[facility], 90, USE 1 SPRAY IN BOTH NOSTRILS 2 TIMES A DAY NEEDED FOR ALLERGIES, 155, cm, ... Start Date: 06/10/23 Status: Ordered CeleBREX 100 mg oral capsule 1 capsule = 100 mg, By Mouth, 2 times a day, PRN for pain, # 60 capsule, 4 Refills, Maintenance, 08/12/23 15:29:00 EDT, Caps[facility], [facility], replaces ibuprofen, 155, cm, 08/12/23 15:09:00 EDT, [...] 155... Start Date: 03/14/23 Status: Ordered ergocalciferol 72652 iu oral capsule 50,000 International_Units, 1, capsule, By Mouth, Every week, # 12 capsule, Refills 0, Tot. Refills0, Maintenance, 06/12/23 7:24:00 EDT, Route to Pharmacy Electronically, [facility]/pharmacy #2476, Partialfill upon patient [...] Daily, # 30 tablet, 0 Refills, Maintenance, 02/06/20 10:30:00 EST Start Date: 12/09/19 Stop Date: [...] Dates Health Status Cl inical Service Informant Pain of right calf Discharge Diagnosis 08/05/23 Social History Social History Type Response Smoking Status Never smoker entered on: 10/12/14 Sex Patient Care team information Care Team Personnel Name: Justa HARRIS, Geni Orlando Position: [facility] Associate Professional Member Role: Primary Care Nurse Address: Address: [address] [place] [address]- Name: Juju QIU, Talia Position: [facility] RN Member Role: Primary Care Nurse Name: Santi James MD Position: [facility] Physician - Primary Care Member Role: PCP Address: Address: [address] [place] [address] Adult [place] [address]- Care Team Related Persons Name: PITER BAILEY Address: home [address] [place] [address] Name: DELMIS ADAMS Address: home [place] [place], [place] Name: RUPERT PALMER Address: home [address] [place], [place] Name: DESIRAE CHAUDHARY Address: home [address] [place], [place]
--- OUTSIDE RECORDS SUMMARY | 2024-07-15 15:44 | XMS_ITS | Continuity of Care Document ---
Author Organization [facility] Address [address] [place] [address]- Care Team Providers Care Health Counselor Name Role Phone Santi James MD Primary Care Physician Encounter [facility] Date(s): 07/17/20 - 08/16/20 [facility] [address] [place] [address] Allergies, Adverse Reactions, Alerts Substance Reaction Severity [...] in the fall 3Admin Note: done @ [facility], form received 4Result Comment: [id number] 5Result Comment: [08/31/2018] [id number] 6Result Comment: [08/24/2015] given w/out incident 7Admin Note: done @ [facility],form received 8Result Comment: [07/31/2015] [facility] 9Admin Note: done @ [facility] 10Admin Note: vis sheet given. 11Admin Note: work 12Admin Note: given at [facility] 13Admin Note: per pt, done at [facility] 14Admin Note: per pt 15Admin Note: [employer] Medications acetaminophen 650 mg oral tablet, extended release 1 tablet = 650 mg, By Mouth, Every 8 hours, PRN Pain , Moderate, for 30 days, # 90 tablet, 7 Refills, Acute 11/08/20 11:12:00 EST, 03/13/20 11:12:00 EDT, ER Tablet, [facility]/pharmacy #2476, 156, cm, 03/13/20 10:31:00 EDT, Height, 78.8, kg, 12/20/19 10:35:0... Start Date: 03/13/20 Stop Date: 11/08/20 Status: Ordered albuterol 0.083% inhalation solution 3 mL = 2.5 mg, Inhalation, Every 6 hours, PRN for wheezing, Dx: asthma, # 100 each, 4 Refills, Maintenance, 12/01/19 12:54:00 EST, Solution, [facility]/pharmacy #2476, 156, cm, 12/01/19 12:40:00 EST, Height, 79.6, kg, 03/10/19 14:10:00 EDT, Dry Weight Start Date: 12/01/19 Stop Date: 04/29/20 Status: Ordered albuterol CFC free 90 mcg/inh inhalation aerosol 2, puffs, Inhalation, Every 4 hours, PRN, # 9 Gm, Refills 0, Tot. Refills 0, Maintenance, 10/28/17 14:12:34, Aerosol, Route to Pharmacy Electronically, [id number], [facility]/pharmacy #1972, Compound Start [...] 02/14/20 8:39:00 EDT, Route to Pharmacy Electronically, [facility]/pharmacy #5605, increase in dose, 156, cm, 12/23/19 13:03:00 EST, Height, 78.8, kg, 12/20/19 10:35:00... Start Date: 02/14/20 Stop Date: 04/14/20 Status: Ordered ipratropium nasal 21 mcg/inh spray 2 sprays, Nares, Both, 2 times a day, # 30 mL, 0 Refills, Maintenance, 07/25/20 16:52:00 EDT, [place], [facility]/pharmacy #2476, 2 sprays Nares, Both 2 times a day, 156, cm, 03/13/20 10:31:00 EDT, Height, 78.8, kg, 12/20/19 10:35:00 EST, Dry Weight Start Date: 07/25/20 Status: Ordered levothyroxine 0.05 mg oral tablet 1 tablet = 50 mcg, By Mouth, Daily, # 90 tablet, 3 Refills, Maintenance, 03/13/20 11:08:00 EDT, Tablet, [facility]/pharmacy #2476, 156, cm, 03/13/20 10:31:00 EDT, Height, 78.8, kg, 12/20/19 10:35:00 EST, Dry Weight Start Date: 03/13/20 Stop Date: 03/08/21 Status: Ordered montelukast 10 mg oral tablet 10 mg, 1, tablet, By Mouth, Daily, # 90 tablet, Refills 1, Tot. Refills 1, Maintenance, 03/08/20 9:54:00 EDT, Route to Pharmacy Electronically, [facility]/pharmacy #2476, 156, cm, 12/23/19 13:03:00 EST, [...]
--- OUTSIDE RECORDS SUMMARY | 2024-07-15 15:44 | XMS_ITS | Continuity of Care Document ---
Author Organization [facility] Address [address] [place] [address]- Care Team Providers Care Molded Grid And Parts Inspector Name Role Phone Santi James MD Primary Care Physician [facility] Date[facility]s): 09/11/23 - 10/12/23 [facility] [address] [place], [place] [address] Attending Physician: Santi James [...] 11/03/99 Given 1Admin Note: done @ [facility],form received 2Result Comment: [07/31/2015] [facility] 3Admin Note: done @ [facility] 4Admin Note: vis sheet given. 5Admin Note: work 6Admin Note: given at [facility] in [place] 7Admin Note: per pt, done at [facility] 8Admin Note: done @ [facility], form received 9Admin Note: given at work 10Admin Note: given in the fall 11Result Comment: [id number] 12Result Comment: [08/31/2018] [id number] 13Result Comment: [08/24/2015] given w/out incident 14Admin [...] tablet, 3 Refills, Maintenance, 01/17/23 12:44:00 EDT, [facility] 768[facility], 156.15, cm, 11/29/22 14:40:00 EST, Height, 79.5, [...] 90 Unknown,1 Refills, Maintenance, 06/10/23 8:18:00 EDT, [facility] 317[facility], 90, USE 1 SPRAY IN BOTH NOSTRILS [...] 11 Refills, Soft Stop, 03/14/23 15:31:00 EDT, [facility]/pharmacy #9983, Partial fill upon patient request if theprescription is for a schedule II opioid drug., 155... Start Date: 03/14/23 Status: Ordered ergocalciferol 13347 iu oral capsule 50,000 International_Units, 1, capsule, By Mouth, Every week, # 12 capsule, Refills 0, Tot. Refills0, Maintenance, 06/12/23 7:24:00 EDT, [facility], Partialfill upon patient request if the prescription is fo... Start Date: 06/12/23 Stop Date: 09/04/23 Status: Ordered fexofenadine 180 mg oral tablet 1 tablet = 180 mg, By Mouth, Daily, PRN for allergy symptoms, # 90 tablet, 4 Refills, Maintenance, 09/02/23 11:04:00 EDT, Tablet, [facility]/pharmacy #2476, Partial fill upon patient request if the prescription is for a schedule II opioid drug., 155, cm, ... Start Date: 09/02/23 Stop Date: 11/25/24 Status: Ordered fluconazole 150 mg oral tablet 1 tablet = 150 mg, By Mouth, Once, repeat dose if still having symptoms in 72 hours, # 2 tablet, 0 Refills, Soft Stop, 10/03/23 16:14:00 EST, Tablet, [facility]/pharmacy #2476, Partial fill upon patient request if the prescription is for a schedule II opioid... Start Date: 10/03/23 Status: Ordered levothyroxine 0.05 mg oral tablet 1 tablet, By Mouth, Daily, # 90 tablet, 3 Refills, Maintenance, 08/12/23 15:31:00 EDT, [facility]/pharmacy#2476, 155, cm, 08/12/23 15:09:00 EDT, Height, [...] Fracture of finger of left hand Confirmed 3/16/15 Active Generalized osteoarthritis Confirmed Active History of [...] Role: Primary Care Nurse Address: Address: [address] [place] [address]- Name: Talia Matute RN Position: [facility] RN Member Role: Primary Care Nurse Name: Santi James MD Position: [facility] Physician - Primary Care Member Role: PCP Address: Address: [address] [place] [address] Adult & [place] [address]- Care Team Related Persons Name: PITER BAILEY Address: home [address] [place] [address] Name: DELMIS ADAMS Address: home [place] [place], [place] Name: RUPERT PALMER Address: home [address] [place], [place] Name: DESIRAE CHAUDHARY Address: home [address] [place], [place]
--- OUTSIDE RECORDS SUMMARY | 2024-07-15 15:44 | XMS_ITS | Continuity of Care Document ---
Author Organization [facility] Address [address] [place] [address]- Care Team Providers Care Door Core Assembler Name Role Phone Santi James MD Primary Care Physician [facility]23 - 04/11/23 [facility] [address] [place], [place] [address] Allergies, Adverse Reactions, Alerts Substance [...] 11/03/99 Given 1Admin Note: done @ [facility],form received 2Result Comment: [07/31/2015] [facility] 3Admin Note: done @ [facility] 4Admin Note: vis sheet given. 5Admin Note: work 6Admin Note: given at [facility] in [place] 7Admin Note: per pt, done at [facility] 8Admin Note: done @ [facility], form received 9Admin Note: given at work 10Admin Note: given in the fall 11Result Comment: [id number] 12Result Comment: [08/31/2018] [id number] 13Result Comment: [08/24/2015] given w/out incident 14Admin Note: per pt 15Admin Note: [facility] Medications acetaminophen 650 mg oral tablet, extended release 1 tablet, By Mouth, Every 8 hours, PRN NEEDED FOR PAIN, # 90 tablet, 3 Refills, Maintenance, 01/17/23 12:44:00 EDT, [facility], 156.15, cm, 11/29/22 14:40:00 EST, Height, 79.5, [...] each, 10 Refills, Maintenance, 11/25/22 15:18:00 EST, [place], [facility]/pharmacy #2476, replaces 0.15% dose, [...] 11 Refills, Soft Stop, 03/14/23 15:31:00 EDT, [facility]/pharmacy #[id number], Partial fill upon patient request if theprescription is for a schedule II opioid drug., 155... Start Date: 03/14/23 Status: Ordered ergocalciferol 11643 iu oral capsule 50,000 International_Units, 1, capsule, By Mouth, Every week, # 12 capsule, Refills 0, Tot. Refills0, Maintenance, 04/10/23 9:13:00 EDT, Route to Pharmacy Electronically, [facility]/pharmacy #[id number], Partialfill upon patient [...] Refills, Maintenance, 03/01/23 14:21:00 EDT, [facility] STORE 06303, 156.15, cm, 11/29/22 14:40:00 EST, Height, 79.5, [...] Maintenance, 03/28/23 13:04:00 EDT, Aerosol, [facility]/pharmacy #3263, replaced Proventil that is not available, 155, [...] Personnel Name: Justa HARRIS, Geni [place] Position: [facility] Associate Professional Member Role: Primary Care Nurse Address: Address: [address] [place] [address]- Name: Talia Matute RN Position: [facility] RN Member Role: Primary Care Nurse Name: Santi James MD Position: [facility] Physician - Primary Care Member Role: PCP Address: Address: [address] [place] [address] Adult & [place] [address]- Care Team Related Persons Name: PITER BAILEY Address: home [address] [place] [address] Name: DELMIS ADAMS Address: home [place], [place] Name: RUPERT PALMER Address: home [address] [place], [place] Name: DESIRAE CHAUDHARY Address: home [address] [place], [place]
--- OUTSIDE RECORDS SUMMARY | 2024-07-15 15:44 | XMS_ITS | Continuity of Care Document ---
Author Organization [facility] Address [address] [place] [address]- Care Team Providers Care Injection Molding Operator Name Role Phone Jacob DORAN, Santi Primary Care Physician [facility]): 03[facility]10/23 - 04/09/23 [facility] [address] [place], [place] [address] Allergies, Adverse Reactions, Alerts Substance Reaction [...] 6Admin Note: given at [facility] 7Admin Note: per pt, done at [facility] 8Admin Note: done @ [facility], form received 9Admin Note: given at work 10Admin Note: given in the fall 11Result Comment: [id number] 12Result Comment: [08/31/2018] [id number] 13Result Comment: [08/24/2015] given w/out incident 14Admin Note: per pt 15Admin Note: [facility] Medications acetaminophen 650 mg oral tablet, extended release 1 tablet, By Mouth, Every 8 hours, PRN NEEDED FOR PAIN, # 90 tablet, 3 Refills, Maintenance, 01/17/23 12:44:00 EDT, [facility], 156.15, cm, 11/29/22 14:40:00 EST, Height, 79.5, [...] each, 10 Refills, Maintenance, 11/25/22 15:18:00 EST, [place], [facility]/pharmacy #2476, replaces 0.15% dose, 1 sprays [...] Refills, Maintenance, 03/01/23 14:21:00 EDT, [facility], 156.15, cm, 11/29/22 14:40:00 EST, Height, 79.5, [...] 4 Refills, Maintenance, 03/28/23 13:04:00 EDT, Aerosol, [facility]/pharmacy #7986, replaced Proventil that is not available, 155, [...] Member Role: Primary Care Nurse Address: Address: [address] [place] [address]- Name: Talia Matute RN Position: [facility] RN Member Role: Primary Care Nurse Name: Santi James MD Position: [facility] Physician - Primary Care Member Role: PCP Address: Address: [address] [place] [address] Adult [place] [address]- Care Team Related Persons Name: PITER BAILEY Address: home [address] [place] [address] Name: DELMIS ADAMS Address: [place] [address] Name: RUPERT PALMER Address: [address] [place] [address] Name: DESIRAE CHAUDHARY Address: home [address] [place], [place]
--- OUTSIDE RECORDS SUMMARY | 2024-07-15 15:45 | XMS_ITS | Continuity of Care Document ---
Author Organization [facility] Address [address] [place] [address]- Care Team Providers Care Cage Supervisor Name Role Phone Santi James MD Primary Care Physician [facility] 11/26/23 - 12/26/23 [facility] [address] [place], [place] [address] Allergies, Adverse Reactions, Alerts Substance [...] 11/03/99 Given 1Admin Note: done @ [facility],form received 2Result Comment: [07/31/2015] [facility] 3Admin Note: done @ [facility] 4Admin Note: vis sheet given. 5Admin Note: work 6Admin Note: given at [facility] in [place] 7Admin Note: per pt, done at [facility] 8Admin Note: done @ [facility], form received 9Admin Note: given at work 10Admin Note: given in the fall 11Result Comment: [id number] 12Result Comment: [08/31/2018] [id number] 13Result Comment: [08/24/2015] given w/out incident 14Admin [...] tablet, 3 Refills, Maintenance, 01/17/23 12:44:00 EDT, [facility]8413, 156.15, cm, 11/29/22 14:40:00 EST, Height, 79.5, [...] 90 Unknown,1 Refills, Maintenance, 06/10/23 8:18:00 EDT, [facility], 90, USE 1 SPRAY IN BOTH NOSTRILS [...] Refills, Soft Stop, 11/06/23 9:46:00 EST, Tablet, [facility]/pharmacy #9932, Partial fill upon patient request if the prescription is for a schedule II opioid drug., 155, cm, 11/06/23 9:08:00 EST, Height, 83.7... Start Date: 11/06/23 Status: Ordered EpiPen 2-Tramaine 0.3 mg injectable kit = 0.3 mg, Intramuscular, Once, PRN Anaphylactic Reaction, may repeat if necessary, # 1 each, 11 Refills, Soft Stop, 03/14/23 15:31:00 EDT, [facility]/pharmacy #2476, Partial fill upon patient request if theprescription is for a schedule II opioid drug., 155... Start Date: 03/14/23 Status: Ordered fexofenadine 180 mg oral tablet 1 tablet = 180 mg, By Mouth, Daily, PRN for allergy symptoms, # 90 tablet, 4 Refills, Maintenance, 09/02/23 11:04:00 EDT, Tablet, [facility]/pharmacy #2476, Partial fill upon patient request if the prescription is for a schedule II opioid drug., 155, cm, ... Start Date: 09/02/23 Stop Date: 11/25/24 Status: Ordered fluconazole 150 mg oral tablet 1 tablet = 150 mg, By Mouth, Once, repeat dose if still having symptoms in 72 hours, # 2 tablet, 0 Refills, Soft Stop, 12/22/23 13:26:00 EST, Tablet, [facility]/pharmacy #2476, Partial fill upon patient request if the prescription is for a schedule II opioid... Start Date: 12/22/23 Status: Ordered ibuprofen 800 mg oral tablet 1, tablet, By Mouth, 3 times a day, X30 DAYS, STOP ASPIRIN WHILE TAKING THIS., # 90 tablet, Refills1, Maintenance, 12/04/23 7:25:00 EST, Route to Pharmacy Electronically, [facility] ST[facility] 39840, 155, cm, 11/18/23 16:29:00 EST, Height, 83.7, kg, 11/06/23 9:0... Start Date: 12/04/23 Status: Ordered levothyroxine 0.05 mg oral tablet 1 tablet, By Mouth, Daily, # 90 tablet, 3 Refills, Maintenance, 08/12/23 15:31:00 EDT, [facility]/pharmacy#2476, 155, cm, 08/12/23 15:09:00 EDT, Height, 83.9, kg, 03/13/23 4:46:00 EDT, Dry Weight Start Date: 08/12/23 Stop Date: 08/06/24 Status: Ordered montelukast 10 mg oral tablet 1, tablet, By Mouth, Daily, # 90 tablet, Refills 3, Maintenance, 11/23/23 8:40:00 EST, Route to Pharmacy Electronically, [facility], 155, cm, 11/18/23 16:29:00 EST, Height, 83.7, [...] 4 Refills, Maintenance, 03/28/23 13:04:00 EDT, Aerosol, [facility]/pharmacy #2476, replaced Proventil that is not available, 155, cm, 03/13/23 11:02:00 EDT, Height, 83.9, kg, 03/13/23 4:46:00 EDT... Start Date: 03/28/23 Stop Date: 08/25/23 Status: Ordered Zetia 10 mg oral tablet 1 tablet = 10 mg, By Mouth, Daily, # 30 tablet, 1 Refills, Maintenance, 10/28/23 10:28:00 EST, Tablet, [facility]/pharmacy #2476, Partial fill upon patient request if [...] Name: Justa HARRIS, Geni Orlando Position: [facility] Associate Professional Member Role: Primary Care Nurse Address: Address: [address] [place] [address]- Name: Talia Matute RN Position: [facility] RN Member Role: Primary Care Nurse Name: Santi James MD Position: [facility] Physician - Primary Care Member Role: PCP Address: Address: [address] [place] [address] Adult [place] [address]- Care Team Related Persons Name: PITER BAILEY Address: home [address] [place] [address] Name: DELMIS ADAMS Address: home [place], [place] Name: RUPERT PALMER Address: home [address] [facility], [place] Name: DESIRAE CHAUDHARY Address: home [address] [place], [place]
--- OUTSIDE RECORDS SUMMARY | 2024-07-15 15:45 | XMS_ITS | Continuity of Care Document ---
Author Organization [facility] Address [address] [place] [address]- Care Team Providers Care Bus Analyst Name Role Phone Santi James MD Primary Care Physician [facility] 07[facility]29[facility]23 - 08/28/23 [facility] [address] [place], [place] [address] Allergies, Adverse Reactions, Alerts Substance Reaction Severity Status morphine Active predniSONE Anaphylaxis Active benzonatate Speech impediment Active Percocet Active Levaquin Hives Active doxycycline Hives Active nitrofurantoin Pruritus Rash Active Lopid Muscle cramps Myalgia and myositis unspecified Active Biaxin Upset stomach Active Lipitor Myalgia unspecified Muscle cramps Active Topamax Skin rash Active tiZANidine Anaphylaxis Active Demerol Active Immunizations Given and Recorded [...] CENTER 3Admin Note: done @ [facility] 4Admin Note: vis sheet given. 5Admin Note: work 6Admin Note: given at [facility] in [place] 7Admin Note: per pt, done at [facility] 8Admin Note: done @ [facility], form received 9Admin Note: given at work 10Admin Note: given in the fall 11Result Comment: [id number] 12Result Comment: [08/31/2018] [id number] 13Result Comment: [08/24/2015] given w/out incident 14Admin [...] tablet, 3 Refills, Maintenance, 01/17/23 12:44:00 EDT, [facility] 01171, 156.15, cm, 11/29/22 14:40:00 EST, Height, 79.5, [...] 90 Unknown,1 Refills, Maintenance, 06/10/23 8:18:00 EDT, [facility] ST[facility] 34709, 90, USE 1 SPRAY IN BOTH NOSTRILS 2 TIMES A DAY NEEDED FOR ALLERGIES, 155, cm, ... Start Date: 06/10/23 Status: Ordered CeleBREX 100 mg oral capsule 1 capsule = 100 mg, By Mouth, 2 times a day, PRN for pain, # 60 capsule, 4 Refills, Maintenance, 08/12/23 15:29:00 EDT, Capsule, [facility]/pharmacy #0556, replaces ibuprofen, 155, cm, 08/12/23 15:09:00 EDT, [...] 11 Refills, Soft Stop, 03/14/23 15:31:00 EDT, [facility]/pharmacy #2476, Partial fill upon patient request if theprescription is for a schedule II opioid drug., 155... Start Date: 03/14/23 Status: Ordered ergocalciferol 87814 iu oral capsule 50,000 International_Units, 1, capsule, By Mouth, Every week, # 12 capsule, Refills 0, Tot. Refills0, Maintenance, 06/12/23 7:24:00 EDT, Route to Pharmacy Electronically, [facility]/pharmacy #2476, Partialfill upon patient request if [...] tablet, 3 Refills, Maintenance, 08/12/23 15:31:00 EDT, [facility]/pharmacy#2476, 155, cm, 08/12/23 15:09:00 EDT, Height, [...] Member Role: Primary Care Nurse Address: Address: [address] [place] [address] [address]- Name: Juju QIU, Talia Position: [facility] RN Member Role: Primary Care Nurse Name: Santi James MD Position: [facility] Physician - Primary Care Member Role: PCP Address: Address: [address] [place] [address] Adult & [place] [address]- Care Team Related Persons Name: PITER BAILEY Address: home [address] [place] [address] Name: DELMIS [place] Address: [place] [address] Name: RUPERT PALMER Address: home [address] [place] [address] Name: DESIRAE CHAUDHARY Address: home [address] [place], [place]
--- OUTSIDE RECORDS SUMMARY | 2024-07-15 15:45 | XMS_ITS | Continuity of Care Document ---
Author Organization [facility] Address [address] [place] [address]- Care Team Providers Care Cutter Hot Knife Name Role Phone Santi James MD Primary Care Physician [facility]): [facility]20 - 09/12/20 [facility] [address] [place], [place] [address] Attending Physician: Santi James MD Allergies, [...] in the fall 3Admin Note: done @ [facility], form received 4Result Comment: [id number] 5Result Comment: [08/31/2018] [id number] 6Result Comment: [08/24/2015] given w/out incident 7Admin Note: done @ [facility],form received 8Result Comment: [07/31/2015] [facility] 9Admin Note: done @ [facility] 10Admin Note: vis sheet given. 11Admin Note: work 12Admin Note: given at [facility] in [place] 13Admin Note: per pt, done at [facility] 14Admin Note: per pt 15Admin Note: [facility] Medications acetaminophen 650 mg oral tablet, extended release 1 tablet = 650 mg, By Mouth, Every 8 hours, PRN Pain , Moderate, for 30 days, # 90 tablet, 7 Refills, Acute 11/08/20 11:12:00 EST, 03/13/20 11:12:00 EDT, ER Tablet, [facility]/pharmacy #[id number], 156, cm, 03/13/20 10:31:00 EDT, Height, 78.8, kg, 12/20/19 10:35:0... Start Date: 03/13/20 Stop Date: 11/08/20 Status: Ordered albuterol 0.083% inhalation solution 3 mL = 2.5 mg, Inhalation, Every 6 hours, PRN for wheezing, Dx: asthma, # 100 each, 4 Refills, Maintenance, 12/01/19 12:54:00 EST, Solution, [facility]/pharmacy #[id number], 156, cm, 12/01/19 12:40:00 EST, Height, 79.6, kg, 03/10/19 14:10:00 EDT, Dry Weight Start Date: 12/01/19 Stop Date: 04/29/20 Status: Ordered albuterol CFC free 90 mcg/inh inhalation aerosol 2, puffs, Inhalation, Every 4 hours, PRN, # 9 Gm, Refills 0, Tot. Refills 0, Maintenance, 10/28/17 14:12:34, Aerosol, Route to Pharmacy Electronically, [id number], [facility]/pharmacy #1972, Compound Start Date: [...] days, # 20 tablet, 0 Refills, Acute 09/15/20 8:55:00 EST, 09/05/20 8:55:00 EST, Tablet, [facility]/pharmacy #[id number], 156, cm, 03/13/20 10:31:00 EDT, Height,78.8, kg, 12/20/19 10:35:00 EST, Dry Weight Start Date: 09/05/20 Stop Date: 09/15/20 Status: Ordered CPAP at 8mmHg CPAP at 8mmHg, See Instructions, # 1 each, Refills 0, Tot. Refills 0, Maintenance, DX: sleep apnea length of need 99 months, 01/20/18 15:26:44, Compound Start Date: 01/20/18 Status: Ordered FLUoxetine 20 mg oral capsule 20 mg, 1, capsule, By Mouth, Daily, # 90 capsule, Refills 1, Tot. Refills 1, Maintenance, 02/14/20 8:39:00 EDT, [id number] increase in dose, 156, cm, 12/23/19 13:03:00 EST, Height, 78.8, kg, 12/20/19 10:35:00... Start Date: 02/14/20 Stop Date: 04/14/20 Status: Ordered ipratropium nasal 21 mcg/inh spray 2 sprays, Nares, Both, 2 times a day, # 30 mL, 0 Refills, Maintenance, 07/25/20 16:52:00 EDT, [place], [facility]/pharmacy #2476, 2 sprays Nares, Both 2 times a day, 156, cm, 03/13/20 10:31:00 EDT, Height, 78.8, kg, 12/20/19 10:35:00 EST, Dry Weight Start Date: 07/25/20 Status: Ordered levothyroxine 0.05 mg oral tablet 1 tablet = 50 mcg, By Mouth, Daily, # 90 tablet, 3 Refills, Maintenance, 03/13/20 11:08:00 EDT, Tablet, [facility]/pharmacy #2476, 156, cm, 03/13/20 10:31:00 EDT, Height, 78.8, kg, 12/20/19 10:35:00 EST, Dry Weight Start Date: 03/13/20 Stop Date: 03/08/21 Status: Ordered montelukast 10 mg oral tablet 10 mg, 1, tablet, By Mouth, Daily, # 90 tablet, Refills 1, Tot. Refills 1, Maintenance, 03/08/20 9:54:00 EDT, Route to Pharmacy Electronically, [facility]/pharmacy #[id number], 156, cm, 12/23/19 13:03:00 EST, [...]
--- OUTSIDE RECORDS SUMMARY | 2024-07-15 15:45 | XMS_ITS | Continuity of Care Document ---
Author Organization [facility] Address [address] [place] [address]- Care Team Providers Care Gravel Truck Driver Name Role Phone Santi James MD Primary Care Physician [facility] 02[facility]16[facility]24 - 03/17/24 [facility] [address] [place], [place] [address] Allergies, Adverse Reactions, Alerts Substance Reaction Severity Status doxycycline Hives Active nitrofurantoin Pruritus Rash Active morphine Active Percocet Active predniSONE Anaphylaxis Active benzonatate Speech impediment Active Lopid Muscle cramps Myalgia and myositis unspecified Active Biaxin Upset stomach Active Demerol Active ezetimibe Breast painful Active [...] Note: given at [facility] in [place] 7Admin Note: per pt, done at [facility] 8Admin Note: done @ [facility], form received 9Admin Note: given at work 10Admin Note: given in the fall 11Result Comment: [id number] 12Result Comment: [08/31/2018] [id number] 13Result Comment: [08/24/2015] given w/out incident 14Admin [...] tablet, 3 Refills, Maintenance, 01/17/23 12:44:00 EDT, [facility] 95817, 156.15, cm, 11/29/22 14:40:00 EST, Height, 79.5, [...] 90 Unknown,1 Refills, Maintenance, 06/10/23 8:18:00 EDT, [facility] 56192, 90, USE 1 SPRAY IN BOTH NOSTRILS [...] Refills, Maintenance, 03/10/24 12:10:00 EDT, Tablet, [facility], Partial fill upon patient request if the prescription is for a schedule... Start Date: 03/10/24 Status: Ordered EpiPen 2-Tramaine 0.3 mg injectable kit = 0.3 mg, Intramuscular, Once, PRN Anaphylactic Reaction, may repeat if necessary, # 1 each, 11 Refills, Soft Stop, 03/14/23 15:31:00 EDT, [facility]/pharmacy #2476, Partial fill upon patient request if theprescription is for a schedule II opioid drug., 155... Start Date: 03/14/23 Status: Ordered fexofenadine 180 mg oral tablet 1 tablet = 180 mg, By Mouth, Daily, PRN for allergy symptoms, # 90 tablet, 4 Refills, Maintenance, 09/02/23 11:04:00 EDT, Tablet, [facility]/pharmacy #2476, Partial fill upon patient request if the prescription is for a schedule II opioid drug., 155, cm, ... Start Date: 09/02/23 Stop Date: 11/25/24 Status: Ordered ibuprofen 800 mg oral tablet 1, tablet, By Mouth, 3 times a day, X30 DAYS, STOP ASPIRIN WHILE TAKING THIS., # 90 tablet, Refills1, Maintenance, 12/04/23 7:25:00 EST, Route to Pharmacy Electronically, [facility] 37[facility], 155, cm, 11/18/23 16:29:00 EST, Height, 83.7, kg, 11/06/23 9:0... Start Date: 12/04/23 Status: Ordered levothyroxine 0.05 mg oral tablet 1 tablet, By Mouth, Daily, # 90 tablet, 3 Refills, Maintenance, 08/12/23 15:31:00 EDT, [facility]/pharmacy#2476, 155, cm, 08/12/23 15:09:00 EDT, Height, 83.9, kg, 03/13/23 4:46:00 EDT, Dry Weight Start Date: 08/12/23 Stop Date: 08/06/24 Status: Ordered montelukast 10 mg oral tablet 1, tablet, By Mouth, Daily, # 90 tablet, Refills 3, Maintenance, 11/23/23 8:40:00 EST, Route to Pharmacy Electronically, [facility] 24916, 155, cm, 11/18/23 16:29:00 EST, Height, 83.7, [...] Care Nurse Name: Juju QIU, Talia Position: [facility] RN Member Role: Primary Care Nurse Name: Darshan Benz RN Position: [facility] Outreach Member Role: Primary Care Nurse Name: Santi James MD Position: [facility] Physician - Primary Care Member Role: PCP Address: Address: [address] [place] [address] Adult & [place] [address]- Care Team Related Persons Name: PITER BAILEY Address: home [address] [place] [address] Name: DELMIS ADAMS Address: [address] [place], [place] Name: RUPERT PALMER Address: [address] [place], [place] Name: DESIRAE CHAUDHARY Address: home [address] [place], [place]
--- OUTSIDE RECORDS SUMMARY | 2024-07-15 15:45 | XMS_ITS | Continuity of Care Document ---
Author Organization [facility] Address [address] [place] [address]- Care Team Providers Care Excelsior Cutter Name Role Phone Santi James MD Primary Care Physician [facility] Date[facility] 06/[facility]/22 - 07/20/22 [facility] [address] [place], [place] [address] Allergies, Adverse Reactions, [...] Note: given at [facility] [place] 7Admin Note: per pt, done at [facility] 8Admin Note: done @ [facility], form received 9Admin Note: given at work 10Admin Note: given in the fall 11Result Comment: [id number] 12Result Comment: [08/31/2018] [id number] 13Result Comment: [08/24/2015] given w/out incident 14Admin Note: per pt 15Admin Note: [facility] Medications acetaminophen 650 mg oral tablet, extended release 1 tablet, By Mouth, Every 8 hours, PRN NEEDED FOR PAIN, # 90 tablet, 3 Refills, [facility] STORE 90528,156, cm, 04/04/22 7:36:00 EDT, Height, 78.9, kg, 04/04/22 7:36:00 EDT, Dry Weight Start Date: 04/08/22 Status: Ordered Albuterol (Eqv-ProAir HFA) 90 mcg/inh inhalation aerosol 2 puffs, Inhalation, Every 6 hours, PRN Wheezing/Shortness of Breath, # 6.7 Gm, 11 Refills, Maintenance, 02/26/22 9:18:00 EDT, [facility]/pharmacy #2476, Partial fill upon patient [...] each, 4 Refills, Maintenance, 02/07/22 12:08:00 EDT, [place], [facility]/pharmacy #2476, Partial fill upon patient request if the prescription is for a schedule II opioid drug., 1 sprays Nares... Start Date: 02/07/22 Stop Date: 07/07/22 Status: Ordered cetirizine 10 mg oral tablet 1 tablet, By Mouth, Daily, # 90 tablet, 3 Refills, [facility] STORE 32178, 156, cm, 03/18/22 8:26:00 EDT, Height Start [...] 0 Refills, Soft Stop, 06/20/22 13:59:00 EDT, Tablet,[facility]/pharmacy #0976, Partial fill upon patient request if the prescription is for a schedule II opioid drug., 155, cm, 06/06/22 11:17:00 EDT, Height, 79... Start Date: 06/20/22 Status: Ordered fluticasone 50 mcg/inh nasal spray See Instructions, USE 1 SPRAY IN EACH NOSTRL 2 TIMES A DAY X 5 DAYS, AND THEN DAILY THEREAFTER, # 48 mL, 1 Refills, [facility] STORE 80750, 90, USE 1 SPRAY IN EACH NOSTRL 2 TIMES A DAY X 5 DAYS, AND THEN DAILY THEREAFTER, 156, cm, 04/04/22 7:36:00 EDT, Heigh... Start Date: 04/30/22 Status: Ordered levothyroxine 0.05 mg oral tablet See Instructions, TAKE 1 TABLET BY MOUTH EVERY DAY, # 90 tablet, 1 Refills, [facility] STORE 44927, 156, cm, 02/07/22 11:31:00 EDT, Height Start Date: 02/19/22 Status: Ordered loratadine 10 mg oral tablet 10 mg, 1, tablet, By Mouth, Daily, # 30 tablet, Refills 11, Tot. Refills 11, Maintenance, 02/26/22 9:18:00 EDT, Route to Pharmacy Electronically, [facility]/pharmacy #[id number], Partial fill upon patient requestif [...] 9:18:00 EDT, Route to Pharmacy Electronically, [facility]/pharmacy #2476, Partial fill upon patient requestif [...] 9:18:00 EDT, Aerosol, Route to Pharmacy Electronically, [id number]... Start Date: 02/26/22 Status: Ordered Vitamin D3 [...] pack/packet, 0 Refills, Maintenance, 06/17/22 17:01:00 EDT, [facility]/pharmacy #2476, Partial fill upon patient [...] Personnel Name: Santi James MD Address: [address] [place] [address] [facility] [address]
--- OUTSIDE RECORDS SUMMARY | 2024-07-15 15:45 | XMS_ITS | Continuity of Care Document ---
Author Organization [facility] Address [address] [place] [address]- Care Team Providers Care Supervisor Insulation Name Role Phone Santi James MD Primary Care Physician [facility] Date[facility]s): 08/16/21 - 09/15/21 [facility] [address] [place], [place] [address] Attending Physician: Admtr, [...] 11/03/99 Given 1Admin Note: done @ [facility],form received 2Result Comment: [07/31/2015] [facility] 3Admin Note: done @ [facility] 4Admin Note: vis sheet given. 5Admin Note: work 6Admin Note: given at [facility] in [place] 7Admin Note: per pt, done at [facility] 8Admin Note: done @ [facility], form received 9Admin Note: given at work 10Admin Note: given in the fall 11Result Comment: [id number] 12Result Comment: [08/31/2018] [id number] 13Result Comment: [08/24/2015] given w/out incident 14Admin Note: per pt 15Admin Note: [facility] Medications acetaminophen 650 mg oral tablet, extended release 1 tablet = 650 mg, By Mouth, Every 8 hours, PRN Pain , Moderate, for 30 days, # 90 tablet, 7 Refills, Acute 10/24/21 12:47:00 EST, 02/26/21 12:47:00 EDT, ER Tablet, [facility] #[id number], 156, cm, 03/13/20 10:31:00 EDT, Height, 78.8, kg, ... Start Date: 02/26/21 Stop Date: 10/24/21 Status: Ordered albuterol 0.083% inhalation solution 3 mL = 2.5 mg, Inhalation, Every 6 hours, PRN for wheezing, Dx: asthma, # 100 each, 4 Refills, Maintenance, 12/01/19 12:54:00 EST, Solution, [facility]/pharmacy #2476, 156, cm, 12/01/19 12:40:00 EST, Height, 79.6, kg, 03/10/19 14:10:00 EDT, Dry Weight Start Date: 12/01/19 Stop Date: 04/29/20 Status: Ordered albuterol CFC free 90 mcg/inh inhalation aerosol 2, puffs, Inhalation, Every 4 hours, PRN, # 1 each, Refills 3, Tot. Refills 3, Maintenance, 03/13/21 8:25:00 EDT, Aerosol, Route to Pharmacy Electronically, [id number], [facility] #[id number], 156, cm, 03/13/21 8:16:00 E... Start Date: [...] 3 Refills, Maintenance, 03/13/21 8:26:00 EDT, Tablet, [facility] #25744, 156, cm, 03/13/21 8:16:00 EDT, Height, 78.8, [...] 16 Gm,0 Refills, Maintenance, 08/02/21 11:22:00 EDT, [place], [facility] #46995, Partial fill upon patient request if the prescription is for a sched... Start Date: 08/02/21 Status: Ordered ipratropium nasal 21 mcg/inh spray 2 sprays, Nares, Both, 2 times a day, # 30 mL, 0 Refills, Maintenance, 07/25/20 16:52:00 EDT, [place], [facility]/pharmacy #3876, 2 sprays Nares, Both 2 times a day, 156, cm, 03/13/20 10:31:00 EDT, Height, 78.8, kg, 12/20/19 10:35:00 EST, Dry Weight Start Date: 07/25/20 Status: Ordered levothyroxine 0.05 mg oral tablet 1 tablet = 50 mcg, By Mouth, Daily, # 90 tablet, 3 Refills, Maintenance, 03/13/21 8:24:00 EDT, Tablet, [facility] #24168, 156, cm, 03/13/21 8:16:00 EDT, Height, 78.8, kg, 12/20/19 10:35:00 EST, Dry Weight Start Date: 03/13/21 Stop Date: 03/08/22 Status: Ordered montelukast 10 mg oral tablet See Instructions, TAKE 1 TABLET BY MOUTH DAILY, # 90 tablet, Refills 1, Instructions Replace Required Details, Route to Pharmacy Electronically, [facility] #25356, 156, cm, 03/13/21 8:35:00EDT, Height, 78.8, kg, [...] 9:38:00 EDT, Aerosol, Route to Pharmacy Electronically, [id number]... Start Date: 09/04/21 Status: Ordered Zithromax Z-Tramaine 250 mg oral tablet See Instructions, as directed on package labeling, # 1 pack/packet, 0 Refills, Maintenance, 08/16/21 16:24:00 EDT, [facility]/pharmacy #3296, Partial fill upon patient request if the [...]
--- OUTSIDE RECORDS SUMMARY | 2024-07-15 15:45 | XMS_ITS | Continuity of Care Document ---
Author Organization [facility] Address [address] [place] [address]- Care Team Providers Care Cooper Apprentice Name Role Phone Jacob DORAN, Santi Primary Care Physician [facility] Date[facility]s): 06/06/23 - 07/06/23 [facility] [address] [place], [place] [address] Allergies, Adverse Reactions, [...] 6Admin Note: given at [facility] 7Admin Note: per pt, done at [facility] 8Admin Note: done @ [facility], form received 9Admin Note: given at work 10Admin Note: given in the fall 11Result Comment: [id number] 12Result Comment: [08/31/2018] [id number] 13Result Comment: [08/24/2015] given w/out incident 14Admin Note: per pt 15Admin Note: [facility] Medications acetaminophen 650 mg oral tablet, extended release 1 tablet, By Mouth, Every 8 hours, PRN NEEDED FOR PAIN, # 90 tablet, 3 Refills, Maintenance, 01/17/23 12:44:00 EDT, [facility], 156.15, cm, 11/29/22 14:40:00 EST, Height, 79.5, [...] Refills, Maintenance, 06/10/23 8:18:00 EDT, [facility], 90, USE 1 SPRAY IN BOTH NOSTRILS [...] Refills, Soft Stop, 03/14/23 15:31:00 EDT, [facility]/pharmacy #2476, Partial fill upon patient request if theprescription is for a schedule II opioid drug., 155... Start Date: 03/14/23 Status: Ordered ergocalciferol 90839 iu oral capsule 50,000 International_Units, 1, capsule, By Mouth, Every week, # 12 capsule, Refills 0, Tot. Refills0, Maintenance, 06/12/23 7:24:00 EDT, Route to Pharmacy Electronically, [facility]/pharmacy #2476, Partialfill upon patient request if the [...] tablet, 1 Refills, Maintenance, 03/01/23 14:21:00 EDT, [facility] STORE 95309, 156.15, cm, 11/29/22 14:40:00 EST, Height, 79.5, [...] 4 Refills, Maintenance, 03/28/23 13:04:00 EDT, Aerosol, [facility]/pharmacy #0718, replaced Proventil that is not available, 155, [...] Personnel Name: Justa HARRIS, Geni Orlando Position: [facility] Associate Professional Member Role: Primary Care Nurse Address: Address: [address] [facility] [place] [address]- [place] Name: Talia Matute RN Position: [facility] RN Member Role: Primary Care Nurse Name: Santi James MD Position: [facility] Physician - Primary Care Member Role: PCP Address: Address: [address] [place] [address]- Care Team Related Persons Name: PITER BAILEY Address: home [address] [place] [address] Name: DELMIS ADAMS Address: [place] [address] Name: RUPERT PALMER Address: [address] [place] [address] Name: DESIRAE CHAUDHARY Address: [address] [place] [address]
--- OUTSIDE RECORDS SUMMARY | 2024-07-15 15:45 | XMS_ITS | Continuity of Care Document ---
Author Organization [facility] Address [address] [place] [address]- Care Team Providers Care Police Cadet Name Role Phone Santi James MD Primary Care Physician Encounter [facility] Date(s): 03/10/20 - 04/09/20 [facility] [address] [place] [address]- [facility] Attending Physician: Ken Galarza Admitting Physician: Ken Galarza Referring Physician: AdmKen hwang Allergies, Adverse Reactions, Alerts Substance Reaction Severity [...] in the fall 3Admin Note: done @ [facility], form received 4Result Comment: [id number] 5Result Comment: [08/31/2018] [id number] 6Result Comment: [08/24/2015] given w/out incident 7Admin Note: done @ [facility],form received 8Result Comment: [07/31/2015] [facility] 9Admin Note: done @ [facility] 10Admin Note: vis sheet given. 11Admin Note: work 12Admin Note: given at [facility] in [place] 13Admin Note: per pt, done at [facility] 14Admin Note: per pt 15Admin Note: [facility] Medications acetaminophen 650 mg oral tablet, extended release 1 tablet = 650 mg, By Mouth, Every 8 hours, PRN Pain , Moderate, for 30 days, # 90 tablet, 7 Refills, Acute 11/08/20 11:12:00 EST, 03/13/20 11:12:00 EDT, ER Tablet, [facility]/pharmacy #2476, 156, cm, 03/13/20 10:31:00 EDT, Height, 78.8, kg, 12/20/19 10:35:0... Start Date: 03/13/20 Stop Date: 11/08/20 Status: Ordered Aerochamber See Instructions, # 1 units, Refills 0, Tot. Refills 0, Maintenance, use with your inhalers Dx: asthma, 10/28/17 13:45:11, Compound Start Date: 10/28/17 Status: Ordered albuterol 0.083% inhalation solution 3 mL = 2.5 mg, Inhalation, Every 6 hours, PRN for wheezing, Dx: asthma, # 100 each, 4 Refills, Maintenance, 12/01/19 12:54:00 EST, Solution, [facility]/pharmacy #2476, 156, cm, 12/01/19 12:40:00 EST, Height, 79.6, kg, 03/10/19 14:10:00 EDT, Dry Weight Start Date: 12/01/19 Stop Date: 04/29/20 Status: Ordered albuterol CFC free 90 mcg/inh inhalation aerosol 2, puffs, Inhalation, Every 4 hours, PRN, # 9 Gm, Refills 0, Tot. Refills 0, Maintenance, 10/28/17 14:12:34, Aerosol, Route to Pharmacy Electronically, [id number], [facility]/pharmacy #1972, Compound Start Date: 10/28/17 Status: [...] 02/14/20 8:39:00 EDT, Route to Pharmacy Electronically, [facility]/pharmacy #2476, increase in dose, 156, cm, 12/23/19 13:03:00 EST, Height, 78.8, kg, 12/20/19 10:35:00... Start Date: 02/14/20 Stop Date: 04/14/20 Status: Ordered levothyroxine 0.05 mg oral tablet 1 tablet = 50 mcg, By Mouth, Daily, # 90 tablet, 3 Refills, Maintenance, 03/13/20 11:08:00 EDT, Tablet, [facility]/pharmacy #2476, 156, cm, 03/13/20 10:31:00 EDT, Height, 78.8, kg, 12/20/19 10:35:00 EST, Dry Weight Start Date: 03/13/20 Stop Date: 03/08/21 Status: Ordered mask, tubing,filters, head gear, chin [...] 03/08/20 9:54:00 EDT, Route to Pharmacy Electronically, [facility]/pharmacy #2476, 156, cm, 12/23/19 13:03:00 EST, [...]
--- OUTSIDE RECORDS SUMMARY | 2024-07-15 15:45 | XMS_ITS | Continuity of Care Document ---
Author Organization [facility] Address [address] [place] [address]- Care Team Providers Care Dock Associate Name Role Phone Santi James MD Primary Care Physician Encounter [facility] Date(s): 12/28/20 - 01/27/21 [facility] [address] [place], [place] [address] Allergies, Adverse Reactions, Alerts Substance [...] in the fall 3Admin Note: done @ [facility], form received 4Result Comment: [id number] 5Result Comment: [08/31/2018] [id number] 6Result Comment: [08/24/2015] given w/out incident 7Admin Note: done @ [facility],form received 8Result Comment: [07/31/2015] [facility] 9Admin Note: done @ [facility] 10Admin Note: vis sheet given. 11Admin Note: work 12Admin Note: given at [facility] in [place] 13Admin Note: per pt, done at [facility] [...] 10/28/17 14:12:34, Aerosol, Route to Pharmacy Electronically, [id number], [facility]/pharmacy #1972, Compound Start Date: 10/28/17 Status: [...] 5 Refills, Maintenance, 10/10/20 12:10:00 EST, Tablet, [facility]/pharmacy #2476, 156, cm, 03/13/20 10:31:00 EDT, [...] 10/05/20 15:45:00 EST, Route to Pharmacy Electronically, [facility] STORE 24054, 156, cm, 03/13/20 10:31:00 EDT, Height, 78.8, kg, 12/20/19 10:35:00 EST, Dry Weight Start Date: 10/05/20 Status: Ordered ipratropium nasal 21 mcg/inh spray 2 sprays, Nares, Both, 2 times a day, # 30 mL, 0 Refills, Maintenance, 07/25/20 16:52:00 EDT, [place], [facility]/pharmacy #2476, 2 sprays Nares, Both 2 times a day, 156, cm, 03/13/20 10:31:00 EDT, Height, 78.8, kg, 12/20/19 10:35:00 EST, Dry Weight Start Date: 07/25/20 Status: Ordered levothyroxine 0.05 mg oral tablet 1 tablet = 50 mcg, By Mouth, Daily, # 90 tablet, 3 Refills, Maintenance, 03/13/20 11:08:00 EDT, Tablet, [facility]/pharmacy #2476, 156, cm, 03/13/20 10:31:00 EDT, Height, 78.8, kg, 12/20/19 10:35:00 EST, Dry Weight Start Date: 03/13/20 Stop Date: 03/08/21 Status: Ordered montelukast 10 mg oral tablet 1, tablet, By Mouth, Daily, # 90 tablet, Refills 2, Tot. Refills 0, Maintenance, 10/05/20 15:45:00 EST, Route to Pharmacy Electronically, [facility] STORE 70887, 156, cm, 03/13/20 10:31:00 EDT, Height, 78.8, [...] each, 0 Refills, Maintenance, 09/14/20 8:47:00 EST, [facility]/pharmacy #2476, 1 puffs Inhalation 2 times [...]
--- OUTSIDE RECORDS SUMMARY | 2024-07-15 15:45 | XMS_ITS | Continuity of Care Document ---
Author Organization [facility] Address [address] [place] [address]- Care Team Providers Care Furnace Maintenance Name Role Phone Santi James MD Primary Care Physician [facility] Date[facility]s): 12/09/19 - 12/09/[address] [address]- [facility] Attending Physician: Santi James MD Allergies, Adverse [...] in the fall 3Admin Note: done @ [facility], form received 4Result Comment: [id number] 5Result Comment: [08/31/2018] [id number] 6Result Comment: [08/24/2015] given w/out incident 7Admin Note: done @ [facility],form received 8Result Comment: [07/31/2015] [facility] 9Admin Note: done @ [facility] 10Admin Note: vis sheet given. 11Admin Note: work 12Admin Note: given at [facility] 13Admin Note: per pt, done at [facility] 14Admin Note: per pt 15Admin Note: [facility] Medications acetaminophen 650 mg oral tablet, extended release 1 tablet = 650 mg, By Mouth, Every 8 hours, PRN as needed for pain, for 30 days, # 100 tablet, 1 Refills, Acute 02/01/20 11:16:00 EDT, 12/03/19 11:16:00 EST, ER Tablet, [facility]/pharmacy #2476, 156, cm, 12/03/19 [...] 4 Refills, Maintenance, 12/01/19 12:54:00 EST, Solution, [facility]/pharmacy #2476, 156, cm, 12/01/19 12:40:00 EST, Height, 79.6, kg, 03/10/19 14:10:00 EDT, Dry Weight Start Date: 12/01/19 Stop Date: 04/29/20 Status: Ordered albuterol CFC free 90 mcg/inh inhalation aerosol 2, puffs, Inhalation, Every 4 hours, PRN, # 9 Gm, Refills 0, Tot. Refills 0, Maintenance, 10/28/17 14:12:34, Aerosol, Route to Pharmacy Electronically, [id number], [facility]/pharmacy #1972, Compound Start Date: [...] 12/11/19 12:54:00 EST, 12/01/19 12:54:00 EST, Tablet, [facility]/pharmacy #2476, replaces doxycycline which gave her hives, [...] 08/16/19 14:35:23 EDT, Route to Pharmacy Electronically, [id number], [facility]/pharmacy #0626, increase in dose Start Date: 08/16/19 Stop [...] 09/13/19 13:49:27 EST, Route to Pharmacy Electronically, [id number], [facility]/pharmacy #2476 Start Date: 09/13/19 [...]
--- OUTSIDE RECORDS SUMMARY | 2024-07-15 15:45 | XMS_ITS | Continuity of Care Document ---
Author Organization [facility] Address [address] [place] [address]- Care Team Providers Care Dry Man Name Role Phone Santi James MD Primary Care Physician [facility] Date[facility]s): 10/03/23 - 11/02/23 [facility] [address] [place], [place] [address] Allergies, Adverse Reactions, Alerts Substance [...] 6Admin Note: given at [facility] in [place] 7Admin Note: per pt, done at [facility] 8Admin Note: done @ [facility], form received 9Admin Note: given at work 10Admin Note: given in the fall 11Result Comment: [id number] 12Result Comment: [08/31/2018] [id number] 13Result Comment: [08/24/2015] given w/out incident 14Admin [...] Refills, Maintenance, 01/17/23 12:44:00 EDT, [facility], 156.15, cm, 11/29/22 14:40:00 EST, Height, 79.5, [...] 90 Unknown,1 Refills, Maintenance, 06/10/23 8:18:00 EDT, [facility] 601[facility], 90, USE 1 SPRAY IN BOTH NOSTRILS [...] Refills, Soft Stop, 03/14/23 15:31:00 EDT, [facility], Partial fill upon patient request if theprescription [...] Refills, Maintenance, 10/28/23 10:28:00 EST, Tablet, [facility], Partial fill upon patient request if the [...] Personnel Name: Justa HARRIS, Geni Orlando Position: [facility] Associate Professional Member Role: Primary Care Nurse Address: Address: [address] [place] [address]- Name: Talia Matute RN Position: [facility] RN Member Role: Primary Care Nurse Name: Santi James MD Position: [facility] Physician - Primary Care Member Role: PCP Address: Address: [address] [place] [address] Adult [facility] [place] [address]- Care Team Related Persons Name: PITER BAILEY Address: home [address] [place] [address] Name: DELMIS ADAMS Address: home [address] [place], [place] Name: RUPERT PALMER Address: home [address] [place], [place] Name: DESIRAE CHAUDHARY Address: [address] [address]
--- OUTSIDE RECORDS SUMMARY | 2024-07-15 15:45 | XMS_ITS | Continuity of Care Document ---
Author Organization [facility] Address [address] [place] [address]- Care Team Providers Care Marketing Officer Name Role Phone Santi James MD Primary Care Physician [facility] Date[facility]): 08/08/22 - 09/07/22 [facility] [address] [place], [place] [address] Attending Physician: Admtr, Ar8 Allergies, Adverse Reactions, Alerts Substance Reaction Severity Status doxycycline Hives Active morphine Active benzonatate Speech impediment Active Percocet Active Biaxin Upset stomach Active Lipitor Myalgia unspecified Muscle cramps Active nitrofurantoin Pruritus Rash Active Lopid Muscle cramps Myalgia and myositis unspecified Active Levaquin Hives Active Demerol Active Immunizations [...] 07/01/14 Gi cristel influenza virus vaccine, inactivated 07/02/12 Gi cristel influenza virus vaccine, inactivated [...] @ [facility],form received 2Result Comment: [07/31/2015] [facility] 3Admin Note: done @ [facility] 4Admin Note: vis sheet given. 5Admin Note: work 6Admin Note: given at [facility] 7Admin Note: per pt, done at [facility] 8Admin Note: done @ [facility], form received 9Admin Note: given at work 10Admin Note: given in the fall 11Result Comment: [id number] 12Result Comment: [08/31/2018] [id number] 13Result Comment: [08/24/2015] given w/out incident 14Admin Note: per pt 15Admin Note: [facility] Medications acetaminophen 650 mg oral tablet, extended release 1 tablet, By Mouth, Every 8 hours, PRN NEEDED FOR PAIN, # 90 tablet, 3 Refills, [facility], cm, 04/04/22 7:36:00 EDT, Height, 78.9, kg, [...] each, 4 Refills, Maintenance, 02/07/22 12:08:00 EDT, [place], [id number], Partial fill upon patient request if the prescription is for a schedule II opioid drug., 1 sprays Nares... Start Date: 02/07/22 Stop Date: 07/07/22 Status: Ordered cephalexin monohydrate 250 mg oral capsule 1 capsule = 250 mg, By Mouth, 3 times a day, for 7 days, # 21 capsule, 0 Refills, Acute 09/12/22 11:18:00 EST, 09/05/22 11:18:00 EDT, Capsule, [id number], Partial fill upon patient request ifthe prescription is for a schedule II opioid drug.,... Start Date: 09/05/22 Stop Date: 09/12/22 Status: Ordered cetirizine 10 mg oral tablet 1 tablet, By Mouth, Daily, # 90 tablet, 3 Refills, [facility], 156, cm, 03/18/22 8:26:00 EDT, Height Start [...] 0 Refills, Soft Stop, 08/08/22 13:22:00 EDT, Tablet,[facility]/pharm[facility] #[id number], Partial fill upon patient request if the prescription is for a schedule II opioid drug., 155, cm, 06/06/22 11:17:00 EDT, Height, 79... Start Date: 08/08/22 Status: Ordered fluticasone 50 mcg/inh nasal spray See Instructions, USE 1 SPRAY IN EACH NOSTRL 2 TIMES A DAY X 5 DAYS, AND THEN DAILY THEREAFTER, # 16 Gm, 11 Refills, 08/29/22 9:07:00 EDT, [id number], USE 1 SPRAY IN EACH NOSTRL 2 TIMES A DAYX 5 DAYS, AND THEN DAILY THEREAFTER, 156.15, cm, 10... Start Date: 08/29/22 Status: Ordered levothyroxine 0.05 mg oral tablet See Instructions, TAKE 1 TABLET BY MOUTH EVERY DAY, # 90 tablet, 1 Refills, 09/01/22 19:54:00 EDT, [id number], 156.15, cm, 08/29/22 8:44:00 EDT, Height, 79.5, kg, 06/06/22 11:17:00 EDT, Dry Weight Start Date: 09/01/22 Status: Ordered loratadine 10 mg oral tablet 10 mg, 1, tablet, By Mouth, Daily, # 30 tablet, Refills 11, Tot. Refills 11, Maintenance, 08/29/22 9:07:00 EDT, Route to Pharmacy Electronically, [facility]/pharmacy #[id number], Partial fill upon patient requestif [...] Route to Pharmacy Electronically, [facility]/pharmacy #[id number], Partial fill upon patient requestif the prescription is for a schedule II opioid lauro... Start Date: 08/29/22 Status: Ordered Symbicort 160mcg/4.5mcg Inhaler 2, puffs, Inhalation, 2 times a day, in the morning and the evening use with spacer chamber rinse mouth and throat after use, # 1 each, Refills 11, Tot. Refills 11, Maintenance, 08/29/22 9:07:00 EDT,Aerosol, Route to Pharmacy Electronically, [id number]... Start Date: 08/29/22 Status: Ordered Vitamin D3 1000 intl units [...] pack/packet, 0 Refills, Maintenance, 08/08/22 13:22:00 EDT, [id number], Partial fill upon patient request if the [...] AM) Body Mass Index [18.50-24.99] 30.06 *>HHI* (1/16/09 8:51 AM) Blood Pressure [90-138/55-84 mm Hg] 132/ 74mm Hg (11/18/08 8:51 AM) Respiratory Rate [16-30 br/min] 16 br/mi n (11/18/08 8:51 AM) Blood pressure sites Arm, right (11/18/08 8:51 AM) Social History Social History Type Response Smoking Status Never smoker entered on: 10/12/14 Sex Patient Care team information Personnel Name: Santi James MD Address: Address: [address] [place] [address] Adult & Pediatric Medicine [place], [place] [address]
--- OUTSIDE RECORDS SUMMARY | 2024-07-15 15:45 | XMS_ITS | Continuity of Care Document ---
Author Organization [facility] Address [address] [place] [address]- Care Team Providers Care Clothing Worker Name Role Phone Santi James MD Primary Care Physician [facility] Date[facility]s): 12/09/19 - 12/16/19 [facility] [address] [place] [address]- [facility] Attending Physician: Santi James MD Allergies, [...] in the fall 3Admin Note: done @ [facility], form received 4Result Comment: [id number] 5Result Comment: [08/31/2018] [id number] 6Result Comment: [08/24/2015] given w/out incident 7Admin Note: done @ [facility],form received 8Result Comment: [07/31/2015] [facility] 9Admin Note: done @ [facility] 10Admin Note: vis sheet given. 11Admin Note: work 12Admin Note: given at [facility] 13Admin Note: per pt, done at [facility] 14Admin Note: per pt 15Admin Note: [facility] Medications acetaminophen 650 mg oral tablet, extended release 1 tablet = 650 mg, By Mouth, Every 8 hours, PRN as needed for pain, for 30 days, # 100 tablet, 1 Refills, Acute 02/01/20 11:16:00 EDT, 12/03/19 11:16:00 EST, ER Tablet, [facility]/pharmacy #[id number], 156, cm, 12/03/19 [...] 4 Refills, Maintenance, 12/01/19 12:54:00 EST, Solution, [facility]/pharmacy #[id number], 156, cm, 12/01/19 12:40:00 EST, Height, 79.6, kg, 03/10/19 14:10:00 EDT, Dry Weight Start Date: 12/01/19 Stop Date: 04/29/20 Status: Ordered albuterol CFC free 90 mcg/inh inhalation aerosol 2, puffs, Inhalation, Every 4 hours, PRN, # 9 Gm, Refills 0, Tot. Refills 0, Maintenance, 10/28/17 14:12:34, Aerosol, Route to Pharmacy Electronically, [id number], [facility]/pharmacy #1972, Compound Start Date: [...] 08/16/19 14:35:23 EDT, Route to Pharmacy Electronically, [id number], [facility]/pharmacy #[id number], increase in dose [...] 09/13/19 13:49:27 EST, Route to Pharmacy Electronically, [id number], [facility]/pharmacy #[id number] Start Date: 09/13/19 Stop [...] # 37 tablet, 0 Refills, Soft Stop, 12/16/19 14:27:00 EST, Tablet, [id number], 156, cm, 12/09/19 10:29:00 EST, Height, 79.6, kg, 03/10... Start Date: 12/16/19 Status: Ordered Problem List Condition Effective Dates [...] oldest [Reference Range]: 1 Height 156 cm (12/09/19 10:29 AM) Weight 79.0 kg (12/09/19 10:29 AM) Oxygen Saturation [94-100 %] 96 % (12/09/19 10:29 AM) Pulse Rate [55-90 bpm] 61 bpm (12/09/19 10:29 AM) Body Mass Index [18.5-24.99] 32.46 *>HHI* (12/09/19 10:29 AM) Blood Pressure [90-138/55-84 mm Hg] 138/ 82mm Hg (12/09/19 10:29 AM) Temperature [96.8-100.4 DegF] 98.0 DegF (12/09/19 10:29 AM) Mode of Delivery (Oxygen) Room air (12/09/19 10:29 AM) Blood pressure sites Arm, left (12/09/19 10:29 AM) Temperature Route Oral (12/09/19 10:29 AM) Social History Social History Type Response Smoking Status Never smoker entered on: 10/12/14 Sex
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
--- OUTSIDE RECORDS SUMMARY | 2024-07-15 15:45 | XMS_ITS | Continuity of Care Document ---
Author Organization [facility] Address [address] [place] [address]- Care Team Providers Care Kinesiology Professor Name Role Phone Santi James MD Primary Care Physician [facility] Date[facility]s): 04/15[facility]23 - 05/15/23 [facility] [address] [place], [place] [address] Allergies, Adverse Reactions, Alerts Substance Reaction Severity Status morphine Active predniSONE Anaphylaxis Active Percocet Active doxycycline Hives Active nitrofurantoin [...] (Td) 11/03/99 Given 1Admin Note: done @ [facility],form received 2Result Comment: [07/31/2015] [facility] 3Admin Note: done @ [facility] 4Admin Note: vis sheet given. 5Admin Note: work 6Admin Note: given at [facility] [place] 7Admin Note: per pt, done at [facility] 8Admin Note: done @ [facility], form received 9Admin Note: given at work 10Admin Note: given in the fall 11Result Comment: [id number] 12Result Comment: [08/31/2018] [id number] 13Result Comment: [08/24/2015] given w/out incident 14Admin Note: per pt 15Admin Note: [facility] Medications acetaminophen 650 mg oral tablet, extended release 1 tablet, By Mouth, Every 8 hours, PRN NEEDED FOR PAIN, # 90 tablet, 3 Refills, Maintenance, 01/17/23 12:44:00 EDT, [facility], 156.15, cm, 11/29/22 14:40:00 EST, Height, 79.5, [...] each, 10 Refills, Maintenance, 11/25/22 15:18:00 EST, [place], [facility]/pharmacy #2476, replaces 0.15% dose, 1 sprays [...] Soft Stop, 03/14/23 15:31:00 EDT, [facility]/pharmacy #2476, Partial fill upon patient request if theprescription is for a schedule II opioid drug., 155... Start Date: 03/14/23 Status: Ordered ergocalciferol 08521 iu oral capsule 50,000 International_Units, 1, capsule, By Mouth, Every week, # 12 capsule, Refills 0, Tot. Refills0, Maintenance, 04/10/23 9:13:00 EDT, Route to Pharmacy Electronically, [facility]/pharmacy #2476, Partialfill upon patient request if [...] Refills, Maintenance, 03/01/23 14:21:00 EDT, [facility], 156.15, cm, 11/29/22 14:40:00 EST, Height, 79.5, [...] 4 Refills, Maintenance, 03/28/23 13:04:00 EDT, Aerosol, [facility]/pharmacy #2476, replaced Proventil that is not [...] Member Role: Primary Care Nurse Address: Address: [address] [place] [address]- [place] Name: Talia Matute RN Position: [facility] RN Member Role: Primary Care Nurse Name: Santi James MD Position: [facility] Physician - Primary Care Member Role: PCP Address: Address: [address] [place] [address] Adult & [place] [address]- Care Team Related Persons Name: PITER BAILEY Address: home [address] [place] [id number] Name: DELMIS ADAMS Address: home [place], [place] Name: RUPERT PALMER Address: home [address] [place], [place] Name: DESIRAE CHAUHDARY Address: home [address] [place], [place]
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
--- OUTSIDE RECORDS SUMMARY | 2024-07-15 15:46 | XMS_ITS | Continuity of Care Document ---
Author Organization [facility] Address [address] [place] [address]- Care Team Providers Care Instructional Support Services Director Name Role Phone Santi James MD Primary Care Physician Encounter [facility] Date(s): 08/30/22 - 09/29/[address] [address]- Attending Physician: Ken Galarza Admitting Physician: AdmtrKen Referring Physician: Admtr, Ar8 Allergies, Adverse Reactions, Alerts Substance Reaction Severity Status morphine Active Percocet Active Lipitor Myalgia unspecified Muscle cramps Active doxycycline Hives Active nitrofurantoin Pruritus Rash Active benzonatate Speech impediment Active Lopid Muscle cramps Myalgia and myositis unspecified Active Biaxin Upset stomach Active Levaquin Hives Active Demerol Active Immunizations [...] @ [facility],form received 2Result Comment: [07/31/2015] [facility] 3Admin Note: done @ [facility] 4Admin Note: vis sheet given. 5Admin Note: work 6Admin Note: given at [facility] [place] 7Admin Note: per pt, done at [facility] 8Admin Note: done @ [facility], form received 9Admin Note: given at work 10Admin Note: given in the fall 11Result Comment: [id number] 12Result Comment: [08/31/2018] [id number] 13Result Comment: [08/24/2015] given w/out incident 14Admin Note: per pt 15Admin Note: [facility] Medications acetaminophen 650 mg oral tablet, extended release 1 tablet, By Mouth, Every 8 hours, PRN NEEDED FOR PAIN, # 90 tablet, 3 Refills, [facility] 91988,156, cm, 04/04/22 7:36:00 EDT, Height, 78.9, kg, 04/04/22 7:36:00 EDT, Dry Weight Start Date: 04/08/22 Status: Ordered Albuterol (Eqv-ProAir HFA) 90 mcg/inh inhalation aerosol 2 puffs, Inhalation, Every 6 hours, PRN Wheezing/Shortness of Breath, # 6.7 Gm, 11 Refills, Maintenance, 08/29/22 9:07:00 EDT, [facility]/pharmacy #2476, Partial fill upon patient [...] each, 4 Refills, Maintenance, 02/07/22 12:08:00 EDT, [place], [facility]/pharmacy #2476, Partial fill upon patient request if the prescription is for a schedule II opioid drug., 1 sprays Nares... Start Date: 02/07/22 Stop Date: 07/07/22 Status: Ordered cetirizine 10 mg oral tablet 1 tablet, By Mouth, Daily, # 90 tablet, 3 Refills, [facility] 8[facility]27, 156, cm, 03/18/22 8:26:00 EDT, Height Start [...] 16 Gm, 11 Refills, 08/29/22 9:07:00 EDT, [facility]/pharmacy #2476, USE 1 SPRAY IN EACH NOSTRL 2 TIMES A DAYX 5 DAYS, AND THEN DAILY THEREAFTER, 156.15, cm, 10... Start Date: 08/29/22 Status: Ordered levothyroxine 0.05 mg oral tablet See Instructions, TAKE 1 TABLET BY MOUTH EVERY DAY, # 90 tablet, 1 Refills, 09/01/22 19:54:00 EDT, [facility]/pharmacy #2476, 156.15, cm, 08/29/22 8:44:00 EDT, Height, 79.5, kg, 06/06/22 11:17:00 EDT, Dry Weight Start Date: 09/01/22 Status: Ordered loratadine 10 mg oral tablet 10 mg, 1, tablet, By Mouth, Daily, # 30 tablet, Refills 11, Tot. Refills 11, Maintenance, 08/29/22 9:07:00 EDT, Route to Pharmacy Electronically, [facility]/pharmacy #2476, Partial fill upon patient [...] 08/29/22 9:07:00 EDT, Route to Pharmacy Electronically, [facility]/pharmacy #2476, Partial fill upon patient [...] labeling, # 1 pack/packet, 0 Refills, Maintenance, 09/23/22 9:15:00 EST, [facility], Partial fill upon patient request if the prescription is for a schedule II opioid drug., 156.15, cm, 08/29/22 8:44:00... Start Date: 09/23/22 Status: Ordered Problem List Condition Confirmation Course [...] Role: Primary Care Nurse Address: Address: [address], [place] [address] Name: Santi James MD Position: [facility] Primary Care Physician Member Role: PCP Address: Address: [address] [place] [address] Adult & Pediatric Medicine [place], [place] [address] Care Team Related Persons Name: PITER BAILEY Address: home [address] [place] [address] Name: DELMIS ADAMS Address: home [place], [place] Name: RUPERT PALMER Address: home [address] [place], [place] Name: DESIRAE CHAUDHARY Address: home [address] [place], [place]
--- OUTSIDE RECORDS SUMMARY | 2024-07-15 15:46 | XMS_ITS | Continuity of Care Document ---
Author Organization [facility] Address [address] [place] [address]- Care Team Providers Care Master Planner Name Role Phone Jacob DORAN, Santi Primary Care Physician [facility]counter [facility] Date(s): 09/23/23 - 10/23/23 [facility] [address] [place], [place] [address] Allergies, Adverse Reactions, Alerts Substance [...] 6Admin Note: given at [facility] in [place] 7Admin Note: per pt, done at [facility] 8Admin Note: done @ [facility], form received 9Admin Note: given at work 10Admin Note: given in the fall 11Result Comment: [id number] 12Result Comment: [08/31/2018] [id number] 13Result Comment: [08/24/2015] given w/out incident 14Admin [...] tablet, 3 Refills, Maintenance, 01/17/23 12:44:00 EDT, [facility] 19884, 156.15, cm, 11/29/22 14:40:00 EST, Height, 79.5, [...] 90 Unknown,1 Refills, Maintenance, 06/10/23 8:18:00 EDT, [facility] 09018, 90, USE 1 SPRAY IN BOTH NOSTRILS [...] 11 Refills, Soft Stop, 03/14/23 15:31:00 EDT, [facility]/pharmacy #7762, Partial fill upon patient request if theprescription is for a schedule II opioid drug., 155... Start Date: 03/14/23 Status: Ordered ergocalciferol 09370 iu oral capsule 50,000 International_Units, 1, capsule, By Mouth, Every week, # 12 capsule, Refills 0, Tot. Refills0, Maintenance, 06/12/23 7:24:00 EDT, [facility] Partial[facility] upon patient request if the prescription is fo... Start Date: 06/12/23 Stop Date: 09/04/23 Status: Ordered fexofenadine 180 mg oral tablet 1 tablet = 180 mg, By Mouth, Daily, PRN for allergy symptoms, # 90 tablet, 4 Refills, Maintenance, 09/02/23 11:04:00 EDT, Tablet, [facility]/pharmacy #2476, Partial fill [...] Refills, Soft Stop, 10/03/23 16:14:00 EST, Tablet, [facility]/pharmacy #2476, Partial fill upon patient request if the prescription is for a schedule II opioid... Start Date: 10/03/23 Status: Ordered levothyroxine 0.05 mg oral tablet 1 tablet, By Mouth, Daily, # 90 tablet, 3 Refills, Maintenance, 08/12/23 15:31:00 EDT, [facility]/pharmacy#2476, 155, cm, 08/12/23 [...] Soft Stop, 09/30/23 11:01:00 EST, Tablet, [facility], pt has taken t his medication in [...] Personnel Name: Justa HARRIS, Geni Orlando Position: [facility] Associate Professional Member Role: Primary Care Nurse Address: Address: [address] [place] [address]- Name: Talia Matute RN Position: [facility] RN Member Role: Primary Care Nurse Name: Santi James MD Position: [facility] Physician - Primary Care Member Role: PCP Address: Address: [address] [place] [address] Adult & [place] [address]- Care Team Related Persons Name: PITER BAILEY Address: home [address] [place] [address] Name: DELMIS ADAMS Address: home [place] [place], [place] Name: RUPERT PALMER Address: home [address] [place], [place] Name: DESIRAE CHAUDHARY Address: home [address] [place], [place]
--- OUTSIDE RECORDS SUMMARY | 2024-07-15 15:46 | XMS_ITS | Continuity of Care Document ---
Author Organization [facility] Address [address] [place] [address]- Care Team Providers Care Tumbler Drier Operator Name Role Phone Jacob DORAN, Santi Primary Care Physician Encounter [facility] Date(s): 03/11/22 - 04/10/22 [facility] [address] [place], [place] [address] Allergies, Adverse Reactions, Alerts Substance Reaction Severity [...] Note: given at [facility] in [place] 7Admin Note: per pt, done at [facility] 8Admin Note: done @ [facility], form received 9Admin Note: given at work 10Admin Note: given in the fall 11Result Comment: [id number] 12Result Comment: [08/31/2018] [id number] 13Result Comment: [08/24/2015] given w/out incident 14Admin Note: per pt 15Admin Note: [facility] Medications acetaminophen 650 mg oral tablet, extended release 1 tablet, By Mouth, Every 8 hours, PRN NEEDED FOR PAIN, # 90 tablet, 3 Refills, [facility] 49406,156, cm, 04/04/22 7:36:00 EDT, Height, 78.9, kg, [...] each, 4 Refills, Maintenance, 02/07/22 12:08:00 EDT, [place], [facility]/pharmacy #2476, Partial fill upon patient request if the prescription is for a schedule II opioid drug., 1 sprays Nares... Start Date: 02/07/22 Stop Date: 07/07/22 Status: Ordered cetirizine 10 mg oral tablet 1 tablet, By Mouth, Daily, # 90 tablet, 3 Refills, [facility] 38907, 156, cm, 03/18/22 8:26:00 EDT, Height Start [...] 0 Refills, Soft Stop, 04/08/22 13:39:00 EDT, Tablet,[facility], Partial fill upon patient request if the prescription is for a schedule II opioid drug., 156, cm, 04/04/22 7:36:00 EDT, Height, 78.... Start Date: 04/08/22 Status: Ordered Flonase 50 mcg/inh nasal spray 1 sprays, Nares, Both, 2 times a day, in each nostril X 5 Days, and then daily thereafter, # 16 Gm,6 Refills, Maintenance, 11/06/21 10:21:00 EST, [place], [facility]/pharmacy #2476, Partial fill upon patientrequest if the prescription is for a schedule II op... Start Date: 11/06/21 Status: Ordered levothyroxine 0.05 mg oral tablet See Instructions, TAKE 1 TABLET BY MOUTH EVERY DAY, # 90 tablet, 1 Refills, [facility] 39100, 156, cm, 02/07/22 11:31:00 EDT, Height Start [...] 9:18:00 EDT, [facility], Route to Pharmacy Electronically, [id number]... Start Date: 02/26/22 Status: Ordered Vitamin D3 [...]
--- OUTSIDE RECORDS SUMMARY | 2024-07-15 15:46 | XMS_ITS | Continuity of Care Document ---
Author Organization [facility] Address [address] [place] [address]- Care Team Providers Care Provider Network Manager Name Role Phone Santi James MD Primary Care Physician Encounter [facility] Date(s): 09/15/23 - 09/22/23 [facility] [address] [place] [address]- Encounter Diagnosis Tenderness of right calf(Discharge Diagnosis) - 09/15/23 Right Achilles tendinitis(Discharge Diagnosis) - 09/15/23 Attending Physician: Santi James MD Allergies, Adverse [...] Note: given at [facility] in [place] 7Admin Note: per pt, done at [facility] 8Admin Note: [facility] @ [facility], form received 9Admin Note: given at work 10Admin Note: given in the fall 11Result Comment: [id number] 12Result Comment: [08/31/2018] [id number] 13Result Comment: [08/24/2015] given w/out incident 14Admin [...] tablet, 3 Refills, Maintenance, 01/17/23 12:44:00 EDT, [facility] 21673, 156.15, cm, 11/29/22 14:40:00 EST, Height, 79.5, [...] 90 Unknown,1 Refills, Maintenance, 06/10/23 8:18:00 EDT, [facility] 91376, 90, USE 1 SPRAY IN BOTH NOSTRILS [...] 11 Refills, Soft Stop, 03/14/23 15:31:00 EDT, [facility]/pharmacy #2476, Partial fill upon patient request if theprescription is for a schedule II opioid drug., 155... Start Date: 03/14/23 Status: Ordered ergocalciferol 15424 iu oral capsule 50,000 International_Units, 1, capsule, By Mouth, Every week, # 12 capsule, Refills 0, Tot. Refills0, Maintenance, 06/12/23 7:24:00 EDT, Route to Pharmacy Electronically, [facility]/pharmacy #2476, Partialfill upon patient request if the prescription is fo... Start Date: 06/12/23 Stop Date: 09/04/23 Status: Ordered fexofenadine 180 mg oral tablet 1 tablet = 180 mg, By Mouth, Daily, PRN for allergy symptoms, # 90 tablet, 4 Refills, Maintenance, 09/02/23 11:04:00 EDT, Tablet, [facility]/pharmacy #2476, Partial fill upon patient request if the prescription is for a schedule II opioid drug., 155, cm, ... Start Date: 09/02/23 Stop Date: 11/25/24 Status: Ordered levothyroxine 0.05 mg oral tablet 1 tablet, By Mouth, Daily, # 90 tablet, 3 Refills, Maintenance, 08/12/23 15:31:00 EDT, [facility]/pharmacy#2476, 155, cm, 08/12/23 15:09:00 EDT, Height, [...] Effective Dates Health Status Clinical Service Informant Tenderness of right calf Discharge Diagnosis 09/15/23 Right Achilles tendinitis Discharge Diagnosis 09/15/23 Vital Signs Most recent to oldest [Reference Range]: 1 Height 155 cm (09/15/23 7:01 PM) Weight 84.4 kg (09/15/23 7:01 PM) Oxygen Saturation [94-100 %] 97 % (09/15/23 7:01 PM) Pulse Rate [55-90 bpm] 60 bpm (09/15/23 7:01 PM) Body Mass Index [18.5-24.99 kg/m2] 35.13 kg/m2 *>HHI* (09/15/23 7:01 PM) Blood Pressure [90-138/55-84 mm Hg] 140/ 77mm Hg *H* (09/15/23 7:01 PM) Mode of Delivery (Oxygen) Room air (09/15/23 7:01 PM) Social History Social History Type Response Smoking Status Never smoker entered on: 10/12/14 Sex Note * Zenobia Newton: PERFORM, SIGN, VERIFY Event Display: Patient Education/Instruction Authored Date: [id number] [facility] *[facility] Clinical Summary Name IAN BAILEY Age 58 Years 1965 PCP Jacob DORAN, Santi PCP Visit Date 09/15/2023 18:48:00 Patient Instructions 1. continue physical therapy for another 4 weeks to determine if you are improving. 2. if you do not improve by then, you may need to see orthopedics to determine why you are not improving. 3. continue daily exercises as taught to you by physical therapy 4. since you are intolerant to Celebrex and Ibuprofen, then continue using Tylenol as you are doing. 5. use shoes with good arch support Additional Instructions: Scheduled Appointments?? Future Appointments ?*No??[facility] ?[address]??[place],??[place],??[address] ?Phone:??--?Fax:??-- ?Appt. Date:??10/28/2023?10:20 AM ?Scheduled Provider:??Santi James MD Follow-Up Instructions ?? Diagnosis Achilles tendinitis, right leg; Pain in right lower leg Medications: Please continue your medications until treatment is completed or stopped by your provider. Discuss any questions related to medications with your provider. Medications to Continue Taking That Have Changed These medications were not printed or sent to your pharmacy - Fexofenadine (fexofenadine 180 mg oral tablet) 1 tab(s) Oral Daily as needed for allergy symptomsfor 90 Days. Refills: 4. Next Dose: Medications to Continue with No [...] Refills: 3. Next Dose: Durable Medical Equipment (RAVINDRA bandage [...] necessary. Refills: 11. Next Dose: Ergocalciferol (ergocalciferol 93225 iu oral capsule) 1 capsule Oral every week for 12 week(s). Refills: 0. Next Dose: Levothyroxine (levothyroxine 0.05 mg oral [...] a day for 30 Days. Next Dose: No Longer Take the Following Medications Ibuprofen (ibuprofen 800 mg oral tablet) 1 tab(s) Oral 3 times a day. X30 DAYS, STOP ASPIRIN WHILE TAKING THIS.. Refills: 1. Allergy Info:?? tiZANidine; Demerol; Levaquin; Topamax; Lipitor; Biaxin; Percocet; Lopid; benzonatate; predniSONE; morphine; nitrofurantoin; doxycycline Medications Given This Visit Future Orders ?No future orders Vital Signs Height 155 cm Weight 84.4 kg BMI 35.13 kg/m2 Blood Pressure 140 mm Hg/77 mm Hg Temperature Pulse Rate 60 bpm Respiratory Rate 02 Sat Mode of Delivery 97 %/Room air You can now view a summary of your hospital visit from the comfort of your home through a free online portal called [employer]. [employer] is a website that allows you to securely view your medical information including discharge summary, medications and follow-up visits. ??You can alsosend a secure electronic message to your doctor???s office to request appointments, renew medications or just ask a question. You can enroll at [email or web address] or register during your next office visit. [...] primary care provider, you may find a [facility] provider by calling [email or web address] Link at [phone]. [facility], in keeping with [facility] guidance, no longer requires face [...] individualized medical care. Additional Provider Instructions: 1. continue physical therapy for another 4 weeks to determine if you are improving. 2. if you do not improve by then, you may need to see orthopedics to determine why you are not improving. 3. continue daily exercises as taught to you by physical therapy 4. since you are intolerant to Celebrex and Ibuprofen, then continue using Tylenol as you are doing. 5. use shoes with good arch support Patient Care team information Care Team Personnel Name: Justa SAP PLANT MAINTENANCE CONSULTANT, Geni Orlando Position: [facility] Associate Professional Member Role: Primary Care Nurse Address: Address: [address] [place] [address]- Name: Talia Matute RN Position: [facility] RN Member Role: Primary Care Nurse Name: Santi James MD Position: [facility] Physician - Primary Care Member Role: PCP Address: Address: [address] [place] [address] Adult & [place] [address]- Care Team Related Persons Name: PITER BAILEY Address: home [address] [place] [address] Name: DELMIS ADAMS Address: home [place], [place] Name: RUPERT PALMER Address: home [address] [place], [place] Name: DESIRAE CHAUDHARY Address: home [address] [place], [place]
--- OUTSIDE RECORDS SUMMARY | 2024-07-15 15:46 | XMS_ITS | Continuity of Care Document ---
Author Organization [facility] Address [address] [place] [address]- Care Team Providers Care Shipper Receiver Name Role Phone Santi James MD Primary Care Physician [facility] Date(s): 02/06/24 - 03/07/24 [facility] [address] [place], [place] [address] Allergies, Adverse Reactions, Alerts Substance [...] (Td) 11/03/99 Given 1Admin Note: done @ [facility],form received 2Result Comment: [07/31/2015] [facility] 3Admin Note: done @ [facility] 4Admin Note: vis sheet given. 5Admin Note: work 6Admin Note: given at [facility] in [place] 7Admin Note: per pt, done at [facility] 8Admin Note: done @ [facility], form received 9Admin Note: given at work 10Admin Note: given in the fall 11Result Comment: [id number] 12Result Comment: [08/31/2018] [id number] 13Result Comment: [08/24/2015] given w/out incident 14Admin [...] tablet, 3 Refills, Maintenance, 01/17/23 12:44:00 EDT, [facility] 49572, 156.15, cm, 11/29/22 14:40:00 EST, Height, 79.5, [...] 90 Unknown,1 Refills, Maintenance, 06/10/23 8:18:00 EDT, [facility] 21034, 90, USE 1 SPRAY IN BOTH NOSTRILS [...] Refills, Soft Stop, 03/14/23 15:31:00 EDT, [facility], Partial fill upon patient request if theprescription is for a schedule II opioid drug., 155... Start Date: 03/14/23 Status: Ordered fexofenadine 180 mg oral tablet 1 tablet = 180 mg, By Mouth, Daily, PRN for allergy symptoms, # 90 tablet, 4 Refills, Maintenance, 09/02/23 11:04:00 EDT, Tablet, [facility]/pharmacy #2476, Partial fill upon patient request if the prescription is for a schedule II opioid drug., 155, cm, ... Start Date: 09/02/23 Stop Date: 11/25/24 Status: Ordered fluconazole 150 mg oral tablet 1 tablet = 150 mg, By Mouth, Once, repeat dose if still having symptoms in 72 hours, # 2 tablet, 0 Refills, Soft Stop, 12/22/23 13:26:00 EST, Tablet, [facility]/pharmacy #2476, Partial fill upon patient request if the prescription is for a schedule II opioid... Start Date: 12/22/23 Status: Ordered ibuprofen 800 mg oral tablet 1, tablet, By Mouth, 3 times a day, X30 DAYS, STOP ASPIRIN WHILE TAKING THIS., # 90 tablet, Refills1, Maintenance, 12/04/23 7:25:00 EST, Route to Pharmacy Electronically, [facility] 35[facility], 155, cm, 11/18/23 16:29:00 EST, Height, 83.7, kg, 11/06/23 9:0... Start Date: 12/04/23 Status: Ordered levothyroxine 0.05 mg oral tablet 1 tablet, By Mouth, Daily, # 90 tablet, 3 Refills, Maintenance, 08/12/23 15:31:00 EDT, [facility]/pharmacy#2476, 155, cm, 08/12/23 15:09:00 EDT, Height, 83.9, kg, 03/13/23 4:46:00 EDT, Dry Weight Start Date: 08/12/23 Stop Date: 08/06/24 Status: Ordered montelukast 10 mg oral tablet 1, tablet, By Mouth, Daily, # 90 tablet, Refills 3, Maintenance, 11/23/23 8:40:00 EST, Route to Pharmacy Electronically, [facility] 51576, 155, cm, 11/18/23 16:29:00 EST, Height, 83.7, [...] Team Personnel Name: Geni Marr NP Position: [facility] Associate Professional Member Role: Primary Care Nurse Address: Address: [address] [place] [address]- Name: Talia Matute RN Position: [facility] RN Member Role: Primary Care Nurse Name: Darshan Benz RN Position: [facility] Outreach Member Role: Primary Care Nurse Name: Santi James MD Position: [facility] Physician - Primary Care Member Role: PCP Address: Address: [address] [place] [address] Adult & [place] [address]- Care Team Related Persons Name: PITER BAILEY Address: home [address] [place] [address] Name: DELMIS ADAMS Address: home [place], [place] Name: RUPERT PALMER Address: home [address] [place], [place] Name: DESIRAE CHAUDHARY Address: home [address] [place], [place]
--- OUTSIDE RECORDS SUMMARY | 2024-07-15 15:46 | XMS_ITS | Continuity of Care Document ---
Author Organization [facility] Address [address] [place] [address]- Care Team Providers Care Drug Room Clerk Name Role Phone Santi James MD Primary Care Physician [facility] Date[facility]s): 03/13/23 - 04/12/23 [facility] [address] [place], [place] [address] Allergies, Adverse Reactions, Alerts Substance [...] 5Admin Note: work 6Admin Note: [facility] 7Admin Note: per pt, done at [facility] 8Admin Note: done @ [facility], form received 9Admin Note: given at work 10Admin Note: given in the fall 11Result Comment: [id number] 12Result Comment: [08/31/2018] [id number] 13Result Comment: [08/24/2015] given w/out incident 14Admin Note: per pt 15Admin Note: [facility] Medications acetaminophen 650 mg oral tablet, extended release 1 tablet, By Mouth, Every 8 hours, PRN NEEDED FOR PAIN, # 90 tablet, 3 Refills, Maintenance, 01/17/23 12:44:00 EDT, [facility], 156.15, cm, 11/29/22 14:40:00 EST, Height, 79.5, [...] each, 10 Refills, Maintenance, 11/25/22 15:18:00 EST, [place], [facility]/pharmacy #2476, replaces 0.15% dose, 1 sprays Nares, [...] 155... Start Date: 03/14/23 Status: Ordered ergocalciferol 21562 iu oral capsule 50,000 International_Units, 1, capsule, By Mouth, Every week, # 12 capsule, Refills 0, Tot. Refills0, Maintenance, 04/10/23 9:13:00 EDT, Route to Pharmacy Electronically, [facility]/pharmacy [...] Maintenance, 03/01/23 14:21:00 EDT, [facility] 36193, 156.15, cm, 11/29/22 14:40:00 EST, Height, 79.5, [...] Maintenance, 03/28/23 13:04:00 EDT, Aerosol, [facility]/pharmacy #8408, replaced Proventil that is not available, 155, [...] Primary Care Nurse Address: Address: [address] [facility] [place] [address]- Name: Talia Matute RN Position: [facility] RN Member Role: Primary Care Nurse Name: Santi James MD Position: [facility] Physician - Primary Care Member Role: PCP Address: Address: [address] [place] [address] Adult & [place] [address]- Care Team Related Persons Name: PITER BAILEY Address: home [address] [place] [address] Name: DELMIS ADAMS Address: home [place], [place] Name: RUPERT PALMER Address: home [address] [place], [place] Name: DESIRAE CHAUDHARY Address: home [address] [place], [place]
--- OUTSIDE RECORDS SUMMARY | 2024-07-15 15:46 | XMS_ITS | Continuity of Care Document ---
Author Organization [facility] Address [address] [place] [address]- Care Team Providers Care Fruit I Farmworker Name Role Phone Santi James MD Primary Care Physician En[place] [facility] Date(s): 03/10/20 - 03/17/20 [facility] [address] [place] [address]- [facility] Encounter Diagnosis Left leg swelling(Discharge Diagnosis) - 03/10/20 Attending Physician: Santi James MD Allergies, Adverse [...] in the fall 3Admin Note: done @ [facility], form received 4Result Comment: [id number] 5Result Comment: [08/31/2018] [id number] 6Result Comment: [08/24/2015] given w/out incident 7Admin Note: done @ [facility],form received 8Result Comment: [07/31/2015] [facility] 9Admin Note: done @ [facility] 10Admin Note: vis sheet given. 11Admin Note: work 12Admin Note: given at [facility] [place] 13Admin Note: per pt, done at [facility] 14Admin Note: per pt 15Admin Note: [facility] Medications acetaminophen 650 mg oral tablet, extended release 1 tablet = 650 mg, By Mouth, Every 8 hours, PRN Pain , Moderate, for 30 days, # 90 tablet, 7 Refills, Acute 11/08/20 11:12:00 EST, 03/13/20 11:12:00 EDT, ER Tablet, [facility]/pharmacy #[id number], 156, cm, 03/13/20 10:31:00 EDT, [...] Refills, Maintenance, 12/01/19 12:54:00 EST, Solution, [facility]/pharmacy #[id number], 156, cm, 12/01/19 12:40:00 EST, Height, 79.6, kg, 03/10/19 14:10:00 EDT, Dry Weight Start Date: 12/01/19 Stop Date: 04/29/20 Status: Ordered albuterol CFC free 90 mcg/inh inhalation aerosol 2, puffs, Inhalation, Every 4 hours, PRN, # 9 Gm, Refills 0, Tot. Refills 0, Maintenance, 10/28/17 14:12:34, Aerosol, Route to Pharmacy Electronically, [id number], [facility]/pharmacy #[id number], Compound Start Date: 10/28/17 Status: [...] 02/14/20 8:39:00 EDT, Route to Pharmacy Electronically, [facility]/pharmacy #[id number], increase in dose, 156, cm, 12/23/19 13:03:00 EST, Height, 78.8, kg, 12/20/19 10:35:00... Start Date: 02/14/20 Stop Date: 04/14/20 Status: Ordered levothyroxine 0.05 mg oral tablet 1 tablet = 50 mcg, By Mouth, Daily, # 90 tablet, 3 Refills, Maintenance, 03/13/20 11:08:00 EDT, Tablet, [facility]/pharmacy #[id number], 156, cm, 03/13/20 10:31:00 EDT, [...] 03/08/20 9:54:00 EDT, Route to Pharmacy Electronically, [facility]/pharmacy #[id number], 156, cm, 12/23/19 13:03:00 EST, [...] Dates Health Status Cl inical Service Informant Left leg swelling Discharge Diagnosis 03/10/20 Social History Social History Type Response Smoking Status Never smoker entered on: 10/12/14 Sex
--- OUTSIDE RECORDS SUMMARY | 2024-07-15 15:46 | XMS_ITS | Continuity of Care Document ---
Author Organization [facility] Address [address] [place] [address]- Care Team Providers Care Iuss Acoustic Analyst Name Role Phone Santi James MD Primary Care Physician [facility] Date[facility] 04/[facility]23 - 05/08/23 [facility] [address] [place], [place] [address] Allergies, Adverse Reactions, Alerts Substance Reaction Severity Status morphine Active Percocet Active Lipitor Myalgia unspecified Muscle cramps Active doxycycline Hives Active nitrofurantoin Pruritus Rash Active predniSONE Anaphylaxis Active benzonatate Speech impediment Active Lopid Muscle cramps Myalgia and myositis unspecified Active Biaxin Upset stomach Active Topamax Skin rash Active Levaquin Hives Active tiZANidine Anaphylaxis Active Demerol Active Immunizations [...] 5Admin Note: work 6Admin Note: given at [facility] [place] 7Admin Note: per pt, done at [facility] 8Admin Note: done @ [facility], form received 9Admin Note: given at work 10Admin Note: given in the fall 11Result Comment: [id number] 12Result Comment: [08/31/2018] [id number] 13Result Comment: [08/24/2015] given w/out incident 14Admin Note: per pt 15Admin Note: [facility] Medications acetaminophen 650 mg oral tablet, extended release 1 tablet, By Mouth, Every 8 hours, PRN NEEDED FOR PAIN, # 90 tablet, 3 Refills, Maintenance, 01/17/23 12:44:00 EDT, [facility], 156.15, cm, 11/29/22 14:40:00 EST, Height, 79.5, [...] each, 10 Refills, Maintenance, 11/25/22 15:18:00 EST, [place], [facility]/pharmacy #[id number], replaces 0.15% dose, 1 sprays Nares, [...] 155... Start Date: 03/14/23 Status: Ordered ergocalciferol 02404 iu oral capsule 50,000 International_Units, 1, capsule, By Mouth, Every week, # 12 capsule, Refills 0, Tot. Refills0, Maintenance, 04/10/23 9:13:00 EDT, Route to Pharmacy Electronically, [facility] [...] Refills, Maintenance, 03/01/23 14:21:00 EDT, [facility], 156.15, cm, 11/29/22 14:40:00 EST, Height, 79.5, [...] 03/28/23 13:04:00 EDT, Aerosol, [facility]/pharmacy #2476, replaced Proventil that is not available, [...] Role: Primary Care Nurse Address: Address: [address] [place] [address]- [place] Name: Talia Matute RN [facility] RN Member Role: Primary Care Nurse Name: Santi James MD Position: [facility] Physician - Primary Care Member Role: PCP Address: Address: [address] [place] [address] Adult [place] [address]- Care Team Related Persons Name: PITER BAILEY Address: home [address] [place] [address] Name: DELMIS ADAMS Address: home [place], [place] Name: RUPERT PALMER Address: home [address] [place], [place] Name: DESIRAE CHAUDHARY Address: home [address] [place], [place]
--- OUTSIDE RECORDS SUMMARY | 2024-07-15 15:46 | XMS_ITS | Continuity of Care Document ---
Author Organization [facility] Address [address] [place] [address]- Care Team Providers Care Head Miller Name Role Phone Santi James MD Primary Care Physician [facility] Date[facility]s): 02/05/23 - 03/07/23 [facility] [address] [place] [id number] Allergies, Adverse Reactions, Alerts Substance [...] Note: work 6Admin Note: given at [facility] 7Admin Note: per pt, done at [facility] 8Admin Note: done @ [facility], form received 9Admin Note: given at work 10Admin Note: given in the fall 11Result Comment: [id number] 12Result Comment: [08/31/2018] [id number] 13Result Comment: [08/24/2015] given w/out incident 14Admin Note: per pt 15Admin Note: [facility] Medications acetaminophen 650 mg oral tablet, extended release 1 tablet, By Mouth, Every 8 hours, PRN NEEDED FOR PAIN, # 90 tablet, 3 Refills, Maintenance, 01/17/23 12:44:00 EDT, [facility] STORE 81688, 156.15, cm, 11/29/22 14:40:00 EST, Height, 79.5, kg, 06/06/22 11:17:00 EDT, Dry Weight Start Date: 01/17/23 Status: Ordered Albuterol (Eqv-ProAir HFA) 90 mcg/inh inhalation aerosol 2 puffs, Inhalation, Every 6 hours, PRN Wheezing/Shortness of Breath, # 6.7 Gm, 11 Refills, Maintenance, 08/29/22 9:07:00 EDT, [facility]/pharmacy [...] each, 10 Refills, Maintenance, 11/25/22 15:18:00 EST, [place], [facility]/pharmacy #[id number], replaces 0.15% dose, 1 sprays [...] Gm, 11 Refills, 08/29/22 9:07:00 EDT, [facility]/pharmacy #2476, USE 1 SPRAY IN EACH NOSTRL 2 TIMES A DAYX 5 DAYS, AND THEN DAILY THEREAFTER, 156.15, cm, 10... Start Date: 08/29/22 Status: Ordered levothyroxine 0.05 mg oral tablet 1 tablet, By Mouth, Daily, # 90 tablet, 1 Refills, Maintenance, 03/01/23 14:21:00 EDT, [facility] STORE 37190, 156.15, cm, 11/29/22 14:40:00 EST, Height, 79.5, kg, 06/06/22 11:17:00 EDT, Dry Weight Start Date: 03/01/23 Status: Ordered loratadine 10 mg oral tablet 10 mg, 1, tablet, By Mouth, Daily, # 30 tablet, Refills 11, Tot. Refills 11, Maintenance, 08/29/22 9:07:00 EDT, [facility] Pharmacy Electronically, [facility] [...] 1 each, 11 Refills, Maintenance, 11/28/2314:07:00 EST, [facility], Partial fill upon patient [...] 9:07:00 EDT, Route to Pharmacy Electronically, [facility]/pharmacy #[id number], Partial fill upon patient requestif the prescription is for a schedule II opioid lauro... Start Date: 08/29/22 Status: Ordered Symbicort 160mcg/4.5mcg Inhaler 2, puffs, Inhalation, 2 times a day, in the morning and the evening use with spacer chamber rinse mouth and throat after use, # 1 each, Refills 5, Tot. Refills 5, Maintenance, 10/17/22 10:03:00 EST, Aerosol, Route to Pharmacy Electronically, [id number]... Start Date: 10/17/22 Status: Ordered Vitamin D3 [...] Role: Primary Care Nurse Address: Address: [address] [place] [address]- [place] Name: Santi James MD [facility] Primary Care Physician Member Role: PCP Address: Address: [address] [facility] [place] [address]- Care Team Related Persons Name: PITER BAILEY Address: home [address] [place] [address] Name: DELMIS ADAMS Address: home [place], [place] Name: RUPERT PALMER Address: home [address] [place], [place] Name: DESIRAE CHAUDHARY Address: home [address] [place], [place]
--- OUTSIDE RECORDS SUMMARY | 2024-07-15 15:46 | XMS_ITS | Continuity of Care Document ---
Author Organization [facility] Address [address] [place] [address]- Care Team Providers Care Sewer Pipe Layer Helper Name Role Phone Jacob DORAN, Santi Primary Care Physician [facility] Date[facility]s): 04/08/22 - 05/08/22 [facility] [address] [place], [place] [address] Allergies, Adverse Reactions, Alerts Substance Reaction [...] Note: given at [facility] in [place] 7Admin Note: per pt, done at [facility] 8Admin Note: done @ [facility], form received 9Admin Note: given at work 10Admin Note: given in the fall 11Result Comment: [id number] 12Result Comment: [08/31/2018] [id number] 13Result Comment: [08/24/2015] given w/out incident 14Admin Note: per pt 15Admin Note: [facility] Medications acetaminophen 650 mg oral tablet, extended release 1 tablet, By Mouth, Every 8 hours, PRN NEEDED FOR PAIN, # 90 tablet, 3 Refills, [facility] STORE 98106,156, cm, 04/04/22 7:36:00 EDT, Height, 78.9, kg, 04/04/22 7:36:00 EDT, Dry Weight Start Date: 04/08/22 Status: Ordered Albuterol (Eqv-ProAir HFA) 90 mcg/inh inhalation aerosol 2 puffs, Inhalation, Every 6 hours, PRN Wheezing/Shortness of Breath, # 6.7 Gm, 11 Refills, Maintenance, 02/26/22 9:18:00 EDT, [facility]/pharmacy #2476, Partial fill upon patient request if [...] each, 4 Refills, Maintenance, 02/07/22 12:08:00 EDT, [place], [facility]/pharmacy #2476, Partial fill upon patient request if the prescription is for a schedule II opioid drug., 1 sprays Nares... Start Date: 02/07/22 Stop Date: 07/07/22 Status: Ordered cetirizine 10 mg oral tablet 1 tablet, By Mouth, Daily, # 90 tablet, 3 Refills, [facility] STORE 46380, 156, cm, 03/18/22 8:26:00 EDT, Height Start [...] 0 Refills, Soft Stop, 04/08/22 13:39:00 EDT, Tablet,[facility]/pharmacy #3826, Partial fill upon patient request if the prescription is for a schedule II opioid drug., 156, cm, 04/04/22 7:36:00 EDT, Height, 78.... Start Date: 04/08/22 Status: Ordered fluticasone 50 mcg/inh nasal spray See Instructions, USE 1 SPRAY IN EACH NOSTRL 2 TIMES A DAY X 5 DAYS, AND THEN DAILY THEREAFTER, # 48 mL, 1 Refills, [facility] STORE 47013, 90, USE 1 SPRAY IN EACH NOSTRL 2 TIMES A DAY X 5 DAYS, AND THEN DAILY THEREAFTER, 156, cm, 04/04/22 7:36:00 EDT, Heigh... Start Date: 04/30/22 Status: Ordered levothyroxine 0.05 mg oral tablet See Instructions, TAKE 1 TABLET BY MOUTH EVERY DAY, # 90 tablet, 1 Refills, [facility] ST[facility] 65390, 156, cm, 02/07/22 11:31:00 EDT, Height Start Date: 02/19/22 Status: Ordered loratadine 10 mg oral tablet 10 mg, 1, tablet, By Mouth, Daily, # 30 tablet, Refills 11, Tot. Refills 11, Maintenance, 02/26/22 9:18:00 EDT, Route to Pharmacy Electronically, [facility]/pharmacy #2476, Partial fill upon patient requestif the [...] 02/26/22 9:18:00 EDT, Route to Pharmacy Electronically, [facility]/pharmacy #2476, Partial fill upon patient requestif the prescription is for a schedule II opioid lauro... Start Date: 02/26/22 Status: Ordered Symbicort 160mcg/4.5mcg Inhaler 2, puffs, Inhalation, 2 times a day, in the morning and the evening use with spacer chamber rinse mouth and throat after use, # 54 Gm, Refills 12, Tot. Refills 12, Maintenance, 02/26/22 9:18:00 EDT, Aerosol, Route to Pharmacy Electronically, [id number]... Start Date: 02/26/22 Status: Ordered Vitamin D3 [...] pack/packet, 0 Refills, Maintenance, 04/08/22 12:19:00 EDT, [facility]/pharmacy #2476, Partial fill upon patient request if [...]
--- OUTSIDE RECORDS SUMMARY | 2024-07-15 15:46 | XMS_ITS | Continuity of Care Document ---
Author Organization [facility] Address [address] [place] [address]- Care Team Providers Care Storage Garage Attendant Name Role Phone Santi James MD Primary Care Physician [facility] 07[facility]23 - 08/17/23 [facility] [address] [place], [place] [address] Allergies, Adverse [...] 6Admin Note: given at [facility] [place] 7Admin Note: per pt, done at [facility] 8Admin Note: done @ [facility], form received 9Admin Note: given at work 10Admin Note: given in the fall 11Result Comment: [id number] 12Result Comment: [08/31/2018] [id number] 13Result Comment: [08/24/2015] given w/out incident 14Admin [...] Refills, Maintenance, 01/17/23 12:44:00 EDT, [facility], 156.15, cm, 11/29/22 14:40:00 EST, Height, 79.5, [...] Refills, Maintenance, 06/10/23 8:18:00 EDT, [facility], 90, USE 1 SPRAY IN BOTH NOSTRILS 2 TIMES A DAY NEEDED FOR ALLERGIES, 155, cm, ... Start Date: 06/10/23 Status: Ordered CeleBREX 100 mg oral capsule 1 capsule = 100 mg, By Mouth, 2 times a day, PRN for pain, # 60 capsule, 4 Refills, Maintenance, 08/12/23 15:29:00 EDT, Capsule, [facility]/pharmacy #1696, replaces ibuprofen, 155, cm, 08/12/23 15:09:00 EDT, [...] 155... Start Date: 03/14/23 Status: Ordered ergocalciferol 68000 iu oral capsule 50,000 International_Units, 1, capsule, [...] tablet, 3 Refills, Maintenance, 08/12/23 15:31:00 EDT, [facility]/pharmacy#2476, 155, cm, 08/12/23 15:09:00 EDT, Height, [...] Member Role: Primary Care Nurse Address: Address: [address] [place] [address] [address]- Name: Juju QIU, Talia Position: [facility] RN Member Role: Primary Care Nurse Name: Santi James MD Position: [facility] Physician - Primary Care Member Role: PCP Address: Address: [address] [place] [address] Adult & [place] [address]- Care Team Related Persons Name: PITER BAILEY Address: home [address] [place] [address] Name: DELMIS ADAMS Address: [place] [address] Name: RUPERT PALMER Address: home [address] [place] [address] Name: DESIRAE CHAUDHARY Address: [address] [place] [address]
--- OUTSIDE RECORDS SUMMARY | 2024-07-15 15:46 | XMS_ITS | Continuity of Care Document ---
Author Organization [facility] Address [address] [place] [address]- Care Team Providers Care Crusher Supervisor Name Role Phone Santi James MD Primary Care Physician [facility]): 04/03/23 - 05/03/23 [facility] [address] [place], [place] [address] Allergies, Adverse Reactions, Alerts Substance Reaction Severity Status doxycycline Hives Active nitrofurantoin Pruritus Rash Active morphine Active predniSONE Anaphylaxis Active Percocet Active Lipitor Myalgia unspecified Muscle cramps Active benzonatate Speech impediment Active Lopid Muscle [...] @ [facility],form received 2Result Comment: [07/31/2015] [facility] 3Admin Note: done @ [facility] 4Admin Note: vis sheet given. 5Admin Note: work 6Admin Note: given at [facility] in [place] 7Admin Note: per pt, done at [facility] 8Admin Note: done @ [facility], form received 9Admin Note: given at work 10Admin Note: given in the fall 11Result Comment: [id number] 12Result Comment: [08/31/2018] [id number] 13Result Comment: [08/24/2015] given w/out incident 14Admin Note: per pt 15Admin Note: [facility] Medications acetaminophen 650 mg oral tablet, extended release 1 tablet, By Mouth, Every 8 hours, PRN NEEDED FOR PAIN, # 90 tablet, 3 Refills, Maintenance, 01/17/23 12:44:00 EDT, [facility], 156.15, cm, 11/29/22 14:40:00 EST, Height, 79.5, [...] each, 10 Refills, Maintenance, 11/25/22 15:18:00 EST, [place], [facility]/pharmacy #2476, replaces 0.15% dose, 1 sprays [...] 155... Start Date: 03/14/23 Status: Ordered ergocalciferol 95703 iu oral capsule 50,000 International_Units, 1, capsule, By Mouth, Every week, # 12 capsule, Refills 0, Tot. Refills0, Maintenance, 04/10/23 9:13:00 EDT, Route to Pharmacy Electronically, [facility]/pharmacy #2476, Partialfill upon patient request if [...] Refills, Maintenance, 03/01/23 14:21:00 EDT, [facility], 156.15, cm, 11/29/22 14:40:00 EST, Height, 79.5, [...] Member Role: Primary Care Nurse Address: Address: [address] [place] [address]- [place] Name: Talia Matute RN Position: [facility] RN Member Role: Primary Care Nurse Name: Santi James MD Position: [facility] Physician - Primary Care Member Role: PCP Address: Address: [address] [place] [address] Adult & [place] [address]- Care Team Related Persons Name: PITER BAILEY Address: home [address] [place] [address] Name: DELMIS ADAMS Address: home [place], [place] Name: RUPERT PALMER Address: home [address] [place], [place] Name: DESIRAE CHAUDHARY Address: home [address] [place], [place]
--- OUTSIDE RECORDS SUMMARY | 2024-07-15 15:46 | XMS_ITS | Continuity of Care Document ---
Author Organization [facility] Address [address] [place] [address]- Care Team Providers Care Permastone Mechanic Name Role Phone Jacob DORAN, Santi Primary Care Physician [facility]): 06/02/23 - 07/02/23 [facility] [address] [place], [place] [address] Allergies, Adverse Reactions, Alerts Substance Reaction Severity Status nitrofurantoin Pruritus Rash Active morphine Active predniSONE Anaphylaxis Active benzonatate Speech impediment Active Lopid Muscle cramps Myalgia and myositis unspecified Active Percocet Active doxycycline Hives Active Biaxin Upset stomach Active tiZANidine Anaphylaxis [...] (Td) 11/03/99 Given 1Admin Note: done @ [facility],form received 2Result Comment: [07/31/2015] [facility] 3Admin Note: done @ [facility] 4Admin Note: vis sheet given. 5Admin Note: work 6Admin Note: given at [facility] [place] 7Admin Note: per pt, done at [facility] 8Admin Note: done @ [facility], form received 9Admin Note: given at work 10Admin Note: given in the fall 11Result Comment: [id number] 12Result Comment: [08/31/2018] [id number] 13Result Comment: [08/24/2015] given w/out incident 14Admin Note: per pt 15Admin Note: [facility] Medications acetaminophen 650 mg oral tablet, extended release 1 tablet, By Mouth, Every 8 hours, PRN NEEDED FOR PAIN, # 90 tablet, 3 Refills, Maintenance, 01/17/23 12:44:00 EDT, [facility], 156.15, cm, 11/29/22 14:40:00 EST, Height, 79.5, [...] Refills, Maintenance, 06/10/23 8:18:00 EDT, [facility], 90, USE 1 SPRAY IN BOTH NOSTRILS [...] Refills, Soft Stop, 03/14/23 15:31:00 EDT, [facility]/pharmacy #2476, Partial fill upon patient request if theprescription is for a schedule II opioid drug., 155... Start Date: 03/14/23 Status: Ordered ergocalciferol 67412 iu oral capsule 50,000 International_Units, 1, capsule, By Mouth, Every week, # 12 capsule, Refills 0, Tot. Refills0, Maintenance, 06/12/23 7:24:00 EDT, Route to Pharmacy Electronically, [facility]/pharmacy #[id number], Partialfill upon patient request if the [...] tablet, 1 Refills, Maintenance, 03/01/23 14:21:00 EDT, [facility] STORE 40956, 156.15, cm, 11/29/22 14:40:00 EST, Height, 79.5, [...] Refills, Maintenance, 03/28/23 13:04:00 EDT, Aerosol, [facility]/pharmacy #3431, replaced Proventil that is not available, 155, [...] Name: Justa HARRIS, Geni [place] Position: [facility] Associate Professional Member Role: Primary Care Nurse Address: Address: [address] [place] [address]- Name: Talia Matute RN Position: [facility] RN Member Role: Primary Care Nurse Name: Santi James MD Position: [facility] Physician - Primary Care Member Role: PCP Address: Address: [address] [place] [address]- Care Team Related Persons Name: PITER BAILEY Address: home [address] [place] [address] Name: DELMIS ADAMS Address: [place] [address] Name: RUPERT PALMER Address: home [address] [place] [address] Name: DESIRAE CHAUDHARY Address: [address] [place] [address]
--- OUTSIDE RECORDS SUMMARY | 2024-07-15 15:46 | XMS_ITS | Continuity of Care Document ---
Author Organization [facility] Address [address] [place] [address]- Care Team Providers Care Hydraulic Hammer Operator Name Role Phone Jacob DORAN, Santi Primary Care Physician [facility] Date[facility]): 10[facility]/23 - 11/14/23 [facility] [address] [place], [place] [address] Allergies, Adverse Reactions, Alerts Substance [...] 6Admin Note: given at [facility] in [place] 7Admin Note: per pt, done at [facility] 8Admin Note: done @ [facility], form received 9Admin Note: given at work 10Admin Note: given in the fall 11Result Comment: [id number] 12Result Comment: [08/31/2018] [id number] 13Result Comment: [08/24/2015] given w/out incident 14Admin [...] tablet, 3 Refills, Maintenance, 01/17/23 12:44:00 EDT, [facility], 156.15, cm, 11/29/22 14:40:00 EST, Height, 79.5, [...] 90 Unknown,1 Refills, Maintenance, 06/10/23 8:18:00 EDT, [facility], 90, USE 1 SPRAY IN BOTH NOSTRILS [...] Refills, Soft Stop, 11/06/23 9:46:00 EST, Tablet, [facility]/pharmacy #3993, Partial fill upon patient request if the prescription is for a schedule II opioid drug., 155, cm, 11/06/23 9:08:00 EST, Height, 83.7... Start Date: 11/06/23 Status: Ordered EpiPen 2-Tramaine 0.3 mg injectable kit = 0.3 mg, Intramuscular, Once, PRN Anaphylactic Reaction, may repeat if necessary, # 1 each, 11 Refills, Soft Stop, 03/14/23 15:31:00 EDT, [facility]/pharmacy #2476, [...] 11/18/23 17:15:00 EST, 11/11/23 17:15:00 EST, Solution, [facility], Partial fill upon patient request [...] Primary Care Nurse Address: Address: [address] [facility] [place] [address]- Name: Talia Matute RN Position: [facility] RN Member Role: Primary Care Nurse Name: Santi James MD Position: [facility] Physician - Primary Care Member Role: PCP Address: Address: [address] [place] [address] Adult & [place] [address]- Care Team Related Persons Name: IPTER BAILEY Address: home [address] [place] [address] Name: DELMIS ADAMS Address: [place] [address] Name: RUPERT PALMER Address: home [address] [place], [place] Name: DESIRAE CHAUDHARY Address: home [address] [place], [place]
--- OUTSIDE RECORDS SUMMARY | 2024-07-15 15:47 | XMS_ITS | Continuity of Care Document ---
Author Organization [facility] Address [address] [place] [address]- Care Team Providers Care Video Production Coordinator Name Role Phone Santi James MD Primary Care Physician [facility] Date[facility]s): 12/02/22 - 01/01/23 [facility] [address] [place], [place] [address] Allergies, Adverse Reactions, Alerts [...] 11/03/99 Given 1Admin Note: done @ [facility],form received 2Result Comment: [07/31/2015] [facility] 3Admin Note: done @ [facility] 4Admin Note: vis sheet given. 5Admin Note: work 6Admin Note: given at [facility] in [place] 7Admin Note: per pt, done at [facility] 8Admin Note: done @ [facility], form received 9Admin Note: given at work 10Admin Note: given in the fall 11Result Comment: [id number] 12Result Comment: [08/31/2018] [id number] 13Result Comment: [08/24/2015] given w/out incident 14Admin Note: per pt 15Admin Note: [facility] Medications acetaminophen 650 mg oral tablet, extended release 1 tablet, By Mouth, Every 8 hours, PRN NEEDED FOR PAIN, # 90 tablet, 3 Refills, [facility] STORE 00610,156, cm, 04/04/22 7:36:00 EDT, Height, 78.9, kg, 04/04/22 7:36:00 EDT, Dry Weight Start Date: 04/08/22 Status: Ordered Albuterol (Eqv-ProAir HFA) 90 mcg/inh inhalation aerosol 2 puffs, Inhalation, Every 6 hours, PRN Wheezing/Shortness of Breath, # 6.7 Gm, 11 Refills, Maintenance, 08/29/22 9:07:00 EDT, [facility]/pharmacy #2476, Partial [...] each, 10 Refills, Maintenance, 11/25/22 15:18:00 EST, [place], [facility]/pharmacy #2476, replaces [...] 16 Gm, 11 Refills, 08/29/22 9:07:00 EDT, [facility]/pharmacy #2476, USE 1 SPRAY IN EACH NOSTRL 2 TIMES A DAYX 5 DAYS, AND THEN DAILY THEREAFTER, 156.15, cm, 10... Start Date: 08/29/22 Status: Ordered levothyroxine 0.05 mg oral tablet See Instructions, TAKE 1 TABLET BY MOUTH EVERY DAY, # 90 tablet, 1 Refills, 09/01/22 19:54:00 EDT, [facility]/pharmacy #2476, 156.15, cm, 08/29/22 8:44:00 EDT, Height, 79.5, kg, 06/06/22 11:17:00 EDT, Dry Weight Start Date: 09/01/22 Status: Ordered loratadine 10 mg oral tablet 10 mg, 1, tablet, By Mouth, Daily, # 30 tablet, Refills 11, Tot. Refills 11, Maintenance, 08/29/22 9:07:00 EDT, Route to Pharmacy Electronically, [facility]/pharmacy #2476, Partial [...] 1 each, 11 Refills, Maintenance, 11/28/2314:07:00 EST, [facility], Partial fill upon patient [...] 08/29/22 9:07:00 EDT, Route to Pharmacy Electronically, [facility]/pharmacy #8336, Partial fill upon patient requestif the prescription is for a schedule II opioid lauro... Start Date: 08/29/22 Status: Ordered Symbicort 160mcg/4.5mcg Inhaler 2, puffs, Inhalation, 2 times a day, in the morning and the evening use with spacer chamber rinse mouth and throat after use, # 1 each, Refills 5, Tot. Refills 5, Maintenance, 10/17/22 10:03:00 EST, Aerosol, Route to Pharmacy Electronically, [id number]... Start Date: 10/17/22 Status: Ordered Vitamin D3 [...] Personnel Name: Justa HARRIS, Geni Orlando Position: [facility] Associate Professional Member Role: Primary Care Nurse Address: Address: [address] [place] [address]- Name: Santi James MD Position: [facility] Primary Care Physician Member Role: PCP Address: Address: [address] [place] [address]- Care Team Related Persons Name: PITER BAILEY Address: home [address] [place] [address] Name: DELMIS ADAMS Address: home [place], [place] Name: RUPERT PALMER Address: home [address] [place], [place] Name: DESIRAE CHAUDHARY Address: home [address] [place], [place]
--- OUTSIDE RECORDS SUMMARY | 2024-07-15 15:47 | XMS_ITS | Continuity of Care Document ---
Author Organization [facility] Address [address] [place] [address]- Care Team Providers Care Qa Reviewer Name Role Phone Santi James MD Primary Care Physician [facility] Date(s): 05/02/23 - 05/09/23 [facility] [address] [place], [place] [address] Attending Physician: Santi James MD [...] Note: given at [facility] [place] 7Admin Note: per pt, done at [facility] 8Admin Note: done @ [facility], form received 9Admin Note: given at work 10Admin Note: given in the fall 11Result Comment: [id number] 12Result Comment: [08/31/2018] [id number] 13Result Comment: [08/24/2015] given w/out incident 14Admin Note: per pt 15Admin Note: [facility] Medications acetaminophen 650 mg oral tablet, extended release 1 tablet, By Mouth, Every 8 hours, PRN NEEDED FOR PAIN, # 90 tablet, 3 Refills, Maintenance, 01/17/23 12:44:00 EDT, [facility], 156.15, cm, 11/29/22 14:40:00 EST, Height, 79.5, [...] each, 10 Refills, Maintenance, 11/25/22 15:18:00 EST, [place], [facility]/pharmacy #2476, replaces 0.15% dose, 1 [...] 155... Start Date: 03/14/23 Status: Ordered ergocalciferol 11947 iu oral capsule 50,000 International_Units, 1, capsule, By Mouth, Every week, # 12 capsule, Refills 0, Tot. Refills0, Maintenance, 04/10/23 9:13:00 EDT, Route to Pharmacy Electronically, [facility]/pharmacy #2476, Partialfill upon patient request [...] Refills, Maintenance, 03/01/23 14:21:00 EDT, [facility], 156.15, cm, 11/29/22 14:40:00 EST, Height, 79.5, [...] 4 Refills, Maintenance, 03/28/23 13:04:00 EDT, Aerosol, [facility]/pharmacy #2476, replaced Proventil that is [...] oldest [Reference Range]: 1 Height 155 cm (05/02/23 4:04 PM) Weight 81.8 kg (05/02/23 4:04 PM) Oxygen Saturation [94-100 %] 97 % (05/02/23 4:04 PM) Pulse Rate [55-90 bpm] 61 bpm (05/02/23 4:04 PM) Body Mass Index [18.5-24.99 kg/m2] 34.05 kg/m2 *>HHI* (05/02/23 4:04 PM) Blood Pressure [90-138/55-84 mm Hg] 124/ 78mm Hg (05/02/23 4:04 PM) Mode of Delivery (Oxygen) Room air (05/02/23 4:04 PM) Blood pressure sites Arm, left (05/02/23 4:04 PM) Social History Social History Type Response Smoking Status Never smoker entered on: 10/12/14 Sex Note * Santillan Mallorie: PERFORM, SIGN, VERIFY Event Display: Patient Education/Instruction Authored Date: [id number] [facility] *[facility] Adult [facility] Clinical Summary Name IAN BAILEY Age 58 Years 1965 PCP Jacob DORAN, Santi PCP Visit Date 05/02/2023 15:41:00 Patient Instructions ?? 1. continue working on your diet as your LDL cholesterol is much better. 2. it will be important for you to do physical therapy for your pelvic floor as recommended by urology. ??Hopefully you will find a physical therapy specialist you can go to for this. 3. weight bearing exercise plus calcium plus vitamin D to manage your osteoporosis. 4. continue using your CPAP every night. Additional Instructions: Scheduled Appointments?? Future Appointments ?No Future Appointments Scheduled Follow-Up Instructions ?? Diagnosis Age-related osteoporosis without current pathological fracture; Irritable bowel syndrome without diarrhea; Hyperlipidemia, unspecified; Hypothyroidism, unspecified; Obstructive sleep apnea (adult) (pediatric); Hyperglycemia, unspecified Medications: Please continue your medications until treatment is completed or stopped by your provider. Discuss any questions related to medications with your provider. Medications to Continue with No Changes These [...] for 30 Days. Refills: 10. Next Dose: Cholecalciferol (Vitamin D3 50,000 intl [...] necessary. Refills: 11. Next Dose: Ergocalciferol (ergocalciferol 48194 iu oral capsule) 1 capsule Oral every week for 12 week(s). Refills: 0. Next Dose: Fexofenadine (fexofenadine 180 mg oral tablet) 1 tab(s) Oral Daily. Next Dose: Levothyroxine (levothyroxine 0.05 mg oral tablet) 1 tab(s) Oral Daily. Refills: 1. Next Dose: Montelukast (montelukast 10 mg oral [...] orders Vital Signs Height 155 cm Weight 81.8 kg BMI 34.05 kg/m2 Blood Pressure 124 mm Hg/78 mm Hg Temperature Pulse Rate 61 bpm Respiratory Rate 02 Sat Mode of Delivery 97 %/Room air You can now view a summary of your hospital visit from the comfort of your home through a free online portal called [employer]. [employer] is a website that allows you to securely view your medical information including discharge summary, medications and follow-up visits. ??You can alsosend a secure electronic message to your doctor???s office to request appointments, renew medications or just ask a question. You can enroll at [email or web address] or register during your next [...] care provider, you may find a [facility] provider by calling [facility] GetBack Link at [phone]. For information about the plan of care including goals and instructions for your diagnosis, please see the patient education orders section of this document. Patient Education Materials?? The content of this educational material or handout may have been modified, supplemented, or adapted from its original content and format to support your individualized medical care. Additional Provider Instructions: 1. continue working on your diet as your LDL cholesterol is much better. 2. it will be important for you to do physical therapy for your pelvic floor as recommended by urology. Hopefully you will find a physical therapy specialist you can go to for this. 3. weight bearing exercise plus calcium plus vitamin D to manage your osteoporosis. 4. continue using your CPAP every night. Patient Care team information Care Team Personnel Name: Justa HARRIS, Geni Orlando Position: [facility] Associate Professional Member Role: Primary Care Nurse Address: Address: [address] [place] [address]- Name: Talia Matute RN Position: [facility] RN Member Role: Primary Care Nurse Name: Santi James MD Position: [facility] Physician - Primary Care Member Role: PCP Address: Address: [address] [place] [address] Adult & [place] [address]- Care Team Related Persons Name: PITER BAILEY Address: home [address] [place] [address] Name: DELMIS ADAMS Address: home [place], [place] Name: RUPERT PALMER Address: home [address] [facility], [place] Name: DESIRAE CHAUDHARY Address: home [address] [place], [place]
--- OUTSIDE RECORDS SUMMARY | 2024-07-15 15:47 | XMS_ITS | Continuity of Care Document ---
Author Organization [facility] Address [address] [place] [address]- Care Team Providers Care Distance Education Coordinator Name Role Phone Jacob DORAN, Santi Primary Care Physician [facility] Date[facility]s): 12/12/23 - 01/11/24 [facility] [address] [place], [place] [address] Allergies, Adverse Reactions, Alerts Substance Reaction Severity Status nitrofurantoin Pruritus Rash Active morphine Active Lopid Muscle cramps Myalgia and myositis unspecified Active Percocet Active doxycycline Hives Active predniSONE Anaphylaxis Active benzonatate Speech impediment Active Biaxin Upset [...] 1Admin Note: done @ [facility],form received 2Result Comment: [07/31/2015] [facility] 3Admin Note: [facility] 4Admin Note: vis sheet given. 5Admin Note: work 6Admin Note: given at [facility] in [place] 7Admin Note: per pt, done at [facility] 8Admin Note: done @ [facility], form received 9Admin Note: given at work 10Admin Note: given in the fall 11Result Comment: [id number] 12Result Comment: [08/31/2018] [id number] 13Result Comment: [08/24/2015] given w/out incident 14Admin [...] tablet, 3 Refills, Maintenance, 01/17/23 12:44:00 EDT, [facility] 78[facility], 156.15, cm, 11/29/22 14:40:00 EST, Height, 79.5, [...] 90 Unknown,1 Refills, Maintenance, 06/10/23 8:18:00 EDT, [facility] 8[facility], 90, USE 1 SPRAY IN BOTH NOSTRILS [...] Refills, Soft Stop, 11/06/23 9:46:00 EST, Tablet, [facility]/pharmacy #1660, Partial fill upon patient request if the prescription is for a schedule II opioid drug., 155, cm, 11/06/23 9:08:00 EST, Height, 83.7... Start Date: 11/06/23 Status: Ordered EpiPen 2-Tramaine 0.3 mg injectable kit = 0.3 mg, Intramuscular, Once, PRN Anaphylactic Reaction, may repeat if necessary, # 1 each, 11 Refills, Soft Stop, 03/14/23 15:31:00 EDT, [facility]/pharmacy #2476, Partial fill upon patient request if theprescription is for a schedule II opioid drug., 155... Start Date: 03/14/23 Status: Ordered fexofenadine 180 mg oral tablet 1 tablet = 180 mg, By Mouth, Daily, PRN for allergy symptoms, # 90 tablet, 4 Refills, Maintenance, 09/02/23 11:04:00 EDT, Tablet, [facility]/pharmacy #2476, Partial fill upon patient request if the prescription is for a schedule II opioid drug., 155, cm, ... Start Date: 09/02/23 Stop Date: 11/25/24 Status: Ordered fluconazole 150 mg oral tablet 1 tablet = 150 mg, By Mouth, Once, repeat dose if still having symptoms in 72 hours, # 2 tablet, 0 Refills, Soft Stop, 12/22/23 13:26:00 EST, Tablet, [facility]/pharmacy #2476, Partial fill upon patient request if the prescription is for a schedule II opioid... Start Date: 12/22/23 Status: Ordered ibuprofen 800 mg oral tablet 1, tablet, By Mouth, 3 times a day, X30 DAYS, STOP ASPIRIN WHILE TAKING THIS., # 90 tablet, Refills1, Maintenance, 12/04/23 7:25:00 EST, Route to Pharmacy Electronically, [facility]ORE 38997, 155, cm, 11/18/23 16:29:00 EST, Height, 83.7, kg, 11/06/23 9:0... Start Date: 12/04/23 Status: Ordered levothyroxine 0.05 mg oral tablet 1 tablet, By Mouth, Daily, # 90 tablet, 3 Refills, Maintenance, 08/12/23 15:31:00 EDT, [facility]/pharmacy#2476, 155, cm, 08/12/23 15:09:00 EDT, Height, 83.9, kg, 03/13/23 4:46:00 EDT, Dry Weight Start Date: 08/12/23 Stop Date: 08/06/24 Status: Ordered montelukast 10 mg oral tablet 1, tablet, By Mouth, Daily, # 90 tablet, Refills 3, Maintenance, 11/23/23 8:40:00 EST, Route to Pharmacy Electronically, [facility] STORE 16537, 155, cm, 11/18/23 16:29:00 EST, Height, 83.7, [...] 4 Refills, Maintenance, 03/28/23 13:04:00 EDT, Aerosol, [facility]/pharmacy #2476, replaced Proventil that is not available, 155, cm, 03/13/23 11:02:00 EDT, Height, 83.9, kg, 03/13/23 4:46:00 EDT... Start Date: 03/28/23 Stop Date: 08/25/23 Status: Ordered Zetia 10 mg oral tablet 1 tablet = 10 mg, By Mouth, Daily, # 30 tablet, 1 Refills, Maintenance, 10/28/23 10:28:00 EST, Tablet, [facility]/pharmacy #2476, Partial fill upon patient request [...] Member Role: Primary Care Nurse Address: Address: [address] [place] [address]- Name: Talia Matute RN Position: [facility] RN Member Role: Primary Care Nurse Name: Santi James MD Position: [facility] Physician - Primary Care Member Role: PCP Address: Address: [address] [place] [address] Adult & [place] [address]- Care Team Related Persons Name: PITER BAILEY Address: home [address] [place] [address] Name: DELMIS ADAMS Address: home [place], [place] Name: RUPERT PALMER Address: home [address] [place], [place] Name: DESIRAE CHAUDHARY Address: home [address] [place], [place]
--- OUTSIDE RECORDS SUMMARY | 2024-07-15 15:47 | XMS_ITS | Continuity of Care Document ---
Author Organization [facility] Address [address] [place] [address]- Care Team Providers Care Banana Expert Name Role Phone Santi James MD Primary Care Physician Encounter [facility] Date(s): 12/03/19 - 12/10/19 [facility] [address] [place] [address]- [facility] Encounter Diagnosis Cough(Discharge Diagnosis) - 12/01/19 Attending Physician: Edmund Cardozo MD Referring Physician: Santi James MD Allergies, [...] @ [facility], form received 4Result Comment: [id number] 5Result Comment: [08/31/2018] [id number] 6Result Comment: [08/24/2015] given w/out incident 7Admin Note: done @ [facility],form received 8Result Comment: [07/31/2015] [facility] 9Admin Note: done @ [facility] 10Admin Note: vis sheet given. 11Admin Note: work 12Admin Note: given at [facility] 13Admin Note: per pt, done at [facility] 14Admin Note: per pt 15Admin Note: [facility] Medications acetaminophen 650 mg oral tablet, extended release 1 tablet = 650 mg, By Mouth, Every 8 hours, PRN as needed for pain, for 30 days, # 100 tablet, 1 Refills, Acute 02/01/20 11:16:00 EDT, 12/03/19 11:16:00 EST, ER Tablet, [facility]/pharmacy #2476, 156, cm, 12/03/19 8:37:00 [...] Refills, Maintenance, 12/01/19 12:54:00 EST, Solution, [facility]/pharmacy #2476, 156, cm, 12/01/19 12:40:00 EST, Height, 79.6, kg, 03/10/19 14:10:00 EDT, Dry Weight Start Date: 12/01/19 Stop Date: 04/29/20 Status: Ordered albuterol CFC free 90 mcg/inh inhalation aerosol 2, puffs, Inhalation, Every 4 hours, PRN, # 9 Gm, Refills 0, Tot. Refills 0, Maintenance, 10/28/17 14:12:34, Aerosol, Route to Pharmacy Electronically, [id number], [facility]/pharmacy #1972, Compound Start Date: 10/28/17 [...] 12/11/19 12:54:00 EST, 12/01/19 12:54:00 EST, Tablet, [facility]/pharmacy #2476, replaces doxycycline which gave her hives, [...] 08/16/19 14:35:23 EDT, Route to Pharmacy Electronically, [id number], [facility]/pharmacy #2716, increase in dose Start Date: 08/16/19 Stop [...] 09/13/19 13:49:27 EST, Route to Pharmacy Electronically, [id number], [facility]/pharmacy #2476 Start Date: 09/13/19 Stop [...] Dates Health Status Clini [facility] Service Informant Cough Discharge Diagnosis 12/01/19 Vital Signs Most recent to oldest [Reference Range]: 1 Height 156 cm (12/01/19 12:40 PM) Weight 79.2 kg (12/01/19 12:40 PM) Oxygen Saturation [94-100 %] 98 % (12/01/19 12:40 PM) Pulse Rate [55-90 bpm] 79 bpm (12/01/19 12:40 PM) Body Mass Index [18.5-24.99] 32.54 *>HHI* (12/01/19 12:40 PM) Blood Pressure [90-138/55-84 mm Hg] 98/5 0mm Hg (12/01/19 12:40 PM) Temperature [96.8-100.4 DegF] 98.6 DegF (12/01/19 12:40 PM) Blood pressure sites Arm, left (12/01/19 12:40 PM) Temperature Route Oral (12/01/19 12:40 PM) Social History Social History Type Response Smoking Status Never smoker entered on: 10/12/14 Sex
--- OUTSIDE RECORDS SUMMARY | 2024-07-15 15:47 | XMS_ITS | Continuity of Care Document ---
Author Organization [facility] Address [address] [place] [address]- Care Team Providers Care Special Needs Tutor Name Role Phone Santi James MD Primary Care Physician [facility] Date[facility]s): 02[facility]06[facility]24 - 03/07/24 [facility] [address] [place], [place] [address] Allergies, Adverse Reactions, Alerts Substance [...] Note: work 6Admin Note: given at [facility] in [place] 7Admin Note: per pt, done at [facility] 8Admin Note: done @ [facility], form received 9Admin Note: given at work 10Admin Note: given in the fall 11Result Comment: [id number] 12Result Comment: [08/31/2018] [id number] 13Result Comment: [08/24/2015] given w/out incident 14Admin [...] tablet, 3 Refills, Maintenance, 01/17/23 12:44:00 EDT, [facility] 38723, 156.15, cm, 11/29/22 14:40:00 EST, Height, 79.5, [...] 90 Unknown,1 Refills, Maintenance, 06/10/23 8:18:00 EDT, [facility] 81235, 90, USE 1 SPRAY IN BOTH NOSTRILS [...] Refills, Soft Stop, 03/14/23 15:31:00 EDT, [facility], Partial fill upon patient request if theprescription [...] 12/04/23 7:25:00 EST, Route to Pharmacy Electronically, [facility] 213[facility], 155, cm, 11/18/23 16:29:00 EST, Height, 83.7, [...] 11/23/23 8:40:00 EST, Route to Pharmacy Electronically, [facility] 72624, 155, cm, 11/18/23 16:29:00 EST, Height, 83.7, [...] Team Personnel Name: Geni Marr NP [facility] Associate Professional Member Role: Primary Care Nurse Address: Address: [address] [place] [address]- Name: Talia Matute RN Position[facility] RN Member Role: Primary Care Nurse Name: Darshan Benz RN Position: [facility] Outreach Member Role: Primary Care Nurse Name: Santi James MD Position: [facility] Physician - Primary Care Member Role: PCP Address: Address: [address] [place] [address] Adult & [place] [address]- Care Team Related Persons Name: PITER BAILEY Address: home [address] [place] [address] Name: DELMIS ADAMS Address: home [address] [place], [place] Name: RUPERT PALMER Address: home [address] [place], [place] Name: DESIRAE CHAUDHARY Address: home [address] [place], [place]
--- OUTSIDE RECORDS SUMMARY | 2024-07-15 15:47 | XMS_ITS | Continuity of Care Document ---
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 5Admin Note: work 6Admin Note: given at [facility] [place] 7Admin Note: per pt, done at [facility] 8Admin Note: done @ [facility], form received 9Admin Note: given at work 10Admin Note: given in the fall 11Result Comment: [id number] 12Result Comment: [08/31/2018] [id number] 13Result Comment: [08/24/2015] given w/out incident 14Admin [...] tablet, 3 Refills, Maintenance, 01/17/23 12:44:00 EDT, [facility], 156.15, cm, 11/29/22 14:40:00 EST, Height, 79.5, [...] 90 Unknown,1 Refills, Maintenance, 06/10/23 8:18:00 EDT, [facility] 85198, 90, USE 1 SPRAY IN BOTH NOSTRILS [...] Refills, Soft Stop, 11/06/23 9:46:00 EST, Tablet, [facility]/pharmacy #2476, Partial fill upon patient request if the prescription is for a schedule II opioid drug., 155, cm, 11/06/23 9:08:00 EST, Height, 83.7... Start Date: 11/06/23 Status: Ordered EpiPen 2-Tramaine 0.3 mg injectable kit = 0.3 mg, Intramuscular, Once, PRN Anaphylactic Reaction, may repeat if necessary, # 1 each, 11 Refills, Soft Stop, 03/14/23 15:31:00 EDT, [facility]/pharmacy #[id number], Partial fill upon patient request if theprescription is for a schedule II opioid drug., 155... Start Date: 03/14/23 Status: Ordered fexofenadine 180 mg oral tablet 1 tablet = 180 mg, By Mouth, Daily, PRN for allergy symptoms, # 90 tablet, 4 Refills, Maintenance, 09/02/23 11:04:00 EDT, Tablet, [facility]/pharmacy #2476, Partial fill upon patient request if the prescription is for a schedule II opioid drug., 155, cm, ... Start Date: 09/02/23 Stop Date: 11/25/24 Status: Ordered gentamicin 0.3% ophthalmic solution 1 drops, Eyes, Both, 4 times a day, for 7 days, # 5 mL, 0 Refills, Acute 11/18/23 17:15:00 EST, 11/11/23 17:15:00 EST, Solution, [facility]/pharmacy #2476, Partial fill upon patient request if [...] tablet, By Mouth, Daily, Refills 0, Maintenance, 05/12/23 15:42:00 EDT, Partial fill uponpatient request if [...] Dates Health Status Clinical Service Informant Acute conjunctivitis Discharge Diagnosis 11/06/23 Acute sinusitis Discharge Diagnosis 11/06/23 IgA deficiency Discharge Diagnosis 11/06/23 Vital Signs Most recent to oldest [Reference Range]: 1 Height 155 cm (11/06/23 9:08 AM) Weight 83.7 kg (11/06/23 9:08 AM) Oxygen Saturation [94-100 %] 99 % (11/06/23 9:08 AM) Pulse Rate [55-90 bpm] 63 bpm (11/06/23 9:08 AM) Body Mass Index [18.5-24.99 kg/m2] 34.84 kg/m2 *>HHI* (11/06/23 9:08 AM) Blood Pressure [90-138/55-84 mm Hg] 137/ 72mm Hg (11/06/23 9:08 AM) Mode of Delivery (Oxygen) Room air (11/06/23 9:08 AM) Blood pressure sites Arm, left (11/06/23 9:08 AM) Dry Weight 83.7 kg (11/06/23 9:08 AM) Weight Obtained Via Standing scale (11/06/23 9:08 AM) Dry Weight Obtained Via Standing scale (11/06/23 9:08 AM) Social History Social History Type Response Smoking Status Never smoker entered on: 10/12/14 Sex Note * Zenobia Newton: PERFORM, SIGN, VERIFY Event Display: Patient Education/Instruction Authored Date: [id number] [facility] *[facility] Clinical Summary Name IAN BAILEY Age 58 Years 1965 PCP Jacob DORAN, Santi PCP Visit Date 11/06/2023 09:05:00 Patient Instructions use afrin??twice daily for 3 days?? use eye drops- prescribed today, stop gentamicin warm compresses start zpak over the weekend if congestion not better see hand molder and caster. Additional Instructions: Scheduled Appointments?? Future Appointments ?*No??[facility]ult[facility]Ped ?[address]??[place],??[place],??[address] ?Phone:??--?Fax:??-- ?Appt. Date:??01/23/2024?4:20 PM ?Scheduled Provider:??Jacob DORAN, Santi Follow-Up Instructions ?? Diagnosis Medications: Please continue your medications until treatment is completed or stopped by your provider. Discuss any questions related to medications with your provider. New Medications [facility]/pharmacy #[id number], [address], [place] [id number], [phone] Azithromycin (Zithromax Z-Tramaine 250 mg oral tablet) as directed on package labeling. Refills: 0. Next Dose: Fluconazole (Diflucan 150 mg oral tablet) 1 tab(s) Oral once. Refills: 0. Next Dose: Polymyxin B-Trimethoprim Ophthalmic (polymyxin B-trimethoprim ophthalmic 78754 u-1 mg/ml solution) 1 Drops Both eyes 4 times a day for 7 Days. Refills: 0. Next Dose: Medications to Continue [...] Dose: No Longer Take the Following Medications Gentamicin Ophthalmic (gentamicin 0.3% ophthalmic solution) 1 drops left eye x 3 times a day x 1 week. Refills: 0. Allergy Info:?? tiZANidine; Demerol; Levaquin; Topamax; Lipitor; Biaxin; Percocet; Lopid; benzonatate; predniSONE; morphine; nitrofurantoin; doxycycline Medications Given This Visit Future Orders ?No future orders Vital Signs Height 155 cm Weight 83.7 kg BMI 34.84 kg/m2 Blood Pressure 137 mm Hg/72 mm Hg Temperature Pulse Rate 63 bpm Respiratory Rate 02 Sat Mode of Delivery 99 %/Room air You can now view a summary of your hospital visit from the comfort of your home through a free online portal called [employer]. [employer] is a website that allows you to securely view your medical information including discharge summary, medications and follow-up visits. ??You can alsosend a secure electronic message to your doctor???s office to request appointments, renew medications or just ask a question. You can enroll at [email or web address] or register during your next office visit. [...] primary care provider, you may find a [facility] provider by calling [facility] at [phone]. [facility], in keeping with [facility] guidance, no longer requires face masks [...] Personnel Name: Justa HARRIS, Geni Orlando Position: [facility] Associate Professional Member Role: Primary Care Nurse Address: Address: [address] [place] [address]- Name: Talia Matute RN Position: [facility] RN Member Role: Primary Care Nurse Name: Santi James MD Position: [facility] Physician - Primary Care Member Role: PCP Address: Address: [address] [place] [address] Adult & [place] [address]- Care Team Related Persons Name: PITER BAILEY Address: home [address] [place] [address] Name: DELMIS ADAMS Address: home [place], [place] Name: RUPERT PALMER Address: home [address] [place], [place] Name: DESIRAE CHAUDHARY Address: home [address] [place], [place]
--- OUTSIDE RECORDS SUMMARY | 2024-07-15 15:47 | XMS_ITS | Continuity of Care Document ---
Author Organization [facility] Address [address] [place] [address]- Care Team Providers Care Family And Consumer Sciences Teacher Name Role Phone Santi James MD Primary Care Physician [facility]counter [facility] Date(s): 06/06/22 - 07/06/22 [facility] [address] [place], [place] [address] Allergies, Adverse Reactions, Alerts Substance Reaction [...] (Td) 11/03/99 Given 1Admin Note: done @ [facility],form received 2Result Comment: [07/31/2015] [facility] 3Admin Note: done @ [facility] 4Admin Note: vis sheet given. 5Admin Note: work 6Admin Note: given at [facility] [place] 7Admin Note: per pt, done at [facility] 8Admin Note: done @ [facility], form received 9Admin Note: given at work 10Admin Note: given in the fall 11Result Comment: [id number] 12Result Comment: [08/31/2018] [id number] 13Result Comment: [08/24/2015] given w/out incident 14Admin Note: per pt 15Admin Note: [facility] Medications acetaminophen 650 mg oral tablet, extended release 1 tablet, By Mouth, Every 8 hours, PRN NEEDED FOR PAIN, # 90 tablet, 3 Refills, [facility] 53575,156, cm, 04/04/22 7:36:00 EDT, Height, 78.9, kg, 04/04/22 7:36:00 EDT, Dry Weight Start Date: 04/08/22 Status: Ordered Albuterol (Eqv-ProAir HFA) 90 mcg/inh inhalation aerosol 2 puffs, Inhalation, Every 6 hours, PRN Wheezing/Shortness of Breath, # 6.7 Gm, 11 Refills, Maintenance, 02/26/22 9:18:00 EDT, [facility]/pharmacy #2476, Partial fill upon patient [...] each, 4 Refills, Maintenance, 02/07/22 12:08:00 EDT, [place], [facility]/pharmacy #2476, Partial fill upon patient request if the prescription is for a schedule II opioid drug., 1 sprays Nares... Start Date: 02/07/22 Stop Date: 07/07/22 Status: Ordered cetirizine 10 mg oral tablet 1 tablet, By Mouth, Daily, # 90 tablet, 3 Refills, [facility] 77941, 156, cm, 03/18/22 8:26:00 EDT, Height Start [...] 0 Refills, Soft Stop, 06/20/22 13:59:00 EDT, Tablet,[facility]6406, Partial fill upon patient request if the prescription is for a schedule II opioid drug., 155, cm, 06/06/22 11:17:00 EDT, Height, 79... Start Date: 06/20/22 Status: Ordered fluticasone 50 mcg/inh nasal spray See Instructions, USE 1 SPRAY IN EACH NOSTRL 2 TIMES A DAY X 5 DAYS, AND THEN DAILY THEREAFTER, # 48 mL, 1 Refills, [facility] 24710, 90, USE 1 SPRAY IN EACH NOSTRL 2 TIMES A DAY X 5 DAYS, AND THEN DAILY THEREAFTER, 156, cm, 04/04/22 7:36:00 EDT, Heigh... Start Date: 04/30/22 Status: Ordered levothyroxine 0.05 mg oral tablet See Instructions, TAKE 1 TABLET BY MOUTH EVERY DAY, # 90 tablet, 1 Refills, [facility] 89133, 156, cm, 02/07/22 11:31:00 EDT, Height Start Date: 02/19/22 Status: Ordered loratadine 10 mg oral tablet 10 mg, 1, tablet, By Mouth, Daily, # 30 tablet, Refills 11, Tot. Refills 11, Maintenance, 02/26/22 9:18:00 EDT, Route to Pharmacy Electronically, [facility]/pharmacy #2476, Partial fill upon patient [...] 02/26/22 9:18:00 EDT, Route to Pharmacy Electronically, [facility]/pharmacy #2476, Partial fill upon patient [...] 9:18:00 EDT, Aerosol, Route to Pharmacy Electronically, [id number]... Start Date: 02/26/22 Status: Ordered Vitamin D3 [...] pack/packet, 0 Refills, Maintenance, 06/17/22 17:01:00 EDT, [facility]/pharmacy #2476, Partial fill upon patient [...] Team Personnel Name: Santi James MD Address: [address] [place] [address] Adult & Pediatric Medicine [address]
--- OUTSIDE RECORDS SUMMARY | 2024-07-15 15:47 | XMS_ITS | Continuity of Care Document ---
Author Organization [facility] Address [address] [place] [address]- Care Team Providers Care Clinical Nursing Coordinator Name Role Phone Jacob DORAN, Santi Primary Care Physician [facility]counter [facility] Date(s): 01/23/23 - 02/22/23 [facility] [address] [place], [place] [address] Allergies, Adverse Reactions, Alerts [...] 5Admin Note: work 6Admin Note: given at [facility] 7Admin Note: per pt, done at [facility] 8Admin Note: done @ [facility], form received 9Admin Note: given at work 10Admin Note: given in the fall 11Result Comment: [id number] 12Result Comment: [08/31/2018] [id number] 13Result Comment: [08/24/2015] given w/out incident 14Admin Note: per pt 15Admin Note: [facility] Medications acetaminophen 650 mg oral tablet, extended release 1 tablet, By Mouth, Every 8 hours, PRN NEEDED FOR PAIN, # 90 tablet, 3 Refills, Maintenance, 01/17/23 12:44:00 EDT, [facility]ORE 84486, 156.15, cm, 11/29/22 14:40:00 EST, Height, 79.5, kg, 06/06/22 11:17:00 EDT, Dry Weight Start Date: 01/17/23 Status: Ordered Albuterol (Eqv-ProAir HFA) 90 mcg/inh inhalation aerosol 2 puffs, Inhalation, Every 6 hours, PRN Wheezing/Shortness of Breath, # 6.7 Gm, 11 Refills, Maintenance, 08/29/22 9:07:00 EDT, [facility]/pharmacy #2476, [...] each, 10 Refills, Maintenance, 11/25/22 15:18:00 EST, [place], [facility]/pharmacy #2476, replaces 0.15% dose, 1 sprays [...] 16 Gm, 11 Refills, 08/29/22 9:07:00 EDT, [facility]/pharmacy #2476, USE 1 SPRAY IN EACH NOSTRL 2 TIMES A DAYX 5 DAYS, AND THEN DAILY THEREAFTER, 156.15, cm, 10... Start Date: 08/29/22 Status: Ordered levothyroxine 0.05 mg oral tablet See Instructions, TAKE 1 TABLET BY MOUTH EVERY DAY, # 90 tablet, 1 Refills, 09/01/22 19:54:00 EDT, [facility]/pharmacy #2476, 156.15, cm, 08/29/22 8:44:00 EDT, Height, 79.5, kg, 06/06/22 11:17:00 EDT, Dry Weight Start Date: 09/01/22 Status: Ordered loratadine 10 mg oral tablet 10 mg, 1, tablet, By Mouth, Daily, # 30 tablet, Refills 11, Tot. Refills 11, Maintenance, 08/29/22 9:07:00 EDT, Route to Pharmacy Electronically, [facility]/pharmacy #[id number], Partial fill upon patient requestif [...] 1 each, 11 Refills, Maintenance, 11/28/2314:07:00 EST, [facility], Partial fill upon patient [...] 08/29/22 9:07:00 EDT, Route to Pharmacy Electronically, [facility]/pharmacy #[id number], Partial fill upon patient requestif the prescription is for a schedule II opioid lauro... Start Date: 08/29/22 Status: Ordered Symbicort 160mcg/4.5mcg Inhaler 2, puffs, Inhalation, 2 times a day, in the morning and the evening use with spacer chamber rinse mouth and throat after use, # 1 each, Refills 5, Tot. Refills 5, Maintenance, 10/17/22 10:03:00 EST, Aerosol, Route to Pharmacy Electronically, [id number]... Start Date: 10/17/22 Status: Ordered Vitamin D3 [...] Personnel Name: Justa HARRIS, Geni Orlando Position: [facility] Associate Professional Member Role: Primary Care Nurse Address: Address: [address] [place] [address]- Name: Santi James MD Position: [facility] Primary Care Physician Member Role: PCP Address: Address: [address] [place] [address]- Care Team Related Persons Name: PITER BAILEY Address: home [address] [place] [address] Name: DELMIS ADAMS Address: home [place]KNOWN [place], [place] Name: RUPERT PALMER Address: home [address] [place], [place] Name: DESIRAE CHAUDHARY Address: home [address] [place], [place]
--- OUTSIDE RECORDS SUMMARY | 2024-07-15 15:47 | XMS_ITS | Continuity of Care Document ---
Author Organization [facility] Address [address] [place] [address]- Care Team Providers Care Tank Truck Milk Receiver Name Role Phone Santi James MD Primary Care Physician Encounter [facility] Date(s): 03/13/20 - 04/12/20 [facility] [address] [place] [address]- [facility] Attending Physician: Admtr, Ar8 Allergies, Adverse Reactions, Alerts Substance Reaction Severity Status doxycycline Hives Active morphine Active Percocet Active Augmentin hives Active Bactrim DS Stomach cramps Active Levaquin Hives Active nitrofurantoin Pruritus [...] Gi cristel influenza virus vaccine, inactivated 07/02/12 G iven influenza virus vaccine, inactivated [...] 3Admin Note: done @ [facility], form received 4Result Comment: [id number] 5Result Comment: [08/31/2018] [id number] 6Result Comment: [08/24/2015] given w/out incident 7Admin Note: done @ [facility],form received 8Result Comment: [07/31/2015] [facility] 9Admin Note: done @ [facility] 10Admin Note: vis sheet given. 11Admin Note: work 12Admin Note: given at [facility] 13Admin Note: per pt, done at [facility] [...] 10/28/17 14:12:34, Aerosol, Route to Pharmacy Electronically, [id number], [facility]/pharmacy #1972, Compound Start Date: [...] to Pharmacy Electronically, [facility]/pharmacy #2476, increase in dose, 156, cm, [...]
--- OUTSIDE RECORDS SUMMARY | 2024-07-15 15:47 | XMS_ITS | Continuity of Care Document ---
Author Organization [facility] Address [address] [place] [address]- Care Team Providers Care Director Of Speech Pathology Name Role Phone Santi James MD Primary Care Physician [facility]counter [facility] Date(s): 06/12/21 - 07/12/21 [facility] [address] [place], [place] [address] Allergies, Adverse Reactions, Alerts Substance [...] [facility], form received 2Admin Note: done @ [facility],form received 3Result Comment: [07/31/2015] [facility] 4Admin Note: done @ [facility] 5Admin Note: vis sheet given. 6Admin Note: work 7Admin Note: given at [facility] [place] 8Admin Note: per pt, done at [facility] 9Admin Note: given at work 10Admin Note: given in the fall 11Result Comment: [id number] 12Result Comment: [08/31/2018] [id number] 13Result Comment: [08/24/2015] given w/out incident 14Admin Note: per pt 15Admin Note: [facility] Medications acetaminophen 650 mg oral tablet, extended release 1 tablet = 650 mg, By Mouth, Every 8 hours, PRN Pain , Moderate, for 30 days, # 90 tablet, 7 Refills, Acute 10/24/21 12:47:00 EST, 02/26/21 12:47:00 EDT, ER Tablet, [facility] #[id number], 156, cm, 05/11/20 10:31:00 EDT, Height, 78.8, kg, ... Start Date: 02/26/21 Stop Date: 10/24/21 Status: Ordered albuterol 0.083% inhalation solution 3 mL = 2.5 mg, Inhalation, Every 6 hours, PRN for wheezing, Dx: asthma, # 100 each, 4 Refills, Maintenance, 12/01/19 12:54:00 EST, Solution, [facility]/pharmacy #2476, 156, cm, 12/01/19 12:40:00 EST, Height, 79.6, kg, 03/10/19 14:10:00 EDT, Dry Weight Start Date: 12/01/19 Stop Date: 04/29/20 Status: Ordered albuterol CFC free 90 mcg/inh inhalation aerosol 2, puffs, Inhalation, Every 4 hours, PRN, # 1 each, Refills 3, Tot. Refills 3, Maintenance, 03/13/21 8:25:00 EDT, Aerosol, Route to Pharmacy Electronically, [id number], [facility] #[id number], 156, cm, 03/13/21 8:16:00 E... Start Date: [...] 3 Refills, Maintenance, 03/13/21 8:26:00 EDT, Tablet, [facility] #15488, 156, cm, 03/13/21 8:16:00 EDT, Height, 78.8, [...] mL, 0 Refills, Maintenance, 07/25/20 16:52:00 EDT, [place], [facility]/pharmacy #5706, 2 sprays Nares, Both 2 times a day, 156, cm, 03/13/20 10:31:00 EDT, Height, 78.8, kg, 12/20/19 10:35:00 EST, Dry Weight Start Date: 07/25/20 Status: Ordered levothyroxine 0.05 mg oral tablet 1 tablet = 50 mcg, By Mouth, Daily, # 90 tablet, 3 Refills, Maintenance, 03/13/21 8:24:00 EDT, Tablet, [facility] #81283, 156, cm, 03/13/21 8:16:00 EDT, Height, 78.8, kg, 12/20/19 10:35:00 EST, Dry Weight Start Date: 03/13/21 Stop Date: 03/08/22 Status: Ordered montelukast 10 mg oral tablet See Instructions, TAKE 1 TABLET BY MOUTH DAILY, # 90 tablet, Refills 1, Instructions Replace Required Details, Route to Pharmacy Electronically, [facility] #[id number], 156, cm, 03/13/21 8:35:00EDT, Height, 78.8, kg, [...]
--- OUTSIDE RECORDS SUMMARY | 2024-07-15 15:47 | XMS_ITS | Continuity of Care Document ---
Author Organization [facility] Address [address] [place] [address]- Care Team Providers Care Coffee Urn Attendant Name Role Phone Santi James MD Primary Care Physician [facility]counter [facility] Date(s): 11/28/23 - 12/28/23 [facility] [address] [place], [place] [address] Allergies, Adverse Reactions, [...] Given 1Admin Note: done @ [facility],form received 2Result Comment: [07/31/2015] [facility] 3Admin Note: done @ [facility] 4Admin Note: vis sheet given. 5Admin Note: work 6Admin Note: given at [facility] in [place] 7Admin Note: per pt, done at [facility] 8Admin Note: done @ [facility], form received 9Admin Note: given at work 10Admin Note: given in the fall 11Result Comment: [id number] 12Result Comment: [08/31/2018] [id number] 13Result Comment: [08/24/2015] given w/out incident 14Admin [...] 3 Refills, Maintenance, 01/17/23 12:44:00 EDT, [facility] 56049, 156.15, cm, 11/29/22 14:40:00 EST, Height, 79.5, [...] Unknown,1 Refills, Maintenance, 06/10/23 8:18:00 EDT, [facility] 46241, 90, USE 1 SPRAY IN BOTH NOSTRILS [...] Refills, Soft Stop, 11/06/23 9:46:00 EST, Tablet, [facility]/pharmacy #8343, Partial fill upon patient request if the prescription is for a schedule II opioid drug., 155, cm, 11/06/23 9:08:00 EST, Height, 83.7... Start Date: 11/06/23 Status: Ordered EpiPen 2-Tramaine 0.3 mg injectable kit = 0.3 mg, Intramuscular, Once, PRN Anaphylactic Reaction, may repeat if necessary, # 1 each, 11 Refills, Soft Stop, 03/14/23 15:31:00 EDT, [facility]/pharmacy #2476, Partial [...] 12/04/23 7:25:00 EST, Route to Pharmacy Electronically, [facility] STORE 23698, 155, cm, 11/18/23 16:29:00 EST, Height, 83.7, [...] EST, Route to Pharmacy Electronically, [facility], 155, cm, 11/18/23 16:29:00 EST, Height, 83.7, [...] 4 Refills, Maintenance, 03/28/23 13:04:00 EDT, Aerosol, [facility]/pharmacy #2476, replaced Proventil that is not available, 155, cm, 03/13/23 11:02:00 EDT, Height, 83.9, kg, 03/13/23 4:46:00 EDT... Start Date: 03/28/23 Stop Date: 08/25/23 Status: Ordered Zetia 10 mg oral tablet 1 tablet = 10 mg, By Mouth, Daily, # 30 tablet, 1 Refills, Maintenance, 10/28/23 10:28:00 EST, Tablet, [facility]/pharmacy [...] Personnel Name: Justa HARRIS, Geni Orlando Position: [facility] Associate Professional Member Role: Primary Care Nurse Address: Address: [address] [place] [address]- Name: Talia Matute RN Position: [facility] RN Member Role: Primary Care Nurse Name: Santi James MD Position: [facility] Physician - Primary Care Member Role: PCP Address: Address: [address] [place] [address] Adult [place] [address]- Care Team Related Persons Name: PITER BAILEY Address: home [address] [place] [address] Name: DELMIS ADAMS Address: home [place], [place] Name: RUPERT PALMER Address: home [address] [facility], [place] Name: DESIRAE CHAUDHARY Address: home [address] [place], [place]
--- OUTSIDE RECORDS SUMMARY | 2024-07-15 15:47 | XMS_ITS | Continuity of Care Document ---
Author Organization [facility] Address [address] [place] [address]- Care Team Providers Care Shelving Supervisor Name Role Phone Jacob DORAN, Santi Primary Care Physician [facility] 01/[facility]23 - 02/19/23 [facility] [address] [place], [place] [address] Allergies, Adverse Reactions, Alerts Substance [...] 6Admin Note: [facility] at [facility] 7Admin Note: per pt, done at [facility] 8Admin Note: done @ [facility], form received 9Admin Note: given at work 10Admin Note: given in the fall 11Result Comment: [id number] 12Result Comment: [08/31/2018] [id number] 13Result Comment: [08/24/2015] given w/out incident 14Admin Note: per pt 15Admin Note: [facility] Medications acetaminophen 650 mg oral tablet, extended release 1 tablet, By Mouth, Every 8 hours, PRN NEEDED FOR PAIN, # 90 tablet, 3 Refills, Maintenance, 01/17/23 12:44:00 EDT, [facility] STORE [id number], 156.15, cm, 11/29/22 14:40:00 EST, Height, 79.5, kg, 06/06/22 11:17:00 EDT, Dry Weight Start Date: 01/17/23 Status: Ordered Albuterol (Eqv-ProAir HFA) 90 mcg/inh inhalation aerosol 2 puffs, Inhalation, Every 6 hours, PRN Wheezing/Shortness of Breath, # 6.7 Gm, 11 Refills, Maintenance, 08/29/22 9:07:00 EDT, [facility]/pharmacy #[id number], Partial fill upon [...] each, 10 Refills, Maintenance, 11/25/22 15:18:00 EST, [place], [facility]/pharmacy #[id number], replaces 0.15% dose, [...] 16 Gm, 11 Refills, 08/29/22 9:07:00 EDT, [facility]/pharmacy #[id number], USE 1 SPRAY IN EACH NOSTRL 2 TIMES A DAYX 5 DAYS, AND THEN DAILY THEREAFTER, 156.15, cm, 10... Start Date: 08/29/22 Status: Ordered levothyroxine 0.05 mg oral tablet See Instructions, TAKE 1 TABLET BY MOUTH EVERY DAY, # 90 tablet, 1 Refills, 09/01/22 19:54:00 EDT, [facility]/pharmacy #[id number], 156.15, cm, 08/29/22 8:44:00 EDT, Height, 79.5, kg, 06/06/22 11:17:00 EDT, Dry Weight Start Date: 09/01/22 Status: Ordered loratadine 10 mg oral tablet 10 mg, 1, tablet, By Mouth, Daily, # 30 tablet, Refills 11, Tot. Refills 11, Maintenance, 08/29/22 9:07:00 EDT, Route to Pharmacy Electronically, [facility]/pharmacy #[id number], Partial fill upon [...] 1 each, 11 Refills, Maintenance, 11/28/2314:07:00 EST, [facility], Partial fill upon patient request [...] 08/29/22 9:07:00 EDT, Route to Pharmacy Electronically, [facility]/pharmacy #[id number], Partial fill upon patient requestif the prescription is for a schedule II opioid lauro... Start Date: 08/29/22 Status: Ordered Symbicort 160mcg/4.5mcg Inhaler 2, puffs, Inhalation, 2 times a day, in the morning and the evening use with spacer chamber rinse mouth and throat after use, # 1 each, Refills 5, Tot. Refills 5, Maintenance, 10/17/22 10:03:00 EST, Aerosol, Route to Pharmacy Electronically, [id number]... Start Date: 10/17/22 Status: Ordered Vitamin D3 [...] Personnel Name: Justa HARRIS, Geni Orlando Position: [facility] Associate Professional Member Role: Primary Care Nurse Address: Address: [address] [place] [address]- Name: Santi James MD Position: [facility] Primary Care Physician Member Role: PCP Address: Address: [address] [place] [address]- Care Team Related Persons Name: PITER BAILEY Address: home [address] [place] [address] Name: DELMIS ADAMS Address: home [address] [place], [place] Name: RUPERT PALMER Address: home [address] [place], [place] Name: DESIRAE CHAUDHARY Address: home [address] [place], [place]
--- OUTSIDE RECORDS SUMMARY | 2024-07-15 15:47 | XMS_ITS | Continuity of Care Document ---
Author Organization [facility] Address [address] [place] [address]- Care Team Providers Care Slubber Operator Name Role Phone Santi James MD Primary Care Physician [place] [facility] [place]27[place] - 05/05/[address] [address]- Attending Physician: Raffy Mayo MD Admitting Physician: Raffy Mayo MD Referring Physician: Raffy Mayo MD Allergies, Adverse Reactions, Alerts Substance Reaction [...] 6Admin Note: given at [facility] [place] 7Admin Note: per pt, done at [facility] 8Admin Note: done @ [facility], form received 9Admin Note: given at work 10Admin Note: given in the fall 11Result Comment: [id number] 12Result Comment: [08/31/2018] [id number] 13Result Comment: [08/24/2015] given w/out incident 14Admin Note: per pt 15Admin Note: mass [facility] Medications acetaminophen 650 mg oral tablet, extended release 1 tablet, By Mouth, Every 8 hours, PRN NEEDED FOR PAIN, # 90 tablet, 3 Refills, [facility] 15591,156, cm, 04/04/22 7:36:00 EDT, Height, 78.9, kg, 04/04/22 7:36:00 EDT, Dry Weight Start Date: 04/08/22 Status: Ordered Albuterol (Eqv-ProAir HFA) 90 mcg/inh inhalation aerosol 2 puffs, Inhalation, Every 6 hours, PRN Wheezing/Shortness of Breath, # 6.7 Gm, 11 Refills, Maintenance, 02/26/22 9:18:00 EDT, [facility]/pharmacy #[id number], Partial fill upon [...] each, 4 Refills, Maintenance, 02/07/22 12:08:00 EDT, [place], [facility]/pharmacy #[id number], Partial fill upon patient request if the prescription is for a schedule II opioid drug., 1 sprays Nares... Start Date: 02/07/22 Stop Date: 07/07/22 Status: Ordered cetirizine 10 mg oral tablet 1 tablet, By Mouth, Daily, # 90 tablet, 3 Refills, [facility] 53812, 156, cm, 03/18/22 8:26:00 EDT, Height Start [...] 0 Refills, Soft Stop, 04/08/22 13:39:00 EDT, Tablet,[facility]/pharmacy #[id number], Partial fill upon patient request if the prescription is for a schedule II opioid drug., 156, cm, 04/04/22 7:36:00 EDT, Height, 78.... Start Date: 04/08/22 Status: Ordered fluticasone 50 mcg/inh nasal spray See Instructions, USE 1 SPRAY IN EACH NOSTRL 2 TIMES A DAY X 5 DAYS, AND THEN DAILY THEREAFTER, # 48 mL, 1 Refills, [facility]ORE 28294, 90, USE 1 SPRAY IN EACH NOSTRL 2 TIMES A DAY X 5 DAYS, AND THEN DAILY THEREAFTER, 156, cm, 04/04/22 7:36:00 EDT, [place]... Start Date: 04/30/22 Status: Ordered levothyroxine 0.05 mg oral tablet See Instructions, TAKE 1 TABLET BY MOUTH EVERY DAY, # 90 tablet, 1 Refills, [facility] 40104, 156, cm, 02/07/22 11:31:00 EDT, Height Start Date: 02/19/22 Status: Ordered loratadine 10 mg oral tablet 10 mg, 1, tablet, By Mouth, Daily, # 30 tablet, Refills 11, Tot. Refills 11, Maintenance, 02/26/22 9:18:00 EDT, Route to Pharmacy Electronically, [facility]/pharmacy #[id number], Partial fill upon patient requestif [...] 02/26/22 9:18:00 EDT, Route to Pharmacy Electronically, [facility]/pharmacy #[id number], Partial fill upon patient requestif [...] 9:18:00 EDT, Aerosol, Route to Pharmacy Electronically, [id number]... Start Date: 02/26/22 Status: Ordered Vitamin D3 [...]
--- OUTSIDE RECORDS SUMMARY | 2024-07-15 15:47 | XMS_ITS | Continuity of Care Document ---
Author Organization [facility] Address [address] [place] [address]- Care Team Providers Care Rcis Name Role Phone Santi James MD Primary Care Physician [facility]): 10/17/22 - 11/16/22 [facility] [address] [place], [place] [address] Allergies, Adverse Reactions, [...] Refusal Reason influenza virus vaccine, inactivated 08/01/22 Intin rded influenza virus vaccine, inactivated 08/09/21 Nitin [...] Note: given at [facility] [place] 7Admin Note: per pt, done at [facility] 8Admin Note: done @ [facility], form received 9Admin Note: given at work 10Admin Note: given in the fall 11Result Comment: [id number] 12Result Comment: [08/31/2018] [id number] 13Result Comment: [08/24/2015] given w/out incident 14Admin Note: per pt 15Admin Note: [facility] Medications acetaminophen 650 mg oral tablet, extended release 1 tablet, By Mouth, Every 8 hours, PRN NEEDED FOR PAIN, # 90 tablet, 3 Refills, [facility] 16112,156, cm, 04/04/22 7:36:00 EDT, Height, 78.9, kg, [...] symptoms, # 1 each, 6 Refills, Maintenance, 11/05/22 13:48:00 EST, [place], [facility]/pharmacy #2476, Partial fill upon patient request if the prescription is for a schedule II opioid drug., 1 sprays Nares... Start Date: 11/05/22 Stop Date: 06/03/23 Status: Ordered cetirizine 10 mg oral tablet 1 tablet, By Mouth, Daily, # 90 tablet, 3 Refills, [facility] 60[facility], 156, cm, 03/18/22 8:26:00 EDT, Height Start [...] 2 Refills, Maintenance, 10/08/22 9:48:00 EST, Tablet, [facility]/pharmacy #2476, replaces diclofenac, 156.15, [...] to Pharmacy Electronically, [facility]/pharmacy #[id number], Partial fill upon patient requestif the prescription is for a schedule II opioid lauro... Start Date: 08/29/22 Status: Ordered Symbicort 160mcg/4.5mcg Inhaler 2, puffs, Inhalation, 2 times a day, in the morning and the evening use with spacer chamber rinse mouth and throat after use, # 1 each, Refills 5, Tot. Refills 5, Maintenance, 10/17/22 10:03:00 EST, Aerosol, Route to Pharmacy Electronically, [id number]... Start Date: 10/17/22 Status: Ordered Vitamin D3 [...] Personnel Name: Justa HARRIS, Geni Orlando Position: [facility] Associate Professional Member Role: Primary Care Nurse Address: Address: [address] [place] [address]- Name: Santi James MD Position: [facility] Primary Care Physician Member Role: PCP Address: Address: [address] [place], [place] [address] Care Team Related Persons Name: PITER BAILEY Address: home [address] [place] [address] Name: DELMIS ADAMS Address: [place] [address] Name: RUPERT PALMER Address: [address] [place] [address] Name: DESIRAE CHAUDHARY Address: home [address] [place], [place]
--- OUTSIDE RECORDS SUMMARY | 2024-07-15 15:47 | XMS_ITS | Continuity of Care Document ---
Author Organization [facility] Address [address] [place] [address]- Care Team Providers Care Manufacturing Applications Engineer Name Role Phone Jacob DORAN, Santi Primary Care Physician [facility]): 11[facility]17/20 - 12/17/20 [facility] [address] [place], [place] [address] Allergies, Adverse Reactions, Alerts Substance Reaction [...] in the fall 3Admin Note: done @ [facility], form received 4Result Comment: [id number] 5Result Comment: [08/31/2018] [id number] 6Result Comment: [08/24/2015] given w/out incident 7Admin Note: done @ [facility],form received 8Result Comment: [07/31/2015] [facility] 9Admin Note: done @ [facility] 10Admin Note: vis sheet given. 11Admin Note: work 12Admin Note: given at [facility] 13Admin Note: per pt, done at [...] 10/28/17 14:12:34, Aerosol, Route to Pharmacy Electronically, [id number], [facility]/pharmacy #1972, Compound Start Date: 10/28/17 [...] 5 Refills, Maintenance, 10/10/20 12:10:00 EST, Tablet, [facility]/pharmacy #[id number], 156, cm, 03/13/20 10:31:00 [...] 10/05/20 15:45:00 EST, Route to Pharmacy Electronically, [facility] STORE 14452, 156, cm, 03/13/20 10:31:00 EDT, Height, 78.8, kg, 12/20/19 10:35:00 EST, Dry Weight Start Date: 10/05/20 Status: Ordered ipratropium nasal 21 mcg/inh spray 2 sprays, Nares, Both, 2 times a day, # 30 mL, 0 Refills, Maintenance, 07/25/20 16:52:00 EDT, [place], [facility]/pharmacy #2476, 2 sprays Nares, Both 2 times a day, 156, cm, 03/13/20 10:31:00 EDT, Height, 78.8, kg, 12/20/19 10:35:00 EST, Dry Weight Start Date: 07/25/20 Status: Ordered levothyroxine 0.05 mg oral tablet 1 tablet = 50 mcg, By Mouth, Daily, # 90 tablet, 3 Refills, Maintenance, 03/13/20 11:08:00 EDT, Tablet, [facility]/pharmacy #2476, 156, cm, 03/13/20 10:31:00 EDT, Height, 78.8, kg, 12/20/19 10:35:00 EST, Dry Weight Start Date: 03/13/20 Stop Date: 03/08/21 Status: Ordered montelukast 10 mg oral tablet 1, tablet, By Mouth, Daily, # 90 tablet, Refills 2, Tot. Refills 0, Maintenance, 10/05/20 15:45:00 EST, Route to Pharmacy Electronically, [facility] STORE 15518, 156, cm, 03/13/20 10:31:00 EDT, Height, 78.8, [...] Refills, Soft Stop, 09/14/20 8:46:00 EST, Tablet, [facility]/pharmacy #2476, 156,cm, 03/13/20 10:31:00 EDT, Height, 78.8, kg, ... Start Date: 09/14/20 Status: Ordered Qvar Redihaler 40 mcg/inh inhalation aerosol 1 puffs, Inhalation, 2 times a day, rinse mouth and throat after use, # 1 each, 0 Refills, Maintenance, 09/14/20 8:47:00 EST, [facility]/pharmacy #[id number], 1 puffs Inhalation 2 times a [...]
--- OUTSIDE RECORDS SUMMARY | 2024-07-15 15:48 | XMS_ITS | Continuity of Care Document ---
Author Organization [facility] Address [address] [place] [address]- Care Team Providers Care Softball Core Molder Name Role Phone Santi James MD Primary Care Physician [facility]): 06/28/21 - 07/28/21 [facility] [address] [place], [place] [address] [place] Allergies, Adverse Reactions, Alerts [...] Given 1Admin Note: done @ [facility], form received 2Admin Note: done @ [facility],form received 3Result Comment: [07/31/2015] [facility] 4Admin Note: done @ [facility] 5Admin Note: vis sheet given. 6Admin Note: work 7Admin Note: given at [facility] in [place] 8Admin Note: per pt, done at [facility] 9Admin Note: given at work 10Admin Note: given in the fall 11Result Comment: [id number] 12Result Comment: [08/31/2018] [id number] 13Result Comment: [08/24/2015] given w/out incident 14Admin Note: per pt 15Admin Note: [facility] Medications acetaminophen 650 mg oral tablet, extended release 1 tablet = 650 mg, By Mouth, Every 8 hours, PRN Pain , Moderate, for 30 days, # 90 tablet, 7 Refills, Acute 10/24/21 12:47:00 EST, 02/26/21 12:47:00 EDT, ER Tablet, [facility] #[id number], 156, cm, 03/13/20 10:31:00 EDT, Height, 78.8, kg, ... Start Date: 02/26/21 Stop Date: 10/24/21 Status: Ordered albuterol 0.083% inhalation solution 3 mL = 2.5 mg, Inhalation, Every 6 hours, PRN for wheezing, Dx: asthma, # 100 each, 4 Refills, Maintenance, 12/01/19 12:54:00 EST, Solution, [facility]/pharmacy #[id number], 156, cm, 12/01/19 12:40:00 EST, Height, 79.6, kg, 03/10/19 14:10:00 EDT, Dry Weight Start Date: 12/01/19 Stop Date: 04/29/20 Status: Ordered albuterol CFC free 90 mcg/inh inhalation aerosol 2, puffs, Inhalation, Every 4 hours, PRN, # 1 each, Refills 3, Tot. Refills 3, Maintenance, 03/13/21 8:25:00 EDT, Aerosol, Route to Pharmacy Electronically, [id number], [facility] #[id number], 156, cm, 03/13/21 8:16:00 E... Start Date: [...] 3 Refills, Maintenance, 03/13/21 8:26:00 EDT, Tablet, [facility] #12927, 156, cm, 03/13/21 8:16:00 EDT, Height, 78.8, [...] mL, 0 Refills, Maintenance, 07/25/20 16:52:00 EDT, [place], [facility]/pharmacy #8106, 2 sprays Nares, Both 2 times a day, 156, cm, 03/13/20 10:31:00 EDT, Height, 78.8, kg, 12/20/19 10:35:00 EST, Dry Weight Start Date: 07/25/20 Status: Ordered levothyroxine 0.05 mg oral tablet 1 tablet = 50 mcg, By Mouth, Daily, # 90 tablet, 3 Refills, Maintenance, 03/13/21 8:24:00 EDT, Tablet, [facility] #49828, 156, cm, 03/13/21 8:16:00 EDT, Height, 78.8, kg, 12/20/19 10:35:00 EST, Dry Weight Start Date: 03/13/21 Stop Date: 03/08/22 Status: Ordered montelukast 10 mg oral tablet See Instructions, TAKE 1 TABLET BY MOUTH DAILY, # 90 tablet, Refills 1, Instructions Replace Required Details, Route to Pharmacy Electronically, [facility] #[id number], 156, cm, 03/13/21 8:35:00EDT, Height, 78.8, kg, [...]
--- OUTSIDE RECORDS SUMMARY | 2024-07-15 15:48 | XMS_ITS | Continuity of Care Document ---
Author Organization [facility] Address [address] [place] [address]- Care Team Providers Care Welfare Supervisor Name Role Phone Santi James MD Primary Care Physician [facility]): [facility]22 - 11/16/22 [facility] [address] [place], [place] [address] Attending Physician: [...] Given 1Admin Note: done @ [facility],form received 2Result Comment: [07/31/2015] [facility] 3Admin Note: done @ [facility] 4Admin Note: vis sheet given. 5Admin Note: work 6Admin Note: given at [facility] [place] 7Admin Note: per pt, done at [facility] 8Admin Note: done @ [facility], form received 9Admin Note: given at work 10Admin Note: given in the fall 11Result Comment: [id number] 12Result Comment: [08/31/2018] [id number] 13Result Comment: [08/24/2015] given w/out incident 14Admin Note: per pt 15Admin Note: [facility] Medications acetaminophen 650 mg oral tablet, extended release 1 tablet, By Mouth, Every 8 hours, PRN NEEDED FOR PAIN, # 90 tablet, 3 Refills, [facility] [address]24,156, cm, 04/04/22 7:36:00 EDT, Height, 78.9, kg, 04/04/22 7:36:00 EDT, Dry Weight Start Date: 04/08/22 Status: Ordered Albuterol (Eqv-ProAir HFA) 90 mcg/inh inhalation aerosol 2 puffs, Inhalation, Every 6 hours, PRN Wheezing/Shortness of Breath, # 6.7 Gm, 11 Refills, Maintenance, 08/29/22 9:07:00 EDT, [facility]/pharmacy #2476, Partial fill upon [...] each, 6 Refills, Maintenance, 11/05/22 13:48:00 EST, [place], [facility]/pharmacy #2476, Partial fill upon patient request if the prescription is for a schedule II opioid drug., 1 sprays Nares... Start Date: 11/05/22 Stop Date: 06/03/23 Status: Ordered cetirizine 10 mg oral tablet 1 tablet, By Mouth, Daily, # 90 tablet, 3 Refills, [facility] [address]7084, 156, cm, 03/18/22 8:26:00 EDT, Height Start [...] 16 Gm, 11 Refills, 08/29/22 9:07:00 EDT, [facility]/pharmacy #2476, USE 1 SPRAY IN EACH NOSTRL 2 TIMES A DAYX 5 DAYS, AND THEN DAILY THEREAFTER, 156.15, cm, 10... Start Date: 08/29/22 Status: Ordered levothyroxine 0.05 mg oral tablet See Instructions, TAKE 1 TABLET BY MOUTH EVERY DAY, # 90 tablet, 1 Refills, 09/01/22 19:54:00 EDT, [facility]/pharmacy #2476, 156.15, cm, 08/29/22 8:44:00 EDT, Height, 79.5, kg, 06/06/22 11:17:00 EDT, Dry Weight Start Date: 09/01/22 Status: Ordered loratadine 10 mg oral tablet 10 mg, 1, tablet, By Mouth, Daily, # 30 tablet, Refills 11, Tot. Refills 11, Maintenance, 08/29/22 9:07:00 EDT, Route to Pharmacy Electronically, [facility]/pharmacy #[id number], Partial fill upon patient requestif the prescription is for a schedule II opioid lauro... Start Date: 08/29/22 Status: Ordered meloxicam 15 mg oral tablet 1 tablet = 15 mg, By Mouth, Daily, # 30 tablet, 2 Refills, Maintenance, 10/08/22 9:48:00 EST, Tablet, [facility]/pharmacy #2476, replaces diclofenac, 156.15, [...] 08/29/22 9:07:00 EDT, Route to Pharmacy Electronically, [facility]/pharmacy #4365, Partial fill upon patient requestif the prescription is for a schedule II opioid lauro... Start Date: 08/29/22 Status: Ordered Symbicort 160mcg/4.5mcg Inhaler 2, puffs, Inhalation, 2 times a day, in the morning and the evening use with spacer chamber rinse mouth and throat after use, # 1 each, Refills 5, Tot. Refills 5, Maintenance, 10/17/22 10:03:00 EST, Aerosol, Route to Pharmacy Electronically, [id number]... Start Date: 10/17/22 Status: Ordered Vitamin D3 [...] or scraping Cyto stain * Event Display: CELERY WRAPPER Pap Test, Non-BH Authored Date: EKG study * Event Display: EKG Authored Date: Note * Event Display: Non Lab Results Authored Date: * Event Display: [...] Event Display: Cardiovascular Results Scanned Authored Date: Patient Care team information Care Team Personnel Name: Justa HARRIS, Geni Orlando Position: [facility] Associate Professional Member Role: Primary Care Nurse Address: Address: [address] [place] [id number]- Name: Santi James MD Position: [facility] Primary Care Physician Member Role: PCP Address: Address: [address] [place] [address] Adult & [place] [address]- Care Team Related Persons Name: PITER BAILEY Address: home [address] [place] [address] Name: DELMIS ADAMS Address: [place] [address] Name: RUPERT PALMER Address: home [address] [place] [address] Name: DESIRAE CHAUDHARY Address: home [address] [place], [place]
--- OUTSIDE RECORDS SUMMARY | 2024-07-15 15:48 | XMS_ITS | Continuity of Care Document ---
Author Organization [facility] Address [address] [place] [address]- Care Team Providers Care Handbook Writer Name Role Phone Santi James MD Primary Care Physician [facility]13[facility]21 - 07/13/21 [facility] [address] [place], [place] [address] Allergies, Adverse [...] [facility], form received 2Admin Note: done @ [facility],form received 3Result Comment: [07/31/2015] [facility] 4Admin Note: done @ [facility] 5Admin Note: vis sheet given. 6Admin Note: work 7Admin Note: given at [facility] in [place] 8Admin Note: per pt, done at [facility] 9Admin Note: given at work 10Admin Note: given in the fall 11Result Comment: [id number] 12Result Comment: [08/31/2018] [id number] 13Result Comment: [08/24/2015] given w/out incident 14Admin Note: per pt 15Admin Note: [facility] Medications acetaminophen 650 mg oral tablet, extended release 1 tablet = 650 mg, By Mouth, Every 8 hours, PRN Pain , Moderate, for 30 days, # 90 tablet, 7 Refills, Acute 10/24/21 12:47:00 EST, 02/26/21 12:47:00 EDT, ER Tablet, [facility] #[id number], 156, cm, 03/13/20 10:31:00 EDT, Height, 78.8, kg, ... Start Date: 02/26/21 Stop Date: 10/24/21 Status: Ordered albuterol 0.083% inhalation solution 3 mL = 2.5 mg, Inhalation, Every 6 hours, PRN for wheezing, Dx: asthma, # 100 each, 4 Refills, Maintenance, 12/01/19 12:54:00 EST, Solution, [facility]/pharmacy #2476, 156, cm, 12/01/19 12:40:00 EST, Height, 79.6, kg, 03/10/19 14:10:00 EDT, Dry Weight Start Date: 12/01/19 Stop Date: 04/29/20 Status: Ordered albuterol CFC free 90 mcg/inh inhalation aerosol 2, puffs, Inhalation, Every 4 hours, PRN, # 1 each, Refills 3, Tot. Refills 3, Maintenance, 03/13/21 8:25:00 EDT, Aerosol, Route to Pharmacy Electronically, [id number], [facility] #[id number], 156, cm, 03/13/21 8:16:00 E... Start Date: [...] 3 Refills, Maintenance, 03/13/21 8:26:00 EDT, Tablet, [facility] #69712, 156, cm, 03/13/21 8:16:00 EDT, Height, 78.8, kg, 12/20/19 10:35:00 EST, Dry Weight Start Date: 03/13/21 Stop Date: 03/08/22 Status: Ordered Cipro 250 mg oral tablet 1 tablet = 250 mg, By Mouth, Every 12 hours, for 10 days, # 20 tablet, 0 Refills, Acute 07/23/21 16:09:00 EDT, 07/13/21 16:09:00 EDT, Tablet, [facility] #[id number], 156, cm, 03/13/21 8:35:00 EDT, Height, 78.8, kg, 12/20/19 10:35:00 EST, Dry Weight Start Date: 07/13/21 Stop Date: 07/23/21 Status: Ordered CPAP at 8mmHg CPAP at [...] mL, 0 Refills, Maintenance, 07/25/20 16:52:00 EDT, [place], [facility]/pharmacy #9906, 2 sprays Nares, Both 2 times a day, 156, cm, 03/13/20 10:31:00 EDT, Height, 78.8, kg, 12/20/19 10:35:00 EST, Dry Weight Start Date: 07/25/20 Status: Ordered levothyroxine 0.05 mg oral tablet 1 tablet = 50 mcg, By Mouth, Daily, # 90 tablet, 3 Refills, Maintenance, 03/13/21 8:24:00 EDT, Tablet, [facility] #[id number], 156, cm, 03/13/21 8:16:00 EDT, Height, 78.8, kg, 12/20/19 10:35:00 EST, Dry Weight Start Date: 03/13/21 Stop Date: 03/08/22 Status: Ordered montelukast 10 mg oral tablet See Instructions, TAKE 1 TABLET BY MOUTH DAILY, # 90 tablet, Refills 1, Instructions Replace Required Details, Route to Pharmacy Electronically, [facility] #[id number], 156, cm, 03/13/21 8:35:00EDT, Height, 78.8, kg, [...] each, 0 Refills, Maintenance, 09/14/20 8:47:00 EST, [facility]/pharmacy #2476, 1 puffs Inhalation 2 times [...]
--- OUTSIDE RECORDS SUMMARY | 2024-07-15 15:48 | XMS_ITS | Continuity of Care Document ---
Author Organization [facility] Address [address] [place] [address]- Care Team Providers Care Roof Mechanic Name Role Phone Santi James MD Primary Care Physician [facility]): 02/27/23 - 03/29/23 [facility] [address] [place], [place] [address] Allergies, Adverse Reactions, Alerts Substance Reaction [...] at [facility] in [place] 7Admin Note: per pt, done at [facility] 8Admin Note: done @ [facility], form received 9Admin Note: given at work 10Admin Note: given in the fall 11Result Comment: [id number] 12Result Comment: [08/31/2018] [id number] 13Result Comment: [08/24/2015] given w/out incident 14Admin Note: per pt 15Admin Note: [facility] Medications acetaminophen 650 mg oral tablet, extended release 1 tablet, By Mouth, Every 8 hours, PRN NEEDED FOR PAIN, # 90 tablet, 3 Refills, Maintenance, 01/17/23 12:44:00 EDT, [facility], 156.15, cm, 11/29/22 14:40:00 EST, Height, 79.5, [...] each, 10 Refills, Maintenance, 11/25/22 15:18:00 EST, [place], [facility]/pharmacy #2476, replaces 0.15% dose, 1 [...] 1 Refills, Maintenance, 03/01/23 14:21:00 EDT, [facility]ORE 56230, 156.15, cm, 11/29/22 14:40:00 EST, Height, 79.5, [...] Maintenance, 03/28/23 13:04:00 EDT, Aerosol, [facility]/pharmacy #3256, replaced Proventil that is not available, 155, [...] Name: Justa HARRIS, Geni [place] Position: [facility] Associate Professional Member Role: Primary Care Nurse Address: Address: [address] [place] [address]- Name: Talia Matute RN Position: [facility] ED RN W/OE and Tasks Member Role: Primary Care Nurse Name: Santi James MD Position: [facility] Physician - Primary Care Member Role: PCP Address: Address: [address] [place] [address] Adult & [place] [address]- Care Team Related Persons Name: PITER BAILEY Address: home [address] [place] [address] Name: DELMIS ADAMS Address: home [address] [place], [place] Name: RUPERT PALMER Address: home [address] [place], [place] Name: DESIRAE CHAUDHARY Address: home [address] [place], [place]
--- OUTSIDE RECORDS SUMMARY | 2024-07-15 15:48 | XMS_ITS | Continuity of Care Document ---
Author Organization [facility] Address [address] [place] [address]- Care Team Providers Care Remote Broadcast Engineer Name Role Phone Jacob DORAN, Santi Primary Care Physician [facility] 07/18/23 - 07/25/23 [facility] [address] [place], [place] [address] Attending Physician: George Luong MD Allergies, Adverse [...] Note: given at [facility] in [place] 7Admin Note: per pt, done at [facility] 8Admin Note: done @ [facility], form received 9Admin Note: given at work 10Admin Note: given in the fall 11Result Comment: [id number] 12Result Comment: [08/31/2018] [id number] 13Result Comment: [08/24/2015] given w/out incident 14Admin Note: per pt 15Admin Note: [facility] Medications acetaminophen 650 mg oral tablet, extended release 1 tablet, By Mouth, Every 8 hours, PRN NEEDED FOR PAIN, # 90 tablet, 3 Refills, Maintenance, 01/17/23 12:44:00 EDT, [facility], 156.15, cm, 11/29/22 14:40:00 EST, Height, 79.5, [...] Refills, Maintenance, 06/10/23 8:18:00 EDT, [facility], 90, USE 1 SPRAY IN BOTH NOSTRILS [...] 155... Start Date: 03/14/23 Status: Ordered ergocalciferol 59674 iu oral capsule 50,000 International_Units, 1, capsule, By Mouth, Every week, # 12 capsule, Refills 0, Tot. Refills0, Maintenance, 06/12/23 7:24:00 EDT, Route to Pharmacy Electronically, [facility]/pharmacy #2476, Partialfill upon patient request if [...] tablet, 1 Refills, Maintenance, 03/01/23 14:21:00 EDT, [facility] STORE 52469, 156.15, cm, 11/29/22 14:40:00 EST, Height, 79.5, [...] 03/28/23 13:04:00 EDT, Aerosol, [facility]/pharmacy #9944, replaced Proventil that is not available, 155, [...] Stable Active Obese class I Confirmed Active GARCAI (obstructive sleep apnea) Confirmed 03/16/10 Active Osteoporosis Confirmed 01/10/23 Active Recurrent sinusitis Confirmed Active Repair of hernia of abdominal wall Confirmed Active 1Problem added by Discern Expert Vital Signs Most recent to oldest [Reference Range]: 1 Height 155 cm (07/18/23 9:24 AM) Weight 82.1 kg (07/18/23 9:24 AM) Pulse Rate [55-90 bpm] 56 bpm (07/18/23 9:24 AM) Body Mass Index [18.5-24.99 kg/m2] 34.17 kg/m2 *>HHI* (07/18/23 9:24 AM) Blood Pressure [90-138/55-84 mm Hg] 125/ 60mm Hg (07/18/23 9:24 AM) Blood pressure sites Arm, left (07/18/23 9:24 AM) Social History Social History Type Response Smoking Status Never smoker entered on: 10/12/14 Sex Patient Care team information Care Team Personnel Name: Justa HARRIS, Geni [place] Position: [facility] Associate Professional Member Role: Primary Care Nurse Address: Address: [address] [facility] [place] [address]- [place] Name: Talia Matute RN Position: [facility] RN Member Role: Primary Care Nurse Name: Santi James MD Position: [facility] Physician - Primary Care Member Role: PCP Address: Address: [address] [place] [address] Adult & [place] [address]- Care Team Related Persons Name: PITER BAILEY Address: home [address] [place] [address] Name: DELMIS ADAMS Address: home [address] [place], [place] Name: RUPERT PALMER Address: home [address] [place], [place] Name: DESIRAE CHAUDHARY Address: home [address] [place], [place]
--- OUTSIDE RECORDS SUMMARY | 2024-07-15 15:48 | XMS_ITS | Continuity of Care Document ---
Author Organization [facility] Address [address] [place] [address]- Care Team Providers Care Manufacturer'S Service Representative Name Role Phone Jacob DORAN, Santi Primary Care Physician [facility]): 04/09/24 - 05/09/24 [facility] [address] [place], [place] [address] Allergies, Adverse Reactions, Alerts [...] influenza virus vaccine, inactivated 1 06/24/16 Gi cristle influenza virus vaccine, inactivated 2 07/31/15 Re [...] (Td) 11/03/99 Given 1Admin Note: done @ [facility],form received 2Result Comment: [07/31/2015] [facility] 3Admin Note: done @ [facility] 4Admin Note: vis sheet given. 5Admin Note: work 6Admin Note: given at [facility] in [place] 7Admin Note: per pt, done at [facility] 8Admin Note: done @ [facility], form received 9Admin Note: given at work 10Admin Note: given in the fall 11Result Comment: [id number] 12Result Comment: [08/31/2018] [id number] 13Result Comment: [08/24/2015] given w/out incident 14Admin [...] tablet, 3 Refills, Maintenance, 01/17/23 12:44:00 EDT, [facility] 443[facility], 156.15, cm, 11/29/22 14:40:00 EST, Height, 79.5, [...] 90 Unknown,1 Refills, Maintenance, 06/10/23 8:18:00 EDT, [facility] 09998, 90, USE 1 SPRAY IN BOTH NOSTRILS [...] 0 Refills, Maintenance, 03/10/24 12:10:00 EDT, Tablet, [facility]/pharmacy #8218, Partial fill upon patient request if the prescription is for a schedule... Start Date: 03/10/24 Status: Ordered EpiPen 2-Tramaine 0.3 mg injectable kit = 0.3 mg, Intramuscular, Once, PRN Anaphylactic Reaction, may repeat if necessary, # 1 each, 11 Refills, Soft Stop, 03/14/23 15:31:00 EDT, [facility]/pharmacy #2476, Partial fill upon patient request if theprescription is for a schedule II opioid drug., 155... Start Date: 03/14/23 Status: Ordered fexofenadine 180 mg oral tablet 1 tablet = 180 mg, By Mouth, Daily, PRN for allergy symptoms, # 90 tablet, 4 Refills, Maintenance, 09/02/23 11:04:00 EDT, Tablet, [facility]/pharmacy #2476, Partial fill upon patient request if the prescription is for a schedule II opioid drug., 155, cm, ... Start Date: 09/02/23 Stop Date: 11/25/24 Status: Ordered ibuprofen 800 mg oral tablet 1, tablet, By Mouth, 3 times a day, X30 DAYS, STOP ASPIRIN WHILE TAKING THIS., # 90 tablet, Refills1, Maintenance, 12/04/23 7:25:00 EST, Route to Pharmacy Electronically, [facility] 33531, 155, cm, 11/18/23 16:29:00 EST, Height, 83.7, kg, 11/06/23 9:0... Start Date: 12/04/23 Status: Ordered ibuprofen 800 mg oral tablet 1, tablet, By Mouth, 3 times a day, PRN, X30 DAYS, STOP ASPIRIN WHILE TAKING THIS. Take with food and/or milk, # 90 tablet, Refills 2, Tot. Refills 2, Maintenance, Pain , Moderate, 04/05/24 15:20:00 EDT, Route to Pharmacy Electronically, [facility]/pharmacy... Start Date: 04/05/24 Stop Date: 07/04/24 Status: Ordered levothyroxine 0.05 mg oral tablet 1 tablet, By Mouth, Daily, # 90 tablet, 3 Refills, Maintenance, 08/12/23 15:31:00 EDT, [facility]/pharmacy#2476, 155, cm, 08/12/23 15:09:00 EDT, Height, 83.9, kg, 03/13/23 4:46:00 EDT, Dry Weight Start Date: 08/12/23 Stop Date: 08/06/24 Status: Ordered montelukast 10 mg oral tablet 1, tablet, By Mouth, Daily, # 90 tablet, Refills 3, Maintenance, 11/23/23 8:40:00 EST, Route to Pharmacy Electronically, [facility] 68994, 155, cm, 11/18/23 16:29:00 EST, Height, 83.7, [...] 4 Refills, Maintenance, 03/28/23 13:04:00 EDT, Aerosol, [facility]/pharmacy #2476, replaced Proventil that is not available, 155, cm, 03/13/23 11:02:00 EDT, Height, 83.9, kg, 03/13/23 4:46:00 EDT... Start Date: 03/28/23 Stop Date: 08/25/23 Status: Ordered Vitamin D3 1000 intl units oral tablet 1 tablet = 25 mcg, By Mouth, Daily, # 90 tablet, 2 Refills, Maintenance, 01/27/24 14:50:00 EDT, Tablet, [facility]/pharmacy #2476, may use OTC formulation, 155, [...] Justa HARRIS, Geni Orlando Position: [facility] Associate Professional Member Role: Primary Care Nurse Name: Talia Matute RN Position: [facility] RN Member Role: Primary Care Nurse Name: Darshan Benz RN Position: [facility] Outreach Member Role: Primary Care Nurse Name: Santi James MD Position: [facility] Physician - Primary Care Member Role: PCP Address: Address: [address] [place] [address] Adult & [place] [address]- Care Team Related Persons Name: PITER BAILEY Address: home [address] [place] [address] Name: DELMIS ADAMS Address: [place] [address] Name: RUPERT PALMER Address: [address] [place] [address] Name: DESIRAE CHAUDHARY Address: [address] [place] [address]
--- OUTSIDE RECORDS SUMMARY | 2024-07-15 15:48 | XMS_ITS | Continuity of Care Document ---
Author Organization [facility] Address [address] [place] [address]- Care Team Providers Care Director Database Name Role Phone Santi James MD Primary Care Physician [facility]): 02/10/24 - 03/11/24 [facility] [address] [place], [place] [address] Allergies, Adverse [...] influenza virus vaccine, inactivated 3 07/01/14 Gi rcistel influenza virus vaccine, inactivated 4 07/02/12 Gi [...] given at [facility] [place] 7Admin Note: per pt, done at [facility] 8Admin Note: done @ [facility], form received 9Admin Note: given at work 10Admin Note: given in the fall 11Result Comment: [id number] 12Result Comment: [08/31/2018] [id number] 13Result Comment: [08/24/2015] given w/out incident 14Admin [...] tablet, 3 Refills, Maintenance, 01/17/23 12:44:00 EDT, [facility], 156.15, cm, 11/29/22 14:40:00 EST, Height, 79.5, [...] 90 Unknown,1 Refills, Maintenance, 06/10/23 8:18:00 EDT, [facility], 90, USE 1 SPRAY IN BOTH NOSTRILS [...] Refills, Maintenance, 03/10/24 12:10:00 EDT, Tablet, [facility], Partial fill upon patient request if the prescription is for a schedule... Start Date: 03/10/24 Status: Ordered EpiPen 2-Tramaine 0.3 mg injectable kit = 0.3 mg, Intramuscular, Once, PRN Anaphylactic Reaction, may repeat if necessary, # 1 each, 11 Refills, Soft Stop, 03/14/23 15:31:00 EDT, [facility]/pharmacy #2476, Partial fill upon patient request if theprescription is for a schedule II opioid drug., 155... Start Date: 03/14/23 Status: Ordered fexofenadine 180 mg oral tablet 1 tablet = 180 mg, By Mouth, Daily, PRN for allergy symptoms, # 90 tablet, 4 Refills, Maintenance, 09/02/23 11:04:00 EDT, Tablet, [facility]/pharmacy #2476, Partial fill upon patient request if the prescription is for a schedule II opioid drug., 155, cm, ... Start Date: 09/02/23 Stop Date: 11/25/24 Status: Ordered ibuprofen 800 mg oral tablet 1, tablet, By Mouth, 3 times a day, X30 DAYS, STOP ASPIRIN WHILE TAKING THIS., # 90 tablet, Refills1, Maintenance, 12/04/23 7:25:00 EST, Route to Pharmacy Electronically, [facility], 155, cm, 11/18/23 16:29:00 EST, Height, 83.7, kg, 11/06/23 9:0... Start Date: 12/04/23 Status: Ordered levothyroxine 0.05 mg oral tablet 1 tablet, By Mouth, Daily, # 90 tablet, 3 Refills, Maintenance, 08/12/23 15:31:00 EDT, [facility]/pharmacy#2476, 155, cm, 08/12/23 15:09:00 EDT, Height, 83.9, kg, 03/13/23 4:46:00 EDT, Dry Weight Start Date: 08/12/23 Stop Date: 08/06/24 Status: Ordered montelukast 10 mg oral tablet 1, tablet, By Mouth, Daily, # 90 tablet, Refills 3, Maintenance, 11/23/23 8:40:00 EST, Route to Pharmacy Electronically, [facility], 155, cm, 11/18/23 16:29:00 EST, Height, 83.7, [...] Personnel Name: Justa HARRIS, Geni [place] Position: [facility] Associate Professional Member Role: Primary Care Nurse Name: Juju QIU, Talia Position: [facility] RN Member Role: Primary Care Nurse Name: Darshan Benz RN Position: [facility] Outreach Member Role: Primary Care Nurse Name: Santi James MD Position: [facility] Physician - Primary Care Member Role: PCP Address: Address: [address] [place] [address] Adult & [place] [address]- Care Team Related Persons Name: PITER BAILEY Address: home [address] [place] [address] Name: DELMIS ADAMS Address: home [address] [place], [place] Name: RUPERT PALMER Address: home [address] [place], [place] Name: DESIRAE CHAUDHARY Address: home [address] [place], [place]
--- OUTSIDE RECORDS SUMMARY | 2024-07-15 15:48 | XMS_ITS | Continuity of Care Document ---
Author Organization [facility] Address [address] [place] [address]- Care Team Providers Care Stage Producer Name Role Phone Santi James MD Primary Care Physician [facility] 08[facility]23 - 09/01/23 [facility] [address] [place], [place] [address] Allergies, Adverse Reactions, Alerts Substance Reaction Severity Status morphine Active benzonatate Speech impediment Active Percocet Active doxycycline Hives Active nitrofurantoin Pruritus Rash Active predniSONE Anaphylaxis Active Lopid Muscle cramps [...] (Td) 11/03/99 Given 1Admin Note: done @ [facility],form received 2Result Comment: [07/31/2015] [facility] 3Admin Note: done @ [facility] 4Admin Note: vis sheet given. 5Admin Note: work 6Admin Note: given at [facility] in [place] 7Admin Note: per pt, done at [facility] 8Admin Note: done @ [facility], form received 9Admin Note: given at work 10Admin Note: given in the fall 11Result Comment: [id number] 12Result Comment: [08/31/2018] [id number] 13Result Comment: [08/24/2015] given w/out incident 14Admin [...] Refills, Maintenance, 01/17/23 12:44:00 EDT, [facility], 156.15, cm, 11/29/22 14:40:00 EST, Height, 79.5, [...] Refills, Maintenance, 06/10/23 8:18:00 EDT, [facility], 90, USE 1 SPRAY IN BOTH NOSTRILS 2 TIMES A DAY NEEDED FOR ALLERGIES, 155, cm, ... Start Date: 06/10/23 Status: Ordered CeleBREX 100 mg oral capsule 1 capsule = 100 mg, By Mouth, 2 times a day, PRN for pain, # 60 capsule, 4 Refills, Maintenance, 08/12/23 15:29:00 EDT, Capsule, [facility]/pharmacy #4496, replaces ibuprofen, 155, cm, 08/12/23 15:09:00 EDT, [...] Soft Stop, 03/14/23 15:31:00 EDT, [facility]/pharmacy #2476, Partial fill upon patient request if theprescription is for a schedule II opioid drug., 155... Start Date: 03/14/23 Status: Ordered ergocalciferol 30675 iu oral capsule 50,000 International_Units, 1, capsule, By Mouth, Every week, # 12 capsule, Refills 0, Tot. Refills0, Maintenance, 06/12/23 7:24:00 EDT, Route to Pharmacy Electronically, [facility]/pharmacy #2476, Partialfill upon patient request if [...] Refills, Maintenance, 08/12/23 15:31:00 EDT, [facility]/pharmacy#2476, 155, cm, 08/12/23 15:09:00 EDT, Height, [...] [place] Position: [facility] Associate Professional Member Role: Primary Care Nurse Address: Address: [address] [place] [address] [address]- Name: Juju QIU, Talia Position: [facility] RN Member Role: Primary Care Nurse Name: Santi James MD Position: [facility] Physician - Primary Care Member Role: PCP Address: Address: [address] [place] [address] Adult & [place] [address]- Care Team Related Persons Name: PITER BAILEY Address: home [address] [place] [address] Name: DELMIS ADAMS Address: [place] [address] Name: RUPERT PALMER Address: [address] [place] [address] Name: DESIRAE CHAUDHARY Address: [address] [place] [address]
--- OUTSIDE RECORDS SUMMARY | 2024-07-15 15:48 | XMS_ITS | Continuity of Care Document ---
Author Organization [facility] Address [address] [place] [address]- Care Team Providers Care Prism Inspector Name Role Phone Jacob DORAN, Santi Primary Care Physician [facility] Date[facility]s): 12/12/23 - 01/11/24 [facility] [address] [place], [place] [address] Allergies, Adverse Reactions, Alerts [...] Given 1Admin Note: done @ [facility],form received 2Result Comment: [07/31/2015] [facility] 3Admin Note: [facility] 4Admin Note: vis sheet given. 5Admin Note: work 6Admin Note: given at [facility] in [place] 7Admin Note: per pt, done at [facility] 8Admin Note: done @ [facility], form received 9Admin Note: given at work 10Admin Note: given in the fall 11Result Comment: [id number] 12Result Comment: [08/31/2018] [id number] 13Result Comment: [08/24/2015] given w/out incident 14Admin [...] tablet, 3 Refills, Maintenance, 01/17/23 12:44:00 EDT, [facility] 7[facility]42, 156.15, cm, 11/29/22 14:40:00 EST, Height, 79.5, [...] 90 Unknown,1 Refills, Maintenance, 06/10/23 8:18:00 EDT, [facility] 82375, 90, USE 1 SPRAY IN BOTH NOSTRILS [...] Refills, Soft Stop, 11/06/23 9:46:00 EST, Tablet, [facility]/pharmacy #2310, Partial fill upon patient request if the prescription is for a schedule II opioid drug., 155, cm, 11/06/23 9:08:00 EST, Height, 83.7... Start Date: 11/06/23 Status: Ordered EpiPen 2-Tramaine 0.3 mg injectable kit = 0.3 mg, Intramuscular, Once, PRN Anaphylactic Reaction, may repeat if necessary, # 1 each, 11 Refills, Soft Stop, 03/14/23 15:31:00 EDT, [facility]/pharmacy #2476, Partial fill upon patient request if theprescription is for a schedule II opioid drug., 155... Start Date: 03/14/23 Status: Ordered fexofenadine 180 mg oral tablet 1 tablet = 180 mg, By Mouth, Daily, PRN for allergy symptoms, # 90 tablet, 4 Refills, Maintenance, 09/02/23 11:04:00 EDT, Tablet, [facility]/pharmacy #2476, Partial fill upon patient request if the prescription is for a schedule II opioid drug., 155, cm, ... Start Date: 09/02/23 Stop Date: 11/25/24 Status: Ordered fluconazole 150 mg oral tablet 1 tablet = 150 mg, By Mouth, Once, repeat dose if still having symptoms in 72 hours, # 2 tablet, 0 Refills, Soft Stop, 12/22/23 13:26:00 EST, Tablet, [facility]/pharmacy #2476, Partial fill upon patient request if the prescription is for a schedule II opioid... Start Date: 12/22/23 Status: Ordered ibuprofen 800 mg oral tablet 1, tablet, By Mouth, 3 times a day, X30 DAYS, STOP ASPIRIN WHILE TAKING THIS., # 90 tablet, Refills1, Maintenance, 12/04/23 7:25:00 EST, Route to Pharmacy Electronically, [facility] ST[facility] 21404, 155, cm, 11/18/23 16:29:00 EST, Height, 83.7, kg, 11/06/23 9:0... Start Date: 12/04/23 Status: Ordered levothyroxine 0.05 mg oral tablet 1 tablet, By Mouth, Daily, # 90 tablet, 3 Refills, Maintenance, 08/12/23 15:31:00 EDT, [facility]/pharmacy#2476, 155, cm, 08/12/23 15:09:00 EDT, Height, 83.9, kg, 03/13/23 4:46:00 EDT, Dry Weight Start Date: 08/12/23 Stop Date: 08/06/24 Status: Ordered montelukast 10 mg oral tablet 1, tablet, By Mouth, Daily, # 90 tablet, Refills 3, Maintenance, 11/23/23 8:40:00 EST, Route to Pharmacy Electronically, [facility] STORE 09392, 155, cm, 11/18/23 16:29:00 EST, Height, 83.7, [...] Refills, Maintenance, 03/28/23 13:04:00 EDT, Aerosol, [facility]/pharmacy #2476, replaced Proventil that is not available, 155, cm, 03/13/23 11:02:00 EDT, Height, 83.9, kg, 03/13/23 4:46:00 EDT... Start Date: 03/28/23 Stop Date: 08/25/23 Status: Ordered Zetia 10 mg oral tablet 1 tablet = 10 mg, By Mouth, Daily, # 30 tablet, 1 Refills, Maintenance, 10/28/23 10:28:00 EST, Tablet, [facility]/pharmacy #2476, Partial fill upon patient [...] Member Role: Primary Care Nurse Address: Address: [address] [place] [address]- Name: Talia Matute RN Position: [facility] RN Member Role: Primary Care Nurse Name: Santi James MD Position: [facility] Physician - Primary Care Member Role: PCP Address: Address: [address] [place] [address] Adult [place] [address]- Care Team Related Persons Name: PITER BAILEY Address: home [address] [place] [address] Name: DELMIS ADAMS Address: home [place], [place] Name: RUPERT PALMER Address: home [address] [place], [place] Name: DESIRAE CHAUDHARY Address: home [address] [place], [place]
--- OUTSIDE RECORDS SUMMARY | 2024-07-15 15:48 | XMS_ITS | Continuity of Care Document ---
Author Organization [facility] Address [address] [place] [address]- Care Team Providers Care Medical Record Specialist Name Role Phone Santi James MD Primary Care Physician Encounter [facility] Date(s): 10/02/20 - 10/09/20 [facility] [address] [place], [place] [address] Encounter Diagnosis Chronic sinusitis(Discharge Diagnosis) - 10/02/20 Attending Physician: Santi James MD Allergies, Adverse [...] in the fall 3Admin Note: done @ [facility], form received 4Result Comment: [id number] 5Result Comment: [08/31/2018] [id number] 6Result Comment: [08/24/2015] given w/out incident 7Admin Note: done @ [facility],form received 8Result Comment: [07/31/2015] [facility] 9Admin Note: done @ [facility] 10Admin Note: vis sheet given. 11Admin Note: work 12Admin Note: given at [facility] 13Admin Note: per pt, done at [facility] [...] 10/28/17 14:12:34, Aerosol, Route to Pharmacy Electronically, [id number], [facility]/pharmacy #1972, Compound [...] 08/16/19 Stop Date: 09/15/19 Status: Ordered Cipro 500 mg oral tablet 1 tablet = 500 mg, By Mouth, Every 12 hours, for 10 days, # 20 tablet, 0 Refills, Acute 10/12/20 11:27:00 EST, 10/02/20 11:27:00 EST, Tablet, [facility]/pharmacy #2476, Partial fill upon patient request, 156, cm, 03/13/20 10:31:00 EDT, Height, 78.8, kg, 12/04... Start Date: 10/02/20 Stop Date: 10/12/20 Status: Ordered CPAP at 8mmHg CPAP at 8mmHg, See Instructions, # 1 each, Refills 0, Tot. Refills 0, Maintenance, DX: sleep apnea length of need 99 months, 03/20/18 15:26:44, Compound Start Date: 01/20/18 Status: Ordered FLUoxetine 20 mg oral capsule 1, capsule, By Mouth, Daily, # 90 capsule, Refills 2, Tot. Refills 0, Maintenance, 10/05/20 15:45:00 EST, Route to Pharmacy Electronically, [facility] STORE 77763, 156, cm, 03/13/20 10:31:00 EDT, Height, 78.8, kg, 12/20/19 10:35:00 EST, Dry Weight Start Date: 10/05/20 Status: Ordered ipratropium nasal 21 mcg/inh spray 2 sprays, Nares, Both, 2 times a day, # 30 mL, 0 Refills, Maintenance, 07/25/20 16:52:00 EDT, [place], [facility]/pharmacy #2476, 2 sprays Nares, Both 2 times a day, 156, cm, 03/13/20 10:31:00 EDT, Height, 78.8, kg, 12/20/19 10:35:00 EST, Dry Weight Start Date: 07/25/20 Status: Ordered levothyroxine 0.05 mg oral tablet 1 tablet = 50 mcg, By Mouth, Daily, # 90 tablet, 3 Refills, Maintenance, 03/13/20 11:08:00 EDT, Tablet, [facility]/pharmacy #2476, 156, cm, 03/13/20 10:31:00 EDT, Height, 78.8, kg, 12/20/19 10:35:00 EST, Dry Weight Start Date: 03/13/20 Stop Date: 03/08/21 Status: Ordered montelukast 10 mg oral tablet 1, tablet, By Mouth, Daily, # 90 tablet, Refills 2, Tot. Refills 0, Maintenance, 10/05/20 15:45:00 EST, Route to Pharmacy Electronically, [facility] STORE 12710, 156, cm, 03/13/20 10:31:00 EDT, Height, 78.8, [...] Refills, Soft Stop, 09/14/20 8:46:00 EST, Tablet, [facility], 156,cm, 03/13/20 10:31:00 EDT, Height, 78.8, [...] Dates Health Status Cl inical Service Informant Chronic sinusitis Discharge Diagnosis 10/02/20 Social History Social History Type Response Smoking Status Never smoker entered on: 10/12/14 Sex
--- OUTSIDE RECORDS SUMMARY | 2024-07-15 15:48 | XMS_ITS | Continuity of Care Document ---
Author Organization [facility] Address [address] [place] [address]- Care Team Providers Care Cognos Report Developer Name Role Phone Santi James MD Primary Care Physician [facility] Date[facility]s): 12/23/19 - 12/30/19 [facility] [address] [place] [address]- [facility] Attending Physician: Santi James MD Allergies, Adverse [...] in the fall 3Admin Note: done @ [facility], form received 4Result Comment: [id number] 5Result Comment: [08/31/2018] [id number] 6Result Comment: [08/24/2015] given w/out incident 7Admin Note: done @ [facility],form received 8Result Comment: [07/31/2015] [facility] 9Admin Note: done @ [facility] 10Admin Note: vis sheet given. 11Admin Note: work 12Admin Note: given at [facility] 13Admin Note: per pt, done at [facility] 14Admin Note: per pt 15Admin Note: [facility] Medications acetaminophen 650 mg oral tablet, extended release 1 tablet = 650 mg, By Mouth, Every 8 hours, PRN as needed for pain, for 30 days, # 100 tablet, 1 Refills, Acute 02/01/20 11:16:00 EDT, 12/03/19 11:16:00 EST, ER Tablet, [facility]/pharmacy #2476, 156, cm, 12/03/19 8:37:00 EST, [...] 10/28/17 14:12:34, Aerosol, Route to Pharmacy Electronically, [id number], [facility]/pharmacy #1972, Compound Start Date: [...] 08/16/19 14:35:23 EDT, Route to Pharmacy Electronically, [id number], [facility]/pharmacy #2476, increase in dose Start Date: [...] 09/13/19 13:49:27 EST, Route to Pharmacy Electronically, [id number], [facility]/pharmacy #2476 Start Date: 09/13/19 Stop Date: [...] oldest [Reference Range]: 1 Height 156 cm (12/23/19 1:03 PM) Weight 79.5 kg (12/23/19 1:03 PM) Oxygen Saturation [94-100 %] 98 % (12/23/19 1:03 PM) Pulse Rate [55-90 bpm] 74 bpm (12/23/19 1:03 PM) Body Mass Index [18.5-24.99] 32.67 *>HHI* (12/23/19 1:03 PM) Blood Pressure [90-138/55-84 mm Hg] 124/ 60mm Hg (12/23/19 1:03 PM) Temperature [96.8-100.4 DegF] 98.1 DegF (12/23/19 1:03 PM) Mode of Delivery (Oxygen) Room air (12/23/19 1:03 PM) Blood pressure sites Arm, left (12/23/19 1:03 PM) Social History Social History Type Response Smoking Status Never smoker entered on: 10/12/14 Sex
--- OUTSIDE RECORDS SUMMARY | 2024-07-15 15:48 | XMS_ITS | Continuity of Care Document ---
Author Organization [facility] Address [address] [place] [address]- Care Team Providers Care Network Operations Lead Name Role Phone Santi James MD Primary Care Physician [facility] Date(s): 08/25/23 - 09/24/23 [facility] [address] [place], [place] [address] Allergies, Adverse Reactions, Alerts Substance Reaction Severity Status nitrofurantoin Pruritus Rash Active morphine Active predniSONE Anaphylaxis Active benzonatate Speech impediment Active Lopid Muscle cramps Myalgia and myositis unspecified Active Percocet Active Lipitor Myalgia unspecified Muscle cramps Active doxycycline Hives Active Biaxin Upset stomach Active Topamax Skin [...] Note: given in the fall 11Result Comment: [id number] 12Result Comment: [08/31/2018] [id number] 13Result Comment: [08/24/2015] given w/out incident 14Admin [...] tablet, 3 Refills, Maintenance, 01/17/23 12:44:00 EDT, [facility] ST[facility] 82103, 156.15, cm, 11/29/22 14:40:00 EST, Height, 79.5, [...] 90 Unknown,1 Refills, Maintenance, 06/10/23 8:18:00 EDT, [facility] STORE 22245, 90, USE 1 SPRAY IN BOTH NOSTRILS [...] Stop, 03/14/23 15:31:00 EDT, [facility]/pharmacy #9930, Partial fill upon patient request if theprescription is for a schedule II opioid drug., 155... Start Date: 03/14/23 Status: Ordered ergocalciferol 78364 iu oral capsule 50,000 International_Units, 1, capsule, By Mouth, Every week, # 12 capsule, Refills 0, Tot. Refills0, Maintenance, 06/12/23 7:24:00 EDT, [facility]ically, [facility], Partialfill upon patient request if the prescription is fo... Start Date: 06/12/23 Stop Date: 09/04/23 Status: Ordered fexofenadine 180 mg oral tablet 1 tablet = 180 mg, By Mouth, Daily, PRN for allergy symptoms, # 90 tablet, 4 Refills, Maintenance, 09/02/23 11:04:00 EDT, Tablet, [facility], Partial fill upon patient request if the prescription is for a schedule II opioid drug., 155, cm, .. Start Date: 09/02/23 Stop Date: 11/25/24 Status: Ordered levothyroxine 0.05 mg oral tablet 1 tablet, By Mouth, Daily, # 90 tablet, 3 Refills, Maintenance, 08/12/23 15:31:00 EDT, [facility]/pharmacy#2476, 155, cm, 08/12/23 15:09:00 EDT, Height, 83.9, [...] Refills, Maintenance, 03/28/23 13:04:00 EDT, Aeros[facility], [facility], replaced Proventil that is not available, 155, [...] [place] Position: [facility] Associate Professional Member Role: Primary Care Nurse Address: Address: [address] [facility] [place] [address]- [place] Name: Talia Matute RN Position: [facility] RN Member Role: Primary Care Nurse Name: Santi James MD Position: [facility] Physician - Primary Care Member Role: PCP Address: Address: [address] [place] [address]- Care Team Related Persons Name: PITER BAILEY Address: home [address] [place] [address] Name: DELMIS ADAMS Address: home [place], [place] Name: RUPERT PALMER Address: home [address] [place], [place] Name: DESIRAE CHAUDHARY Address: home [address] [place], [place]
--- OUTSIDE RECORDS SUMMARY | 2024-07-15 15:48 | XMS_ITS | Continuity of Care Document ---
Author Organization [facility] Address [address] [place] [address]- Care Team Providers Care Doorperson Name Role Phone Jacob DORAN, Santi Primary Care Physician [facility] Date[facility]s): 11/07/23 - 12/07/23 [facility] [address] [place], [place] [address] [...] 11/03/99 Given 1Admin Note: done @ [facility],form received 2Result Comment: [07/31/2015] [facility] 3Admin Note: [facility] 4Admin Note: vis sheet given. 5Admin Note: work 6Admin Note: given at [facility] in [place] 7Admin Note: per pt, done at [facility] 8Admin Note: done @ [facility], form received 9Admin Note: given at work 10Admin Note: given in the fall 11Result Comment: [id number] 12Result Comment: [08/31/2018] [id number] 13Result Comment: [08/24/2015] given w/out incident 14Admin [...] tablet, 3 Refills, Maintenance, 01/17/23 12:44:00 EDT, [facility] 86790, 156.15, cm, 11/29/22 14:40:00 EST, Height, 79.5, [...] 90 Unknown,1 Refills, Maintenance, 06/10/23 8:18:00 EDT, [facility] 37654, 90, USE 1 SPRAY IN BOTH NOSTRILS [...] Refills, Soft Stop, 11/06/23 9:46:00 EST, Tablet, [facility]/pharmacy #2336, Partial fill upon patient request if the [...] 4 Refills, Maintenance, 09/02/23 11:04:00 EDT, Tablet, [facility]/pharmacy #2476, Partial fill upon patient request if the prescription is for a schedule II opioid drug., 155, cm, ... Start Date: 09/02/23 Stop Date: 11/25/24 Status: Ordered fluconazole 150 mg oral tablet 1 tablet = 150 mg, By Mouth, Once, repeat dose if still having symptoms in 72 hours, # 2 tablet, 0 Refills, Soft Stop, 11/28/23 12:38:00 EST, Tablet, [facility]/pharmacy #2476, Partial fill upon patient request if the prescription is for a schedule II opioid... Start Date: 11/28/23 Status: Ordered ibuprofen 800 mg oral tablet 1, tablet, By Mouth, 3 times a day, X30 DAYS, STOP ASPIRIN WHILE TAKING THIS., # 90 tablet, Refills1, Maintenance, 12/04/23 7:25:00 EST, Route to Pharmacy Electronically, [facility] STORE 28985, 155, cm, 11/18/23 16:29:00 EST, Height, 83.7, kg, 11/06/23 9:0... Start Date: 12/04/23 Status: Ordered levothyroxine 0.05 mg oral tablet 1 tablet, By Mouth, Daily, # 90 tablet, 3 Refills, Maintenance, 08/12/23 15:31:00 EDT, [facility]/pharmacy#2476, 155, cm, 08/12/23 15:09:00 EDT, Height, 83.9, kg, 03/13/23 4:46:00 EDT, Dry Weight Start Date: 08/12/23 Stop Date: 08/06/24 Status: Ordered montelukast 10 mg oral tablet 1, tablet, By Mouth, Daily, # 90 tablet, Refills 3, Maintenance, 11/23/23 8:40:00 EST, Route to Pharmacy Electronically, [facility] STORE 83101, 155, cm, 11/18/23 16:29:00 EST, Height, 83.7, [...] Maintenance, 03/28/23 13:04:00 EDT, Aerosol, [facility]/pharmacy #2476, replaced Proventil that is not available, 155, cm, 03/13/23 11:02:00 EDT, Height, 83.9, kg, 03/13/23 4:46:00 EDT... Start Date: 03/28/23 Stop Date: 08/25/23 Status: Ordered Zetia 10 mg oral tablet 1 tablet = 10 mg, By Mouth, Daily, # 30 tablet, 1 Refills, Maintenance, 10/28/23 10:28:00 EST, Tablet, [facility]/pharmacy #2476, Partial fill upon patient [...] Personnel Name: Justa HARRIS, Geni [place] Position: [facility] Associate Professional Member Role: Primary Care Nurse Address: Address: [address] [place] [address]- Name: Talia Matute RN Position: [facility] RN Member Role: Primary Care Nurse Name: Santi James MD Position: [facility] Physician - Primary Care Member Role: PCP Address: Address: [address] [place] [address] Adult & [place] [address]- Care Team Related Persons Name: PITER BAILEY Address: home [address] [place] [address] Name: DELMIS ADAMS Address: home [place], [place] Name: RUPERT PALMER Address: home [address] [place], [place] Name: DESIRAE CHAUDHARY Address: home [address] [place], [place]
--- OUTSIDE RECORDS SUMMARY | 2024-07-15 15:48 | XMS_ITS | Continuity of Care Document ---
Author Organization [facility] Address [address] [place] [address]- Care Team Providers Care Dresser Tender Name Role Phone Jacob DORAN, Santi Primary Care Physician [facility] Date[facility]s): 03/04/22 - 04/03/22 [facility] [address] [place], [place] [address] Allergies, Adverse Reactions, Alerts [...] given at [facility] [place] 7Admin Note: per pt, done at [facility] 8Admin Note: done @ [facility], form received 9Admin Note: given at work 10Admin Note: given in the fall 11Result Comment: [id number] 12Result Comment: [08/31/2018] [id number] 13Result Comment: [08/24/2015] given w/out incident 14Admin Note: per pt 15Admin Note: [facility] Medications Albuterol (Eqv-ProAir HFA) 90 mcg/inh inhalation aerosol 2 puffs, Inhalation, Every 6 hours, PRN Wheezing/Shortness of Breath, # 6.7 Gm, 11 Refills, Maintenance, 02/26/22 9:18:00 EDT, [facility]/pharmacy #4563, Partial fill upon patient request if the [...] each, 4 Refills, Maintenance, 02/07/22 12:08:00 EDT, [place], [facility]/pharmacy #2476, Partial fill upon patient request if the prescription is for a schedule II opioid drug., 1 sprays Nares... Start Date: 02/07/22 Stop Date: 07/07/22 Status: Ordered cetirizine 10 mg oral tablet 1 tablet, By Mouth, Daily, # 90 tablet, 3 Refills, [facility], 156, cm, 03/18/22 8:26:00 EDT, Height Start [...] 16 Gm,6 Refills, Maintenance, 11/06/21 10:21:00 EST, [place], [facility], Partial fill upon patientrequest if the prescription is for a schedule II op... Start Date: 11/06/21 Status: Ordered levothyroxine 0.05 mg oral tablet See Instructions, TAKE 1 TABLET BY MOUTH EVERY DAY, # 90 tablet, 1 Refills, [facility] STORE 00479, 156, cm, 02/07/22 11:31:00 EDT, Height Start Date: 02/19/22 Status: Ordered loratadine 10 mg oral tablet 10 mg, 1, tablet, By Mouth, Daily, # 30 tablet, Refills 11, Tot. Refills 11, Maintenance, 02/26/22 9:18:00 EDT, Route to Pharmacy Electronically, [facility]/pharmacy #5806, Partial fill upon patient requestif the prescription [...] EDT, Route to Pharmacy Electronically, [facility]/pharmacy #7556, Partial fill upon patient requestif the prescription is for a schedule II opioid lauro... Start Date: 02/26/22 Status: Ordered Symbicort 160mcg/4.5mcg Inhaler 2, puffs, Inhalation, 2 times a day, in the morning and the evening use with spacer chamber rinse mouth and throat after use, # 54 Gm, Refills 12, Tot. Refills 12, Maintenance, 02/26/22 9:18:00 EDT, [facility], Route to Pharmacy Electronically, [id number]... Start Date: 02/26/22 Status: Ordered Vitamin D3 [...]
--- OUTSIDE RECORDS SUMMARY | 2024-07-15 15:48 | XMS_ITS | Continuity of Care Document ---
Author Organization [facility] Address [address] [place] [address]- Care Team Providers Care Offender Employment Specialist Name Role Phone Santi James MD Primary Care Physician Encounter [facility] Date(s): 07/25/20 - 08/24/20 [facility] [address] [place] [address]- [facility] Attending Physician: Shelli Garcia MD Allergies, Adverse Reactions, Alerts Substance Reaction [...] fall 3Admin Note: done @ [facility], form received 4Result Comment: [id number] 5Result Comment: [08/31/2018] [id number] 6Result Comment: [08/24/2015] given w/out incident 7Admin Note: done @ [facility],form received 8Result Comment: [07/31/2015] [facility] 9Admin Note: done @ [facility] 10Admin Note: vis sheet given. 11Admin Note: work 12Admin Note: given at [facility] [place] 13Admin Note: per pt, done at [facility] 14Admin Note: per pt 15Admin Note: [facility] Medications acetaminophen 650 mg oral tablet, extended release 1 tablet = 650 mg, By Mouth, Every 8 hours, PRN Pain , Moderate, for 30 days, # 90 tablet, 7 Refills, Acute 11/08/20 11:12:00 EST, 03/13/20 11:12:00 EDT, ER Tablet, [facility]/pharmacy #2476, [...] 10/28/17 14:12:34, Aerosol, Route to Pharmacy Electronically, [id number], [facility]/pharmacy #1972, Compound [...] 8:39:00 EDT, Route to Pharmacy Electronically, [facility]/pharmacy #9656, increase in dose, 156, cm, 12/23/19 13:03:00 EST, Height, 78.8, kg, 12/20/19 10:35:00... Start Date: 02/14/20 Stop Date: 04/14/20 Status: Ordered ipratropium nasal 21 mcg/inh spray 2 sprays, Nares, Both, 2 times a day, # 30 mL, 0 Refills, Maintenance, 07/25/20 16:52:00 EDT, [place], [facility]/pharmacy #2476, 2 [...] 9:54:00 EDT, Route to Pharmacy Electronically, [facility]/pharmacy #2476, 156, cm, 12/23/19 13:03:00 EST, Height, [...]
--- OUTSIDE RECORDS SUMMARY | 2024-07-15 15:48 | XMS_ITS | Continuity of Care Document ---
Author Organization [facility] Address [address] [place] [address]- Care Team Providers Care Crm Analyst Name Role Phone Jacob DORAN, Santi Primary Care Physician [facility] Date(s): 03/10/24 - 04/09/24 [facility] [address], [place] [address] Allergies, Adverse Reactions, Alerts Substance [...] 11/03/99 Given 1Admin Note: done @ [facility],form received 2Result Comment: [07/31/2015] [facility] 3Admin Note: done @ [facility] 4Admin Note: vis sheet given. 5Admin Note: work 6Admin Note: given at [facility] [place] 7Admin Note: per pt, done at [facility] 8Admin Note: done @ [facility], form received 9Admin Note: given at work 10Admin Note: given in the fall 11Result Comment: [id number] 12Result Comment: [08/31/2018] [id number] 13Result Comment: [08/24/2015] given w/out incident 14Admin [...] tablet, 3 Refills, Maintenance, 01/17/23 12:44:00 EDT, [facility], 156.15, cm, 11/29/22 14:40:00 EST, Height, 79.5, [...] 90 Unknown,1 Refills, Maintenance, 06/10/23 8:18:00 EDT, [facility], 90, USE 1 SPRAY IN BOTH NOSTRILS [...] 0 Refills, Maintenance, 03/10/24 12:10:00 EDT, Tablet, [facility]/pharmacy #1422, Partial fill upon patient request if the [...] 4 Refills, Maintenance, 09/02/23 11:04:00 EDT, Tablet, [facility]/pharmacy #2476, Partial [...] 12/04/23 7:25:00 EST, Route to Pharmacy Electronically, [facility] STORE 11817, 155, cm, 11/18/23 16:29:00 EST, Height, 83.7, kg, 11/06/23 9:0... Start Date: 12/04/23 Status: Ordered ibuprofen 800 mg oral tablet 1, tablet, By Mouth, 3 times a day, PRN, X30 DAYS, STOP ASPIRIN WHILE TAKING THIS. Take with food and/or milk, # 90 tablet, Refills 2, Tot. Refills 2, Maintenance, Pain , Moderate, 04/05/24 15:20:00 EDT, Route to Pharmacy Electronically, [facility]/pharmacy... Start Date: 04/05/24 Stop Date: 07/04/24 Status: Ordered levothyroxine 0.05 mg oral tablet 1 tablet, By Mouth, Daily, # 90 tablet, 3 Refills, Maintenance, 08/12/23 15:31:00 EDT, [facility]/pharmacy#2476, 155, cm, 08/12/23 15:09:00 EDT, Height, 83.9, kg, 03/13/23 4:46:00 EDT, Dry Weight Start Date: 08/12/23 Stop Date: 08/06/24 Status: Ordered montelukast 10 mg oral tablet 1, tablet, By Mouth, Daily, # 90 tablet, Refills 3, Maintenance, 11/23/23 8:40:00 EST, Route to Pharmacy Electronically, [facility] STORE 20472, 155, cm, 11/18/23 16:29:00 EST, Height, 83.7, [...] 2 Refills, Maintenance, 01/27/24 14:50:00 EDT, Tablet, [facility]/pharmacy #2476, may use OTC formulation, 155, [...] Primary Care Member Role: PCP Address: Address: [address] [place] [address] Adult [place] [address]- Care Team Related Persons Name: PITER BAILEY Address: home [address] [place] [address] Name: DELMIS ADAMS Address: [place] [address] Name: RUPERT PALMER Address: home [address] [place] [address] Name: DESIRAE CHAUDHARY Address: home [address] [place] [address]
--- OUTSIDE RECORDS SUMMARY | 2024-07-15 15:49 | XMS_ITS | Continuity of Care Document ---
Author Organization [facility] Address [address] [place] [address]- Care Team Providers Care Bone Char Kiln Tender Name Role Phone Jacob DORAN, Santi Primary Care Physician [facility] Date[facility]s): 09/10/23 - 10/10/23 [facility] [address] [place], [place] [address] Allergies, Adverse Reactions, Alerts Substance [...] Nitin rded influenza virus vaccine, inactivated 08/01/22 Nitni rded influenza virus vaccine, inactivated 08/09/21 Nitin [...] at [facility] [place] 7Admin Note: per pt, done at [facility] 8Admin Note: done @ [facility], form received 9Admin Note: given at work 10Admin Note: given in the fall 11Result Comment: [id number] 12Result Comment: [08/31/2018] [id number] 13Result Comment: [08/24/2015] given w/out incident 14Admin [...] Refills, Maintenance, 01/17/23 12:44:00 EDT, [facility], 156.15, cm, 11/29/22 14:40:00 EST, Height, 79.5, [...] 90 Unknown,1 Refills, Maintenance, 06/10/23 8:18:00 EDT, [facility] 532[facility], 90, USE 1 SPRAY IN BOTH NOSTRILS [...] 11 Refills, Soft Stop, 03/14/23 15:31:00 EDT, [facility]/pharmacy #6790, Partial fill upon patient request if theprescription is for a schedule II opioid drug., 155... Start Date: 03/14/23 Status: Ordered ergocalciferol 16987 iu oral capsule 50,000 International_Units, 1, capsule, By Mouth, Every week, # 12 capsule, Refills 0, Tot. Refills0, Maintenance, 06/12/23 7:24:00 EDT, [facility] Partial[facility] upon patient request if the prescription is fo... Start Date: 06/12/23 Stop Date: 09/04/23 Status: Ordered fexofenadine 180 mg oral tablet 1 tablet = 180 mg, By Mouth, Daily, PRN for allergy symptoms, # 90 tablet, 4 Refills, Maintenance, 09/02/23 11:04:00 EDT, Tablet, [facility]/pharmacy #2476, Partial fill upon patient request if the prescription is for a schedule II opioid drug., 155, cm, ... Start Date: 09/02/23 Stop Date: 11/25/24 Status: Ordered fluconazole 150 mg oral tablet 1 tablet = 150 mg, By Mouth, Once, repeat dose if still having symptoms in 72 hours, # 2 tablet, 0 Refills, Soft Stop, 10/03/23 16:14:00 EST, [facility] Partial fill upon patient request if the prescription is for a schedule II opioid... Start Date: 10/03/23 Status: Ordered levothyroxine 0.05 mg oral tablet 1 tablet, By Mouth, Daily, # 90 tablet, 3 Refills, Maintenance, 08/12/23 15:31:00 EDT, [facility]/pharmacy#2476, 155, cm, 08/12/23 15:09:00 EDT, Height, [...] Soft Stop, 09/30/23 11:01:00 EST, Tablet, [facility], pt has taken t his medication in [...] information Care Team Personnel Name: Justa HARRIS, eGni Orlando Position: [facility] Associate Professional Member Role: Primary Care Nurse Address: Address: [address] [place] [address]- Name: Talia Matute RN Position: [facility] RN Member Role: Primary Care Nurse Name: Santi James MD Position: [facility] Physician - Primary Care Member Role: PCP Address: Address: [address] [place] [address] Adult & [place] [address]- Care Team Related Persons Name: PITER BAILEY Address: home [address] [place] [address] Name: DELMIS ADAMS Address: [place] [address] Name: RUPERT PALMER Address: [address] [place] [address] Name: DESIRAE CHAUDHARY Address: [address] [place] [address]
--- OUTSIDE RECORDS SUMMARY | 2024-07-15 15:49 | XMS_ITS | Continuity of Care Document ---
Author Organization [facility] Address [address] [place] [address]- Care Team Providers Care Mounter Name Role Phone Jacob DORAN, Santi Primary Care Physician [facility] Date(s): 08/14/21 - 09/13/21 [facility] [address] [place], [place] [address] Allergies, Adverse Reactions, Alerts [...] Note: given at [facility] [place] 7Admin Note: per pt, done at [facility] 8Admin Note: done @ [facility], form received 9Admin Note: given at work 10Admin Note: given in the fall 11Result Comment: [id number] 12Result Comment: [08/31/2018] [id number] 13Result Comment: [08/24/2015] given w/out incident 14Admin Note: per pt 15Admin Note: [facility] Medications acetaminophen 650 mg oral tablet, extended release 1 tablet = 650 mg, By Mouth, Every 8 hours, PRN Pain , Moderate, for 30 days, # 90 tablet, 7 Refills, Acute 10/24/21 12:47:00 EST, 02/26/21 12:47:00 EDT, ER Tablet, [facility] #[facility]89[facility], 156, cm, 03/13/20 10:31:00 EDT, Height, 78.8, kg, ... Start Date: 02/26/21 Stop Date: 10/24/21 Status: Ordered albuterol 0.083% inhalation solution 3 mL = 2.5 mg, Inhalation, Every 6 hours, PRN for wheezing, Dx: asthma, # 100 each, 4 Refills, Maintenance, 12/01/19 12:54:00 EST, Solution, [facility]/pharmacy #2476, 156, cm, 12/01/19 12:40:00 EST, Height, 79.6, kg, 03/10/19 14:10:00 EDT, Dry Weight Start Date: 12/01/19 Stop Date: 04/29/20 Status: Ordered albuterol CFC free 90 mcg/inh inhalation aerosol 2, puffs, Inhalation, Every 4 hours, PRN, # 1 each, Refills 3, Tot. Refills 3, Maintenance, 03/13/21 8:25:00 EDT, Aerosol, Route to Pharmacy Electronically, [id number], [facility] #27336, 156, cm, 03/13/21 8:16:00 E... Start Date: [...] 3 Refills, Maintenance, 03/13/21 8:26:00 EDT, Tablet, [facility] #01569, 156, cm, 03/13/21 8:16:00 EDT, Height, 78.8, [...] 16 Gm,0 Refills, Maintenance, 08/02/21 11:22:00 EDT, [place], [facility] #00510, Partial fill upon patient request if the prescription is for a sched... Start Date: 08/02/21 Status: Ordered ipratropium nasal 21 mcg/inh spray 2 sprays, Nares, Both, 2 times a day, # 30 mL, 0 Refills, Maintenance, 07/25/20 16:52:00 EDT, [place], [facility]/pharmacy #8056, 2 sprays Nares, Both 2 times a day, 156, cm, 03/13/20 10:31:00 EDT, Height, 78.8, kg, 12/20/19 10:35:00 EST, Dry Weight Start Date: 07/25/20 Status: Ordered levothyroxine 0.05 mg oral tablet 1 tablet = 50 mcg, By Mouth, Daily, # 90 tablet, 3 Refills, Maintenance, 03/13/21 8:24:00 EDT, Tablet, [facility] #[id number], 156, cm, 03/13/21 8:16:00 EDT, Height, 78.8, kg, 12/20/19 10:35:00 EST, Dry Weight Start Date: 03/13/21 Stop Date: 03/08/22 Status: Ordered montelukast 10 mg oral tablet See Instructions, TAKE 1 TABLET BY MOUTH DAILY, # 90 tablet, Refills 1, Instructions Replace Required Details, Route to Pharmacy Electronically, [facility] #13086, 156, cm, 03/13/21 8:35:00EDT, Height, 78.8, kg, [...] 9:38:00 EDT, Aerosol, Route to Pharmacy Electronically, [id number]... Start Date: 09/04/21 Status: Ordered Zithromax Z-Tramaine 250 mg oral tablet See Instructions, as directed on package labeling, # 1 pack/packet, 0 Refills, Maintenance, 08/16/21 16:24:00 EDT, [facility]/pharmacy #6316, Partial fill upon patient request if the [...]
--- OUTSIDE RECORDS SUMMARY | 2024-07-15 15:49 | XMS_ITS | Continuity of Care Document ---
Author Organization [facility] Address [address] [place] [address]- Care Team Providers Care Social Media Campaign Manager Name Role Phone Santi James MD Primary Care Physician Encounter [facility] [place] [place] Date(s): 03/04/22 - 04/03/22 [facility] [address] [place] [address] Allergies, Adverse Reactions, [...] (Td) 11/03/99 Given 1Admin Note: done @ [facility],form received 2Result Comment: [07/31/2015] [facility] 3Admin Note: done @ [facility] 4Admin Note: vis sheet given. 5Admin Note: work 6Admin Note: given at [facility] in [place] 7Admin Note: per pt, done at [facility] 8Admin Note: done @ [facility], form received 9Admin Note: given at work 10Admin Note: given in the fall 11Result Comment: [id number] 12Result Comment: [08/31/2018] [id number] 13Result Comment: [08/24/2015] given w/out incident 14Admin Note: per pt 15Admin Note: [facility] Medications Albuterol (Eqv-ProAir HFA) 90 mcg/inh inhalation aerosol 2 puffs, Inhalation, Every 6 hours, PRN Wheezing/Shortness of Breath, # 6.7 Gm, 11 Refills, Maintenance, 02/26/22 9:18:00 EDT, [facility]/pharmacy #5191, Partial fill upon patient request if the [...] each, 4 Refills, Maintenance, 02/07/22 12:08:00 EDT, [place], [facility]/pharmacy #2476, Partial fill upon patient request if the prescription is for a schedule II opioid drug., 1 sprays Nares... Start Date: 02/07/22 Stop Date: 07/07/22 Status: Ordered cetirizine 10 mg oral tablet 1 tablet, By Mouth, Daily, # 90 tablet, 3 Refills, [facility], 156, cm, 03/18/22 8:26:00 EDT, Height Start [...] 16 Gm,6 Refills, Maintenance, 11/06/21 10:21:00 EST, [place], [facility], Partial fill upon patientrequest if the prescription is for a schedule II op... Start Date: 11/06/21 Status: Ordered levothyroxine 0.05 mg oral tablet See Instructions, TAKE 1 TABLET BY MOUTH EVERY DAY, # 90 tablet, 1 Refills, [facility] STORE 41737, 156, cm, 02/07/22 11:31:00 EDT, Height Start Date: 02/19/22 Status: Ordered loratadine 10 mg oral tablet 10 mg, 1, tablet, By Mouth, Daily, # 30 tablet, Refills 11, Tot. Refills 11, Maintenance, 02/26/22 9:18:00 EDT, Route to Pharmacy Electronically, [facility]/pharmacy #3086, Partial fill upon patient requestif the prescription [...] 02/26/22 9:18:00 EDT, Route to Pharmacy Electronically, [facility]/pharmacy #3576, Partial fill upon patient requestif the prescription is for a schedule II opioid lauro... Start Date: 02/26/22 Status: Ordered Symbicort 160mcg/4.5mcg Inhaler 2, puffs, Inhalation, 2 times a day, in the morning and the evening use with spacer chamber rinse mouth and throat after use, # 54 Gm, Refills 12, Tot. Refills 12, Maintenance, 02/26/22 9:18:00 EDT, Aerosol, Route to Pharmacy Electronically, [id number]... Start Date: 02/26/22 Status: Ordered Vitamin D3 [...]
--- OUTSIDE RECORDS SUMMARY | 2024-07-15 15:49 | XMS_ITS | Continuity of Care Document ---
Author Organization [facility] Address [address] [place] [address]- Care Team Providers Care Injection Molding Engineer Name Role Phone Jacob DORAN, Santi Primary Care Physician Encounter [facility] Date(s): 01/20/20 - 01/30/20 [facility] [address] [address]- [facility] Attending Physician: Ken Galarza Admitting Physician: [...] in the fall 3Admin Note: done @ [facility], form received 4Result Comment: [id number] 5Result Comment: [08/31/2018] [id number] 6Result Comment: [08/24/2015] given w/out incident 7Admin Note: done @ [facility],form received 8Result Comment: [07/31/2015] [facility] 9Admin Note: done @ [facility] 10Admin Note: vis sheet given. 11Admin Note: work 12Admin Note: given at [facility] 13Admin Note: per pt, done at [facility] 14Admin Note: per pt 15Admin Note: [facility] Medications acetaminophen 650 mg oral tablet, extended release 1 tablet = 650 mg, By Mouth, Every 8 hours, PRN as needed for pain, for 30 days, # 100 tablet, 1 Refills, Acute 02/01/20 11:16:00 EDT, 12/03/19 11:16:00 EST, ER Tablet, [facility]/pharmacy #2476, 156, cm, 12/03/19 8:37:00 EST, Height, [...] 4 Refills, Maintenance, 12/01/19 12:54:00 EST, Solution, [facility]/pharmacy #2476, 156, cm, 12/01/19 12:40:00 EST, Height, 79.6, kg, 03/10/19 14:10:00 EDT, Dry Weight Start Date: 12/01/19 Stop Date: 04/29/20 Status: Ordered albuterol CFC free 90 mcg/inh inhalation aerosol 2, puffs, Inhalation, Every 4 hours, PRN, # 9 Gm, Refills 0, Tot. Refills 0, Maintenance, 10/28/17 14:12:34, Aerosol, Route to Pharmacy Electronically, [id number], [facility]/pharmacy #1972, Compound Start Date: 10/28/17 Status: Ordered [...] capsule, Refills 5, Tot. Refills 5, Maintenance, 01/19/20 14:12:00 EDT, Route to Pharmacy Electronically, [facility]/pharmacy #2476, increase in dose, 156, cm, 12/23/19 13:03:00 EST, Height, 78.8, kg, 12/20/19 10:35:0... Start Date: 01/19/20 Stop Date: 07/17/20 Status: Ordered levothyroxine 0.05 mg oral tablet [...] 09/13/19 13:49:27 EST, Route to Pharmacy Electronically, [id number], [facility]/pharmacy #2476 Start Date: 09/13/19 Stop Date: 05/10/20 [...]
--- OUTSIDE RECORDS SUMMARY | 2024-07-15 15:49 | XMS_ITS | Continuity of Care Document ---
Author Organization [facility] Address [address] [place] [address] [address] [place] [address]- Care Team Providers Care Equipment Service Engineer Name Role Phone Santi James MD Primary Care Physician [facility] Date(s): 02/27/23 - 03/29/23 [facility] [address] [place] [address]- Allergies, Adverse Reactions, Alerts Substance Reaction Severity [...] Note: given at [facility] in [place] 7Admin Note: per pt, done at [facility] 8Admin Note: done @ [facility], form received 9Admin Note: given at work 10Admin Note: given in the fall 11Result Comment: [id number] 12Result Comment: [08/31/2018] [id number] 13Result Comment: [08/24/2015] given w/out incident 14Admin Note: per pt 15Admin Note: [facility] Medications acetaminophen 650 mg oral tablet, extended release 1 tablet, By Mouth, Every 8 hours, PRN NEEDED FOR PAIN, # 90 tablet, 3 Refills, Maintenance, 01/17/23 12:44:00 EDT, [facility], 156.15, cm, 11/29/22 14:40:00 EST, Height, 79.5, [...] each, 10 Refills, Maintenance, 11/25/22 15:18:00 EST, [place], [facility]/pharmacy #2476, replaces 0.15% dose, 1 sprays [...] Refills, Maintenance, 03/01/23 14:21:00 EDT, [facility], 156.15, cm, 11/29/22 14:40:00 EST, Height, 79.5, [...] 4 Refills, Maintenance, 03/28/23 13:04:00 EDT, Aerosol, [facility]/pharmacy #4686, replaced Proventil that is not available, 155, [...] Personnel Name: Justa HARRIS, Geni Orlando Position: [facility] Associate Professional Member Role: Primary Care Nurse Address: Address: [address] [place] [address]- Name: Talia Matute RN Position: [facility] ED RN W/OE and Tasks Member Role: Primary Care Nurse Name: Santi James MD Position: [facility] Physician - Primary Care Member Role: PCP Address: Address: [address] [place] [address] Adult [place] [address]- Care Team Related Persons Name: PITER BAILEY Address: home [address] [place] [address] Name: DELMIS ADAMS Address: home [address] [place], [place] Name: RUPERT PALMER Address: home [address] [place], [place] Name: DESIRAE CHAUDHARY Address: home [address] [place], [place]
--- OUTSIDE RECORDS SUMMARY | 2024-07-15 15:49 | XMS_ITS | Continuity of Care Document ---
Author Organization [facility] Address [address] [place] [address]- Care Team Providers Care Electric Hoist Operator Name Role Phone Santi James MD Primary Care Physician Encounter [facility] [place] Date(s): 10/02/20 - 11/01/20 [facility] [address] [place], [place] [address] Allergies, Adverse Reactions, Alerts [...] the fall 3Admin Note: done @ [facility], form received 4Result Comment: [id number] 5Result Comment: [08/31/2018] [id number] 6Result Comment: [08/24/2015] given w/out incident 7Admin Note: done @ [facility],form received 8Result Comment: [07/31/2015] [facility] 9Admin Note: done @ [facility] 10Admin Note: vis sheet given. 11Admin Note: work 12Admin Note: given at [facility] in [place] 13Admin Note: per pt, done at [facility] 14Admin Note: per pt 15Admin Note: [facility] Medications acetaminophen 650 mg oral tablet, extended release 1 tablet = 650 mg, By Mouth, Every 8 hours, PRN Pain , Moderate, for 30 days, # 90 tablet, 7 Refills, Acute 11/08/20 11:12:00 EST, 03/13/20 11:12:00 EDT, ER Tablet, [facility]/pharmacy #2476, 156, cm, 03/13/20 10:31:00 EDT, Height, 78.8, kg, 12/20/19 10:35:0... Start Date: 03/13/20 Stop Date: 11/08/20 Status: Ordered albuterol 0.083% inhalation solution 3 mL = 2.5 mg, Inhalation, Every 6 hours, PRN for wheezing, Dx: asthma, # 100 each, 4 Refills, Maintenance, 12/01/19 12:54:00 EST, Solution, [facility]/pharmacy #2476, 156, cm, 12/01/19 12:40:00 EST, Height, 79.6, kg, 03/10/19 14:10:00 EDT, Dry Weight Start Date: 12/01/19 Stop Date: 04/29/20 Status: Ordered albuterol CFC free 90 mcg/inh inhalation aerosol 2, puffs, Inhalation, Every 4 hours, PRN, # 9 Gm, Refills 0, Tot. Refills 0, Maintenance, 10/28/17 14:12:34, Aerosol, Route to Pharmacy Electronically, [id number], [facility]/pharmacy #1972, Compound Start Date: 10/28/17 [...] 5 Refills, Maintenance, 10/10/20 12:10:00 EST, Tablet, [facility]/pharmacy #2476, 156, cm, 03/13/20 10:31:00 [...] 10/05/20 15:45:00 EST, Route to Pharmacy Electronically, [facility] STORE 13803, 156, cm, 03/13/20 10:31:00 EDT, Height, 78.8, kg, 12/20/19 10:35:00 EST, Dry Weight Start Date: 10/05/20 Status: Ordered ipratropium nasal 21 mcg/inh spray 2 sprays, Nares, Both, 2 times a day, # 30 mL, 0 Refills, Maintenance, 07/25/20 16:52:00 EDT, [place], [facility]/pharmacy #2476, 2 sprays Nares, Both 2 times a day, 156, cm, 03/13/20 10:31:00 EDT, Height, 78.8, kg, 12/20/19 10:35:00 EST, Dry Weight Start Date: 07/25/20 Status: Ordered levothyroxine 0.05 mg oral tablet 1 tablet = 50 mcg, By Mouth, Daily, # 90 tablet, 3 Refills, Maintenance, 03/13/20 11:08:00 EDT, [facility], cm, 03/13/20 10:31:00 EDT, Height, 78.8, kg, 12/20/19 10:35:00 EST, Dry Weight Start Date: 03/13/20 Stop Date: 03/08/21 Status: Ordered montelukast 10 mg oral tablet 1, tablet, By Mouth, Daily, # 90 tablet, Refills 2, Tot. Refills 0, Maintenance, 10/05/20 15:45:00 EST, Route to Pharmacy Electronically, [facility]ORE 09060, 156, cm, 03/13/20 10:31:00 EDT, Height, 78.8, [...] Refills, Soft Stop, 09/14/20 8:46:00 EST, Tablet, [facility]/pharmacy #2476, 156,cm, 03/13/20 10:31:00 EDT, Height, 78.8, [...]
--- OUTSIDE RECORDS SUMMARY | 2024-07-15 15:49 | XMS_ITS | Continuity of Care Document ---
Author Organization [facility] Address [address] [place] [address]- Care Team Providers Care Waste Baler Name Role Phone Santi James MD Primary Care Physician [facility]counter [facility] Date(s): 03/25/23 - 04/24/23 [facility] [address] [place] [address]- Attending Physician: Ken Galarza Admitting Physician: Ken [...] (Td) 11/03/99 Given 1Admin Note: done @ [facility],form received 2Result Comment: [07/31/2015] [facility] 3Admin Note: [facility] 4Admin Note: vis sheet given. 5Admin Note: work 6Admin Note: given at [facility] [place] 7Admin Note: per pt, done at [facility] 8Admin Note: done @ [facility], form received 9Admin Note: given at work 10Admin Note: given in the fall 11Result Comment: [id number] 12Result Comment: [08/31/2018] [id number] 13Result Comment: [08/24/2015] given w/out incident 14Admin Note: per pt 15Admin Note: [facility] Medications acetaminophen 650 mg oral tablet, extended release 1 tablet, By Mouth, Every 8 hours, PRN NEEDED FOR PAIN, # 90 tablet, 3 Refills, Maintenance, 01/17/23 12:44:00 EDT, [facility], 156.15, cm, 11/29/22 14:40:00 EST, Height, 79.5, [...] each, 10 Refills, Maintenance, 11/25/22 15:18:00 EST, [place], [facility]/pharmacy #2476, replaces 0.15% dose, 1 [...] 155... Start Date: 03/14/23 Status: Ordered ergocalciferol 60980 iu oral capsule 50,000 International_Units, 1, capsule, By Mouth, Every week, # 12 capsule, Refills 0, Tot. Refills0, Maintenance, 04/10/23 9:13:00 EDT, Route to Pharmacy Electronically, [facility]/pharmacy #[id number], Partialfill upon patient request [...] Refills, Maintenance, 03/01/23 14:21:00 EDT, [facility], 156.15, cm, 11/29/22 14:40:00 EST, Height, 79.5, [...] 4 Refills, Maintenance, 03/28/23 13:04:00 EDT, Aerosol, [facility]/pharmacy #2476, replaced Proventil that is [...] Member Role: Primary Care Nurse Address: Address: [address] [place] [address]- Name: Talia Matute RN Position: S RN Member Role: Primary Care Nurse Name: Santi James MD Position: S Physician - Primary Care Member Role: PCP Address: Address: [address] [place] [address] Adult [place] [address]- [place] Care Team Related Persons Name: LEO PITER Address: home [address] [place] [address] Name: DELMIS ADAMS Address: home [place], [place] Name: RUPERT PALMER Address: home [address] [place], [place] Name: DESIRAE CHAUDHARY Address: home [address] [place], [place]
--- OUTSIDE RECORDS SUMMARY | 2024-07-15 15:49 | XMS_ITS | Continuity of Care Document ---
Author Organization [facility] Address [address] [place] [address]- Care Team Providers Care Vehicle Return Associate Name Role Phone Santi James MD Primary Care Physician [place] [facility] [place] 06/13/21 - 07/13/21 [facility] [address] [place], [place] [address] Allergies, Adverse Reactions, Alerts Substance [...] Given 1Admin Note: done @ [facility], form received 2Admin Note: done @ [facility],form received 3Result Comment: [07/31/2015] [facility] 4Admin Note: done @ [facility] 5Admin Note: vis sheet given. 6Admin Note: work 7Admin Note: given at [facility] [place] 8Admin Note: per pt, done at [facility] 9Admin Note: given at work 10Admin Note: given in the fall 11Result Comment: [id number] 12Result Comment: [08/31/2018] [id number] 13Result Comment: [08/24/2015] given w/out incident 14Admin Note: per pt 15Admin Note: [facility] Medications acetaminophen 650 mg oral tablet, extended release 1 tablet = 650 mg, By Mouth, Every 8 hours, PRN Pain , Moderate, for 30 days, # 90 tablet, 7 Refills, Acute 10/24/21 12:47:00 EST, 02/26/21 12:47:00 EDT, ER Tablet, [facility] #[id number], 156, cm, 03/13/20 10:31:00 EDT, Height, 78.8, kg, ... Start Date: 02/26/21 Stop Date: 10/24/21 Status: Ordered albuterol 0.083% inhalation solution 3 mL = 2.5 mg, Inhalation, Every 6 hours, PRN for wheezing, Dx: asthma, # 100 each, 4 Refills, Maintenance, 12/01/19 12:54:00 EST, Solution, [facility]/pharmacy #2476, 156, cm, 12/01/19 12:40:00 EST, Height, 79.6, kg, 03/10/19 14:10:00 EDT, Dry Weight Start Date: 12/01/19 Stop Date: 04/29/20 Status: Ordered albuterol CFC free 90 mcg/inh inhalation aerosol 2, puffs, Inhalation, Every 4 hours, PRN, # 1 each, Refills 3, Tot. Refills 3, Maintenance, 03/13/21 8:25:00 EDT, Aerosol, Route to Pharmacy Electronically, [id number], [facility][id number], 156, cm, 03/13/21 8:16:00 E... Start Date: [...] 3 Refills, Maintenance, 03/13/21 8:26:00 EDT, Tablet, [facility] #[id number], 156, cm, 03/13/21 8:16:00 EDT, Height, 78.8, kg, 12/20/19 10:35:00 EST, Dry Weight Start Date: 03/13/21 Stop Date: 03/08/22 Status: Ordered Cipro 250 mg oral tablet 1 tablet = 250 mg, By Mouth, Every 12 hours, for 10 days, # 20 tablet, 0 Refills, Acute 07/23/21 16:09:00 EDT, 07/13/21 16:09:00 EDT, Tablet, [facility] #[id number], 156, cm, 03/13/21 8:35:00 EDT, Height, 78.8, [...] mL, 0 Refills, Maintenance, 07/25/20 16:52:00 EDT, [place], [facility]/pharmacy #9816, 2 sprays Nares, Both 2 times a day, 156, cm, 03/13/20 10:31:00 EDT, Height, 78.8, kg, 12/20/19 10:35:00 EST, Dry Weight Start Date: 07/25/20 Status: Ordered levothyroxine 0.05 mg oral tablet 1 tablet = 50 mcg, By Mouth, Daily, # 90 tablet, 3 Refills, Maintenance, 03/13/21 8:24:00 EDT, Tablet, [facility] #16495, 156, cm, 03/13/21 8:16:00 EDT, Height, 78.8, kg, 12/20/19 10:35:00 EST, Dry Weight Start Date: 03/13/21 Stop Date: 03/08/22 Status: Ordered montelukast 10 mg oral tablet See Instructions, TAKE 1 TABLET BY MOUTH DAILY, # 90 tablet, Refills 1, Instructions Replace Required Details, Route to Pharmacy Electronically, [facility] #[id number], 156, cm, 03/13/21 8:35:00EDT, Height, 78.8, kg, [...] each, 0 Refills, Maintenance, 09/14/20 8:47:00 EST, [facility]/pharmacy #2476, 1 puffs Inhalation 2 times a [...]
--- OUTSIDE RECORDS SUMMARY | 2024-07-15 15:49 | XMS_ITS | Continuity of Care Document ---
Author Organization [facility] Address [address] [place] [address]- Care Team Providers Care Shoe Associate Name Role Phone Santi James MD Primary Care Physician [facility]counter [facility] Date(s): 11/05/22 - 12/05/22 [facility] [address] [place], [place] [address] Allergies, Adverse Reactions, Alerts [...] 6Admin Note: given at [facility] [place] 7Admin Note: per pt, done at [facility] 8Admin Note: done @ [facility], form received 9Admin Note: given at work 10Admin Note: given in the fall 11Result Comment: [id number] 12Result Comment: [08/31/2018] [id number] 13Result Comment: [08/24/2015] given w/out incident 14Admin Note: per pt 15Admin Note: [facility] Medications acetaminophen 650 mg oral tablet, extended release 1 tablet, By Mouth, Every 8 hours, PRN NEEDED FOR PAIN, # 90 tablet, 3 Refills, [facility], cm, 04/04/22 7:36:00 EDT, Height, 78.9, kg, 04/04/22 7:36:00 EDT, Dry Weight Start Date: 04/08/22 Status: Ordered Albuterol (Eqv-ProAir HFA) 90 mcg/inh inhalation aerosol 2 puffs, Inhalation, Every 6 hours, PRN Wheezing/Shortness of Breath, # 6.7 Gm, 11 Refills, Maintenance, 08/29/22 9:07:00 EDT, [facility]/pharmacy #2476, Partial fill upon patient [...] each, 10 Refills, Maintenance, 11/25/22 15:18:00 EST, [place], [facility]/pharmacy #2476, replaces 0.15% dose, 1 [...] 16 Gm, 11 Refills, 08/29/22 9:07:00 EDT, [facility]/pharmacy #2476, USE 1 SPRAY IN EACH NOSTRL 2 TIMES A DAYX 5 DAYS, AND THEN DAILY THEREAFTER, 156.15, cm, 10... Start Date: 08/29/22 Status: Ordered levothyroxine 0.05 mg oral tablet See Instructions, TAKE 1 TABLET BY MOUTH EVERY DAY, # 90 tablet, 1 Refills, 09/01/22 19:54:00 EDT, [facility]/pharmacy #2476, 156.15, cm, 08/29/22 8:44:00 EDT, Height, 79.5, kg, 06/06/22 11:17:00 EDT, Dry Weight Start Date: 09/01/22 Status: Ordered loratadine 10 mg oral tablet 10 mg, 1, tablet, By Mouth, Daily, # 30 tablet, Refills 11, Tot. Refills 11, Maintenance, 08/29/22 9:07:00 EDT, Route to Pharmacy Electronically, [facility]/pharmacy #2476, Partial fill upon patient [...] 1 each, 11 Refills, Maintenance, 11/28/2314:07:00 EST, [facility], Partial fill upon patient [...] 08/29/22 9:07:00 EDT, Route to Pharmacy Electronically, [facility]/pharmacy #8756, Partial fill upon patient requestif the prescription is for a schedule II opioid lauro... Start Date: 08/29/22 Status: Ordered Symbicort 160mcg/4.5mcg Inhaler 2, puffs, Inhalation, 2 times a day, in the morning and the evening use with spacer chamber rinse mouth and throat after use, # 1 each, Refills 5, Tot. Refills 5, Maintenance, 10/17/22 10:03:00 EST, Aerosol, Route to Pharmacy Electronically, [id number]... Start Date: 10/17/22 Status: Ordered Vitamin D3 [...] Personnel Name: Justa HARRIS, Geni Orlando Position: [facility] Associate Professional Member Role: Primary Care Nurse Address: Address: [address] [place] [address]- Name: Santi James MD Position: [facility] Primary Care Physician Member Role: PCP Address: Address: [address] [place] [address]- Care Team Related Persons Name: PITER BAILEY Address: home [address] [place] [address] Name: DELMIS ADAMS Address: home [place], [place] Name: RUPERT PALMER Address: home [address] [place], [place] Name: DESIRAE CHAUDHARY Address: home [address] [place], [place]
--- OUTSIDE RECORDS SUMMARY | 2024-07-15 15:49 | XMS_ITS | Continuity of Care Document ---
Author Organization [facility] Address [address] [place] [address]- Care Team Providers Care Child Support Agent Name Role Phone Jacob DORAN, Santi Primary Care Physician Encounter [facility] Date(s): 02/26/22 - 03/29/22 [facility] [place] [address] [place] [address]- Attending Physician: Aleja Fontenot MD Allergies, Adverse Reactions, Alerts Substance Reaction [...] Note: work 6Admin Note: given at [facility] [place] 7Admin Note: per pt, done at [facility] 8Admin Note: done @ [facility], form received 9Admin Note: given at work 10Admin Note: given in the fall 11Result Comment: [id number] 12Result Comment: [08/31/2018] [id number] 13Result Comment: [08/24/2015] given w/out incident 14Admin Note: per pt 15Admin Note: [facility] Medications Albuterol (Eqv-ProAir HFA) 90 mcg/inh inhalation aerosol 2 puffs, Inhalation, Every 6 hours, PRN Wheezing/Shortness of Breath, # 6.7 Gm, 11 Refills, Maintenance, 02/26/22 9:18:00 EDT, [facility]/pharmacy #5437, Partial fill upon patient request if the [...] each, 4 Refills, Maintenance, 02/07/22 12:08:00 EDT, [place], [facility]/pharmacy #2476, Partial fill upon patient request if the prescription is for a schedule II opioid drug., 1 sprays Nares... Start Date: 02/07/22 Stop Date: 07/07/22 Status: Ordered cetirizine 10 mg oral tablet 1 tablet, By Mouth, Daily, # 90 tablet, 3 Refills, [facility], 156, cm, 03/18/22 8:26:00 EDT, Height Start [...] 16 Gm,6 Refills, Maintenance, 11/06/21 10:21:00 EST, [place], [facility], Partial fill upon patientrequest if the prescription is for a schedule II op... Start Date: 11/06/21 Status: Ordered levothyroxine 0.05 mg oral tablet See Instructions, TAKE 1 TABLET BY MOUTH EVERY DAY, # 90 tablet, 1 Refills, [facility] 425[facility], 156, cm, 02/07/22 11:31:00 EDT, Height Start Date: 02/19/22 Status: Ordered loratadine 10 mg oral tablet 10 mg, 1, tablet, By Mouth, Daily, # 30 tablet, Refills 11, Tot. Refills 11, Maintenance, 02/26/22 9:18:00 EDT, Route to Pharmacy Electronically, [facility]/pharmacy #0486, Partial fill upon patient requestif the prescription [...] Electronically, [facility]/pharmacy #7226, Partial fill upon patient requestif the prescription is for a schedule II opioid lauro... Start Date: 02/26/22 Status: Ordered Symbicort 160mcg/4.5mcg Inhaler 2, puffs, Inhalation, 2 times a day, in the morning and the evening use with spacer chamber rinse mouth and throat after use, # 54 Gm, Refills 12, Tot. Refills 12, Maintenance, 02/26/22 9:18:00 EDT, Aerosol, Route to Pharmacy Electronically, [id number]... Start Date: 02/26/22 Status: Ordered Vitamin D3 [...]
--- OUTSIDE RECORDS SUMMARY | 2024-07-15 15:49 | XMS_ITS | Continuity of Care Document ---
Author Organization [facility] Address [address] [place] [address]- Care Team Providers Care Customer Sales Representative Name Role Phone Santi James MD Primary Care Physician [facility] Date(s): 07/18/21 - 08/17/21 [facility] [address] [place], [place] [address] Allergies, Adverse [...] Note: given at [facility] [place] 7Admin Note: per pt, done at [facility] 8Admin Note: done @ [facility], form received 9Admin Note: given at work 10Admin Note: given in the fall 11Result Comment: [id number] 12Result Comment: [08/31/2018] [id number] 13Result Comment: [08/24/2015] given w/out incident 14Admin Note: per pt 15Admin Note: [facility] Medications acetaminophen 650 mg oral tablet, extended release 1 tablet = 650 mg, By Mouth, Every 8 hours, PRN Pain , Moderate, for 30 days, # 90 tablet, 7 Refills, Acute 10/24/21 12:47:00 EST, 02/26/21 12:47:00 EDT, ER Tablet, [facility] #75589, 156, cm, 03/13/20 10:31:00 EDT, Height, 78.8, kg, ... Start Date: 02/26/21 Stop Date: 10/24/21 Status: Ordered albuterol 0.083% inhalation solution 3 mL = 2.5 mg, Inhalation, Every 6 hours, PRN for wheezing, Dx: asthma, # 100 each, 4 Refills, Maintenance, 12/01/19 12:54:00 EST, [place], [facility]/pharmacy #2476, 156, cm, 12/01/19 12:40:00 EST, Height, 79.6, kg, 03/10/19 14:10:00 EDT, Dry Weight Start Date: 12/01/19 Stop Date: 04/29/20 Status: Ordered albuterol CFC free 90 mcg/inh inhalation aerosol 2, puffs, Inhalation, Every 4 hours, PRN, # 1 each, Refills 3, Tot. Refills 3, Maintenance, 03/13/21 8:25:00 EDT, Aerosol, Route to Pharmacy Electronically, [id number], [facility] #82551, 156, cm, 03/13/21 8:16:00 E... Start Date: [...] 3 Refills, Maintenance, 03/13/21 8:26:00 EDT, Tablet, [facility] #40064, 156, cm, 03/13/21 8:16:00 EDT, Height, 78.8, [...] 16 Gm,0 Refills, Maintenance, 08/02/21 11:22:00 EDT, [place], [facility] #46372, Partial fill upon patient request if the prescription is for a sched... Start Date: 08/02/21 Status: Ordered ipratropium nasal 21 mcg/inh spray 2 sprays, Nares, Both, 2 times a day, # 30 mL, 0 Refills, Maintenance, 07/25/20 16:52:00 EDT, [place], [facility]/pharmacy #2936, 2 sprays Nares, Both 2 times a day, 156, cm, 03/13/20 10:31:00 EDT, Height, 78.8, kg, 12/20/19 10:35:00 EST, Dry Weight Start Date: 07/25/20 Status: Ordered levothyroxine 0.05 mg oral tablet 1 tablet = 50 mcg, By Mouth, Daily, # 90 tablet, 3 Refills, Maintenance, 03/13/21 8:24:00 EDT, Tablet, [facility] #01875, 156, cm, 03/13/21 8:16:00 EDT, Height, 78.8, kg, 12/20/19 10:35:00 EST, Dry Weight Start Date: 03/13/21 Stop Date: 03/08/22 Status: Ordered montelukast 10 mg oral tablet See Instructions, TAKE 1 TABLET BY MOUTH DAILY, # 90 tablet, Refills 1, Instructions Replace Required Details, [id number], 156, cm, 03/13/21 8:35:00EDT, Height, 78.8, kg, [...] Refills, Soft Stop, 08/16/21 16:24:00 EDT, Tablet, [facility]/pharmacy #2476, 156, cm, 08/16/21 15:58:00 EDT, Height, 78.8, kg, 12/20... Start Date: 08/16/21 Status: Ordered Qvar Redihaler 40 mcg/inh inhalation aerosol 1 puffs, Inhalation, 2 times a day, rinse mouth and throat after use, # 1 each, 0 Refills, Maintenance, 09/14/20 8:47:00 EST, [facility]/pharmacy #2476, 1 puffs Inhalation 2 times a [...]
--- OUTSIDE RECORDS SUMMARY | 2024-07-15 15:49 | XMS_ITS | Continuity of Care Document ---
Author Organization [facility] Address [address] [place] [address]- Care Team Providers Care Carpenter Repairer Name Role Phone Santi James MD Primary Care Physician [place] [facility] Date(s): 03/13/20 - 03/20/20 [facility] [address] [place] [address]- [facility] Encounter Diagnosis Left leg pain(Discharge Diagnosis) - 03/13/20 Attending Physician: Santi James MD Allergies, Adverse Reactions, Alerts Substance Reaction Severity Status doxycycline Hives Active nitrofurantoin Pruritus Rash Active morphine Active benzonatate Speech impediment Active Zithromax gi upset Active Percocet Active Biaxin Upset stomach Active Augmentin hives Active Levaquin Hives Active Bactrim DS Stomach cramps Active Lopid Muscle cramps Myalgia and myositis [...] [facility], form received 4Result Comment: [id number] 5Result Comment: [08/31/2018] [id number] 6Result Comment: [08/24/2015] given w/out incident 7Admin Note: done @ [facility],form received 8Result Comment: [07/31/2015] [facility] 9Admin Note: done @ [facility] 10Admin Note: vis sheet given. 11Admin Note: work 12Admin Note: given at [facility] [place] 13Admin Note: per pt, done at [facility] 14Admin Note: per pt 15Admin Note: [facility] Medications acetaminophen 650 mg oral tablet, extended release 1 tablet = 650 mg, By Mouth, Every 8 hours, PRN Pain , Moderate, for 30 days, # 90 tablet, 7 Refills, Acute 11/08/20 11:12:00 EST, 03/13/20 11:12:00 EDT, ER Tablet, [facility]/pharmacy #2476, 156, cm, 03/13/20 [...] 4 Refills, Maintenance, 12/01/19 12:54:00 EST, Solution, [facility]/pharmacy #2476, 156, cm, 12/01/19 12:40:00 EST, Height, 79.6, kg, 03/10/19 14:10:00 EDT, Dry Weight Start Date: 12/01/19 Stop Date: 04/29/20 Status: Ordered albuterol CFC free 90 mcg/inh inhalation aerosol 2, puffs, Inhalation, Every 4 hours, PRN, # 9 Gm, Refills 0, Tot. Refills 0, Maintenance, 10/28/17 14:12:34, Aerosol, Route to Pharmacy Electronically, [id number], [facility]/pharmacy #1972, Compound Start Date: [...] EDT, [facility] increase in dose, 156, cm, 12/23/19 13:03:00 EST, Height, 78.8, kg, 12/20/19 10:35:00... Start Date: 02/14/20 Stop Date: 04/14/20 Status: Ordered levothyroxine 0.05 mg oral tablet 1 tablet = 50 mcg, By Mouth, Daily, # 90 tablet, 3 Refills, Maintenance, 03/13/20 11:08:00 EDT, Tablet, [facility]/pharmacy #2476, 156, cm, 03/13/20 [...] 03/08/20 9:54:00 EDT, Route to Pharmacy Electronically, [facility]/pharmacy #2476, 156, cm, 12/23/19 [...] Status Cl inical Service Informant Left leg pain Discharge Diagnosis 03/13/20 Vital Signs Most recent to oldest [Reference Range]: 1 Height 156 cm (03/13/20 10:31 AM) Social History Social History Type Response Smoking Status Never smoker entered on: 10/12/14 Sex
--- OUTSIDE RECORDS SUMMARY | 2024-07-15 15:49 | XMS_ITS | Continuity of Care Document ---
Author Organization [facility] Address [address] [place] [address]- Care Team Providers Care Suit Maker Name Role Phone Santi James MD Primary Care Physician [facility] Date[facility]s): 06/03/24 - 07/03/24 [facility] [address] [place] [address]- Allergies, Adverse Reactions, Alerts Substance Reaction Severity [...] 6Admin Note: given at [facility] [place] 7Admin Note: per pt, done at [facility] 8Admin Note: done @ [facility], form received 9Admin Note: given at work 10Admin Note: given in the fall 11Result Comment: [id number] 12Result Comment: [08/31/2018] [id number] 13Result Comment: [08/24/2015] given w/out incident 14Admin [...] tablet, 3 Refills, Maintenance, 01/17/23 12:44:00 EDT, [facility], 156.15, cm, 11/29/22 14:40:00 EST, Height, 79.5, [...] 90 Unknown,1 Refills, Maintenance, 06/10/23 8:18:00 EDT, [facility], 90, USE 1 SPRAY IN BOTH NOSTRILS [...] 0 Refills, Maintenance, 05/20/24 13:48:00 EDT, Tablet, [facility]/pharmacy #4682, Partial fill upon patient request if the [...] 4 Refills, Maintenance, 09/02/23 11:04:00 EDT, Tablet, [facility]/pharmacy #2476, Partial fill upon patient request if the prescription is for a schedule II opioid drug., 155, cm, ... Start Date: 09/02/23 Stop Date: 11/25/24 Status: Ordered ibuprofen 800 mg oral tablet See Instructions, PLEASE SEE ATTACHED FOR DETAILED DIRECTIONS, # 90 tablet, Refills 2, Maintenance,06/25/24 16:54:00 EDT, Instructions Replace Required Details, [facility]ically[facility], 155, cm, 05/24/24 13:16:00 EDT, Height... Start Date: 06/25/24 Status: Ordered levothyroxine 0.05 mg oral tablet 1 tablet, By Mouth, Daily, # 90 tablet, 3 Refills, Maintenance, 08/12/23 15:31:00 EDT, [facility]/pharmacy#2476, 155, cm, 08/12/23 15:09:00 EDT, Height, 83.9, kg, 03/13/23 4:46:00 EDT, Dry Weight Start Date: 08/12/23 Stop Date: 08/06/24 Status: Ordered montelukast 10 mg oral tablet 1, tablet, By Mouth, Daily, # 90 tablet, Refills 3, Maintenance, 11/23/23 8:40:00 EST, Route to Pharmacy Electronically, [facility], 155, cm, 11/18/23 16:29:00 EST, Height, 83.7, [...] team information Care Team Personnel Name: Justa INNER LAYER SCRUBBER TENDER, Geni Orlando Position: [facility] Associate Professional Member Role: Primary Care Nurse Name: Talia Matute RN Position: [facility] RN Member Role: Primary Care Nurse Name: Darshan Benz RN Position: [facility] Outreach Member Role: Primary Care Nurse Name: Santi James MD Position: [facility] Physician - Primary Care Member Role: PCP Address: Address: [address] [place] [address] Adult & [place] [address]- Care Team Related Persons Name: PITER BAILEY Address: home [address] [place] [address] Name: DELMIS ADAMS Address: [place] [address] Name: RUPERT PALMER Address: [address] [place] [address] Name: DESIRAE CHAUDHARY Address: home [address] [place], [place]
--- OUTSIDE RECORDS SUMMARY | 2024-07-15 15:49 | XMS_ITS | Continuity of Care Document ---
Author Organization [facility] Address [address] [place] [address]- Care Team Providers Care Card Lacer Name Role Phone Jacob DORAN, Santi Primary Care Phys[facility] - 09/15/21 [facility] [address] [place], [place] [address] Allergies, Adverse Reactions, Alerts Substance [...] Given 1Admin Note: done @ [facility],form received 2Result Comment: [07/31/2015] [facility] 3Admin Note: done @ [facility] 4Admin Note: vis sheet given. 5Admin Note: work 6Admin Note: given at [facility] [place] 7Admin Note: per pt, done at [facility] 8Admin Note: done @ [facility], form received 9Admin Note: given at work 10Admin Note: given in the fall 11Result Comment: [id number] 12Result Comment: [08/31/2018] [id number] 13Result Comment: [08/24/2015] given w/out incident 14Admin Note: per pt 15Admin Note: [facility] Medications acetaminophen 650 mg oral tablet, extended release 1 tablet = 650 mg, By Mouth, Every 8 hours, PRN Pain , Moderate, for 30 days, # 90 tablet, 7 Refills, Acute 10/24/21 12:47:00 EST, 02/26/21 12:47:00 EDT, ER Tablet, [facility] #[id number], 156, cm, 03/13/20 10:31:00 EDT, Height, 78.8, [...] 8:25:00 EDT, Aerosol, Route to Pharmacy Electronically, [id number], [facility] #[id number], 156, cm, 03/13/21 8:16:00 E... Start Date: [...] 3 Refills, Maintenance, 03/13/21 8:26:00 EDT, Tablet, [facility] #[id number], 156, cm, 03/13/21 8:16:00 EDT, Height, 78.8, [...] 16 Gm,0 Refills, Maintenance, 08/02/21 11:22:00 EDT, [place], [facility] #[id number], Partial fill upon patient request if the prescription is for a sched... Start Date: 08/02/21 Status: Ordered ipratropium nasal 21 mcg/inh spray 2 sprays, Nares, Both, 2 times a day, # 30 mL, 0 Refills, Maintenance, 07/25/20 16:52:00 EDT, [place], [facility]/pharmacy #[id number], 2 sprays Nares, Both 2 times a day, 156, cm, 03/13/20 10:31:00 EDT, Height, 78.8, kg, 12/20/19 10:35:00 EST, Dry Weight Start Date: 07/25/20 Status: Ordered levothyroxine 0.05 mg oral tablet 1 tablet = 50 mcg, By Mouth, Daily, # 90 tablet, 3 Refills, Maintenance, 03/13/21 8:24:00 EDT, Tablet, [facility] #[id number], 156, cm, 03/13/21 8:16:00 EDT, Height, 78.8, kg, 12/20/19 10:35:00 EST, Dry Weight Start Date: 03/13/21 Stop Date: 03/08/22 Status: Ordered montelukast 10 mg oral tablet See Instructions, TAKE 1 TABLET BY MOUTH DAILY, # 90 tablet, Refills 1, Instructions Replace Required Details, Route to Pharmacy Electronically, [facility] #[id number], 156, cm, 03/13/21 8:35:00EDT, Height, 78.8, kg, [...] 9:38:00 EDT, Aerosol, Route to Pharmacy Electronically, [id number]... Start Date: 09/04/21 Status: Ordered Zithromax Z-Tramaine 250 mg oral tablet See Instructions, as directed on package labeling, # 1 pack/packet, 0 Refills, Maintenance, 08/16/21 16:24:00 EDT, [facility]/pharmacy #[id number], Partial fill upon patient request if the [...]
--- OUTSIDE RECORDS SUMMARY | 2024-07-15 15:49 | XMS_ITS | Continuity of Care Document ---
Author Organization [facility] Address [address] [place] [address]- Care Team Providers Care Industrial Robotics Mechanic Name Role Phone Jacob DORAN, Santi Primary Care Physician [facility] 10[facility]23 - 11/20/23 [facility] [address] [place], [place] [address] Allergies, Adverse Reactions, Alerts Substance Reaction Severity Status doxycycline Hives Active morphine Active Percocet Active nitrofurantoin Pruritus Rash Active predniSONE Anaphylaxis Active benzonatate Speech impediment Active Lopid Muscle cramps Myalgia and myositis unspecified Active Biaxin Upset stomach Active Topamax Skin rash Active Lipitor Myalgia unspecified Muscle cramps Active [...] Given 1Admin Note: done @ [facility],form received 2Result Comment: [07/31/2015] [facility] 3Admin Note: done @ [facility] 4Admin Note: vis sheet given. 5Admin Note: work 6Admin Note: given at [facility] in [place] 7Admin Note: per pt, done at [facility] 8Admin Note: done @ [facility], form received 9Admin Note: given at work 10Admin Note: given in the fall 11Result Comment: [id number] 12Result Comment: [08/31/2018] [id number] 13Result Comment: [08/24/2015] given w/out incident 14Admin [...] tablet, 3 Refills, Maintenance, 01/17/23 12:44:00 EDT, [facility] 71067, 156.15, cm, 11/29/22 14:40:00 EST, Height, 79.5, [...] Acute 11/28/23 16:51:00 EST, 11/18/23 16:51:00 EST, [facility]/pharmacy #[id number], Partial fill upon patient request if the prescription is for a schedule II opioid drug., 155, cm, 11/18/23... Start Date: 11/18/23 Stop Date: 11/28/23 Status: Ordered azelastine 137 mcg/inh (0.1%) nasal spray See Instructions, USE 1 SPRAY IN BOTH NOSTRILS 2 TIMES A DAY NEEDED FOR ALLERGIES, # 90 Unknown,1 Refills, Maintenance, 06/10/23 8:18:00 EDT, [facility] 84274, 90, USE 1 SPRAY IN BOTH NOSTRILS [...] Refills, Soft Stop, 11/06/23 9:46:00 EST, Tablet, [facility]/pharmacy #[id number], Partial fill upon patient request if the prescription is for a schedule II opioid drug., 155, cm, 11/06/23 9:08:00 EST, Height, 83.7... Start Date: 11/06/23 Status: Ordered EpiPen 2-Tramaine 0.3 mg injectable kit = 0.3 mg, Intramuscular, Once, PRN Anaphylactic Reaction, may repeat if necessary, # 1 each, 11 Refills, Soft Stop, 03/14/23 15:31:00 EDT, [facility]/pharmacy #[id number], Partial fill upon patient request if theprescription is for a schedule II opioid drug., 155... Start Date: 03/14/23 Status: Ordered fexofenadine 180 mg oral tablet 1 tablet = 180 mg, By Mouth, Daily, PRN for allergy symptoms, # 90 tablet, 4 Refills, Maintenance, 09/02/23 11:04:00 EDT, Tablet, [facility]/pharmacy #[id number], Partial fill upon [...] team information Care Team Personnel Name: Justa SUPERVISOR MONEY ROOM, Geni Orlando Position: [facility] Associate Professional Member Role: Primary Care Nurse Address: Address: [address] [facility] [place] [address]- Name: Talia Matute RN Position: [facility] RN Member Role: Primary Care Nurse Name: Santi James MD Position: [facility] Physician - Primary Care Member Role: PCP Address: Address: [address] [place] [address] Adult & [place] [address]- Care Team Related Persons Name: PITER BAILEY Address: home [address] [place] [address] Name: DELMIS ADAMS Address: [place] [address] Name: RUPERT PALMER Address: home [address] [place], [place] Name: DESIRAE CHAUDHARY Address: home [address] [place], [place]
--- OUTSIDE RECORDS SUMMARY | 2024-07-15 15:49 | XMS_ITS | Continuity of Care Document ---
Author Organization [facility] Address [address] [place] [address]- Care Team Providers Care Fox Raiser Name Role Phone Jacob DORAN, Santi Primary Care Physician [facility] 03/04[facility]22 - 04/03/22 [facility] [address] [place], [place] [address] Allergies, Adverse Reactions, Alerts Substance Reaction [...] [facility] 3Admin Note: done @ [facility] 4Admin Note: vis sheet given. 5Admin Note: work 6Admin Note: given at [facility] [place] 7Admin Note: per pt, done at [facility] 8Admin Note: done @ [facility], form received 9Admin Note: given at work 10Admin Note: given in the fall 11Result Comment: [id number] 12Result Comment: [08/31/2018] [id number] 13Result Comment: [08/24/2015] given w/out incident 14Admin Note: per pt 15Admin Note: [facility] Medications Albuterol (Eqv-ProAir HFA) 90 mcg/inh inhalation aerosol 2 puffs, Inhalation, Every 6 hours, PRN Wheezing/Shortness of Breath, # 6.7 Gm, 11 Refills, Maintenance, 02/26/22 9:18:00 EDT, [facility]/pharmacy #[id number], Partial fill upon patient request if the [...] each, 4 Refills, Maintenance, 02/07/22 12:08:00 EDT, [place], [facility]/pharmacy #[id number], Partial fill upon patient request if the prescription is for a schedule II opioid drug., 1 sprays Nares... Start Date: 02/07/22 Stop Date: 07/07/22 Status: Ordered cetirizine 10 mg oral tablet 1 tablet, By Mouth, Daily, # 90 tablet, 3 Refills, [facility], 156, cm, 03/18/22 8:26:00 EDT, Height Start [...] 16 Gm,6 Refills, Maintenance, 11/06/21 10:21:00 EST, [place], [facility]acy [facility]76, Partial fill upon patientrequest if the prescription is for a schedule II op... Start Date: 11/06/21 Status: Ordered levothyroxine 0.05 mg oral tablet See Instructions, TAKE 1 TABLET BY MOUTH EVERY DAY, # 90 tablet, 1 Refills, [facility] 317[facility], 156, cm, 02/07/22 11:31:00 EDT, Height Start Date: 02/19/22 Status: Ordered loratadine 10 mg oral tablet 10 mg, 1, tablet, By Mouth, Daily, # 30 tablet, Refills 11, Tot. Refills 11, Maintenance, 02/26/22 9:18:00 EDT, Route to Pharmacy Electronically, [facility]/pharmacy #[id number], Partial fill upon patient requestif the prescription [...] 02/26/22 9:18:00 EDT, Route to Pharmacy Electronically, [facility]/pharmacy #[id number], Partial fill upon patient requestif the prescription is for a schedule II opioid lauro... Start Date: 02/26/22 Status: Ordered Symbicort 160mcg/4.5mcg Inhaler 2, puffs, Inhalation, 2 times a day, in the morning and the evening use with spacer chamber rinse mouth and throat after use, # 54 Gm, Refills 12, Tot. Refills 12, Maintenance, 02/26/22 9:18:00 EDT, Aerosol, Route to Pharmacy Electronically, [id number]... Start Date: 02/26/22 Status: Ordered Vitamin D3 [...]
--- OUTSIDE RECORDS SUMMARY | 2024-07-15 15:50 | XMS_ITS | Continuity of Care Document ---
Author Organization [facility] Address [address] [place] [address]- Care Team Providers Care Paper Slitter Name Role Phone Santi Jaems MD Primary Care Physician [facility]): 07/21/23 - 08/20/23 [facility] [address] [place], [place] [address] Allergies, Adverse Reactions, Alerts [...] given at [facility] [place] 7Admin Note: per pt, done at [facility] 8Admin Note: done @ [facility], form received 9Admin Note: given at work 10Admin Note: given in the fall 11Result Comment: [id number] 12Result Comment: [08/31/2018] [id number] 13Result Comment: [08/24/2015] given w/out incident 14Admin [...] tablet, 3 Refills, Maintenance, 01/17/23 12:44:00 EDT, [facility] 12[facility], 156.15, cm, 11/29/22 14:40:00 EST, Height, 79.5, [...] 90 Unknown,1 Refills, Maintenance, 06/10/23 8:18:00 EDT, [facility] 79857, 90, USE 1 SPRAY IN BOTH NOSTRILS 2 TIMES A DAY NEEDED FOR ALLERGIES, 155, cm, ... Start Date: 06/10/23 Status: Ordered CeleBREX 100 mg oral capsule 1 capsule = 100 mg, By Mouth, 2 times a day, PRN for pain, # 60 capsule, 4 Refills, Maintenance, 08/12/23 15:29:00 EDT, [place], [facility]/pharmacy #7606, replaces ibuprofen, 155, cm, 08/12/23 15:09:00 EDT, [...] Soft Stop, 03/14/23 15:31:00 EDT, [facility]/pharmacy #[id number], Partial fill upon patient request if theprescription is for a schedule II opioid drug., 155... Start Date: 03/14/23 Status: Ordered ergocalciferol 98125 iu oral capsule 50,000 International_Units, 1, capsule, By Mouth, Every week, # 12 capsule, Refills 0, Tot. Refills0, Maintenance, 06/12/23 7:24:00 EDT, Route to Pharmacy Electronically, [facility]/pharmacy #[id number], Partialfill upon patient request if the [...] Refills, Maintenance, 08/12/23 15:31:00 EDT, [facility]/pharmacy#[id number], 155, cm, 08/12/23 15:09:00 EDT, Height, 83.9, [...] Personnel Name: Justa HARRIS, Geni Orlando Position: [facility] Associate Professional Member Role: Primary Care Nurse Address: Address: [address] [place] [address] [address]- Name: Juju QIU, Talia Position: [facility] RN Member Role: Primary Care Nurse Name: Santi James MD Position: [facility] Physician - Primary Care Member Role: PCP Address: Address: [address] [place] [address] Adult & [place] [address]- Care Team Related Persons Name: PITER BAILEY Address: home [address] [place] [address] Name: DELMIS ADAMS Address: [place] [address] Name: RUPERT PALMER Address: [address] [place] [address] Name: DESIRAE CHAUDHARY Address: home [address] [place], [place]
--- OUTSIDE RECORDS SUMMARY | 2024-07-15 15:50 | XMS_ITS | Continuity of Care Document ---
Author Organization [facility] Address [address] [place] [address]- Care Team Providers Care Refractive Surgeon Name Role Phone Jacob DORAN, Santi Primary Care Physician [facility]): 03/12/22 - 04/11/22 [facility] [address] [place], [place] [address] Allergies, Adverse Reactions, Alerts Substance [...] [facility],form received 2Result Comment: [07/31/2015] [facility] 3Admin Note: done @ [facility] 4Admin Note: vis sheet given. 5Admin Note: work 6Admin Note: given at [facility] in [place] 7Admin Note: per pt, done at [facility] 8Admin Note: done @ [facility], form received 9Admin Note: given at work 10Admin Note: given in the fall 11Result Comment: [id number] 12Result Comment: [08/31/2018] [id number] 13Result Comment: [08/24/2015] given w/out incident 14Admin Note: per pt 15Admin Note: [facility] Medications acetaminophen 650 mg oral tablet, extended release 1 tablet, By Mouth, Every 8 hours, PRN NEEDED FOR PAIN, # 90 tablet, 3 Refills, [facility] 25571,156, cm, 04/04/22 7:36:00 EDT, Height, 78.9, kg, 04/04/22 7:36:00 EDT, Dry Weight Start Date: 04/08/22 Status: Ordered Albuterol (Eqv-ProAir HFA) 90 mcg/inh inhalation aerosol 2 puffs, Inhalation, Every 6 hours, PRN Wheezing/Shortness of Breath, # 6.7 Gm, 11 Refills, Maintenance, 02/26/22 9:18:00 EDT, [facility]/pharmacy #2476, Partial fill upon patient [...] each, 4 Refills, Maintenance, 02/07/22 12:08:00 EDT, [place], [facility]/pharmacy #[id number], Partial fill upon patient request if the prescription is for a schedule II opioid drug., 1 sprays Nares... Start Date: 02/07/22 Stop Date: 07/07/22 Status: Ordered cetirizine 10 mg oral tablet 1 tablet, By Mouth, Daily, # 90 tablet, 3 Refills, [facility] 70912, 156, cm, 03/18/22 8:26:00 EDT, Height Start [...] Soft Stop, 04/08/22 13:39:00 EDT, Tablet,[facility]/pharmacy #[id number], Partial fill upon patient request if the prescription is for a schedule II opioid drug., 156, cm, 04/04/22 7:36:00 EDT, Height, 78.... Start Date: 04/08/22 Status: Ordered Flonase 50 mcg/inh nasal spray 1 sprays, Nares, Both, 2 times a day, in each nostril X 5 Days, and then daily thereafter, # 16 Gm,6 Refills, Maintenance, 11/06/21 10:21:00 EST, [place], [facility]/pharmacy #[id number], Partial fill upon patientrequest if the prescription is for a schedule II op... Start Date: 11/06/21 Status: Ordered levothyroxine 0.05 mg oral tablet See Instructions, TAKE 1 TABLET BY MOUTH EVERY DAY, # 90 tablet, 1 Refills, [facility] 43619, 156, cm, 02/07/22 11:31:00 EDT, Height Start Date: 02/19/22 Status: Ordered loratadine 10 mg oral tablet 10 mg, 1, tablet, By Mouth, Daily, # 30 tablet, Refills 11, Tot. Refills 11, Maintenance, 02/26/22 9:18:00 EDT, Route to Pharmacy Electronically, [facility]/pharmacy #[id number], Partial fill upon patient [...] Pharmacy Electronically, [facility]/pharmacy #[id number], Partial fill upon patient [...] 9:18:00 EDT, Aerosol, Route to Pharmacy Electronically, [id number]... Start Date: 02/26/22 Status: Ordered Vitamin D3 [...]
--- OUTSIDE RECORDS SUMMARY | 2024-07-15 15:50 | XMS_ITS | Continuity of Care Document ---
Author Organization [facility] Address [address] [place] [address]- Care Team Providers Care Operations Boardman Name Role Phone Santi James MD Primary Care Physician [facility] 10[facility]18[facility]22 - 11/17/22 [facility] [address] [place], [place] [address] Allergies, Adverse Reactions, Alerts Substance Reaction Severity Status doxycycline Hives Active nitrofurantoin Pruritus Rash Active morphine Active Lopid Muscle cramps Myalgia and myositis unspecified Active Percocet Active benzonatate Speech impediment Active Biaxin Upset [...] (Td) 11/03/99 Given 1Admin Note: done @ [facility],form received 2Result Comment: [07/31/2015] [facility] 3Admin Note: done @ [facility] 4Admin Note: vis sheet given. 5Admin Note: work 6Admin Note: given at [facility] in [place] 7Admin Note: per pt, done at [facility] 8Admin Note: done @ [facility], form received 9Admin Note: given at work 10Admin Note: given in the fall 11Result Comment: [id number] 12Result Comment: [08/31/2018] [id number] 13Result Comment: [08/24/2015] given w/out incident 14Admin Note: per pt 15Admin Note: [facility] Medications acetaminophen 650 mg oral tablet, extended release 1 tablet, By Mouth, Every 8 hours, PRN NEEDED FOR PAIN, # 90 tablet, 3 Refills, [facility] 34650,156, cm, 04/04/22 7:36:00 EDT, Height, 78.9, kg, 04/04/22 7:36:00 EDT, Dry Weight Start Date: 04/08/22 Status: Ordered Albuterol (Eqv-ProAir HFA) 90 mcg/inh inhalation aerosol 2 puffs, Inhalation, Every 6 hours, PRN Wheezing/Shortness of Breath, # 6.7 Gm, 11 Refills, Maintenance, 08/29/22 9:07:00 EDT, [facility]/pharmacy #[id number], Partial [...] each, 6 Refills, Maintenance, 11/05/22 13:48:00 EST, [place], [facility]/pharmacy #[id number], Partial fill upon patient request if the prescription is for a schedule II opioid drug., 1 sprays Nares... Start Date: 11/05/22 Stop Date: 06/03/23 Status: Ordered cetirizine 10 mg oral tablet 1 tablet, By Mouth, Daily, # 90 tablet, 3 Refills, [facility] 70515, 156, cm, 03/18/22 8:26:00 EDT, Height Start [...] Gm, 11 Refills, 08/29/22 9:07:00 EDT, [facility]/pharmacy #2476, USE 1 SPRAY IN EACH NOSTRL 2 TIMES A DAYX 5 DAYS, AND THEN DAILY THEREAFTER, 156.15, cm, 10... Start Date: 08/29/22 Status: Ordered levothyroxine 0.05 mg oral tablet See Instructions, TAKE 1 TABLET BY MOUTH EVERY DAY, # 90 tablet, 1 Refills, 09/01/22 19:54:00 EDT, [facility]/pharmacy #2476, 156.15, cm, 08/29/22 8:44:00 EDT, Height, 79.5, kg, 06/06/22 11:17:00 EDT, Dry Weight Start Date: 09/01/22 Status: Ordered loratadine 10 mg oral tablet 10 mg, 1, tablet, By Mouth, Daily, # 30 tablet, Refills 11, Tot. Refills 11, Maintenance, 08/29/22 9:07:00 EDT, Route to Pharmacy Electronically, [facility]/pharmacy #[id number], Partial fill upon patient requestif the prescription is for a schedule II opioid lauro... Start Date: 08/29/22 Status: Ordered meloxicam 15 mg oral tablet 1 tablet = 15 mg, By Mouth, Daily, # 30 tablet, 2 Refills, Maintenance, 10/08/22 9:48:00 EST, Tablet, [facility]/pharmacy #[id number], replaces diclofenac, 156.15, cm, 08/29/22 8:44:00 [...] 9:07:00 EDT, Route to Pharmacy Electronically, [facility]/pharmacy #[id number], Partial fill upon patient requestif the prescription is for a schedule II opioid lauor... Start Date: 08/29/22 Status: Ordered Symbicort 160mcg/4.5mcg Inhaler 2, puffs, Inhalation, 2 times a day, in the morning and the evening use with spacer chamber rinse mouth and throat after use, # 1 each, Refills 5, Tot. Refills 5, Maintenance, 10/17/22 10:03:00 EST, Aerosol, Route to Pharmacy Electronically, [id number]... Start Date: 10/17/22 Status: Ordered Vitamin D3 [...] Justa HARRIS, Geni Orlando Position: [facility] Associate Professional Member Role: Primary Care Nurse Address: Address: [address] [place] [address]- Name: Santi James MD Position: [facility] Primary Care Physician Member Role: PCP Address: Address: [address] [place], [place] [address] Care Team Related Persons Name: PITER BAILEY Address: home [address] [place] [address] Name: DELMIS ADAMS Address: home [address] [place], [place] Name: RUPERT PALMER Address: [address] [place] [address] Name: DESIRAE CHAUDHARY Address: home [address] [place], [place]
--- OUTSIDE RECORDS SUMMARY | 2024-07-15 15:50 | XMS_ITS | Continuity of Care Document ---
Author Organization [facility] Address [address] [place] [address]- Care Team Providers Care Tube Coremaker Name Role Phone Jacob DORAN, Santi Primary Care Physician [facility]): [facility] - 10/04/22 [facility] [address] [place] [address] Allergies, Adverse Reactions, Alerts Substance Reaction [...] 6Admin Note: given at [facility] [place] 7Admin Note: per pt, done at [facility] 8Admin Note: done @ [facility], form received 9Admin Note: given at work 10Admin Note: given in the fall 11Result Comment: [id number] 12Result Comment: [08/31/2018] [id number] 13Result Comment: [08/24/2015] given w/out incident 14Admin Note: per pt 15Admin Note: [facility] Medications acetaminophen 650 mg oral tablet, extended release 1 tablet, By Mouth, Every 8 hours, PRN NEEDED FOR PAIN, # 90 tablet, 3 Refills, [facility]ORE 95096,156, cm, 04/04/22 7:36:00 EDT, Height, 78.9, kg, 04/04/22 7:36:00 EDT, Dry Weight Start Date: 04/08/22 Status: Ordered Albuterol (Eqv-ProAir HFA) 90 mcg/inh inhalation aerosol 2 puffs, Inhalation, Every 6 hours, PRN Wheezing/Shortness of Breath, # 6.7 Gm, 11 Refills, Maintenance, 08/29/22 9:07:00 EDT, [facility]/pharmacy #2476, Partial [...] each, 4 Refills, Maintenance, 02/07/22 12:08:00 EDT, [place], [facility]/pharmacy #2476, Partial fill upon patient request if the prescription is for a schedule II opioid drug., 1 sprays Nares... Start Date: 02/07/22 Stop Date: 07/07/22 Status: Ordered cetirizine 10 mg oral tablet 1 tablet, By Mouth, Daily, # 90 tablet, 3 Refills, [facility] 21119, 156, cm, 03/18/22 8:26:00 EDT, Height Start [...] EDT, Supply Start Date: 04/13/21 Status: Ordered diclofenac sodium 75 mg oral delayed release tablet 1 tablet = 75 mg, By Mouth, 2 times a day, PRN as needed for arthritis, with food, # 60 tablet, 2 Refills, Maintenance, 09/30/22 13:51:00 EST, EC Tablet, [facility]/pharmacy #2476, Partial fill upon patientrequest if the prescription is for a schedule II op... Start Date: 09/30/22 Stop Date: 12/29/22 Status: Ordered fluticasone 50 mcg/inh nasal spray See Instructions, USE 1 SPRAY IN EACH NOSTRL 2 TIMES A DAY X 5 DAYS, AND THEN DAILY THEREAFTER, # 16 Gm, 11 Refills, 08/29/22 9:07:00 EDT, [facility]/pharmacy #2476, USE 1 SPRAY IN EACH NOSTRL 2 TIMES A DAYX 5 DAYS, AND THEN DAILY THEREAFTER, 156.15, cm, 10... Start Date: 08/29/22 Status: Ordered levothyroxine 0.05 mg oral tablet See Instructions, TAKE 1 TABLET BY MOUTH EVERY DAY, # 90 tablet, 1 Refills, 09/01/22 19:54:00 EDT, [facility]/pharmacy #2476, 156.15, cm, 08/29/22 8:44:00 EDT, Height, 79.5, kg, 06/06/22 11:17:00 EDT, Dry Weight Start Date: 09/01/22 Status: Ordered loratadine 10 mg oral tablet 10 mg, 1, tablet, By Mouth, Daily, # 30 tablet, Refills 11, Tot. Refills 11, Maintenance, 08/29/22 9:07:00 EDT, Route to Pharmacy Electronically, [facility]/pharmacy #2476, Partial fill upon patient requestif the [...] to Pharmacy Electronically, [facility]/pharmacy #5921, Partial fill upon patient requestif the prescription [...] pack/packet, 0 Refills, Maintenance, 09/23/22 9:15:00 EST, [facility]/pharmacy #9481, Partial fill upon patient request if the [...] Team Personnel Name: Geni Marr NP Position: [facility] Associate Professional Member Role: Primary Care Nurse Address: Address: [address] [place] [address]- Name: Santi James MD Position: [facility] Primary Care Physician Member Role: PCP Address: Address: [address] [place] [address]- Care Team Related Persons Name: PITER BAILEY Address: home [address] [place] [address] Name: DELMIS ADAMS Address: [place] [address] Name: RUPERT PALMER Address: home [address] [place] [address] Name: DESIRAE CHAUDHARY Address: home [address] [place] [address]
--- OUTSIDE RECORDS SUMMARY | 2024-07-15 15:50 | XMS_ITS | Continuity of Care Document ---
Author Organization [facility] Address [address] [place] [address]- Care Team Providers Care Financial Processing Clerk Name Role Phone Jacob DORAN, Santi Primary Care Physician [facility]): 12/22/23 - 01/21/24 [facility] [address] [place], [place] [address] Allergies, Adverse Reactions, [...] 6Admin Note: given at [facility] [place] 7Admin Note: per pt, done at [facility] 8Admin Note: done @ [facility], form received 9Admin Note: given at work 10Admin Note: given in the fall 11Result Comment: [id number] 12Result Comment: [08/31/2018] [id number] 13Result Comment: [08/24/2015] given w/out incident 14Admin [...] tablet, 3 Refills, Maintenance, 01/17/23 12:44:00 EDT, [facility] 01815, 156.15, cm, 11/29/22 14:40:00 EST, Height, 79.5, [...] 90 Unknown,1 Refills, Maintenance, 06/10/23 8:18:00 EDT, [facility] STORE 46388, 90, USE 1 SPRAY IN BOTH NOSTRILS [...] Refills, Soft Stop, 11/06/23 9:46:00 EST, Tablet, [facility]/pharmacy #1996, Partial fill upon patient request if the prescription is for a schedule II opioid drug., 155, cm, 11/06/23 9:08:00 EST, Height, 83.7... Start Date: 11/06/23 Status: Ordered EpiPen 2-Tramaine 0.3 mg injectable kit = 0.3 mg, Intramuscular, Once, PRN Anaphylactic Reaction, may repeat if necessary, # 1 each, 11 Refills, Soft Stop, 03/14/23 15:31:00 EDT, [facility]/pharmacy #2476, Partial fill upon patient request if theprescription is for a schedule II opioid drug., 155... Start Date: 03/14/23 Status: Ordered fexofenadine 180 mg oral tablet 1 tablet = 180 mg, By Mouth, Daily, PRN for allergy symptoms, # 90 tablet, 4 Refills, Maintenance, 09/02/23 11:04:00 EDT, Tablet, [facility]/pharmacy #2476, Partial fill [...] Refills, Soft Stop, 12/22/23 13:26:00 EST, Tablet, [facility]/pharmacy #2476, Partial fill upon patient request if the prescription is for a schedule II opioid... Start Date: 12/22/23 Status: Ordered ibuprofen 800 mg oral tablet 1, tablet, By Mouth, 3 times a day, X30 DAYS, STOP ASPIRIN WHILE TAKING THIS., # 90 tablet, Refills1, Maintenance, 12/04/23 7:25:00 EST, Route to Pharmacy Electronically, [facility] STORE 93873, 155, cm, 11/18/23 16:29:00 EST, Height, 83.7, kg, 11/06/23 9:0... Start Date: 12/04/23 Status: Ordered levothyroxine 0.05 mg oral tablet 1 tablet, By Mouth, Daily, # 90 tablet, 3 Refills, Maintenance, 08/12/23 15:31:00 EDT, [facility]/pharmacy#2476, 155, cm, 08/12/23 15:09:00 EDT, Height, 83.9, kg, 03/13/23 4:46:00 EDT, Dry Weight Start Date: 08/12/23 Stop Date: 08/06/24 Status: Ordered montelukast 10 mg oral tablet 1, tablet, By Mouth, Daily, # 90 tablet, Refills 3, Maintenance, 11/23/23 8:40:00 EST, Route to Pharmacy Electronically, [facility] STORE 32406, 155, cm, 11/18/23 16:29:00 EST, Height, 83.7, [...] 4 Refills, Maintenance, 03/28/23 13:04:00 EDT, Aerosol, [facility]/pharmacy #2476, replaced Proventil that is not available, 155, cm, 03/13/23 11:02:00 EDT, Height, 83.9, kg, 03/13/23 4:46:00 EDT... Start Date: 03/28/23 Stop Date: 08/25/23 Status: Ordered Zetia 10 mg oral tablet 1 tablet = 10 mg, By Mouth, Daily, # 30 tablet, 1 Refills, Maintenance, 10/28/23 10:28:00 EST, Tablet, [facility]/pharmacy #2476, Partial fill [...] Role: Primary Care Nurse Address: Address: [address] [place] [address]- Name: Talia Matute RN Position: [facility] RN Member Role: Primary Care Nurse Name: Darshan Benz RN Position: [facility] Outreach Member Role: Primary Care Nurse Name: Santi James MD Position: [facility] Physician - Primary Care Member Role: PCP Address: Address: [address] [place] [address] Adult & [place] [address]- Care Team Related Persons Name: PITER BAILEY Address: home [address] [place] [address] Name: DELMIS ADAMS Address: home [place], [place] Name: RUPERT PALMER Address: home [address] [place], [place] Name: DESIRAE CHAUDHARY Address: home [address] [place], [place]
--- OUTSIDE RECORDS SUMMARY | 2024-07-15 15:50 | XMS_ITS | Continuity of Care Document ---
Author Organization [facility] Address [address] [place] [address]- Care Team Providers Care Senior Ui Software Engineer Name Role Phone Santi James MD Primary Care Physician [facility]): 06[facility]23 - 06/12/23 [facility] [address] [place], [place] [address] Attending Physician: Not on Staff, Attending MD Allergies, Adverse Reactions, Alerts Substance Reaction Severity Status morphine Active Percocet Active Biaxin Upset stomach Active doxycycline Hives Active nitrofurantoin Pruritus Rash Active predniSONE Anaphylaxis Active benzonatate Speech impediment Active Lopid Muscle cramps Myalgia and myositis unspecified Active Topamax Skin rash Active Lipitor Myalgia [...] Given 1Admin Note: done @ [facility],form received 2Result Comment: [07/31/2015] [facility] 3Admin Note: done @ [facility] 4Admin Note: vis sheet given. 5Admin Note: work 6Admin Note: given at [facility] [place] 7Admin Note: per pt, done at [facility] 8Admin Note: done @ [facility], form received 9Admin Note: given at work 10Admin Note: given in the fall 11Result Comment: [id number] 12Result Comment: [08/31/2018] [id number] 13Result Comment: [08/24/2015] given w/out incident 14Admin Note: per pt 15Admin Note: [facility] Medications acetaminophen 650 mg oral tablet, extended release 1 tablet, By Mouth, Every 8 hours, PRN NEEDED FOR PAIN, # 90 tablet, 3 Refills, Maintenance, 01/17/23 12:44:00 EDT, [facility] STORE 73194, 156.15, cm, 11/29/22 14:40:00 EST, Height, 79.5, [...] 90 Unknown,1 Refills, Maintenance, 06/10/23 8:18:00 EDT, [facility] STORE 90939, 90, USE 1 SPRAY IN BOTH NOSTRILS [...] 11 Refills, Soft Stop, 03/14/23 15:31:00 EDT, [facility]/pharmacy #2476, Partial fill upon patient request if theprescription is for a schedule II opioid drug., 155... Start Date: 03/14/23 Status: Ordered ergocalciferol 00028 iu oral capsule 50,000 International_Units, 1, capsule, By Mouth, Every week, # 12 capsule, Refills 0, Tot. Refills0, Maintenance, 06/12/23 7:24:00 EDT, Route to Pharmacy Electronically, [facility]/pharmacy #2476, Partialfill upon patient request [...] tablet, 1 Refills, Maintenance, 03/01/23 14:21:00 EDT, [facility] STORE 78257, 156.15, cm, 11/29/22 14:40:00 EST, Height, 79.5, [...] 4 Refills, Maintenance, 03/28/23 13:04:00 EDT, Aerosol, [facility]/pharmacy #3816, replaced Proventil that is not available, 155, [...] Member Role: Primary Care Nurse Address: Address: [address] [place] [address]- [place] Name: Talia Matute RN Position: [facility] RN Member Role: Primary Care Nurse Name: Santi James MD Position: [facility] Physician - Primary Care Member Role: PCP Address: Address: [address] [place] [address] Adult & [place] [address]- Care Team Related Persons Name: PITER BAILEY Address: home [address] [place] [address] Name: DELMIS ADAMS Address: home [place], [place] Name: RUPERT PALMER Address: home [address] [place], [place] Name: DESIRAE CHAUDHARY Address: home [address] [place], [place]
--- OUTSIDE RECORDS SUMMARY | 2024-07-15 15:50 | XMS_ITS | Continuity of Care Document ---
Author Organization [facility] Address [address] [place] [address]- Care Team Providers Care Rodding Machine Tender Name Role Phone Santi James MD Primary Care Physician [facility]): 11/14/23 - 12/14/23 [facility] [address] [place], [place] [address] Allergies, Adverse Reactions, Alerts [...] given at [facility] [place] 7Admin Note: per pt, done at [facility] 8Admin Note: done @ [facility], form received 9Admin Note: given at work 10Admin Note: given in the fall 11Result Comment: [id number] 12Result Comment: [08/31/2018] [id number] 13Result Comment: [08/24/2015] given w/out incident 14Admin [...] tablet, 3 Refills, Maintenance, 01/17/23 12:44:00 EDT, [email or web address] ST[facility] 53664, 156.15, cm, 11/29/22 14:40:00 EST, Height, 79.5, [...] 90 Unknown,1 Refills, Maintenance, 06/10/23 8:18:00 EDT, [email or web address] STORE 55354, 90, USE 1 SPRAY IN BOTH NOSTRILS [...] Soft Stop, 11/06/23 9:46:00 EST, Tablet, [facility]/pharmacy #3527, Partial fill upon patient request if the prescription is for a schedule II opioid drug., 155, cm, 11/06/23 9:08:00 EST, Height, 83.7... Start Date: 11/06/23 Status: Ordered EpiPen 2-Tramaine 0.3 mg injectable kit = 0.3 mg, Intramuscular, Once, PRN Anaphylactic Reaction, may repeat if necessary, # 1 each, 11 Refills, Soft Stop, 03/14/23 15:31:00 EDT, [facility]/pharmacy #2476, Partial fill upon patient request if theprescription is for a schedule II opioid drug., 155... Start Date: 03/14/23 Status: Ordered fexofenadine 180 mg oral tablet 1 tablet = 180 mg, By Mouth, Daily, PRN for allergy symptoms, # 90 tablet, 4 Refills, Maintenance, 09/02/23 11:04:00 EDT, Tablet, [facility]/pharmacy #2476, Partial fill upon patient request if the prescription is for a schedule II opioid drug., 155, cm, ... Start Date: 09/02/23 Stop Date: 11/25/24 Status: Ordered fluconazole 150 mg oral tablet 1 tablet = 150 mg, By Mouth, Once, repeat dose if still having symptoms in 72 hours, # 2 tablet, 0 Refills, Soft Stop, 11/28/23 12:38:00 EST, Tablet, [facility]/pharmacy #2476, Partial fill upon patient request if the prescription is for a schedule II opioid... Start Date: 11/28/23 Status: Ordered ibuprofen 800 mg oral tablet 1, tablet, By Mouth, 3 times a day, X30 DAYS, STOP ASPIRIN WHILE TAKING THIS., # 90 tablet, Refills1, Maintenance, 12/04/23 7:25:00 EST, Route to Pharmacy Electronically, [facility] STORE 21074, 155, cm, 11/18/23 16:29:00 EST, Height, 83.7, kg, 11/06/23 9:0... Start Date: 12/04/23 Status: Ordered levothyroxine 0.05 mg oral tablet 1 tablet, By Mouth, Daily, # 90 tablet, 3 Refills, Maintenance, 08/12/23 15:31:00 EDT, [facility]/pharmacy#2476, 155, cm, 08/12/23 15:09:00 EDT, Height, 83.9, kg, 03/13/23 4:46:00 EDT, Dry Weight Start Date: 08/12/23 Stop Date: 08/06/24 Status: Ordered montelukast 10 mg oral tablet 1, tablet, By Mouth, Daily, # 90 tablet, Refills 3, Maintenance, 11/23/23 8:40:00 EST, Route to Pharmacy Electronically, [facility] STORE 60130, 155, cm, 11/18/23 16:29:00 EST, Height, 83.7, [...] Refills, Maintenance, 03/28/23 13:04:00 EDT, Aerosol, [facility]/pharmacy #2476, replaced Proventil that is not available, 155, cm, 03/13/23 11:02:00 EDT, Height, 83.9, kg, 03/13/23 4:46:00 EDT... Start Date: 03/28/23 Stop Date: 08/25/23 Status: Ordered Zetia 10 mg oral tablet 1 tablet = 10 mg, By Mouth, Daily, # 30 tablet, 1 Refills, Maintenance, 10/28/23 10:28:00 EST, Tablet, [facility]/pharmacy #2476, Partial fill upon patient [...] Role: Primary Care Nurse Address: Address: [address] [place] [address]- Name: Talia Matute RN Position: [facility] RN Member Role: Primary Care Nurse Name: Santi James MD Position: [facility] Physician - Primary Care Member Role: PCP Address: Address: [address] [place] [address] Adult & [place] [address]- Care Team Related Persons Name: PITER BAILEY Address: home [address] [place] [address] Name: DELMIS ADAMS Address: home [place], [place] Name: RUPERT PALMER Address: home [address] [place], [place] Name: DESIRAE CHAUDHARY Address: home [address] [place], [place]
--- OUTSIDE RECORDS SUMMARY | 2024-07-15 15:50 | XMS_ITS | Continuity of Care Document ---
Author Organization [facility] Address [address] [place] [address]- Care Team Providers Care Metal Lather Name Role Phone Santi James MD Primary Care Physician [facility] 09[facility]20 - 10/13/20 [facility] [address] [place], [place] [address] Allergies, Adverse [...] in the fall 3Admin Note: done @ [facility], form received 4Result Comment: [id number] 5Result Comment: [08/31/2018] [id number] 6Result Comment: [08/24/2015] given w/out incident 7Admin Note: done @ [facility],form received 8Result Comment: [07/31/2015] [facility] 9Admin Note: done @ [facility] 10Admin Note: vis sheet given. 11Admin Note: work 12Admin Note: given at [facility] [place] 13Admin Note: per pt, done at [facility] [...] 10/28/17 14:12:34, Aerosol, Route to Pharmacy Electronically, [id number], [facility]/pharmacy #1972, Compound Start Date: [...] 5 Refills, Maintenance, 10/10/20 12:10:00 EST, Tablet, [facility]/pharmacy #2476, 156, cm, [...] 10/05/20 15:45:00 EST, Route to Pharmacy Electronically, [facility] STORE 09053, 156, cm, 03/13/20 10:31:00 EDT, Height, 78.8, kg, 12/20/19 10:35:00 EST, Dry Weight Start Date: 10/05/20 Status: Ordered ipratropium nasal 21 mcg/inh spray 2 sprays, Nares, Both, 2 times a day, # 30 mL, 0 Refills, Maintenance, 07/25/20 16:52:00 EDT, [place], [facility]/pharmacy #2476, 2 sprays Nares, Both 2 times a day, 156, cm, 03/13/20 10:31:00 EDT, Height, 78.8, kg, 12/20/19 10:35:00 EST, Dry Weight Start Date: 07/25/20 Status: Ordered levothyroxine 0.05 mg oral tablet 1 tablet = 50 mcg, By Mouth, Daily, # 90 tablet, 3 Refills, Maintenance, 03/13/20 11:08:00 EDT, [facility], cm, 03/13/20 10:31:00 EDT, Height, 78.8, kg, 12/20/19 10:35:00 EST, Dry Weight Start Date: 03/13/20 Stop Date: 03/08/21 Status: Ordered montelukast 10 mg oral tablet 1, tablet, By Mouth, Daily, # 90 tablet, Refills 2, Tot. Refills 0, Maintenance, 10/05/20 15:45:00 EST, Route to Pharmacy Electronically, [facility] STORE 13613, 156, cm, 03/13/20 10:31:00 EDT, Height, 78.8, [...] Refills, Soft Stop, 09/14/20 8:46:00 EST, Tablet, [facility]/pharmacy #2476, 156,cm, 03/13/20 10:31:00 EDT, Height, 78.8, [...]
--- OUTSIDE RECORDS SUMMARY | 2024-07-15 15:50 | XMS_ITS | Continuity of Care Document ---
Author Organization [facility] Address [address] [place] [address]- Care Team Providers Care Leave Coordinator Name Role Phone Santi James MD Primary Care Physician [facility] 09/30/23 - 10/30/23 [facility] [address] [place], [place] [address] Allergies, Adverse Reactions, Alerts Substance [...] 6Admin Note: given at [facility] [place] 7Admin Note: per pt, done at [facility] 8Admin Note: done @ [facility], form received 9Admin Note: given at work 10Admin Note: given in the fall 11Result Comment: [id number] 12Result Comment: [08/31/2018] [id number] 13Result Comment: [08/24/2015] given w/out incident 14Admin [...] Refills, Maintenance, 01/17/23 12:44:00 EDT, [facility] 22287, 156.15, cm, 11/29/22 14:40:00 EST, Height, 79.5, [...] 90 Unknown,1 Refills, Maintenance, 06/10/23 8:18:00 EDT, [facility] 03992, 90, USE 1 SPRAY IN BOTH NOSTRILS [...] Refills, Soft Stop, 03/14/23 15:31:00 EDT, [facility], Partial fill upon patient request if theprescription is for a schedule II opioid drug., 155... Start Date: 03/14/23 Status: Ordered fexofenadine 180 mg oral tablet 1 tablet = 180 mg, By Mouth, Daily, PRN for allergy symptoms, # 90 tablet, 4 Refills, Maintenance, 09/02/23 11:04:00 EDT, Tablet, [facility]/pharmacy #2476, Partial fill upon patient [...] Refills, Maintenance, 10/28/23 10:28:00 EST, Tablet, [facility], Partial fill upon patient request if the [...] Personnel Name: Justa HARRIS, Geni Orlando Position: [facility] Associate Professional Member Role: Primary Care Nurse Address: Address: [address] [place] [address]- Name: Talia Matute RN Position: [facility] RN Member Role: Primary Care Nurse Name: Santi James MD Position: [facility] Physician - Primary Care Member Role: PCP Address: Address: [address] [place] [address] Adult & [place] [address]- Care Team Related Persons Name: PITER BAILEY Address: home [address] [place] [address] Name: DELMIS ADAMS Address: home [place], [place] Name: RUPERT PALMER Address: home [address] [place], [place] Name: DESIRAE CHAUDHARY Address: [address] [address]
--- OUTSIDE RECORDS SUMMARY | 2024-07-15 15:50 | XMS_ITS | Continuity of Care Document ---
Author Organization [facility] Address [address] [place] [address]- Care Team Providers Care Ripsaw Operator Name Role Phone Santi James MD Primary Care Physician [facility] 07/14/23 - 08/13/23 [facility] [address] [place], [place] [address] Allergies, Adverse Reactions, [...] Nitin rded influenza virus vaccine, inactivated 08/01/17 Niitn rded influenza virus vaccine, inactivated 07/23/17 Nitin [...] [facility] [place] 7Admin Note: per pt, done at [facility] 8Admin Note: done @ [facility], form received 9Admin Note: given at work 10Admin Note: given in the fall 11Result Comment: [id number] 12Result Comment: [08/31/2018] [id number] 13Result Comment: [08/24/2015] given w/out incident 14Admin [...] tablet, 3 Refills, Maintenance, 01/17/23 12:44:00 EDT, [facility] 09094, 156.15, cm, 11/29/22 14:40:00 EST, Height, 79.5, [...] 90 Unknown,1 Refills, Maintenance, 06/10/23 8:18:00 EDT, [facility] STORE 14076, 90, USE 1 SPRAY IN BOTH NOSTRILS 2 TIMES A DAY NEEDED FOR ALLERGIES, 155, cm, ... Start Date: 06/10/23 Status: Ordered CeleBREX 100 mg oral capsule 1 capsule = 100 mg, By Mouth, 2 times a day, PRN for pain, # 60 capsule, 4 Refills, Maintenance, 08/12/23 15:29:00 EDT, Capsule, [facility]/pharmacy #1966, replaces ibuprofen, 155, cm, 08/12/23 15:09:00 EDT, [...] 155... Start Date: 03/14/23 Status: Ordered ergocalciferol 74219 iu oral capsule 50,000 International_Units, 1, capsule, [...] Personnel Name: Justa HARRIS, Geni Orlando Position: [facility] Associate Professional Member Role: Primary Care Nurse Address: Address: [address] [place] [address] [address]- Name: Juju QIU, Talia Position: [facility] RN Member Role: Primary Care Nurse Name: Santi James MD Position: [facility] Physician - Primary Care Member Role: PCP Address: Address: [address] [place] [address] Adult & [place] [address]- Care Team Related Persons Name: PITER BAILEY Address: home [address] [place] [address] Name: DELMIS ADAMS Address: [place] [address] Name: RUPERT PALMER Address: home [address] [place] [address] Name: DESIRAE CHAUDHARY Address: home [address] [place], [place]
--- OUTSIDE RECORDS SUMMARY | 2024-07-15 15:50 | XMS_ITS | Continuity of Care Document ---
Author Organization [facility] Address [address] [place] [address]- Care Team Providers Care Assistant Warehouse Manager Name Role Phone Santi James MD Primary Care Physician [facility] Date[facility] 06[facility]26/21 - 07/26/21 [facility] [address] [place], [place] [address] Allergies, Adverse Reactions, Alerts [...] Given 1Admin Note: done @ [facility], form received 2Admin Note: done @ [facility],form received 3Result Comment: [07/31/2015] [facility] 4Admin Note: done @ [facility] 5Admin Note: vis sheet given. 6Admin Note: work 7Admin Note: given at [facility] [place] 8Admin Note: per pt, done at [facility] 9Admin Note: given at work 10Admin Note: given in the fall 11Result Comment: [id number] 12Result Comment: [08/31/2018] [id number] 13Result Comment: [08/24/2015] given w/out incident 14Admin Note: per pt 15Admin Note: [facility] Medications acetaminophen 650 mg oral tablet, extended release 1 tablet = 650 mg, By Mouth, Every 8 hours, PRN Pain , Moderate, for 30 days, # 90 tablet, 7 Refills, Acute 10/24/21 12:47:00 EST, 02/26/21 12:47:00 EDT, ER Tablet, [facility] #[id number], 156, cm, 05/11/20 10:31:00 EDT, Height, 78.8, kg, ... Start Date: 02/26/21 Stop Date: 10/24/21 Status: Ordered albuterol 0.083% inhalation solution 3 mL = 2.5 mg, Inhalation, Every 6 hours, PRN for wheezing, Dx: asthma, # 100 each, 4 Refills, Maintenance, 12/01/19 12:54:00 EST, Solution, [facility]/pharmacy #[id number], 156, cm, 12/01/19 12:40:00 EST, Height, 79.6, kg, 03/10/19 14:10:00 EDT, Dry Weight Start Date: 12/01/19 Stop Date: 04/29/20 Status: Ordered albuterol CFC free 90 mcg/inh inhalation aerosol 2, puffs, Inhalation, Every 4 hours, PRN, # 1 each, Refills 3, Tot. Refills 3, Maintenance, 03/13/21 8:25:00 EDT, Aerosol, Route to Pharmacy Electronically, [id number], [facility] #[id number], 156, cm, 03/13/21 8:16:00 E... Start Date: [...] 3 Refills, Maintenance, 03/13/21 8:26:00 EDT, Tablet, [facility] #[id number], 156, cm, 03/13/21 8:16:00 EDT, Height, 78.8, [...] mL, 0 Refills, Maintenance, 07/25/20 16:52:00 EDT, [place], [facility]/pharmacy #3956, 2 sprays Nares, Both 2 times a day, 156, cm, 03/13/20 10:31:00 EDT, Height, 78.8, kg, 12/20/19 10:35:00 EST, Dry Weight Start Date: 07/25/20 Status: Ordered levothyroxine 0.05 mg oral tablet 1 tablet = 50 mcg, By Mouth, Daily, # 90 tablet, 3 Refills, Maintenance, 03/13/21 8:24:00 EDT, Tablet, [facility] #[id number], 156, cm, 03/13/21 8:16:00 EDT, Height, 78.8, kg, 12/20/19 10:35:00 EST, Dry Weight Start Date: 03/13/21 Stop Date: 03/08/22 Status: Ordered montelukast 10 mg oral tablet See Instructions, TAKE 1 TABLET BY MOUTH DAILY, # 90 tablet, Refills 1, Instructions Replace Required Details, Route to Pharmacy Electronically, [facility] #[id number], 156, cm, 03/13/21 8:35:00EDT, Height, 78.8, kg, [...]
--- OUTSIDE RECORDS SUMMARY | 2024-07-15 15:50 | XMS_ITS | Continuity of Care Document ---
Author Organization [facility] Address [address] [place] [address]- Care Team Providers Care Rehabilitation Center Manager Name Role Phone Jacob DORAN, Santi Primary Care Physician [facility] Date[facility]s): 11/16/20 - 12/16/20 [facility] [address] [place], [place] [address] Allergies, Adverse Reactions, Alerts Substance [...] in the fall 3Admin Note: done @ [facility], form received 4Result Comment: [id number] 5Result Comment: [08/31/2018] [id number] 6Result Comment: [08/24/2015] given w/out incident 7Admin Note: done @ [facility],form received 8Result Comment: [07/31/2015] [facility] 9Admin Note: done @ [facility] 10Admin Note: vis sheet given. 11Admin Note: work 12Admin Note: given at [facility] 13Admin Note: per pt, done at [facility] 14Admin Note: per pt 15Admin Note: [facility] Medications albuterol 0.083% inhalation solution 3 mL = 2.5 mg, Inhalation, Every 6 hours, PRN for wheezing, Dx: asthma, # 100 each, 4 Refills, Maintenance, 12/01/19 12:54:00 EST, Solution, [facility]/pharmacy #[id number], 156, cm, 12/01/19 12:40:00 EST, Height, 79.6, kg, 03/10/19 14:10:00 EDT, Dry Weight Start Date: 12/01/19 Stop Date: 04/29/20 Status: Ordered albuterol CFC free 90 mcg/inh inhalation aerosol 2, puffs, Inhalation, Every 4 hours, PRN, # 9 Gm, Refills 0, Tot. Refills 0, Maintenance, 10/28/17 14:12:34, Aerosol, Route to Pharmacy Electronically, [id number], [facility]/pharmacy #1972, Compound Start Date: 10/28/17 [...] 5 Refills, Maintenance, 10/10/20 12:10:00 EST, Tablet, [facility]/pharmacy #[id number], 156, cm, 03/13/20 10:31:00 [...] 10/05/20 15:45:00 EST, Route to Pharmacy Electronically, [facility] [id number], 156, cm, 03/13/20 10:31:00 EDT, Height, 78.8, kg, 12/20/19 10:35:00 EST, Dry Weight Start Date: 10/05/20 Status: Ordered ipratropium nasal 21 mcg/inh spray 2 sprays, Nares, Both, 2 times a day, # 30 mL, 0 Refills, Maintenance, 07/25/20 16:52:00 EDT, [place], [facility]/pharmacy #[id number], 2 sprays Nares, Both 2 times a day, 156, cm, 03/13/20 10:31:00 EDT, Height, 78.8, kg, 12/20/19 10:35:00 EST, Dry Weight Start Date: 07/25/20 Status: Ordered levothyroxine 0.05 mg oral tablet 1 tablet = 50 mcg, By Mouth, Daily, # 90 tablet, 3 Refills, Maintenance, 03/13/20 11:08:00 EDT, Tablet, [facility]/pharmacy #[id number], 156, cm, 03/13/20 10:31:00 EDT, Height, 78.8, kg, 12/20/19 10:35:00 EST, Dry Weight Start Date: 03/13/20 Stop Date: 03/08/21 Status: Ordered montelukast 10 mg oral tablet 1, tablet, By Mouth, Daily, # 90 tablet, Refills 2, Tot. Refills 0, Maintenance, 10/05/20 15:45:00 EST, Route to Pharmacy Electronically, [facility] 138[facility], 156, cm, 03/13/20 10:31:00 EDT, Height, 78.8, [...] Refills, Soft Stop, 09/14/20 8:46:00 EST, Tablet, [facility]/pharmacy #2476, 156,cm, 03/13/20 10:31:00 EDT, Height, 78.8, kg, ... Start Date: 09/14/20 Status: Ordered Qvar Redihaler 40 mcg/inh inhalation aerosol 1 puffs, Inhalation, 2 times a day, rinse mouth and throat after use, # 1 each, 0 Refills, Maintenance, 09/14/20 8:47:00 EST, [facility]/pharmacy #[id number], 1 puffs Inhalation 2 [...]
--- OUTSIDE RECORDS SUMMARY | 2024-07-15 15:50 | XMS_ITS | Continuity of Care Document ---
Author Organization [facility] Address [address] [place] [address]- Care Team Providers Care Photo Finisher Name Role Phone Santi James MD Primary Care Physician [facility] Date(s): 05/27/22 - 06/26/22 [facility] [address] [place], [place] [address] Allergies, Adverse Reactions, [...] 1Admin Note: done @ [facility],form received 2Result Comment: [07/31/2015] [facility] 3Admin Note: done @ [facility] 4Admin Note: vis sheet given. 5Admin Note: work 6Admin Note: given at [facility] in [place] 7Admin Note: per pt, done at [facility] 8Admin Note: done @ [facility], form received 9Admin Note: given at work 10Admin Note: given in the fall 11Result Comment: [id number] 12Result Comment: [08/31/2018] [id number] 13Result Comment: [08/24/2015] given w/out incident 14Admin Note: per pt 15Admin Note: [facility] Medications acetaminophen 650 mg oral tablet, extended release 1 tablet, By Mouth, Every 8 hours, PRN NEEDED FOR PAIN, # 90 tablet, 3 Refills, [facility] 02299,156, cm, 04/04/22 7:36:00 EDT, Height, 78.9, kg, 04/04/22 7:36:00 EDT, Dry Weight Start Date: 04/08/22 Status: Ordered Albuterol (Eqv-ProAir HFA) 90 mcg/inh inhalation aerosol 2 puffs, Inhalation, Every 6 hours, PRN Wheezing/Shortness of Breath, # 6.7 Gm, 11 Refills, Maintenance, 02/26/22 9:18:00 EDT, [facility]/pharmacy #[id number], [...] each, 4 Refills, Maintenance, 02/07/22 12:08:00 EDT, [place], [facility]/pharmacy #2476, Partial fill upon patient request if the prescription is for a schedule II opioid drug., 1 sprays Nares... Start Date: 02/07/22 Stop Date: 07/07/22 Status: Ordered cetirizine 10 mg oral tablet 1 tablet, By Mouth, Daily, # 90 tablet, 3 Refills, [facility] 62241, 156, cm, 03/18/22 8:26:00 EDT, Height Start [...] 0 Refills, Soft Stop, 06/20/22 13:59:00 EDT, Tablet,[facility]/pharmacy #[id number], Partial fill upon patient request if the prescription is for a schedule II opioid drug., 155, cm, 06/06/22 11:17:00 EDT, Height, 79... Start Date: 06/20/22 Status: Ordered fluticasone 50 mcg/inh nasal spray See Instructions, USE 1 SPRAY IN EACH NOSTRL 2 TIMES A DAY X 5 DAYS, AND THEN DAILY THEREAFTER, # 48 mL, 1 Refills, [facility] 80038, 90, USE 1 SPRAY IN EACH NOSTRL 2 TIMES A DAY X 5 DAYS, AND THEN DAILY THEREAFTER, 156, cm, 04/04/22 7:36:00 EDT, Heigh... Start Date: 04/30/22 Status: Ordered levothyroxine 0.05 mg oral tablet See Instructions, TAKE 1 TABLET BY MOUTH EVERY DAY, # 90 tablet, 1 Refills, [facility] 23687, 156, cm, 02/07/22 11:31:00 EDT, Height Start Date: 02/19/22 Status: Ordered loratadine 10 mg oral tablet 10 mg, 1, tablet, By Mouth, Daily, # 30 tablet, Refills 11, Tot. Refills 11, Maintenance, 02/26/22 9:18:00 EDT, [place] Pharmacy Electron[facility], [facility] [...] 02/26/22 9:18:00 EDT, [place] to Pharmacy Electronically, [facility] [...] 9:18:00 EDT, Aerosol, Route to Pharmacy Electronically, [id number]... Start Date: 02/26/22 Status: Ordered Vitamin D3 [...] pack/packet, 0 Refills, Maintenance, 06/17/22 17:01:00 EDT, [facility]/pharmacy #2476, [...]
--- OUTSIDE RECORDS SUMMARY | 2024-07-15 15:50 | XMS_ITS | Continuity of Care Document ---
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 11Admin Note: work 12Admin Note: given at [facility] 13Admin Note: per pt, done at [facility] 14Admin Note: per pt 15Admin Note: [facility] Medications albuterol 0.083% inhalation solution 3 mL = 2.5 mg, Inhalation, Every 6 hours, PRN for wheezing, Dx: asthma, # 100 each, 4 Refills, Maintenance, 12/01/19 12:54:00 EST, Solution, [facility]/pharmacy #0246, 156, cm, 12/01/19 12:40:00 EST, Height, 79.6, kg, 03/10/19 14:10:00 EDT, Dry Weight Start Date: 12/01/19 Stop Date: 04/29/20 Status: Ordered albuterol CFC free 90 mcg/inh inhalation aerosol 2, puffs, Inhalation, Every 4 hours, PRN, # 9 Gm, Refills 0, Tot. Refills 0, Maintenance, 10/28/17 14:12:34, Aerosol, Route to Pharmacy Electronically, [id number], [facility]/pharmacy #1972, Compound Start Date: 10/28/17 Status: Ordered [...] Refills, Maintenance, 10/10/20 12:10:00 EST, Tablet, [facility]/pharmacy #[id number], 156, cm, 03/13/20 10:31:00 EDT, Height, [...] 15:45:00 EST, Route to Pharmacy Electronically, [facility] 17608, 156, cm, 03/13/20 10:31:00 EDT, Height, 78.8, kg, 12/20/19 10:35:00 EST, Dry Weight Start Date: 10/05/20 Status: Ordered ipratropium nasal 21 mcg/inh spray 2 sprays, Nares, Both, 2 times a day, # 30 mL, 0 Refills, Maintenance, 07/25/20 16:52:00 EDT, [place], [facility]/pharmacy #2476, 2 sprays Nares, Both 2 times a day, 156, cm, 03/13/20 10:31:00 EDT, Height, 78.8, kg, 12/20/19 10:35:00 EST, Dry Weight Start Date: 07/25/20 Status: Ordered levothyroxine 0.05 mg oral tablet 1 tablet = 50 mcg, By Mouth, Daily, # 90 tablet, 3 Refills, Maintenance, 03/13/20 11:08:00 EDT, Tablet, [facility]/pharmacy #2476, 156, cm, 03/13/20 10:31:00 EDT, Height, 78.8, kg, 12/20/19 10:35:00 EST, Dry Weight Start Date: 03/13/20 Stop Date: 03/08/21 Status: Ordered montelukast 10 mg oral tablet 1, tablet, By Mouth, Daily, # 90 tablet, Refills 2, Tot. Refills 0, Maintenance, 10/05/20 15:45:00 EST, Route to Pharmacy Electronically, [facility] 0[facility]34, 156, cm, 03/13/20 10:31:00 EDT, Height, 78.8, [...] 0 Refills, Maintenance, 09/14/20 8:47:00 EST, [facility]/pharmacy #[id number], 1 puffs Inhalation 2 times a [...] Effective Dates Health Status Clinical Service Informant IgA deficiency Discharge Diagnosis 01/09/21 GARCIA (obstructive sleep apnea) Discharge Diagnosis 01/09/21 Social History Social History Type Response Smoking Status Never smoker entered on: 10/12/14 Sex
--- OUTSIDE RECORDS SUMMARY | 2024-07-15 15:50 | XMS_ITS | Continuity of Care Document ---
Author Organization [facility] Address [address] [place] [address]- Care Team Providers Care Spectrograph Operator Name Role Phone Santi James MD Primary Care Physician [facility] Date[facility]s): 12/16/19 - 12/23/19 [facility] [address] [place] [address]- [facility] Attending Physician: Santi James MD [...] in the fall 3Admin Note: done @ [facility], form received 4Result Comment: [id number] 5Result Comment: [08/31/2018] [id number] 6Result Comment: [08/24/2015] given w/out incident 7Admin Note: done @ [facility],form received 8Result Comment: [07/31/2015] [facility] 9Admin Note: done @ [facility] 10Admin Note: vis sheet given. 11Admin Note: work 12Admin Note: given at [facility] 13Admin Note: per pt, done at [facility] 14Admin Note: per pt 15Admin Note: [facility] Medications acetaminophen 650 mg oral tablet, extended release 1 tablet = 650 mg, By Mouth, Every 8 hours, PRN as needed for pain, for 30 days, # 100 tablet, 1 Refills, Acute 02/01/20 11:16:00 EDT, 12/03/19 11:16:00 EST, ER Tablet, [facility]/pharmacy #[id number], 156, cm, 12/03/19 8:37:00 EST, [...] Refills, Maintenance, 12/01/19 12:54:00 EST, Solution, [facility]/pharmacy #2476, 156, cm, 12/01/19 12:40:00 EST, Height, 79.6, kg, 03/10/19 14:10:00 EDT, Dry Weight Start Date: 12/01/19 Stop Date: 04/29/20 Status: Ordered albuterol CFC free 90 mcg/inh inhalation aerosol 2, puffs, Inhalation, Every 4 hours, PRN, # 9 Gm, Refills 0, Tot. Refills 0, Maintenance, 10/28/17 14:12:34, Aerosol, Route to Pharmacy Electronically, [id number], [facility]/pharmacy #1972, [...] 08/16/19 14:35:23 EDT, Route to Pharmacy Electronically, [id number], [facility]/pharmacy #2476, increase in dose Start Date: [...] EST, Compound Start Date: 12/09/19 Status: Ordered meclizine 25 mg oral tablet 1 tablet = 25 mg, By Mouth, 3 times a day, PRN for dizziness, # 30 tablet, 0 Refills, Acute 12/24/19 10:52:00 EST, 12/20/19 10:52:00 EST, Tablet, [facility]/pharmacy #[id number], 156, cm, 12/20/19 10:35:00 EST, Height, 78.8, kg, 12/20/19 10:35:00 EST, Dry Weight Start Date: 12/20/19 Stop Date: 12/24/19 Status: Ordered montelukast 10 mg oral tablet 10 mg, 1, tablet, By Mouth, Daily, # 30 tablet, Refills 7, Tot. Refills 7, Maintenance, 09/13/19 13:49:27 EST, Route to Pharmacy Electronically, [id number], [facility]/pharmacy #[id number] Start Date: 09/13/19 Stop Date: [...] oldest [Reference Range]: 1 Height 156 cm (12/16/19 2:23 PM) Weight 77.2 kg (12/16/19 2:23 PM) Oxygen Saturation [94-100 %] 96 % (12/16/19 2:23 PM) Pulse Rate [55-90 bpm] 58 bpm (12/16/19 2:23 PM) Body Mass Index [18.5-24.99] 31.72 *>HHI* (12/16/19 2:23 PM) Blood Pressure [90-138/55-84 mm Hg] 132/ 74mm Hg (12/16/19 2:23 PM) Mode of Delivery (Oxygen) Room air (12/16/19 2:23 PM) Blood pressure sites Arm, left (12/16/19 2:23 PM) Social History Social History Type Response Smoking Status Never smoker entered on: 10/12/14 Sex
--- OUTSIDE RECORDS SUMMARY | 2024-07-15 15:51 | XMS_ITS | Continuity of Care Document ---
Author Organization [facility] Address [address] [place] [address]- Care Team Providers Care Patching Machine Operator Name Role Phone Santi James MD Primary Care Physician Encounter [facility] Date(s): 03/14/23 - 03/21/23 [facility] [address] [place], [place] [address] Attending Physician: Santi James MD Allergies, Adverse Reactions, Alerts Substance Reaction Severity Status doxycycline Hives Active morphine Active predniSONE Anaphylaxis Active Percocet Active Lipitor Myalgia unspecified Muscle cramps Active Topamax Skin rash Active nitrofurantoin Pruritus Rash Active benzonatate Speech impediment Active Lopid Muscle cramps Myalgia and myositis unspecified Active Biaxin Upset stomach Active Levaquin Hives Active Demerol Active tiZANidine [...] 6Admin Note: given at [facility] [place] 7Admin Note: per pt, done at [facility] 8Admin Note: done @ [facility], form received 9Admin Note: given at work 10Admin Note: given in the fall 11Result Comment: [id number] 12Result Comment: [08/31/2018] [id number] 13Result Comment: [08/24/2015] given w/out incident 14Admin Note: per pt 15Admin Note: [facility] Medications acetaminophen 650 mg oral tablet, extended release 1 tablet, By Mouth, Every 8 hours, PRN NEEDED FOR PAIN, # 90 tablet, 3 Refills, Maintenance, 01/17/23 12:44:00 EDT, [facility], 156.15, cm, 11/29/22 14:40:00 EST, Height, 79.5, kg, 06/06/22 11:17:00 EDT, Dry Weight Start Date: 01/17/23 Status: Ordered Albuterol (Eqv-Proventil HFA) 90 mcg/inh inhalation aerosol 2 puffs, Inhalation, Every 6 hours, PRN Wheezing/Shortness of Breath, # 8.5 Gm, 11 Refills, Maintenance, 03/14/23 15:42:00 EDT, [facility]/pharmacy #2476, Partial fill upon patient request if the prescription is for a schedule II opioid drug., 155, cm, 03/13... Start Date: 03/14/23 Stop Date: 03/08/24 Status: Ordered aspirin 81 mg oral tablet 1 tablet = 81 mg, By Mouth, Daily, # 30 tablet, 10 Refills, Maintenance, 12/09/19 10:24:00 EST, Tablet Start Date: 12/09/19 Stop Date: 11/03/20 Status: Ordered azelastine 137 mcg/inh (0.1%) nasal spray 1 sprays, Nares, Both, 2 times a day, PRN Other Allergies, # 1 each, 10 Refills, Maintenance, 11/25/22 15:18:00 EST, [place], [facility]/pharmacy #2476, replaces 0.15% dose, 1 [...] Refills, Soft Stop, 03/14/23 15:31:00 EDT, [facility]/pharmacy #[id number], Partial fill upon patient [...] 1 Refills, Maintenance, 03/01/23 14:21:00 EDT, [facility]ORE 11022, 156.15, cm, 11/29/22 14:40:00 EST, Height, 79.5, kg, 06/06/22 11:17:00 EDT, Dry Weight Start Date: 03/01/23 Status: Ordered lidocaine 5% topical film See Instructions, Topically Daily remove patches after 12 hours, # 10 patch, 0 Refills, Acute 03/23/23 9:00:00 EDT, 03/13/23 10:46:00 EDT, [place], [facility]/pharmacy #2476, Partial fill upon patient requestif the prescription is for a schedule II opioid dr... Start Date: 03/13/23 Stop Date: 03/23/23 Status: Ordered methocarbamol 750 mg oral tablet 1 tablet = 750 mg, By Mouth, 3 times a day, PRN muscle spasm, for 10 days, # 30 tablet, 0 Refills, Acute 03/23/23 13:00:00 EDT, 03/13/23 13:00:00 EDT, Tablet, [facility]/pharmacy #2476, Partial fill upon patient request if the prescription is for a schedule... Start Date: 03/13/23 Stop Date: 03/23/23 Status: Ordered montelukast 10 mg oral tablet [...] Date: 02/07/22 Stop Date: 03/09/22 Status: Ordered Problem List Condition Confirmation Course [...] Personnel Name: Justa HARRIS, Geni Orlando Position: [facility] Associate Professional Member Role: Primary Care Nurse Address: Address: [address] [place] [address]- [place] Name: Talia Matute RN Position: [facility] RN Member Role: Primary Care Nurse Name: Santi James MD Position: [facility] Primary Care Physician Member Role: PCP Address: Address: [address] [place] [address] Adult [place] [address]- Care Team Related Persons Name: PITER BAILEY Address: home [address] [place], [place] [id number] Name: DELMIS ADAMS Address: home [place], [place] Name: RUPERT PALMER Address: home [address] [place], [place] Name: DESIRAE CHAUDHARY Address: home [address] [place], [place]
--- OUTSIDE RECORDS SUMMARY | 2024-07-15 15:51 | XMS_ITS | Continuity of Care Document ---
Author Organization [facility] Address [address] [place] [address]- Care Team Providers Care Accounting Practice Manager Name Role Phone Jacob DORAN, Santi Primary Care Physician [facility]23 - 03/05/23 [facility] [address] [place], [place] [address] Allergies, Adverse Reactions, Alerts [...] Note: given in the fall 11Result Comment: [id number] 12Result Comment: [08/31/2018] [id number] 13Result Comment: [08/24/2015] given w/out incident 14Admin Note: per pt 15Admin Note: mass bio Medications acetaminophen 650 mg oral tablet, extended release 1 tablet, By Mouth, Every 8 hours, PRN NEEDED FOR PAIN, # 90 tablet, 3 Refills, Maintenance, 01/17/23 12:44:00 EDT, [facility] STORE 60665, 156.15, cm, 11/29/22 14:40:00 EST, Height, 79.5, kg, 06/06/22 11:17:00 EDT, Dry Weight Start Date: 01/17/23 Status: Ordered Albuterol (Eqv-ProAir HFA) 90 mcg/inh inhalation aerosol 2 puffs, Inhalation, Every 6 hours, PRN Wheezing/Shortness of Breath, # 6.7 Gm, 11 Refills, Maintenance, 08/29/22 9:07:00 EDT, [facility]/pharmacy #[id number], Partial fill upon patient [...] each, 10 Refills, Maintenance, 11/25/22 15:18:00 EST, [place], [facility]/pharmacy #[id number], replaces 0.15% dose, 1 [...] 16 Gm, 11 Refills, 08/29/22 9:07:00 EDT, [facility]/pharmacy #[id number], USE 1 SPRAY IN EACH NOSTRL 2 TIMES A DAYX 5 DAYS, AND THEN DAILY THEREAFTER, 156.15, cm, 10... Start Date: 08/29/22 Status: Ordered levothyroxine 0.05 mg oral tablet 1 tablet, By Mouth, Daily, # 90 tablet, 1 Refills, Maintenance, 03/01/23 14:21:00 EDT, [facility] STORE 87632, 156.15, cm, 11/29/22 14:40:00 EST, Height, 79.5, kg, 06/06/22 11:17:00 EDT, Dry Weight Start Date: 03/01/23 Status: Ordered loratadine 10 mg oral tablet 10 mg, 1, tablet, By Mouth, Daily, # 30 tablet, Refills 11, Tot. Refills 11, Maintenance, 08/29/22 9:07:00 EDT, Route to Pharmacy Electronically, [facility]/pharmacy #[id number], Partial fill upon patient [...] 1 each, 11 Refills, Maintenance, 11/28/2314:07:00 EST, [facility], Partial fill upon [...] 08/29/22 9:07:00 EDT, Route to Pharmacy Electronically, [facility]/pharmacy #1206, Partial fill upon patient requestif the prescription is for a schedule II opioid lauro... Start Date: 08/29/22 Status: Ordered Symbicort 160mcg/4.5mcg Inhaler 2, puffs, Inhalation, 2 times a day, in the morning and the evening use with spacer chamber rinse mouth and throat after use, # 1 each, Refills 5, Tot. Refills 5, Maintenance, 10/17/22 10:03:00 EST, Aerosol, Route to Pharmacy Electronically, [id number]... Start Date: 10/17/22 Status: Ordered Vitamin D3 [...] Personnel Name: Justa HARRIS, Geni Orlando Position: [facility] Associate Professional Member Role: Primary Care Nurse Address: Address: [address] [place] [address]- [place] Name: Santi James MD Position: [facility] Primary Care Physician Member Role: PCP Address: Address: [address] [facility] [place] [address]- Care Team Related Persons Name: PITER BAILEY Address: home [address] [place] [address] Name: DELMIS ADAMS Address: home [address] [place], [place] Name: RUPERT PALMER Address: home [address] [place], [place] Name: DESIRAE CHAUDHARY Address: home [address] [place], [place]
--- OUTSIDE RECORDS SUMMARY | 2024-07-15 15:51 | XMS_ITS | Continuity of Care Document ---
Author Organization [facility] Address [address] [place] [address]- Care Team Providers Care Fish Straightener Name Role Phone Santi James MD Primary Care Physician [facility]): 08[facility]13/23 - 09/12/23 [facility] [address] [place], [place] [address] Allergies, Adverse [...] 11/03/99 Given 1Admin Note: done @ [facility],form received 2Result Comment: [07/31/2015] [facility] 3Admin Note: done @ [facility] 4Admin Note: vis sheet given. 5Admin Note: work 6Admin Note: given at [facility] [place] 7Admin Note: per pt, done at [facility] 8Admin Note: done @ [facility], form received 9Admin Note: given at work 10Admin Note: given in the fall 11Result Comment: [id number] 12Result Comment: [08/31/2018] [id number] 13Result Comment: [08/24/2015] given w/out incident 14Admin [...] tablet, 3 Refills, Maintenance, 01/17/23 12:44:00 EDT, [facility] 55[facility], 156.15, cm, 11/29/22 14:40:00 EST, Height, 79.5, [...] 90 Unknown,1 Refills, Maintenance, 06/10/23 8:18:00 EDT, [facility] 00077, 90, USE 1 SPRAY IN BOTH NOSTRILS 2 TIMES A DAY NEEDED FOR ALLERGIES, 155, cm, ... Start Date: 06/10/23 Status: Ordered CeleBREX 100 mg oral capsule 1 capsule = 100 mg, By Mouth, 2 times a day, PRN for pain, # 60 capsule, 4 Refills, Maintenance, 08/12/23 15:29:00 EDT, Capsule, [facility]/pharmacy #4896, replaces ibuprofen, 155, cm, 08/12/23 15:09:00 EDT, [...] Refills, Soft Stop, 03/14/23 15:31:00 EDT, [facility]/pharmacy #[id number], Partial fill upon patient request if theprescription is for a schedule II opioid drug., 155... Start Date: 03/14/23 Status: Ordered ergocalciferol 30738 iu oral capsule 50,000 International_Units, 1, capsule, By Mouth, Every week, # 12 capsule, Refills 0, Tot. Refills0, Maintenance, 06/12/23 7:24:00 EDT, Route to Pharmacy Electronically, [facility]/pharmacy #[id number], Partialfill upon patient request if the prescription is fo... Start Date: 06/12/23 Stop Date: 09/04/23 Status: Ordered fexofenadine 180 mg oral tablet 1 tablet = 180 mg, By Mouth, Daily, # 30 tablet, 0 Refills, Maintenance, 03/14/23 15:41:00 EDT, Tablet, Partial fill upon patient request if the prescription is for a schedule II opioid drug. Start Date: 03/14/23 Status: Ordered fexofenadine 180 mg oral tablet 1 tablet = 180 mg, By Mouth, Daily, PRN for allergy symptoms, # 90 tablet, 4 Refills, Maintenance, 09/02/23 11:04:00 EDT, Tablet, [facility]/pharmacy #2476, Partial fill upon patient request if the prescription is for a schedule II opioid drug., 155, cm, ... Start Date: 09/02/23 Stop Date: 11/25/24 Status: Ordered ibuprofen 800 mg oral tablet 1, tablet, By Mouth, 3 times a day, X30 DAYS, STOP ASPIRIN WHILE TAKING THIS., # 90 tablet, Refills1, Maintenance, 09/09/23 12:42:00 EST, Route to Pharmacy Electronically, [facility] STORE 71721, 155, cm, 08/12/23 15:09:00 EDT, Height, 83.9, kg, 03/13/23 4:... Start Date: 09/09/23 Status: Ordered levothyroxine 0.05 mg oral tablet 1 tablet, By Mouth, Daily, # 90 tablet, 3 Refills, Maintenance, 08/12/23 15:31:00 EDT, [facility]/pharmacy#2476, 155, cm, 08/12/23 15:09:00 EDT, [...] Refills, Maintenance, 03/28/23 13:04:00 EDT, Aerosol, [facility]/pharmacy #2476, replaced Proventil that is [...] Team Personnel Name: Geni Marr NP Position: [facility] Associate Professional Member Role: Primary Care Nurse Address: Address: [address] [facility] [place] [address]- Name: Talia Matute RN Position: [facility] RN Member Role: Primary Care Nurse Name: Santi James MD Position: [facility] Physician - Primary Care Member Role: PCP Address: Address: [address] [place] [address] Adult [facility] [place] [address]- Care Team Related Persons Name: PITER BAILEY Address: home [address] [place] [address] Name: DELMIS ADAMS Address: home [place], [place] Name: RUPERT PALMER Address: home [address] [place], [place] Name: DESIRAE CHAUDHARY Address: home [address] [place], [place]
--- OUTSIDE RECORDS SUMMARY | 2024-07-15 15:51 | XMS_ITS | Continuity of Care Document ---
Author Organization [facility] Address [address] [place] [address]- Care Team Providers Care Carbonizer Name Role Phone Santi James MD Primary Care Physician [facility]s): 03/12/23 - 04/11/23 [facility] [address] [place], [place] [address] Allergies, Adverse Reactions, Alerts Substance [...] given at [facility] [place] 7Admin Note: per pt, done at [facility] 8Admin Note: done @ [facility], form received 9Admin Note: given at work 10Admin Note: given in the fall 11Result Comment: [id number] 12Result Comment: [08/31/2018] [id number] 13Result Comment: [08/24/2015] given w/out incident 14Admin Note: per pt 15Admin Note: mass bio Medications acetaminophen 650 mg oral tablet, extended release 1 tablet, By Mouth, Every 8 hours, PRN NEEDED FOR PAIN, # 90 tablet, 3 Refills, Maintenance, 01/17/23 12:44:00 EDT, [facility]14[facility], 156.15, cm, 11/29/22 14:40:00 EST, Height, 79.5, [...] each, 10 Refills, Maintenance, 11/25/22 15:18:00 EST, [place], [facility]/pharmacy #2476, replaces 0.15% dose, 1 sprays [...] 155... Start Date: 03/14/23 Status: Ordered ergocalciferol 20432 iu oral capsule 50,000 International_Units, 1, capsule, By Mouth, Every week, # 12 capsule, Refills 0, Tot. Refills0, Maintenance, 04/10/23 9:13:00 EDT, [facility] to Pharmacy Electronically, [facility] [...] 03/01/23 14:21:00 EDT, [facility] STORE 79084, 156.15, cm, 11/29/22 14:40:00 EST, Height, 79.5, [...] 03/28/23 13:04:00 EDT, Aerosol, [facility]/pharmacy #8067, replaced Proventil that is not available, 155, [...] Personnel Name: Justa HARRIS, Geni Orlando Position: [facility] Associate Professional Member Role: Primary Care Nurse Address: Address: [address] [facility] [place] [place] [address]- Name: Talia Matute RN Position: [facility] RN Member Role: Primary Care Nurse Name: Santi James MD Position: [facility] Physician - Primary Care Member Role: PCP Address: Address: [address] [place] [address] Adult & [place] [address]- Care Team Related Persons Name: PITER BAILEY Address: home [address] [place] [address] Name: DELMIS ADAMS Address: home [place], [place] Name: RUPERT PALMER Address: home [address] [place], [place] Name: DESIRAE CHAUDHARY Address: home [address] [place], [place]
--- OUTSIDE RECORDS SUMMARY | 2024-07-15 15:51 | XMS_ITS | Continuity of Care Document ---
Author Organization [facility] Address [address] [place] [address]- Care Team Providers Care Pill Machine Operator Name Role Phone Santi James MD Primary Care Physician [facility] 12/23/19 - 12/23/[address] [address]- [facility] Attending Physician: Santi James MD Allergies, [...] in the fall 3Admin Note: done @ [facility], form received 4Result Comment: [id number] 5Result Comment: [08/31/2018] [id number] 6Result Comment: [08/24/2015] given w/out incident 7Admin Note: done @ [facility],form received 8Result Comment: [07/31/2015] [facility] 9Admin Note: done @ [facility] 10Admin Note: vis sheet given. 11Admin Note: work 12Admin Note: given at [facility] 13Admin Note: per pt, done at [facility] 14Admin Note: per pt 15Admin Note: mass bio Medications acetaminophen 650 mg oral tablet, extended release 1 tablet = 650 mg, By Mouth, Every 8 hours, PRN as needed for pain, for 30 days, # 100 tablet, 1 Refills, Acute 02/01/20 11:16:00 EDT, 12/03/19 11:16:00 EST, ER Tablet, [facility]/pharmacy #2476, 156, cm, 12/03/19 [...] 4 Refills, Maintenance, 12/01/19 12:54:00 EST, Solution, [facility]/pharmacy #2476, 156, cm, 12/01/19 12:40:00 EST, Height, 79.6, kg, 03/10/19 14:10:00 EDT, Dry Weight Start Date: 12/01/19 Stop Date: 04/29/20 Status: Ordered albuterol CFC free 90 mcg/inh inhalation aerosol 2, puffs, Inhalation, Every 4 hours, PRN, # 9 Gm, Refills 0, Tot. Refills 0, Maintenance, 10/28/17 14:12:34, Aerosol, Route to Pharmacy Electronically, [id number], [facility]/pharmacy #1972, Compound Start Date: [...] 08/16/19 14:35:23 EDT, Route to Pharmacy Electronically, [id number], [facility]/pharmacy #[id number], increase in dose [...] 12/24/19 10:52:00 EST, 12/20/19 10:52:00 EST, Tablet, [facility]/pharmacy #1296, 156, cm, 12/20/19 10:35:00 EST, Height, 78.8, kg, 12/20/19 10:35:00 EST, Dry Weight Start Date: 12/20/19 Stop Date: 12/24/19 Status: Ordered montelukast 10 mg oral tablet 10 mg, 1, tablet, By Mouth, Daily, # 30 tablet, Refills 7, Tot. Refills 7, Maintenance, 09/13/19 13:49:27 EST, Route to Pharmacy Electronically, [id number], [facility]/pharmacy #2476 Start Date: 09/13/19 [...]
--- OUTSIDE RECORDS SUMMARY | 2024-07-15 15:51 | XMS_ITS | Continuity of Care Document ---
Author Organization [facility] Address [address] [place] [address]- Care Team Providers Care Mat Cutter Name Role Phone Jacob DORAN, Santi Primary Care Physician [facility]): 12/17/23 - 01/16/24 [facility] [address] [place], [place] [address] Allergies, Adverse Reactions, Alerts Substance Reaction [...] Note: given at [facility] [place] 7Admin Note: per pt, done at [facility] 8Admin Note: done @ [facility], form received 9Admin Note: given at work 10Admin Note: given in the fall 11Result Comment: [id number] 12Result Comment: [08/31/2018] [id number] 13Result Comment: [08/24/2015] given w/out incident 14Admin [...] tablet, 3 Refills, Maintenance, 01/17/23 12:44:00 EDT, [facility] 60180, 156.15, cm, 11/29/22 14:40:00 EST, Height, 79.5, [...] 90 Unknown,1 Refills, Maintenance, 06/10/23 8:18:00 EDT, [facility] 75678, 90, USE 1 SPRAY IN BOTH NOSTRILS [...] 9:46:00 EST, Tablet, [facility]/pharmacy #5442, Partial fill upon patient request if the [...] Pharmacy Electronically, [facility] STORE 02444, 155, cm, 11/18/23 16:29:00 EST, Height, 83.7, [...] Pharmacy Electronically, [facility] STORE 62803, 155, cm, 11/18/23 16:29:00 EST, Height, 83.7, [...] Personnel Name: Justa HARRIS, Geni Orlando Position: [facility] Associate Professional Member Role: Primary Care Nurse Address: Address: [address] [place] [address]- Name: Talia Matute RN Position: [facility] RN Member Role: Primary Care Nurse Name: Darshan Benz RN Position: [facility] Outreach Member Role: Primary Care Nurse Name: Santi James MD Position: [facility] Physician - Primary Care Member Role: PCP Address: Address: [address] [place] [address] Adult & [place] [address]- Care Team Related Persons Name: PITER BAILEY Address: home [address] [place] [address] Name: DELMIS ADAMS Address: home [address] [place], [place] Name: RUPERT PALMER Address: home [address] [place], [place] Name: DESIRAE CHAUDHARY Address: home [address] [place], [place]
--- OUTSIDE RECORDS SUMMARY | 2024-07-15 15:51 | XMS_ITS | Continuity of Care Document ---
Author Organization [facility] Address [address] [place] [address]- Care Team Providers Care Senior Data Warehouse Architect Name Role Phone Santi James MD Primary Care Physician Encounter [facility] Date(s): 02/05/24 - 02/12/24 [facility] [address] [place], [place] [address] Encounter Diagnosis Recurrent sinusitis(Discharge Diagnosis) - 02/05/24 Attending Physician: Chrissy Gaona MD, V Referring Physician: Santi James MD Allergies, Adverse Reactions, Alerts Substance Reaction Severity Status doxycycline Hives Active nitrofurantoin Pruritus Rash Active morphine Active predniSONE Anaphylaxis Active Percocet Active Lipitor Myalgia unspecified Muscle cramps Active benzonatate Speech impediment Active Lopid Muscle cramps Myalgia and myositis unspecified Active Biaxin Upset stomach Active Levaquin Hives Active ezetimibe Breast painful Active tiZANidine Anaphylaxis Active Topamax Skin rash Active Demerol Active Immunizations Given and Recorded [...] 6Admin Note: given at [facility] in [place] 7Admin Note: per pt, done at [facility] 8Admin Note: done @ [facility], form received 9Admin Note: given at work 10Admin Note: given in the fall 11Result Comment: [id number] 12Result Comment: [08/31/2018] [id number] 13Result Comment: [08/24/2015] given w/out incident 14Admin [...] tablet, 3 Refills, Maintenance, 01/17/23 12:44:00 EDT, [facility] 60236, 156.15, cm, 11/29/22 14:40:00 EST, Height, 79.5, [...] 90 Unknown,1 Refills, Maintenance, 06/10/23 8:18:00 EDT, [facility] STORE 51476, 90, USE 1 SPRAY IN BOTH NOSTRILS [...] Refills, Soft Stop, 12/22/23 13:26:00 EST, Tablet, [facility]/pharmacy #2476, Partial fill upon patient request if the prescription is for a schedule II opioid... Start Date: 12/22/23 Status: Ordered ibuprofen 800 mg oral tablet 1, tablet, By Mouth, 3 times a day, X30 DAYS, STOP ASPIRIN WHILE TAKING THIS., # 90 tablet, Refills1, Maintenance, 12/04/23 7:25:00 EST, Route to Pharmacy Electronically, [facility] STORE 38246, 155, cm, 11/18/23 16:29:00 EST, Height, 83.7, [...] 11/23/23 8:40:00 EST, Route to Pharmacy Electronically, [facility] STORE 69495, 155, cm, 11/18/23 16:29:00 EST, Height, 83.7, [...] inical Service Informant Recurrent sinusitis Discharge Diagnosis 02/05/24 Vital Signs Most recent to oldest [Reference Range]: 1 Height 155 cm (02/05/24 9:02 AM) Weight 83.1 kg (02/05/24 9:02 AM) Oxygen Saturation [94-100 %] 98 % (02/05/24 9:02 AM) Pulse Rate [55-90 bpm] 62 bpm (02/05/24 9:02 AM) Body Mass Index [18.5-24.99 kg/m2] 34.59 kg/m2 *>HHI* (02/05/24 9:02 AM) Blood Pressure [90-138/55-84 mm Hg] 134/ 70mm Hg (02/05/24 9:02 AM) Mode of Delivery (Oxygen) Room air (02/05/24 9:02 AM) Blood pressure sites Arm, left (02/05/24 9:02 AM) Weight Obtained Via Standing scale (02/05/24 9:02 AM) Social History Social History Type Response Smoking Status Never smoker entered on: 10/12/14 Sex Note * Monika Perez: PERFORM, SIGN, VERIFY Event Display: Patient Education/Instruction Authored Date: [id number] [facility] *[facility] Clinical Summary Name IAN BAILEY Age 59 Years 1965 PCP Jacob DORAN, Santi PCP Visit Date 02/05/2024 08:51:00 Additional Instructions: Scheduled Appointments?? Future Appointments ?*[facility] ?[address] ?[place],??[place],??[address] ?Phone:??[phone]?Fax:??-- ?Appt. Date:??02/06/2024?1:00 PM ?Scheduled Provider:??Lucho DORAN , Jonna Valencia Follow-Up Instructions ?? Diagnosis Chronic sinusitis, unspecified Medications: Please continue your medications until treatment is completed or stopped by your provider. Discuss any questions related to medications with your provider. New Medications [facility]/pharmacy #[id number], [address], [place] [id number], [phone] Azithromycin (azithromycin 250 mg oral tablet) 1 tab(s) Oral Daily. 2 tablets on first day, then one tablet daily for 4 days. Refills: 0. Next Dose: Medications to Continue [...] Refills: 1. Next Dose: Cholecalciferol (Vitamin D3 1000 intl units oral tablet) 1 tab(s) Oral Daily for 90 Days. Refills: 2. Next Dose: Durable Medical Equipment (RAVINDRA bandage 4 inch width) apply as demonstrated once daily Dx: right gastrocnemius strain. Refills: 0. Next Dose: Durable Medical Equipment (CPAP Machine) AutoCPAP 8-14 [...] Refills: 0. Next Dose: Allergy Info:?? tiZANidine; ezetimibe-simvastatin; Demerol; Levaquin; Topamax; Lipitor; Biaxin; Percocet; Lopid; benzonatate; predniSONE; morphine; nitrofurantoin; doxycycline Medications Given This Visit Future Orders ?No future orders Future Orders ?No future orders Vital Signs Height 155 cm Weight 83.1 kg BMI 34.59 kg/m2 Blood Pressure 134 mm Hg/70 mm Hg Temperature Pulse Rate 62 bpm Respiratory Rate 02 Sat Mode of Delivery 98 %/Room air You can now view a summary of your hospital visit from the comfort of your home through a free online portal called [employer]. [employer] is a website that allows you to securely view your medical information including discharge summary, medications and follow-up visits. ??You can alsosend a secure electronic message to your doctor???s office to request appointments, renew medications or just ask a question. You can enroll at [email or web address] or register during your next [...] primary care provider, you may find a [facility] provider by calling [facility] at [phone]. [facility], in keeping with [facility] guidance, no longer requires face masks [...] team information Care Team Personnel Name: Justa AOC AIRSPACE CONTROL OFFICER, Geni Orlando Position: [facility] Associate Professional Member Role: Primary Care Nurse Address: Address: [address] [place] [address]- Name: Talia Matute RN Position: [facility] RN Member Role: Primary Care Nurse Name: Darshan Benz RN Position: [facility] Outreach Member Role: Primary Care Nurse Name: Santi aJmes MD Position: [facility] Physician - Primary Care Member Role: PCP Address: Address: [address] [place] [address] Adult & [place] [address]- Care Team Related Persons Name: PITER BAILEY Address: home [address] [place] [address] Name: DELMIS ADAMS Address: home [place], [place] Name: RUPERT PALMER Address: home [address] [place], [place] Name: DESIRAE CHAUDHARY Address: home [address] [place], [place]
--- OUTSIDE RECORDS SUMMARY | 2024-07-15 15:51 | XMS_ITS | Continuity of Care Document ---
Author Organization [facility] Address [address] [place] [address]- Care Team Providers Care Civil Rights Investigator Name Role Phone Jacob DORAN, Santi Primary Care Physician Encounter [facility] Date(s): 04/05/24 - 05/05/24 [facility] [address] [place], [place] [address] Allergies, Adverse Reactions, Alerts Substance Reaction Severity Status doxycycline Hives Active nitrofurantoin Pruritus Rash Active morphine Active Percocet Active Topamax Skin rash Active predniSONE Anaphylaxis Active benzonatate Speech impediment Active Lopid Muscle cramps Myalgia and myositis unspecified Active Biaxin Upset stomach Active Lipitor Myalgia unspecified Muscle cramps Active Levaquin Hives Active Demerol Active ezetimibe [...] Note: given at [facility] in [place] 7Admin Note: per pt, done at [facility] 8Admin Note: done @ [facility], form received 9Admin Note: given at work 10Admin Note: given in the fall 11Result Comment: [id number] 12Result Comment: [08/31/2018] [id number] 13Result Comment: [08/24/2015] given w/out incident 14Admin [...] tablet, 3 Refills, Maintenance, 01/17/23 12:44:00 EDT, [id number], 156.15, cm, 11/29/22 14:40:00 EST, Height, 79.5, [...] 90 Unknown,1 Refills, Maintenance, 06/10/23 8:18:00 EDT, [id number], 90, USE 1 SPRAY IN BOTH NOSTRILS [...] 0 Refills, Maintenance, 03/10/24 12:10:00 EDT, Tablet, [facility]/pharmacy #[id number], Partial fill upon patient request if the prescription is for a schedule... Start Date: 03/10/24 Status: Ordered EpiPen 2-Tramaine 0.3 mg injectable kit = 0.3 mg, Intramuscular, Once, PRN Anaphylactic Reaction, may repeat if necessary, # 1 each, 11 Refills, Soft Stop, 03/14/23 15:31:00 EDT, [facility]/pharmacy #[id number], Partial fill upon patient request if theprescription is for a schedule II opioid drug., 155... Start Date: 03/14/23 Status: Ordered fexofenadine 180 mg oral tablet 1 tablet = 180 mg, By Mouth, Daily, PRN for allergy symptoms, # 90 tablet, 4 Refills, Maintenance, 09/02/23 11:04:00 EDT, Tablet, [facility]/pharmacy #[id number], Partial fill upon patient request if the prescription is for a schedule II opioid drug., 155, cm, ... Start Date: 09/02/23 Stop Date: 11/25/24 Status: Ordered ibuprofen 800 mg oral tablet 1, tablet, By Mouth, 3 times a day, X30 DAYS, STOP ASPIRIN WHILE TAKING THIS., # 90 tablet, Refills1, Maintenance, 12/04/23 7:25:00 EST, Route to Pharmacy Electronically, [facility]ORE [id number], 155, cm, 11/18/23 16:29:00 EST, Height, 83.7, kg, 11/06/23 9:0... Start Date: 12/04/23 Status: Ordered ibuprofen 800 mg oral tablet 1, tablet, By Mouth, 3 times a day, PRN, X30 DAYS, STOP ASPIRIN WHILE TAKING THIS. Take with food and/or milk, # 90 tablet, Refills 2, Tot. Refills 2, Maintenance, Pain , Moderate, 04/05/24 15:20:00 EDT, Route to Pharmacy Electronically, [facility]/pharmacy... Start Date: 04/05/24 Stop Date: 07/04/24 Status: Ordered levothyroxine 0.05 mg oral tablet 1 tablet, By Mouth, Daily, # 90 tablet, 3 Refills, Maintenance, 08/12/23 15:31:00 EDT, [facility]/pharmacy#[id number], 155, cm, 08/12/23 15:09:00 EDT, Height, 83.9, kg, 03/13/23 4:46:00 EDT, Dry Weight Start Date: 08/12/23 Stop Date: 08/06/24 Status: Ordered montelukast 10 mg oral tablet 1, tablet, By Mouth, Daily, # 90 tablet, Refills 3, Maintenance, 11/23/23 8:40:00 EST, Route to Pharmacy Electronically, [id number], 155, cm, 11/18/23 16:29:00 EST, Height, 83.7, [...] 4 Refills, Maintenance, 03/28/23 13:04:00 EDT, Aerosol, [facility]/pharmacy #[id number], replaced Proventil that is not available, 155, cm, 03/13/23 11:02:00 EDT, Height, 83.9, kg, 03/13/23 4:46:00 EDT... Start Date: 03/28/23 Stop Date: 08/25/23 Status: Ordered Vitamin D3 1000 intl units oral tablet 1 tablet = 25 mcg, By Mouth, Daily, # 90 tablet, 2 Refills, Maintenance, 01/27/24 14:50:00 EDT, Tablet, [facility]/pharmacy #[id number], may use OTC formulation, 155, [...] Care Nurse Name: Talia Matute RN Position: [facility] RN Member Role: Primary Care Nurse Name: Darshan Benz RN Position: [facility] Outreach Member Role: Primary Care Nurse Name: Santi James MD Position: [facility] Physician - Primary Care Member Role: PCP Address: Address: [address] [place] [address] Adult & [place] [address]- Care Team Related Persons Name: PITER BAILEY Address: home [address] [place] [address] Name: DELMIS ADAMS Address: [place] [address] Name: RUPERT PALMER Address: home [address] [place] [address] Name: DESIRAE CHAUDHARY Address: home [address] [place] [address]
--- OUTSIDE RECORDS SUMMARY | 2024-07-15 15:51 | XMS_ITS | Continuity of Care Document ---
Author Organization [facility] Address [address] [place] [address]- Care Team Providers Care Metal Base Blocker Name Role Phone Jacob DORAN, Santi Primary Care Physician Encounter [facility] Date(s): 09/08/23 - 10/08/23 [facility] [address] [place], [place] [address] Allergies, Adverse Reactions, Alerts Substance [...] 11/03/99 Given 1Admin Note: done @ [facility],form received 2Result Comment: [07/31/2015] [facility] 3Admin Note: done @ [facility] 4Admin Note: vis sheet given. 5Admin Note: work 6Admin Note: given at [facility] in [place] 7Admin Note: per pt, done at [facility] 8Admin Note: done @ [facility], form received 9Admin Note: given at work 10Admin Note: given in the fall 11Result Comment: [id number] 12Result Comment: [08/31/2018] [id number] 13Result Comment: [08/24/2015] given w/out incident 14Admin [...] Refills, Maintenance, 01/17/23 12:44:00 EDT, [facility], 156.15, cm, 11/29/22 14:40:00 EST, Height, 79.5, [...] 90 Unknown,1 Refills, Maintenance, 06/10/23 8:18:00 EDT, [facility], 90, USE 1 SPRAY IN BOTH NOSTRILS [...] 11 Refills, Soft Stop, 03/14/23 15:31:00 EDT, [facility]/pharmacy #7300, Partial fill upon patient request if theprescription is for a schedule II opioid drug., 155... Start Date: 03/14/23 Status: Ordered ergocalciferol 45876 iu oral capsule 50,000 International_Units, 1, capsule, By Mouth, Every week, # 12 capsule, Refills 0, Tot. Refills0, Maintenance, 06/12/23 7:24:00 EDT, [id number], Partial[facility] upon patient request if the prescription is fo... Start Date: 06/12/23 Stop Date: 09/04/23 Status: Ordered fexofenadine 180 mg oral tablet 1 tablet = 180 mg, By Mouth, Daily, PRN for allergy symptoms, # 90 tablet, 4 Refills, Maintenance, 09/02/23 11:04:00 EDT, Tablet, [facility]/pharmacy #[id number], Partial fill upon patient request if the prescription is for a schedule II opioid drug., 155, cm, ... Start Date: 09/02/23 Stop Date: 11/25/24 Status: Ordered fluconazole 150 mg oral tablet 1 tablet = 150 mg, By Mouth, Once, repeat dose if still having symptoms in 72 hours, # 2 tablet, 0 Refills, Soft Stop, 10/03/23 16:14:00 EST, [id number], Partial fill upon patient request if the prescription is for a schedule II opioid... Start Date: 10/03/23 Status: Ordered levothyroxine 0.05 mg oral tablet 1 tablet, By Mouth, Daily, # 90 tablet, 3 Refills, Maintenance, 08/12/23 15:31:00 EDT, [facility]/pharmacy#[id number], 155, cm, 08/12/23 15:09:00 EDT, Height, [...] Soft Stop, 09/30/23 11:01:00 EST, Tablet, [id number], pt has taken t his medication in [...] Role: Primary Care Nurse Address: Address: [address] [place] [address]- Name: Talia Matute RN Position: [facility] RN Member Role: Primary Care Nurse Name: Santi James MD Position: [facility] Physician - Primary Care Member Role: PCP Address: Address: [address] [place] [address] Adult & [place] [address]- Care Team Related Persons Name: PITER BAILEY Address: home [address] [place] [address] Name: DELMIS ADAMS Address: [place] [address] Name: RUPERT PALMER Address: [address] [place] [address] Name: DESIRAE CHAUDHARY Address: home [address] [place] [address]
--- OUTSIDE RECORDS SUMMARY | 2024-07-15 15:51 | XMS_ITS | Continuity of Care Document ---
Author Organization [facility] Address [address] [place] [address]- Care Team Providers Care Lithographic Camera Operator Name Role Phone Santi James MD Primary Care Physician Encounter [facility] Date(s): 06/15/21 - 07/15/21 [facility] [address] [place], [place] [address] Attending Physician: Admtr, Ar8 Allergies, Adverse Reactions, Alerts Substance Reaction Severity Status morphine Active Percocet Active Biaxin Upset stomach Active Augmentin 1 hives Active Bactrim DS Stomach cramps Active Levaquin Hives Active doxycycline Hives Active [...] (Td) 11/03/99 Given 1Admin Note: done @ [facility], form received 2Admin Note: done @ [facility],form received 3Result Comment: [07/31/2015] [facility] 4Admin Note: done @ [facility] 5Admin Note: vis sheet given. 6Admin Note: work 7Admin Note: given at [facility] in [place] 8Admin Note: per pt, done at [facility] 9Admin Note: given at work 10Admin Note: given in the fall 11Result Comment: [id number] 12Result Comment: [08/31/2018] [id number] 13Result Comment: [08/24/2015] given w/out incident 14Admin Note: per pt 15Admin Note: [employer] Medications acetaminophen 650 mg oral tablet, extended release 1 tablet = 650 mg, By Mouth, Every 8 hours, PRN Pain , Moderate, for 30 days, # 90 tablet, 7 Refills, Acute 10/24/21 12:47:00 EST, 02/26/21 12:47:00 EDT, ER Tablet, [id number], 156, cm, 03/13/20 10:31:00 EDT, Height, 78.8, kg, ... Start Date: 02/26/21 Stop Date: 10/24/21 Status: Ordered albuterol 0.083% inhalation solution 3 mL = 2.5 mg, Inhalation, Every 6 hours, PRN for wheezing, Dx: asthma, # 100 each, 4 Refills, Maintenance, 12/01/19 12:54:00 EST, Solution, [facility]/pharmacy #[id number], 156, cm, 12/01/19 12:40:00 EST, Height, 79.6, kg, 03/10/19 14:10:00 EDT, Dry Weight Start Date: 12/01/19 Stop Date: 04/29/20 Status: Ordered albuterol CFC free 90 mcg/inh inhalation aerosol 2, puffs, Inhalation, Every 4 hours, PRN, # 1 each, Refills 3, Tot. Refills 3, Maintenance, 03/13/21 8:25:00 EDT, Aerosol, Route to Pharmacy Electronically, [id number], [id number], 156, cm, 03/13/21 8:16:00 E... Start Date: [...] 3 Refills, Maintenance, 03/13/21 8:26:00 EDT, Tablet, [id number], 156, cm, 03/13/21 8:16:00 EDT, Height, 78.8, kg, 12/20/19 10:35:00 EST, Dry Weight Start Date: 03/13/21 Stop Date: 03/08/22 Status: Ordered Cipro 250 mg oral tablet 1 tablet = 250 mg, By Mouth, Every 12 hours, for 10 days, # 20 tablet, 0 Refills, Acute 07/23/21 16:09:00 EDT, 07/13/21 16:09:00 EDT, Tablet, [facility] #[id number], 156, cm, 03/13/21 8:35:00 EDT, Height, 78.8, [...] mL, 0 Refills, Maintenance, 07/25/20 16:52:00 EDT, [place], [facility]/pharmacy #8786, 2 sprays Nares, Both 2 times a day, 156, cm, 03/13/20 10:31:00 EDT, Height, 78.8, kg, 12/20/19 10:35:00 EST, Dry Weight Start Date: 07/25/20 Status: Ordered levothyroxine 0.05 mg oral tablet 1 tablet = 50 mcg, By Mouth, Daily, # 90 tablet, 3 Refills, Maintenance, 03/13/21 8:24:00 EDT, Tablet, [facility] #[id number], 156, cm, 03/13/21 8:16:00 EDT, Height, 78.8, kg, 12/20/19 10:35:00 EST, Dry Weight Start Date: 03/13/21 Stop Date: 03/08/22 Status: Ordered montelukast 10 mg oral tablet See Instructions, TAKE 1 TABLET BY MOUTH DAILY, # 90 tablet, Refills 1, Instructions Replace Required Details, [id number], 156, cm, 03/13/21 8:35:00EDT, Height, 78.8, kg, [...] each, 0 Refills, Maintenance, 09/14/20 8:47:00 EST, [facility]/pharmacy #[id number], 1 puffs Inhalation 2 times a day,x30 [...]
== END 2024-07-15 15:44 | disposition home or self-care (01) ==
PROVIDERS: Emergency Provider Emergency Medicine; PCP Internal Medicine
DX: M79.604 Pain in right leg (principal)
CPT/HCPCS: 99282